=== PATIENT | female | born 1940 | race Caucasian/White ===

== ENCOUNTER 2019-12-12 12:08 | Emergency (ER) | payer MEDICARE, SELFPAY ==
--- NOTE | 2019-12-12 12:39 | ECG_ITS ---
Test Reason : CHEST PAIN Blood Pressure : / mmHG Vent. Rate : 084 BPM Atrial Rate : 101 BPM P-R Int : 000 ms QRS Dur : 142 ms QT Int : 436 ms P-R-T Axes : 064 060 028 degrees QTc Int : 515 ms Normal sinus rhythm with frequent Premature ventricular complexes Nonspecific T wave abnormality Anterior leads Low voltage QRS Right bundle branch block Abnormal ECG No significant changes seen Referred By: Flavio Acevedo Electronically Signed By:CELESTINO DOMINGUEZ MD
[2019-12-23 14:18] VITALS: BMI 24.7
== END 2019-12-12 15:19 | disposition left against medical advice (07) ==
LOC: HO.ED 15:18
PROVIDERS: Emergency Provider Emergency Medicine; PCP Family Medicine
DX: R07.9 Chest pain, unspecified (principal)
CPT/HCPCS: 93005; 99281

== ENCOUNTER → 2020-01-01 14:10 | Outpatient (BNVA) | payer MEDICARE, SELFPAY | PROVIDERS: Visit Provider Physician Assistant | DX: M65.332 Trigger finger, left middle finger (principal) | CPT/HCPCS: 20550; 99202; J1020 ==

== ENCOUNTER → 2020-01-28 10:13 | Outpatient (BNVA) | payer MEDICARE, SELFPAY | PROVIDERS: PCP Family Medicine; Referring Provider Family Medicine; Visit Provider Nurse Practitioner | DX: K21.9 Gastro-esophageal reflux disease without esophagitis (principal); K86.89 Other specified diseases of pancreas; K59.04 Chronic idiopathic constipation; K31.84 Gastroparesis; R14.2 Eructation; K22.4 Dyskinesia of esophagus; Z79.899 Other long term (current) drug therapy | CPT/HCPCS: Q3014 ==

== ENCOUNTER 2020-02-13 11:13 | Emergency (ER) | payer MEDICARE, SELFPAY ==
[2020-02-13 11:21] VITALS: BP 144/58; PULSE 56; RESP 17; TEMP 36.3; O2SAT 97; BMI 22.6
--- NOTE | 2020-02-13 12:13 | ED_ITS ---
HPI - Wound/Laceration General Chief Complaint: Skin/Abscess/Foreign Body Stated Complaint: lac Time Seen by Provider: 02/13/20 11:48 History of Present Illness HPI narrative: Patient cut right thumb yesterday with the scissors while opening a package, no numbness no weakness no paresthesias no other injury Related Data Home Medications Medication Instructions Recorded Confirmed albuterol 90 mcg/actuation aerosol mcg INHALATION 01/01/20 inhaler amlodipine 10 mg tablet 10 mg PO DAILY 01/01/20 glipizide 5 mg tablet 5 mg PO DAILY 01/01/20 lisinopril 20 mg tablet 20 mg PO DAILY 01/01/20 meclizine 12.5 mg tablet 12.5 mg PO DAILY 01/01/20 sennosides 8.6 mg capsule 8.6 mg PO DAILY 01/01/20 sertraline 100 mg tablet 100 mg PO DAILY 01/01/20 sucralfate 1 gram tablet 1 g PO BID 01/01/20 tolterodine 2 mg tablet 2 mg PO DAILY 01/01/20 topiramate 25 mg tablet 25 mg PO DAILY 01/01/20 baclofen 10 mg tablet 10 mg PO TID 01/27/20 01/27/20 pantoprazole 40 mg tablet,delayed 40 mg PO DAILY 01/27/20 01/27/20 release Previous Rx's Medication Instructions Recorded dicyclomine 20 mg tablet 20 mg PO TID #90 tab 11/26/19 Allergies Allergy/AdvReac Type Severity Reaction Status Date / Time prochlorperazine Allergy Severe SEIZURE Verified 01/28/20 10:17 latex [LATEX] Allergy Intermediate RASH Verified 01/28/20 10:17 clarithromycin Allergy Mild RASH Verified 01/28/20 10:17 hydrochlorothiazide Allergy Mild RASH Verified 01/28/20 10:17 adhesive tape [ADHESIVE TAPE] Allergy Unknown RASH Verified 01/28/20 10:17 ibuprofen Allergy Unknown unknown Verified 01/28/20 10:17 metoclopramide [From Reglan] AdvReac Severe SEIZURES Verified 01/28/20 10:17 milk [MILK] AdvReac Intermediate GI UPSET Verified 01/28/20 10:17 BIAXIN Allergy Unknown RASH Uncoded 12/08/19 14:28 COMPAZINE Allergy Unknown DIZZINESS Uncoded 12/08/19 14:28 Review of Systems Review of Systems: No numbness no weakness or paresthesias no joint pain no skin rash Yes all other systems are reviewed and are negative FOR[facility]LY [facility] Past Medical History Source: nursing notes reviewed Medical History (Updated 02/13/20 @ 12:14 by KARLOS Montero) Anemia Arthritis CAD (coronary artery disease) Depression Diabetes History of hysteroscopy HTN (hypertension) Surgical History History of History of esophagogastroduodenoscopy (EGD) Hx of cholecystectomy Hx of colonoscopy Family History Family History (Updated 01/28/20 @ 10:21 by JAYDA Haddad) Father Colon cancer Myocardial infarction Mother Uterine cancer Social History Social History (Updated 01/28/20 @ 10:22 by JAYDA Haddad) Alcohol intake: never Smoking Status: Never smoker Advance Directives: No Advance Directives Information Provided: Yes Sexual orientation: Straight/Heterosexual Gender identity: female Physical Exam Vital Signs: Vital Signs: Last Vital Signs Temp 97.3 F 02/13/20 11:21 Pulse 56 02/13/20 11:21 Resp 17 02/13/20 11:21 BP 144/58 H 02/13/20 11:21 Pulse Ox 97 02/13/20 11:21 Body Mass Index 22.6 General appearance no distress Head normocephalic atraumatic Neck supple Respiratory no distress Extremities the right hand at the base of the thumb dorsal aspect of the MCP joint has a 1 cm superficial laceration, there is full range of motion no evidence of extensor or flexor tendon deficit, no signs of infection in the skin no redness no warmth, full range of motion all joints and neurovascular intact Course Course Course Narrative: Right hand laceration was 1 cm was cleansed and irrigated with normal saline, 2 Steri-Strips were loosely placed and a Band-Aid was placed Discharge Plan Discharge Clinical Impression: Laceration of hand, right Qualifiers: Encounter type: initial encounter Foreign body presence: without foreign body Qualified Code(s): S61.411A - Laceration without foreign body of right hand, initial encounter Patient Disposition: Home, Self-Care Additional Instructions: Removed tape in 3 or 4 days You got a tetanus shot Return any time for redness swelling pain discharge from wound, any sign of infection Prescriptions: No Action dicyclomine 20 mg tablet 20 mg PO TID Qty: 90 RF: 3 pantoprazole [Protonix] 40 mg tablet,delayed release (DR/EC) 40 mg PO DAILY RF: 0 baclofen 10 mg tablet 10 mg PO TID RF: 0 Interventions: ED Discharge Assessment Last Done: 02/13/20 12:38 Discharge Date/Time: 02/13/20 12:39
== END 2020-02-13 12:39 | disposition home or self-care (01) ==
PROVIDERS: Emergency Provider Emergency Medicine Emergency Medical Services; PCP Family Medicine
DX: S61.411A Laceration without foreign body of right hand, initial encounter (principal); S60.511A Abrasion of right hand, initial encounter; M79.644 Pain in right finger(s); W26.0XXA Contact with knife, initial encounter; Y93.9 Activity, unspecified; Y92.009 Unspecified place in unspecified non-institutional (private) residence as the place of occurrence of the external cause; Y99.9 Unspecified external cause status
CPT/HCPCS: 90471; 90715; 99283; 99284

== ENCOUNTER → 2020-02-23 13:10 | Outpatient (BNVA) | payer MEDICARE, SELFPAY | PROVIDERS: PCP Family Medicine; Referring Provider Family Medicine; Visit Provider Internal Medicine Gastroenterology | DX: Z76.89 Persons encountering health services in other specified circumstances (principal) | CPT/HCPCS: Q3014 ==

== ENCOUNTER 2020-04-01 08:03 | Outpatient (REF) | payer MEDICARE, SELFPAY ==
[2020-03-29 12:14] VITALS: BMI 23.4
[2020-04-01 09:57] LABS: MANUAL DIFF FLAG NO
[2020-04-01 10:05] LABS: Basophils Percent Auto 0.4 % (0-2); Eosinophils Percent Auto 0.6 % (0-4); Hematocrit 32.4 % (37-47); Hemoglobin 10.5 g/dl (12.0-16.0); Imm Gran Abs Auto 0.01 X10*3/uL (0.00-0.03); Imm Gran Pct Auto 0.2 % (0.0-0.4); Lymphocytes Absolute Auto 1.5 X10*3/uL (1.2-4.9); Lymphocytes Percent Auto 27.1 % (20-40); Mean Corpuscular HGB Conc 32.4 g/dl (31.0-35.0); Mean Corpuscular Hemoglobin 29.2 pg (27.0-33.0); Mean Corpuscular Volume 90.3 fL (80-98); Mean Platelet Volume 12.2 fL (9.4-12.3); Monocytes Absolute Auto 0.4 X10*3/uL (0.1-1.2); Monocytes Percent Auto 7.3 % (2-11); Neutrophils Absolute Auto 3.5 X10*3/uL (2.0-8.3); Neutrophils Percent Auto 64.4 % (45-73); Platelet Count 258 X10*3/uL (160-400); Red Blood Count 3.59 X10*6/uL (4.20-5.50); Red Cell Distribution Width 12.9 % (11.0-16.0); White Blood Count 5.4 X10*3/uL (4.8-10.8)
[2020-04-01 10:23] LABS: Alanine Aminotransferase 18 U/L (0-31); Albumin Level 3.8 g/dL (3.5-5.0); Alkaline Phosphatase 115 U/L (39-117); Anion Gap 15 (12-20); Aspartate Amino Transferase 24 U/L (5-31); Bilirubin Direct 0.3 mg/dL (0.0-0.5); Bilirubin Total 0.6 mg/dL (0.0-1.0); Blood Urea Nitrogen 21 mg/dL (9-16); C Reactive Protein 0.02 mg/dL (< or = 0.50); Carbon Dioxide 26 mmol/L (22-29); Chloride 106 mmol/L (96-108); Cholesterol 146 mg/dL; Creatinine Clr Calc Pharmacy 21.8; Estimated Glomerular Filt Rate 33; Glucose Random 167 mg/dL (60-115); HDL Cholesterol 55 mg/dL; Iron 63 mcg/dL (30-160); LDL Cholesterol Calculated 75 mg/dl; Percent Iron Saturation 22 % (15-50); Potassium 3.5 mmol/L (3.3-5.1); Sodium 143 mmol/L (135-145); Total Iron Binding Capacity 281 mcg/dL (228-428); Total Protein 6.5 g/dL (6.5-8.0); Triglycerides 83 mg/dL; Unsaturated Iron Binding 218 ug/dL
[2020-04-01 10:33] LABS: Estimated Average Glucose 180 mg/dL; Hemoglobin A1c % 7.9 %
[2020-04-01 10:33] LABS: Creatinine Urine 145.07 mg/dL; Microalbum/Creatinine Ratio Ur 124.7 ug/mg cr
[2020-04-01 10:44] LABS: Ferritin 25 ng/mL (10-250); TSH reflex Free T4 1.53 uIU/mL (0.32-4.0)
[2020-04-01 10:45] LABS: Vitamin D 25-OH Total 42.9 ng/mL (>30)
[2020-04-01 10:57] LABS: Folate 8.7 ng/mL (> or = 4.0); Vitamin B12 376 pg/mL (200-900)
== END 2020-04-01 08:04 | disposition home or self-care (01) ==
LOC: HO.LAB 08:03
PROVIDERS: Absent Provider Family Medicine; PCP Family Medicine; Visit Provider Internal Medicine Gastroenterology
DX: K59.04 Chronic idiopathic constipation (principal); K31.84 Gastroparesis; K21.9 Gastro-esophageal reflux disease without esophagitis; I12.9 Hypertensive chronic kidney disease with stage 1 through stage 4 chronic kidney disease, or unspecified chronic kidney disease; E11.22 Type 2 diabetes mellitus with diabetic chronic kidney disease; N18.32 Chronic kidney disease, stage 3b
CPT/HCPCS: 36415; 80053; 80061; 80076; 82043; 82248; 82306; 82607; 82728; 82746; 83036; 83540; 84443; 85025; 86140

== ENCOUNTER 2020-04-06 06:21 | Day surgery (SDC) | payer MEDICARE, SELFPAY ==
--- NOTE | 2020-04-02 09:56 | HO.ANESPROP2 ---
Documented by User: Jessica Martino 04/02/20 10:01 HPI - Anesthesia Eval Consult details Narrative: 80yo F for Upper Endoscopy and Colonoscopy PMFSH Active Problems Active Problems: All Active Problems (Updated 03/29/20 @ 12:11 by Keyona Serna) IBS (irritable bowel syndrome) (Acute) Ovarian cyst (Acute) Trigger finger, left (Acute) GERD (gastroesophageal reflux disease) (Acute) Pancreatic insufficiency (Acute) Chronic idiopathic constipation (Acute) Gastroparesis (Acute) Functional belching disorder (Acute) Esophageal spasm (Acute) Past Medical History Medical History Anemia Arthritis CAD (coronary artery disease) Depression Diabetes History of hysteroscopy HTN (hypertension) Family History Family History Father Colon cancer Myocardial infarction Mother Uterine cancer Surgical History Surgical History History of History of esophagogastroduodenoscopy (EGD) Hx of cholecystectomy Hx of colonoscopy Hx of eye surgery Social History Social History Alcohol intake: never Smoking Status: Never smoker Use of substances other than those prescribed or required for medical reasons: No Have you been hit, kicked, punched, or otherwise hurt by someone within the past year? If so, by whom?: No Advance Directives: No Advance Directives Information Provided: Yes Sexual orientation: Straight/Heterosexual Gender identity: female Meds Allergies Allergy/AdvReac Type Severity Reaction Status Date / Time prochlorperazine Allergy Severe SEIZURE Verified 02/23/20 13:11 adhesive tape [ADHESIVE TAPE] Allergy Intermediate RASH Verified 03/29/20 12:12 latex [LATEX] Allergy Intermediate RASH Verified 02/23/20 13:11 clarithromycin Allergy Mild RASH Verified 02/23/20 13:11 hydrochlorothiazide Allergy Mild RASH Verified 02/23/20 13:11 ibuprofen Allergy Unknown unknown Verified 02/23/20 13:11 metoclopramide [From Reglan] AdvReac Severe SEIZURES Verified 02/23/20 13:11 milk [MILK] AdvReac Intermediate GI UPSET Verified 02/23/20 13:11 BIAXIN Allergy Intermediate RASH Uncoded 03/29/20 12:12 Home Medications Medication Instructions Recorded Confirmed Last Taken Type albuterol 90 mcg/actuation aerosol 90 mcg INHALATION Q4-6H PRN 01/01/20 03/29/20 Unknown History inhaler amlodipine 10 mg tablet 10 mg PO DAILY 01/01/20 03/29/20 Unknown History glipizide 5 mg tablet 5 mg PO DAILY 01/01/20 03/29/20 Unknown History lisinopril 20 mg tablet 20 mg PO DAILY 01/01/20 03/29/20 Unknown History meclizine 12.5 mg tablet 12.5 mg PO DAILY 01/01/20 03/29/20 Unknown History sennosides 8.6 mg capsule 8.6 mg PO DAILY 01/01/20 03/29/20 Unknown History sertraline 100 mg tablet 100 mg PO DAILY 01/01/20 03/29/20 Unknown History sucralfate 1 gram tablet 1 g PO BID 01/01/20 03/29/20 Unknown History tolterodine 2 mg tablet 2 mg PO DAILY 01/01/20 03/29/20 Unknown History topiramate 25 mg tablet 25 mg PO DAILY 01/01/20 03/29/20 Unknown History baclofen 10 mg tablet 10 mg PO TID 01/27/20 03/29/20 Unknown History pantoprazole 40 mg tablet,delayed 40 mg PO DAILY 01/27/20 03/29/20 Unknown History release Exam Exam Date and Time: April 02, 2020 0956 Narrative Narrative: 11/2019 Normal sinus rhythm with frequent Premature ventricular complexes Nonspecific T wave abnormality Anterior leads Low voltage QRS Right bundle branch block Abnormal ECG No significant changes seen Echo 2017 LVEF 50-55% Intermed diast function Mild pulm htn Assessment and Plan Assessment Anesthesia Assessment: Chart Reviewed Documented by User: Mary Tellez 04/06/20 07:37 [facility] Past Medical History Medical History Anemia Arthritis CAD (coronary artery disease) Depression Diabetes History of hysteroscopy HTN (hypertension) Family History Family History Father Colon cancer Myocardial infarction Mother Uterine cancer Surgical History Surgical History History of History of esophagogastroduodenoscopy (EGD) Hx of cholecystectomy Hx of colonoscopy Hx of eye surgery Social History Social History Alcohol intake: never Smoking Status: Never smoker Use of substances other than those prescribed or required for medical reasons: No Have you been hit, kicked, punched, or otherwise hurt by someone within the past year? If so, by whom?: No Advance Directives: No Advance Directives Information Provided: Yes Sexual orientation: Straight/Heterosexual Gender identity: female Meds Allergies Allergy/AdvReac Type Severity Reaction Status Date / Time prochlorperazine Allergy Severe SEIZURE Verified 02/23/20 13:11 adhesive tape [ADHESIVE TAPE] Allergy Intermediate RASH Verified 03/29/20 12:12 latex [LATEX] Allergy Intermediate RASH Verified 02/23/20 13:11 clarithromycin Allergy Mild RASH Verified 02/23/20 13:11 hydrochlorothiazide Allergy Mild RASH Verified 02/23/20 13:11 ibuprofen Allergy Unknown unknown Verified 02/23/20 13:11 metoclopramide [From Reglan] AdvReac Severe SEIZURES Verified 02/23/20 13:11 milk [MILK] AdvReac Intermediate GI UPSET Verified 02/23/20 13:11 BIAXIN Allergy Intermediate RASH Uncoded 03/29/20 12:12 Home Medications Medication Instructions Recorded Confirmed Last Taken Type albuterol 90 mcg/actuation aerosol 90 mcg INHALATION Q4-6H PRN 01/01/20 03/29/20 Unknown History inhaler amlodipine 10 mg tablet 10 mg PO DAILY 01/01/20 03/29/20 Unknown History glipizide 5 mg tablet 5 mg PO DAILY 01/01/20 03/29/20 Unknown History lisinopril 20 mg tablet 20 mg PO DAILY 01/01/20 03/29/20 Unknown History meclizine 12.5 mg tablet 12.5 mg PO DAILY 01/01/20 03/29/20 Unknown History sennosides 8.6 mg capsule 8.6 mg PO DAILY 01/01/20 03/29/20 Unknown History sertraline 100 mg tablet 100 mg PO DAILY 01/01/20 03/29/20 Unknown History sucralfate 1 gram tablet 1 g PO BID 01/01/20 03/29/20 Unknown History tolterodine 2 mg tablet 2 mg PO DAILY 01/01/20 03/29/20 Unknown History topiramate 25 mg tablet 25 mg PO DAILY 01/01/20 03/29/20 Unknown History baclofen 10 mg tablet 10 mg PO TID 01/27/20 03/29/20 Unknown History pantoprazole 40 mg tablet,delayed 40 mg PO DAILY 01/27/20 03/29/20 Unknown History release Exam Airway Mallampati Class: II TM Dist: >3cm Neck ROM: Full Partial: Upper and Lower Loose/Missing/Broken Teeth: Yes Heart: RRR Lungs: CTA Assessment and Plan Assessment Anesthesia Assessment: Anesthesia Plan Discussed and Chart Reviewed Final Anesthetic Review NPO: Yes ASA Class: II Final Preanesthetic Review: Meds/Allgs Chart Reviewed, Consent Obtained/Reviewed and Anes Risks/Benef Reviewed Patient Risk: Low Procedure Risk: Intermediate Anesthetic Plan Anesthetic Plan: MAC: Disposition: Standard PACU
[2020-04-06 06:41] VITALS: BP 106/62; PULSE 77; RESP 18; TEMP 36.7; O2SAT 99; BMI 22.2
[2020-04-06 06:52] LABS: Glucose, Whole Blood 184 mg/dL (60-115)
[2020-04-06] MEDS: Lactated Ringers 1,000 ML 100 ML IVCONT (07:09)
--- NOTE | 2020-04-06 07:22 | W.PM.OPN ---
Operative Note Operative Note Date of Service: 04/06/20 Narrative: Pre-op diagnosis: Colon cancer screening, history of colon polyps, GERD Post-op diagnosis: other (Gastritis, hiatal hernia, gastric polyps, colon polyps and diverticulosis) Procedure: FLEXIBLE TRANSORAL UPPER GASTROINTESTINAL ENDOSCOPY WITH BIOPSIES AND COLONOSCOPY TILL CECUM WITH BIOPSIES UPPER ENDOSCOPY Consent: Indications for the procedure and potential complications of bleeding, perforation, reaction to medications and missed diagnosis were discussed with the patient and informed consent was obtained. Instrument: Olympus GIF H 190 mid size upper endoscope Monitoring: Vital signs and clinical assessment, continuous EKG monitoring, Pulse oximetry, Carbon Dioxide monitoring and blood pressure monitoring were done throughout the procedure. Procedure: The patient was placed in the left lateral decubitis position and pre-procedure medications were administered and a bite block was placed. The endoscope was inserted into the mouth and advanced under direct vision to the third part of duodenum. A careful inspection was made as the upper endoscope was withdrawn including a retroflexed examination of the proximal stomach; Findings and interventions are described below. Findings: Larynx: Normal Esophagus: GE junction at 33 cms, small hiatal hernia 33 to 35 cms. No esophagitis or Garcia's. Stomach: Multiple 5 mm to 1.5 cms benign appearing polyps in the fundus and body of the stomach - biopsied. Mild gastric erythema with hemorrhagic gastritis. Biopsies were obtained from the antrum. Grade 2 flap valve on retroflexed examination of the cardia. Duodenum: Normal bulb and descending duodenum. Biopsies were obtained from 3rd part of duodenum to check for celiac sprue. Intervention: Biopsies as noted above COLONOSCOPY PROCEDURE NOTE Consent: Indications for the procedure and potential complications of bleeding, perforation, reaction to medications and missed diagnosis were discussed with the patient and informed consent was obtained. Instrument: Olympus PCF H 190 L variable stiffness pediatric colonoscope Monitoring: Vital signs and clinical assessment, intermittent blood pressure monitoring, continuous EKG monitoring, Pulse oximetry and Carbon Dioxide monitoring were done throughout the procedure. Colon withdrawl time was 30 minutes. Procedure: The patient was placed in the left lateral decubitis position and pre-procedure medications were administered. After a digital rectal examination of the ano-rectum, the video colonoscope was inserted into the rectum and advanced through the colon to the cecum. The colonoscope was slowly withdrawn in a retrograde panoramic fashion and the colon mucosa was carefully examined including a retroflexed view of the rectum. Findings and interventions are described below. Procedure Difficulty: : Without difficulty Findings: Terminal Ileum: Not evaluated Cecum: Normal Ascending Colon: A 10 mm non-bleeding AVM in the proximal ascending colon. Transverse Colon: Two 3-4 mm sessile polyps removed with cold biopsy. Descending Colon: Moderate diverticulosis Sigmoid Colon: Severe diverticulosis with luminal narrowing Rectum: Normal Ano-rectum: Normal Colon preparation: Good after copious irrigation Impression and Post Procedure Diagnosis: Endoscopy Findings: ESOPHAGUS: Small hiatal hernia STOMACH: Hemorrhagic gastritis and multiple gastric polyps DUODENUM: Normal, biopsied to check for celiac. Colonoscopy Findings: Two small polyps removed Moderate to severe diverticulosis seen in the left colon Plan: Await pathology results Patient to schedule an appointment in the GI Clinic with Ashley Hayden NP . Repeat Colonoscopy interval based on path results - in 5 years if polyps are adenomatous and due to a history of adenomatous colon polyps Above findings were reviewed with the patient and Gastritis, Gastric polyps, colon polyps and diverticulosis handouts were given in the discharge area Surgeon: Dawn Mas MD Anesthesia: MAC ([employer] QUALITY [employer]URANCE Cuff) Estimated blood loss (mL): 0 Pathology: other (A. Small bowel, B. Gastric antrum, C. Gastric polyps, D. TC polyps) Condition: stable Disposition: PACU
--- NOTE | 2020-04-06 07:22 | MHC.SHP ---
Pre-Procedural Eval Section A The patient is an INPATIENT: No The History & Physical has been completed within 30 days and I have reviewed it.: No Section B Chief Complaint: GERD, Screening Details of Present Illness: Patient insists that she is very Weak. She wants testing done. She feels food sits in her stomach. She has nausea. She occasionally vomits. She is taking Pantoprazole twice daily with no help/ Her blood sugar this AM was 114. Relevant Family History (Specify if Yes): Yes Relevant Social History: None Present Medications: see Short Stay Collaborative assessment Medical History: Significant History (Anemia Arthritis CAD (coronary artery disease) Depression Diabetes History of hysteroscopy HTN (hypertension)) History of Previous Operations: Relevant previous surgery/procedure and date(s) (History of History of esophagogastroduodenoscopy (EGD) Hx of cholecystectomy Hx of colonoscopy) Allergies: Allergies Allergy/AdvReac Type Severity Reaction Status Date / Time prochlorperazine Allergy Severe SEIZURE Verified 02/23/20 13:11 adhesive tape [ADHESIVE TAPE] Allergy Intermediate RASH Verified 03/29/20 12:12 latex [LATEX] Allergy Intermediate RASH Verified 02/23/20 13:11 clarithromycin Allergy Mild RASH Verified 02/23/20 13:11 hydrochlorothiazide Allergy Mild RASH Verified 02/23/20 13:11 ibuprofen Allergy Unknown unknown Verified 02/23/20 13:11 metoclopramide [From Reglan] AdvReac Severe SEIZURES Verified 02/23/20 13:11 milk [MILK] AdvReac Intermediate GI UPSET Verified 02/23/20 13:11 BIAXIN Allergy Intermediate RASH Uncoded 03/29/20 12:12 Review of Systems Sugical H&P ROS: Negative: Constitution, Cardiovascular and Respiratory and Yes, Specify: Gastrointestinal (as noted above) Exam Surgical H&P Exam: Normal: Heart, Normal: Lungs, Normal: Extremities and Normal: Abdomen Plan Diagnosis/Plan: Unchanged I have reviewed the history and physical and performed a pertinent physical examination on my patient. No changes have occurred unless specified.
[2020-04-06 08:53] VITALS: BP 147/68; PULSE 71; RESP 20; TEMP 36.1; O2SAT 98
[2020-04-06 09:08] VITALS: BP 165/68; PULSE 70; RESP 16; O2SAT 100
[2020-04-06 09:23] VITALS: BP 158/62; PULSE 66; RESP 16; TEMP 36.1; O2SAT 100
== END 2020-04-06 10:44 ==
LOC: HO.SSS 06:21
PROVIDERS: PCP Family Medicine; Visit Provider Internal Medicine Gastroenterology
PROC: (CPT 45380; principal; 2020-04-06 07:30)
DX: Z12.11 Encounter for screening for malignant neoplasm of colon (principal); D12.3 Benign neoplasm of transverse colon; K57.30 Diverticulosis of large intestine without perforation or abscess without bleeding; Q27.33 Arteriovenous malformation of digestive system vessel; K29.71 Gastritis, unspecified, with bleeding; K31.7 Polyp of stomach and duodenum; K44.9 Diaphragmatic hernia without obstruction or gangrene; K21.9 Gastro-esophageal reflux disease without esophagitis; E11.9 Type 2 diabetes mellitus without complications; I10 Essential (primary) hypertension; Z79.84 Long term (current) use of oral hypoglycemic drugs; Z79.899 Other long term (current) drug therapy; Z80.0 Family history of malignant neoplasm of digestive organs; Z88.8 Allergy status to other drugs, medicaments and biological substances
CPT/HCPCS: 45380; 43239; 82947; 88305; 88342; J3010

== ENCOUNTER 2020-04-16 11:06 | Outpatient (REF) | payer MEDICARE, SELFPAY ==
--- NOTE | ~2020-04-16 | XR_ITS ---
EXAMINATION: XR HIP, RIGHT CLINICAL INFORMATION: Pain COMPARISON: Previous x-ray February 2019 TECHNIQUE: Two views of the right hip. FINDINGS: Bone alignment is normal. No fracture or dislocation is seen. There is arthritis at the right hip joint with joint space narrowing and osteophyte formation. There is proliferative bone reaction or osteophytes at the right iliac crest and greater trochanter. There are adjacent soft tissue calcifications. There is soft tissue arterial calcification. XR/XR hip RT min 2V IMPRESSION: Moderate right hip arthritis.
== END 2020-04-16 11:07 | disposition home or self-care (01) ==
LOC: HO.XRAY 11:06
PROVIDERS: PCP Family Medicine; Visit Provider Family Medicine
DX: M25.551 Pain in right hip (principal)
CPT/HCPCS: 73502

== ENCOUNTER → 2020-05-05 15:07 | Outpatient (BNVA) | payer MEDICARE, SELFPAY | PROVIDERS: PCP Family Medicine; Visit Provider Internal Medicine Gastroenterology ==

== ENCOUNTER 2020-05-13 22:22 | Observation (INO) | payer MEDICARE, SELFPAY ==
--- NOTE | 2020-05-13 | ECG_ITS ---
Test Reason : CHEST PAIN Blood Pressure : / mmHG Vent. Rate : 088 BPM Atrial Rate : 088 BPM P-R Int : 132 ms QRS Dur : 130 ms QT Int : 448 ms P-R-T Axes : 052 058 038 degrees QTc Int : 542 ms Sinus rhythm with frequent Premature ventricular complexes Right bundle branch block Abnormal ECG When compared with ECG of 12-DEC-2019 12:39, No significant change was found Referred By: Generic ED Physician Electronically Signed By:SUAJTA LINDA
--- NOTE | ~2020-05-13 | XR_ITS ---
EXAMINATION: XR ABDOMEN KUB CLINICAL INDICATION: Constipated COMPARISON: 08/20/2017 TECHNIQUE: AP view of the abdomen and pelvis. FINDINGS: There is formed stool throughout the marginal artery of the large bowel with no large or small bowel dilatation to suggest obstruction. The rectum is air-filled. XR/XR KUB IMPRESSION: No evidence of intestinal obstruction. Large stool burden which may indicate constipation.
--- NOTE | ~2020-05-13 | CT_ITS ---
EXAMINATION: CT HEAD WITHOUT CONTRAST CLINICAL INFORMATION: Headache. COMPARISON: 11/07/2019. TECHNIQUE: Contiguous helical images of the brain were obtained without IV contrast. Multiplanar reconstructions were performed. DLP: 732 mGy-cm. FINDINGS: There are no pathologic extra-axial fluid collections. The lateral, third, fourth ventricles are nondilated and concordant with the appearance of the sulci. There is no evidence for acute intraparenchymal hemorrhage or infarct. There is neither mass nor mass effect. There is no shift of midline structures. The paranasal sinuses and mastoid air cells are clear. There are no osseous lesions. CT/CT head/brain wo con IMPRESSION: No evidence for acute intracranial injury. Automated exposure control (Care Dose) Adjustment of the mA and/or kv according to patient size (this includes techniques or standardized protocols for targeted exams where dose is matched to indication / reason for exam; i.e. extremities or head).
--- NOTE | ~2020-05-13 | XR_ITS ---
EXAMINATION: XR CHEST CLINICAL INFORMATION: Chest pain COMPARISON: 12/11/2017 TECHNIQUE: Frontal view of the chest was obtained. FINDINGS: No significant abnormality is noted involving the heart, lungs, mediastinum, bony thorax or soft tissues. Degenerative changes present in the AC joint and both shoulders. XR/XR chest 1V IMPRESSION: No acute intrathoracic disease.
--- NOTE | ~2020-05-13 | NM_ITS ---
EXERCISE MYOCARDIAL PERFUSION STUDY INDICATION: Chest pain, assess for coronary disease and ischemia TECHNIQUE: The patient was brought in for an exercise perfusion study on 05/14/2020. Patient performed exercise as per [facility]arez protocol and was injected 25 mCi of sestamibi once target heart rate was achieved. Images were obtained using the SPECT gamma camera interlaced with the gating device. Images were obtained in supine position. Resting perfusion study was performed on 05/15/2020. Patient was administered 25 mCi of sestamibi intravenously at rest. Images were then obtained in supine position. Total DLP 53mGy-cm. Images were processed with the software and compared side to side in short axis, horizontal long axis and vertical long axis views. FINDINGS: Raw images were reviewed. The stress perfusion study showed mildly decreased tracer uptake in the distal part of anterior wall. With CT attenuation correction, this is still present. The gated study shows normal LV systolic function with calculated LVEF of 59%. LV cavity is normal in size. The gated study shows normal wall thickening and contraction of segments. Resting study shows diminished tracer uptake along the distal part of anterior wall, similar to the stress acquisition and unchanged with attenuation correction. Gating at rest reveals normal wall motion with ejection fraction at 69%. The findings are consistent with no reversible defects. Mild distal anterior/apical fixed defect. NM/NM cristy perf SPECT rest & str IMPRESSION: 1. Myocardial perfusion imaging study shows no ischemia. Mild defect in the most distal part of anterior wall and adjacent apex that could possibly be from an old nontransmural infarct vs artifactual etiology. 2. Gated LVEF is 59% during stress and 69% during rest. 3. Transient ischemic dilatation ratio 1.32. EKG component of the test reported separately.
[2020-05-13 22:57] VITALS: BP 173/70; PULSE 124; RESP 18; TEMP 37; O2SAT 100; BMI 22.6
--- NOTE | 2020-05-13 23:49 | ED.CHESTPAIN ---
HPI - Chest Pain General Chief Complaint: Chest Pain Stated Complaint: Chest pain Time Seen by Provider: 05/13/20 23:49 Source: patient Mode of arrival: ambulatory Limitations: no limitations History of Present Illness HPI narrative: Of hypertension coronary artery disease had a cardiac catheterization in 2016 which showed mid LAD blockage but stent was not placed it was it was not significant. Patient on baby aspirin today she woke up at 08:00 with headache and noticed her blood pressure was high took her blood pressure medication and baby aspirin that she developed left-sided chest pain radiating to left arm which has been there all day. Patient seems a little anxious blood pressure on arrival was 173/70 heart rate of 124 with frequent PVCs. Patient denies any nausea no vomiting no shortness of breath does not get this kind of headache or chest pain very often , no leg swelling MD complaint: chest pain Pertinent past history: coronary artery disease Onset (ago): day(s) Timing of current episode: constant Prior episodes: Yes Onset: during rest Pain location: left chest Pain radiation: left arm Severity: mild Quality: heaviness Relieving factors: nothing Exacerbating factors: nothing Related Data Home Medications Medication Instructions Recorded Confirmed albuterol 90 mcg/actuation aerosol 90 mcg INHALATION Q4-6H PRN 01/01/20 03/29/20 inhaler amlodipine 10 mg tablet 10 mg PO DAILY 01/01/20 03/29/20 glipizide 5 mg tablet 5 mg PO DAILY 01/01/20 03/29/20 lisinopril 20 mg tablet 20 mg PO DAILY 01/01/20 03/29/20 meclizine 12.5 mg tablet 12.5 mg PO DAILY 01/01/20 03/29/20 sennosides 8.6 mg capsule 8.6 mg PO DAILY 01/01/20 03/29/20 sertraline 100 mg tablet 100 mg PO DAILY 01/01/20 03/29/20 sucralfate 1 gram tablet 1 g PO BID 01/01/20 03/29/20 tolterodine 2 mg tablet 2 mg PO DAILY 01/01/20 03/29/20 topiramate 25 mg tablet 25 mg PO DAILY 01/01/20 03/29/20 baclofen 10 mg tablet 10 mg PO TID 01/27/20 03/29/20 pantoprazole 40 mg tablet,delayed 40 mg PO DAILY 01/27/20 03/29/20 release Allergies Allergy/AdvReac Type Severity Reaction Status Date / Time prochlorperazine Allergy Severe SEIZURE Verified 05/05/20 15:09 adhesive tape [ADHESIVE TAPE] Allergy Intermediate RASH Verified 05/05/20 15:09 latex [LATEX] Allergy Intermediate RASH Verified 05/05/20 15:09 clarithromycin Allergy Mild RASH Verified 05/05/20 15:09 hydrochlorothiazide Allergy Mild RASH Verified 05/05/20 15:09 metoclopramide [From Reglan] AdvReac Severe SEIZURES Verified 05/05/20 15:09 milk [MILK] AdvReac Intermediate GI UPSET Verified 05/05/20 15:09 ibuprofen AdvReac Unknown unknown Verified 05/05/20 15:09 BIAXIN Allergy Intermediate RASH Uncoded 04/06/20 07:41 Review of Systems Review of Systems: Constitutional : No Weight loss, No Fever, No Chills ENT/Mouth : No sore throat, No Rhinorrhea Eyes: No Eye Pain, No Swelling Cardiovascular : ++ Chest Pain, no palpitations Respiratory : No Cough, No Sputum, no shortness of breath Gastrointestinal : no Nausea, No Vomiting, No Diarrhea, No abdominal Pain, no black stools Genitourinary : No Dysuria, No Urinary Frequency Musculoskeletal : No joint pain, No Myalgias, No Joint Swelling Skin : No Skin Lesions, No rash Neuro : No Weakness, No Numbness, No Dizziness, ++Headache Psych : No Anxiety/Panic, No Depression Heme/Lymph: No Bruising, No Lymphadenopathy Endocrine : No Polyuria, No Polydipsia All other systems reviewed and are negative [facility] Past Medical History Medical History Anemia Arthritis CAD (coronary artery disease) Depression Diabetes History of hysteroscopy HTN (hypertension) Surgical History History of History of esophagogastroduodenoscopy (EGD) Hx of cholecystectomy Hx of colonoscopy Hx of eye surgery Family History Family History Father Colon cancer Myocardial infarction Mother Uterine cancer Social History Social History Alcohol intake: never Smoking Status: Never smoker Advance Directives: No Sexual orientation: Straight/Heterosexual Gender identity: female Physical Exam Vital Signs: Vital Signs: Last Vital Signs Temp 98.6 F 05/13/20 22:57 Pulse 62 05/14/20 01:12 Resp 16 05/14/20 01:12 BP 161/65 H 05/14/20 01:12 Pulse Ox 99 05/14/20 01:12 Body Mass Index 22.6 Const: General: comfortable and no acute distress Nutritional Appearance: average body habitus Orientation/consciousness: patient oriented x3 HENMT: Head: Yes normocephalic and Yes atraumatic Ears: hearing grossly normal bilaterally General nose exam: Normal external nose present Face and sinus: Yes normal facial exam Mouth: Normal oral and palatal mucosa present Throat: Yes posterior oropharynx normal Eyes: General: appearance normal, both eyes and all related structures Conjunctivae: conjunctivae normal Sclerae: sclerae normal Corneas: corneas normal Pupils: Equal, round and reactive pupils present Neck: Neck: Yes normal visual inspection, Yes no meningeal signs and Yes no JVD Thyroid: Thyroid normal Carotids: normal carotid upstroke and no bruits Chest: Chest palpation & inspection: normal inspection of the chest Resp: Effort & Inspection: normal respiratory effort Auscultation: no crackles, no rales and no rhonchi Cardio: Jugular venous distension: no JVD Palpation: normal PMI Rate: regular rate Rhythm: regular rhythm Heart sounds: S1 normal heart sound present and S2 normal heart sound present Peripheral pulses: Peripheral pulses 2+ throughout GI: Inspection: Yes normal to inspection Palpation (GI): Soft to palpation and nontender Auscultation: normal bowel sounds : General: Yes no CVA tenderness Back/Spine/Pelvis: Back: no CVA tenderness Thoracic/Lumbar Spine: thoracic and lumbar spine normal to inspection Skin: General skin exam: no rashes or lesions noted Neuro: General: patient oriented x3, gait normal, tone normal, moves all extremities, Normal light touch and pain sensation, no meningeal signs, no focal motor deficits and CN's II-XI intact bilaterally Cranial nerves: Yes Equal, round and reactive pupils present Extrem: General: Yes normal to inspection, Yes no calf tenderness and No pedal edema MDM - Chest Pain MDM Narrative Medical decision making narrative: Patient with nonspecific headache and chest pain with CKD troponin slightly elevated to 14.4 likely from renal failure no acute EKG changes patient does have a history of coronary disease with LAD lesion 5 years ago without any revascularization. Will admit patient for observation to rule out ACS. Patient had CT is negative for any acute bleed Differential Diagnosis Differential diagnosis: Likely unstable angina pectoris, atypical chest pain and chest pain Medical Records Data Attestation: I reviewed the patient's medical records. Lab Data Attestation: I reviewed the patient's lab results. Result diagrams: 05/14/20 00:51 05/14/20 00:52 Labs: Lab Results 05/14/20 05/14/20 05/14/20 Range/Units 00:51 00:51 00:51 WBC 7.5 (4.8-10.8) X10*3/uL RBC 3.59 L (4.20-5.50) X10*6/uL Hgb 10.4 L (12.0-16.0) g/dl Hct 31.9 L (37-47) % MCV 88.9 (80-98) fL MCH 29.0 (27.0-33.0) pg MCHC 32.6 (31.0-35.0) g/dl RDW 12.9 (11.0-16.0) % Plt Count 235 (160-400) X10*3/uL MPV 11.5 (9.4-12.3) fL Immature Gran % (Auto) 0.0 (0.0-0.4) % Neut % (Auto) 51.6 (45-73) % Lymph % (Auto) 37.8 (20-40) % [place] % (Auto) 8.7 (2-11) % Eos % (Auto) 1.6 (0-4) % Baso % (Auto) 0.3 (0-2) % Lymph # (Auto) 2.8 (1.2-4.9) X10*3/uL [place] # (Auto) 0.7 (0.1-1.2) X10*3/uL Eos # (Auto) 0.1 (0.0-0.4) X10*3/uL Baso # (Auto) 0.0 (0.0-0.2) X10*3/uL Abs Immat Gran (auto) 0.00 (0.00-0.03) X10*3/uL Absolute Neuts (auto) 3.9 (2.0-8.3) X10*3/uL Absolute Nucleated RBC 0.000 (0.0-0.012) X10*3/uL Nucleated RBC % (auto) 0.0 (0.0-0.2) /100WBC PT 12.6 (10.8-13.0) SEC INR 1.1 (0.9-1.1) APTT 34.6 (24.1-38.0) SEC Hold Blue Top SEE NOTE Sodium (135-145) mmol/L Potassium (3.3-5.1) mmol/L Chloride (96-108) mmol/L Carbon Dioxide (22-29) mmol/L Anion Gap (12-20) BUN (9-16) mg/dL Creatinine (0.5-1.4) mg/dL Estim Creat Clear Calc Estimated GFR Random Glucose (60-115) mg/dL Calcium (8.4-10.2) mg/dL Troponin I High Sens 14.4 (<3.5-17.0) ng/L 05/14/20 Range/Units 00:52 WBC (4.8-10.8) X10*3/uL RBC (4.20-5.50) X10*6/uL Hgb (12.0-16.0) g/dl Hct (37-47) % MCV (80-98) fL MCH (27.0-33.0) pg MCHC (31.0-35.0) g/dl RDW (11.0-16.0) % Plt Count (160-400) X10*3/uL MPV (9.4-12.3) fL Immature Gran % (Auto) (0.0-0.4) % Neut % (Auto) (45-73) % Lymph % (Auto) (20-40) % [place] % (Auto) (2-11) % Eos % (Auto) (0-4) % Baso % (Auto) (0-2) % Lymph # (Auto) (1.2-4.9) X10*3/uL [place] # (Auto) (0.1-1.2) X10*3/uL Eos # (Auto) (0.0-0.4) X10*3/uL Baso # (Auto) (0.0-0.2) X10*3/uL Abs Immat Gran (auto) (0.00-0.03) X10*3/uL Absolute Neuts (auto) (2.0-8.3) X10*3/uL Absolute Nucleated RBC (0.0-0.012) X10*3/uL Nucleated RBC % (auto) (0.0-0.2) /100WBC PT (10.8-13.0) SEC INR (0.9-1.1) APTT (24.1-38.0) SEC Hold Blue Top Sodium 142 (135-145) mmol/L Potassium 3.5 (3.3-5.1) mmol/L Chloride 104 (96-108) mmol/L Carbon Dioxide 26 (22-29) mmol/L Anion Gap 16 (12-20) BUN 17 H (9-16) mg/dL Creatinine 1.43 H (0.5-1.4) mg/dL Estim Creat Clear Calc 23.2 Estimated GFR 35 Random Glucose 162 H (60-115) mg/dL Calcium 8.9 (8.4-10.2) mg/dL Troponin I High Sens (<3.5-17.0) ng/L ECG Data ECG #1: Attestation: I personally reviewed and interpreted this ECG as follows: Interpretation: Normal sinus rhythm with frequent unifocal PVCs, right bundle branch block no acute ST T wave changes no acute ischemia Discharge Plan Discharge Prescriptions: No Action pantoprazole [Protonix] 40 mg tablet,delayed release (DR/EC) 40 mg PO DAILY RF: 0 baclofen 10 mg tablet 10 mg PO TID RF: 0 sucralfate [Carafate] 1 gram tablet 1 g PO BID RF: 0 albuterol 90 mcg/actuation aerosol 90 mcg inhalation Q4-6H PRN (Reason: Shortness Of Breath) RF: 0 lisinopril 20 mg tablet 20 mg PO DAILY RF: 0 glipizide 5 mg tablet 5 mg PO DAILY RF: 0 senna 8.6 mg capsule 8.6 mg PO DAILY RF: 0 sertraline [Zoloft] 100 mg tablet 100 mg PO DAILY RF: 0 amlodipine 10 mg tablet 10 mg PO DAILY RF: 0 topiramate [Topamax] 25 mg tablet 25 mg PO DAILY RF: 0 meclizine 12.5 mg tablet 12.5 mg PO DAILY RF: 0 tolterodine [Detrol] 2 mg tablet 2 mg PO DAILY RF: 0
[2020-05-14] VITALS (9 sets, daily range): BP systolic 133–166; BP diastolic 54–74; PULSE 62–104; RESP 13–18; TEMP 36.4; O2SAT 98–100
[2020-05-14 00:56] LABS: MANUAL DIFF FLAG NO
[2020-05-14 00:59] LABS: Basophils Percent Auto 0.3 % (0-2); Eosinophils Absolute Auto 0.1 X10*3/uL (0.0-0.4); Eosinophils Percent Auto 1.6 % (0-4); Hematocrit 31.9 % (37-47); Hemoglobin 10.4 g/dl (12.0-16.0); Lymphocytes Absolute Auto 2.8 X10*3/uL (1.2-4.9); Lymphocytes Percent Auto 37.8 % (20-40); Mean Corpuscular HGB Conc 32.6 g/dl (31.0-35.0); Mean Corpuscular Volume 88.9 fL (80-98); Mean Platelet Volume 11.5 fL (9.4-12.3); Monocytes Absolute Auto 0.7 X10*3/uL (0.1-1.2); Monocytes Percent Auto 8.7 % (2-11); Neutrophils Absolute Auto 3.9 X10*3/uL (2.0-8.3); Neutrophils Percent Auto 51.6 % (45-73); Platelet Count 235 X10*3/uL (160-400); Red Blood Count 3.59 X10*6/uL (4.20-5.50); Red Cell Distribution Width 12.9 % (11.0-16.0); White Blood Count 7.5 X10*3/uL (4.8-10.8)
--- NOTE | 2020-05-14 01:03 | PC.NURSE ---
Late Entry: Angel Thomas RN able to obtain IV access and labs on behalf of this RN. Labs drawn and sent for analysis. Awaiting results. When this RN entered the room earlier, pt was away for imaging.
[2020-05-14 01:15] LABS: INTERNATIONAL NORM RATIO 1.1 (0.9-1.1); Prothrombin Time 12.6 SEC (10.8-13.0)
[2020-05-14 01:16] LABS: Anion Gap 16 (12-20); Blood Urea Nitrogen 17 mg/dL (9-16); Calcium 8.9 mg/dL (8.4-10.2); Carbon Dioxide 26 mmol/L (22-29); Chloride 104 mmol/L (96-108); Creatinine Clr Calc Pharmacy 23.2; Estimated Glomerular Filt Rate 35; Glucose Random 162 mg/dL (60-115); Potassium 3.5 mmol/L (3.3-5.1); Sodium 142 mmol/L (135-145)
[2020-05-14 01:18] LABS: Partial Thromboplastin Time 34.6 SEC (24.1-38.0)
[2020-05-14 01:22] LABS: Troponin-I High Sensitivity 14.4 ng/L (<3.5-17.0)
[2020-05-14 01:23] LABS: Glucose Urine UA NEG (NEG); Leukocyte Esterase Urine NEG (NEG); Nitrite Urine NEG (NEG); Specific Gravity - Urine <= 1.005 (1.005-1.025); Urine Blood TRACE (NEG); Urine Ketones NEG (NEG); Urine Protein NEG (NEG-TRACE)
[2020-05-14 01:49] LABS: Appearance Urine CLEAR; Color Urine COLORLESS
[2020-05-14] MEDS: Morphine Sulfate 2 MG/ML CARTRIDGE IVPUSH (01:59)
[2020-05-14] MEDS: ondansetron HCL 4 MG/2 ML VIAL IVPUSH ×2 (01:59→08:21)
[2020-05-14] MEDS: Aspirin 81 MG TAB.CHEW PO (01:59)
[2020-05-14] MEDS: Nitroglycerin 2 % Oint 1 GM Packet 1 INCH TRANSDERMA (02:15)
[2020-05-14 02:38] LABS: Calcium Oxalate Crystals Urine TRACE /LPF; RBC Urine 0-2 /HPF (0); Squamous Epithelial Cell Urine TRACE /LPF; WBC Urine 0-2 /HPF (0-4)
[2020-05-14 02:48] LABS: Troponin-I High Sensitivity 14.1 ng/L (<3.5-17.0)
[2020-05-14 02:49] LABS: COVID-19 Test Negative (Negative); IDNOW Serial# 9DD0AD1C
--- NOTE | 2020-05-14 06:55 | P.HPHOSP_ITS ---
History of Present Illness Date of Service: 05/14/20 Chief Complaint: Chest pain This is a 80-year-old female with past medical history of CAD, depression, diabetes, hypertension, anemia, arthritis who presents to the hospital with complaints of chest pain. Patient reports that she woke up at around 8:00 p.m. with midsternal, pressure-like chest pain, radiating to the left arm, associated with nausea, no vomiting, she feels like she has gas and has not moved her bowels in 3 days. She is very uncomfortable, appears anxious. She also had a headache that was frontal, improved with pain medication received in the ED, pain is 10/10, constant. On arrival to the ED patient vitals are significant for temp of 98.6?, heart rate of 124, respiratory rate of 18, blood pressure of 173/70, satting 100% on room air Labs are significant for WBC count of 7.5, hemoglobin of 10.4, BUN of 17, creatinine of 1.43 which is around her baseline, troponin x2 14 EKG shows sinus rhythm with PVCs, no evidence of ST T-wave changes suggestive of ACS Past medical history as below lung confirmed with patient Review of Systems Review of Systems: Yes all other systems are reviewed and are negative [facility] Medical History Anemia Arthritis CAD (coronary artery disease) Depression Diabetes History of hysteroscopy HTN (hypertension) Family History Father Colon cancer Myocardial infarction Mother Uterine cancer Surgical History History of History of esophagogastroduodenoscopy (EGD) Hx of cholecystectomy Hx of colonoscopy Hx of eye surgery Social History Alcohol intake: never Smoking Status: Never smoker Advance Directives: No Sexual orientation: Straight/Heterosexual Gender identity: female Meds Allergies Allergy/AdvReac Type Severity Reaction Status Date / Time prochlorperazine Allergy Severe SEIZURE Verified 05/14/20 06:46 adhesive tape [ADHESIVE TAPE] Allergy Intermediate RASH Verified 05/14/20 06:46 latex [LATEX] Allergy Intermediate RASH Verified 05/14/20 06:46 clarithromycin Allergy Mild RASH Verified 05/14/20 06:46 hydrochlorothiazide Allergy Mild RASH Verified 05/14/20 06:46 metoclopramide [From Reglan] AdvReac Severe SEIZURES Verified 05/14/20 06:46 milk [MILK] AdvReac Intermediate GI UPSET Verified 05/14/20 06:46 ibuprofen AdvReac Unknown unknown Verified 05/14/20 06:46 BIAXIN Allergy Intermediate RASH Uncoded 05/14/20 06:46 Home Medications Medication Instructions Recorded Confirmed Last Taken Type albuterol 90 mcg/actuation aerosol 90 mcg INHALATION Q4-6H PRN 01/01/20 03/29/20 Unknown History inhaler amlodipine 10 mg tablet 10 mg PO DAILY 01/01/20 03/29/20 Unknown History glipizide 5 mg tablet 5 mg PO DAILY 01/01/20 03/29/20 Unknown History lisinopril 20 mg tablet 20 mg PO DAILY 01/01/20 03/29/20 Unknown History meclizine 12.5 mg tablet 12.5 mg PO DAILY 01/01/20 03/29/20 Unknown History sennosides 8.6 mg capsule 8.6 mg PO DAILY 01/01/20 03/29/20 Unknown History sertraline 100 mg tablet 100 mg PO DAILY 01/01/20 03/29/20 Unknown History sucralfate 1 gram tablet 1 g PO BID 01/01/20 03/29/20 Unknown History tolterodine 2 mg tablet 2 mg PO DAILY 01/01/20 03/29/20 Unknown History topiramate 25 mg tablet 25 mg PO DAILY 01/01/20 03/29/20 Unknown History baclofen 10 mg tablet 10 mg PO TID 01/27/20 03/29/20 Unknown History pantoprazole 40 mg tablet,delayed 40 mg PO DAILY 01/27/20 03/29/20 Unknown Hist ory release Physical Exam Vital Signs and Narrative: Vital Signs: Last Vital Signs Temp 98.6 F 05/13/20 22:57 Pulse 70 05/14/20 02:15 Resp 13 05/14/20 02:00 BP 162/65 H 05/14/20 02:15 Pulse Ox 100 05/14/20 02:00 Body Mass Index 22.6 Const: General: cooperative and no acute distress Orientation/consciousness: patient oriented x3 Eyes: General: appearance normal, both eyes and all related structures Resp: Effort & Inspection: normal respiratory effort and able to speak in complete sentences Cardio: Rate: regular rate Rhythm: regular rhythm GI: Other: Diffuse Abdominal tenderness, no rebound, no guarding Palpation (GI): Soft to palpation Auscultation: normal bowel sounds Skin: General skin exam: no rashes or lesions noted Neuro: General: patient oriented x3 Cognition (Neuro): normal cognition Extrem: General: Yes normal to inspection and Yes no pedal edema Results Labs CBC and Chem 7: 05/14/20 00:51 05/14/20 00:52 Labs: Laboratory Results - last 24 hr 05/14/20 05/14/20 05/14/20 00:51 00:51 00:51 MCV 88.9 MCH 29.0 MCHC 32.6 RDW 12.9 Plt Count 235 MPV 11.5 Immature Gran % (Auto) 0.0 Neut % (Auto) 51.6 Lymph % (Auto) 37.8 [place] % (Auto) 8.7 Eos % (Auto) 1.6 Baso % (Auto) 0.3 Lymph # (Auto) 2.8 [place] # (Auto) 0.7 Eos # (Auto) 0.1 Baso # (Auto) 0.0 Abs Immat Gran (auto) 0.00 Absolute Neuts (auto) 3.9 Absolute Nucleated RBC 0.000 Nucleated RBC % (auto) 0.0 PT 12.6 INR 1.1 APTT 34.6 Hold Blue Top SEE NOTE Anion Gap Estim Creat Clear Calc Estimated GFR Random Glucose Calcium Troponin I High Sens 14.4 Urine Color Urine Appearance Urine pH Ur Specific [place] Urine Protein Urine Glucose (UA) Urine Ketones Urine Blood Urine Nitrite Ur Leukocyte Esterase Urine RBC Urine WBC Ur Squamous Epith Cells Calcium Oxalate Crystal Urine Bacteria COVID-19 ([facility]E) COVID-19 Clin Com 05/14/20 05/14/20 05/14/20 00:52 01:15 02:12 MCV MCH MCHC RDW Plt Count MPV Immature Gran % (Auto) Neut % (Auto) Lymph % (Auto) [place] % (Auto) Eos % (Auto) Baso % (Auto) Lymph # (Auto) [place] # (Auto) Eos # (Auto) Baso # (Auto) Abs Immat Gran (auto) Absolute Neuts (auto) Absolute Nucleated RBC Nucleated RBC % (auto) PT INR APTT Hold Blue Top Anion Gap 16 Estim Creat Clear Calc 23.2 Estimated GFR 35 Random Glucose 162 H Calcium 8.9 Troponin I High Sens Urine Color COLORLESS Urine Appearance CLEAR Urine pH 6.0 Ur Specific [place] <= 1.005 Urine Protein NEG Urine Glucose (UA) NEG Urine Ketones NEG Urine Blood TRACE Urine Nitrite NEG Ur Leukocyte Esterase NEG Urine RBC 0-2 Urine WBC 0-2 Ur Squamous Epith Cells TRACE Calcium Oxalate Crystal TRACE Urine Bacteria NONE COVID-19 ([facility]LENE) Negative COVID-19 Clin Com See Note 05/14/20 02:14 MCV MCH MCHC RDW Plt Count MPV Immature Gran % (Auto) Neut % (Auto) Lymph % (Auto) [place] % (Auto) Eos % (Auto) Baso % (Auto) Lymph # (Auto) [place] # (Auto) Eos # (Auto) Baso # (Auto) Abs Immat Gran (auto) Absolute Neuts (auto) Absolute Nucleated RBC Nucleated RBC % (auto) PT INR APTT Hold Blue Top Anion Gap Estim Creat Clear Calc Estimated GFR Random Glucose Calcium Troponin I High Sens 14.1 Urine Color Urine Appearance Urine pH Ur Specific [place] Urine Protein Urine Glucose (UA) Urine Ketones Urine Blood Urine Nitrite Ur Leukocyte Esterase Urine RBC Urine WBC Ur Squamous Epith Cells Calcium Oxalate Crystal Urine Bacteria COVID-19 ([facility]LENE) COVID-19 Clin Com Imaging Radiologist's Impressions: Impressions Chest X-Ray 05/13/20 23:37 IMPRESSION: No acute intrathoracic disease. Head CT 05/14/20 00:00 IMPRESSION: No evidence for acute intracranial injury. Automated exposure control (Care Dose) Adjustment of the mA and/or kv according to patient size (this includes techniques or standardized protocols for targeted exams where dose is matched to indication / reason for exam; i.e. extremities or head). Assessment and Plan (1) Chest pain: Qualifiers: Chest pain type: unspecified Qualified Code(s): R07.9 - Chest pain, unspecified Status: Acute (2) Abdominal pain: Status: Acute (3) Constipation: Status: Acute (4) Headache: Status: Acute This is a 80-year-old female with past medical history of coronary artery disease, diabetes, hypertension who presents to the hospital with chest pain and headache. Also reports abdominal pain and constipation. # chest pain - symptoms are cardiac although her troponins is only 14 x 2, EKG shows sinus rhythm with PVCs with no suggestion of ACS - will consult Cardiology given her history of coronary artery disease for further recommendation - may need outpatient follow-up # abdominal pain/constipation/gas - she has not moved her bowels in 3 days, patient is also feeling nauseous and reports that she has low p.o. intake - will obtain KUB - simethicone for gas relief, Maalox for GERD symptoms - will start her on milk of magnesia, and docusate scheduled # headache - Tylenol p.r.n. DVT prophylaxis: Early ambulation
[2020-05-14 07:40] LABS: Glucose, Whole Blood 84 mg/dL (60-115)
[2020-05-14] MEDS: 0.9 % Sodium Chloride Flush 3 ML SYRINGE IVFLUSH ×3 (08:21→20:15)
[2020-05-14] MEDS: Heparin Sodium,Porcine 5,000 UNIT/ML VIAL 5000 UNIT SUBCUT ×2 (08:21→20:14)
[2020-05-14] MEDS: Simethicone 80 MG TAB.CHEW PO (08:21)
[2020-05-14] MEDS: Docusate Sodium 100 MG CAPSULE PO ×2 (08:21→20:14)
[2020-05-14 09:22] LABS: Troponin-I High Sensitivity 16.4 ng/L (<3.5-17.0)
--- NOTE | 2020-05-14 09:50 | CA_ITS ---
Acquisition Time: 2020-05-14 10:57:16 Total Exercise Time: 00:05:50 Test Indications: Abnormal ECG Medications: Protocol: CABRERA Max HR: 102 BPM 71% of Pred: 142 BPM Max BP: 174/060 mmHG Max Work Load: 5.8 METS Exercise stress nuclear using Cabrera protocol. Test modified. Pt tolerated well, denies any anginal sx. METS 5.80 . Pt exercised for 5 min 50 sec. TAPHRup to 72%. EKG with RBBB and oxcc. PVC's. No ischemic changes seen on EKG, however pt's HR only 72 %. Will wait for nuclear images to assess for ischemia. Normotensive response to exercise. Test reviewed with Dr. Mendoza. Referred By: Jairo Mendoza Overread By: Fawn Florian NP
[2020-05-14 10:17] LABS: Troponin-I High Sensitivity 14.2 ng/L (<3.5-17.0)
--- NOTE | 2020-05-14 10:46 | PC.NURSE ---
patient taken off the floor for stress test.
--- NOTE | 2020-05-14 10:56 | PM.CNCAR ---
History of Present Illness History of Present Illness Date of Service: 05/14/20 Consult reason: chest pain Chief complaint: Chest pain Narrative: This is a cardiology consultation regarding chest pain. Patient states that yesterday she got substernal chest pain when she was resting. This apparently into her left arm. This was intense and she describes intensity at 8/10. As the pain would not go way she came to the ER. The description of pains actually sounds anginal in nature. She had these pains on and off at different times in the past but yesterday was the most intense episode. Troponins were checked overnight and they were within normal limits but because of the typical nature of the pain she was nevertheless admitted. Patient has known coronary disease. She had cardiac catheterization in 2005. At that time, she had there was diffuse segmental disease in the LAD involving the origin of diagonal branch; this was extending into the diagonal. No significant disease elsewhere. There was also regional hypokinesis. She was recommended medical therapy at that time. She states that [facility]. Review of Systems Review of Systems: Yes all other systems are reviewed and are negative Cardiovascular: Cardiovascular: Reports as per HPI, Reports no additional cardiovascular complaints, Denies acrocyanosis, Denies cool extremities, Denies painful fingertips, Reports chest pain, Reports chest pain at rest, Denies diaphoresis, Denies syncope, Denies irregular heart rhythm, Denies claudication, Denies leg edema, Denies lightheadedness, Denies palpitations and Denies dyspnea Respiratory: Respiratory: Denies dyspnea Neurologic: Denies syncope Endocrine: Endocrine: Denies palpitations [facility] Past Medical History Medical History (Updated 05/14/20 @ 11:02 by Jairo Mendoza MD) Anemia Arthritis Atherosclerotic cardiovascular disease CAD (coronary artery disease) Depression Diabetes Essential hypertension History of hysteroscopy HTN (hypertension) Family History Family History Father Colon cancer Myocardial infarction Mother Uterine cancer Surgical History Surgical History History of History of esophagogastroduodenoscopy (EGD) Hx of cholecystectomy Hx of colonoscopy Hx of eye surgery Social History Social History Alcohol intake: never Smoking Status: Never smoker Smoked in Last 30 Days: No Use of substances other than those prescribed or required for medical reasons: No Advance Directives: Yes Advance Directives on File: Yes Advance Directives Date on File: 05/14/20 Sexual orientation: Straight/Heterosexual Gender identity: female Meds Allergies Allergy/AdvReac Type Severity Reaction Status Date / Time prochlorperazine Allergy Severe SEIZURE Verified 05/14/20 06:46 adhesive tape [ADHESIVE TAPE] Allergy Intermediate RASH Verified 05/14/20 06:46 latex [LATEX] Allergy Intermediate RASH Verified 05/14/20 06:46 clarithromycin Allergy Mild RASH Verified 05/14/20 06:46 hydrochlorothiazide Allergy Mild RASH Verified 05/14/20 06:46 metoclopramide [From Reglan] AdvReac Severe SEIZURES Verified 05/14/20 06:46 milk [MILK] AdvReac Intermediate GI UPSET Verified 05/14/20 06:46 ibuprofen AdvReac Unknown unknown Verified 05/14/20 06:46 BIAXIN Allergy Intermediate RASH Uncoded 05/14/20 06:46 Active Medications: Current Medications Generic Name Dose Route Start Last Admin Trade Name Freq PRN Reason Stop Dose Admin Acetaminophen 650 mg 05/14/20 07:59 Acetaminophen 325 Mg Tablet PO Q6H PRN Pain, Mild (Pain Scale 1-3) Al Hydroxide/Mg Hydroxide 15 ml 05/14/20 07:59 Magnesium Hydrox/Alum Hydrox 30 Ml Oral.Susp PO Q6H PRN heart burn Docusate Sodium 100 mg 05/14/20 09:00 05/14/20 08:21 Docusate Sodium 100 Mg Capsule PO 100 mg BID DAVID Administration Heparin Sodium (Porcine) 5,000 unit 05/14/20 09:00 05/14/20 08:21 Heparin Sodium,Porcine 5,000 Unit/Ml Vial SUBCUT 5,000 unit Q12H DAVID Administration Magnesium Hydroxide 30 ml 05/14/20 07:59 Milk Of Magnesia 30 Ml Oral.Susp PO DAILY PRN Constipation Ondansetron HCl 4 mg 05/14/20 07:59 05/14/20 08:21 Ondansetron Hcl 4 Mg/2 Ml Vial IVPUSH 4 mg Q8H PRN Administration Nausea and Vomiting Sodium Chloride 3 ml 05/14/20 08:00 05/14/20 08:21 0.9 % Sodium Chloride Flush 3 Ml Syringe IVFLUSH 3 ml [facility] Administration Home Medications Medication Instructions Recorded Confirmed Last Taken Type amlodipine 10 mg tablet 10 mg PO DAILY 01/01/20 05/14/20 Unknown History glipizide 5 mg tablet 5 mg PO BID 01/01/20 05/14/20 Unknown History lisinopril 20 mg tablet 40 mg PO DAILY 01/01/20 05/14/20 Unknown History meclizine 12.5 mg tablet 12.5 mg PO BID PRN 01/01/20 05/14/20 Unknown History sennosides 8.6 mg capsule 17.2 mg PO BEDTIME 01/01/20 05/14/20 Unknown History sertraline 100 mg tablet 200 mg PO DAILY 01/01/20 05/14/20 Unknown History topiramate 25 mg tablet 25 mg PO DAILY 01/01/20 05/14/20 Unknown History pantoprazole 40 mg tablet,delayed 40 mg PO BID 01/27/20 05/14/20 Unknown History release acetaminophen [Mapap Arthritis 650 mg PO Q8H PRN 05/14/20 05/14/20 Unknown History Pain] albuterol sulfate 2 puff PO Q4-6H PRN 05/14/20 05/14/20 Unknown History amitriptyline 0.5 tab PO BEDTIME 05/14/20 05/14/20 Unknown History cholecalciferol (vitamin D3) 1 tab PO DAILY 05/14/20 05/14/20 Unknown History clonazepam 0.5 mg PO BID PRN 05/14/20 05/14/20 Unknown History docusate sodium [DOK] 1 cap PO BID 05/14/20 05/14/20 Unknown History loratadine 10 mg PO DAILY 05/14/20 05/14/20 Unknown History methocarbamol 375 mg PO Q12H PRN 05/14/20 05/14/20 Unknown History tolterodine 2 mg PO DAILY 05/14/20 05/14/20 Unknown History Physical Exam Vital Signs: Vital Signs: Last Vital Signs Temp 98.6 F 05/13/20 22:57 Pulse 71 05/14/20 08:33 Resp 18 05/14/20 08:33 BP 166/67 H 05/14/20 08:33 Pulse Ox 98 05/14/20 04:00 Body Mass Index 22.6 Const: General: cooperative, comfortable and no acute distress Orientation/consciousness: patient oriented x3 HENMT: Other: Unremarkable Neck: Neck: Yes normal visual inspection Chest: Chest palpation & inspection: normal inspection of the chest Resp: Auscultation: clear to auscultation bilaterally, no crackles and no wheezes Cardio: Jugular venous distension: no JVD Palpation: normal PMI Heart sounds: S1 normal heart sound present, S2 normal heart sound present, no gallops, no murmurs and no rubs GI: Palpation (GI): Soft to palpation Back/Spine/Pelvis: Other: unremarkable Skin: General skin exam: no rashes or lesions noted Neuro: General: patient oriented x3 Extrem: General: Yes no clubbing, cyanosis or edema Psych: Mental Status: mental status grossly normal Results Labs and Meds Result diagrams: 05/14/20 00:51 05/14/20 00:52 Lab results: Laboratory Results - last 24 hr 05/14/20 05/14/20 05/14/20 00:51 00:51 00:51 WBC 7.5 RBC 3.59 L Hgb 10.4 L Hct 31.9 L MCV 88.9 MCH 29.0 MCHC 32.6 RDW 12.9 Plt Count 235 MPV 11.5 Immature Gran % (Auto) 0.0 Neut % (Auto) 51.6 Lymph % (Auto) 37.8 Tyrrell % (Auto) 8.7 Eos % (Auto) 1.6 Baso % (Auto) 0.3 Lymph # (Auto) 2.8 Tyrrell # (Auto) 0.7 Eos # (Auto) 0.1 Baso # (Auto) 0.0 Abs Immat Gran (auto) 0.00 Absolute Neuts (auto) 3.9 Absolute Nucleated RBC 0.000 Nucleated RBC % (auto) 0.0 PT 12.6 INR 1.1 APTT 34.6 Hold Blue Top SEE NOTE Sodium Potassium Chloride Carbon Dioxide Anion Gap BUN Creatinine Estim Creat Clear Calc Estimated GFR POC Glucose Random Glucose Calcium Troponin I High Sens 14.4 Urine Color Urine Appearance Urine pH Ur Specific [place] Urine Protein Urine Glucose (UA) Urine Ketones Urine Blood Urine Nitrite Ur Leukocyte Esterase Urine RBC Urine WBC Ur Squamous Epith Cells Calcium Oxalate Crystal Urine Bacteria COVID-19 (SELENE) COVID-19 Clin Com 05/14/20 05/14/20 05/14/20 00:52 01:15 02:12 WBC RBC Hgb Hct MCV MCH MCHC RDW Plt Count MPV Immature Gran % (Auto) Neut % (Auto) Lymph % (Auto) [place] % (Auto) Eos % (Auto) Baso % (Auto) Lymph # (Auto) [place] # (Auto) Eos # (Auto) Baso # (Auto) Abs Immat Gran (auto) Absolute Neuts (auto) Absolute Nucleated RBC Nucleated RBC % (auto) PT INR APTT Hold Blue Top Sodium 142 Potassium 3.5 Chloride 104 Carbon Dioxide 26 Anion Gap 16 BUN 17 H Creatinine 1.43 H Estim Creat Clear Calc 23.2 Estimated GFR 35 POC Glucose Random Glucose 162 H Calcium 8.9 Troponin I High Sens Urine Color COLORLESS Urine Appearance CLEAR Urine pH 6.0 Ur Specific [place] <= 1.005 Urine Protein NEG Urine Glucose (UA) NEG Urine Ketones NEG Urine Blood TRACE Urine Nitrite NEG Ur Leukocyte Esterase NEG Urine RBC 0-2 Urine WBC 0-2 Ur Squamous Epith Cells TRACE Calcium Oxalate Crystal TRACE Urine Bacteria NONE COVID-19 ([facility]LENE) Negative COVID-[employer] Com See Note 05/14/20 05/14/20 05/14/20 02:14 07:36 08:54 WBC RBC Hgb Hct MCV MCH MCHC RDW Plt Count MPV Immature Gran % (Auto) Neut % (Auto) Lymph % (Auto) [place] % (Auto) Eos % (Auto) Baso % (Auto) Lymph # (Auto) [place] # (Auto) Eos # (Auto) Baso # (Auto) Abs Immat Gran (auto) Absolute Neuts (auto) Absolute Nucleated RBC Nucleated RBC % (auto) PT INR APTT Hold Blue Top Sodium Potassium Chloride Carbon Dioxide Anion Gap BUN Creatinine Estim Creat Clear Calc Estimated GFR POC Glucose 84 Random Glucose Calcium Troponin I High Sens 14.1 16.4 Urine Color Urine Appearance Urine pH Ur Specific [place] Urine Protein Urine Glucose (UA) Urine Ketones Urine Blood Urine Nitrite Ur Leukocyte Esterase Urine RBC Urine WBC Ur Squamous Epith Cells Calcium Oxalate Crystal Urine Bacteria COVID-19 ([facility]LENE) [employer] Com 05/14/20 09:40 WBC RBC Hgb Hct MCV MCH MCHC RDW Plt Count MPV Immature Gran % (Auto) Neut % (Auto) Lymph % (Auto) [place] % (Auto) Eos % (Auto) Baso % (Auto) Lymph # (Auto) [place] # (Auto) Eos # (Auto) Baso # (Auto) Abs Immat Gran (auto) Absolute Neuts (auto) Absolute Nucleated RBC Nucleated RBC % (auto) PT INR APTT Hold Blue Top Sodium Potassium Chloride Carbon Dioxide Anion Gap BUN Creatinine Estim Creat Clear Calc Estimated GFR POC Glucose Random Glucose Calcium Troponin I High Sens 14.2 Urine Color Urine Appearance Urine pH Ur Specific [place] Urine Protein Urine Glucose (UA) Urine Ketones Urine Blood Urine Nitrite Ur Leukocyte Esterase Urine RBC Urine WBC Ur Squamous Epith Cells Calcium Oxalate Crystal Urine Bacteria COVID-19 ([facility]E) COVID-19 Clin Com ECG Attestation: I personally reviewed and interpreted this ECG as follows: Interpretation: EKG on admission with sinus rhythm; 88/Min; right bundle-branch block pattern;frequent PVCs; Imaging Radiologist's impression: Impressions Chest X-Ray 05/13/20 23:37 IMPRESSION: No acute intrathoracic disease. Head CT 05/14/20 00:00 IMPRESSION: No evidence for acute intracranial injury. Automated exposure control (Care Dose) Adjustment of the mA and/or kv according to patient size (this includes techniques or standardized protocols for targeted exams where dose is matched to indication / reason for exam; i.e. extremities or head). KUB X-Ray 05/14/20 06:53 IMPRESSION: No evidence of intestinal obstruction. Large stool burden which may indicate constipation. Assessment and Plan (1) Precordial chest pain: Status: Acute (2) Atherosclerotic cardiovascular disease: Status: Acute (3) Essential hypertension: Status: Acute Her chest pain sounds typical; 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 Her blood pressure is on the higher side and that may play a role. So far, troponins are negative multiple times and hence there is no evidence of acute coronary syndrome. We will get an echocardiogram and stress test to assess the degree of ischemia. Based on this, possible cardiac catheterization may be required.
--- NOTE | 2020-05-14 12:00 | P.EN_ITS ---
Event Note Date of Service: 05/14/20 Event Note: 80-year-old female with known history of coronary artery disease s tatus post catheterization in 2005 that showed diffuse segmental disease in the LAD patient has been managed medically presented to [facility] due to substernal chest pain/with radiation to left arm, symptoms started while restingm,presentation was typical for anginal pain, EKG showed no ischemic changes troponin x2 were negative but due to history of coronary artery disease patient got admitted to telemetry unit , this a.m. patient seen by Dr. Mendoza and plan is for patient to undergo stress test and to have an echocardiogram, depending on findings patient might need cardiac catheterization Will resume home medications including Norvasc 10 mg daily due to elevated blood pressure. Continue all other home medication.
--- NOTE | 2020-05-14 12:35 | PC.NURSE ---
PATIENT STILL OFF FLOOR AT CARDIO FOR STRESS TEST
[2020-05-14] MEDS: amLODIPine Besylate 10 MG TABLET PO (16:14)
[2020-05-14] MEDS: Magnesium Hydrox/Alum Hydrox 30 ML ORAL.SUSP 15 ML PO (16:20)
[2020-05-14 16:33] LABS: Glucose, Whole Blood 238 mg/dL (60-115)
--- NOTE | 2020-05-14 17:00 | CA_ITS ---
Transthoracic Echocardiogram Patient (Last, First, Middle): Barbara Julian, Gender: Female Date of : 1940 Age: 80 Procedure Date: 05/14/2020 Procedure Type: Transthoracic Echocardiogram Location: [facility] [place] Height: 152.4 cm Weight: 52.62 kg BSA: 1.48 m2 Heart Rate: bpm BP: 166 / 60 mmHg Aquaculturist: Referring MD: Jairo Mendoza MD Symptoms: Chest pain Study Quality: Good ECG Rhythm: Sinus Conclusions: - The left ventricular systolic function is mild to moderately decreased. The visually estimated ejection fraction is between 40-45%. The calculated ejection fraction is 42% by biplane method. - There is mild calcification of the aortic valve. - There is mild mitral annular calcification. Findings Left Ventricle Normal left ventricular cavity size. There is normal left ventricular wall thickness. The left ventricular systolic function is mild to moderately decreased. The visually estimated ejection fraction is between 40-45%. The calculated ejection fraction is 42% by biplane method. There is moderate global hypokinesis. E/E prime ratio is between 8 and 15 consistent with indeterminate filling pressures. Evidence suggests grade I (mild) diastolic dysfunction. Right Ventricle Normal right ventricular cavity size and systolic function. Atria The left atrium is moderately dilated. The right atrium is normal in size. Aortic Valve There is a normal trileaflet aortic valve. There is mild calcification of the aortic valve. There is no aortic valve stenosis. There is trace (trivial) aortic valve regurgitation. Mitral Valve There is mild mitral annular calcification. There is mild mitral valve regurgitation. There is no mitral valve stenosis. Pulmonic Valve The pulmonic valve was not well visualized. Tricuspid Valve Normal tricuspid valve structure. There is mild tricuspid valve regurgitation. The pulmonary artery systolic pressure is normal. Great Vessels The aortic annulus, sinuses of valsalva, and asc aorta are normal in size. Venous The inferior vena cava is normal in size and collapses greater than 50% with inspiration. Pericardium/Pleural There is no evidence of pericardial effusion. Prior Study Comparison No prior study available for comparison. Measurements 2D Linear Measurements IVSd: 0.89 0.6-0.9/0.6-1.0 cm LVIDd: 5.17 3.9-5.3/4.2-5.9 cm LVIDd Index: 3.49 2.4-3.2/2.2-3.1 cm/m2 LVIDs: 3.59 2.0-3.6 cm LVPWd: 0.91 0.7-1.1 cm Ao Root: 3.00 2.1-3.5 cm LA Diam: 4.20 2.7-3.8/3.0-4.0 cm LAIDs Index: 2.84 1.5-2.3 cm/m2 LV Mass: 208.74 67-162/88-224 g LV Mass Index: 141.04 43-95/49-115 g/m2 LVOT Diam: 2.10 3.0+(-)1.3 cm 2D Systolic Function EF 4C: 47.00 >55% EF 2C: 41.60 >55% EF BiP: 42.30 >55% Mitral Valve MV Pk E: 0.91 MV PK A: 1.11 MV Decel Time: 299.00 E/A: 0.80 E'Lateral: 8.61 E'Medial: 6.48 E/E' Med: 14.00 E/E' Lat: 10.50 PHT: 88.00 MVA PHT: 2.50 Decel [place]: 3.03 Aortic Valve AoV Pk Walter: 1.81 AoV Mn Walter: 1.09 AoV VTI: 0.47 AoV Pk Grad: 13.00 Aov Mn Grad: 6.00 ALEXANDER Cont.VTI: 1.65 LVOT LVOT Pk Walter: 0.87 LVOT Mn Walter: 0.59 LVOT VTI: 0.23 LVOT Pk Grad: 3.00 LVOT Mn Grad: 2.00 LVOT Diam: 2.10 LVOT Area: 3.46 Diastolic Function MV Pk E: 0.91 MV Pk A: 1.11 E/A: 0.80 E'Medial: 6.48 E/E' Med: 14.00 E' Laterial: 8.61 E/E' Lat: 10.50 Tricuspid Valve TR Pk Walter: 2.30 TR Pk Grad: 20.00 RA Press: 3.00 RVSP: 23.00 Great Vessels Aorta Ao Root-2D: 3.00 2.0-3.7 cm Pulmonary Valve PV Pk Walter: 0.96 Peak PV Grad: 4.00 Updated in Other Vendor System with Status of Final Jairo Mendoza MD electronically signed on 05/14/2020 2:55:45 PM with status of Final
[2020-05-14] MEDS: Amitriptyline HCl 10 MG TABLET 5 MG PO (20:12)
[2020-05-14] MEDS: Ibuprofen 800 MG TABLET PO (20:13)
[2020-05-14] MEDS: clonazePAM 0.5 MG TABLET PO (20:20)
[2020-05-14 20:23] LABS: Glucose, Whole Blood 215 mg/dL (60-115)
[2020-05-14] MEDS: Insulin Lispro 100 UNIT/ML 3 ML VIAL SUBCUT (20:32)
[2020-05-15 00:08] VITALS: BP 129/47; PULSE 72; RESP 18; TEMP 36.6; O2SAT 96
[2020-05-15 04:00] VITALS: BP 134/68; PULSE 55; RESP 18; TEMP 36.6; O2SAT 97
[2020-05-15 06:29] LABS: MANUAL DIFF FLAG NO
[2020-05-15 06:53] LABS: Basophils Percent Auto 0.4 % (0-2); Eosinophils Absolute Auto 0.1 X10*3/uL (0.0-0.4); Hematocrit 28.6 % (37-47); Hemoglobin 9.3 g/dl (12.0-16.0); Imm Gran Abs Auto 0.01 X10*3/uL (0.00-0.03); Imm Gran Pct Auto 0.2 % (0.0-0.4); Lymphocytes Absolute Auto 1.8 X10*3/uL (1.2-4.9); Lymphocytes Percent Auto 36.4 % (20-40); Mean Corpuscular HGB Conc 32.5 g/dl (31.0-35.0); Mean Corpuscular Hemoglobin 28.9 pg (27.0-33.0); Mean Corpuscular Volume 88.8 fL (80-98); Mean Platelet Volume 12.2 fL (9.4-12.3); Monocytes Absolute Auto 0.4 X10*3/uL (0.1-1.2); Monocytes Percent Auto 8.5 % (2-11); Neutrophils Absolute Auto 2.6 X10*3/uL (2.0-8.3); Neutrophils Percent Auto 53.5 % (45-73); Platelet Count 196 X10*3/uL (160-400); Red Blood Count 3.22 X10*6/uL (4.20-5.50); White Blood Count 4.9 X10*3/uL (4.8-10.8)
[2020-05-15 06:58] LABS: Anion Gap 12 (12-20); Blood Urea Nitrogen 18 mg/dL (9-16); Calcium 8.5 mg/dL (8.4-10.2); Carbon Dioxide 28 mmol/L (22-29); Chloride 107 mmol/L (96-108); Creatinine Clr Calc Pharmacy 21.8; Estimated Glomerular Filt Rate 33; Glucose Random 91 mg/dL (60-115); Potassium 4.1 mmol/L (3.3-5.1); Sodium 143 mmol/L (135-145)
[2020-05-15 07:38] LABS: Glucose, Whole Blood 86 mg/dL (60-115)
[2020-05-15 08:00] VITALS: BP 162/72; PULSE 63; RESP 17; TEMP 36.6; O2SAT 99
[2020-05-15] MEDS: Heparin Sodium,Porcine 5,000 UNIT/ML VIAL 5000 UNIT SUBCUT (09:05)
[2020-05-15 09:08] VITALS: BP 162/72; PULSE 63
[2020-05-15] MEDS: amLODIPine Besylate 10 MG TABLET PO (09:08)
[2020-05-15] MEDS: lisinopriL 40 MG TABLET PO (09:08)
[2020-05-15] MEDS: Cholecalciferol (Vitamin D3) 25 MCG TABLET 50 MCG PO (09:08)
[2020-05-15] MEDS: Docusate Sodium 100 MG CAPSULE PO (09:08)
[2020-05-15] MEDS: Loratadine 10 MG TABLET PO (09:08)
[2020-05-15] MEDS: Sertraline HCL 100 MG TABLET 200 MG PO (09:09)
[2020-05-15] MEDS: Tolterodine Tartrate LA 2 MG CAP.ER.24H PO (09:09)
[2020-05-15] MEDS: Topiramate 25 MG TABLET PO (09:09)
[2020-05-15] MEDS: 0.9 % Sodium Chloride Flush 3 ML SYRINGE IVFLUSH (09:17)
[2020-05-15] MEDS: polyethylene glycoL 3350 17 GM POWD.PACK PO ×2 (10:30→10:36)
--- NOTE | 2020-05-15 10:37 | MHC.CM.PN ---
Shan lives w/daughter in a home. She owns a cane and states it is sufficient for her mobility needs. She still drives. There are stairs in her home that she says she is able to confidently manage. Patient does indicate services through her insurance, however is unable to describe what type of services and how often. Patient was very sleepy during interview. Her goal is to go home when D/C ready w/resumption of insurance services. Her son or her daughter to drive her. CM to follow.
--- NOTE | 2020-05-15 10:53 | HO.PM.IMPN ---
Subjective Subjective Date of Service: 05/15/20 Interval History: f/u chest pain No chest pain at this time, reports constipation Review of Systems Review of Systems: Yes all other systems are reviewed and are negative Constitutional Constitutional: Denies chills and Denies fever(s) Cardiovascular Cardiovascular: Denies chest pain Respiratory Respiratory: Denies cough Gastrointestinal Gastrointestinal: Denies abdominal pain, Reports constipation, Denies diarrhea, Denies nausea and Denies vomiting Physical Exam Vital Signs: Vital Signs: Last Vital Signs Temp 97.9 F 05/15/20 08:00 Pulse 63 05/15/20 09:08 Resp 17 05/15/20 08:00 BP 162/72 H 05/15/20 09:08 Pulse Ox 99 05/15/20 08:00 Body Mass Index 22.6 Const: General: alert and awake Nutritional Appearance: well nourished Orientation/consciousness: patient oriented x3 HENMT: Head: Yes normocephalic and Yes atraumatic Eyes: Sclerae: sclerae normal Chest: Chest palpation & inspection: normal inspection of the chest Resp: Effort & Inspection: normal respiratory effort and no respiratory distress Cardio: Rate: regular rate Rhythm: regular rhythm GI: Palpation (GI): Soft to palpation and nontender Neuro: General: patient oriented x3 Cranial nerves: Yes CN's II-XII intact bilaterally and Yes Bilaterally intact EOM present Extrem: Other: no edema Objective Data Current Medications Generic Name Dose Route Start Last Admin Trade Name Freq PRN Reason Stop Dose Admin Acetaminophen 650 mg 05/14/20 07:59 Acetaminophen 325 Mg Tablet PO Q6H PRN Pain, Mild (Pain Scale 1-3) Al Hydroxide/Mg Hydroxide 15 ml 05/14/20 07:59 05/14/20 16:20 Magnesium Hydrox/Alum Hydrox 30 Ml Oral.Susp PO 15 ml Q6H PRN Administration heart burn Albuterol Sulfate 2 puff 05/14/20 12:06 Albuterol Sulfate 90 Mcg 8 Gm Inhaler INHALE Q4H PRN wheezing Amitriptyline HCl 5 mg 05/14/20 21:00 05/14/20 20:12 Amitriptyline Hcl 10 Mg Tablet PO 5 mg BEDTIME DAVID Administration Amlodipine Besylate 10 mg 05/15/20 09:00 05/15/20 09:08 Amlodipine Besylate 10 Mg Tablet PO 10 mg DAILY DAVID Administration Protocol Clonazepam 0.5 mg 05/14/20 12:06 05/14/20 20:20 Clonazepam 0.5 Mg Tablet PO 0.5 mg BID PRN Administration Anxiety Docusate Sodium 100 mg 05/14/20 21:00 05/15/20 09:08 Docusate Sodium 100 Mg Capsule PO 100 mg BID DAVID Administration Heparin Sodium (Porcine) 5,000 unit 05/14/20 09:00 05/15/20 09:05 Heparin Sodium,Porcine 5,000 Unit/Ml Vial SUBCUT 5,000 unit Q12H DAVID Administration Insulin Human Lispro 0 unit 05/14/20 21:00 05/15/20 09:17 Insulin Lispro 100 Unit/Ml 3 Ml Vial SUBCUT Not Given QIDACHS [facility] Protocol Lisinopril 40 mg 05/15/20 09:00 05/15/20 09:08 Lisinopril 40 Mg Tablet PO 40 mg DAILY DAVID Administration Protocol Loratadine 10 mg 05/15/20 09:00 05/15/20 09:08 Loratadine 10 Mg Tablet PO 10 mg DAILY [facility] Administration Magnesium Hydroxide 30 ml 05/14/20 07:59 Milk Of Magnesia 30 Ml Oral.Susp PO DAILY PRN Constipation Meclizine HCl 12.5 mg 05/14/20 12:06 Meclizine Hcl 12.5 Mg Tablet PO BID PRN Dizziness Non-Formulary Medication 375 mg 05/14/20 12:06 Methocarbamol PO Q12H PRN SPASMS Ondansetron HCl 4 mg 05/14/20 07:59 05/14/20 08:21 Ondansetron Hcl 4 Mg/2 Ml Vial IVPUSH 4 mg Q8H PRN Administration Nausea and Vomiting Polyethylene Glycol 17 gm 05/15/20 09:00 05/15/20 10:36 Polyethylene Glycol 3350 17 Gm Powd.Pack PO 17 gm DAILY [facility] Administration Sertraline HCl 200 mg 05/15/20 09:00 05/15/20 09:09 Sertraline Hcl 100 Mg Tablet PO 200 mg DAILY [facility] Administration Sodium Chloride 3 ml 05/14/20 08:00 05/15/20 09:17 0.9 % Sodium Chloride Flush 3 Ml Syringe IVFLUSH 3 ml QSHIFT [facility] Administration Tolterodine Tartrate 2 mg 05/15/20 09:00 05/15/20 09:09 Tolterodine Tartrate La 2 Mg Cap.Er.24h PO 2 mg DAILY DAVID Administration Topiramate 25 mg 05/15/20 09:00 05/15/20 09:09 Topiramate 25 Mg Tablet PO 25 mg DAILY DAVID Administration Vitamin D 50 mcg 05/15/20 09:00 05/15/20 09:08 Cholecalciferol (Vitamin D3) 25 Mcg Tablet PO 50 mcg DAILY DAVID Administration Labs CBC & Chem 7: 05/15/20 06:08 05/15/20 06:08 Assessment and Plan (1) Chest pain: Status: Acute (2) Abdominal pain: Status: Acute (3) Constipation: Status: Acute (4) Headache: Status: Acute Assessment and Plan: This is a 80-year-old female with past medical history of coronary artery disease, diabetes, hypertension who presents to the hospital with chest pain and headache. Also reports abdominal pain and constipation. chest pain known CAD Cardiology following -stress test 05/14, resting images today. 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 -SSI, POCs, ADA diet Mood Sertraline DVT prophylaxis: Heparin Attending: Dr. Bass
[2020-05-15 11:20] LABS: Glucose, Whole Blood 195 mg/dL (60-115)
[2020-05-15 11:38] VITALS: BP 152/69; PULSE 62; RESP 18; TEMP 37.7; O2SAT 100
--- NOTE | 2020-05-15 11:59 | PM.PNCARD ---
Subjective Subjective Date of Service: 05/15/20 Interval history: She states that she feels okay. No further chest pain. Review of Systems Review of Systems Yes all other systems are reviewed and are negative Cardiovascular: Reports as per HPI, Reports no additional cardiovascular complaints, Denies acrocyanosis, Denies cool extremities, Denies painful fingertips, Reports chest pain, Reports chest pain at rest, Denies diaphoresis, Denies syncope, Denies irregular heart rhythm, Denies claudication, Denies leg edema, Denies lightheadedness, Denies palpitations and Denies dyspnea Respiratory: Denies dyspnea Denies syncope Endocrine: Denies palpitations Physical Exam Vital Signs: Last Vital Signs Temp 99.8 F 05/15/20 11:38 Pulse 62 05/15/20 11:38 Resp 18 05/15/20 11:38 BP 152/69 H 05/15/20 11:38 Pulse Ox 100 05/15/20 11:38 Body Mass Index 22.6 Const General: cooperative, comfortable and no acute distress Orientation/consciousness: patient oriented x3 HENMT Other: Unremarkable Neck Neck: Yes normal visual inspection Chest Chest palpation & inspection: normal inspection of the chest Resp Auscultation: clear to auscultation bilaterally, no crackles and no wheezes Cardio Jugular venous distension: no JVD Palpation: normal PMI Heart sounds: S1 normal heart sound present, S2 normal heart sound present, no gallops, no murmurs and no rubs GI Palpation (GI): Soft to palpation Back/Spine/Pelvis Other: unremarkable Skin General skin exam: no rashes or lesions noted Neuro General: patient oriented x3 Extrem General: Yes no clubbing, cyanosis or edema Psych Mental Status: mental status grossly normal Results Labs and Meds Result diagrams: 05/15/20 06:08 05/15/20 06:08 Lab results: Laboratory Results - last 24 hr 05/14/20 05/14/20 05/15/20 16:30 20:19 06:08 WBC 4.9 RBC 3.22 L Hgb 9.3 L Hct 28.6 L MCV 88.8 MCH 28.9 MCHC 32.5 RDW 13.0 Plt Count 196 MPV 12.2 Immature Gran % (Auto) 0.2 Neut % (Auto) 53.5 Lymph % (Auto) 36.4 [place] % (Auto) 8.5 Eos % (Auto) 1.0 Baso % (Auto) 0.4 Lymph # (Auto) 1.8 [place] # (Auto) 0.4 Eos # (Auto) 0.1 Baso # (Auto) 0.0 Abs Immat Gran (auto) 0.01 Absolute Neuts (auto) 2.6 Absolute Nucleated RBC 0.000 Nucleated RBC % (auto) 0.0 Sodium Potassium Chloride Carbon Dioxide Anion Gap BUN Creatinine Estim Creat Clear Calc Estimated GFR POC Glucose 238 H 215 H Random Glucose Calcium 05/15/20 05/15/20 05/15/20 06:08 07:09 11:05 WBC RBC Hgb Hct MCV MCH MCHC RDW Plt Count MPV Immature Gran % (Auto) Neut % (Auto) Lymph % (Auto) [place] % (Auto) Eos % (Auto) Baso % (Auto) Lymph # (Auto) [place] # (Auto) Eos # (Auto) Baso # (Auto) Abs Immat Gran (auto) Absolute Neuts (auto) Absolute Nucleated RBC Nucleated RBC % (auto) Sodium 143 Potassium 4.1 Chloride 107 Carbon Dioxide 28 Anion Gap 12 BUN 18 H Creatinine 1.52 H Estim Creat Clear Calc 21.8 Estimated GFR 33 POC Glucose 86 195 H Random Glucose 91 D Calcium 8.5 Progress Note: A&P Assessment and plan (1) Precordial chest pain: Status: Acute (2) Atherosclerotic cardiovascular disease: Status: Acute (3) Essential hypertension: Status: Acute Assessment and Plan: Her chest pain sounds typical; 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 Her blood pressure is on the higher side and that may play a role. So far, troponins are negative multiple times and hence there is no evidence of acute coronary syndrome. Echocardiogram shows diminished LVEF at about 40-45%. Myocardial perfusion imaging shows no ischemia but possible nontransmural infarct in the distal anterior wall/apex versus artifact. We can start her on some beta-blockers/nitrates. Discharge planning. Can arrange outpatient follow-up. Fall Risk Details Current Medications: Current Medications Generic Name Dose Route Start Last Admin Trade Name Freq PRN Reason Stop Dose Admin Acetaminophen 650 mg 05/14/20 07:59 Acetaminophen 325 Mg Tablet PO Q6H PRN Pain, Mild (Pain Scale 1-3) Al Hydroxide/Mg Hydroxide 15 ml 05/14/20 07:59 05/14/20 16:20 Magnesium Hydrox/Alum Hydrox 30 Ml Oral.Susp PO 15 ml Q6H PRN Administration heart burn Albuterol Sulfate 2 puff 05/14/20 12:06 Albuterol Sulfate 90 Mcg 8 Gm Inhaler INHALE Q4H PRN wheezing Amitriptyline HCl 5 mg 05/14/20 21:00 05/14/20 20:12 Amitriptyline Hcl 10 Mg Tablet PO 5 mg BEDTIME DAVID Administration Amlodipine Besylate 10 mg 05/15/20 09:00 05/15/20 09:08 Amlodipine Besylate 10 Mg Tablet PO 10 mg DAILY DAVID Administration Protocol Clonazepam 0.5 mg 05/14/20 12:06 05/14/20 20:20 Clonazepam 0.5 Mg Tablet PO 0.5 mg BID PRN Administration Anxiety Docusate Sodium 100 mg 05/14/20 21:00 05/15/20 09:08 Docusate Sodium 100 Mg Capsule PO 100 mg BID DAVID Administration Heparin Sodium (Porcine) 5,000 unit 05/14/20 09:00 05/15/20 09:05 Heparin Sodium,Porcine 5,000 Unit/Ml Vial SUBCUT 5,000 unit Q12H DAVID Administration Insulin Human Lispro 0 unit 05/14/20 21:00 05/15/20 09:17 Insulin Lispro 100 Unit/Ml 3 Ml Vial SUBCUT Not Given QIDACHS [facility] [place] Protocol Lisinopril 40 mg 05/15/20 09:00 05/15/20 09:08 Lisinopril 40 Mg Tablet PO 40 mg DAILY [facility] [place] Administration Protocol Loratadine 10 mg 05/15/20 09:00 05/15/20 09:08 Loratadine 10 Mg Tablet PO 10 mg DAILY DAVID Administration Magnesium Hydroxide 30 ml 05/14/20 07:59 Milk Of Magnesia 30 Ml Oral.Susp PO DAILY PRN Constipation Meclizine HCl 12.5 mg 05/14/20 12:06 Meclizine Hcl 12.5 Mg Tablet PO BID PRN Dizziness Non-Formulary Medication 375 mg 05/14/20 12:06 Methocarbamol PO Q12H PRN SPASMS Ondansetron HCl 4 mg 05/14/20 07:59 05/14/20 08:21 Ondansetron Hcl 4 Mg/2 Ml Vial IVPUSH 4 mg Q8H PRN Administration Nausea and Vomiting Polyethylene Glycol 17 gm 05/15/20 11:01 Polyethylene Glycol 3350 17 Gm Powd.Pack PO DAILY DAVID Sertraline HCl 200 mg 05/15/20 09:00 05/15/20 09:09 Sertraline Hcl 100 Mg Tablet PO 200 mg DAILY DAVID Administration Sodium Chloride 3 ml 05/14/20 08:00 05/15/20 09:17 0.9 % Sodium Chloride Flush 3 Ml Syringe IVFLUSH 3 ml QSHIFT DAVID Administration Tolterodine Tartrate 2 mg 05/15/20 09:00 05/15/20 09:09 Tolterodine Tartrate La 2 Mg Cap.Er.24h PO 2 mg DAILY DAVID Administration Topiramate 25 mg 05/15/20 09:00 05/15/20 09:09 Topiramate 25 Mg Tablet PO 25 mg DAILY DAVID Administration Vitamin D 50 mcg 05/15/20 09:00 05/15/20 09:08 Cholecalciferol (Vitamin D3) 25 Mcg Tablet PO 50 mcg DAILY DAVID Administration Time Spent With Patient Time: Total time spent is greater than 50% in coordination of care (as documented) at patient's floor/unit and/or counseling patient: Time with patient: less than 15 minutes
[2020-05-15] MEDS: Insulin Lispro 100 UNIT/ML 3 ML VIAL SUBCUT (12:13)
--- NOTE | 2020-05-15 12:52 | PM.DS ---
DS: Providers Provider Date of Service: 05/15/20 Date of admission: 05/14/20 06:53 Primary care physician: Maddison Saini DO Consults: 05/14/20 07:59 Consult to Cardiology Routine Consulting Provider: Jairo Mendoza Reason for consultation: hx of CAD, chest pain Has provider been notified: Yes DS: Diagnosis Discharge Diagnosis (1) Chest pain: Status: Acute (2) Abdominal pain: Status: Acute (3) Constipation: Status: Acute (4) Headache: Status: Acute DS: Medications Discharge Medications Home Medications: Home Medications Medication Instructions Recorded Confirmed amlodipine 10 mg tablet 10 mg PO DAILY 01/01/20 05/14/20 glipizide 5 mg tablet 5 mg PO BID 01/01/20 05/14/20 lisinopril 20 mg tablet 40 mg PO DAILY 01/01/20 05/14/20 meclizine 12.5 mg tablet 12.5 mg PO BID PRN 01/01/20 05/14/20 sennosides 8.6 mg capsule 17.2 mg PO BEDTIME 01/01/20 05/14/20 sertraline 100 mg tablet 200 mg PO DAILY 01/01/20 05/14/20 topiramate 25 mg tablet 25 mg PO DAILY 01/01/20 05/14/20 pantoprazole 40 mg tablet,delayed 40 mg PO BID 01/27/20 05/14/20 release acetaminophen [Mapap Arthritis 650 mg PO Q8H PRN 05/14/20 05/14/20 Pain] albuterol sulfate 2 puff PO Q4-6H PRN 05/14/20 05/14/20 amitriptyline 0.5 tab PO BEDTIME 05/14/20 05/14/20 cholecalciferol (vitamin D3) 1 tab PO DAILY 05/14/20 05/14/20 clonazepam 0.5 mg PO BID PRN 05/14/20 05/14/20 docusate sodium [DOK] 1 cap PO BID 05/14/20 05/14/20 loratadine 10 mg PO DAILY 05/14/20 05/14/20 methocarbamol 375 mg PO Q12H PRN 05/14/20 05/14/20 tolterodine 2 mg PO DAILY 05/14/20 05/14/20 DS: Summary Hospital Course Hospital Course: This is a 80-year-old female with past medical history of CAD, depression, diabetes, hypertension, anemia, arthritis who presents to the hospital with complaints of chest pain. Patient reports that she woke up at around 8:00 p.m. with midsternal, pressure-like chest pain, radiating to the left arm, associated with nausea, no vomiting, she feels like she has gas and has not moved her bowels in 3 days. She is very uncomfortable, appears anxious. She also had a headache that was frontal, improved with pain medication received in the ED, pain is 10/10, constant. On arrival to the ED patient vitals are significant for temp of 98.6?, heart rate of 124, respiratory rate of 18, blood pressure of 173/70, satting 100% on room air Labs are significant for WBC count of 7.5, hemoglobin of 10.4, BUN of 17, creatinine of 1.43 which is around her baseline, troponin x2 14 Chest pain She was admitted to the telemetry unit for close monitoring. She had no further episodes of chest pain. She has a 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 Troponin remained negative multiple times and hence there is no evidence of acute coronary syndrome. She was seen in consultation by Cardiology and underwent Echocardiogram which showed diminished LVEF at about 40-45% and Myocardial perfusion imaging shows no ischemia but possible nontransmural infarct in the distal anterior wall/apex versus artifact. She was recommended to start on Toprol-XL, Imdur, p.r.n. sublingual nitroglycerin and plan for outpatient follow-up with Cardiology Constipation Showed large stool burden but no evidence of intestinal obstruction. She was continued on home bowel regimen in addition to MiraLax with good effect. Time Spent with Patient Time attestation: Total time spent providing and/or coordinating discharge services: Discharge coordination time: Greater than 30 minutes Physical Exam Vital Signs: Vital Signs: Last Vital Signs Temp 99.8 F 05/15/20 11:38 Pulse 62 05/15/20 11:38 Resp 18 05/15/20 11:38 BP 152/69 H 05/15/20 11:38 Pulse Ox 100 05/15/20 11:38 Body Mass Index 22.6 Const: General: alert and awake Nutritional Appearance: well nourished Orientation/consciousness: patient oriented x3 HENMT: Head: Yes normocephalic and Yes atraumatic Eyes: Sclerae: sclerae normal Chest: Chest palpation & inspection: normal inspection of the chest Resp: Effort & Inspection: normal respiratory effort and no respiratory distress Cardio: Rate: regular rate Rhythm: regular rhythm GI: Palpation (GI): Soft to palpation and nontender Neuro: General: patient oriented x3 Cranial nerves: Yes CN's II-XII intact bilaterally and Yes Bilaterally intact EOM present Extrem: Other: no edema DS: Data Data Completed and Pending Labs on day of discharge: Laboratory Results - last 24 hr 05/14/20 05/14/20 05/15/20 16:30 20:19 06:08 WBC 4.9 RBC 3.22 L Hgb 9.3 L Hct 28.6 L MCV 88.8 MCH 28.9 MCHC 32.5 RDW 13.0 Plt Count 196 MPV 12.2 Immature Gran % (Auto) 0.2 Neut % (Auto) 53.5 Lymph % (Auto) 36.4 [place] % (Auto) 8.5 Eos % (Auto) 1.0 Baso % (Auto) 0.4 Lymph # (Auto) 1.8 [place] # (Auto) 0.4 Eos # (Auto) 0.1 Baso # (Auto) 0.0 Abs Immat Gran (auto) 0.01 Absolute Neuts (auto) 2.6 Absolute Nucleated RBC 0.000 Nucleated RBC % (auto) 0.0 Sodium Potassium Chloride Carbon Dioxide Anion Gap BUN Creatinine Estim Creat Clear Calc Estimated GFR POC Glucose 238 H 215 H Random Glucose Calcium 05/15/20 05/15/20 05/15/20 06:08 07:09 11:05 WBC RBC Hgb Hct MCV MCH MCHC RDW Plt Count MPV Immature Gran % (Auto) Neut % (Auto) Lymph % (Auto) [place] % (Auto) Eos % (Auto) Baso % (Auto) Lymph # (Auto) [place] # (Auto) Eos # (Auto) Baso # (Auto) Abs Immat Gran (auto) Absolute Neuts (auto) Absolute Nucleated RBC Nucleated RBC % (auto) Sodium 143 Potassium 4.1 Chloride 107 Carbon Dioxide 28 Anion Gap 12 BUN 18 H Creatinine 1.52 H Estim Creat Clear Calc 21.8 Estimated GFR 33 POC Glucose 86 195 H Random Glucose 91 D Calcium 8.5 Discharge Plan Discharge Patient Disposition: Home, Self-Care Referrals: Maddison Saini DO [Primary Care Provider] - Discharge Medications: New metoprolol succinate [Toprol XL] 25 mg tablet extended release 24 hr 25 mg PO DAILY 30 Days Qty: 30 RF: 0 isosorbide mononitrate 30 mg tablet extended release 24 hr 30 mg PO DAILY 30 Days Qty: 30 RF: 0 nitroglycerin 0.3 mg tablet, sublingual 0.3 mg sublingual Q5M PRN (Reason: chest pain) Qty: 14 RF: 0 Continued tolterodine 2 mg capsule,extended release 24hr 2 mg PO DAILY RF: 0 clonazepam 0.5 mg tablet 0.5 mg PO BID PRN (Reason: Anxiety) RF: 0 acetaminophen [Mapap Arthritis Pain] 650 mg tablet extended release 650 mg PO Q8H PRN (Reason: Pain) RF: 0 methocarbamol 750 mg tablet 375 mg PO Q12H PRN (Reason: SPASMS) RF: 0 amitriptyline 10 mg tablet 0.5 tab PO BEDTIME RF: 0 docusate sodium [DOK] 100 mg capsule 1 cap PO BID RF: 0 albuterol sulfate 90 mcg/actuation HFA aerosol inhaler 2 puff PO Q4-6H PRN (Reason: wheezing) RF: 0 loratadine 10 mg tablet 10 mg PO DAILY RF: 0 cholecalciferol (vitamin D3) 50 mcg (2,000 unit) tablet 1 tab PO DAILY RF: 0 pantoprazole [Protonix] 40 mg tablet,delayed release (DR/EC) 40 mg PO BID RF: 0 lisinopril 20 mg tablet 40 mg PO DAILY RF: 0 glipizide 5 mg tablet 5 mg PO BID RF: 0 senna 8.6 mg capsule 17.2 mg PO BEDTIME RF: 0 sertraline [Zoloft] 100 mg tablet 200 mg PO DAILY RF: 0 amlodipine 10 mg tablet 10 mg PO DAILY RF: 0 topiramate [Topamax] 25 mg tablet 25 mg PO DAILY RF: 0 meclizine 12.5 mg tablet 12.5 mg PO BID PRN (Reason: Dizziness) RF: 0 Activity on Discharge: As tolerated Stand Alone Forms: Patient Portal Discharge page Care Plan Goals: See below Health Concerns: Chest pain Constipation Plan of Treatment: Chest pain- stress test was negative. You have been started on new heart medications. 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
--- NOTE | 2020-05-15 14:12 | MHC.CM.PN ---
D/C order home no services. One of her children to transport.
[2020-05-15 16:00] VITALS: BP 147/72; PULSE 52; RESP 15; TEMP 36.7; O2SAT 99
[2020-05-15 16:44] LABS: Glucose, Whole Blood 211 mg/dL (60-115)
== END 2020-05-15 17:30 | disposition home or self-care (01) ==
LOC: HO.ED 05-14 01:44 → HO.EDOVER 05-14 07:13 → HO.IMC 05-14 12:28
PROVIDERS: Hospitalist; Admitting Provider Internal Medicine; Emergency Provider Internal Medicine; PCP Family Medicine; Visit Provider Internal Medicine
DX: R07.2 Precordial pain (principal); I25.10 Atherosclerotic heart disease of native coronary artery without angina pectoris; I10 Essential (primary) hypertension; R10.9 Unspecified abdominal pain; K59.00 Constipation, unspecified; R51.9 Headache, unspecified; E11.9 Type 2 diabetes mellitus without complications; I49.3 Ventricular premature depolarization; I45.10 Unspecified right bundle-branch block; R94.31 Abnormal electrocardiogram [ECG] [EKG]; F32.9 Major depressive disorder, single episode, unspecified; Z20.822 Contact with and (suspected) exposure to COVID-19; Z98.890 Other specified postprocedural states; Z88.8 Allergy status to other drugs, medicaments and biological substances; Z88.4 Allergy status to anesthetic agent; Z91.011 Allergy to milk products; Z91.040 Latex allergy status; Z79.84 Long term (current) use of oral hypoglycemic drugs; Z79.899 Other long term (current) drug therapy
CPT/HCPCS: 36415; 70450; 71045; 74018; 78452; 80048; 81001; 82947; 84484; 85025; 85610; 85730; 87635; 93005; 93016; 93017; 93018; 93306; 99219; 99285; A9500; J2270; J2405

== ENCOUNTER → 2020-06-15 10:41 | Outpatient (BNVA) | payer MEDICARE, SELFPAY | PROVIDERS: PCP Family Medicine; Visit Provider Nurse Practitioner Family | DX: R07.9 Chest pain, unspecified (principal); I25.10 Atherosclerotic heart disease of native coronary artery without angina pectoris; E78.5 Hyperlipidemia, unspecified; I10 Essential (primary) hypertension; M54.2 Cervicalgia; Z79.899 Other long term (current) drug therapy | CPT/HCPCS: 99212 ==

== ENCOUNTER 2020-07-12 11:23 | Outpatient (REF) | payer MEDICARE, SELFPAY ==
--- NOTE | ~2020-07-12 | XR_ITS ---
EXAMINATION: XR CERVICAL SPINE CLINICAL INFORMATION: Neck pain COMPARISON: There are no prior studies available for comparison. TECHNIQUE: 6 views of the cervical spine, inclusive of flexion and extension views, were obtained. FINDINGS: Mineralization is normal. There is no fracture or vertebral malalignment. Posterior elements are intact. The disc spaces are preserved. There is anterior marginal osteophyte and ossification of the anterior longitudinal ligament. There is also ossification of the spinous ligament posteriorly. The foramina appear relatively preserved. The prevertebral soft tissues appear within normal limits. There is calcific plaque in both carotid bulbs. XR/XR cervical spine min 6V IMPRESSION: Spondylosis. No fracture or malalignment.
== END 2020-07-12 11:24 | disposition home or self-care (01) ==
LOC: HO.XRAY 11:23
PROVIDERS: Absent Provider Family Medicine; PCP Family Medicine; Visit Provider Emergency Medicine
DX: M54.2 Cervicalgia (principal)
CPT/HCPCS: 72052

== ENCOUNTER 2020-08-10 11:29 | Outpatient (REF) | payer MEDICARE, SELFPAY ==
[2020-08-10 13:15] LABS: Creatinine Urine 103.12 mg/dL; Microalbum/Creatinine Ratio Ur 497.4 ug/mg cr
[2020-08-10 13:21] LABS: MANUAL DIFF FLAG NO
[2020-08-10 13:28] LABS: Basophils Percent Auto 0.2 % (0-2); Eosinophils Percent Auto 0.6 % (0-4); Hematocrit 28.2 % (37-47); Hemoglobin 9.2 g/dl (12.0-16.0); Imm Gran Abs Auto 0.01 X10*3/uL (0.00-0.03); Imm Gran Pct Auto 0.2 % (0.0-0.4); Lymphocytes Absolute Auto 1.4 X10*3/uL (1.2-4.9); Lymphocytes Percent Auto 29.4 % (20-40); Mean Corpuscular HGB Conc 32.6 g/dl (31.0-35.0); Mean Corpuscular Hemoglobin 28.4 pg (27.0-33.0); Mean Platelet Volume 12.4 fL (9.4-12.3); Monocytes Absolute Auto 0.4 X10*3/uL (0.1-1.2); Monocytes Percent Auto 8.4 % (2-11); Neutrophils Absolute Auto 2.9 X10*3/uL (2.0-8.3); Neutrophils Percent Auto 61.2 % (45-73); Platelet Count 246 X10*3/uL (160-400); Red Blood Count 3.24 X10*6/uL (4.20-5.50); Red Cell Distribution Width 12.4 % (11.0-16.0); White Blood Count 4.7 X10*3/uL (4.8-10.8)
[2020-08-10 13:36] LABS: Estimated Average Glucose 197 mg/dL; Hemoglobin A1c % 8.5 %
[2020-08-10 13:56] LABS: Alanine Aminotransferase 14 U/L (0-31); Albumin Level 3.6 g/dL (3.5-5.0); Alkaline Phosphatase 126 U/L (39-117); Anion Gap 13 (12-20); Aspartate Amino Transferase 21 U/L (5-31); Bilirubin Total 0.5 mg/dL (0.0-1.0); Blood Urea Nitrogen 18 mg/dL (9-16); Calcium 8.2 mg/dL (8.4-10.2); Carbon Dioxide 26 mmol/L (22-29); Chloride 100 mmol/L (96-108); Cholesterol 119 mg/dL; Estimated Glomerular Filt Rate 28; Glucose Random 416 mg/dL (60-115); HDL Cholesterol 49 mg/dL; LDL Cholesterol Calculated 57 mg/dl; Sodium 135 mmol/L (135-145); Thyroid Stimulating Hormone 1.23 uIU/mL (0.32-4.0); Total Protein 6.1 g/dL (6.5-8.0); Triglycerides 69 mg/dL
[2020-08-17 05:12] LABS: Fructosamine 462 umol/L (205-285)
== END 2020-08-10 11:30 | disposition home or self-care (01) ==
LOC: HO.LAB 11:29
PROVIDERS: PCP Family Medicine; Referring Provider Family Medicine; Visit Provider Family Medicine
DX: E11.22 Type 2 diabetes mellitus with diabetic chronic kidney disease (principal)
CPT/HCPCS: 36415; 80053; 80061; 82043; 82985; 83036; 84443; 85025

== ENCOUNTER 2020-09-03 00:02 | Inpatient (IN) | payer MEDICARE, SELFPAY ==
[2020-09-03] VITALS (18 sets, daily range): BP systolic 128–173; BP diastolic 56–90; PULSE 32–80; RESP 11–17; TEMP 36.1–36.9; O2SAT 97–100; BMI 23.1
--- NOTE | 2020-09-03 | ECG_ITS ---
Test Reason : CP Blood Pressure : / mmHG Vent. Rate : 071 BPM Atrial Rate : 071 BPM P-R Int : 142 ms QRS Dur : 142 ms QT Int : 476 ms P-R-T Axes : 068 038 040 degrees QTc Int : 517 ms Sinus rhythm with occasional Premature ventricular complexes Right bundle branch block Abnormal ECG When compared with ECG of 13-MAY-2020 22:32, No significant change was found Referred By: Sam Palomo Electronically Signed By:Valentín Stevenson
--- NOTE | 2020-09-03 | ECG_ITS ---
Test Reason : CP Blood Pressure : / mmHG Vent. Rate : 088 BPM Atrial Rate : 070 BPM P-R Int : 146 ms QRS Dur : 142 ms QT Int : 462 ms P-R-T Axes : 057 020 038 degrees QTc Int : 559 ms Sinus rhythm with frequent , and consecutive Premature ventricular complexes Right bundle branch block Nonspecific T wave changes Prolonged QT Abnormal ECG When compared with ECG of 03-SEP-2020 00:16, QT has lengthened Referred By: Trudy Burkett Electronically Signed By:Valentín Stevenson
--- NOTE | ~2020-09-03 | XR_ITS ---
EXAMINATION: XR CHEST CLINICAL INFORMATION: Chest pain COMPARISON: 05/13/2020 TECHNIQUE: Frontal view of the chest was obtained. FINDINGS: Lung volumes are symmetric. No focal consolidation is seen. No evidence of pneumothorax, pleural effusion, or pulmonary edema. Cardiac size is within normal limits. Calcification is present at the aortic arch. No acute osseous findings are seen. XR/XR chest 1V IMPRESSION: No acute cardiopulmonary findings.
--- NOTE | 2020-09-03 00:14 | ED_ITS ---
HPI - Chest Pain General Chief Complaint: Chest Pain Stated Complaint: chest pain/right hand numbness Time Seen by Provider: 09/03/20 00:14 Source: patient Mode of arrival: ambulatory Limitations: no limitations History of Present Illness HPI narrative: Patient's history of coronary artery disease status post cardiac catheterization in 2005 showing diffuse LAD disease echo done on 05/09 showed ejection fraction 40-45% global hypokinesis and grade 1 diastolic dysfunction nuclear stress test was negative was admitted to [facility] on 05/09 with the chest pain comes here for similar chest pain started around 21:00 when she was resting in the bed pain feels like pressure going to the left arm , patient took nitroglycerin with partial response no diaphoresis no nausea no vomiting no shortness of breath patient is on baby aspirin, long-acting nitrates and metoprolol Related Data Home Medications Medication Instructions Recorded Confirmed amlodipine 10 mg tablet 10 mg PO DAILY 01/01/20 06/15/20 glipizide 5 mg tablet 5 mg PO BID 01/01/20 06/15/20 lisinopril 20 mg tablet 40 mg PO DAILY 01/01/20 06/15/20 meclizine 12.5 mg tablet 12.5 mg PO BID PRN 01/01/20 06/15/20 sennosides 8.6 mg capsule 17.2 mg PO BEDTIME 01/01/20 06/15/20 sertraline 100 mg tablet 200 mg PO DAILY 01/01/20 06/15/20 topiramate 25 mg tablet 25 mg PO DAILY 01/01/20 06/15/20 pantoprazole 40 mg tablet,delayed 40 mg PO BID 01/27/20 06/15/20 release acetaminophen [Mapap Arthritis 650 mg PO Q8H PRN 05/14/20 06/15/20 Pain] albuterol sulfate 2 puff PO Q4-6H PRN 05/14/20 06/15/20 amitriptyline 0.5 tab PO BEDTIME 05/14/20 06/15/20 cholecalciferol (vitamin D3) 1 tab PO DAILY 05/14/20 06/15/20 clonazepam 0.5 mg PO BID PRN 05/14/20 06/15/20 docusate sodium [DOK] 1 cap PO BID 05/14/20 06/15/20 loratadine 10 mg PO DAILY 05/14/20 06/15/20 methocarbamol 375 mg PO Q12H PRN 05/14/20 06/15/20 tolterodine 2 mg PO DAILY 05/14/20 06/15/20 Previous Rx's Medication Instructions Recorded isosorbide mononitrate 30 mg PO DAILY 30 Days #30 tab 05/15/20 metoprolol succinate [Toprol XL] 25 mg PO DAILY 30 Days #30 tab 05/15/20 nitroglycerin 0.3 mg SUBLINGUAL Q5M PRN #14 tab 05/15/20 Allergies Allergy/AdvReac Type Severity Reaction Status Date / Time prochlorperazine Allergy Severe SEIZURE Verified 06/15/20 11:10 adhesive tape [ADHESIVE TAPE] Allergy Intermediate RASH Verified 06/15/20 11:10 latex [LATEX] Allergy Intermediate RASH Verified 06/15/20 11:10 clarithromycin Allergy Mild RASH Verified 06/15/20 11:10 hydrochlorothiazide Allergy Mild RASH Verified 06/15/20 11:10 metoclopramide [From Reglan] AdvReac Severe SEIZURES Verified 06/15/20 11:10 milk [MILK] AdvReac Intermediate GI UPSET Verified 06/15/20 11:10 ibuprofen AdvReac Unknown unknown Verified 06/15/20 11:10 BIAXIN Allergy Intermediate RASH Uncoded 06/15/20 11:10 Review of Systems Review of Systems: Constitutional : No Weight loss, No Fever, No Chills ENT/Mouth : No sore throat, No Rhinorrhea Eyes: No Eye Pain, No Swelling Cardiovascular : + Chest Pain, no palpitations Respiratory : No Cough, No Sputum, no shortness of breath Gastrointestinal : no Nausea, No Vomiting, No Diarrhea, No abdominal Pain, no black stools Genitourinary : No Dysuria, No Urinary Frequency Musculoskeletal : No joint pain, No Myalgias, No Joint Swelling Skin : No Skin Lesions, No rash Neuro : No Weakness, No Numbness, No Dizziness, No Headache Psych : No Anxiety/Panic, No Depression Heme/Lymph: No Bruising, No Lymphadenopathy Endocrine : No Polyuria, No Polydipsia All other systems reviewed and are negative PMFSH Past Medical History Medical History Anemia Arthritis Atherosclerotic cardiovascular disease CAD (coronary artery disease) Depression Diabetes Essential hypertension HLD (hyperlipidemia) HTN (hypertension) Precordial chest pain Surgical History History of History of esophagogastroduodenoscopy (EGD) History of hysteroscopy Hx of cholecystectomy Hx of colonoscopy Hx of eye surgery Family History Family History Father Colon cancer Myocardial infarction Mother Uterine cancer Social History Social History Alcohol intake: never Second Hand Smoke Exposure: No Advance Directives: No Advance Directives Date on File: 05/14/20 service: No Sexual orientation: Straight/Heterosexual Gender identity: female Physical Exam Vital Signs: Vital Signs: Last Vital Signs Temp 98.4 F 09/03/20 00:38 Pulse 62 09/03/20 00:43 Resp 13 09/03/20 00:38 BP 167/75 H 09/03/20 00:43 Pulse Ox 100 09/03/20 00:38 Body Mass Index 23.1 Appearance: Alert. Oriented X3. No acute distress. Eyes: PERRLA, No Nystagmus ENT: Pharynx normal. Oral Mucosa moist Neck: Normal inspection. Neck supple. CVS: Normal heart rate and rhythm. Pulses normal. Respiratory: No respiratory distress. Equal air entry bilateral, no wheezing/rales/rhonchi Abdomen: Soft and nontender. Bowel sounds are present, no mass palpable, no CVA tenderness Skin: Skin warm and dry. Normal skin color. Normal skin turgor. Extremities: No lower extremity edema. No calf tenderness Neuro: Oriented X 3. No motor deficit. No sensory deficit.No cerebellar signs , cranial nerves II-XII intact MDM - Chest Pain MDM Narrative Medical decision making narrative: Patient has significant coronary disease came with chest pain EKG without any significant acute change patient has chronic renal disease creatinine was 1.6 has chronically elevated troponin and today was 19.8 also noticed that patient's potassium was 2.9 magnesium 1.3 , will replace. at this time patient complaining of regular chest pain and headache but sleeping. Will admit patient for ACS and hypokalemia give her a dose of Lovenox Medical Records Data Attestation: I reviewed the patient's medical records. Lab Data Attestation: I reviewed the patient's lab results. Result diagrams: 09/03/20 00:34 09/03/20 00:34 Labs: Lab Results 09/03/20 09/03/20 09/03/20 Range/Units 00:34 00:34 00:34 WBC 7.4 (4.8-10.8) X10*3/uL RBC 3.24 L (4.20-5.50) X10*6/uL Hgb 9.5 L (12.0-16.0) g/dl Hct 27.8 L (37-47) % MCV 85.8 (80-98) fL MCH 29.3 (27.0-33.0) pg MCHC 34.2 (31.0-35.0) g/dl RDW 12.8 (11.0-16.0) % Plt Count 195 (160-400) X10*3/uL MPV 11.8 (9.4-12.3) fL Immature Gran % (Auto) 0.1 (0.0-0.4) % Neut % (Auto) 47.4 (45-73) % Lymph % (Auto) 43.6 H (20-40) % [place] % (Auto) 7.8 (2-11) % Eos % (Auto) 0.8 (0-4) % Baso % (Auto) 0.3 (0-2) % Lymph # (Auto) 3.2 (1.2-4.9) X10*3/uL [place] # (Auto) 0.6 (0.1-1.2) X10*3/uL Eos # (Auto) 0.1 (0.0-0.4) X10*3/uL Baso # (Auto) 0.0 (0.0-0.2) X10*3/uL Abs Immat Gran (auto) 0.01 (0.00-0.03) X10*3/uL Absolute Neuts (auto) 3.5 (2.0-8.3) X10*3/uL Absolute Nucleated RBC 0.000 (0.0-0.012) X10*3/uL Nucleated RBC % (auto) 0.0 (0.0-0.2) /100WBC PT (9.9-13.0) SEC INR (0.9-1.1) APTT (24.1-38.0) SEC Sodium 140 (135-145) mmol/L Potassium 2.9 L D (3.3-5.1) mmol/L Chloride 107 (96-108) mmol/L Carbon Dioxide 24 (22-29) mmol/L Anion Gap 12 (12-20) BUN 21 H (9-16) mg/dL Creatinine 1.66 H (0.5-1.4) mg/dL Estim Creat Clear Calc 23.0 Estimated GFR 30 Random Glucose 150 H D (60-115) mg/dL Calcium 8.8 D (8.4-10.2) mg/dL Magnesium 1.3 L* (1.6-2.6) mg/dL Total Bilirubin 0.5 (0.0-1.0) mg/dL AST 22 (5-31) U/L ALT 15 (0-31) U/L Alkaline Phosphatase 126 H (39-117) U/L Troponin I High Sens 19.8 H* (<3.5-17.0) ng/L Total Protein 6.3 L (6.5-8.0) g/dL Albumin 3.5 (3.5-5.0) g/dL 09/03/20 Range/Units 00:34 WBC (4.8-10.8) X10*3/uL RBC (4.20-5.50) X10*6/uL Hgb (12.0-16.0) g/dl Hct (37-47) % MCV (80-98) fL MCH (27.0-33.0) pg MCHC (31.0-35.0) g/dl RDW (11.0-16.0) % Plt Count (160-400) X10*3/uL MPV (9.4-12.3) fL Immature Gran % (Auto) (0.0-0.4) % Neut % (Auto) (45-73) % Lymph % (Auto) (20-40) % [place] % (Auto) (2-11) % Eos % (Auto) (0-4) % Baso % (Auto) (0-2) % Lymph # (Auto) (1.2-4.9) X10*3/uL [place] # (Auto) (0.1-1.2) X10*3/uL Eos # (Auto) (0.0-0.4) X10*3/uL Baso # (Auto) (0.0-0.2) X10*3/uL Abs Immat Gran (auto) (0.00-0.03) X10*3/uL Absolute Neuts (auto) (2.0-8.3) X10*3/uL Absolute Nucleated RBC (0.0-0.012) X10*3/uL Nucleated RBC % (auto) (0.0-0.2) /100WBC PT 12.8 (9.9-13.0) SEC INR 1.1 (0.9-1.1) APTT 33.5 (24.1-38.0) SEC Sodium (135-145) mmol/L Potassium (3.3-5.1) mmol/L Chloride (96-108) mmol/L Carbon Dioxide (22-29) mmol/L Anion Gap (12-20) BUN (9-16) mg/dL Creatinine (0.5-1.4) mg/dL Estim Creat Clear Calc Estimated GFR Random Glucose (60-115) mg/dL Calcium (8.4-10.2) mg/dL Magnesium (1.6-2.6) mg/dL Total Bilirubin (0.0-1.0) mg/dL AST (5-31) U/L ALT (0-31) U/L Alkaline Phosphatase (39-117) U/L Troponin I High Sens (<3.5-17.0) ng/L Total Protein (6.5-8.0) g/dL Albumin (3.5-5.0) g/dL ECG Data ECG #1: Attestation: I personally reviewed and interpreted this ECG as follows: Interpretation: Normal sinus rhythm heart rate 71 beats per minute right bundle-branch block frequent PVCs unifocal no acute ST T wave changes no acute change from previous EKG in 05/09 Critical Care Time Critical Care Time Critical Care Time: Yes Total Critical Care Time: 35 Attestation: I spent 35 minutes of critical care, with interventions, assessments, speaking to patient, and family. Discharge Plan Discharge Clinical Impression: ACS (acute coronary syndrome), Acute hypokalemia, Hypomagnesemia CKD (chronic kidney disease) Qualifiers: Chronic kidney disease stage: stage 4 (severe) Qualified Code(s): N18.4 - Chronic kidney disease, stage 4 (severe) Patient Disposition: Admitted As Inpatient
[2020-09-03 00:38] LABS: Basophils Percent Auto 0.3 % (0-2); Eosinophils Absolute Auto 0.1 X10*3/uL (0.0-0.4); Eosinophils Percent Auto 0.8 % (0-4); Hematocrit 27.8 % (37-47); Hemoglobin 9.5 g/dl (12.0-16.0); Imm Gran Abs Auto 0.01 X10*3/uL (0.00-0.03); Imm Gran Pct Auto 0.1 % (0.0-0.4); Lymphocytes Absolute Auto 3.2 X10*3/uL (1.2-4.9); Lymphocytes Percent Auto 43.6 % (20-40); MANUAL DIFF FLAG NO; Mean Corpuscular HGB Conc 34.2 g/dl (31.0-35.0); Mean Corpuscular Hemoglobin 29.3 pg (27.0-33.0); Mean Corpuscular Volume 85.8 fL (80-98); Mean Platelet Volume 11.8 fL (9.4-12.3); Monocytes Absolute Auto 0.6 X10*3/uL (0.1-1.2); Monocytes Percent Auto 7.8 % (2-11); Neutrophils Absolute Auto 3.5 X10*3/uL (2.0-8.3); Neutrophils Percent Auto 47.4 % (45-73); Platelet Count 195 X10*3/uL (160-400); Red Blood Count 3.24 X10*6/uL (4.20-5.50); Red Cell Distribution Width 12.8 % (11.0-16.0); White Blood Count 7.4 X10*3/uL (4.8-10.8)
[2020-09-03 00:43] LABS: INTERNATIONAL NORM RATIO 1.1 (0.9-1.1); Prothrombin Time 12.8 SEC (9.9-13.0)
[2020-09-03] MEDS: Nitroglycerin 2 % Oint 1 GM Packet 1 INCH TRANSDERMA (00:43)
[2020-09-03 00:46] LABS: Partial Thromboplastin Time 33.5 SEC (24.1-38.0)
[2020-09-03 01:08] LABS: Alanine Aminotransferase 15 U/L (0-31); Albumin Level 3.5 g/dL (3.5-5.0); Alkaline Phosphatase 126 U/L (39-117); Anion Gap 12 (12-20); Aspartate Amino Transferase 22 U/L (5-31); Bilirubin Total 0.5 mg/dL (0.0-1.0); Blood Urea Nitrogen 21 mg/dL (9-16); Calcium 8.8 mg/dL (8.4-10.2); Carbon Dioxide 24 mmol/L (22-29); Chloride 107 mmol/L (96-108); Estimated Glomerular Filt Rate 30; Glucose Random 150 mg/dL (60-115); Potassium 2.9 mmol/L (3.3-5.1); Sodium 140 mmol/L (135-145); Total Protein 6.3 g/dL (6.5-8.0); Troponin-I High Sensitivity 19.8 ng/L (<3.5-17.0)
[2020-09-03 01:57] LABS: Magnesium 1.3 mg/dL (1.6-2.6)
[2020-09-03] MEDS: Magnesium Sulfate/H2O 2 GM/50 ML PIGGYBACK IV (02:09)
[2020-09-03] MEDS: Acetaminophen 325 MG TABLET 650 MG PO (02:09)
[2020-09-03] MEDS: Enoxaparin Sodium 60 MG/0.6 ML SYRINGE SUBCUT (02:52)
[2020-09-03] MEDS: Potassium Chloride/H20 10 MEQ/100 ML PIGGYBACK 100 MEQ IV ×2 (02:53→03:58)
[2020-09-03 03:37] LABS: COVID-19 Test Negative (Negative); IDNOW Serial# 9DD0AD1C
[2020-09-03 04:49] LABS: Troponin-I High Sensitivity 18.4 ng/L (<3.5-17.0)
--- NOTE | 2020-09-03 05:33 | P.HPHOSP_ITS ---
History of Present Illness Date of Service: 09/03/20 Chief Complaint: chest pain 80-year-old female with past medical history of CAD, depression, diabetes, hypertension, anemia, arthritis who presents to the hospital with complaints of chest pain. Patient reports that she was sleeping and woke her up from sleep. Pain is midsternal, radiating to the left arm, pressure, 9/10, associated with some nausea with no vomiting. She denies any shortness of breath, no abdominal pain, no diarrhea, no urinary symptoms. No headache no change in vision,. No lower extremity edema. In April for the same, at that time she underwent myocardial perfusion imaging which showed no ischemia but possible nontransmural infarct in the distal anterior wall/apex and she was recommended to follow up outpatient with Cardiology. Patient does not appear to have followed up with Cardiology. At that visit patient was also started on Toprol-XL and Imdur as well as sublingual glycerin for p.r.n. chest pain Patient hemodynamically stable with no significant abnormal vitals Labs are significant for WBC count of 7.4, hemoglobin of 9.5 which is around his baseline, potassium of 2.9, BUN 21, creatinine of 1.66 which is around her baseline, magnesium of 1.3, has test through the troponin of 19.8 with a repeat of 18.4, EKG showed no ST T-wave changes suggestive of ACS, Chest x-ray negative for any acute cardiopulmonary disease Patient will be admitted for observation with consult to Cardiology Review of Systems Review of Systems: Yes all other systems are reviewed and are negative [facility] Medical History Anemia Arthritis Atherosclerotic cardiovascular disease CAD (coronary artery disease) Depression Diabetes Essential hypertension HLD (hyperlipidemia) HTN (hypertension) Precordial chest pain Family History Father Colon cancer Myocardial infarction Mother Uterine cancer Surgical History History of History of esophagogastroduodenoscopy (EGD) History of hysteroscopy Hx of cholecystectomy Hx of colonoscopy Hx of eye surgery Social History Alcohol intake: never Patient Tobacco Use Status: Never used Tobacco Second Hand Smoke Exposure: No Use of substances other than those prescribed or required for medical reasons: No Advance Directives: No Advance Directives Date on File: 05/14/20 service: No Sexual orientation: Straight/Heterosexual Gender identity: female Meds Allergies Allergy/AdvReac Type Severity Reaction Status Date / Time prochlorperazine Allergy Severe SEIZURE Verified 06/15/20 11:10 adhesive tape [ADHESIVE TAPE] Allergy Intermediate RASH Verified 06/15/20 11:10 latex [LATEX] Allergy Intermediate RASH Verified 06/15/20 11:10 clarithromycin Allergy Mild RASH Verified 06/15/20 11:10 hydrochlorothiazide Allergy Mild RASH Verified 06/15/20 11:10 metoclopramide [From Reglan] AdvReac Severe SEIZURES Verified 06/15/20 11:10 milk [MILK] AdvReac Intermediate GI UPSET Verified 06/15/20 11:10 ibuprofen AdvReac Unknown unknown Verified 06/15/20 11:10 BIAXIN Allergy Intermediate RASH Uncoded 06/15/20 11:10 Home Medications Medication Instructions Recorded Confirmed Last Taken Type amlodipine 10 mg tablet 10 mg PO DAILY 01/01/20 09/03/20 Unknown History glipizide 5 mg tablet 10 mg PO BID 01/01/20 09/03/20 Unknown History lisinopril 20 mg tablet 40 mg PO DAILY 01/01/20 09/03/20 Unknown History sennosides 8.6 mg capsule 17.2 mg PO BEDTIME 01/01/20 09/03/20 Unknown History sertraline 100 mg tablet 200 mg PO DAILY 01/01/20 09/03/20 Unknown History pantoprazole 40 mg tablet,delayed 40 mg PO BID 01/27/20 09/03/20 Unknown History release acetaminophen [Mapap Arthritis 650 mg PO Q8H PRN 05/14/20 09/03/20 Unknown History Pain] cholecalciferol (vitamin D3) 1 tab PO DAILY 05/14/20 09/03/20 Unknown History clonazepam 0.5 mg PO BID PRN 05/14/20 09/03/20 Unknown History docusate sodium [DOK] 1 cap PO BID 05/14/20 09/03/20 Unknown History methocarbamol 375 mg PO Q12H PRN 05/14/20 09/03/20 Unknown History tolterodine 2 mg PO DAILY 05/14/20 09/03/20 Unknown History Physical Exam Vital Signs and Narrative: Vital Signs: Last Vital Signs Temp 98.4 F 09/03/20 00:38 Pulse 62 09/03/20 04:00 Resp 16 09/03/20 04:00 BP 128/61 09/03/20 02:45 Pulse Ox 97 09/03/20 02:45 Body Mass Index 23.1 Results Labs CBC and Chem 7: 09/03/20 00:34 09/03/20 00:34 Labs: Laboratory Results - last 24 hr 09/03/20 09/03/20 09/03/20 00:34 00:34 00:34 MCV 85.8 MCH 29.3 MCHC 34.2 RDW 12.8 Plt Count 195 MPV 11.8 Immature Gran % (Auto) 0.1 Neut % (Auto) 47.4 Lymph % (Auto) 43.6 H [place] % (Auto) 7.8 Eos % (Auto) 0.8 Baso % (Auto) 0.3 Lymph # (Auto) 3.2 [place] # (Auto) 0.6 Eos # (Auto) 0.1 Baso # (Auto) 0.0 Abs Immat Gran (auto) 0.01 Absolute Neuts (auto) 3.5 Absolute Nucleated RBC 0.000 Nucleated RBC % (auto) 0.0 PT INR APTT Anion Gap 12 Estim Creat Clear Calc 23.0 Estimated GFR 30 Random Glucose 150 H D Calcium 8.8 D Magnesium 1.3 L* Total Bilirubin 0.5 AST 22 ALT 15 Alkaline Phosphatase 126 H Troponin I High Sens 19.8 H* Total Protein 6.3 L Albumin 3.5 COVID-19 ([facility]) COVID-19 Clin Com 09/03/20 09/03/20 09/03/20 00:34 03:16 04:15 MCV MCH MCHC RDW Plt Count MPV Immature Gran % (Auto) Neut % (Auto) Lymph % (Auto) [place] % (Auto) Eos % (Auto) Baso % (Auto) Lymph # (Auto) [place] # (Auto) Eos # (Auto) Baso # (Auto) Abs Immat Gran (auto) Absolute Neuts (auto) Absolute Nucleated RBC Nucleated RBC % (auto) PT 12.8 INR 1.1 APTT 33.5 Anion Gap Estim Creat Clear Calc Estimated GFR Random Glucose Calcium Magnesium Total Bilirubin AST ALT Alkaline Phosphatase Troponin I High Sens 18.4 H* Total Protein Albumin COVID-19 ([facility]) Negative COVID-19 Clin Com See Note Imaging Radiologist's Impressions: Impressions Chest X-Ray 09/03/20 00:29 IMPRESSION: No acute cardiopulmonary findings. Assessment and Plan (1) Acute hypokalemia: Status: Acute (2) Hypomagnesemia: Status: Acute (3) Chest pain: Status: Acute 80-year-old female with past medical history of coronary artery disease presents to the hospital with complaints of chest pain # chest pain - typical symptoms -recent admission in April patient underwent nuclear perfusion study who which showed no ischemia but possible nontransmural infarct in the distal anterior wall/apex versus artifact and she was recommended to follow up outpatient with Cardiology - she did not follow-up outpatient with Cardiology - troponin trended up to 19.8 with no delta - EKG shows no significant ST T wave changes suggestive of ACS - patient will be admitted for observation with consult to Cardiology - continue Imdur, Toprol-XL, p.r.n. p.r.n. sublingual glycerin # hypokalemia - repleted - follow BMP # hypomagnesemia - repleted - follow Mag level # diabetes - hold glipizide - will start her on diabetic diet, low-dose sliding scale insulin # hypertension - continue lisinopril, Imdur and amlodipine DVT prophylaxis: Early ambulation Quality Stroke Does the patient have a stroke diagnosis?: No VTE Prior VTE?: No VTE Risk Level:: Medical - low VTE Device Contraindication: Treatment Not Indicated VTE Drug Contraindication: Treatment Not Indicated
[2020-09-03 07:33] LABS: Glucose, Whole Blood 170 mg/dL (60-115)
[2020-09-03 07:58] LABS: Anion Gap 14 (12-20); Blood Urea Nitrogen 19 mg/dL (9-16); Calcium 9.2 mg/dL (8.4-10.2); Carbon Dioxide 23 mmol/L (22-29); Chloride 107 mmol/L (96-108); Creatinine Clr Calc Pharmacy 24.4; Estimated Glomerular Filt Rate 32; Glucose Random 167 mg/dL (60-115); Potassium 3.3 mmol/L (3.3-5.1); Sodium 141 mmol/L (135-145)
[2020-09-03] MEDS: Sertraline HCL 100 MG TABLET 200 MG PO (08:54)
[2020-09-03] MEDS: amLODIPine Besylate 10 MG TABLET PO (08:55)
[2020-09-03] MEDS: Tolterodine Tartrate LA 2 MG CAP.ER.24H PO (08:55)
[2020-09-03] MEDS: Metoprolol Succinate ER 25 MG TAB.ER.24H PO (08:55)
[2020-09-03] MEDS: Isosorbide Mononitrate 30 MG TAB.ER.24H PO ×2 (08:56→11:55)
[2020-09-03] MEDS: Docusate Sodium 100 MG CAPSULE PO ×2 (08:56→21:01)
[2020-09-03] MEDS: Insulin Lispro 100 UNIT/ML 3 ML VIAL SUBCUT ×3 (08:56→21:01)
[2020-09-03] MEDS: lisinopriL 40 MG TABLET PO (08:56)
[2020-09-03] MEDS: 0.9 % Sodium Chloride Flush 3 ML SYRINGE IVFLUSH ×3 (09:00→21:01)
--- NOTE | 2020-09-03 11:28 | P.CONCA_ITS ---
History of Present Illness History of Present Illness Date of Service: 09/03/20 Requesting physician: Trudy Burkett Chief complaint: chest pain/right hand numbness Narrative: 80-year-old female with background history of coronary artery disease with cardiac catheterization done in 2005. I reviewed the films and she had diffuse LAD disease with severe diagonal stenosis. Right coronary artery was not dominant and had moderate to severe stenosis. She presented to us in April 2020 with chest discomfort. At that time echocardiography has shown EF of 40 45%. Testing at that time she was able to exercise for 5.8 Mets and no ischemic EKG changes were noticed. Showed no ischemia but a mild defect the distal part of anterior wall and apex were seen which were thought to be either infarct or an artifact. TID was noticed with a TID ratio 1.32. She is saying she follows up at [facility] for [facility]iology. She is now presenting again with chest discomfort. She said her blood pressure was elevated and she developed chest pressure along with left arm tingling. These symptoms persisted and she decided to come to the emergency department. In the ER she was given nitroglycerin and her symptoms improved. She since then she has been pain-free. She is saying when she walks she gets out of breath but does not get chest discomfort generally. She is saying that she was told before that she had a heart attack but reviewing her films at [facility] she did not have any occluded arteries but did had diffuse disease in the LAD, diagonal and right coronary artery. No previous revascularization was done. EKG reviewed showing sinus rhythm with premature ventricular complexes, nonspecific T-wave changes, right bundle-branch block, QTC of 517 milliseconds. Review of Systems Review of Systems: Is symptomatic right now. No chest pain. Yes all other systems are reviewed and are negative [facility] Past Medical History Medical History Anemia Arthritis Atherosclerotic cardiovascular disease CAD (coronary artery disease) Depression Diabetes Essential hypertension HLD (hyperlipidemia) HTN (hypertension) Precordial chest pain Family History Family History Father Colon cancer Myocardial infarction Mother Uterine cancer Surgical History Surgical History History of History of esophagogastroduodenoscopy (EGD) History of hysteroscopy Hx of cholecystectomy Hx of colonoscopy Hx of eye surgery Social History Social History Alcohol intake: never Patient Tobacco Use Status: Never used Tobacco Second Hand Smoke Exposure: No Use of substances other than those prescribed or required for medical reasons: No Advance Directives: No Advance Directives Date on File: 05/14/20 service: No Sexual orientation: Straight/Heterosexual Gender identity: female Meds Allergies Allergy/AdvReac Type Severity Reaction Status Date / Time prochlorperazine Allergy Severe SEIZURE Verified 06/15/20 11:10 adhesive tape [ADHESIVE TAPE] Allergy Intermediate RASH Verified 06/15/20 11:10 latex [LATEX] Allergy Intermediate RASH Verified 06/15/20 11:10 clarithromycin Allergy Mild RASH Verified 06/15/20 11:10 hydrochlorothiazide Allergy Mild RASH Verified 06/15/20 11:10 metoclopramide [From Reglan] AdvReac Severe SEIZURES Verified 06/15/20 11:10 milk [MILK] AdvReac Intermediate GI UPSET Verified 06/15/20 11:10 ibuprofen AdvReac Unknown unknown Verified 06/15/20 11:10 BIAXIN Allergy Intermediate RASH Uncoded 06/15/20 11:10 Active Medications: Current Medications Generic Name Dose Route Start Last Admin Trade Name Freq PRN Reason Stop Dose Admin Acetaminophen 650 mg 09/03/20 06:26 Acetaminophen 325 Mg Tablet PO Q6H PRN Pain, Mild (Pain Scale 1-3) Amlodipine Besylate 10 mg 09/03/20 09:00 09/03/20 08:55 Amlodipine Besylate 10 Mg Tablet PO 10 mg DAILY [facility] Administration Protocol Clonazepam 0.5 mg 09/03/20 06:26 Clonazepam 0.5 Mg Tablet PO BID PRN Anxiety Clopidogrel Bisulfate 75 mg 09/04/20 09:00 Clopidogrel Bisulfate 75 Mg Tablet PO DAILY [facility] Cyclobenzaprine HCl 10 mg 09/03/20 06:43 Cyclobenzaprine Hcl 10 Mg Tablet PO BID PRN SPASMS Docusate Sodium 100 mg 09/03/20 09:00 09/03/20 08:56 Docusate Sodium 100 Mg Capsule PO 100 mg BID [facility] Administration Enoxaparin Sodium 60 mg 09/04/20 09:00 Enoxaparin Sodium 60 Mg/0.6 Ml Syringe SUBCUT DAILY [facility] Insulin Human Lispro 0 unit 09/03/20 07:30 09/03/20 08:56 Insulin Lispro 100 Unit/Ml 3 Ml Vial SUBCUT 2 unit QIDACHS [facility] Administration Protocol Lisinopril 40 mg 09/03/20 09:00 09/03/20 08:56 Lisinopril 40 Mg Tablet PO 40 mg DAILY [facility] Administration Protocol Metoprolol Succinate 25 mg 09/03/20 09:00 09/03/20 08:55 Metoprolol Succinate Er 25 Mg Tab.Er.24h PO 25 mg DAILY [facility] Administration Protocol Nitroglycerin 0.4 mg 09/03/20 06:40 Nitroglycerin 0.4 Mg Tab.Subl SUBLINGUAL Q5M PRN chest pain Omeprazole 20 mg 09/03/20 16:30 Omeprazole 20 Mg Capsule.Dr PO BID@6130,9280 [facility] Ondansetron HCl 4 mg 09/03/20 06:26 Ondansetron Hcl 4 Mg/2 Ml Vial IVPUSH Q8H PRN Nausea and Vomiting Sertraline HCl 200 mg 09/03/20 09:00 09/03/20 08:54 Sertraline Hcl 100 Mg Tablet PO 200 mg DAILY [facility] Administration Sodium Chloride 3 ml 09/03/20 08:00 09/03/20 09:00 0.9 % Sodium Chloride Flush 3 Ml Syringe IVFLUSH 3 ml QSHIFT [facility] Administration Tolterodine Tartrate 2 mg 09/03/20 09:00 09/03/20 08:55 Tolterodine Tartrate La 2 Mg Cap.Er.24h PO 2 mg DAILY [facility] Administration Home Medications Medication Instructions Recorded Confirmed Last Taken Type amlodipine 10 mg tablet 10 mg PO DAILY 01/01/20 09/03/20 Unknown History glipizide 5 mg tablet 10 mg PO BID 01/01/20 09/03/20 Unknown History lisinopril 20 mg tablet 40 mg PO DAILY 01/01/20 09/03/20 Unknown History sennosides 8.6 mg capsule 17.2 mg PO BEDTIME 01/01/20 09/03/20 Unknown History sertraline 100 mg tablet 200 mg PO DAILY 01/01/20 09/03/20 Unknown History pantoprazole 40 mg tablet,delayed 40 mg PO BID 01/27/20 09/03/20 Unknown History release acetaminophen [Mapap Arthritis 650 mg PO Q8H PRN 05/14/20 09/03/20 Unknown History Pain] cholecalciferol (vitamin D3) 1 tab PO DAILY 05/14/20 09/03/20 Unknown History clonazepam 0.5 mg PO BID PRN 05/14/20 09/03/20 Unknown History docusate sodium [DOK] 1 cap PO BID 05/14/20 09/03/20 Unknown History methocarbamol 375 mg PO Q12H PRN 05/14/20 09/03/20 Unknown History tolterodine 2 mg PO DAILY 05/14/20 09/03/20 Unknown History Physical Exam Vital Signs: Vital Signs: Last Vital Signs Temp 97.0 F 09/03/20 11:00 Pulse 32 L 09/03/20 11:00 Resp 17 09/03/20 11:00 BP 165/90 H 09/03/20 11:00 Pulse Ox 99 09/03/20 11:00 Body Mass Index 23.1 GENERAL APPEARANCE: in no acute distress, pleasant. NECK: no carotid bruit, no jugular venous distention. SKIN: no suspicious lesions, warm and dry. HEART: no murmurs, regular rate and rhythm. LUNGS: clear to auscultation bilaterally. ABDOMEN: soft, nontender. EXTREMITIES: no edema. PERIPHERAL PULSES: equal. NEUROLOGIC: No gross deficits, AAO X 3 Results Labs and Meds Result diagrams: 09/03/20 00:34 09/03/20 07:24 Lab results: Laboratory Results - last 24 hr 09/03/20 09/03/20 09/03/20 00:34 00:34 00:34 WBC 7.4 RBC 3.24 L Hgb 9.5 L Hct 27.8 L MCV 85.8 MCH 29.3 MCHC 34.2 RDW 12.8 Plt Count 195 MPV 11.8 Immature Gran % (Auto) 0.1 Neut % (Auto) 47.4 Lymph % (Auto) 43.6 H [place] % (Auto) 7.8 Eos % (Auto) 0.8 Baso % (Auto) 0.3 Lymph # (Auto) 3.2 [place] # (Auto) 0.6 Eos # (Auto) 0.1 Baso # (Auto) 0.0 Abs Immat Gran (auto) 0.01 Absolute Neuts (auto) 3.5 Absolute Nucleated RBC 0.000 Nucleated RBC % (auto) 0.0 PT INR APTT Sodium 140 Potassium 2.9 L D Chloride 107 Carbon Dioxide 24 Anion Gap 12 BUN 21 H Creatinine 1.66 H Estim Creat Clear Calc 23.0 Estimated GFR 30 POC Glucose Random Glucose 150 H D Calcium 8.8 D Magnesium 1.3 L* Total Bilirubin 0.5 AST 22 ALT 15 Alkaline Phosphatase 126 H Troponin I High Sens 19.8 H* Total Protein 6.3 L Albumin 3.5 COVID-19 ([facility]) COVID-19 Clin Com 09/03/20 09/03/20 09/03/20 00:34 03:16 04:15 WBC RBC Hgb Hct MCV MCH MCHC RDW Plt Count MPV Immature Gran % (Auto) Neut % (Auto) Lymph % (Auto) [place] % (Auto) Eos % (Auto) Baso % (Auto) Lymph # (Auto) [place] # (Auto) Eos # (Auto) Baso # (Auto) Abs Immat Gran (auto) Absolute Neuts (auto) Absolute Nucleated RBC Nucleated RBC % (auto) PT 12.8 INR 1.1 APTT 33.5 Sodium Potassium Chloride Carbon Dioxide Anion Gap BUN Creatinine Estim Creat Clear Calc Estimated GFR POC Glucose Random Glucose Calcium Magnesium Total Bilirubin AST ALT Alkaline Phosphatase Troponin I High Sens 18.4 H* Total Protein Albumin COVID-19 ([facility]E) Negative COVID-19 [facility] Com See Note 09/03/20 09/03/20 07:22 07:24 WBC RBC Hgb Hct MCV MCH MCHC RDW Plt Count MPV Immature Gran % (Auto) Neut % (Auto) Lymph % (Auto) [place] % (Auto) Eos % (Auto) Baso % (Auto) Lymph # (Auto) [place] # (Auto) Eos # (Auto) Baso # (Auto) Abs Immat Gran (auto) Absolute Neuts (auto) Absolute Nucleated RBC Nucleated RBC % (auto) PT INR APTT Sodium 141 Potassium 3.3 Chloride 107 Carbon Dioxide 23 Anion Gap 14 BUN 19 H Creatinine 1.57 H Estim Creat Clear Calc 24.4 Estimated GFR 32 POC Glucose 170 H Random Glucose 167 H Calcium 9.2 Magnesium 2.0 Total Bilirubin AST ALT Alkaline Phosphatase Troponin I High Sens Total Protein Albumin COVID-19 ([facility]E) COVID-19 Clin Com Imaging Radiologist's impression: Impressions Chest X-Ray 09/03/20 00:29 IMPRESSION: No acute cardiopulmonary findings. Assessment and Plan (1) Essential hypertension: Status: Acute (2) Chest pain: Status: Acute (3) ACS (acute coronary syndrome): Status: Acute Pleasant 80-year-old female who is presenting for chest pain in setting of elevated blood pressure. She has known coronary artery disease based on cardiac catheterization done in 2005. Recent echocardiography in April showed EF of 40 45%. She also has stress testing done which showed apical perfusion defe ct versus artifact but she had transient ischemic dilatation. Her blood pressure is elevated and it needs better control. I am increasing the Imdur to 60 mg once a day. Continue the amlodipine 10 mg along with the lisinopril 40 mg and Toprol-XL. I have discussed with her about potential cardiac catheterization at [facility] but she does not want to be transferred right now. I think she should be treated as acute coronary syndrome. I think she has multivessel disease at this point given TID on the nuclear stress test and diffuse disease in the LAD, diagonal and RCA previously. I will load her with Plavix 300 mg once a day and she should continue 75 mg of Plavix along with aspirin going forward. She should be treated for 48 hours with enoxaparin. 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 Currently she does not want to be transferred. QTC is prolonged. Please check for interactions before adding any new medications. Thank you for allowing me to participate in the care of your patient. Please feel free to contact me if you have any questions. Procedures Date of Service Date of Service: 09/03/20
[2020-09-03 11:35] LABS: Glucose, Whole Blood 215 mg/dL (60-115)
[2020-09-03] MEDS: Clopidogrel Bisulfate 300 MG TABLET PO (11:55)
[2020-09-03 16:31] LABS: Glucose, Whole Blood 102 mg/dL (60-115)
[2020-09-03] MEDS: Omeprazole 20 MG CAPSULE.DR PO (16:38)
[2020-09-03 20:21] LABS: Glucose, Whole Blood 312 mg/dL (60-115)
[2020-09-03] MEDS: clonazePAM 0.5 MG TABLET PO (21:01)
[2020-09-04] VITALS (11 sets, daily range): BP systolic 106–139; BP diastolic 51–82; PULSE 52–83; RESP 15–18; TEMP 35.9–36.9; O2SAT 98–100
[2020-09-04] MEDS: Omeprazole 20 MG CAPSULE.DR PO ×2 (05:54→16:49)
[2020-09-04 05:58] LABS: MANUAL DIFF FLAG NO
[2020-09-04 06:29] LABS: Basophils Percent Auto 0.5 % (0-2); Eosinophils Absolute Auto 0.1 X10*3/uL (0.0-0.4); Hematocrit 25.3 % (37-47); Hemoglobin 8.5 g/dl (12.0-16.0); Imm Gran Abs Auto 0.02 X10*3/uL (0.00-0.03); Imm Gran Pct Auto 0.3 % (0.0-0.4); Lymphocytes Absolute Auto 1.9 X10*3/uL (1.2-4.9); Lymphocytes Percent Auto 30.6 % (20-40); Mean Corpuscular HGB Conc 33.6 g/dl (31.0-35.0); Mean Corpuscular Volume 86.3 fL (80-98); Mean Platelet Volume 12.1 fL (9.4-12.3); Monocytes Absolute Auto 0.5 X10*3/uL (0.1-1.2); Monocytes Percent Auto 8.4 % (2-11); Neutrophils Absolute Auto 3.7 X10*3/uL (2.0-8.3); Neutrophils Percent Auto 59.2 % (45-73); Platelet Count 180 X10*3/uL (160-400); Red Blood Count 2.93 X10*6/uL (4.20-5.50); Red Cell Distribution Width 12.7 % (11.0-16.0); White Blood Count 6.2 X10*3/uL (4.8-10.8)
[2020-09-04 06:45] LABS: Anion Gap 13 (12-20); Blood Urea Nitrogen 21 mg/dL (9-16); Calcium 8.3 mg/dL (8.4-10.2); Carbon Dioxide 22 mmol/L (22-29); Chloride 110 mmol/L (96-108); Creatinine Clr Calc Pharmacy 25.8; Estimated Glomerular Filt Rate 34; Glucose Random 101 mg/dL (60-115); Sodium 142 mmol/L (135-145)
[2020-09-04 07:28] LABS: Glucose, Whole Blood 120 mg/dL (60-115)
[2020-09-04] MEDS: Potassium Chloride Packet 20 MEQ PACKET 40 MEQ PO (08:11)
[2020-09-04] MEDS: amLODIPine Besylate 10 MG TABLET PO (08:12)
[2020-09-04] MEDS: Docusate Sodium 100 MG CAPSULE PO ×2 (08:12→20:29)
[2020-09-04] MEDS: Isosorbide Mononitrate 60 MG TAB.ER.24H PO (08:12)
[2020-09-04] MEDS: Tolterodine Tartrate LA 2 MG CAP.ER.24H PO (08:12)
[2020-09-04] MEDS: Sertraline HCL 100 MG TABLET 200 MG PO (08:12)
[2020-09-04] MEDS: Metoprolol Succinate ER 25 MG TAB.ER.24H PO (08:12)
[2020-09-04] MEDS: Clopidogrel Bisulfate 75 MG TABLET PO (08:12)
[2020-09-04] MEDS: Enoxaparin Sodium 60 MG/0.6 ML SYRINGE SUBCUT (08:13)
[2020-09-04] MEDS: 0.9 % Sodium Chloride Flush 3 ML SYRINGE IVFLUSH ×3 (08:13→20:31)
[2020-09-04] MEDS: lisinopriL 40 MG TABLET PO (08:13)
--- NOTE | 2020-09-04 09:47 | P.PNCA_ITS ---
Subjective Subjective Date of Service: 09/04/20 Interval history: She has no more chest pain. Saying she has been feeling dizzy. Review of Systems Review of Systems No chest pain Yes all other systems are reviewed and are negative Physical Exam Vital Signs: Last Vital Signs Temp 96.7 F L 09/04/20 07:10 Pulse 69 09/04/20 07:10 Resp 17 09/04/20 07:10 BP 139/61 09/04/20 07:10 Pulse Ox 99 09/04/20 07:10 Body Mass Index 23.1 GENERAL APPEARANCE: in no acute distress, pleasant. NECK: no carotid bruit, no jugular venous distention. SKIN: no suspicious lesions, warm and dry. HEART: no murmurs, regular rate and rhythm. LUNGS: clear to auscultation bilaterally. ABDOMEN: soft, nontender. EXTREMITIES: no edema. PERIPHERAL PULSES: equal. NEUROLOGIC: No gross deficits, AAO X 3 Results Labs and Meds Result diagrams: 09/04/20 05:50 09/04/20 05:50 Lab results: Laboratory Results - last 24 hr 09/03/20 09/03/20 09/03/20 11:29 16:27 20:16 WBC RBC Hgb Hct MCV MCH MCHC RDW Plt Count MPV Immature Gran % (Auto) Neut % (Auto) Lymph % (Auto) [place] % (Auto) Eos % (Auto) Baso % (Auto) Lymph # (Auto) [place] # (Auto) Eos # (Auto) Baso # (Auto) Abs Immat Gran (auto) Absolute Neuts (auto) Absolute Nucleated RBC Nucleated RBC % (auto) Sodium Potassium Chloride Carbon Dioxide Anion Gap BUN Creatinine Estim Creat Clear Calc Estimated GFR POC Glucose 215 H 102 312 H Random Glucose Calcium 09/04/20 09/04/20 09/04/20 05:50 05:50 07:12 WBC 6.2 RBC 2.93 L Hgb 8.5 L Hct 25.3 L MCV 86.3 MCH 29.0 MCHC 33.6 RDW 12.7 Plt Count 180 MPV 12.1 Immature Gran % (Auto) 0.3 Neut % (Auto) 59.2 Lymph % (Auto) 30.6 [place] % (Auto) 8.4 Eos % (Auto) 1.0 Baso % (Auto) 0.5 Lymph # (Auto) 1.9 [place] # (Auto) 0.5 Eos # (Auto) 0.1 Baso # (Auto) 0.0 Abs Immat Gran (auto) 0.02 Absolute Neuts (auto) 3.7 Absolute Nucleated RBC 0.000 Nucleated RBC % (auto) 0.0 Sodium 142 Potassium 3.0 L Chloride 110 H Carbon Dioxide 22 Anion Gap 13 BUN 21 H Creatinine 1.48 H Estim Creat Clear Calc 25.8 Estimated GFR 34 POC Glucose 120 H Random Glucose 101 D Calcium 8.3 L D Progress Note: A&P Assessment and plan (1) ACS (acute coronary syndrome): Status: Acute Assessment and Plan: 80-year-old female who presented for chest discomfort and mildly abnormal troponin levels. She has background is chronic kidney disease and known cardiomyopathy based on echocardiography from April 2020 which showed EF of 40 45%. She had cardiac catheterization in 2005 when she had severe diagonal stenosis as well as somewhat diffuse looking LAD stenosis. She had moderate severe right coronary artery disease at that time. We discussed about cardiac catheterization but she wishes to be medically managed right now. With Lovenox and addition of Plavix her hemoglobin has dropped today to 8.5. She is saying she had no bleeding in her stool or urine. Please repeat a hemoglobin to see if it is not erroneously low. She will follow-up with Dr. Wolf at [facility] and will discuss further management after discharge. Thank you for allowing me to participate in the care of your patient. Please feel free to contact me if you have any questions. Fall Risk Details Current Medications: Current Medications Generic Name Dose Route Start Last Admin Trade Name Freq PRN Reason Stop Dose Admin Acetaminophen 650 mg 09/03/20 06:26 Acetaminophen 325 Mg Tablet PO Q6H PRN Pain, Mild (Pain Scale 1-3) Amlodipine Besylate 10 mg 09/03/20 09:00 09/04/20 08:12 Amlodipine Besylate 10 Mg Tablet PO 10 mg DAILY [facility] Administration Protocol Clonazepam 0.5 mg 09/03/20 06:26 09/03/20 21:01 Clonazepam 0.5 Mg Tablet PO 0.5 mg BID PRN Administration Anxiety Clopidogrel Bisulfate 75 mg 09/04/20 09:00 09/04/20 08:12 Clopidogrel Bisulfate 75 Mg Tablet PO 75 mg DAILY [facility] Administration Cyclobenzaprine HCl 10 mg 09/03/20 06:43 Cyclobenzaprine Hcl 10 Mg Tablet PO BID PRN SPASMS Docusate Sodium 100 mg 09/03/20 09:00 09/04/20 08:12 Docusate Sodium 100 Mg Capsule PO 100 mg BID [facility] Administration Enoxaparin Sodium 60 mg 09/04/20 09:00 09/04/20 08:13 Enoxaparin Sodium 60 Mg/0.6 Ml Syringe SUBCUT 60 mg DAILY [facility] Administration Insulin Human Lispro 0 unit 09/03/20 07:30 09/04/20 07:31 Insulin Lispro 100 Unit/Ml 3 Ml Vial SUBCUT Not Given QIDACHS [facility] Protocol Isosorbide Mononitrate 60 mg 09/04/20 09:00 09/04/20 08:12 Isosorbide Mononitrate 60 Mg Tab.Er.24h PO 60 mg DAILY [facility] Administration Protocol Lisinopril 40 mg 09/03/20 09:00 09/04/20 08:13 Lisinopril 40 Mg Tablet PO 40 mg DAILY [facility] Administration Protocol Metoprolol Succinate 25 mg 09/03/20 09:00 09/04/20 08:12 Metoprolol Succinate Er 25 Mg Tab.Er.24h PO 25 mg DAILY [facility] Administration Protocol Nitroglycerin 0.4 mg 09/03/20 06:40 Nitroglycerin 0.4 Mg Tab.Subl SUBLINGUAL Q5M PRN chest pain Omeprazole 20 mg 09/03/20 16:30 09/04/20 05:54 Omeprazole 20 Mg Capsule.Dr PO 20 mg BID@0630,1630 [facility] Administration Ondansetron HCl 4 mg 09/03/20 06:26 Ondansetron Hcl 4 Mg/2 Ml Vial IVPUSH Q8H PRN Nausea and Vomiting Sertraline HCl 200 mg 09/03/20 09:00 09/04/20 08:12 Sertraline Hcl 100 Mg Tablet PO 200 mg DAILY [facility] Administration Sodium Chloride 3 ml 09/03/20 08:00 09/04/20 08:13 0.9 % Sodium Chloride Flush 3 Ml Syringe IVFLUSH 3 ml QSHIFT [facility] Administration Tolterodine Tartrate 2 mg 09/03/20 09:00 09/04/20 08:12 Tolterodine Tartrate La 2 Mg Cap.Er.24h PO 2 mg DAILY [facility] Administration Time Spent With Patient Time: Total time spent is greater than 50% in coordination of care (as documented) at patient's floor/unit and/or counseling patient: Time with patient: 15 - 24 minutes Progress Note: Quality Stroke Does the patient have a stroke diagnosis?: No Procedures Date of Service Date of Service: 09/04/20
[2020-09-04 11:24] LABS: Glucose, Whole Blood 234 mg/dL (60-115)
[2020-09-04] MEDS: Insulin Lispro 100 UNIT/ML 3 ML VIAL SUBCUT ×3 (11:35→21:23)
[2020-09-04] MEDS: polyethylene glycoL 3350 17 GM POWD.PACK PO (13:55)
--- NOTE | 2020-09-04 13:57 | P.PNIM_ITS ---
Subjective Subjective Date of Service: 09/04/20 Interval History: the patient was seen and evaluated this morning Laying in bed, feels comfortable Complaining of dizziness upon standing up mainly Denies any fever, chills or chest pain events No reported other overnight events. Systemic review: No fever, chills but has some weakness and dizziness No chest pain, palpitation No shortness of breath or coughing No abdominal pain, nausea or vomiting No urinary symptoms No any rash or wounds Physical Exam Vital Signs: Vital Signs: Last Vital Signs Temp 98.4 F 09/04/20 10:57 Pulse 75 09/04/20 10:57 Resp 16 09/04/20 10:57 BP 118/55 L 09/04/20 10:57 Pulse Ox 98 09/04/20 10:57 Body Mass Index 23.1 Const: Other: Constitutional : Alert, oriented, not in distress Neck : Normal inspection, Supple Cardiovascular : RRR, S1 S2, no lower extremity edema Respiratory : Good bilateral air entry, no crackles, wheezes or rhonchi Gastrointestinal: soft, lax, Normal bowel sounds, Non tender Skin : Warm/Dry, No rash Neurological : Alert & oriented x3, No focal deficit Objective Data Current Medications Generic Name Dose Route Start Last Admin Trade Name Freq PRN Reason Stop Dose Admin Acetaminophen 650 mg 09/03/20 06:26 Acetaminophen 325 Mg Tablet PO Q6H PRN Pain, Mild (Pain Scale 1-3) Amlodipine Besylate 10 mg 09/03/20 09:00 09/04/20 08:12 Amlodipine Besylate 10 Mg Tablet PO 10 mg DAILY [facility] Administration Protocol Clonazepam 0.5 mg 09/03/20 06:26 09/03/20 21:01 Clonazepam 0.5 Mg Tablet PO 0.5 mg BID PRN Administration Anxiety Clopidogrel Bisulfate 75 mg 09/04/20 09:00 09/04/20 08:12 Clopidogrel Bisulfate 75 Mg Tablet PO 75 mg DAILY [facility] Administration Cyclobenzaprine HCl 10 mg 09/03/20 06:43 Cyclobenzaprine Hcl 10 Mg Tablet PO BID PRN SPASMS Docusate Sodium 100 mg 09/03/20 09:00 09/04/20 08:12 Docusate Sodium 100 Mg Capsule PO 100 mg BID [facility] Administration Enoxaparin Sodium 60 mg 09/04/20 09:00 09/04/20 08:13 Enoxaparin Sodium 60 Mg/0.6 Ml Syringe SUBCUT 60 mg DAILY [facility] Administration Insulin Human Lispro 0 unit 09/03/20 07:30 09/04/20 11:35 Insulin Lispro 100 Unit/Ml 3 Ml Vial SUBCUT 4 unit QIDACHS [facility] Administration Protocol Isosorbide Mononitrate 60 mg 09/04/20 09:00 09/04/20 08:12 Isosorbide Mononitrate 60 Mg Tab.Er.24h PO 60 mg DAILY [facility] Administration Protocol Lisinopril 40 mg 09/03/20 09:00 09/04/20 08:13 Lisinopril 40 Mg Tablet PO 40 mg DAILY [facility] Administration Protocol Metoprolol Succinate 25 mg 09/03/20 09:00 09/04/20 08:12 Metoprolol Succinate Er 25 Mg Tab.Er.24h PO 25 mg DAILY [facility] Administration Protocol Nitroglycerin 0.4 mg 09/03/20 06:40 Nitroglycerin 0.4 Mg Tab.Subl SUBLINGUAL Q5M PRN chest pain Omeprazole 20 mg 09/03/20 16:30 09/04/20 05:54 Omeprazole 20 Mg Capsule.Dr PO 20 mg BID@1330,9500 [facility] Administration Ondansetron HCl 4 mg 09/03/20 06:26 Ondansetron Hcl 4 Mg/2 Ml Vial IVPUSH Q8H PRN Nausea and Vomiting Polyethylene Glycol 17 gm 09/04/20 14:00 09/04/20 13:55 Polyethylene Glycol 3350 17 Gm Powd.Pack PO 17 gm DAILY [facility] Administration Sertraline HCl 200 mg 09/03/20 09:00 09/04/20 08:12 Sertraline Hcl 100 Mg Tablet PO 200 mg DAILY [facility] Administration Sodium Chloride 3 ml 09/03/20 08:00 09/04/20 08:13 0.9 % Sodium Chloride Flush 3 Ml Syringe IVFLUSH 3 ml QSHIFT [facility] Administration Tolterodine Tartrate 2 mg 09/03/20 09:00 09/04/20 08:12 Tolterodine Tartrate La 2 Mg Cap.Er.24h PO 2 mg DAILY [facility] Administration Labs CBC & Chem 7: 09/04/20 05:50 09/04/20 05:50 Labs: Laboratory Results - last 24 hr 09/03/20 09/03/20 09/04/20 16:27 20:16 05:50 WBC 6.2 RBC 2.93 L Hgb 8.5 L Hct 25.3 L MCV 86.3 MCH 29.0 MCHC 33.6 RDW 12.7 Plt Count 180 MPV 12.1 Immature Gran % (Auto) 0.3 Neut % (Auto) 59.2 Lymph % (Auto) 30.6 [place] % (Auto) 8.4 Eos % (Auto) 1.0 Baso % (Auto) 0.5 Lymph # (Auto) 1.9 [place] # (Auto) 0.5 Eos # (Auto) 0.1 Baso # (Auto) 0.0 Abs Immat Gran (auto) 0.02 Absolute Neuts (auto) 3.7 Absolute Nucleated RBC 0.000 Nucleated RBC % (auto) 0.0 Sodium Potassium Chloride Carbon Dioxide Anion Gap BUN Creatinine Estim Creat Clear Calc Estimated GFR POC Glucose 102 312 H Random Glucose Calcium 09/04/20 09/04/20 09/04/20 05:50 07:12 11:17 WBC RBC Hgb Hct MCV MCH MCHC RDW Plt Count MPV Immature Gran % (Auto) Neut % (Auto) Lymph % (Auto) [place] % (Auto) Eos % (Auto) Baso % (Auto) Lymph # (Auto) [place] # (Auto) Eos # (Auto) Baso # (Auto) Abs Immat Gran (auto) Absolute Neuts (auto) Absolute Nucleated RBC Nucleated RBC % (auto) Sodium 142 Potassium 3.0 L Chloride 110 H Carbon Dioxide 22 Anion Gap 13 BUN 21 H Creatinine 1.48 H Estim Creat Clear Calc 25.8 Estimated GFR 34 POC Glucose 120 H 234 H Random Glucose 101 D Calcium 8.3 L D Quality Stroke Does the patient have a stroke diagnosis?: No VTE Prior VTE?: No VTE Risk Level:: Medical - low VTE Device Contraindication: Treatment Not Indicated VTE Drug Contraindication: Treatment Not Indicated Assessment and Plan (1) Acute hypokalemia: Status: Acute (2) Hypomagnesemia: Status: Acute (3) Chest pain: Status: Acute Assessment and Plan: 80-year-old female with past medical history of coronary artery disease presents to the hospital with complaints of chest pain # NSTEMI Continue Lovenox full-dose Continue Plavix Continue Imdur, metoprolol Sublingual nitrate Cardiology input appreciated, treat for 48 hours with full-dose Lovenox as the patient refused to go to [facility] for angiogram # dizziness Reported to be upon standing To check orthostatic vitals # hypokalemia Replacement given follow BMP # hypomagnesemia repleted follow Mag level # diabetes hold glipizide diabetic diet low-dose sliding scale insulin # hypertension continue lisinopril, Imdur and amlodipine DVT prophylaxis: Lovenox
[2020-09-04 16:42] LABS: Glucose, Whole Blood 187 mg/dL (60-115)
[2020-09-04] MEDS: clonazePAM 0.5 MG TABLET PO (20:29)
[2020-09-04 20:38] LABS: Glucose, Whole Blood 244 mg/dL (60-115)
[2020-09-05 03:48] VITALS: BP 144/66; PULSE 52; RESP 16; TEMP 36.4; O2SAT 98
[2020-09-05] MEDS: Omeprazole 20 MG CAPSULE.DR PO (06:07)
[2020-09-05 06:52] LABS: Anion Gap 13 (12-20); Blood Urea Nitrogen 22 mg/dL (9-16); Calcium 8.2 mg/dL (8.4-10.2); Carbon Dioxide 21 mmol/L (22-29); Chloride 110 mmol/L (96-108); Creatinine Clr Calc Pharmacy 24.4; Estimated Glomerular Filt Rate 32; Glucose Random 98 mg/dL (60-115); Sodium 141 mmol/L (135-145)
[2020-09-05 07:13] VITALS: BP 126/60; PULSE 69; RESP 16; TEMP 36.1; O2SAT 98
[2020-09-05 07:52] LABS: Glucose, Whole Blood 111 mg/dL (60-115)
[2020-09-05] MEDS: polyethylene glycoL 3350 17 GM POWD.PACK PO (08:34)
[2020-09-05] MEDS: Docusate Sodium 100 MG CAPSULE PO (08:35)
[2020-09-05] MEDS: Clopidogrel Bisulfate 75 MG TABLET PO (08:36)
[2020-09-05] MEDS: Sertraline HCL 100 MG TABLET 200 MG PO (08:36)
[2020-09-05] MEDS: Tolterodine Tartrate LA 2 MG CAP.ER.24H PO (08:36)
[2020-09-05] MEDS: Enoxaparin Sodium 60 MG/0.6 ML SYRINGE SUBCUT (08:38)
[2020-09-05] MEDS: 0.9 % Sodium Chloride Flush 3 ML SYRINGE IVFLUSH (08:39)
[2020-09-05 08:44] VITALS: BP 170/74
[2020-09-05] MEDS: Isosorbide Mononitrate 60 MG TAB.ER.24H PO (08:44)
[2020-09-05 08:45] VITALS: BP 170/74; PULSE 73
[2020-09-05] MEDS: lisinopriL 40 MG TABLET PO (08:45)
[2020-09-05] MEDS: amLODIPine Besylate 5 MG TABLET PO (08:45)
[2020-09-05] MEDS: Metoprolol Succinate ER 25 MG TAB.ER.24H PO (08:45)
[2020-09-05 10:26] VITALS: BP 165/70; PULSE 68; RESP 18; TEMP 36.8; O2SAT 100
[2020-09-05 10:28] LABS: Hematocrit 26.6 % (37-47); Hemoglobin 8.7 g/dl (12.0-16.0); Mean Corpuscular HGB Conc 32.7 g/dl (31.0-35.0); Mean Corpuscular Hemoglobin 28.5 pg (27.0-33.0); Mean Corpuscular Volume 87.2 fL (80-98); Mean Platelet Volume 12.8 fL (9.4-12.3); Platelet Count 189 X10*3/uL (160-400); Red Blood Count 3.05 X10*6/uL (4.20-5.50); Red Cell Distribution Width 13.2 % (11.0-16.0); White Blood Count 5.7 X10*3/uL (4.8-10.8)
--- NOTE | 2020-09-05 11:28 | P.DS_ITS ---
DS: Providers Provider Date of Service: 09/05/20 Date of admission: 09/03/20 11:09 Primary care physician: Unknown Physician Consults: 09/03/20 06:26 Consult to Cardiology Routine Consulting Provider: Valentín Stevenson Reason for consultation: chest pain Has provider been notified: No DS: Diagnosis Discharge Diagnosis (1) Acute hypokalemia: Status: Acute (2) Hypomagnesemia: Status: Acute (3) Chest pain: Status: Acute (4) ACS (acute coronary syndrome): Status: Acute DS: Medications Discharge Medications Home Medications: Home Medications Medication Instructions Recorded Confirmed amlodipine 10 mg tablet 10 mg PO DAILY 01/01/20 09/03/20 glipizide 5 mg tablet 10 mg PO BID 01/01/20 09/03/20 lisinopril 20 mg tablet 40 mg PO DAILY 01/01/20 09/03/20 sennosides 8.6 mg capsule 17.2 mg PO BEDTIME 01/01/20 09/03/20 sertraline 100 mg tablet 200 mg PO DAILY 01/01/20 09/03/20 pantoprazole 40 mg tablet,delayed 40 mg PO BID 01/27/20 09/03/20 release acetaminophen [Mapap Arthritis 650 mg PO Q8H PRN 05/14/20 09/03/20 Pain] cholecalciferol (vitamin D3) 1 tab PO DAILY 05/14/20 09/03/20 clonazepam 0.5 mg PO BID PRN 05/14/20 09/03/20 docusate sodium [DOK] 1 cap PO BID 05/14/20 09/03/20 methocarbamol 375 mg PO Q12H PRN 05/14/20 09/03/20 tolterodine 2 mg PO DAILY 05/14/20 09/03/20 Previous Rx's Medication Instructions Recorded isosorbide mononitrate 30 mg PO DAILY 30 Days #30 tab 05/15/20 metoprolol succinate [Toprol XL] 25 mg PO DAILY 30 Days #30 tab 05/15/20 nitroglycerin 0.3 mg SUBLINGUAL Q5M PRN #14 tab 05/15/20 atorvastatin 40 mg PO BEDTIME #30 tab 09/05/20 clopidogrel 75 mg PO DAILY 30 Days #30 tab 09/05/20 DS: Summary Hospital Course Hospital Course: Admission note HPI 80-year-old female with past medical history of CAD, depression, diabetes, hypertension, anemia, arthritis who presents to the hospital with complaints of chest pain. Patient reports that she was sleeping and woke her up from sleep. Pain is midsternal, radiating to the left arm, pressure, 9/10, associated with some nausea with no vomiting. She denies any shortness of breath, no abdominal pain, no diarrhea, no urinary symptoms. No headache no change in vision,. No lower extremity edema. In April for the same, at that time she underwent myocardial perfusion imaging which showed no ischemia but possible nontransmural infarct in the distal anterior wall/apex and she was recommended to follow up outpatient with Cardiology. Patient does not appear to have followed up with Cardiology. At that visit patient was also started on Toprol-XL and Imdur as well as sublingual glycerin for p.r.n. chest pain Patient hemodynamically stable with no significant abnormal vitals Labs are significant for WBC count of 7.4, hemoglobin of 9.5 which is around his baseline, potassium of 2.9, BUN 21, creatinine of 1.66 which is around her baseline, magnesium of 1.3, has test through the troponin of 19.8 with a repeat of 18.4, EKG showed no ST T-wave changes suggestive of ACS, Chest x-ray negative for any acute cardiopulmonary disease Hospital course The patient was admitted for evaluation of chest pain. Evaluated by Cardiology team who suggest ACS as the reason for her chest pain is recommendation to be transferred to [facility] for angiogram. The patient refused and preferred to stay in the hospital for medical treatment only understanding the risks. She was treated with Plavix and full-dose Lovenox with good response as no recurrence of chest pain happened while in the hospital. Her dizziness completely resolved as well. She was able to ambulate with no reported chest pain or difficulty breathing. Noted to have hypomagnesemia and hypokalemia which both were replete. To be discharged home on Plavix and atorvastatin with plan to follow up with Cardiology as outpatient to arrange for further ischemic workup and possible angiogram. Time Spent with Patient Time attestation: Total time spent providing and/or coordinating discharge services: Discharge coordination time: Greater than 30 minutes Quality: Stroke Does the patient have a stroke diagnosis?: No Physical Exam Vital Signs: Vital Signs: Last Vital Signs Temp 98.2 F 09/05/20 10:26 Pulse 68 09/05/20 10:26 Resp 18 09/05/20 10:26 BP 165/70 H 09/05/20 10:26 Pulse Ox 100 09/05/20 10:26 Body Mass Index 23.1 Const: Other: Constitutional : Alert, oriented, not in distress Neck : Normal inspection, Supple Cardiovascular : RRR, S1 S2, no lower extremity edema Respiratory : Good bilateral air entry, no crackles, wheezes or rhonchi Gastrointestinal: soft, lax, Normal bowel sounds, Non tender Skin : Warm/Dry, No rash Neurological : Alert & oriented x3, No focal deficit DS: Data Data Completed and Pending Labs on day of discharge: Laboratory Results - last 24 hr 09/04/20 09/04/20 09/05/20 16:36 20:33 05:13 WBC RBC Hgb Hct MCV MCH MCHC RDW Plt Count MPV Absolute Nucleated RBC Nucleated RBC % (auto) Sodium 141 Potassium 3.0 L Chloride 110 H Carbon Dioxide 21 L Anion Gap 13 BUN 22 H Creatinine 1.57 H Estim Creat Clear Calc 24.4 Estimated GFR 32 POC Glucose 187 H 244 H Random Glucose 98 Calcium 8.2 L 09/05/20 09/05/20 05:13 07:12 WBC 5.7 RBC 3.05 L Hgb 8.7 L Hct 26.6 L MCV 87.2 MCH 28.5 MCHC 32.7 RDW 13.2 Plt Count 189 MPV 12.8 H Absolute Nucleated RBC 0.000 Nucleated RBC % (auto) 0.0 Sodium Potassium Chloride Carbon Dioxide Anion Gap BUN Creatinine Estim Creat Clear Calc Estimated GFR POC Glucose 111 Random Glucose Calcium Discharge Plan Discharge Patient Disposition: Home, Self-Care Discharge Diagnosis: NSTEMI, chest pain Hypokalemia, hypomagnesemia Referrals: Physician,Unknown [Primary Care Provider] - 1 Week Discharge Medications: New clopidogrel 75 mg Tablet 75 mg PO DAILY 30 Days Qty: 30 RF: 0 atorvastatin 40 mg tablet 40 mg PO BEDTIME Qty: 30 RF: 0 Continued tolterodine 2 mg capsule,extended release 24hr 2 mg PO DAILY RF: 0 clonazepam 0.5 mg tablet 0.5 mg PO BID PRN (Reason: Anxiety) RF: 0 acetaminophen [Mapap Arthritis Pain] 650 mg tablet extended release 650 mg PO Q8H PRN (Reason: Pain) RF: 0 methocarbamol 750 mg tablet 375 mg PO Q12H PRN (Reason: SPASMS) RF: 0 docusate sodium [DOK] 100 mg capsule 1 cap PO BID RF: 0 cholecalciferol (vitamin D3) 50 mcg (2,000 unit) tablet 1 tab PO DAILY RF: 0 metoprolol succinate [Toprol XL] 25 mg tablet extended release 24 hr 25 mg PO DAILY 30 Days Qty: 30 RF: 0 isosorbide mononitrate 30 mg tablet extended release 24 hr 30 mg PO DAILY 30 Days Qty: 30 RF: 0 nitroglycerin 0.3 mg tablet, sublingual 0.3 mg sublingual Q5M PRN (Reason: chest pain) Qty: 14 RF: 0 pantoprazole [Protonix] 40 mg tablet,delayed release (DR/EC) 40 mg PO BID RF: 0 lisinopril 20 mg tablet 40 mg PO DAILY RF: 0 glipizide 5 mg tablet 10 mg PO BID RF: 0 senna 8.6 mg capsule 17.2 mg PO BEDTIME RF: 0 sertraline [Zoloft] 100 mg tablet 200 mg PO DAILY RF: 0 amlodipine 10 mg tablet 10 mg PO DAILY RF: 0 Discharge Orders: Discharge Order (Routine); Ordered 09/05/20 Ordered By: Trudy Burkett Diet: advance to usual diet and low salt diet Activity on Discharge: As tolerated Stand Alone Forms: Patient Portal Discharge page Care Plan Goals: Read below Health Concerns: Read below Plan of Treatment: You were admitted to the hospital for evaluation of chest pain. Evaluated by traffic control supervisor who recommended you to be transferred to [facility] for an angiogram. You did not agree with the plan and preferred medical management only which was the hospital. You were able to ambulate with no reported chest pain or dizziness. You were also noticed to have electrolyte imbalance which were repleted. Assessment: Start Plavix as prescribed Start atorvastatin as prescribed to follow up with Cardiology as outpatient for further evaluation and possible need of an angiogram
[2020-09-05 11:33] LABS: Glucose, Whole Blood 199 mg/dL (60-115)
[2020-09-05 11:38] VITALS: BP 153/65; PULSE 73; RESP 16; TEMP 37; O2SAT 99
[2020-09-05] MEDS: Insulin Lispro 100 UNIT/ML 3 ML VIAL SUBCUT (11:40)
--- NOTE | 2020-09-05 11:43 | PM.PNCARD ---
Subjective Subjective Date of Service: 09/05/20 Interval history: No chest pressure. Had bradycardia after getting beta-duy with heart rate 45. Physical Exam Vital Signs: Last Vital Signs Temp 98.6 F 09/05/20 11:38 Pulse 73 09/05/20 11:38 Resp 16 09/05/20 11:38 BP 153/65 H 09/05/20 11:38 Pulse Ox 99 09/05/20 11:38 Body Mass Index 23.1 GENERAL APPEARANCE: in no acute distress, pleasant. NECK: no carotid bruit, no jugular venous distention. SKIN: no suspicious lesions, warm and dry. HEART: no murmurs, regular rate and rhythm. LUNGS: clear to auscultation bilaterally. ABDOMEN: soft, nontender. EXTREMITIES: no edema. PERIPHERAL PULSES: equal. NEUROLOGIC: No gross deficits, AAO X 3 Results Labs and Meds Result diagrams: 09/05/20 05:13 09/05/20 05:13 Lab results: Laboratory Results - last 24 hr 09/04/20 09/04/20 09/05/20 16:36 20:33 05:13 WBC RBC Hgb Hct MCV MCH MCHC RDW Plt Count MPV Absolute Nucleated RBC Nucleated RBC % (auto) Sodium 141 Potassium 3.0 L Chloride 110 H Carbon Dioxide 21 L Anion Gap 13 BUN 22 H Creatinine 1.57 H Estim Creat Clear Calc 24.4 Estimated GFR 32 POC Glucose 187 H 244 H Random Glucose 98 Calcium 8.2 L 09/05/20 09/05/20 09/05/20 05:13 07:12 11:22 WBC 5.7 RBC 3.05 L Hgb 8.7 L Hct 26.6 L MCV 87.2 MCH 28.5 MCHC 32.7 RDW 13.2 Plt Count 189 MPV 12.8 H Absolute Nucleated RBC 0.000 Nucleated RBC % (auto) 0.0 Sodium Potassium Chloride Carbon Dioxide Anion Gap BUN Creatinine Estim Creat Clear Calc Estimated GFR POC Glucose 111 199 H Random Glucose Calcium Progress Note: A&P Assessment and plan (1) ACS (acute coronary syndrome): Status: Acute (2) CKD (chronic kidney disease): Status: Acute (3) Cardiomyopathy: Status: Acute Assessment and Plan: 80-year-old female who presented for chest discomfort and mildly abnormal troponin levels. She has background is chronic kidney disease and known cardiomyopathy based on echocardiography from April 2020 which showed EF of 40-45%. She had cardiac catheterization in 2005 when she had severe diagonal stenosis as well as somewhat diffuse looking LAD stenosis. She had moderate severe right coronary artery disease at that time. We discussed about cardiac catheterization but she wishes to be medically managed right now. With Lovenox and addition of Plavix her hemoglobin has dropped to 8.5. Repeat hemoglobin was 8.7. It appears she was not on aspirin before. Her blood pressure is elevated. Please increase amlodipine to 10 mg once a day. Follow-up with Dr. Wolf. Thank you for allowing me to participate in the care of your patient. Please feel free to contact me if you have any questions. Fall Risk Details Current Medications: Current Medications Generic Name Dose Route Start Last Admin Trade Name Freq PRN Reason Stop Dose Admin Acetaminophen 650 mg 09/03/20 06:26 Acetaminophen 325 Mg Tablet PO Q6H PRN Pain, Mild (Pain Scale 1-3) Amlodipine Besylate 5 mg 09/05/20 09:00 09/05/20 08:45 Amlodipine Besylate 5 Mg Tablet PO 5 mg DAILY DAVID Administration Protocol Clonazepam 0.5 mg 09/03/20 06:26 09/04/20 20:29 Clonazepam 0.5 Mg Tablet PO 0.5 mg BID PRN Administration Anxiety Clopidogrel Bisulfate 75 mg 09/04/20 09:00 09/05/20 08:36 Clopidogrel Bisulfate 75 Mg Tablet PO 75 mg DAILY DAVID Administration Cyclobenzaprine HCl 10 mg 09/03/20 06:43 Cyclobenzaprine Hcl 10 Mg Tablet PO BID PRN SPASMS Docusate Sodium 100 mg 09/03/20 09:00 09/05/20 08:35 Docusate Sodium 100 Mg Capsule PO 100 mg BID DAVID Administration Enoxaparin Sodium 60 mg 09/04/20 09:00 09/05/20 08:38 Enoxaparin Sodium 60 Mg/0.6 Ml Syringe SUBCUT 60 mg DAILY DAVID Administration Insulin Human Lispro 0 unit 09/03/20 07:30 09/05/20 11:40 Insulin Lispro 100 Unit/Ml 3 Ml Vial SUBCUT 2 unit QIDACHS [facility] Administration Protocol Isosorbide Mononitrate 60 mg 09/04/20 09:00 09/05/20 08:44 Isosorbide Mononitrate 60 Mg Tab.Er.24h PO 60 mg DAILY DAVID Administration Protocol Lisinopril 40 mg 09/03/20 09:00 09/05/20 08:45 Lisinopril 40 Mg Tablet PO 40 mg DAILY DAVID Administration Protocol Metoprolol Succinate 12.5 mg 09/06/20 09:00 Metoprolol Succinate Er 12.5 Mg Halftab.Er.24h PO DAILY DAVID Protocol Nitroglycerin 0.4 mg 09/03/20 06:40 Nitroglycerin 0.4 Mg Tab.Subl SUBLINGUAL Q5M PRN chest pain Omeprazole 20 mg 09/03/20 16:30 09/05/20 06:07 Omeprazole 20 Mg Capsule.Dr PO 20 mg BID@0063,5650 DAVID Administration Ondansetron HCl 4 mg 09/03/20 06:26 Ondansetron Hcl 4 Mg/2 Ml Vial IVPUSH Q8H PRN Nausea and Vomiting Polyethylene Glycol 17 gm 09/04/20 14:00 09/05/20 08:34 Polyethylene Glycol 3350 17 Gm Powd.Pack PO 17 gm DAILY DAVID Administration Sertraline HCl 200 mg 09/03/20 09:00 09/05/20 08:36 Sertraline Hcl 100 Mg Tablet PO 200 mg DAILY DAVID Administration Sodium Chloride 3 ml 09/03/20 08:00 09/05/20 08:39 0.9 % Sodium Chloride Flush 3 Ml Syringe IVFLUSH 3 ml QSHIFT DAVID Administration Tolterodine Tartrate 2 mg 09/03/20 09:00 09/05/20 08:36 Tolterodine Tartrate La 2 Mg Cap.Er.24h PO 2 mg DAILY DAVID Administration Time Spent With Patient Time: Total time spent is greater than 50% in coordination of care (as documented) at patient's floor/unit and/or counseling patient: Time with patient: 25 - 35 minutes Progress Note: Quality Stroke Does the patient have a stroke diagnosis?: No Procedures Date of Service Date of Service: 09/05/20
--- NOTE | 2020-09-05 11:48 | MHC.CM.PN ---
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 PATIENT OCCASIONALLY USES A CANE FOR AMBULATION ASSIST. SONS GERHARD AND MURPHY PROVIDE TRANSPORTATION. PCP IS [facility] MAC[facility] OF [facility] UPDATE MADE TO CM OFFICE IN [employer]. PATIENT IS AWARE OF DISCHARGE FOR 09/05. IMM 09/04 IN CHART. HER SON, GERHARD WILL PROVIDE TRANSPORT
== END 2020-09-05 13:05 | disposition home or self-care (01) | DRG 311 ==
LOC: HO.ED 01:49 → HO.EDOVER 07:09 → HO.S3 09:10
PROVIDERS: Admitting Provider Internal Medicine; Emergency Provider Internal Medicine; PCP Family Medicine; Visit Provider Student in an Organized Health Care Education/Training Program
DX: I24.9 Acute ischemic heart disease, unspecified (principal); D62 Acute posthemorrhagic anemia; N18.4 Chronic kidney disease, stage 4 (severe); I12.9 Hypertensive chronic kidney disease with stage 1 through stage 4 chronic kidney disease, or unspecified chronic kidney disease; E87.6 Hypokalemia; E78.5 Hyperlipidemia, unspecified; E83.42 Hypomagnesemia; E11.22 Type 2 diabetes mellitus with diabetic chronic kidney disease; Z20.822 Contact with and (suspected) exposure to COVID-19; Z88.6 Allergy status to analgesic agent; Z79.02 Long term (current) use of antithrombotics/antiplatelets; Z79.899 Other long term (current) drug therapy
CPT/HCPCS: 36415; 71045; 80048; 80053; 82947; 83735; 84484; 85025; 85027; 85610; 85730; 87635; 93005; 99285; J1650; J3475

== ENCOUNTER 2020-10-27 12:18 | Outpatient (REF) | payer MEDICARE, SELFPAY ==
--- NOTE | ~2020-10-27 | CT_ITS ---
EXAMINATION: CT ABDOMEN AND PELVIS WITHOUT CONTRAST CLINICAL INFORMATION: Epigastric pain. Abnormal weight loss. COMPARISON: Previous CT of the abdomen and pelvis August 2019 and pelvic ultrasound October 2019. TECHNIQUE: Multidetector volumetric imaging was performed from the superior aspect of the liver through the pubic symphysis. Sagittal and coronal reformatted images were obtained on the technologist's workstation. This CT examination was performed using dose optimization techniques as appropriate, variously including the following: *Automated exposure control *Adjustment of mA and/or kV according to patient size (this includes techniques or standardized protocols for targeted exams where dose is matched to indication/reason for exam; i.e. extremities or head) *Use of iterative reconstruction technique DLP: 233 mGy-cm FINDINGS: LUNG BASES: The visualized lung bases are unremarkable. LIVER, GALLBLADDER, AND BILIARY TREE: There are several liver cysts. The largest measures 2 x 3 cm high in the dome of the right lobe of the liver. The liver is normal in size, shape and attenuation. The gallbladder has been removed. There is no biliary duct dilatation. PANCREAS: There is question of mild dilatation of the main pancreatic duct. This measures up to 6 mm in the head of the pancreas for example axial image 23. SPLEEN: Unremarkable. ADRENAL GLANDS: Unremarkable. KIDNEYS AND URETERS: There are bilateral renal vascular calcifications. It is difficult to exclude a small nonobstructing stone. No hydronephrosis or mass is seen. BLADDER: Unremarkable. GASTROINTESTINAL TRACT: There is stool throughout the colon suggestive of constipation. Small and large bowel is otherwise unremarkable. The appendix is not seen. The stomach is unremarkable. ABDOMINAL WALL: No significant hernia is appreciated. LYMPH NODES: Normal. VASCULAR: There is evidence of severe atherosclerotic disease. PELVIC VISCERA: There is a 2.6 x 3.5 cm left adnexal cyst. This may have a slightly thickened wall. This is similar in size to July 2019 exam. The uterus and adnexa are otherwise unremarkable. OSSEOUS STRUCTURES: There are degenerative changes of the spine. CT/CT abdomen pelvis wo con IMPRESSION: Liver cysts. Mild dilatation of the main pancreatic duct measuring up to 6 mm in the head of the pancreas. This could be better assessed with MR with MRCP. Constipation. Stable 2.5 x 3.6 cm left adnexal cyst. Severe atherosclerotic disease.
--- NOTE | ~2020-10-27 | XR_ITS ---
EXAMINATION: XR CHEST CLINICAL INFORMATION: Abnormal weight loss. COMPARISON: Chest 09/03/2020 TECHNIQUE: 2 views of the chest were obtained. FINDINGS: The lungs are well-expanded and clear. The heart size and pulmonary vascularity is normal. There is mild spondylosis dorsal spine. There. XR/XR chest 2V IMPRESSION: Unremarkable chest exam.
== END 2020-10-27 12:19 | disposition home or self-care (01) ==
LOC: HO.CT 12:18
PROVIDERS: PCP Family Medicine; Visit Provider Family Medicine
DX: R10.13 Epigastric pain (principal); R63.4 Abnormal weight loss
CPT/HCPCS: 71046; 74176

== ENCOUNTER 2020-11-03 18:38 | Emergency (ER) | payer MEDICARE, SELFPAY ==
--- NOTE | ~2020-11-03 | XR_ITS ---
EXAMINATION: PORTABLE CHEST 1 VIEW CLINICAL INFORMATION: chest pain . COMPARISON: 10/27/2020. TECHNIQUE: Portable frontal view of the chest was obtained. FINDINGS: The lungs are well expanded. No focal infiltrate, effusion, edema, or pneumothorax. Cardiac and mediastinal silhouettes are within normal limits for size with vascular calcification in the aorta. Degenerative changes in the spine and shoulders. No acute bony abnormality seen. XR/XR chest 1V IMPRESSION: No evidence of acute disease.
--- NOTE | 2020-11-03 18:49 | ECG_ITS ---
Test Reason : CHEST PAIN Blood Pressure : / mmHG Vent. Rate : 084 BPM Atrial Rate : 084 BPM P-R Int : 132 ms QRS Dur : 130 ms QT Int : 450 ms P-R-T Axes : 049 002 020 degrees QTc Int : 531 ms Sinus rhythm with frequent Premature ventricular complexes Right bundle branch block Abnormal ECG When compared with ECG of 03-SEP-2020 11:32, No significant change was found Referred By: Generic ED Physician Electronically Signed By:RAFFI SHABAZZ
[2020-11-03 19:15] VITALS: BP 162/61; PULSE 87; RESP 17; TEMP 36.6; O2SAT 99; BMI 21.9
[2020-11-03 19:17] LABS: MANUAL DIFF FLAG NO
[2020-11-03 19:18] LABS: Basophils Percent Auto 0.3 % (0-2); Eosinophils Absolute Auto 0.1 X10*3/uL (0.0-0.4); Eosinophils Percent Auto 1.3 % (0-4); Hematocrit 27.1 % (37-47); Hemoglobin 9.2 g/dl (12.0-16.0); Imm Gran Abs Auto 0.02 X10*3/uL (0.00-0.03); Imm Gran Pct Auto 0.3 % (0.0-0.4); Lymphocytes Absolute Auto 2.4 X10*3/uL (1.2-4.9); Lymphocytes Percent Auto 31.6 % (20-40); Mean Corpuscular HGB Conc 33.9 g/dl (31.0-35.0); Mean Corpuscular Hemoglobin 29.2 pg (27.0-33.0); Monocytes Absolute Auto 0.7 X10*3/uL (0.1-1.2); Monocytes Percent Auto 9.4 % (2-11); Neutrophils Absolute Auto 4.2 X10*3/uL (2.0-8.3); Neutrophils Percent Auto 57.1 % (45-73); Platelet Count 203 X10*3/uL (160-400); Red Blood Count 3.15 X10*6/uL (4.20-5.50); Red Cell Distribution Width 13.1 % (11.0-16.0); White Blood Count 7.4 X10*3/uL (4.8-10.8)
[2020-11-03 19:32] LABS: Anion Gap 13 (12-20); Blood Urea Nitrogen 21 mg/dL (9-16); Carbon Dioxide 23 mmol/L (22-29); Chloride 105 mmol/L (96-108); Creatinine Clr Calc Pharmacy 16.8; Estimated Glomerular Filt Rate 25; Glucose Random 266 mg/dL (60-115); Potassium 3.5 mmol/L (3.3-5.1); Sodium 137 mmol/L (135-145)
--- NOTE | 2020-11-03 21:10 | ED.CHESTPAIN ---
HPI - Chest Pain General Chief Complaint: Chest Pain Stated Complaint: Chest pain headache Time Seen by Provider: 11/03/20 20:46 Source: patient, old records reviewed and hourly sign language interpreter Limitations: no limitations History of Present Illness HPI narrative: Patient presents with approximately 5-6 hours worth of headache and chest discomfort. Patient has a history of significant coronary artery disease with severe low LAD lesions back as far as 2005. Recent echocardiogram showed an ejection fraction 45% in the spring of this year. She was recently hospitalized with chest pain of similar nature in August of this year. Her troponins were elevated time but remained flat. She has consulted on by Cardiology and decision was made to manage this medically. She did not want another cardiac catheterization. She states the symptoms are similar but her headache is worse. He has had several in the past including CAT scans which have been unremarkable. She also complains of diabetic gastroparesis and nausea with weight loss. This is also an ongoing chronic problem. Related Data Home Medications Medication Instructions Recorded Confirmed amlodipine 10 mg tablet 10 mg PO DAILY 01/01/20 09/03/20 glipizide 5 mg tablet 10 mg PO BID 01/01/20 09/03/20 lisinopril 20 mg tablet 40 mg PO DAILY 01/01/20 09/03/20 sennosides 8.6 mg capsule (senna) 17.2 mg PO BEDTIME 01/01/20 09/03/20 sertraline 100 mg tablet (Zoloft) 200 mg PO DAILY 01/01/20 09/03/20 pantoprazole 40 mg tablet,delayed 40 mg PO BID 01/27/20 09/03/20 release (Protonix) acetaminophen 650 mg 650 mg PO Q8H PRN 05/14/20 09/03/20 tablet,extended release (Mapap Arthritis Pain) cholecalciferol (vitamin D3) 50 1 tab PO DAILY 05/14/20 09/03/20 mcg (2,000 unit) tablet clonazepam 0.5 mg tablet 0.5 mg PO BID PRN 05/14/20 09/03/20 docusate sodium 100 mg capsule 1 cap PO BID 05/14/20 09/03/20 (DOK) methocarbamol 750 mg tablet 375 mg PO Q12H PRN 05/14/20 09/03/20 tolterodine 2 mg capsule,extended 2 mg PO DAILY 05/14/20 09/03/20 release 24 hr Previous Rx's Medication Instructions Recorded isosorbide mononitrate 30 mg 30 mg PO DAILY 30 Days #30 tab 05/15/20 tablet,extended release 24 hr metoprolol succinate 25 mg 25 mg PO DAILY 30 Days #30 tab 05/15/20 tablet,extended release 24 hr (Toprol XL) nitroglycerin 0.3 mg sublingual 0.3 mg SUBLINGUAL Q5M PRN #14 tab 05/15/20 tablet atorvastatin 40 mg tablet 40 mg PO BEDTIME #30 tab 09/05/20 clopidogrel 75 mg tablet 75 mg PO DAILY 30 Days #30 tab 09/05/20 Allergies Allergy/AdvReac Type Severity Reaction Status Date / Time prochlorperazine Allergy Severe SEIZURE Verified 11/03/20 19:15 adhesive tape [ADHESIVE TAPE] Allergy Intermediate RASH Verified 11/03/20 19:15 latex [LATEX] Allergy Intermediate RASH Verified 11/03/20 19:15 clarithromycin Allergy Mild RASH Verified 11/03/20 19:15 hydrochlorothiazide Allergy Mild RASH Verified 11/03/20 19:15 metoclopramide [From Reglan] AdvReac Severe SEIZURES Verified 11/03/20 19:15 milk [MILK] AdvReac Intermediate GI UPSET Verified 11/03/20 19:15 ibuprofen AdvReac Unknown unknown Verified 11/03/20 19:15 BIAXIN Allergy Intermediate RASH Uncoded 06/15/20 11:10 Review of Systems Constitutional: Constitutional: Reports anorexia and Reports weight loss Eyes: Comments: No vision changes Cardiovascular: Cardiovascular: Denies dyspnea Comments: Chest pain which she describes as substernal and sharp Respiratory: Respiratory: Denies dyspnea Comments: She states in August when she was here with chest pain she had shortness of breath but does not have any now Gastrointestinal: Comments: Nausea and epigastric discomfort which is chronic Musculoskeletal: Musculoskeletal: Reports no additional musculoskeletal complaints Neurologic: Comments: No syncope [facility] Past Medical History [facility] Narrative: No sick contacts Medical History Anemia Arthritis Atherosclerotic cardiovascular disease CAD (coronary artery disease) Depression Diabetes Essential hypertension HLD (hyperlipidemia) HTN (hypertension) Precordial chest pain Surgical History History of History of esophagogastroduodenoscopy (EGD) History of hysteroscopy Hx of cholecystectomy Hx of colonoscopy Hx of eye surgery Family History Family History Father Colon cancer Myocardial infarction Mother Uterine cancer Social History Social History Alcohol intake: never Patient Tobacco Use Status: Never used Tobacco Second Hand Smoke Exposure: No Advance Directives: No Advance Directives Information Provided: No Advance Directives Date on File: 05/14/20 service: No Current occupational status: disabled Sexual orientation: Straight/Heterosexual Gender identity: Female Physical Exam Vital Signs: Vital Signs: Last Vital Signs Temp 97.9 F 11/03/20 19:15 Pulse 69 11/03/20 22:34 Resp 14 11/03/20 21:55 BP 185/77 H 11/03/20 22:34 Pulse Ox 99 11/03/20 21:55 Body Mass Index 21.9 Const: Other: No acute distress, frail elderly patient HENMT: Other: Tenderness to posterior scalp which reproduces headache symptoms Chest: Other: Anterior chest tender to palpation Resp: Other: Clear and equal bilaterally Cardio: Other: Regular rate and rhythm without murmurs rubs or gallops GI: Other: Epigastric tenderness to palpation without guarding or rebound. No distention. Normoactive bowel sounds Skin: Other: Warm pink and dry. Mucosa dry Neuro: Other: Alert and oriented without obvious focal new neurologic deficits Course Course Course Narrative: Patient with chest pain and longstanding history of coronary artery disease. Also history of gastroparesis. Pain could be cardiac or GI in origin. Headache which is also acute on chronic. No neurologic deficit I do not think she needs another CT scan at this point as she has already been worked up in the past. Hypertension Hypertensive emergency new line Will treat with IV fluids, 500 cc, gentle bolus as patient has a low ejection fraction. Confirm that ibuprofen and adverse reaction is gastric in nature. Will treat with low-dose Ketoralac. Aspirin for chest pain Diphenhydramine for nausea as well. Workup in emergency department shows mildly elevated high sensitivity troponin similar to values in August. Will repeat to check for Delta. Hemoglobin is 9.2 which has improved since August Creatinine is 1.7 which is also similar to baseline. EKG shows no obvious ischemic changes. Remainder of labs so far unremarkable 11:09 p.m.. Second troponin is 21. Given no significant delta, it does not appear to be cardiac in nature. She is still complaining of headache however. She states she has never had 1 this bad before. Given hypertension, I will repeat CT scan tonight 11:34 p.m.. Patient is requesting discharge home and would like to get her CT scan as an outpatient. And she is otherwise stable, I think this is a reasonable plan MDM - Chest Pain Lab Data Result diagrams: 11/03/20 19:12 11/03/20 19:12 Labs: Lab Results 11/03/20 11/03/20 11/03/20 Range/Units 19:12 19:12 19:12 WBC 7.4 (4.8-10.8) X10*3/uL RBC 3.15 L (4.20-5.50) X10*6/uL Hgb 9.2 L (12.0-16.0) g/dl Hct 27.1 L (37-47) % MCV 86.0 (80-98) fL MCH 29.2 (27.0-33.0) pg MCHC 33.9 (31.0-35.0) g/dl RDW 13.1 (11.0-16.0) % Plt Count 203 (160-400) X10*3/uL MPV 12.0 (9.4-12.3) fL Immature Gran % (Auto) 0.3 (0.0-0.4) % Neut % (Auto) 57.1 (45-73) % Lymph % (Auto) 31.6 (20-40) % [place] % (Auto) 9.4 (2-11) % Eos % (Auto) 1.3 (0-4) % Baso % (Auto) 0.3 (0-2) % Lymph # (Auto) 2.4 (1.2-4.9) X10*3/uL [place] # (Auto) 0.7 (0.1-1.2) X10*3/uL Eos # (Auto) 0.1 (0.0-0.4) X10*3/uL Baso # (Auto) 0.0 (0.0-0.2) X10*3/uL Abs Immat Gran (auto) 0.02 (0.00-0.03) X10*3/uL Absolute Neuts (auto) 4.2 (2.0-8.3) X10*3/uL Absolute Nucleated RBC 0.000 (0.0-0.012) X10*3/uL Nucleated RBC % (auto) 0.0 (0.0-0.2) /100WBC Sodium 137 (135-145) mmol/L Potassium 3.5 (3.3-5.1) mmol/L Chloride 105 (96-108) mmol/L Carbon Dioxide 23 (22-29) mmol/L Anion Gap 13 (12-20) BUN 21 H (9-16) mg/dL Creatinine 1.97 H (0.5-1.4) mg/dL Estim Creat Clear Calc 16.8 Estimated GFR 25 POC Glucose (60-115) mg/dL Random Glucose 266 H (60-115) mg/dL Calcium 8.0 L (8.4-10.2) mg/dL Troponin I High Sens 20.0 H* (<3.5-17.0) ng/L 11/03/20 11/03/20 Range/Units 21:30 22:20 WBC (4.8-10.8) X10*3/uL RBC (4.20-5.50) X10*6/uL Hgb (12.0-16.0) g/dl Hct (37-47) % MCV (80-98) fL MCH (27.0-33.0) pg MCHC (31.0-35.0) g/dl RDW (11.0-16.0) % Plt Count (160-400) X10*3/uL MPV (9.4-12.3) fL Immature Gran % (Auto) (0.0-0.4) % Neut % (Auto) (45-73) % Lymph % (Auto) (20-40) % [place] % (Auto) (2-11) % Eos % (Auto) (0-4) % Baso % (Auto) (0-2) % Lymph # (Auto) (1.2-4.9) X10*3/uL [place] # (Auto) (0.1-1.2) X10*3/uL Eos # (Auto) (0.0-0.4) X10*3/uL Baso # (Auto) (0.0-0.2) X10*3/uL Abs Immat Gran (auto) (0.00-0.03) X10*3/uL Absolute Neuts (auto) (2.0-8.3) X10*3/uL Absolute Nucleated RBC (0.0-0.012) X10*3/uL Nucleated RBC % (auto) (0.0-0.2) /100WBC Sodium (135-145) mmol/L Potassium (3.3-5.1) mmol/L Chloride (96-108) mmol/L Carbon Dioxide (22-29) mmol/L Anion Gap (12-20) BUN (9-16) mg/dL Creatinine (0.5-1.4) mg/dL Estim Creat Clear Calc Estimated GFR POC Glucose 201 H (60-115) mg/dL Random Glucose (60-115) mg/dL Calcium (8.4-10.2) mg/dL Troponin I High Sens 21.0 H* (<3.5-17.0) ng/L Discharge Plan Discharge Clinical Impression: Chest pain Qualifiers: Chest pain type: unspecified Qualified Code(s): R07.9 - Chest pain, unspecified Headache Qualifiers: Headache type: tension-type Headache chronicity pattern: acute headache Intractability: not intractable Qualified Code(s): G44.209 - Tension-type headache, unspecified, not intractable Hypertension Qualifiers: Hypertension type: unspecified Qualified Code(s): I10 - Essential (primary) hypertension Patient Disposition: Home, Self-Care Instructions: Chest Pain (ED), Acute Headache (ED), Chronic Hypertension (ED) Additional Instructions: Continue your current home medications. Call your PCP for follow-up Prescriptions: No Action clopidogrel 75 mg Tablet 75 mg PO DAILY 30 Days Qty: 30 RF: 0 atorvastatin 40 mg tablet 40 mg PO BEDTIME Qty: 30 RF: 0 tolterodine 2 mg capsule,extended release 24hr 2 mg PO DAILY RF: 0 clonazepam 0.5 mg tablet 0.5 mg PO BID PRN (Reason: Anxiety) RF: 0 acetaminophen [Mapap Arthritis Pain] 650 mg tablet extended release 650 mg PO Q8H PRN (Reason: Pain) RF: 0 methocarbamol 750 mg tablet 375 mg PO Q12H PRN (Reason: SPASMS) RF: 0 docusate sodium [DOK] 100 mg capsule 1 cap PO BID RF: 0 cholecalciferol (vitamin D3) 50 mcg (2,000 unit) tablet 1 tab PO DAILY RF: 0 metoprolol succinate [Toprol XL] 25 mg tablet extended release 24 hr 25 mg PO DAILY 30 Days Qty: 30 RF: 0 isosorbide mononitrate 30 mg tablet extended release 24 hr 30 mg PO DAILY 30 Days Qty: 30 RF: 0 nitroglycerin 0.3 mg tablet, sublingual 0.3 mg sublingual Q5M PRN (Reason: chest pain) Qty: 14 RF: 0 pantoprazole [Protonix] 40 mg tablet,delayed release (DR/EC) 40 mg PO BID RF: 0 lisinopril 20 mg tablet 40 mg PO DAILY RF: 0 glipizide 5 mg tablet 10 mg PO BID RF: 0 senna 8.6 mg capsule 17.2 mg PO BEDTIME RF: 0 sertraline [Zoloft] 100 mg tablet 200 mg PO DAILY RF: 0 amlodipine 10 mg tablet 10 mg PO DAILY RF: 0
[2020-11-03] MEDS: 0.9 % Sodium Chloride 500 ML IV (21:48)
[2020-11-03] MEDS: Aspirin Enteric Coated 325 MG TABLET.DR PO (21:48)
[2020-11-03] MEDS: ondansetron HCL 4 MG/2 ML VIAL IVPUSH (21:50)
[2020-11-03] MEDS: diphenhydrAMINE HCL 50 MG/ML VIAL 25 MG IVPUSH (21:51)
[2020-11-03] MEDS: Ketorolac Tromethamine 15 MG/ML VIAL IVPUSH (21:52)
[2020-11-03 21:55] VITALS: PULSE 70; RESP 14; O2SAT 99
[2020-11-03 22:05] VITALS: BP 191/87
[2020-11-03 22:23] LABS: Glucose, Whole Blood 201 mg/dL (60-115)
[2020-11-03 22:34] VITALS: BP 185/77; PULSE 69
[2020-11-03] MEDS: amLODIPine Besylate 10 MG TABLET PO (22:34)
== END 2020-11-03 23:50 | disposition home or self-care (01) ==
PROVIDERS: Emergency Provider Emergency Medicine; PCP Family Medicine
DX: R07.9 Chest pain, unspecified (principal); G44.209 Tension-type headache, unspecified, not intractable; I10 Essential (primary) hypertension; Z79.899 Other long term (current) drug therapy
CPT/HCPCS: 36415; 71045; 80048; 82947; 84484; 85025; 93005; 96361; 96374; 96375; 99284; J1200; J1885; J2405

== ENCOUNTER 2020-11-08 12:04 | Outpatient (REF) | payer MEDICARE, SELFPAY ==
--- NOTE | ~2020-11-08 | XR_ITS ---
EXAMINATION: XR SINUSES CLINICAL INFORMATION: Sinusitis and headaches COMPARISON: None TECHNIQUE: 4 views of the sinuses were obtained. FINDINGS: The paranasal sinuses are well aerated and clear. No soft tissue opacification or air-fluid level to suggest sinusitis is seen. XR/XR sinus min 3V IMPRESSION: Unremarkable examination.
== END 2020-11-08 12:05 | disposition home or self-care (01) ==
LOC: HO.XRAY 12:04
PROVIDERS: PCP Family Medicine; Visit Provider Otolaryngology
DX: J32.9 Chronic sinusitis, unspecified (principal); R51.9 Headache, unspecified
CPT/HCPCS: 70220

== ENCOUNTER → 2020-11-12 11:51 | Outpatient (BNVA) | payer MEDICARE, SELFPAY | PROVIDERS: PCP Family Medicine; Visit Provider Nurse Practitioner Family | DX: K21.9 Gastro-esophageal reflux disease without esophagitis (principal); K59.04 Chronic idiopathic constipation; K86.89 Other specified diseases of pancreas | CPT/HCPCS: 99212 ==

== ENCOUNTER 2020-11-15 11:38 | Outpatient (REF) | payer MEDICARE, SELFPAY ==
[2020-11-15 13:00] LABS: Estimated Average Glucose 180 mg/dL; Hemoglobin A1c % 7.9 %
[2020-11-15 13:21] LABS: Lipase < 4 U/L (8-78)
[2020-11-15 13:31] LABS: TSH reflex Free T4 1.55 uIU/mL (0.32-4.0)
== END 2020-11-15 11:39 | disposition home or self-care (01) ==
LOC: HO.LAB 11:38
PROVIDERS: PCP Family Medicine; Visit Provider Nurse Practitioner Family
DX: K59.04 Chronic idiopathic constipation (principal); E11.9 Type 2 diabetes mellitus without complications; K21.9 Gastro-esophageal reflux disease without esophagitis
CPT/HCPCS: 36415; 83036; 83690; 84443

== ENCOUNTER 2020-11-17 08:28 | Outpatient (REF) | payer MEDICARE, SELFPAY ==
--- NOTE | ~2020-11-17 | MR_ITS ---
EXAMINATION: MR ABDOMEN WITHOUT CONTRAST CLINICAL INFORMATION: Epigastric pain. Abnormal weight loss. Follow-up abnormal pancreas on CT scan. COMPARISON: Previous CT scans of the abdomen and pelvis most recent October 2020 and previous MRI of the abdomen April 2018 TECHNIQUE: MR abdomen is performed without gadolinium contrast. MRCP sequences were also performed. FINDINGS: LUNG BASES: The visualized lung bases are unremarkable. LIVER, GALLBLADDER, AND BILIARY TREE: The liver is normal in size, shape and signal. There are multiple low signal on T1 and high signal on T2-weighted sequences lesions in the liver probably representing liver cysts. These are stable; the largest measures 1.8 cm in the right lobe of the liver. There is no intrahepatic biliary duct dilatation. The gallbladder has been removed. There is mild dilatation of the main pancreatic duct measuring 1 cm. This is stable from prior exam and may be normal cholecystectomy. PANCREAS: There is atrophy of the pancreas. There is irregularity with narrowing and dilatation of the main pancreatic duct measuring up to 8 mm. There are dilated biliary radicles that appear to communicate with the main pancreatic duct. This does not appear appreciably changed. There is question of a smaller separate cyst in the pancreas for example, measuring 8 mm in the head (axial image 10) and 7 mm in the junction of the body and tail the pancreas (axial image 7 series 4). These findings do not appear appreciably changed from prior exam April 2018. There are calcifications seen on CT scan in the pancreas. Again differential would include changes from chronic pancreatitis and papillary mucinous neoplasm/IPMN. Follow-up ERCP may be helpful. SPLEEN: Unremarkable. ADRENAL GLANDS: Unremarkable. KIDNEYS AND URETERS: The kidneys are normal in size and shape. No hydronephrosis. No perinephric stranding. GASTROINTESTINAL TRACT: There is diverticulosis of the colon. No bowel obstruction. No ascites or fluid collection. ABDOMINAL WALL: No significant hernia is appreciated. There is a left pelvic cyst that measures 2.1 x 3.7 cm in transverse and AP dimension and is seen on on localizer and MRCP coronal sequences that appears unchanged. LYMPH NODES: No lymphadenopathy. VASCULAR: Unremarkable. OSSEOUS STRUCTURES: Marrow signal normal. There are degenerative changes of the spine and mild scoliosis. MR/MR MRCP IMPRESSION: Irregular dilated main pancreatic duct and dilated biliary radicles that may communicate with the main pancreatic duct. There is question of separate cysts in the head and junction of the body and tail of the pancreas. These do not appear appreciably changed from prior MRI April 2018 and probably represents changes of chronic pancreatitis. Side branch IPMN cannot be excluded and follow-up ERCP should be considered if clinically indicated.
== END 2020-11-17 08:29 | disposition home or self-care (01) ==
LOC: HO.MRI 08:28
PROVIDERS: PCP Family Medicine; Visit Provider Family Medicine
DX: K86.89 Other specified diseases of pancreas (principal); R93.5 Abnormal findings on diagnostic imaging of other abdominal regions, including retroperitoneum
CPT/HCPCS: 74181

== ENCOUNTER 2020-12-09 13:12 | Outpatient (REF) | payer MEDICARE, SELFPAY ==
--- NOTE | ~2020-12-09 | MM_ITS ---
EXAMINATION: MM SCREENING DIGITAL BREAST TOMOSYNTHESIS, BILATERAL CLINICAL INFORMATION: Screening. Asymptomatic. The lifetime risk of breast cancer based on the Tyrer-Cuzick Model is 3%. COMPARISON: Mammography: 12/13/2018, 10/10/2017, 09/21/2016 TECHNIQUE: Digital breast tomosynthesis is performed in both the craniocaudal and mediolateral oblique views along with computer-aided detection (CAD). Synthesized 2D images are generated from the tomosynthesis. FINDINGS: There are scattered areas of fibroglandular density (ACR BI-RADS breast composition Category b). There are no significant masses, abnormal calcifications, or other abnormalities. Parenchymal pattern is similar to prior studies. No developing density. There are scattered bilateral benign round bilateral vascular calcifications again seen. The axilla are unremarkable. No significant changes. MM/MM tomosynthesis screening BI IMPRESSION: No mammographic evidence of malignancy. ASSESSMENT: BI-RADS 1: Negative RECOMMENDATION: Routine annual mammography screening. This patient's information was entered into a reminder system with a target due date for their next mammogram.
== END 2020-12-09 13:13 | disposition home or self-care (01) ==
LOC: HO.MAMMO 13:12
PROVIDERS: PCP Family Medicine; Visit Provider Family Medicine
DX: Z12.31 Encounter for screening mammogram for malignant neoplasm of breast (principal)
CPT/HCPCS: 77063; 77067

== ENCOUNTER 2020-12-16 13:26 | Outpatient (REF) | payer MEDICARE, SELFPAY ==
--- NOTE | 2020-12-16 15:02 | MHC.AU.HAS ---
Hearing Aid Evaluation Date of Visit: 12/16/20 General Cargo Clerk Used: Not Applicable Historical Information: Description of Hearing: Mild sloping to severe sensorineural hearing loss bilaterally. Current personal amplification information, if applicable: NONE Summary: Barbara reports increasing hearing difficulties and constantly asking others to repeat what was said. She is only able to understand what someone is saying when they are in the same room facing her. Due to history of arthritis and diabetes, recommend binaural rechargeable hearing aids for easier manipulation. Audiogram and medical clearance from Dr. Bonner received. Hearing Aid Prescription: Based on the individual?s shared listening needs, communication environments, dexterity, desire for connectivity, and personal preferences, the following prescription for amplification has been made: Right ear: Utility Specialist: Phonak Model: Audeo P 70-R Battery Size: Rechargeable Color: Silver Schmitz Major Donor Coordinator: #1 Medium Type of Dome: Open Left ear: Left ear prescription to be same as Right Hearing Aid above: Utility Specialist: Phonak Model: Audeo P 70-R Battery Size: Rechargeable Color: Silver Schmitz Major Donor Coordinator: #1 Medium Type of Dome: Open Plan of Care: Patient wishes to purchase hearing aids as prescribed Action Taken/Action Needed: Prior authorization to be requested Hearing Instrument Fitting to be scheduled when materials arrive Primary Diagnosis: H90.3 Bilateral Sensorineural Hearing Loss Signature: Provider: Aida Melendez, [facility]
== END 2020-12-16 13:27 | disposition home or self-care (01) ==
LOC: HO.HAP 13:26
PROVIDERS: Visit Provider Family Medicine
DX: Z46.1 Encounter for fitting and adjustment of hearing aid (principal); H90.3 Sensorineural hearing loss, bilateral
CPT/HCPCS: 92591

== ENCOUNTER → 2020-12-31 08:37 | Outpatient (BNVA) | payer MEDICARE, SELFPAY | PROVIDERS: PCP Family Medicine; Visit Provider Nurse Practitioner Family | CPT/HCPCS: Q3014 ==

== ENCOUNTER 2021-01-05 11:57 | Outpatient (REF) | payer MEDICARE, SELFPAY ==
[2021-01-05 12:43] LABS: Appearance Urine CLEAR; Color Urine YELLOW; Glucose Urine UA 500 MG/DL (NEG); Leukocyte Esterase Urine NEG (NEG); Nitrite Urine NEG (NEG); PH 5.5 (5.0-8.0); Specific Gravity - Urine 1.015 (1.005-1.025); Urine Blood TRACE (NEG); Urine Ketones NEG (NEG); Urine Protein 2+ MG/DL (NEG-TRACE)
[2021-01-05 12:52] LABS: Anion Gap 12 (12-20); Blood Urea Nitrogen 16 mg/dL (9-16); Carbon Dioxide 25 mmol/L (22-29); Chloride 101 mmol/L (96-108); Estimated Glomerular Filt Rate 26; Potassium 3.2 mmol/L (3.3-5.1); Sodium 135 mmol/L (135-145)
[2021-01-05 13:07] LABS: Creatinine Urine 64.35 mg/dL; Protein/Creatinine Ratio, Ur 1.17 (<0.2); Total Protein Urine Random 75 mg/dL (<12)
[2021-01-05 13:15] LABS: RBC Urine 0 /HPF (0); Squamous Epithelial Cell Urine TRACE /LPF; WBC Urine 0-2 /HPF (0-4)
== END 2021-01-05 11:58 | disposition home or self-care (01) ==
LOC: HO.LAB 11:57
PROVIDERS: PCP Family Medicine; Visit Provider Internal Medicine Nephrology
DX: N18.32 Chronic kidney disease, stage 3b (principal)
CPT/HCPCS: 36415; 80051; 81001; 82310; 82565; 84156; 84520

== ENCOUNTER → 2021-02-22 11:01 | Outpatient (BNVA) | payer MEDICARE, SELFPAY | PROVIDERS: PCP Family Medicine; Referring Provider Family Medicine; Visit Provider Nurse Practitioner Family | DX: K86.89 Other specified diseases of pancreas (principal); K21.9 Gastro-esophageal reflux disease without esophagitis; R14.0 Abdominal distension (gaseous) | CPT/HCPCS: 99212 ==

== ENCOUNTER 2021-04-21 10:23 | Outpatient (REF) | payer MEDICARE, SELFPAY ==
[2021-04-21 10:44] LABS: MANUAL DIFF FLAG NO
[2021-04-21 11:16] LABS: Basophils Percent Auto 0.2 % (0-2); Eosinophils Absolute Auto 0.2 X10*3/uL (0.0-0.4); Eosinophils Percent Auto 2.5 % (0-4); Hematocrit 26.1 % (37.0-47.0); Hemoglobin 8.5 g/dl (12.0-16.0); Imm Gran Abs Auto 0.03 X10*3/uL (0.00-0.03); Imm Gran Pct Auto 0.5 % (0.0-0.4); Lymphocytes Absolute Auto 1.4 X10*3/uL (1.2-4.9); Lymphocytes Percent Auto 22.4 % (20-40); Mean Corpuscular HGB Conc 32.6 g/dl (31.0-35.0); Mean Corpuscular Hemoglobin 29.9 pg (27.0-33.0); Mean Corpuscular Volume 91.9 fL (80.0-98.0); Mean Platelet Volume 12.3 fL (9.4-12.3); Monocytes Absolute Auto 0.6 X10*3/uL (0.1-1.2); Monocytes Percent Auto 9.2 % (2-11); Neutrophils Absolute Auto 4.1 x10*3/uL (2.0-8.3); Neutrophils Percent Auto 65.2 % (45-73); Platelet Count 206 X10*3/uL (160-400); Red Blood Count 2.84 X10*6/uL (4.20-5.50); White Blood Count 6.3 X10*3/uL (4.8-10.8)
[2021-04-21 11:45] LABS: Appearance Urine CLEAR; Color Urine YELLOW; Glucose Urine UA 250 MG/DL (NEG); Leukocyte Esterase Urine 1+ (NEG); Nitrite Urine NEG (NEG); PH 5.5 (5.0-8.0); Urine Blood TRACE (NEG); Urine Ketones NEG (NEG); Urine Protein 2+ MG/DL (NEG-TRACE)
[2021-04-21 11:52] LABS: Anion Gap 12 (12-20); Blood Urea Nitrogen 21 mg/dL (9-16); Calcium 7.8 mg/dL (8.4-10.2); Carbon Dioxide 26 mmol/L (22-29); Chloride 105 mmol/L (96-108); Estimated Glomerular Filt Rate 28; Iron 52 mcg/dL (30-160); Percent Iron Saturation 22 % (15-50); Potassium 3.6 mmol/L (3.3-5.1); Sodium 139 mmol/L (135-145); Total Iron Binding Capacity 239 mcg/dL (228-428); Unsaturated Iron Binding 187 ug/dL
[2021-04-21 11:56] LABS: Bacteria Urine TRACE /LPF; RBC Urine 0-2 /HPF (0); Squamous Epithelial Cell Urine 1+ /LPF
[2021-04-21 12:37] LABS: Creatinine Urine 87.74 mg/dL; Protein/Creatinine Ratio, Ur 1.83 (<0.2); Total Protein Urine Random 161 mg/dL (<12)
== END 2021-04-21 10:24 | disposition home or self-care (01) ==
LOC: HO.LAB 10:23
PROVIDERS: PCP Family Medicine; Visit Provider Internal Medicine Nephrology
DX: N18.32 Chronic kidney disease, stage 3b (principal); E55.9 Vitamin D deficiency, unspecified
CPT/HCPCS: 36415; 80051; 81001; 82306; 82310; 82565; 83540; 84156; 84520; 85025

== ENCOUNTER 2021-05-19 13:25 | Outpatient (REF) | payer OTHER, SELFPAY ==
[2021-05-19 15:34] LABS: Alanine Aminotransferase 21 U/L (0-31); Albumin Level 3.7 g/dL (3.5-5.0); Alkaline Phosphatase 137 U/L (39-117); Anion Gap 12 (12-20); Aspartate Amino Transferase 28 U/L (5-31); Bilirubin Total 0.4 mg/dL (0.0-1.0); Blood Urea Nitrogen 25 mg/dL (9-16); Carbon Dioxide 23 mmol/L (22-29); Chloride 106 mmol/L (96-108); Estimated Glomerular Filt Rate 22; Glucose Random 286 mg/dL (60-115); Potassium 3.5 mmol/L (3.3-5.1); Sodium 137 mmol/L (135-145); Total Protein 6.7 g/dL (6.5-8.0)
== END 2021-05-19 13:26 | disposition home or self-care (01) ==
LOC: HO.LAB 13:25
PROVIDERS: PCP Family Medicine; Referring Provider Family Medicine; Visit Provider Nurse Practitioner Family
DX: C25.0 Malignant neoplasm of head of pancreas (principal); K58.1 Irritable bowel syndrome with constipation; K21.9 Gastro-esophageal reflux disease without esophagitis; K59.04 Chronic idiopathic constipation; K86.89 Other specified diseases of pancreas; Z71.3 Dietary counseling and surveillance
CPT/HCPCS: 36415; 80053; 99212

== ENCOUNTER 2021-05-24 10:44 | Outpatient (REF) | payer OTHER, SELFPAY | END 2021-05-24 10:45 | disposition home or self-care (01) | LOC: HO.PET 10:44 | PROVIDERS: Visit Provider Internal Medicine | DX: Z13.89 Encounter for screening for other disorder (principal) ==

== ENCOUNTER 2021-05-26 11:44 | Outpatient (REF) | payer OTHER, SELFPAY ==
[2021-05-26 12:56] LABS: Potassium 3.6 mmol/L (3.3-5.1)
== END 2021-05-26 11:45 | disposition home or self-care (01) ==
LOC: HO.LAB 11:44
PROVIDERS: PCP Family Medicine; Visit Provider Nurse Practitioner Family
DX: E87.6 Hypokalemia (principal)
CPT/HCPCS: 36415; 84132

== ENCOUNTER 2021-05-31 11:03 | Outpatient (REF) | payer OTHER, SELFPAY ==
--- NOTE | ~2021-05-31 | PE_ITS ---
EXAMINATION: Fluorine-18 FDG PET/CT Scan CLINICAL INDICATION: Initial treatment management. Pancreatic cancer, staging. PROCEDURE: 56 minutes following the intravenous administration of 15.6 mCi of fluorine 18 FDG, images from the base of the skull to the mid thighs were obtained using a combined PET/CT scanner with CT scan based attenuation correction. No oral contrast was administered. No intravenous contrast was administered. Transverse, coronal, sagittal, and volume reconstruction projections were obtained. The patient's blood glucose as determined by a finger stick, was 211 mg/dl immediately prior to injection. Total CT exam dose-length product 198.97 mGy-cm * These CT images were obtained using dose optimization techniques as appropriate, variously including the following: Automated exposure control * Adjustment of mA and/or kV according to patient size (this includes techniques or standardized protocols for targeted exams where dose is matched to indication/reason for exam; i.e. extremities or head) * Use of iterative reconstruction technique COMPARISON: No previous PET/CT scan is available for comparison. MR and MRCP dated 11/17/[address] scan of the abdomen and pelvis, dated 10/27/2020, is available for comparison. Less recent CT scans are also available, including CT scan of the abdomen and pelvis dated 04/28/2013. FINDINGS: (Slice numbers described in this report are numbered superiorly to inferiorly with slice #1 in the head) NECK AND VISUALIZED HEAD: No foci of abnormal FDG activity are noted. The distribution of FDG activity is physiological. There is no cervical lymphadenopathy. There are dense calcifications of the mitral valve annulus THORAX: There are no foci of abnormal FDG activity. No pulmonary nodules are visualized. There is no pleural or pericardial fluid or pneumothorax. There is no mediastinal, supraclavicular, or axillary lymphadenopathy. ABDOMEN AND PELVIS: There is diffuse FDG activity of varying intensities throughout the gastrointestinal tract without a suspicious focal component, likely physiological. There is diverticulosis without evidence of diverticulitis. The hollow viscera are otherwise unremarkable. There are no foci of abnormal FDG activity present in the abdomen or pelvis. In particular there is no focal abnormal FDG activity in the pancreas, which has weak FDG activity and some of its portions which is significantly less intense than the liver and many loops of bowel. There are several hypodense cysts in the liver, the most prominent a 3.1 cm hypodensity posteriorly in liver Couinaud segment 7, and this is subtly photopenic on the FDG PET images.. Several additional hypodensities are present in the liver, most too small to be characterized on the FDG PET images. The liver is not changed significantly in appearance since 04/28/2013. The liver is otherwise unremarkable. The gallbladder has been resected and there are several metallic surgical clips in the gallbladder bed. The spleen is unremarkable. There are multiple calcifications in both kidneys, all probably vascular calcifications but small nonobstructing calculi cannot be ruled out. The kidneys are otherwise unremarkable. The adrenal glands are unremarkable. The pelvic organs are unremarkable. There is no retroperitoneal, mesenteric, pelvic or inguinal lymphadenopathy. MUSCULOSKELETAL: No foci of abnormal FDG activity are present in the osseous structures. There are diffuse degenerative changes in the spine but no suspicious sclerotic or lytic lesions are visualized. VASCULAR: Diffuse vascular calcifications including coronary calcifications are noted. PET/PET CT fusion skull to thigh IMPRESSION: 1. There are no FDG avid lesions suspicious for malignant lesions or metastases. 2. No definite FDG avid pancreatic lesion is visualized. 3. Multiple chronic hepatic hypodensities are likely simple cysts. None of these show abnormally increased FDG activity. 4. Diffuse vascular calcifications including coronary.
== END 2021-05-31 11:04 | disposition home or self-care (01) ==
LOC: HO.PET 11:03
PROVIDERS: PCP Family Medicine; Visit Provider Internal Medicine
DX: Z13.89 Encounter for screening for other disorder (principal)

== ENCOUNTER → 2021-06-20 06:34 | Day surgery (SDC) | payer OTHER, SELFPAY ==
--- NOTE | 2021-06-20 07:09 | MHC.MBSS ---
Malignant neoplasm of pancreas, unspecified (06/20/21)
--- NOTE | 2021-06-20 07:09 | PC.NURSE ---
pt in [facility]. text to dr. dempsey
[2021-06-20 07:23] LABS: Glucose, Whole Blood 150 mg/dL (60-115)
== END ==
PROVIDERS: PCP Family Medicine; Visit Provider Radiology Diagnostic Radiology
DX: C25.9 Malignant neoplasm of pancreas, unspecified (principal); Z53.8 Procedure and treatment not carried out for other reasons; R00.8 Other abnormalities of heart beat; R77.8 Other specified abnormalities of plasma proteins; E11.9 Type 2 diabetes mellitus without complications
CPT/HCPCS: 82947

== ENCOUNTER 2021-06-20 07:35 | Inpatient (IN) | payer OTHER, SELFPAY ==
--- NOTE | ~2021-06-20 | XR_ITS ---
EXAMINATION: XR CHEST CLINICAL INFORMATION: Chest pain COMPARISON: Chest x-ray 11/03/2020 TECHNIQUE: 2 views of the chest were obtained. FINDINGS: Cardiac silhouette is normal in size. The lungs are well aerated. There is no lobar consolidation. No pleural effusion or pneumothorax. Moderate degenerative changes of the spine. Surgical clips of the upper abdomen. XR/XR chest 2V IMPRESSION: No acute pulmonary pathology.
[2021-06-20 07:38] VITALS: BP 157/61; PULSE 88; RESP 19; TEMP 36.6; O2SAT 100; BMI 21.1
--- NOTE | 2021-06-20 08:12 | ECG_ITS ---
Test Reason : ARRYTHMIA Blood Pressure : / mmHG Vent. Rate : 081 BPM Atrial Rate : 081 BPM P-R Int : 144 ms QRS Dur : 136 ms QT Int : 470 ms P-R-T Axes : 076 065 040 degrees QTc Int : 545 ms Sinus rhythm with frequent Premature ventricular complexes Right bundle branch block Abnormal ECG When compared with ECG of 03-NOV-2020 19:03, Questionable change in QRS axis Referred By: Carlene Balderas Electronically Signed By:ALYSIA HARRIS MD
[2021-06-20 09:03] LABS: MANUAL DIFF FLAG NO
[2021-06-20 09:21] LABS: Basophils Percent Auto 0.3 % (0-2); Eosinophils Absolute Auto 0.1 X10*3/uL (0.0-0.4); Eosinophils Percent Auto 0.8 % (0-4); Hematocrit 28.5 % (37.0-47.0); Hemoglobin 9.4 g/dl (12.0-16.0); Imm Gran Abs Auto 0.03 X10*3/uL (0.00-0.03); Imm Gran Pct Auto 0.4 % (0.0-0.4); Lymphocytes Absolute Auto 1.4 X10*3/uL (1.2-4.9); Lymphocytes Percent Auto 19.1 % (20-40); Mean Corpuscular Hemoglobin 28.7 pg (27.0-33.0); Mean Corpuscular Volume 86.9 fL (80.0-98.0); Mean Platelet Volume 12.5 fL (9.4-12.3); Monocytes Absolute Auto 0.5 X10*3/uL (0.1-1.2); Monocytes Percent Auto 7.1 % (2-11); Neutrophils Absolute Auto 5.2 x10*3/uL (2.0-8.3); Neutrophils Percent Auto 72.3 % (45-73); Platelet Count 194 X10*3/uL (160-400); Red Blood Count 3.28 X10*6/uL (4.20-5.50); Red Cell Distribution Width 13.8 % (11.0-16.0); White Blood Count 7.2 X10*3/uL (4.8-10.8)
[2021-06-20 09:25] LABS: Alanine Aminotransferase 19 U/L (0-31); Albumin Level 3.2 g/dL (3.5-5.0); Alkaline Phosphatase 109 U/L (39-117); Aspartate Amino Transferase 20 U/L (5-31); Bilirubin Total 0.5 mg/dL (0.0-1.0); Blood Urea Nitrogen 32 mg/dL (9-16); Calcium 7.6 mg/dL (8.4-10.2); Creatinine Clr Calc Pharmacy 13.9; Estimated Glomerular Filt Rate 20; Glucose Random 138 mg/dL (60-115); Lipase < 4 U/L (8-78); Total Protein 5.7 g/dL (6.5-8.0)
[2021-06-20 09:28] LABS: B Type Natriuretic Peptide 377 pg/mL (<100)
[2021-06-20 09:37] LABS: Anion Gap 14 (12-20); Carbon Dioxide 16 mmol/L (22-29); Chloride 115 mmol/L (96-108); Potassium 2.8 mmol/L (3.3-5.1); Sodium 142 mmol/L (135-145)
[2021-06-20 09:39] LABS: Troponin-I High Sensitivity 173.8 ng/L (<3.5-17.0)
--- NOTE | 2021-06-20 09:54 | ED_ITS ---
HPI - Chest Pain General Chief Complaint: Arrhythmia/Palpitations Stated Complaint: numbness - from SSS Time Seen by Provider: 06/20/21 07:54 Source: patient and RN notes reviewed Mode of arrival: wheelchair Limitations: language barrier (E[place]ian-speaking emergency medical dispatcher utilized) History of Present Illness HPI narrative: Patient presents to the emergency department coming from short-stay surgery. She was there today to have a port placed for her chemotherapy treatments, due to pancreatic cancer, the procedure however was not performed. Per staff from short-stay patient was found to be having frequent PVCs, reportedly her heart rate dropped to the 30s but it is unclear what type of rhythm this was. Patient reporting generalized weakness, fatigue, upper abdominal pain, and dizziness all of which are at baseline for her, decreased p.o. intake but this is chronic. In addition intermittent numbness and tingling to the bilateral hands and feet it is unclear whether this is new. She does report that while at short-stay she was experiencing chest pain. She provides a vague history regarding this, onset was upon arrival to the hospital, during the time of my exam the chest pain had resolved. Denies headache, vision changes, neck pain, palpitations, shortness of breath, difficulty breathing, cough, nausea, vomiting, diarrhea, constipation. Related Data Home Medications Medication Instructions Recorded Confirmed lisinopril 20 mg tablet 20 mg PO BID 01/01/20 06/20/21 pantoprazole 40 mg tablet,delayed 40 mg PO BID 01/27/20 06/20/21 release (Protonix) acetaminophen 650 mg 650 mg PO Q8H PRN 05/14/20 06/20/21 tablet,extended release (Mapap Arthritis Pain) clonazepam 0.5 mg tablet 0.5 mg PO BID PRN 05/14/20 06/20/21 amlodipine 5 mg tablet 5 mg PO DAILY 05/19/21 06/20/21 aspirin 81 mg tablet,delayed 81 mg PO DAILY 05/19/21 06/20/21 release ergocalciferol (vitamin D2) 1,250 1,250 mcg PO FR 05/19/21 06/20/21 mcg (50,000 unit) capsule (Vitamin D2) loratadine 10 mg tablet (Allergy 10 mg PO DAILY 05/19/21 06/20/21 Relief (loratadine)) ferrous sulfate 325 mg (65 mg 1 tab PO BID 06/20/21 06/20/21 iron) tablet glipizide 10 mg tablet 1 tab PO BID 06/20/21 06/20/21 Previous Rx's Medication Instructions Recorded simethicone 125 mg capsule 125 mg PO BID-QID PRN #120 cap 02/22/21 oxycodone 5 mg tablet 5 mg PO Q8H PRN #30 tab 06/15/21 Allergies Allergy/AdvReac Type Severity Reaction Status Date / Time prochlorperazine Allergy Severe SEIZURE Verified 05/19/21 13:30 adhesive tape [ADHESIVE TAPE] Allergy Intermediate RASH Verified 05/19/21 13:30 latex [LATEX] Allergy Intermediate RASH Verified 05/19/21 13:30 clarithromycin Allergy Mild RASH Verified 05/19/21 13:30 hydrochlorothiazide Allergy Mild RASH Verified 05/19/21 13:30 metoclopramide [From Reglan] AdvReac Severe SEIZURES Verified 05/19/21 13:30 milk [MILK] AdvReac Intermediate GI UPSET Verified 05/19/21 13:30 ibuprofen AdvReac Unknown unknown Verified 05/19/21 13:30 BIAXIN Allergy Intermediate RASH Uncoded 05/19/21 13:30 Review of Systems Review of Systems: Constitutional: Positive generalized weakness, positive fatigue No fever, chills HEENT: No visual loss, blurred vision, double vision or yellow sclera. No hearing loss, sneezing, congestion, runny nose or sore throat. Skin: No rash or itching. Cardiovascular: No current chest pain. No palpitations or pedal edema. Respiratory: No shortness of breath, cough or sputum production. Gastrointestinal: Positive anorexia. No nausea, vomiting or diarrhea. Positive abdominal pain. No blood in stool. Genitourinary: No burning micturition. No urinary frequency or incontinence. Neurologic: Positive dizziness. Positive numbness and tingling to bilateral hands and feet. No headache, syncope, unilateral weakness, ataxia. No change in bowel or bladder control. Musculoskeletal: No muscle pain, back pain, joint pain or stiffness. Hematologic: No bleeding or bruising. Lymphatics: No enlarged lymph nodes. Endocrine: No polyuria or polydipsia. Yes all other systems are reviewed and are negative PMFSH Past Medical History Attestation statement: The following information was validated with the patient. Source: old records reviewed Medical History Anemia Arthritis Atherosclerotic cardiovascular disease CAD (coronary artery disease) Chest pain CKD (chronic kidney disease) Depression Diabetes Essential hypertension HLD (hyperlipidemia) HTN (hypertension) Precordial chest pain Surgical History History of History of esophagogastroduodenoscopy (EGD) History of hysteroscopy Hx of cholecystectomy Hx of colonoscopy Hx of eye surgery Family History Family History Father Colon cancer Myocardial infarction Mother Uterine cancer Social History Social History Alcohol intake: never Patient Tobacco Use Status: Never used Tobacco Second Hand Smoke Exposure: No Advance Directives: No Advance Directives Information Provided: No Advance Directives Date on File: 05/14/20 service: No Current occupational status: disabled Sexual orientation: Straight/Heterosexual Gender identity: Female Physical Exam Vital Signs: Vital Signs: Last Vital Signs Temp 97.7 F 06/20/21 15:54 Pulse 81 06/20/21 15:54 Resp 15 06/20/21 15:54 BP 164/77 H 06/20/21 15:54 Pulse Ox 100 06/20/21 15:54 BMI result Body Mass Index 21.1 Vital signs have been reviewed as normal and appeared to be correct. Hypertensive? Heart rate normal.? Respiration rate normal. Temperature normal.? Oxygen saturation normal. Appearance: Alert.?Oriented to person, place and time. No acute distress.?Normal affect. Eyes: Pupils equal, round and reactive to light.? ENT: Pharynx normal.?? Neck: Normal inspection.? Neck supple.?? CVS: Heart sounds normal. Normal heart rate, sinus arrhythmia with PVCs.? Pulses normal.?? Respiratory: No respiratory distress.? Lung sounds clear to auscultation bilaterally?? Abdomen: Soft diffuse abdominal tenderness with palpation. Normoactive bowel sounds. Skin: Skin warm and dry.? Normal skin color.? Extremities: No lower extremity edema.? No calf ttp? Neuro: Moves all extremities spontaneously. Sensation intact bilaterally. CN II- XII intact. No focal neuro deficits. Ambulates with slow steady gait. NIH Stroke Scale Internal: Initial- Upon Arrival Level of Consciousness: Alert Level of Consciousness Questions: Answers both questions correctly Level of Consciousness Commands: Performs both tasks correctly Best Gaze: Normal Visual: No visual loss Facial Palsy: Normal Motor Arm (Right): No drift Motor Arm (Left): No drift Motor Leg (Right): No drift Motor Leg (Left): No drift Limb Ataxia: Absent Sensory: Normal Best Language: No aphasia Dysarthia: Normal Extinction and Inattention: No abnormality Score: 0 Course Course Course Narrative: Patient is a 81-year-old female with a past medical history of pancreatic cancer, anemia, cardiomyopathy, CAD, hyperlipidemia, IBS, GERD, chronic idiopathic constipation, gastroparesis, HTN, Diabetes. She presents to the emergency department coming from short-stay surgery with multiple complaints most of which are chronic aside from reports of chest pain this morning. Will obtain CBC to evaluate for leukocytosis/ anemia, CMP and lipase to evaluate for abnormal electrolytes /abnormal renal function/ abnormal hepatic/biliary function, EKG and troponin to evaluate for ischemia/ACS. Chest x-ray to evaluate for consolidation/ infiltrate/ mass/ pulmonary congestion. Urinalysis to evaluate for infection. Reevaluation(s) Reevaluation #1: EKG reveals sinus rhythm with frequent PVCs in prolonged QTC 545, on monitor appears to be alternating between bigeminy and trigeminy, review of prior EKGs reveals similar findings, Troponin elevated 173.8. will order Aspirin 324mg PO. Hypomagnesemia 1.0, will order Mag 2 g IV, hypokalemia 2.8, potassium 10 mEq IV ordered at this time. Ordered repeat troponin and BMP at 1200. CBC reveals normocytic anemia hemoglobin 9.4 hematocrit 28.5 consistent with prior labs 06/15/2021. Chest x-ray with no acute pulmonary findings, no consolidation pleural effusion or pneumothorax Time: 09:45 Reevaluation #2: Spoke with hospitalist Dr. Martínez, who accepted patient for admission to medicine service. Updated patient and her son on plan of care and they are both agreeable for admission. Time: 10:45 [facility] - Chest Pain Medical Records Data Attestation: I reviewed the patient's medical records. Lab Data Attestation: I reviewed the patient's lab results. Result diagrams: 06/20/21 08:59 06/20/21 13:19 Labs: Lab Results 06/20/21 06/20/21 06/20/21 Range/Units 08:59 08:59 08:59 WBC 7.2 (4.8-10.8) X10*3/uL RBC 3.28 L (4.20-5.50) X10*6/uL Hgb 9.4 L (12.0-16.0) g/dl Hct 28.5 L (37.0-47.0) % MCV 86.9 (80.0-98.0) fL MCH 28.7 (27.0-33.0) pg MCHC 33.0 (31.0-35.0) g/dl RDW 13.8 (11.0-16.0) % Plt Count 194 (160-400) X10*3/uL MPV 12.5 H (9.4-12.3) fL Immature Gran % (Auto) 0.4 (0.0-0.4) % Neut % (Auto) 72.3 (45-73) % Lymph % (Auto) 19.1 L (20-40) % [place] % (Auto) 7.1 (2-11) % Eos % (Auto) 0.8 (0-4) % Baso % (Auto) 0.3 (0-2) % Lymph # (Auto) 1.4 (1.2-4.9) X10*3/uL [place] # (Auto) 0.5 (0.1-1.2) X10*3/uL Eos # (Auto) 0.1 (0.0-0.4) X10*3/uL Baso # (Auto) 0.0 (0.0-0.2) X10*3/uL Abs Immat Gran (auto) 0.03 (0.00-0.03) X10*3/uL Absolute Neuts (auto) 5.2 (2.0-8.3) x10*3/uL Absolute Nucleated RBC 0.000 (0.0-0.012) X10*3/uL Nucleated RBC % (auto) 0.0 (0.0-0.2) /100WBC Sodium 142 (135-145) mmol/L Potassium 2.8 L (3.3-5.1) mmol/L Chloride 115 H (96-108) mmol/L Carbon Dioxide 16 L (22-29) mmol/L Anion Gap 14 (12-20) BUN 32 H (9-16) mg/dL Creatinine 2.35 H (0.5-1.4) mg/dL Estim Creat Clear Calc 13.9 Estimated GFR 20 Random Glucose 138 H (60-115) mg/dL Calcium 7.6 L (8.4-10.2) mg/dL Magnesium 1.0 L* (1.6-2.6) mg/dL Total Bilirubin 0.5 (0.0-1.0) mg/dL AST 20 (5-31) U/L ALT 19 (0-31) U/L Alkaline Phosphatase 109 (39-117) U/L Troponin I High Sens 173.8 H* (<3.5-17.0) ng/L B-Natriuretic Peptide (<100) pg/mL Total Protein 5.7 L (6.5-8.0) g/dL Albumin 3.2 L (3.5-5.0) g/dL Lipase < 4 L (8-78) U/L Urine Color Urine Appearance Urine pH (5.0-8.0) Ur Specific [place] (1.005-1.025) Urine Protein (NEG-TRACE) MG/DL Urine Glucose (UA) (NEG) MG/DL Urine Ketones (NEG) MG/DL Urine Blood (NEG) Urine Nitrite (NEG) Ur Leukocyte Esterase (NEG) Urine RBC (0) /HPF Urine WBC (0-4) /HPF Ur Squamous Epith Cells /LPF Urine Bacteria /LPF 06/20/21 06/20/21 06/20/21 Range/Units 08:59 13:19 13:19 WBC (4.8-10.8) X10*3/uL RBC (4.20-5.50) X10*6/uL Hgb (12.0-16.0) g/dl Hct (37.0-47.0) % MCV (80.0-98.0) fL MCH (27.0-33.0) pg MCHC (31.0-35.0) g/dl RDW (11.0-16.0) % Plt Count (160-400) X10*3/uL MPV (9.4-12.3) fL Immature Gran % (Auto) (0.0-0.4) % Neut % (Auto) (45-73) % Lymph % (Auto) (20-40) % [place] % (Auto) (2-11) % Eos % (Auto) (0-4) % Baso % (Auto) (0-2) % Lymph # (Auto) (1.2-4.9) X10*3/uL [place] # (Auto) (0.1-1.2) X10*3/uL Eos # (Auto) (0.0-0.4) X10*3/uL Baso # (Auto) (0.0-0.2) X10*3/uL Abs Immat Gran (auto) (0.00-0.03) X10*3/uL Absolute Neuts (auto) (2.0-8.3) x10*3/uL Absolute Nucleated RBC (0.0-0.012) X10*3/uL Nucleated RBC % (auto) (0.0-0.2) /100WBC Sodium 141 (135-145) mmol/L Potassium 2.8 L (3.3-5.1) mmol/L Chloride 112 H (96-108) mmol/L Carbon Dioxide 19 L (22-29) mmol/L Anion Gap 13 (12-20) BUN 30 H (9-16) mg/dL Creatinine 2.17 H (0.5-1.4) mg/dL Estim Creat Clear Calc 15.0 Estimated GFR 22 Random Glucose 137 H (60-115) mg/dL Calcium 7.7 L (8.4-10.2) mg/dL Magnesium (1.6-2.6) mg/dL Total Bilirubin (0.0-1.0) mg/dL AST (5-31) U/L ALT (0-31) U/L Alkaline Phosphatase (39-117) U/L Troponin I High Sens 181.5 H* (<3.5-17.0) ng/L B-Natriuretic Peptide 377 H (<100) pg/mL Total Protein (6.5-8.0) g/dL Albumin (3.5-5.0) g/dL Lipase (8-78) U/L Urine Color Urine Appearance Urine pH (5.0-8.0) Ur Specific [place] (1.005-1.025) Urine Protein (NEG-TRACE) MG/DL Urine Glucose (UA) (NEG) MG/DL Urine Ketones (NEG) MG/DL Urine Blood (NEG) Urine Nitrite (NEG) Ur Leukocyte Esterase (NEG) Urine RBC (0) /HPF Urine WBC (0-4) /HPF Ur Squamous Epith Cells /LPF Urine Bacteria /LPF 06/20/21 Range/Units 13:19 WBC (4.8-10.8) X10*3/uL RBC (4.20-5.50) X10*6/uL Hgb (12.0-16.0) g/dl Hct (37.0-47.0) % MCV (80.0-98.0) fL MCH (27.0-33.0) pg MCHC (31.0-35.0) g/dl RDW (11.0-16.0) % Plt Count (160-400) X10*3/uL MPV (9.4-12.3) fL Immature Gran % (Auto) (0.0-0.4) % Neut % (Auto) (45-73) % Lymph % (Auto) (20-40) % [place] % (Auto) (2-11) % Eos % (Auto) (0-4) % Baso % (Auto) (0-2) % Lymph # (Auto) (1.2-4.9) X10*3/uL [place] # (Auto) (0.1-1.2) X10*3/uL Eos # (Auto) (0.0-0.4) X10*3/uL Baso # (Auto) (0.0-0.2) X10*3/uL Abs Immat Gran (auto) (0.00-0.03) X10*3/uL Absolute Neuts (auto) (2.0-8.3) x10*3/uL Absolute Nucleated RBC (0.0-0.012) X10*3/uL Nucleated RBC % (auto) (0.0-0.2) /100WBC Sodium (135-145) mmol/L Potassium (3.3-5.1) mmol/L Chloride (96-108) mmol/L Carbon Dioxide (22-29) mmol/L Anion Gap (12-20) BUN (9-16) mg/dL Creatinine (0.5-1.4) mg/dL Estim Creat Clear Calc Estimated GFR Random Glucose (60-115) mg/dL Calcium (8.4-10.2) mg/dL Magnesium (1.6-2.6) mg/dL Total Bilirubin (0.0-1.0) mg/dL AST (5-31) U/L ALT (0-31) U/L Alkaline Phosphatase (39-117) U/L Troponin I High Sens (<3.5-17.0) ng/L B-Natriuretic Peptide (<100) pg/mL Total Protein (6.5-8.0) g/dL Albumin (3.5-5.0) g/dL Lipase (8-78) U/L Urine Color STRAW Urine Appearance HAZY Urine pH 6.0 (5.0-8.0) Ur Specific [place] 1.010 (1.005-1.025) Urine Protein TRACE (NEG-TRACE) MG/DL Urine Glucose (UA) NEG (NEG) MG/DL Urine Ketones NEG (NEG) MG/DL Urine Blood TRACE (NEG) Urine Nitrite NEG (NEG) Ur Leukocyte Esterase NEG (NEG) Urine RBC 0-2 (0) /HPF Urine WBC 0-2 (0-4) /HPF Ur Squamous Epith Cells TRACE /LPF Urine Bacteria NONE /LPF Imaging Data Chest x-ray: Radiologist's impression: FINDINGS: Cardiac silhouette is normal in size. The lungs are well aerated. There is no lobar consolidation. No pleural effusion or pneumothorax. Moderate degenerative changes of the spine. Surgical clips of the upper abdomen. XR/XR chest 2V IMPRESSION: No acute pulmonary pathology. ECG Data ECG #1: Attestation: I personally reviewed and interpreted this ECG as follows: ECG interpretation date: 06/20/21 ECG interpretation time: 08:45 Prior ECG tracings: available for review Interpretation: Rate: 80 Rhythm:? Sinus rhythm, frequent PVCs, right bundle-branch block [place]:? Normal Normal P waves.? Normal CHERYL.?? Normal QRS complex.?? ST T wave :??No ST elevation, no ST depression, no T-wave inversion qTC: Prolonged, 545 prior studies:? October 2020 The study has been interpreted contemporaneously by me. Discharge Plan Discharge Clinical Impression: Acute hypokalemia, Hypomagnesemia, Elevated troponin Patient Disposition: Admitted As Inpatient
[2021-06-20] MEDS: Aspirin 81 MG TAB.CHEW 324 MG PO (09:57)
[2021-06-20] MEDS: Magnesium Sulfate/H2O 2 GM/50 ML PIGGYBACK IV (09:57)
[2021-06-20 10:00] VITALS: PULSE 78; RESP 19; O2SAT 97
[2021-06-20 10:02] VITALS: BP 166/51
[2021-06-20 11:50] VITALS: BP 151/63; PULSE 64; RESP 12; TEMP 36.8; O2SAT 95
[2021-06-20] MEDS: Potassium Chloride/H20 10 MEQ/100 ML PIGGYBACK 100 MEQ IV (11:54)
[2021-06-20 13:45] LABS: Appearance Urine HAZY; Color Urine STRAW; Glucose Urine UA NEG (NEG); Leukocyte Esterase Urine NEG (NEG); Nitrite Urine NEG (NEG); UACC Culture Trigger NO; Urine Blood TRACE (NEG); Urine Ketones NEG (NEG); Urine Protein TRACE MG/DL (NEG-TRACE)
[2021-06-20 13:53] LABS: Anion Gap 13 (12-20); Blood Urea Nitrogen 30 mg/dL (9-16); Calcium 7.7 mg/dL (8.4-10.2); Carbon Dioxide 19 mmol/L (22-29); Chloride 112 mmol/L (96-108); Estimated Glomerular Filt Rate 22; Glucose Random 137 mg/dL (60-115); Potassium 2.8 mmol/L (3.3-5.1); Sodium 141 mmol/L (135-145)
[2021-06-20 13:54] LABS: Squamous Epithelial Cell Urine TRACE /LPF
[2021-06-20 13:55] LABS: WBC Urine 0-2 /HPF (0-4)
[2021-06-20 13:56] LABS: RBC Urine 0-2 /HPF (0)
[2021-06-20 14:04] LABS: Troponin-I High Sensitivity 181.5 ng/L (<3.5-17.0)
--- NOTE | 2021-06-20 14:12 | PM.IMHP ---
History of Present Illness Date of Service: 06/20/21 Chief Complaint: Abnormal labs 81 year old women brought to the emergency room from short-stay. She was having a port placed for knee she of chemotherapy secondary to pancreatic cancer. In short-stay she was having frequent PVCs and at 1 point her heart rate dropped to 30. Patient reported that since her diagnosis she has had very poor appetite and has lost a significant amount of weight. She reported over the last couple of days she has been feeling very fatigued and weak. This morning and she was having some shortness of breath, weakness and chest pain. While in short-stay she developed numbness and tingling to her hands and feet. She was found to have multiple electrolyte abnormalities including potassium 2.8, magnesium 1.0. EKG showed bigeminy with heart rate in the 80s. Troponin 173.8, 181.5 with no complaints of active chest pain. She was given a dose of IV magnesium, potassium and aspirin. she be admitted for further management and treatment of electrolyte abnormalities Review of Systems Review of Systems: Denies any recent fever chills or decrease in appetite respiratory denies any shortness of breath coverage production cardiovascular Denies chest pain gastrointestinal denies any dysphagia abdominal pain nausea vomiting or diarrhea genitourinary denies any dysuria frequency or hematuria musculoskeletal denies any joint pain or swelling neuropsych denies any weakness or seizures all other systems reviewed are negative [facility] Medical History Anemia Arthritis Atherosclerotic cardiovascular disease CAD (coronary artery disease) Chest pain CKD (chronic kidney disease) Depression Diabetes Essential hypertension HLD (hyperlipidemia) HTN (hypertension) Precordial chest pain Family History Father Colon cancer Myocardial infarction Mother Uterine cancer Surgical History History of History of esophagogastroduodenoscopy (EGD) History of hysteroscopy Hx of cholecystectomy Hx of colonoscopy Hx of eye surgery Social History Alcohol intake: never Patient Tobacco Use Status: Never used Tobacco Second Hand Smoke Exposure: No Advance Directives: No Advance Directives Information Provided: No Advance Directives Date on File: 05/14/20 service: No Current occupational status: disabled Sexual orientation: Straight/Heterosexual Gender identity: Female Meds Allergies Allergy/AdvReac Type Severity Reaction Status Date / Time prochlorperazine Allergy Severe SEIZURE Verified 05/19/21 13:30 adhesive tape [ADHESIVE TAPE] Allergy Intermediate RASH Verified 05/19/21 13:30 latex [LATEX] Allergy Intermediate RASH Verified 05/19/21 13:30 clarithromycin Allergy Mild RASH Verified 05/19/21 13:30 hydrochlorothiazide Allergy Mild RASH Verified 05/19/21 13:30 metoclopramide [From Reglan] AdvReac Severe SEIZURES Verified 05/19/21 13:30 milk [MILK] AdvReac Intermediate GI UPSET Verified 05/19/21 13:30 ibuprofen AdvReac Unknown unknown Verified 05/19/21 13:30 BIAXIN Allergy Intermediate RASH Uncoded 05/19/21 13:30 Active Medications: Current Medications Acetaminophen (Acetaminophen 325 Mg Tablet) 650 mg PO Q6H PRN PRN Reason: Pain, Mild (Pain Scale 1-3) Dextrose (Dextrose 50 % 25 Gm/50 Ml Syringe) 25 gm IVPUSH Q15M PRN; Protocol PRN Reason: per Hypoglycemia Standing Ord. Docusate Sodium (Docusate Sodium 100 Mg Capsule) 100 mg PO BID [facility] Glucose (Glucose Gel 15 Gm Gel..Gram.) 15 gm PO Q15M PRN; Protocol PRN Reason: per Hypoglycemia Standing Ord. Heparin Sodium (Porcine) (Heparin Sodium,Porcine 5,000 Unit/Ml Vial) 5,000 unit SUBCUT Q12H [facility] Insulin Human Lispro (Insulin Lispro 100 Unit/Ml 3 Ml Vial) 0 unit SUBCUT QIDACHS [facility]; Protocol Pharmacy Consult (Consult Rx Perform Med Rec) 1 each MISCELLANE ONCE PRN PRN Reason: Consult order Sodium Chloride (0.9 % Sodium Chloride Flush 3 Ml Syringe) 3 ml IVFLUSH [facility] Home Medications Medication Instructions Recorded Confirmed Last Taken Type lisinopril 20 mg tablet 20 mg PO BID 01/01/20 06/20/21 06/19/21 History pantoprazole 40 mg tablet,delayed 40 mg PO BID 01/27/20 06/20/21 06/19/21 History release (Protonix) acetaminophen 650 mg 650 mg PO Q8H PRN 05/14/20 06/20/21 06/19/21 History tablet,extended release (Mapap Arthritis Pain) clonazepam 0.5 mg tablet 0.5 mg PO BID PRN 05/14/20 06/20/21 06/19/21 History amlodipine 5 mg tablet 5 mg PO DAILY 05/19/21 06/20/21 06/19/21 History aspirin 81 mg tablet,delayed 81 mg PO DAILY 05/19/21 06/20/21 06/19/21 History release ergocalciferol (vitamin D2) 1,250 1,250 mcg PO FR 05/19/21 06/20/21 06/19/21 History mcg (50,000 unit) capsule (Vitamin D2) loratadine 10 mg tablet (Allergy 10 mg PO DAILY 05/19/21 06/20/21 06/19/21 History Relief (loratadine)) ferrous sulfate 325 mg (65 mg 1 tab PO BID 06/20/21 06/20/21 06/19/21 History iron) tablet glipizide 10 mg tablet 1 tab PO BID 06/20/21 06/20/21 06/19/21 History Physical Exam Vital Signs and Narrative: Vital Signs: Last Vital Signs Temp 98.3 F 06/20/21 11:50 Pulse 64 06/20/21 11:50 Resp 12 06/20/21 11:50 BP 151/63 H 06/20/21 11:50 Pulse Ox 95 06/20/21 11:50 BMI result Body Mass Index 21.1 Appearing in no acute distress head is normocephalic atraumatic eyes pupils are PERRLA sclera is anicteric mouth throat mucous membranes are intact and moist neck is supple no lymphadenopathy, no JVD noted lung sounds are clear to auscultation heart regular rate rhythm, clear S1, S2 positive bowel sounds, abdomen is soft, nontender neuro patient is alert x3, no focal deficits Results Labs CBC and Chem 7: 06/20/21 08:59 06/20/21 13:19 Labs: Laboratory Results - last 24 hr 06/20/21 06/20/21 06/20/21 08:59 08:59 08:59 MCV 86.9 MCH 28.7 MCHC 33.0 RDW 13.8 Plt Count 194 MPV 12.5 H Immature Gran % (Auto) 0.4 Neut % (Auto) 72.3 Lymph % (Auto) 19.1 L [place] % (Auto) 7.1 Eos % (Auto) 0.8 Baso % (Auto) 0.3 Lymph # (Auto) 1.4 [place] # (Auto) 0.5 Eos # (Auto) 0.1 Baso # (Auto) 0.0 Abs Immat Gran (auto) 0.03 Absolute Neuts (auto) 5.2 Absolute Nucleated RBC 0.000 Nucleated RBC % (auto) 0.0 Anion Gap 14 Estim Creat Clear Calc 13.9 Estimated GFR 20 Random Glucose 138 H Calcium 7.6 L Magnesium 1.0 L* Total Bilirubin 0.5 AST 20 ALT 19 Alkaline Phosphatase 109 Troponin I High Sens 173.8 H* B-Natriuretic Peptide Total Protein 5.7 L Albumin 3.2 L Lipase < 4 L Urine Color Urine Appearance Urine pH Ur Specific [place] Urine Protein Urine Glucose (UA) Urine Ketones Urine Blood Urine Nitrite Ur Leukocyte Esterase Urine RBC Urine WBC Ur Squamous Epith Cells Urine Bacteria 06/20/21 06/20/21 06/20/21 08:59 13:19 13:19 MCV MCH MCHC RDW Plt Count MPV Immature Gran % (Auto) Neut % (Auto) Lymph % (Auto) [place] % (Auto) Eos % (Auto) Baso % (Auto) Lymph # (Auto) [place] # (Auto) Eos # (Auto) Baso # (Auto) Abs Immat Gran (auto) Absolute Neuts (auto) Absolute Nucleated RBC Nucleated RBC % (auto) Anion Gap 13 Estim Creat Clear Calc 15.0 Estimated GFR 22 Random Glucose 137 H Calcium 7.7 L Magnesium Total Bilirubin AST ALT Alkaline Phosphatase Troponin I High Sens 181.5 H* B-Natriuretic Peptide 377 H Total Protein Albumin Lipase Urine Color Urine Appearance Urine pH Ur Specific [place] Urine Protein Urine Glucose (UA) Urine Ketones Urine Blood Urine Nitrite Ur Leukocyte Esterase Urine RBC Urine WBC Ur Squamous Epith Cells Urine Bacteria 06/20/21 13:19 MCV MCH MCHC RDW Plt Count MPV Immature Gran % (Auto) Neut % (Auto) Lymph % (Auto) [place] % (Auto) Eos % (Auto) Baso % (Auto) Lymph # (Auto) [place] # (Auto) Eos # (Auto) Baso # (Auto) Abs Immat Gran (auto) Absolute Neuts (auto) Absolute Nucleated RBC Nucleated RBC % (auto) Anion Gap Estim Creat Clear Calc Estimated GFR Random Glucose Calcium Magnesium Total Bilirubin AST ALT Alkaline Phosphatase Troponin I High Sens B-Natriuretic Peptide Total Protein Albumin Lipase Urine Color STRAW Urine Appearance HAZY Urine pH 6.0 Ur Specific [place] 1.010 Urine Protein TRACE Urine Glucose (UA) NEG Urine Ketones NEG Urine Blood TRACE Urine Nitrite NEG Ur Leukocyte Esterase NEG Urine RBC 0-2 Urine WBC 0-2 Ur Squamous Epith Cells TRACE Urine Bacteria NONE Imaging Radiologist's Impressions: Impressions Chest X-Ray 06/20/21 08:30 IMPRESSION: No acute pulmonary pathology. Assessment and Plan (1) Pancreatic cancer: Status: Acute Plan 81 year old women admitted with multiple lab abnormalities after being brought to the ED from short stay where she was having a port placed Hypomagnesemia, Hypokalemia repeleted in the ED Trend Elevated trop no chest pain no ischemic changes on EKG trend troponin Cardiology to follow up THERON on CKD 4 Trending down Diabetes sliding scale ADA diet Hypertension Stable blood pressure continue home medications Normocytic anemia no bleeding follow Mental health continue home medications DVT prophylaxis with heparin Attending Dr. Martínez Full code Quality Stroke Does the patient have a stroke diagnosis?: No VTE Prior VTE?: No VTE Risk Level:: Medical - moderate - high VTE Device Contraindication: Treatment Not Indicated VTE Drug Contraindication: N/A - Med Ordered
--- NOTE | 2021-06-20 14:40 | PHA.MEDREC ---
Pharmacy Consult ? Medication Reconciliation Pharmacy has completed the medication reconciliation. Spoke to patient who knew all medications. She said she is not talking tolterodine and was very confident in her answer.
[2021-06-20] MEDS: Heparin Sodium,Porcine 5,000 UNIT/ML VIAL 5000 UNIT SUBCUT (14:42)
[2021-06-20 14:44] VITALS: BP 157/59; PULSE 88; RESP 15; TEMP 36.8; O2SAT 95
[2021-06-20 15:09] LABS: COVID-19 Test Negative (Negative); IDNOW Serial# 16C4AD1C
[2021-06-20 15:54] VITALS: BP 164/77; PULSE 81; RESP 15; TEMP 36.5; O2SAT 100
[2021-06-20 16:52] LABS: Glucose, Whole Blood 223 mg/dL (60-115)
[2021-06-20] MEDS: 0.9 % Sodium Chloride Flush 3 ML SYRINGE IVFLUSH (17:23)
[2021-06-20] MEDS: Lactated Ringers 1,000 ML 100 ML IVCONT (17:45)
[2021-06-20] MEDS: Acetaminophen 325 MG TABLET 650 MG PO (21:21)
[2021-06-20 22:46] LABS: Glucose, Whole Blood 226 mg/dL (60-115)
[2021-06-20] MEDS: Insulin Lispro 100 UNIT/ML 3 ML VIAL SUBCUT (22:53)
[2021-06-20] MEDS: Docusate Sodium 100 MG CAPSULE PO (22:54)
[2021-06-21] VITALS (8 sets, daily range): BP systolic 112–190; BP diastolic 64–86; PULSE 62–86; RESP 18–20; TEMP 36.3–36.9; O2SAT 97–100; BMI 21.1
[2021-06-21] MEDS: Heparin Sodium,Porcine 5,000 UNIT/ML VIAL 5000 UNIT SUBCUT ×2 (03:51→13:18)
--- NOTE | 2021-06-21 04:39 | PC.NURSE ---
Patient's VSS, ambulated to BR with 1 standby assist. Steady gait. Will continue to monitor.
[2021-06-21 07:25] LABS: Glucose, Whole Blood 109 mg/dL (60-115)
[2021-06-21 07:35] LABS: MANUAL DIFF FLAG NO
[2021-06-21 07:41] LABS: Basophils Percent Auto 0.6 % (0-2); Eosinophils Absolute Auto 0.1 X10*3/uL (0.0-0.4); Eosinophils Percent Auto 2.1 % (0-4); Hematocrit 29.8 % (37.0-47.0); Hemoglobin 10.2 g/dl (12.0-16.0); Imm Gran Abs Auto 0.02 X10*3/uL (0.00-0.03); Imm Gran Pct Auto 0.3 % (0.0-0.4); Lymphocytes Absolute Auto 1.2 X10*3/uL (1.2-4.9); Lymphocytes Percent Auto 18.3 % (20-40); Mean Corpuscular HGB Conc 34.2 g/dl (31.0-35.0); Mean Corpuscular Hemoglobin 28.7 pg (27.0-33.0); Mean Corpuscular Volume 83.7 fL (80.0-98.0); Mean Platelet Volume 12.6 fL (9.4-12.3); Monocytes Absolute Auto 0.6 X10*3/uL (0.1-1.2); Monocytes Percent Auto 9.4 % (2-11); Neutrophils Absolute Auto 4.7 x10*3/uL (2.0-8.3); Neutrophils Percent Auto 69.3 % (45-73); Platelet Count 218 X10*3/uL (160-400); Red Blood Count 3.56 X10*6/uL (4.20-5.50); Red Cell Distribution Width 13.6 % (11.0-16.0); White Blood Count 6.7 X10*3/uL (4.8-10.8)
[2021-06-21 08:19] LABS: Troponin-I High Sensitivity 198.7 ng/L (<3.5-17.0)
[2021-06-21 08:33] LABS: Anion Gap 14 (12-20); Blood Urea Nitrogen 28 mg/dL (9-16); Calcium 8.2 mg/dL (8.4-10.2); Carbon Dioxide 20 mmol/L (22-29); Chloride 112 mmol/L (96-108); Estimated Glomerular Filt Rate 27; Glucose Random 107 mg/dL (60-115); Potassium 2.7 mmol/L (3.3-5.1); Sodium 143 mmol/L (135-145)
[2021-06-21 09:02] LABS: Magnesium 1.3 mg/dL (1.6-2.6)
--- NOTE | 2021-06-21 09:24 | MHC.CM.PN ---
CM attempted to meet with Patient at bedside, who appeared to be sleeping soundly;CM spoke with Son/HCP/Only listed Contact/Andrei at [phone] and addressed IMM with him (original will be mailed certified letter to him and a copy placed on the chart). Patient lives in an apartment with her Daughter/HCP and required no DME nor services NEGATIVE CHECKER. Home/no services is the goal for dc and CM has initiated and will follow for dc planning. PCP is from [facility] and Andrei was not sure of Patient's Covid vax status.
[2021-06-21] MEDS: Potassium Chloride ER 20 MEQ TAB.ER.PRT 40 MEQ PO ×2 (09:53→17:48)
[2021-06-21] MEDS: Docusate Sodium 100 MG CAPSULE PO ×2 (09:53→20:20)
[2021-06-21] MEDS: Magnesium Sulfate/H2O 2 GM/50 ML PIGGYBACK IV (10:14)
--- NOTE | 2021-06-21 10:57 | HO.PM.IMPN ---
Subjective Subjective Date of Service: 06/21/21 Review of Systems Follow up electrolyte abnomrlaities Feeling fine, but cold and requesting a new room out of the obs unit Physical Exam Vital Signs: Vital Signs: Last Vital Signs Temp 98.2 F 06/21/21 09:07 Pulse 86 06/21/21 09:07 Resp 18 06/21/21 09:07 BP 190/75 H 06/21/21 09:07 Pulse Ox 99 06/21/21 09:07 BMI result Body Mass Index 21.1 Appearing in no acute distress lung sounds are clear to auscultation heart regular rate rhythm, clear S1, S2 positive bowel sounds, abdomen is soft, nontender neuro patient is alert x3, no focal deficits Objective Data Active Medications Acetaminophen (Acetaminophen 325 Mg Tablet) 650 mg PO Q6H PRN PRN Reason: Pain, Mild (Pain Scale 1-3) Last Admin: 06/20/21 21:21 Dose: 650 mg Documented by: MIRIAM Dextrose (Dextrose 50 % 25 Gm/50 Ml Syringe) 25 gm IVPUSH Q15M PRN; Protocol PRN Reason: per Hypoglycemia Standing Ord. Docusate Sodium (Docusate Sodium 100 Mg Capsule) 100 mg PO BID DAVID Last Admin: 06/21/21 09:53 Dose: 100 mg Documented by: RAMESH Glucose (Glucose Gel 15 Gm Gel..Gram.) 15 gm PO Q15M PRN; Protocol PRN Reason: per Hypoglycemia Standing Ord. Heparin Sodium (Porcine) (Heparin Sodium,Porcine 5,000 Unit/Ml Vial) 5,000 unit SUBCUT Q12H [facility] Last Admin: 06/21/21 03:51 Dose: 5,000 unit Documented by: MIRIAM Lactated Ringer's (Lr) 1,000 mls @ 100 mls/hr IVCONT .Q10H [facility] Last Infusion: 06/21/21 10:22 Dose: 0 mls/hr Documented by: RAMESH Magnesium Sulfate (Magnesium Sulfate/H2o) 2 gm in 50 mls @ 25 mls/hr IV ONCE ONE Stop: 06/21/21 11:43 Last Admin: 06/21/21 10:14 Dose: 25 mls/hr Documented by: RAMESH Insulin Human Lispro (Insulin Lispro 100 Unit/Ml 3 Ml Vial) 0 unit SUBCUT QIDACHS [facility]; Protocol Last Admin: 06/21/21 08:32 Dose: Not Given Documented by: RAMESH Non-Admin Reason: No Insulin Coverage Pharmacy Consult (Consult Rx Perform Med Rec) 1 each MISCELLANE ONCE PRN PRN Reason: Consult order Sodium Chloride (0.9 % Sodium Chloride Flush 3 Ml Syringe) 3 ml IVFLUSH QSHIFT [facility] Last Admin: 06/21/21 08:33 Dose: Not Given Documented by: RAMESH Non-Admin Reason: IV Running Labs CBC & Chem 7: 06/21/21 06:56 06/21/21 06:56 Labs: Laboratory Results - last 24 hr 06/20/21 06/20/21 06/20/21 13:19 13:19 13:19 MCV MCH MCHC RDW Plt Count MPV Immature Gran % (Auto) Neut % (Auto) Lymph % (Auto) [place] % (Auto) Eos % (Auto) Baso % (Auto) Lymph # (Auto) [place] # (Auto) Eos # (Auto) Baso # (Auto) Abs Immat Gran (auto) Absolute Neuts (auto) Absolute Nucleated RBC Nucleated RBC % (auto) Anion Gap 13 Estim Creat Clear Calc 15.0 Estimated GFR 22 POC Glucose Random Glucose 137 H Calcium 7.7 L Magnesium Troponin I High Sens 181.5 H* Urine Color STRAW Urine Appearance HAZY Urine pH 6.0 Ur Specific [place] 1.010 Urine Protein TRACE Urine Glucose (UA) NEG Urine Ketones NEG Urine Blood TRACE Urine Nitrite NEG Ur Leukocyte Esterase NEG Urine RBC 0-2 Urine WBC 0-2 Ur Squamous Epith Cells TRACE Urine Bacteria NONE COVID-19 (SELENE) COVID-19 Clin Com 06/20/21 06/20/21 06/20/21 14:35 16:43 22:42 MCV MCH MCHC RDW Plt Count MPV Immature Gran % (Auto) Neut % (Auto) Lymph % (Auto) [place] % (Auto) Eos % (Auto) Baso % (Auto) Lymph # (Auto) [place] # (Auto) Eos # (Auto) Baso # (Auto) Abs Immat Gran (auto) Absolute Neuts (auto) Absolute Nucleated RBC Nucleated RBC % (auto) Anion Gap Estim Creat Clear Calc Estimated GFR POC Glucose 223 H 226 H Random Glucose Calcium Magnesium Troponin I High Sens Urine Color Urine Appearance Urine pH Ur Specific [place] Urine Protein Urine Glucose (UA) Urine Ketones Urine Blood Urine Nitrite Ur Leukocyte Esterase Urine RBC Urine WBC Ur Squamous Epith Cells Urine Bacteria COVID-19 (SELENE) Negative COVID-19 Clin Com See Note 06/21/21 06/21/21 06/21/21 06:56 06:56 06:56 MCV 83.7 MCH 28.7 MCHC 34.2 RDW 13.6 Plt Count 218 MPV 12.6 H Immature Gran % (Auto) 0.3 Neut % (Auto) 69.3 Lymph % (Auto) 18.3 L [place] % (Auto) 9.4 Eos % (Auto) 2.1 Baso % (Auto) 0.6 Lymph # (Auto) 1.2 Bound[place] # (Auto) 0.6 Eos # (Auto) 0.1 Baso # (Auto) 0.0 Abs Immat Gran (auto) 0.02 Absolute Neuts (auto) 4.7 Absolute Nucleated RBC 0.000 Nucleated RBC % (auto) 0.0 Anion Gap 14 Estim Creat Clear Calc 18.0 Estimated GFR 27 POC Glucose Random Glucose 107 Calcium 8.2 L D Magnesium Cancelled 1.3 L* Troponin I High Sens Urine Color Urine Appearance Urine pH Ur Specific [place] Urine Protein Urine Glucose (UA) Urine Ketones Urine Blood Urine Nitrite Ur Leukocyte Esterase Urine RBC Urine WBC Ur Squamous Epith Cells Urine Bacteria COVID-19 (SELENE) COVID-19 [employer] Com 06/21/21 06/21/21 06:56 07:12 MCV MCH MCHC RDW Plt Count MPV Immature Gran % (Auto) Neut % (Auto) Lymph % (Auto) [place] % (Auto) Eos % (Auto) Baso % (Auto) Lymph # (Auto) [place] # (Auto) Eos # (Auto) Baso # (Auto) Abs Immat Gran (auto) Absolute Neuts (auto) Absolute Nucleated RBC Nucleated RBC % (auto) Anion Gap Estim Creat Clear Calc Estimated GFR POC Glucose 109 Random Glucose Calcium Magnesium Troponin I High Sens 198.7 H* Urine Color Urine Appearance Urine pH Ur Specific [place] Urine Protein Urine Glucose (UA) Urine Ketones Urine Blood Urine Nitrite Ur Leukocyte Esterase Urine RBC Urine WBC Ur Squamous Epith Cells Urine Bacteria COVID-19 (SELENE) COVID-19 Clin Com Assessment and Plan (1) Pancreatic cancer: Status: Acute Plan 81 year old women admitted with multiple lab abnormalities after being brought to the ED from short stay where she was having a port placed Hypomagnesemia, Hypokalemia Continues to be low replete and trend enourage oral intake Elevated trop no chest pain no ischemic changes on EKG trend troponin Cardiology to follow up THERON on CKD 4, likely secondary dehydration Trending down Diabetes sliding scale ADA diet Hypertension Stable blood pressure continue home medications Normocytic anemia, chronic no bleeding follow Mental health continue home medications DVT prophylaxis with heparin Attending Dr. Greenberg Full code Patient requires continued hospitalization for frequent electrolyte monitoring and repletion of electrolyte abnormalities Quality Stroke Does the patient have a stroke diagnosis?: No VTE Prior VTE?: No VTE Risk Level:: Medical - moderate - high VTE Device Contraindication: Treatment Not Indicated VTE Drug Contraindication: N/A - Med Ordered
[2021-06-21] MEDS: Insulin Lispro 100 UNIT/ML 3 ML VIAL SUBCUT ×3 (12:00→20:20)
[2021-06-21 12:15] LABS: Glucose, Whole Blood 184 mg/dL (60-115)
[2021-06-21] MEDS: Lactated Ringers 1,000 ML 100 ML IVCONT ×2 (13:18→23:00)
[2021-06-21 13:27] LABS: Anion Gap 14 (12-20); Blood Urea Nitrogen 26 mg/dL (9-16); Calcium 7.6 mg/dL (8.4-10.2); Carbon Dioxide 19 mmol/L (22-29); Chloride 108 mmol/L (96-108); Creatinine Clr Calc Pharmacy 18.9; Estimated Glomerular Filt Rate 28; Glucose Random 196 mg/dL (60-115); Potassium 3.1 mmol/L (3.3-5.1); Sodium 138 mmol/L (135-145)
--- NOTE | 2021-06-21 14:34 | P.CONCA_ITS ---
History of Present Illness History of Present Illness Date of Service: 06/21/21 Chief complaint: electrolyte abnormalities, elevated troponin Narrative: 81-year-old female with pancreatic cancer. She is admitted for abdominal pain and constipation. We have been asked to comment about her troponin levels. She has significant electrolyte abnormalities. She also has chronic kidney disease. She is denying any chest pain or shortness of breath. High sensitivity troponin levels are mildly abnormal and flat. She has no cardiovascular symptoms right now. Electrolytes are being repleted. She had PVCs on EKGs with prolonged QT due to electrolyte issues. [facility] Past Medical History Medical History Anemia Arthritis Atherosclerotic cardiovascular disease CAD (coronary artery disease) Chest pain CKD (chronic kidney disease) Depression Diabetes Essential hypertension HLD (hyperlipidemia) HTN (hypertension) Precordial chest pain Family History Family History Father Colon cancer Myocardial infarction Mother Uterine cancer Surgical History Surgical History History of History of esophagogastroduodenoscopy (EGD) History of hysteroscopy Hx of cholecystectomy Hx of colonoscopy Hx of eye surgery Social History Social History Household Members: Children Housing: Apartment Alcohol intake: never Patient Tobacco Use Status: Never used Tobacco Second Hand Smoke Exposure: No Advance Directives Date on File: 05/14/20 service: No Current occupational status: disabled Sexual orientation: Straight/Heterosexual Gender identity: Female Meds Allergies Allergy/AdvReac Type Severity Reaction Status Date / Time prochlorperazine Allergy Severe SEIZURE Verified 05/19/21 13:30 adhesive tape [ADHESIVE TAPE] Allergy Intermediate RASH Verified 05/19/21 13:30 latex [LATEX] Allergy Intermediate RASH Verified 05/19/21 13:30 clarithromycin Allergy Mild RASH Verified 05/19/21 13:30 hydrochlorothiazide Allergy Mild RASH Verified 05/19/21 13:30 metoclopramide [From Reglan] AdvReac Severe SEIZURES Verified 05/19/21 13:30 milk [MILK] AdvReac Intermediate GI UPSET Verified 05/19/21 13:30 ibuprofen AdvReac Unknown unknown Verified 05/19/21 13:30 BIAXIN Allergy Intermediate RASH Uncoded 05/19/21 13:30 Active Medications: Current Medications Acetaminophen (Acetaminophen 325 Mg Tablet) 650 mg PO Q6H PRN PRN Reason: Pain, Mild (Pain Scale 1-3) Last Admin: 06/20/21 21:21 Dose: 650 mg Documented by: Dextrose (Dextrose 50 % 25 Gm/50 Ml Syringe) 25 gm IVPUSH Q15M PRN; Protocol PRN Reason: per Hypoglycemia Standing Ord. Docusate Sodium (Docusate Sodium 100 Mg Capsule) 100 mg PO BID [facility] Last Admin: 06/21/21 09:53 Dose: 100 mg Documented by: Glucose (Glucose Gel 15 Gm Gel..Gram.) 15 gm PO Q15M PRN; Protocol PRN Reason: per Hypoglycemia Standing Ord. Heparin Sodium (Porcine) (Heparin Sodium,Porcine 5,000 Unit/Ml Vial) 5,000 unit SUBCUT Q12H [facility] Last Admin: 06/21/21 13:18 Dose: 5,000 unit Documented by: Lactated Ringer's (Lr) 1,000 mls @ 100 mls/hr IVCONT .Q10H [facility] Last Admin: 06/21/21 13:18 Dose: 100 mls/hr Documented by: Insulin Human Lispro (Insulin Lispro 100 Unit/Ml 3 Ml Vial) 0 unit SUBCUT QIDACHS [facility]; Protocol Last Admin: 06/21/21 12:00 Dose: 2 unit Documented by: Pharmacy Consult (Consult Rx Perform Med Rec) 1 each MISCELLANE ONCE PRN PRN Reason: Consult order Sodium Chloride (0.9 % Sodium Chloride Flush 3 Ml Syringe) 3 ml IVFLUSH QSHIFT [facility] Last Admin: 06/21/21 08:33 Dose: Not Given Documented by: Home Medications Medication Instructions Recorded Confirmed Last Taken Type lisinopril 20 mg tablet 20 mg PO BID 01/01/20 06/20/21 06/19/21 History pantoprazole 40 mg tablet,delayed 40 mg PO BID 01/27/20 06/20/21 06/19/21 History release (Protonix) acetaminophen 650 mg 650 mg PO Q8H PRN 05/14/20 06/20/21 06/19/21 History tablet,extended release (Mapap Arthritis Pain) clonazepam 0.5 mg tablet 0.5 mg PO BID PRN 05/14/20 06/20/21 06/19/21 History amlodipine 5 mg tablet 5 mg PO DAILY 05/19/21 06/20/21 06/19/21 History aspirin 81 mg tablet,delayed 81 mg PO DAILY 05/19/21 06/20/21 06/19/21 History release ergocalciferol (vitamin D2) 1,250 1,250 mcg PO FR 05/19/21 06/20/21 06/19/21 History mcg (50,000 unit) capsule (Vitamin D2) loratadine 10 mg tablet (Allergy 10 mg PO DAILY 05/19/21 06/20/21 06/19/21 History Relief (loratadine)) ferrous sulfate 325 mg (65 mg 1 tab PO BID 06/20/21 06/20/21 06/19/21 History iron) tablet glipizide 10 mg tablet 1 tab PO BID 06/20/21 06/20/21 06/19/21 History Physical Exam Vital Signs: Vital Signs: Last Vital Signs Temp 97.4 F 06/21/21 12:00 Pulse 84 06/21/21 12:00 Resp 18 06/21/21 12:00 BP 188/79 H 06/21/21 12:00 Pulse Ox 97 06/21/21 12:00 BMI result Body Mass Index 21.1 GENERAL APPEARANCE: in no acute distress, pleasant. NECK: no carotid bruit, no jugular venous distention. SKIN: no suspicious lesions, warm and dry. HEART: no murmurs, regular rate and rhythm. LUNGS: clear to auscultation bilaterally. ABDOMEN: soft, nontender. EXTREMITIES: no edema. PERIPHERAL PULSES: equal. NEUROLOGIC: No gross deficits, AAO X 3 Objective Labs and Meds Result diagrams: 06/21/21 06:56 06/21/21 12:52 Lab results: Laboratory Results - last 24 hr 06/20/21 06/20/21 06/20/21 14:35 16:43 22:42 WBC RBC Hgb Hct MCV MCH MCHC RDW Plt Count MPV Immature Gran % (Auto) Neut % (Auto) Lymph % (Auto) [place] % (Auto) Eos % (Auto) Baso % (Auto) Lymph # (Auto) [place] # (Auto) Eos # (Auto) Baso # (Auto) Abs Immat Gran (auto) Absolute Neuts (auto) Absolute Nucleated RBC Nucleated RBC % (auto) Sodium Potassium Chloride Carbon Dioxide Anion Gap BUN Creatinine Estim Creat Clear Calc Estimated GFR POC Glucose 223 H 226 H Random Glucose Calcium Magnesium Troponin I High Sens COVID-19 (SELENE) Negative COVID-19 Clin Com See Note 06/21/21 06/21/21 06/21/21 06:56 06:56 06:56 WBC 6.7 RBC 3.56 L Hgb 10.2 L Hct 29.8 L MCV 83.7 MCH 28.7 MCHC 34.2 RDW 13.6 Plt Count 218 MPV 12.6 H Immature Gran % (Auto) 0.3 Neut % (Auto) 69.3 Lymph % (Auto) 18.3 L [place] % (Auto) 9.4 Eos % (Auto) 2.1 Baso % (Auto) 0.6 Lymph # (Auto) 1.2 [place] # (Auto) 0.6 Eos # (Auto) 0.1 Baso # (Auto) 0.0 Abs Immat Gran (auto) 0.02 Absolute Neuts (auto) 4.7 Absolute Nucleated RBC 0.000 Nucleated RBC % (auto) 0.0 Sodium 143 Potassium 2.7 L Chloride 112 H Carbon Dioxide 20 L Anion Gap 14 BUN 28 H Creatinine 1.81 H Estim Creat Clear Calc 18.0 Estimated GFR 27 POC Glucose Random Glucose 107 Calcium 8.2 L D Magnesium Cancelled 1.3 L* Troponin I High Sens COVID-19 (SELENE) COVID-[employer] 06/21/21 06/21/21 06/21/21 06:56 07:12 12:12 WBC RBC Hgb Hct MCV MCH MCHC RDW Plt Count MPV Immature Gran % (Auto) Neut % (Auto) Lymph % (Auto) [place] % (Auto) Eos % (Auto) Baso % (Auto) Lymph # (Auto) [place] # (Auto) Eos # (Auto) Baso # (Auto) Abs Immat Gran (auto) Absolute Neuts (auto) Absolute Nucleated RBC Nucleated RBC % (auto) Sodium Potassium Chloride Carbon Dioxide Anion Gap BUN Creatinine Estim Creat Clear Calc Estimated GFR POC Glucose 109 184 H Random Glucose Calcium Magnesium Troponin I High Sens 198.7 H* COVID-19 (SELENE) COVID-[employer] 06/21/21 12:52 WBC RBC Hgb Hct MCV MCH MCHC RDW Plt Count MPV Immature Gran % (Auto) Neut % (Auto) Lymph % (Auto) [place] % (Auto) Eos % (Auto) Baso % (Auto) Lymph # (Auto) [place] # (Auto) Eos # (Auto) Baso # (Auto) Abs Immat Gran (auto) Absolute Neuts (auto) Absolute Nucleated RBC Nucleated RBC % (auto) Sodium 138 Potassium 3.1 L Chloride 108 Carbon Dioxide 19 L Anion Gap 14 BUN 26 H Creatinine 1.73 H Estim Creat Clear Calc 18.9 Estimated GFR 28 POC Glucose Random Glucose 196 H Calcium 7.6 L D Magnesium Troponin I High Sens COVID-19 (SELENE) COVID-19 Clin Com Assessment and Plan (1) Elevated troponin: Status: Acute Plan 81-year-old female with known coronary disease and 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 She is admitted for abnormal electrolytes. She had PVCs and prolonged QT interval likely due to hypo magnesemia, hypokalemia and hy pocalcemia. Hypomagnesemia leads to hypocalcemia and hypokalemia. The magnesium should be aggressively repleted and potassium and calcium of should be monitored closely 2. She has kidney disease and has elevated blood pressures. Her troponin levels are mildly abnormal but flat. She has no chest pain or significant shortness of breath. I think this is a type 2 injury. She does not need further workup for this. Collect to lytes should be monitored closely. Please be careful adding medications that did not cause prolonged QT interval as her QT was prolonged due to electrolyte issues. Thank you for allowing me to participate in the care of your patient. Please feel free to contact me if you have any questions. Procedures Date of Service Date of Service: 06/21/21
[2021-06-21 16:09] LABS: Glucose, Whole Blood 295 mg/dL (60-115)
[2021-06-21] MEDS: 0.9 % Sodium Chloride Flush 3 ML SYRINGE IVFLUSH ×2 (17:37→20:20)
[2021-06-21] MEDS: clonazePAM 0.5 MG TABLET PO (19:27)
[2021-06-21 20:09] LABS: Glucose, Whole Blood 243 mg/dL (60-115)
[2021-06-21] MEDS: Omeprazole 20 MG CAPSULE.DR PO (20:20)
[2021-06-21] MEDS: lisinopriL 20 MG TABLET PO (20:20)
[2021-06-21] MEDS: Ferrous Sulfate 324 MG TABLET.DR PO (20:20)
--- NOTE | 2021-06-22 | ECG_ITS ---
Test Reason : qtc check Blood Pressure : / mmHG Vent. Rate : 089 BPM Atrial Rate : 089 BPM P-R Int : 144 ms QRS Dur : 122 ms QT Int : 426 ms P-R-T Axes : 058 049 027 degrees QTc Int : 518 ms Sinus rhythm with frequent Premature ventricular complexes in a pattern of bigeminy Right bundle branch block Abnormal ECG When compared with ECG of 20-JUN-2021 08:40, No significant change was found Referred By: Elena Hercules Electronically Signed By:Valentín Stevenson
[2021-06-22] MEDS: Heparin Sodium,Porcine 5,000 UNIT/ML VIAL 5000 UNIT SUBCUT (02:35)
[2021-06-22 06:48] LABS: Anion Gap 12 (12-20); Blood Urea Nitrogen 24 mg/dL (9-16); Carbon Dioxide 18 mmol/L (22-29); Chloride 113 mmol/L (96-108); Estimated Glomerular Filt Rate 30; Glucose Random 103 mg/dL (60-115); Potassium 3.4 mmol/L (3.3-5.1); Sodium 140 mmol/L (135-145)
[2021-06-22 06:51] LABS: Magnesium 2.5 mg/dL (1.6-2.6)
[2021-06-22 07:26] VITALS: BP 158/78; PULSE 79; RESP 18; TEMP 36.3; O2SAT 100
[2021-06-22 08:10] LABS: Glucose, Whole Blood 124 mg/dL (60-115)
[2021-06-22] MEDS: Potassium Chloride ER 20 MEQ TAB.ER.PRT 40 MEQ PO (09:39)
[2021-06-22] MEDS: Aspirin Enteric Coated 81 MG TABLET.DR PO (09:42)
[2021-06-22] MEDS: Loratadine 10 MG TABLET PO (09:42)
[2021-06-22] MEDS: lisinopriL 20 MG TABLET PO (09:43)
[2021-06-22] MEDS: Omeprazole 20 MG CAPSULE.DR PO (09:43)
[2021-06-22] MEDS: amLODIPine Besylate 5 MG TABLET PO (09:43)
[2021-06-22] MEDS: Docusate Sodium 100 MG CAPSULE PO (09:47)
[2021-06-22] MEDS: 0.9 % Sodium Chloride Flush 3 ML SYRINGE IVFLUSH (09:48)
[2021-06-22] MEDS: Lactated Ringers 1,000 ML 100 ML IVCONT (09:50)
[2021-06-22 10:23] VITALS: BMI 21.1
[2021-06-22 11:20] LABS: Glucose, Whole Blood 377 mg/dL (60-115)
[2021-06-22 11:31] VITALS: BP 147/65; PULSE 95; RESP 18; TEMP 36.9; O2SAT 97
--- NOTE | 2021-06-22 12:56 | MHC.CM.PN ---
pt dcd home ,no skilled services ordered by
--- NOTE | 2021-06-22 13:02 | P.DS_ITS ---
DS: Providers Provider Date of Service: 06/22/21 Date of admission: 06/20/21 14:08 Date of discharge: 06/22/21 Primary care physician: Unknown Physician Consults: 06/20/21 14:18 Consult to Cardiology Routine Consulting Provider: Valentín Stevenson Reason for consultation: elevated troponin Has provider been notified: No DS: Diagnosis Discharge Diagnosis (1) Elevated troponin: Status: Acute DS: Summary Hospital Course Hospital Course: 81 year old women? brought to the emergency room from short-stay.? She was having a port placed for knee she of chemotherapy secondary to pancreatic cancer.? In short-stay she was having frequent PVCs and at 1 point her heart rate dropped to 30.? Patient reported that since her diagnosis she has had very poor appetite and has lost a significant amount of weight.? She reported over the last couple of days she has been feeling very fatigued and weak.? This morning and she was having some shortness of breath, weakness and chest pain.? W hile in short-stay she developed numbness and tingling to her hands and feet.? She was found to have multiple electrolyte abnormalities including potassium 2.8, magnesium 1.0.? EKG showed bigeminy with heart rate in the 80s. ? Troponin 173.8, 181.5 with no complaints of active chest pain.? She was given a dose of IV magnesium, potassium and aspirin. she be admitted for further management and treatment of electrolyte abnormalities Hospital Course volume repleted with IV fluids and electrolytes repleted as well. Cardiology was consulted for bump in troponin but however felt this was a type 2 cardiac injury. Patient continued to do well on the day discharge she was screened by Physical therapy who deemed her appropriate for home with family. She will be discharged home Time Spent with Patient Time attestation: Total time spent providing and/or coordinating discharge services: Discharge coordination time: Greater than 30 minutes Quality: Safe Use of Opioids Does Pt have an Active Cancer Diagnosis on the Problem List?: No Quality: Stroke Does the patient have a stroke diagnosis?: No Physical Exam Vital Signs: Vital Signs: Last Vital Signs Temp 98.5 F 06/22/21 11:31 Pulse 95 06/22/21 11:31 Resp 18 06/22/21 11:31 BP 147/65 H 06/22/21 11:31 Pulse Ox 97 06/22/21 11:31 BMI result Body Mass Index 21.1 DS: Data Data Completed and Pending Labs on day of discharge: Laboratory Results - last 24 hr 06/21/21 06/21/21 06/21/21 12:52 15:46 20:05 Sodium 138 Potassium 3.1 L Chloride 108 Carbon Dioxide 19 L Anion Gap 14 BUN 26 H Creatinine 1.73 H Estim Creat Clear Calc 18.9 Estimated GFR 28 POC Glucose 295 H 243 H Random Glucose 196 H Calcium 7.6 L D Magnesium 06/22/21 06/22/21 06/22/21 05:42 05:42 07:28 Sodium 140 Potassium 3.4 Chloride 113 H Carbon Dioxide 18 L Anion Gap 12 BUN 24 H Creatinine 1.64 H Estim Creat Clear Calc 20.0 Estimated GFR 30 POC Glucose 124 H Random Glucose 103 Calcium 8.0 L Magnesium 2.5 06/22/21 10:52 Sodium Potassium Chloride Carbon Dioxide Anion Gap BUN Creatinine Estim Creat Clear Calc Estimated GFR POC Glucose 377 H* Random Glucose Calcium Magnesium Discharge Plan Discharge Patient Disposition: Home, Self-Care Discharge Diagnosis: Hypokalemia Referrals: Physician,Unknown J [Primary Care Provider] - 1 Week Discharge Medications: Continued clonazepam 0.5 mg tablet 0.5 mg PO BID PRN (Reason: Anxiety) 0RF acetaminophen [Mapap Arthritis Pain] 650 mg tablet extended release 650 mg PO Q8H PRN (Reason: Pain) 0RF glipizide 10 mg tablet 1 tab PO BID 0RF ferrous sulfate 325 mg (65 mg iron) tablet 1 tab PO BID 0RF oxycodone 5 mg Tablet 5 mg PO Q8H PRN (Reason: Breakthrough Pain, Moderate) Qty: 30 0RF pantoprazole [Protonix] 40 mg tablet,delayed release (DR/EC) 40 mg PO BID 0RF lisinopril 20 mg tablet 20 mg PO BID 0RF simethicone 125 mg capsule 125 mg PO BID-QID PRN (Reason: abdominal distention) Qty: 120 3RF loratadine [Allergy Relief (loratadine)] 10 mg tablet 10 mg PO DAILY 0RF ergocalciferol (vitamin D2) [Vitamin D2] 1,250 mcg (50,000 unit) capsule 1,250 mcg PO FR 0RF amlodipine 5 mg tablet 5 mg PO DAILY 0RF aspirin 81 mg tablet,delayed release (DR/EC) 81 mg PO DAILY 0RF Discharge Orders: Discharge Order (Routine); Ordered 06/22/21 Ordered By: Christopher Gomez Diet: advance to usual diet Activity on Discharge: As tolerated Stand Alone Forms: Patient Portal Discharge page Care Plan Goals: Continue all therapies as before hospital Health Concerns: Follow-up with PCP and oncologist for new labs Plan of Treatment: As outlined by your oncologist Assessment: See discharge summary Discharge Date/Time: 06/22/21 14:30
[2021-06-22] MEDS: Insulin Lispro 100 UNIT/ML 3 ML VIAL SUBCUT (13:03)
== END 2021-06-22 14:30 | disposition home or self-care (01) | DRG 281 ==
LOC: HO.ED 11:01 → HO.EDOVER 14:26 → HO.IMC 06-21 10:34
PROVIDERS: Nurse Practitioner Family; Admitting Provider Nurse Practitioner Acute Care; Emergency Provider Emergency Medicine; PCP Family Medicine; Visit Provider Hospitalist
DX: I42.9 Cardiomyopathy, unspecified (principal); I21.A1 Myocardial infarction type 2; N17.9 Acute kidney failure, unspecified; C25.9 Malignant neoplasm of pancreas, unspecified; N18.4 Chronic kidney disease, stage 4 (severe); M19.90 Unspecified osteoarthritis, unspecified site; E87.6 Hypokalemia; E11.22 Type 2 diabetes mellitus with diabetic chronic kidney disease; I12.9 Hypertensive chronic kidney disease with stage 1 through stage 4 chronic kidney disease, or unspecified chronic kidney disease; I25.10 Atherosclerotic heart disease of native coronary artery without angina pectoris; D63.1 Anemia in chronic kidney disease; D63.0 Anemia in neoplastic disease; E86.0 Dehydration; I49.3 Ventricular premature depolarization; E83.42 Hypomagnesemia; R94.31 Abnormal electrocardiogram [ECG] [EKG]; K59.00 Constipation, unspecified; Z20.822 Contact with and (suspected) exposure to COVID-19; Z91.040 Latex allergy status; Z88.6 Allergy status to analgesic agent; Z88.1 Allergy status to other antibiotic agents; Z88.8 Allergy status to other drugs, medicaments and biological substances; Z79.82 Long term (current) use of aspirin; Z79.899 Other long term (current) drug therapy
CPT/HCPCS: 36415; 71046; 80048; 80053; 81001; 82947; 83690; 83735; 83880; 84484; 85025; 87635; 93005; 96365; 96366; 96375; 97161; 99285; J3475

== ENCOUNTER 2021-07-08 08:18 | Day surgery (SDC) | payer OTHER, SELFPAY ==
--- NOTE | ~2021-07-08 | IR_ITS ---
PROCEDURE: IR INSERTION, CENTRAL VENOUS TUNNEL CATHETER CLINICAL INFORMATION: Pancreatic neoplasm for chemotherapy. COMPARISON: None TECHNIQUE: Following explaining ultrasound and fluoroscopy-guided placement of a right Port-A-Cath procedure, benefits and risks, a written consent was obtained. Patient was placed supine on fluoroscopy table in IR room and preliminary ultrasound imaging was obtained through the right neck. An optimal site was selected and marked on the skin. The marked site and the right neck were cleaned and draped in usual sterile manner. 1% lidocaine was injected at puncture site. Under sterile ultrasound guidance a single wall needle was advanced and right jugular vein was punctured. After observing blood return a thin guidewire was placed through the needle and needle withdrawn. A 5 [place] dilator sheath was advanced over the guidewire and the entire unit was anchored to the drape with hemostats. Approximately 1 gauze length from the right neck incision in the anterior chest wall 1% lidocaine was inserted and a small skin incision was performed. A small pocket was created and port hardware was inserted several times to create enough space. In the meantime, 1% lidocaine was injected from the anterior chest wall incision to the right neck incision along the deep adipose tissue. The port was then anchored to the skin with two 3-0 nonabsorbable nylon sutures. A blunt tunneler was connected to the port catheter and the tunneler was bluntly dissected through the right anterior chest wall incision to the right neck incision and the tunneler with catheter was pulled out through the right neck incision. The catheter was sized. At the right neck incision the 5 [place] dilator and guidewire were removed and a 0.035 J-wire was introduced through the catheter and placed in IVC under fluoroscopy. The 5 [place] sheath was removed and a 6.6 [place] peel-away sheath with dilator was advanced over the guidewire. The guidewire and the dilator were removed and the precut port catheter was inserted through the peel-away sheath into the SVC. The port was held in position as the peel-away sheath was removed. A single image was obtained documenting the catheter position. The anterior chest wall incision was subcutaneously sutured with 3-0 absorbable sutures followed by skin incision with 4-0 absorbable sutures. The neck incision was sutured with 3-0 nylon absorbable sutures. Due to patient being allergic to tape, Dermabond was applied along the right anterior neck and right chest wall incisions and covered with Band-Aid. The Port-A-Cath was then flushed with saline followed by heparin. The catheter is ready for use. All elements of maximal sterile barrier technique followed including use of cap, mask, sterile gown, sterile gloves, a sterile full body drape and hand hygiene. Also followed skin preparation with 2% chlorhexidine for cutaneous antisepsis, and sterile ultrasound preparation with sterile gel and probe cover when applicable. FINDINGS: On preliminary ultrasound imaging the jugular vein is patent and normal size. A 22 cm long 6.6 [place] port catheter insertion with its tip in the SVC. The port chamber was then held in chest wall with two 3-0 nonabsorbable sutures. FLUOROSCOPY TIME: 0.8 minutes. DAP: 94 cGy-cm2 IR/IR cvc insert tunnel w prt/crm administrator IMPRESSION: Successful ultrasound and fluoroscopy-guided placement of right central tunnel catheter via jugular vein.
[2021-07-08 08:44] VITALS: BMI 21.2
[2021-07-08 09:21] LABS: MANUAL DIFF FLAG NO
[2021-07-08 09:29] LABS: Eosinophils Absolute Auto 0.1 X10*3/uL (0.0-0.4); Hematocrit 30.7 % (37.0-47.0); Hemoglobin 10.2 g/dl (12.0-16.0); Imm Gran Abs Auto 0.04 X10*3/uL (0.00-0.03); Imm Gran Pct Auto 0.8 % (0.0-0.4); Lymphocytes Percent Auto 20.2 % (20-40); Mean Corpuscular HGB Conc 33.2 g/dl (31.0-35.0); Mean Corpuscular Hemoglobin 28.7 pg (27.0-33.0); Mean Corpuscular Volume 86.5 fL (80.0-98.0); Mean Platelet Volume 11.9 fL (9.4-12.3); Monocytes Absolute Auto 0.4 X10*3/uL (0.1-1.2); Monocytes Percent Auto 9.1 % (2-11); Neutrophils Absolute Auto 3.3 x10*3/uL (2.0-8.3); Neutrophils Percent Auto 68.9 % (45-73); Platelet Count 148 X10*3/uL (160-400); Red Blood Count 3.55 X10*6/uL (4.20-5.50); Red Cell Distribution Width 13.1 % (11.0-16.0); White Blood Count 4.8 X10*3/uL (4.8-10.8)
[2021-07-08 09:34] LABS: INTERNATIONAL NORM RATIO 1.4 (0.9-1.1); Prothrombin Time 15.9 SEC (9.9-13.0)
[2021-07-08 09:37] LABS: Partial Thromboplastin Time 30.8 SEC (24.1-38.0)
[2021-07-08 12:50] VITALS: BP 156/73; PULSE 80; RESP 17; TEMP 36.3; O2SAT 99
[2021-07-08 13:05] VITALS: BP 154/57; PULSE 78; RESP 16; O2SAT 99
[2021-07-08 13:20] VITALS: BP 139/67; PULSE 75; RESP 16; O2SAT 99
[2021-07-08] MEDS: oxyCODONE HCl Immed Release 5 MG TABLET PO (13:29)
[2021-07-08 13:35] VITALS: BP 143/65; PULSE 73; RESP 16; O2SAT 99
[2021-07-08 13:50] VITALS: BP 148/55; PULSE 77; RESP 16; O2SAT 99
== END 2021-07-08 14:17 | disposition home or self-care (01) ==
PROVIDERS: Radiology Diagnostic Radiology; PCP Family Medicine; Visit Provider Radiology Diagnostic Radiology
DX: C25.9 Malignant neoplasm of pancreas, unspecified (principal); D63.1 Anemia in chronic kidney disease; E11.22 Type 2 diabetes mellitus with diabetic chronic kidney disease; E11.21 Type 2 diabetes mellitus with diabetic nephropathy; I12.9 Hypertensive chronic kidney disease with stage 1 through stage 4 chronic kidney disease, or unspecified chronic kidney disease; N18.9 Chronic kidney disease, unspecified; Z79.4 Long term (current) use of insulin
CPT/HCPCS: 36415; 36561; 85025; 85610; 85730; 99152; 99153; C1769; C1788; J0690; J1642; J2250; J3010

== ENCOUNTER 2021-07-17 18:47 | Inpatient (IN) | payer OTHER, SELFPAY ==
--- NOTE | ~2021-07-17 | XR_ITS ---
EXAMINATION: XR CHEST CLINICAL INFORMATION: Shortness of breath. COMPARISON: 07/19/2021 chest radiograph. TECHNIQUE: Frontal view of the chest was obtained. FINDINGS: Support devices: Right-sided central venous port with the tip terminating in superior vena cava. Coiled wires overlie the left lower chest without significant change. Moderate right and small left pleural effusion is seen with superjacent hazy opacities. The heart and mediastinal structures are unremarkable. XR/XR chest 1V IMPRESSION: Moderate right and small left pleural effusions with superjacent hazy opacities with mild interval increased suggesting layering of pleural fluid and atelectasis. Infiltrates cannot be excluded.
--- NOTE | ~2021-07-17 | XR_ITS ---
EXAMINATION: XR CHEST CLINICAL INFORMATION: Post left thoracentesis COMPARISON: Ultrasound left thoracentesis today. CT abdomen pelvis 07/17/2021. Chest x-ray 06/20/2021. TECHNIQUE: 2 views of the chest were obtained. FINDINGS: There is no pneumothorax. Volume of left pleural effusion has diminished. Hazy density from right pleural effusion and possible underlying infiltrate or atelectasis at right lung base is persistent. Cardiac mediastinal contours are unchanged. No pulmonary vascular congestion. Right central port IJ catheter tip in superior vena cava. XR/XR chest 2V IMPRESSION: No pneumothorax post left-sided thoracentesis. Decreased volume left pleural effusion since prior study CT scan abdomen pelvis 07/17/2021.
--- NOTE | ~2021-07-17 | CT_ITS ---
EXAMINATION: CT ABDOMEN AND PELVIS WITHOUT CONTRAST CLINICAL INFORMATION: Epigastric pain COMPARISON: 10/27/2020 TECHNIQUE: Multidetector volumetric imaging was performed from the superior aspect of the liver through the pubic symphysis. Sagittal and coronal reformatted images were obtained on the technologist's workstation. This CT examination was performed using dose optimization techniques as appropriate, variously including the following: *Automated exposure control *Adjustment of mA and/or kV according to patient size (this includes techniques or standardized protocols for targeted exams where dose is matched to indication/reason for exam; i.e. extremities or head) *Use of iterative reconstruction technique DLP: 324 mGy-cm FINDINGS: LUNG BASES: Moderate layering pleural effusions at both bases. Minor bibasilar airspace disease. LIVER: Cystic lesion posterior right lobe segment 7 appears without sitting change allowing for technical differences. Similar changes left lobe favoring cysts. This is unchanged as well. Granulomas again noted. No new lesions. Small amount of perihepatic free fluid. GALLBLADDER, AND BILIARY TREE: Gallbladder is absent consistent surgical history. No significant change in appearance of the biliary tree. PANCREAS: Remaining pancreatic parenchyma appears atrophic. Prominence of the pancreatic duct similar to baseline. No new findings. SPLEEN: Unremarkable. ADRENAL GLANDS: Unremarkable. KIDNEYS AND URETERS: The kidneys are normal in size, shape, and attenuation. No hydronephrosis, hydroureter, or calculi seen. No perinephric stranding. BLADDER: Unremarkable. GASTROINTESTINAL TRACT: The small and large bowel are again notable for colonic diverticulosis without definite acute inflammatory changes. No obstruction. No serosal lesions. No obstruction. ABDOMINAL WALL: No significant hernia is appreciated. LYMPH NODES: No bulky lymphadenopathy in this limited nonenhanced study. VASCULAR: Unremarkable. PELVIC VISCERA: Unremarkable. OSSEOUS STRUCTURES: No suspicious lesions. Severe degenerative disc disease throughout lumbar spine. CT/CT abdomen pelvis wo con IMPRESSION: 1. Bilateral moderate-sized pleural effusions. 2. Trace perihepatic ascites. 3. Limited imaging due to lack of IV and oral contrast. Diverticulosis without acute inflammatory changes. Fleischner guidelines were followed.
--- NOTE | ~2021-07-17 | XR_ITS ---
EXAMINATION: XR CHEST CLINICAL INFORMATION: CHF COMPARISON: 07/19/2021 TECHNIQUE: Frontal view of the chest was obtained. FINDINGS: CT compatible right chest wall port terminates over the mid SVC. Radiopaque material overlies the left chest. Cardiac leads overlie the chest. The lungs are well expanded. Increased small to moderate right-sided pleural effusion. Increased small left pleural effusion. Associated basilar opacities. No pneumothorax. The cardiomediastinal silhouette is unchanged, with a calcified aorta. XR/XR chest 1V IMPRESSION: Increased moderate right and small left pleural effusions with associated airspace opacity which may be atelectasis and/or pneumonia.
--- NOTE | ~2021-07-17 | US_ITS ---
EXAMINATION: US GUIDED THORACENTESIS, LEFT CLINICAL INFORMATION: Small left pleural effusions for diagnosis. COMPARISON: None TECHNIQUE: Following explaining the ultrasound-guided left thoracentesis procedure, the benefits and risk, a written consent was obtained. The patient was placed upright sitting and preliminary ultrasound imaging was obtained through the posterior chest. An optimal site was selected along the infrascapular line at approximately the 10th interspace and marked on the skin. The marked area was cleaned and draped in the usual sterile manner. 1% lidocaine was injected at the puncture site. Through a small skin incision, a 4-[employer] catheter was inserted into the pleural space. After observing fluid return, the stylet was withdrawn and the catheter connected to a vacuum bottle via a connecting cannula. After obtaining all fluid and observing no more fluid return, the catheter was withdrawn and complete hemostasis was achieved at the puncture site. A sterile dressing was applied post procedure. A chest x-ray in inspiration and expiration was obtained. FINDINGS: There is a small to moderate left pleural effusion. Approximately 1 liter of cloudy, yellowish fluid was drained and fluid was sent to the lab as per referring physician's orders. US/US thoracentesis IMPRESSION: Successful ultrasound-guided diagnostic left thoracentesis performed.
--- NOTE | ~2021-07-17 | CT_ITS ---
EXAMINATION: CT CHEST WITHOUT CONTRAST CLINICAL INFORMATION: Shortness of breath COMPARISON: Chest x-ray from earlier today TECHNIQUE: Multidetector volumetric CT imaging of the chest was done. Axial MIP volume rendering provided. Sagittal and coronal reformatted images were obtained. This CT examination was performed using dose optimization techniques as appropriate, variously including the following: *Automated exposure control *Adjustment of mA and/or kV according to patient size (this includes techniques or standardized protocols for targeted exams where dose is matched to indication/reason for exam; i.e. extremities or head) *Use of iterative reconstruction technique DLP: 240 mGy-cm FINDINGS: LUNGS: There is predominantly groundglass opacity within the posterior left upper lobe and lingula with a few interspersed small foci of denser consolidation. There is extensive dense consolidation throughout the left lower lobe with some associated groundglass opacity. There is relatively mild groundglass opacity mixed with consolidation in the posterior right upper lobe. There is partial opacification of the right lower lobe, predominantly dependently near a pleural effusion; this is favored to at least partially be due to atelectasis. Interlobular septal thickening is noted bilaterally, suspicious for a component of interstitial edema. MEDIASTINUM: Thyroid gland appears diminutive. No discrete mediastinal lymphadenopathy is seen though evaluation is limited without intravenous contrast. There is atherosclerotic calcification along the aorta. Coronary artery calcifications are present. Cardiac size is within normal limits; no pericardial effusion. PLEURA: Moderate right and small left pleural effusions. No pneumothorax. AXILLA: No lymphadenopathy. UPPER ABDOMEN: Redemonstrated low-density lesion in the posterior right hepatic lobe, favoring a cyst. The pancreas appears atrophic. OSSEOUS STRUCTURES: There are changes of diffuse idiopathic skeletal hyperostosis in the spine. Degenerative changes are noted in the spine. CT/CT chest wo con IMPRESSION: 1. Extensive consolidation within the left lower lobe. In the setting of recent left-sided thoracentesis, this could represent reexpansion pulmonary edema. In the proper clinical setting, pneumonia could also have this appearance. 2. Trace residual left pleural effusion noted. 3. Moderate right pleural effusion. Adjacent dense right lower lobe opacity is favored to at least partially be due to atelectasis. 4. Regions of groundglass opacity in the upper lobes, left greater than right, which could be secondary to edema or infection. 5. Interlobular septal thickening consistent with a component of interstitial edema.
[2021-07-17 18:49] VITALS: BP 136/73; PULSE 106; RESP 18; TEMP 37.8; O2SAT 97; BMI 21.4
--- NOTE | 2021-07-17 20:28 | ECG_ITS ---
Test Reason : ABDOMINAL PAIN Blood Pressure : / mmHG Vent. Rate : 091 BPM Atrial Rate : 091 BPM P-R Int : 156 ms QRS Dur : 132 ms QT Int : 422 ms P-R-T Axes : 039 051 -02 degrees QTc Int : 519 ms Normal sinus rhythm Right bundle branch block Abnormal ECG When compared with ECG of 22-JUN-2021 12:32, Premature ventricular complexes are no longer Present Referred By: Joanna Huber Electronically Signed By:Valentín Stevenson
--- NOTE | 2021-07-17 20:29 | ED_ITS ---
HPI - Nausea/Vomiting/Diarrhea General Chief complaint: Nausea/Vomiting/Diarrhea Stated complaint: Vomiting Time Seen by Provider: 07/17/21 20:27 History of Present Illness HPI Narrative: Patient female with a history of pancreatic cancer presents today with having abdominal pain nausea vomiting diarrhea after receiving chemotherapy on Sunday. No chest pain or shortness of breath diaphoresis. One bouts of diarrhea. Vomiting mostly improved. Diarrhea was brown in color. There was no blood. Not on blood thinners per patient home. Positive history of coronary artery disease, status post stent. No chest pain. No shortness of breath. No diaphoresis MD elicited complaint: nausea, vomiting and diarrhea Related Data Home Medications Medication Instructions Recorded Confirmed lisinopril 20 mg tablet 20 mg PO BID 01/01/20 07/13/21 pantoprazole 40 mg tablet,delayed 40 mg PO BID 01/27/20 07/13/21 release (Protonix) acetaminophen 650 mg 650 mg PO Q8H PRN 05/14/20 07/13/21 tablet,extended release (Mapap Arthritis Pain) clonazepam 0.5 mg tablet 0.5 mg PO BID PRN 05/14/20 07/13/21 amlodipine 5 mg tablet 5 mg PO DAILY 05/19/21 07/13/21 ergocalciferol (vitamin D2) 1,250 1,250 mcg PO FR 05/19/21 07/13/21 mcg (50,000 unit) capsule (Vitamin D2) loratadine 10 mg tablet (Allergy 10 mg PO DAILY 05/19/21 07/13/21 Relief (loratadine)) ferrous sulfate 325 mg (65 mg 1 tab PO BID 06/20/21 07/13/21 iron) tablet glipizide 10 mg tablet 1 tab PO BID 06/20/21 07/13/21 Previous Rx's Medication Instructions Recorded simethicone 125 mg capsule 125 mg PO BID-QID PRN #120 cap 02/22/21 oxycodone 5 mg tablet 5 mg PO Q8H PRN #30 tab 06/15/21 ondansetron 8 mg disintegrating 8 mg PO Q8H PRN #30 tab 06/24/21 tablet Allergies Allergy/AdvReac Type Severity Reaction Status Date / Time prochlorperazine Allergy Severe SEIZURE Verified 07/17/21 18:49 adhesive tape [ADHESIVE TAPE] Allergy Intermediate RASH Verified 07/17/21 18:49 latex [LATEX] Allergy Intermediate RASH Verified 07/17/21 18:49 clarithromycin Allergy Mild RASH Verified 07/17/21 18:49 hydrochlorothiazide Allergy Mild RASH Verified 07/17/21 18:49 metoclopramide [From Reglan] AdvReac Severe SEIZURES Verified 07/17/21 18:49 milk [MILK] AdvReac Intermediate GI UPSET Verified 07/17/21 18:49 ibuprofen AdvReac Unknown unknown Verified 07/17/21 18:49 BIAXIN Allergy Intermediate RASH Uncoded 05/19/21 13:30 Review of Systems Review of Systems: No fever no chills Yes all other systems are reviewed and are negative [facility] Past Medical History Attestation statement: The following information was validated with the patient. Medical History Anemia Arthritis Atherosclerotic cardiovascular disease CAD (coronary artery disease) Chest pain CKD (chronic kidney disease) Depression Diabetes Essential hypertension HLD (hyperlipidemia) HTN (hypertension) Pancreatic cancer Precordial chest pain Surgical History History of History of esophagogastroduodenoscopy (EGD) History of hysteroscopy Hx of cholecystectomy Hx of colonoscopy Hx of eye surgery Family History Family History Father Colon cancer Myocardial infarction Mother Uterine cancer Social History Social History Household Members: Children Housing: Apartment Alcohol intake: never Patient Tobacco Use Status: Never used Tobacco Second Hand Smoke Exposure: No Advance Directives: No Advance Directives Information Provided: No Advance Directives Date on File: 05/14/20 service: No Current occupational status: disabled Sexual orientation: Straight/Heterosexual Gender identity: Female Physical Exam Vital Signs: Vital Signs: Last Vital Signs Temp 98.2 F 07/17/21 22:45 Pulse 84 07/17/21 22:45 Resp 17 07/17/21 22:45 BP 144/73 H 07/17/21 22:45 Pulse Ox 96 07/17/21 22:45 BMI result Body Mass Index 21.4 Appearance: Alert. Oriented X3. No acute distress. Eyes: Pupils equal, round and reactive to light. ENT: Pharynx normal. Neck: Normal inspection. Neck supple. No lymph nodes noted. No crepitus CVS: Normal heart rate and rhythm. Pulses normal. Normal S1 and S2 Respiratory: No respiratory distress. Breath sounds normal. No Wheezing. No rales Abdomen: Soft and nontender. No rigidity. No distention. good BS x4 Skin: Skin warm and dry. Normal skin color. Normal skin turgor. Extremities: No lower extremity edema. Neurovascular intact to all extremities. No Lacerations. No Rash Neuro: Oriented X 3. No motor deficit. No sensory deficit. Moving all extermities. No slurred speech MDM - Nausea/Vomiting/Diarrhea MDM Narrative Medical decision making narrative: Patient has baseline renal insufficiency positive nausea generalized malaise vomiting diarrhea pain from likely pancreatic cancer. CT scan of the abdomen did not show any acute evidence of obstruction, abscess, perforation. Patient after IV fluids pain medication nausea medication still feels very nauseous wants to stay in the hospital. Will give additional IV fluid will admit patient for further evaluation case discussed with hospitalist team agree with plan. Medical Records Attestation: I reviewed the patient's medical records. Lab Data Attestation: I reviewed the patient's lab results. Result diagrams: 07/17/21 20:55 07/17/21 20:55 Labs: Lab Results 07/17/21 07/17/21 Range/Units 20:55 20:55 WBC 10.1 (4.8-10.8) X10*3/uL RBC 2.86 L (4.20-5.50) X10*6/uL Hgb 8.4 L (12.0-16.0) g/dl Hct 24.9 L (37.0-47.0) % MCV 87.1 (80.0-98.0) fL MCH 29.4 (27.0-33.0) pg MCHC 33.7 (31.0-35.0) g/dl RDW 13.4 (11.0-16.0) % Plt Count 250 (160-400) X10*3/uL MPV 12.2 (9.4-12.3) fL Immature Gran % (Auto) Cancelled Neut % (Auto) Cancelled Lymph % (Auto) Cancelled [place] % (Auto) Cancelled Eos % (Auto) Cancelled Baso % (Auto) Cancelled Lymph # (Auto) Cancelled [place] # (Auto) Cancelled Eos # (Auto) Cancelled Baso # (Auto) Cancelled Abs Immat Gran (auto) Cancelled Absolute Neuts (auto) Cancelled Absolute Nucleated RBC 0.000 (0.0-0.012) X10*3/uL Nucleated RBC % (auto) 0.0 (0.0-0.2) /100WBC Neutrophils % (Manual) 99 H (45-73) % Lymphocytes % (Manual) 1 L (20-40) % Abs Neuts (Manual) 10.0 H (2.0-8.3) X10*3/uL Lymphocytes # (Manual) 0.1 L (1.2-4.9) X10*3/uL Hypersegmented Neuts PRESENT Platelet Estimate NORMAL (NORMAL) Plt Morphology Comment NORMAL RBC Morphology NOTED Ovalocytes 1+ (5-14) /OIF Smear Tech's Comments MANUAL DIFF Sodium 128 L (135-145) mmol/L Potassium 4.0 (3.3-5.1) mmol/L Chloride 97 (96-108) mmol/L Carbon Dioxide 22 (22-29) mmol/L Anion Gap 13 (12-20) BUN 20 H (9-16) mg/dL Creatinine 1.86 H (0.5-1.4) mg/dL Estim Creat Clear Calc 17.6 Estimated GFR 26 Random Glucose 370 H* (60-115) mg/dL Calcium 8.0 L (8.4-10.2) mg/dL Total Bilirubin 0.9 (0.0-1.0) mg/dL Direct Bilirubin 0.5 (0.0-0.5) mg/dL AST 153 H (5-31) U/L ALT 195 H (0-31) U/L Alkaline Phosphatase 126 H (39-117) U/L Total Protein 5.3 L (6.5-8.0) g/dL Albumin 2.7 L (3.5-5.0) g/dL Lipase < 4 L (8-78) U/L Discharge Plan Discharge Clinical Impression: Dehydration Patient Disposition: Admitted As Inpatient
[2021-07-17 20:34] VITALS: BP 153/84; PULSE 94; RESP 16; TEMP 36.7; O2SAT 94
[2021-07-17] MEDS: HYDROmorphone HCl 0.5 MG/0.5 ML SYRINGE IVPUSH (21:00)
[2021-07-17 21:01] LABS: Hematocrit 24.9 % (37.0-47.0); Hemoglobin 8.4 g/dl (12.0-16.0); Mean Corpuscular HGB Conc 33.7 g/dl (31.0-35.0); Mean Corpuscular Hemoglobin 29.4 pg (27.0-33.0); Mean Corpuscular Volume 87.1 fL (80.0-98.0); Mean Platelet Volume 12.2 fL (9.4-12.3); Platelet Count 250 X10*3/uL (160-400); Red Blood Count 2.86 X10*6/uL (4.20-5.50); Red Cell Distribution Width 13.4 % (11.0-16.0); White Blood Count 10.1 X10*3/uL (4.8-10.8)
[2021-07-17] MEDS: 0.9 % Sodium Chloride 1,000 ML 999 ML IV (21:01)
[2021-07-17] MEDS: ondansetron HCL 4 MG/2 ML VIAL IVPUSH (21:01)
[2021-07-17 21:29] LABS: Alanine Aminotransferase 195 U/L (0-31); Albumin Level 2.7 g/dL (3.5-5.0); Alkaline Phosphatase 126 U/L (39-117); Anion Gap 13 (12-20); Aspartate Amino Transferase 153 U/L (5-31); Bilirubin Direct 0.5 mg/dL (0.0-0.5); Bilirubin Total 0.9 mg/dL (0.0-1.0); Blood Urea Nitrogen 20 mg/dL (9-16); Carbon Dioxide 22 mmol/L (22-29); Chloride 97 mmol/L (96-108); Creatinine Clr Calc Pharmacy 17.6; Estimated Glomerular Filt Rate 26; Glucose Random 370 mg/dL (60-115); Lipase < 4 U/L (8-78); Sodium 128 mmol/L (135-145); Total Protein 5.3 g/dL (6.5-8.0)
[2021-07-17 21:32] LABS: Hypersegmented Neutrophils PRESENT; Lymphocytes Absolute Manual 0.1 X10*3/uL (1.2-4.9); Lymphocytes Percent Manual 1 % (20-40); Neutrophils Percent Manual 99 % (45-73); SLIDE REVIEW MANUAL DIFF
[2021-07-17 21:33] LABS: Platelet Estimate NORMAL (NORMAL); Platelet Morphology Comment NORMAL
[2021-07-17 21:34] LABS: Ovalocytes 1+ (5-14) /OIF; RBC Morphology NOTED
[2021-07-17 22:45] VITALS: BP 144/73; PULSE 84; RESP 17; TEMP 36.8; O2SAT 96
--- NOTE | 2021-07-17 23:21 | P.HPHOSP_ITS ---
History of Present Illness Date of Service: 07/17/21 Chief Complaint: abd pain 81-year-old female with a past medical history of hypertension, hyperlipidemia, diabetes, CAD, CKD, anxiety, depression, arthritis, history of pancreatic cancer on chemotherapy presented to the hospital today with a chief complaint of a bdominal pain. Patient reports that over the past 2 days she has been having abdominal pain, diffuse in nature, associated nausea and vomiting; denies any blood in the vomitus. Also complains of diarrhea yesterday, denies any blood in the stool. Reports she has not been eating well for the past 2 days. Denies any chest pain or palpitations. denies any fever chills cough. Denies any urinary symptoms . Review of all other systems is negative except mentioned above ER course: Per ER team patient noted to have diffuse abdominal tenderness; CT abdomen showed no acute intra-abdominal process; noted bilateral moderate pleural effusions; admitted to the hospital for further management PMFSH Medical History Anemia Arthritis Atherosclerotic cardiovascular disease CAD (coronary artery disease) Chest pain CKD (chronic kidney disease) Depression Diabetes Essential hypertension HLD (hyperlipidemia) HTN (hypertension) Pancreatic cancer Precordial chest pain Family History Father Colon cancer Myocardial infarction Mother Uterine cancer Surgical History History of History of esophagogastroduodenoscopy (EGD) History of hysteroscopy Hx of cholecystectomy Hx of colonoscopy Hx of eye surgery Social History Household Members: Children Housing: Apartment Alcohol intake: never Patient Tobacco Use Status: Never used Tobacco Second Hand Smoke Exposure: No Advance Directives: No Advance Directives Information Provided: No Advance Directives Date on File: 05/14/20 service: No Current occupational status: disabled Sexual orientation: Straight/Heterosexual Gender identity: Female Meds Allergies Allergy/AdvReac Type Severity Reaction Status Date / Time prochlorperazine Allergy Severe SEIZURE Verified 07/17/21 18:49 adhesive tape [ADHESIVE TAPE] Allergy Intermediate RASH Verified 07/17/21 18:49 latex [LATEX] Allergy Intermediate RASH Verified 07/17/21 18:49 clarithromycin Allergy Mild RASH Verified 07/17/21 18:49 hydrochlorothiazide Allergy Mild RASH Verified 07/17/21 18:49 metoclopramide [From Reglan] AdvReac Severe SEIZURES Verified 07/17/21 18:49 milk [MILK] AdvReac Intermediate GI UPSET Verified 07/17/21 18:49 ibuprofen AdvReac Unknown unknown Verified 07/17/21 18:49 BIAXIN Allergy Intermediate RASH Uncoded 05/19/21 13:30 Active Medications: Current Medications Dextrose (Dextrose 50 % 25 Gm/50 Ml Syringe) 25 gm IVPUSH Q15M PRN; Protocol PRN Reason: per Hypoglycemia Standing Ord. Enoxaparin Sodium (Enoxaparin Sodium 40 Mg/0.4 Ml Syringe) 40 mg SUBCUT Q24H DAVID Glucose (Glucose Gel 15 Gm Gel..Gram.) 15 gm PO Q15M PRN; Protocol PRN Reason: per Hypoglycemia Standing Ord. Hydromorphone HCl (Hydromorphone Hcl 1 Mg/Ml Syringe) 0.5 mg IVPUSH Q4H PRN; Protocol PRN Reason: Pain, Severe (Pain Scale 7-10) Sodium Chloride (Ns) 1,000 mls @ 50 mls/hr IVCONT .Q20H [facility] Insulin Human Lispro (Insulin Lispro 100 Unit/Ml 3 Ml Vial) 0 unit SUBCUT QIDACHS [facility]; Protocol Melatonin (Melatonin 3 Mg Tablet) 6 mg PO BEDTIME PRN PRN Reason: Insomnia Sodium Chloride (0.9 % Sodium Chloride Flush 3 Ml Syringe) 3 ml IVFLUSH QSHIFT [facility] Home Medications Medication Instructions Recorded Confirmed Last Taken Type amlodipine 5 mg tablet 1 tab PO BEDTIME 07/18/21 07/18/21 Unknown History aspirin 81 mg tablet,delayed 1 tab PO DAILY 07/18/21 07/18/21 Unknown History release clonazepam 0.5 mg tablet 1 tab PO BID 07/18/21 07/18/21 Unknown History lisinopril 20 mg tablet 2 tab PO DAILY 07/18/21 07/18/21 Unknown History ondansetron 8 mg disintegrating 1 tab PO Q8H PRN 07/18/21 07/18/21 Unknown History tablet pantoprazole 40 mg tablet,delayed 1 tab PO DAILY 07/18/21 07/18/21 Unknown History release sennosides 8.6 mg tablet (senna) 2 tab PO DAILY 07/18/21 07/18/21 Unknown History sertraline 100 mg tablet 2 tab PO DAILY 07/18/21 07/18/21 Unknown History simethicone 125 mg capsule (Gas 125 mg PO NEEDED 07/18/21 07/18/21 Unknown History Relief Extra Strength) tolterodine 2 mg capsule,extended 1 cap PO DAILY 07/18/21 07/18/21 Unknown History release 24 hr Physical Exam Vital Signs and Narrative: Vital Signs: Last Vital Signs Temp 98.2 F 07/17/21 22:45 Pulse 84 07/17/21 22:45 Resp 17 07/17/21 22:45 BP 144/73 H 07/17/21 22:45 Pulse Ox 96 07/17/21 22:45 BMI result Body Mass Index 21.4 Gen: Appears be in no acute distress HEENT: NCAT, Moist mucosa. Pulmonary: Vesicular breath sounds, fair air entry CVS: Normal S1-S2 Abdomen: BS+, Soft, mildly tender diffusely Extremities: Warm well perfused Neuro: Alert and awake. Results Labs CBC and Chem 7: 07/18/21 04:09 07/18/21 04:09 Labs: Laboratory Results - last 24 hr 07/17/21 07/17/21 20:55 20:55 MCV 87.1 MCH 29.4 MCHC 33.7 RDW 13.4 Plt Count 250 MPV 12.2 Immature Gran % (Auto) Cancelled Neut % (Auto) Cancelled Lymph % (Auto) Cancelled [place] % (Auto) Cancelled Eos % (Auto) Cancelled Baso % (Auto) Cancelled Lymph # (Auto) Cancelled [place] # (Auto) Cancelled Eos # (Auto) Cancelled Baso # (Auto) Cancelled Abs Immat Gran (auto) Cancelled Absolute Neuts (auto) Cancelled Absolute Nucleated RBC 0.000 Nucleated RBC % (auto) 0.0 Neutrophils % (Manual) 99 H Lymphocytes % (Manual) 1 L Abs Neuts (Manual) 10.0 H Lymphocytes # (Manual) 0.1 L Hypersegmented Neuts PRESENT Platelet Estimate NORMAL Plt Morphology Comment NORMAL RBC Morphology NOTED Ovalocytes 1+ (5-14) Smear Tech's Comments MANUAL DIFF Anion Gap 13 Estim Creat Clear Calc 17.6 Estimated GFR 26 Random Glucose 370 H* Calcium 8.0 L Total Bilirubin 0.9 Direct Bilirubin 0.5 AST 153 H ALT 195 H Alkaline Phosphatase 126 H Total Protein 5.3 L Albumin 2.7 L Lipase < 4 L Imaging Radiologist's Impressions: Impressions Abdomen/Pelvis CT 07/17/21 22:18 IMPRESSION: 1. Bilateral moderate-sized pleural effusions. 2. Trace perihepatic ascites. 3. Limited imaging due to lack of IV and oral contrast. Diverticulosis without acute inflammatory changes. Fleischner guidelines were followed. Assessment and Plan Plan 81-year-old female with a past medical history of hypertension, hyperlipidemia, diabetes, CAD, CKD, anxiety, depression, arthritis, history of pancreatic cancer on chemotherapy presented to the hospital today with a chief complaint of abd ominal pain. Nausea/vomiting /abdominal pain: CT abdomen showed no acute intra-abdominal process. Question related to chemotherapy Supportive care Gentle IV fluids Pain control Moderate pleural effusions: Patient is saturating 96% on room air. Mild hyponatremia: Likely low solute state. Give the patient on gentle IV fluids. Repeat BMP. History of CKD: Creatinine at baseline. History of diabetes: Insulin sliding scale History of hypertension: Continue home amlodipine, lisinopril History of depression: Continue home sertraline DVT prophylaxis: Lovenox Code status: Full code Quality Stroke Does the patient have a stroke diagnosis?: No VTE Prior VTE?: No VTE Risk Level:: Medical - moderate - high VTE Device Contraindication: Treatment Not Indicated VTE Drug Contraindication: N/A - Med Ordered
[2021-07-18] VITALS (8 sets, daily range): BP systolic 137–157; BP diastolic 71–86; PULSE 80–111; RESP 12–19; TEMP 36.4–37.2; O2SAT 90–97
[2021-07-18] MEDS: 0.9 % Sodium Chloride 1,000 ML 50 ML IVCONT ×2 (00:29→22:27)
[2021-07-18] MEDS: 0.9 % Sodium Chloride Flush 3 ML SYRINGE IVFLUSH (00:29)
[2021-07-18 01:28] LABS: Appearance Urine CLEAR; Color Urine YELLOW; Glucose Urine UA 250 MG/DL (NEG); Leukocyte Esterase Urine NEG (NEG); Nitrite Urine NEG (NEG); UACC Culture Trigger NO; Urine Blood 1+ (NEG); Urine Ketones NEG (NEG); Urine Protein 2+ MG/DL (NEG-TRACE)
[2021-07-18 01:57] LABS: Amorphous Sediment Urine 1+ /LPF; Bacteria Urine 1+ /LPF; Granular Casts Urine 0-2 /LPF; Mucus Urine 1+ /LPF; RBC Urine 0-2 /HPF (0); Squamous Epithelial Cell Urine 2+ /LPF
[2021-07-18 02:49] LABS: COVID-19 Test Negative (Negative)
[2021-07-18 04:57] LABS: Basophils Percent Auto 0.2 % (0-2); Eosinophils Percent Auto 0.1 % (0-4); Hemoglobin 8.2 g/dl (12.0-16.0); Imm Gran Abs Auto 0.05 X10*3/uL (0.00-0.03); Imm Gran Pct Auto 0.6 % (0.0-0.4); Lymphocytes Absolute Auto 0.4 X10*3/uL (1.2-4.9); Lymphocytes Percent Auto 4.9 % (20-40); MANUAL DIFF FLAG SCAN; Mean Corpuscular HGB Conc 32.8 g/dl (31.0-35.0); Mean Corpuscular Hemoglobin 28.6 pg (27.0-33.0); Mean Corpuscular Volume 87.1 fL (80.0-98.0); Mean Platelet Volume 12.6 fL (9.4-12.3); Monocytes Percent Auto 0.4 % (2-11); Neutrophils Absolute Auto 7.5 x10*3/uL (2.0-8.3); Neutrophils Percent Auto 93.8 % (45-73); Platelet Count 243 X10*3/uL (160-400); Red Blood Count 2.87 X10*6/uL (4.20-5.50); Red Cell Distribution Width 13.5 % (11.0-16.0); SCAN SMEAR FLAG 1
[2021-07-18 05:12] LABS: Anion Gap 11 (12-20); Blood Urea Nitrogen 19 mg/dL (9-16); Calcium 7.9 mg/dL (8.4-10.2); Carbon Dioxide 23 mmol/L (22-29); Chloride 100 mmol/L (96-108); Creatinine Clr Calc Pharmacy 19.1; Estimated Glomerular Filt Rate 29; Glucose Random 215 mg/dL (60-115); Potassium 4.3 mmol/L (3.3-5.1); Sodium 130 mmol/L (135-145)
[2021-07-18 08:17] LABS: Glucose, Whole Blood 154 mg/dL (60-115)
--- NOTE | 2021-07-18 08:41 | PHA.MEDREC ---
Pharmacy Consult ? Medication Reconciliation Pharmacy has completed the medication reconciliation.
[2021-07-18] MEDS: Enoxaparin Sodium 30 MG/0.3 ML SYRINGE SUBCUT (10:42)
--- NOTE | 2021-07-18 11:22 | HO.PM.IMPN ---
Subjective Subjective Date of Service: 07/18/21 Interval History: Seen in f/u for nausea and vomitting and hypoxia associated with pleural effusion Interval history: nausea, some abdominal discomfort no sob Review of Systems Gen: no fever Resp: no sob, no cough CV: no chest, no VIZCAINO, no leg edema GI: No n/v, no abd pain Neuro: No confusion Physical Exam Vital Signs: Vital Signs: Last Vital Signs Temp 98.2 F 07/18/21 07:38 Pulse 97 07/18/21 07:38 Resp 17 07/18/21 07:38 BP 157/79 H 07/18/21 07:38 Pulse Ox 90 L 07/18/21 07:38 BMI result Body Mass Index 21.4 Const: Other: General: AO X 3, no acute distress Resp: CTA bilateral CVS: S1,S2,RRR GI: +BS, NT, no distention Skin: No rash Neuro: motor grossly intact Psych: appropriate affect Objective Data Active Medications Dextrose (Dextrose 50 % 25 Gm/50 Ml Syringe) 25 gm IVPUSH Q15M PRN; Protocol PRN Reason: per Hypoglycemia Standing Ord. Enoxaparin Sodium (Enoxaparin Sodium 30 Mg/0.3 Ml Syringe) 30 mg SUBCUT DAILY [facility] Last Admin: 07/18/21 10:42 Dose: 30 mg Documented by: KAMINI Glucose (Glucose Gel 15 Gm Gel..Gram.) 15 gm PO Q15M PRN; Protocol PRN Reason: per Hypoglycemia Standing Ord. Hydromorphone HCl (Hydromorphone Hcl 1 Mg/Ml Syringe) 0.5 mg IVPUSH Q4H PRN; Protocol PRN Reason: Pain, Severe (Pain Scale 7-10) Sodium Chloride (Ns) 1,000 mls @ 50 mls/hr IVCONT .Q20H [facility] Last Admin: 07/18/21 00:29 Dose: 50 mls/hr Documented by: ZANE Insulin Human Lispro (Insulin Lispro 100 Unit/Ml 3 Ml Vial) 0 unit SUBCUT QIDACHS [facility]; Protocol Last Admin: 07/18/21 08:02 Dose: Not Given Documented by: KAMINI Non-Admin Reason: NPO Melatonin (Melatonin 3 Mg Tablet) 6 mg PO BEDTIME PRN PRN Reason: Insomnia Pharmacy Consult (Consult Rx Perform Med Rec) 1 each MISCELLANE ONCE PRN PRN Reason: Consult order Sodium Chloride (0.9 % Sodium Chloride Flush 3 Ml Syringe) 3 ml IVFLUSH QSHIFT DAVID Last Admin: 07/18/21 08:02 Dose: Not Given Documented by: KAMINI Non-Admin Reason: IV Running Labs CBC & Chem 7: 07/18/21 04:09 07/18/21 04:09 Labs: Laboratory Results - last 24 hr 07/17/21 07/17/21 07/18/21 20:55 20:55 01:21 Hct 24.9 L MCV 87.1 MCH 29.4 MCHC 33.7 RDW 13.4 Plt Count 250 MPV 12.2 Immature Gran % (Auto) Cancelled Neut % (Auto) Cancelled Lymph % (Auto) Cancelled [place] % (Auto) Cancelled Eos % (Auto) Cancelled Baso % (Auto) Cancelled Lymph # (Auto) Cancelled [place] # (Auto) Cancelled Eos # (Auto) Cancelled Baso # (Auto) Cancelled Abs Immat Gran (auto) Cancelled Absolute Neuts (auto) Cancelled Absolute Nucleated RBC 0.000 Nucleated RBC % (auto) 0.0 Neutrophils % (Manual) 99 H Lymphocytes % (Manual) 1 L Abs Neuts (Manual) 10.0 H Lymphocytes # (Manual) 0.1 L Hypersegmented Neuts PRESENT Platelet Estimate NORMAL Plt Morphology Comment NORMAL RBC Morphology NOTED Ovalocytes 1+ (5-14) Smear Tech's Comments MANUAL DIFF Anion Gap 13 Estim Creat Clear Calc 17.6 Estimated GFR 26 POC Glucose Random Glucose 370 H* Calcium 8.0 L Total Bilirubin 0.9 Direct Bilirubin 0.5 AST 153 H ALT 195 H Alkaline Phosphatase 126 H Total Protein 5.3 L Albumin 2.7 L Lipase < 4 L Urine Color YELLOW Urine Appearance CLEAR Urine pH 6.0 Ur Specific Dexter 1.020 Urine Protein 2+ H Urine Glucose (UA) 250 H Urine Ketones NEG Urine Blood 1+ H Urine Nitrite NEG Ur Leukocyte Esterase NEG Urine RBC 0-2 Urine WBC 1-4 Ur Squamous Epith Cells 2+ Amorphous Sediment 1+ Urine Bacteria 1+ Granular Casts 0-2 Urine Mucus 1+ COVID-19 (SELENE) COVID-19 Clin Com 07/18/21 07/18/21 07/18/21 02:26 04:09 04:09 Hct 25.0 L MCV 87.1 MCH 28.6 MCHC 32.8 RDW 13.5 Plt Count 243 MPV 12.6 H Immature Gran % (Auto) 0.6 H Neut % (Auto) 93.8 H Lymph % (Auto) 4.9 L [place] % (Auto) 0.4 L Eos % (Auto) 0.1 Baso % (Auto) 0.2 Lymph # (Auto) 0.4 L [place] # (Auto) 0.0 L Eos # (Auto) 0.0 Baso # (Auto) 0.0 Abs Immat Gran (auto) 0.05 H Absolute Neuts (auto) 7.5 Absolute Nucleated RBC 0.000 Nucleated RBC % (auto) 0.0 Neutrophils % (Manual) Lymphocytes % (Manual) Abs Neuts (Manual) Lymphocytes # (Manual) Hypersegmented Neuts Platelet Estimate Plt Morphology Comment RBC Morphology Ovalocytes Smear Tech's Comments Anion Gap 11 L Estim Creat Clear Calc 19.1 Estimated GFR 29 POC Glucose Random Glucose 215 H Calcium 7.9 L Total Bilirubin Direct Bilirubin AST ALT Alkaline Phosphatase Total Protein Albumin Lipase Urine Color Urine Appearance Urine pH Ur Specific Dexter Urine Protein Urine Glucose (UA) Urine Ketones Urine Blood Urine Nitrite Ur Leukocyte Esterase Urine RBC Urine WBC Ur Squamous Epith Cells Amorphous Sediment Urine Bacteria Granular Casts Urine Mucus COVID-19 (SELENE) Negative COVID-19 Clin Com See Note 07/18/21 07:36 Hct MCV MCH MCHC RDW Plt Count MPV Immature Gran % (Auto) Neut % (Auto) Lymph % (Auto) [place] % (Auto) Eos % (Auto) Baso % (Auto) Lymph # (Auto) [place] # (Auto) Eos # (Auto) Baso # (Auto) Abs Immat Gran (auto) Absolute Neuts (auto) Absolute Nucleated RBC Nucleated RBC % (auto) Neutrophils % (Manual) Lymphocytes % (Manual) Abs Neuts (Manual) Lymphocytes # (Manual) Hypersegmented Neuts Platelet Estimate Plt Morphology Comment RBC Morphology Ovalocytes Smear Tech's Comments Anion Gap Estim Creat Clear Calc Estimated GFR POC Glucose 154 H Random Glucose Calcium Total Bilirubin Direct Bilirubin AST ALT Alkaline Phosphatase Total Protein Albumin Lipase Urine Color Urine Appearance Urine pH Ur Specific Dexter Urine Protein Urine Glucose (UA) Urine Ketones Urine Blood Urine Nitrite Ur Leukocyte Esterase Urine RBC Urine WBC Ur Squamous Epith Cells Amorphous Sediment Urine Bacteria Granular Casts Urine Mucus COVID-19 (SELENE) COVID-19 Clin Com Assessment and Plan (1) Nausea and vomiting: Status: Acute Plan 81-year-old female with a past medical history of hypertension, hyperlipidemia, diabetes, CAD, CKD, anxiety, depression, arthritis, history of pancreatic cancer on chemotherapy presented to the hospital today with a chief complaint of abdominal pain.? Nausea/vomiting /abdominal pain: likely related to chemoc, pancreatic cancer. CT showed no acute finding, conservative management with IVF, antiemtics and pain management. Moderate pleural effusions with hypoxia, O2 sat presently 90% on 2 liters. Arrange for thoracentesis tomorrow to rule malignant effusion. Moderate hyponatremia:?Likely realted to malignance.? better today, fluid restriction and if not getting better, Nephro consult History of CKD 3:? Creatinine at baseline.? History of diabetes:? Insulin sliding scale History of hypertension:? Continue home amlodipine, lisinopril Anemia of chronic disease H/H is stable. History of depression: Continue home sertraline DVT prophylaxis: Lovenox Inpatient need: Ongoing n/v, Hypoxia due to P. effusion need thoracentesis Quality Stroke Does the patient have a stroke diagnosis?: No VTE Prior VTE?: No VTE Risk Level:: Medical - moderate - high VTE Device Contraindication: Treatment Not Indicated VTE Drug Contraindication: N/A - Med Ordered
[2021-07-18 15:14] LABS: Glucose, Whole Blood 138 mg/dL (60-115)
--- NOTE | 2021-07-18 15:41 | MHC.CM.PN ---
IMM 07/18/21, EMR REVIEWED, CM MET W/PT AND ONE OF HER SONS AT BEDSIDE, PT REPORTS SHE LIVES W/DTR ANALEZE, DENIES USE OF DME OR HOME SERVICES, PT INTERESTED IN DIRECTOR OF STRATEGIC COMMUNICATIONS AND SON ASKING FOR CONTACT INFO AT [facility] FOR EVAL FOR DIRECTOR OF STRATEGIC COMMUNICATIONS SERVICES, SON AWARE CM WILL NEED TO DO THIS AFTER HOLIDAY AND SHOULD REQUEST FROM CM TOMORROW OR PRIOR TO D/C, PT OPEN TO VNA IF RECOMMENDED, PT VERIFIES PCP IS [facility], HCP IS SON GER[facility]ARD TALBOT [phone] HOWEVER COPY NOT ON FILE, COPY REQUESTED, [facility]ERNA X3 IS ON FILE, PT BEING TRANSFERRED TO S3 AT TIME OF INTERVIEW. D/C PLAN: HOME VS HOME W/NEW VNA, FAMILY FOR TRANSPORT.
[2021-07-18 16:38] LABS: Glucose, Whole Blood 141 mg/dL (60-115)
[2021-07-18 20:37] LABS: Glucose, Whole Blood 158 mg/dL (60-115)
[2021-07-18] MEDS: Insulin Lispro 100 UNIT/ML 3 ML VIAL SUBCUT (22:28)
[2021-07-18] MEDS: Benzonatate 100 MG CAPSULE PO (22:47)
[2021-07-18] MEDS: Melatonin 3 MG TABLET 6 MG PO (22:47)
[2021-07-19] VITALS (12 sets, daily range): BP systolic 110–163; BP diastolic 66–91; PULSE 84–108; RESP 14–28; TEMP 36.1–36.9; O2SAT 90–100
[2021-07-19 07:32] LABS: Glucose, Whole Blood 128 mg/dL (60-115)
--- NOTE | 2021-07-19 08:22 | P.PNIM_ITS ---
Subjective Subjective Date of Service: 07/19/21 Interval History: nausea and vomitting and hypoxia associated with pleural effusion Review of Systems nausea, some abdominal discomfort no sob Physical Exam Vital Signs: Vital Signs: Last Vital Signs Temp 97.5 F 07/19/21 07:20 Pulse 100 07/19/21 07:20 Resp 16 07/19/21 07:20 BP 110/69 07/19/21 07:20 Pulse Ox 92 07/19/21 07:20 BMI result Body Mass Index 21.4 General: AO X 3, no acute distress Resp:? CTA bilateral,diminshed at bases. CVS: S1,S2,RRR GI: +BS, NT, no distention Skin: No rash Neuro:? motor grossly intact Psych: appropriate affect ? Objective Data Active Medications Benzonatate (Benzonatate 100 Mg Capsule) 100 mg PO TID PRN PRN Reason: Cough Last Admin: 07/18/21 22:47 Dose: 100 mg Documented by: DAVID Dextrose (Dextrose 50 % 25 Gm/50 Ml Syringe) 25 gm IVPUSH Q15M PRN; Protocol PRN Reason: per Hypoglycemia Standing Ord. Enoxaparin Sodium (Enoxaparin Sodium 30 Mg/0.3 Ml Syringe) 30 mg SUBCUT DAILY [facility] Last Admin: 07/18/21 10:42 Dose: 30 mg Documented by: KAMINI Glucose (Glucose Gel 15 Gm Gel..Gram.) 15 gm PO Q15M PRN; Protocol PRN Reason: per Hypoglycemia Standing Ord. Hydromorphone HCl (Hydromorphone Hcl 1 Mg/Ml Syringe) 0.5 mg IVPUSH Q4H PRN; Protocol PRN Reason: Pain, Severe (Pain Scale 7-10) Sodium Chloride (Ns) 1,000 mls @ 50 mls/hr IVCONT .Q20H [facility] Last Admin: 07/18/21 22:27 Dose: 50 mls/hr Documented by: DAVID Insulin Human Lispro (Insulin Lispro 100 Unit/Ml 3 Ml Vial) 0 unit SUBCUT QIDACHS [facility]; Protocol Last Admin: 07/18/21 22:28 Dose: 2 unit Documented by: DAVID Melatonin (Melatonin 3 Mg Tablet) 6 mg PO BEDTIME PRN PRN Reason: Insomnia Last Admin: 07/18/21 22:47 Dose: 6 mg Documented by: DAVID Ondansetron HCl (Ondansetron Hcl 4 Mg/2 Ml Vial) 4 mg IVPUSH Q8H PRN PRN Reason: Nausea and Vomiting Pharmacy Consult (Consult Rx Perform Med Rec) 1 each MISCELLANE ONCE PRN PRN Reason: Consult order Sodium Chloride (0.9 % Sodium Chloride Flush 3 Ml Syringe) 3 ml IVFLUSH QSHIFT [facility] Last Admin: 07/19/21 00:41 Dose: Not Given Documented by: BIENVENIDO Non-Admin Reason: IV Running Labs CBC & Chem 7: 07/19/21 13:56 07/19/21 08:39 Labs: Laboratory Results - last 24 hr 07/17/21 07/18/21 07/18/21 20:55 04:09 15:11 Hgb 8.4 L 8.2 L POC Glucose 138 H 07/18/21 07/18/21 07/19/21 16:33 20:31 07:18 Hgb POC Glucose 141 H 158 H 128 H Assessment and Plan (1) Nausea and vomiting: Status: Acute Plan 81-year-old female with a past medical history of hypertension, hyperlipidemia, diabetes, CAD, CKD, anxiety, depression, arthritis, history of pancreatic cancer on chemotherapy presented to the hospital today with a chief complaint of abdominal pain.? Nausea/vomiting /abdominal pain: likely related to chemoc, pancreatic cancer. CT showed no acute finding, conservative management with IVF, antiemtics and pain management. Moderate pleural effusions with hypoxia, O2 sat presently 90% on 2 liters. Arrange for thoracentesis tomorrow to rule malignant effusion. s/p thoracentesis -labs sent. Moderate hyponatremia:?Likely realted to malignance.? better today, fluid restriction and if not getting better, Nephro consult History of CKD 3:? Creatinine at baseline.? History of diabetes:? Insulin sliding scale History of hypertension:? Continue home amlodipine, lisinopril Anemia of chronic disease H/H is stable. History of depression: Continue home sertraline DVT prophylaxis: Lovenox Inpatient need: Ongoing n/v, Hypoxia due to P. effusion need thoracentesis Quality Stroke Does the patient have a stroke diagnosis?: No VTE Prior VTE?: No VTE Risk Level:: Medical - moderate - high VTE Device Contraindication: Treatment Not Indicated VTE Drug Contraindication: N/A - Med Ordered
[2021-07-19 08:47] LABS: Hematocrit 29.8 % (37.0-47.0); Hemoglobin 9.8 g/dl (12.0-16.0)
[2021-07-19 09:01] LABS: Glucose Random 152 mg/dL (60-115)
[2021-07-19 09:07] LABS: Alanine Aminotransferase 188 U/L (0-31); Albumin Level 2.8 g/dL (3.5-5.0); Alkaline Phosphatase 143 U/L (39-117); Anion Gap 17 (12-20); Aspartate Amino Transferase 192 U/L (5-31); Bilirubin Direct 0.5 mg/dL (0.0-0.5); Bilirubin Total 0.8 mg/dL (0.0-1.0); Blood Urea Nitrogen 23 mg/dL (9-16); Calcium 8.6 mg/dL (8.4-10.2); Carbon Dioxide 17 mmol/L (22-29); Chloride 103 mmol/L (96-108); Creatinine Clr Calc Pharmacy 16.7; Estimated Glomerular Filt Rate 25; Glucose Random 151 mg/dL (60-115); Lactate Dehydrogenase 413 U/L (122-220); Potassium 4.1 mmol/L (3.3-5.1); Sodium 133 mmol/L (135-145); Total Protein 5.7 g/dL (6.5-8.0)
[2021-07-19 09:48] LABS: INTERNATIONAL NORM RATIO 2.2 (0.9-1.1); Prothrombin Time 25.6 SEC (9.9-13.0)
[2021-07-19 09:51] LABS: Partial Thromboplastin Time 30.8 SEC (24.1-38.0)
[2021-07-19] MEDS: clonazePAM 0.5 MG TABLET PO ×2 (10:13→21:01)
[2021-07-19] MEDS: Sertraline HCL 100 MG TABLET 200 MG PO (10:14)
[2021-07-19] MEDS: Omeprazole 20 MG CAPSULE.DR PO (10:14)
[2021-07-19] MEDS: Benzonatate 100 MG CAPSULE PO ×2 (10:20→22:48)
--- NOTE | 2021-07-19 11:17 | PM.GICN ---
History of Present Illness Data of Consult Service Date: 07/19/21 Requesting physician: Kathi Virk Primary Care Provider: Maddison Saini DO HPI Reason for consult: pancreatic cancer 81-year-old female with a past medical history of hypertension, hyperlipidemia, diabetes, CAD, CKD, anxiety, depression, arthritis, history of pancreatic cancer on chemotherapy (Gemzar/Abraxane which was just started 10 d ago or so) who i am seeing for assessment for abn LFt and pancreatic cancer She initially presented with diffuse abdominal pain with associated nausea and vomiting;no blood or coffee ground emesis. she also noted some diarrhea but no melena. appetite poor last few days. Admits to feeling SOB with cough and clear sputum. She felt these symptoms are present after getting chemotherapy and feels it made her unwell. Denies any chest pain or palpitations.? ?denies any fever chills cough.? Denies any urinary symptoms . Ct imaging: nml biliary tree, liver cysts, prominent PD, pleural effusions. LABS: bili 0.8 AST: 192 ALT 188 alk phos: 143 LDH: 413 HGB: 9.8 INR: 2.2 Other data: EUS/biopsy: 05/17/2021 at [facility] --> 2.5 x 2.6 cm mass in head of pancreas, mostly solid with a small cystic component.? ?FNA of this was performed pathology revealed adenocarcinoma, morphologically consistent with pancreatic ductal primary.? ?A 2nd lesion in the body of the pancreas measuring 1.6 X 0.7 cm, also with solid and cystic component.? CBD measured 8 mm dilated pancreatic duct up to 5 mm. Review of Systems Review of Systems: Constitutional : + Weight loss, No Fever, No Chills ENT/Mouth : No sore throat, No Rhinorrhea Eyes: No Swelling, No Redness Cardiovascular : No Chest Pain, + SOB, No Edema Respiratory : + Cough, + Sputum, No Wheezing Gastrointestinal : see HPI Genitourinary : NO Dysuria, No Urinary Frequency, No Hematuria, No Urgency Musculoskeletal : No joint pain, No Myalgias, No Joint Swelling Skin : No Skin Lesions, No rash Neuro : + Weakness, No Numbness, No Dizziness, No Headache Psych : No Anxiety/Panic, No Depression Heme/Lymph: No Bruising, No Lymphadenopathy Endocrine : No Polyuria, No Polydipsia All other systems reviewed and are negative. PMFSH Past Medical History Medical History Anemia Arthritis Atherosclerotic cardiovascular disease CAD (coronary artery disease) Chest pain CKD (chronic kidney disease) Depression Diabetes Essential hypertension HLD (hyperlipidemia) HTN (hypertension) Pancreatic cancer Precordial chest pain Family History Family History Father Colon cancer Myocardial infarction Mother Uterine cancer Surgical History Surgical History History of History of esophagogastroduodenoscopy (EGD) History of hysteroscopy Hx of cholecystectomy Hx of colonoscopy Hx of eye surgery Social History Social History Household Members: Family Housing: House Do you presently have visiting nurse or other home services: No Alcohol intake: never Patient Tobacco Use Status: Never used Tobacco Second Hand Smoke Exposure: No Use of substances other than those prescribed or required for medical reasons: No Currently Displaying Signs/Symptoms of Drug Intoxication Withdrawal: No Advance Directives: No Advance Directives Information Provided: No Advance Directives Date on File: 05/14/20 Do you have thoughts of harming others: None Do you have a plan to hurt others: No Plan How much weight loss: 14-23 pounds service: No Current occupational status: disabled Sexual orientation: Straight/Heterosexual Gender identity: Female Meds Allergies Allergy/AdvReac Type Severity Reaction Status Date / Time prochlorperazine Allergy Severe SEIZURE Verified 07/17/21 18:49 adhesive tape [ADHESIVE TAPE] Allergy Intermediate RASH Verified 07/17/21 18:49 latex [LATEX] Allergy Intermediate RASH Verified 07/17/21 18:49 clarithromycin Allergy Mild RASH Verified 07/17/21 18:49 hydrochlorothiazide Allergy Mild RASH Verified 07/17/21 18:49 metoclopramide [From Reglan] AdvReac Severe SEIZURES Verified 07/17/21 18:49 milk [MILK] AdvReac Intermediate GI UPSET Verified 07/17/21 18:49 ibuprofen AdvReac Unknown unknown Verified 07/17/21 18:49 BIAXIN Allergy Intermediate RASH Uncoded 05/19/21 13:30 Active Medications: Current Medications Benzonatate (Benzonatate 100 Mg Capsule) 100 mg PO TID PRN PRN Reason: Cough Last Admin: 07/19/21 10:20 Dose: 100 mg Documented by: Clonazepam (Clonazepam 0.5 Mg Tablet) 0.5 mg PO BID [facility] Last Admin: 07/19/21 10:13 Dose: 0.5 mg Documented by: Dextrose (Dextrose 50 % 25 Gm/50 Ml Syringe) 25 gm IVPUSH Q15M PRN; Protocol PRN Reason: per Hypoglycemia Standing Ord. Enoxaparin Sodium (Enoxaparin Sodium 30 Mg/0.3 Ml Syringe) 30 mg SUBCUT DAILY [facility] Last Admin: 07/18/21 10:42 Dose: 30 mg Documented by: Glucose (Glucose Gel 15 Gm Gel..Gram.) 15 gm PO Q15M PRN; Protocol PRN Reason: per Hypoglycemia Standing Ord. Hydromorphone HCl (Hydromorphone Hcl 1 Mg/Ml Syringe) 0.5 mg IVPUSH Q4H PRN; Protocol PRN Reason: Pain, Severe (Pain Scale 7-10) Sodium Chloride (Ns) 1,000 mls @ 50 mls/hr IVCONT .Q20H [facility] Last Admin: 07/18/21 22:27 Dose: 50 mls/hr Documented by: Phytonadione 10 mg/ Sodium (Chloride) 51 mls @ 51 mls/hr IV ONCE ONE Stop: 07/19/21 11:27 Insulin Human Lispro (Insulin Lispro 100 Unit/Ml 3 Ml Vial) 0 unit SUBCUT QIDACHS [facility]; Protocol Last Admin: 07/19/21 08:51 Dose: Not Given Documented by: Melatonin (Melatonin 3 Mg Tablet) 6 mg PO BEDTIME PRN PRN Reason: Insomnia Last Admin: 07/18/21 22:47 Dose: 6 mg Documented by: Omeprazole (Omeprazole 20 Mg Capsule.Dr) 20 mg PO DAILY@0630 [facility] Last Admin: 07/19/21 10:14 Dose: 20 mg Documented by: Ondansetron HCl (Ondansetron Hcl 4 Mg/2 Ml Vial) 4 mg IVPUSH Q8H PRN PRN Reason: Nausea and Vomiting Pharmacy Consult (Consult Rx Perform Med Rec) 1 each MISCELLANE ONCE PRN PRN Reason: Consult order Senna (Sennosides 8.6 Mg Tablet) 17.2 mg PO DAILY [facility] Last Admin: 07/19/21 10:13 Dose: Not Given Documented by: Sertraline HCl (Sertraline Hcl 100 Mg Tablet) 200 mg PO DAILY [facility] Last Admin: 07/19/21 10:14 Dose: 200 mg Documented by: Simethicone (Simethicone 80 Mg Tab.Chew) 80 mg PO DAILY PRN PRN Reason: Gas Sodium Chloride (0.9 % Sodium Chloride Flush 3 Ml Syringe) 3 ml IVFLUSH QSHIFT [facility] Last Admin: 07/19/21 08:54 Dose: Not Given Documented by: Tolterodine Tartrate (Tolterodine Tartrate La 2 Mg Cap.Er.24h) 2 mg PO DAILY [facility] Home Medications Medication Instructions Recorded Confirmed Last Taken Type amlodipine 5 mg tablet 5 mg PO BEDTIME 07/18/21 07/18/21 Unknown History aspirin 81 mg tablet,delayed 81 mg PO DAILY 07/18/21 07/18/21 Unknown History release clonazepam 0.5 mg tablet 0.5 mg PO BID 07/18/21 07/18/21 Unknown History lisinopril 20 mg tablet 40 mg PO DAILY 07/18/21 07/18/21 Unknown History ondansetron 8 mg disintegrating 8 mg PO Q8H PRN 07/18/21 07/18/21 Unknown History tablet pantoprazole 40 mg tablet,delayed 40 mg PO DAILY 07/18/21 07/18/21 Unknown History release sennosides 8.6 mg tablet (senna) 17.2 mg PO DAILY 07/18/21 07/18/21 Unknown History sertraline 100 mg tablet 200 mg PO DAILY 07/18/21 07/18/21 Unknown History simethicone 125 mg capsule (Gas 125 mg PO NEEDED 07/18/21 07/18/21 Unknown History Relief Extra Strength) tolterodine 2 mg capsule,extended 2 mg PO DAILY 07/18/21 07/18/21 Unknown History release 24 hr Physical Exam Vital Signs: Vital Signs: Last Vital Signs Temp 97.5 F 07/19/21 07:20 Pulse 100 07/19/21 07:20 Resp 16 07/19/21 07:20 BP 110/69 07/19/21 07:20 Pulse Ox 92 07/19/21 07:20 BMI result Body Mass Index 21.4 EXAM: GENERAL: The patient is weak and frail VITAL SIGNS:see workflow HEENT: Nonicteric sclerae, PERRLA, EOMI. Oropharynx clear. Moist mucous membranes. Conjunctivae appear well perfused. No thyroid mass. CHEST: Chest wall is nontender. HEART: Regular rate and rhythm without murmurs. LUNGS: Clear to auscultation bilaterally. ABDOMEN: Soft, positive bowel sounds, mildly tender epigastric area , no organomegaly.no flank tenderness SKIN: No rash, no excessive bruising, petechiae, or purpura. NEUROLOGIC: Cranial nerves II-XII intact without motor/sensory deficit. Psych- flat affect Results Labs CBC & Chem 7: 07/19/21 08:39 07/19/21 08:39 Labs: Short CBC 07/19/21 Range/Units 08:39 Hgb 9.8 L (12.0-16.0) g/dl Hct 29.8 L (37.0-47.0) % BMP 07/19/21 08:39 Sodium 133 L Potassium 4.1 Chloride 103 Carbon Dioxide 17 L BUN 23 H Creatinine 1.96 H Calcium 8.6 D Liver Function 07/19/21 Range/Units 08:39 Total Bilirubin 0.8 (0.0-1.0) mg/dL Direct Bilirubin 0.5 (0.0-0.5) mg/dL AST 192 H (5-31) U/L ALT 188 H (0-31) U/L Alkaline Phosphatase 143 H (39-117) U/L Albumin 2.8 L (3.5-5.0) g/dL Assessment and Plan (1) Pancreatic cancer: Status: Acute (2) Abnormal LFTs: Status: Acute Plan 1/ Abn LFt with raised LDH, INR, nml plts in setting of recent chemo maybe chemo related effects. CT without CBD obstruction, no liver mets seen. She also has pleural effusions, may be malignant or due to infection, CHF. Both sepsis related cholestasis and congestive hepatpathy also possible Gemcitabine can cause transaminase elevation in 30-90% of patients, usu self limiting. PLAN: 1/ Trend LFT 2/ consider NAC trial in case of chemo related DILI 3/ if LFt cont to rise then MRCP 4/ check for DIc, FDP, fibrinogen 5/ check Hep b,c serologies 6/ doppler to r/o budd chiari Procedures Date of Service Date of Service: 07/19/21
[2021-07-19] MEDS: Tolterodine Tartrate LA 2 MG CAP.ER.24H PO (11:18)
[2021-07-19] MEDS: Phytonadione (Vit K1) 10 MG in 0.9 % Sodium Chloride 50 ML 51 MG IV (11:18)
[2021-07-19 11:42] LABS: Glucose, Whole Blood 145 mg/dL (60-115)
[2021-07-19] MEDS: ALPRAZolam 0.5 MG TABLET PO (11:50)
[2021-07-19] MEDS: ondansetron HCL 4 MG/2 ML VIAL IVPUSH (13:32)
[2021-07-19 14:02] LABS: Hematocrit 28.5 % (37.0-47.0); Hemoglobin 9.5 g/dl (12.0-16.0); Mean Corpuscular HGB Conc 33.3 g/dl (31.0-35.0); Mean Corpuscular Volume 86.9 fL (80.0-98.0); Mean Platelet Volume 11.3 fL (9.4-12.3); Platelet Count 325 X10*3/uL (160-400); Red Blood Count 3.28 X10*6/uL (4.20-5.50); Red Cell Distribution Width 13.8 % (11.0-16.0); White Blood Count 6.5 X10*3/uL (4.8-10.8)
[2021-07-19 14:27] LABS: B Type Natriuretic Peptide 1940 pg/mL (<100)
[2021-07-19 14:40] LABS: Fibrinogen > 700 MG/DL (259-690)
[2021-07-19 15:04] LABS: Band Neutrophils Percent 0 % (3-5); Lymphocytes Percent Manual 3 % (20-40); Monocytes Percent Manual 1 % (2-11); Neutrophils Percent Manual 96 % (45-73)
[2021-07-19 15:09] LABS: Burr Cells 1+ (0-2) /OIF; Platelet Estimate NORMAL (NORMAL)
[2021-07-19 15:10] LABS: Macrocytosis 1+ (5-14) /OIF
[2021-07-19 15:11] LABS: Microcytosis 1+ (5-14) /OIF; RBC Morphology NOTED
[2021-07-19 15:12] LABS: Platelet Morphology Comment NORM
[2021-07-19 15:42] LABS: Neutrophils Absolute Manual 6.2 X10*3/uL (2.0-8.3)
[2021-07-19 16:18] LABS: Glucose, Whole Blood 159 mg/dL (60-115)
[2021-07-19] MEDS: Lidocaine HCl 1 % MPF 5 ML VIAL SUBCUT (17:13)
[2021-07-19] MEDS: Furosemide 20 MG/2 ML VIAL IVPUSH (19:04)
[2021-07-19] MEDS: Albumin Human 25 % 100 ML IV (19:06)
[2021-07-19 19:55] LABS: MN% 12.8 %; PMN% 87.2 %; WBC Pleural Fluid 0.913 X10*3/uL
[2021-07-19 19:58] LABS: RBC Pleural Fluid < 0.002 X10*3/uL
[2021-07-19 20:14] LABS: BF Shift QC OK YES; Lymphocytes Pleural Fluid 7 %; Monocytes Pleural Fluid 4 %; Neutrophils Pleural Fluid 82 %
[2021-07-19 20:15] LABS: Other Cells Plerual Fl 7 %
[2021-07-19 21:08] LABS: Glucose, Whole Blood 230 mg/dL (60-115)
--- NOTE | 2021-07-19 21:46 | ECG_ITS ---
Test Reason : REPEAT Blood Pressure : / mmHG Vent. Rate : 106 BPM Atrial Rate : 106 BPM P-R Int : 232 ms QRS Dur : 138 ms QT Int : 356 ms P-R-T Axes : 000 116 038 degrees QTc Int : 472 ms Sinus tachycardia with 1st degree A-V block Right bundle branch block ST depression in Anteroseptal leads Abnormal ECG When compared with ECG of 17-JUL-2021 21:10, OR interval has increased QRS axis Shifted right ST depressed in anteroseptal leads s/o of ischemia Referred By: Joanna Huber Electronically Signed By:ALYSIA HARRIS MD
[2021-07-19] MEDS: HYDROmorphone HCl 1 MG/ML SYRINGE 0.5 MG IVPUSH (22:06)
[2021-07-19 22:13] LABS: Basophils Percent Auto 0.1 % (0-2); Hematocrit 28.6 % (37.0-47.0); Hemoglobin 9.5 g/dl (12.0-16.0); Imm Gran Abs Auto 0.06 X10*3/uL (0.00-0.03); Imm Gran Pct Auto 0.9 % (0.0-0.4); Lymphocytes Absolute Auto 0.4 X10*3/uL (1.2-4.9); Lymphocytes Percent Auto 6.4 % (20-40); MANUAL DIFF FLAG SCAN; Mean Corpuscular HGB Conc 33.2 g/dl (31.0-35.0); Mean Corpuscular Hemoglobin 28.8 pg (27.0-33.0); Mean Corpuscular Volume 86.7 fL (80.0-98.0); Mean Platelet Volume 11.7 fL (9.4-12.3); Monocytes Absolute Auto 0.1 X10*3/uL (0.1-1.2); Monocytes Percent Auto 1.9 % (2-11); Neutrophils Absolute Auto 6.3 x10*3/uL (2.0-8.3); Neutrophils Percent Auto 90.7 % (45-73); Platelet Count 311 X10*3/uL (160-400); Red Cell Distribution Width 13.9 % (11.0-16.0); SCAN SMEAR FLAG 1; White Blood Count 6.9 X10*3/uL (4.8-10.8)
--- NOTE | 2021-07-19 22:14 | PC.NURSE ---
patient refused second dose of Albumin,Dr. Gallagher made aware
[2021-07-19 22:27] LABS: Alanine Aminotransferase 182 U/L (0-31); Albumin Level 3.1 g/dL (3.5-5.0); Alkaline Phosphatase 142 U/L (39-117); Anion Gap 20 (12-20); Aspartate Amino Transferase 199 U/L (5-31); Blood Urea Nitrogen 29 mg/dL (9-16); Calcium 8.8 mg/dL (8.4-10.2); Carbon Dioxide 14 mmol/L (22-29); Chloride 101 mmol/L (96-108); Creatinine Clr Calc Pharmacy 15.6; Estimated Glomerular Filt Rate 23; Glucose Random 263 mg/dL (60-115); Potassium 4.4 mmol/L (3.3-5.1); Sodium 131 mmol/L (135-145); Total Protein 5.8 g/dL (6.5-8.0)
[2021-07-19 22:33] LABS: SLIDE REVIEW VERIFIED
[2021-07-19 22:33] LABS: Lactic Acid 2.5 mmol/L (0.5-2.0)
[2021-07-19] MEDS: Insulin Lispro 100 UNIT/ML 3 ML VIAL SUBCUT (22:41)
--- NOTE | 2021-07-19 22:52 | P.EN_ITS ---
Event Note Date of Service: 07/20/21 Event Note: A rapid response was called on the patient due to chest pain. Patient reports midsternal chest pain and shortness of breath. Her O2 dropped to mid 80s 4 L. Patient currently non-rebreather satting 92%. EKG obtained showed T-wave inversions in V1 and V2 as well as ST depressions in V2. Troponin obtain was 4000. Patient started on heparin drip. Transfer to [facility] [place]. Cardiology consult. Patient also noted to have elevated BNP. Given 40 mg of Lasix IV, change her Lasix to 40 IV b.i.d.. After discussion with cardiology, pt started of lasix drip
[2021-07-19] MEDS: Furosemide 40 MG/4 ML VIAL IVPUSH (22:53)
[2021-07-19 23:29] LABS: Glucose Pleural Fluid 163 MG/DL; LDH Pleural Fluid 174 U/L; Total Protein Pleural Fluid 1.1 GM/DL
[2021-07-19 23:37] LABS: INTERNATIONAL NORM RATIO 1.5 (0.9-1.1); Prothrombin Time 17.2 SEC (9.9-13.0)
[2021-07-19 23:40] LABS: PTT Heparin Drip 27.2 SEC (53-77.9)
[2021-07-20] VITALS (9 sets, daily range): BP systolic 118–147; BP diastolic 72–111; PULSE 82–102; RESP 17–26; TEMP 36.3–37.1; O2SAT 90–98; BMI 21.4
[2021-07-20] MEDS: Heparin Sodium,Porcine 5,000 UNIT/ML VIAL 4000 UNIT IVPUSH (00:02)
[2021-07-20 00:06] LABS: Reflex Lactate? Lactic Acid Added
--- NOTE | 2021-07-20 00:42 | PC.NURSE ---
P patient c/o mid sternal chest pain at 2130 I positioned upright,assessed vitals ,BP 158/91 pulse 107,sat 89 to 90 % on 4 Lof oxygen,Rapid response was called,EKG was done.labs drawn,CXR was done,ct scan was done,IV Dilaudid for pain administered,IV lasix was administered as ordered,patient was placed on 100% nonrebreather E transfer pending,will monitor
[2021-07-20] MEDS: Heparin Sodium,Porcine/1/2NS 25,000 UNIT/250 ML IV.SOLN 6.84 UNIT IVCONT (00:50)
--- NOTE | 2021-07-20 00:56 | PC.NURSE ---
thoracentesis drsg CDI,no swelling,no crepitus
[2021-07-20 01:00] LABS: ~Lactic Acid-LAB USE ONLY 2.6 mmol/L (0.5-2.0)
--- NOTE | 2021-07-20 02:12 | PC.NURSE ---
PATIENT RETURNED SAFELY FROM CT SCAN AT APPROX. 2340 VIA HER BED, REPORT RECEIVED FROM 3-11 RN CONCERNING SECONDARY SPECIAL EDUCATION TEACHER AND PT ORDERS. HEPARIN BOLUS ADMINISTERED ORDERED AND HEPARIN DRIP STARTED AT 0045 PER PT WEIGHT IN KG OF 49.89. WEIGHT VERIFIED BY BED SCALE ALSO. PTT-HD NOTED AT 27.2, THEREFORE, PER PROTOCOL AND WT, DRIP STARTED AT 14 UNITS/KG/HR WITH A RATE OF 6.84ML/HR AND WITNESSED BY SECOND RN. PTT-HD DRAW ENTERED FOR 0645. PT VITALS 147/46-196-49-97.4 AND O2 SAT 90% WITH 15 LITERS OXY MASK. PT WITH NO ACUTE RESP DISTRESS. AFTER REVIEWING LABS AND PT CONDITION WITH NSG CLEANER WINDOW THIS SHIFT AND PREVIOUSLY IT WAS DECIDED TO TRANSFER PT TO ICU IMC OVERFLOW PT. TELE MONITOR PER IMC ORTHODONTIC TECHNICIAN WAS ST WITH BBB. TRANSFER EXPLAINED TO PT, SHE WAS AGREEABLE TO PLAN AND TRANSPORTED VIA HER BED AND ALL HER BELONGINGS TO ICU SETTING AT 0200 AFTER GIVING REPORT TO JENNIFER BAUER.
[2021-07-20 02:25] LABS: Reflex Lactate? 2 Y
--- NOTE | 2021-07-20 06:02 | PC.NURSE ---
Addendum entered by David Spence RN 07/20/21 06:39: LASIX DRIP 10 MG/HR STARTED PER DR GLYNN/LUIS DANIEL Original Note: RECEIVED FROM S3 VIA BED IMC OVERFLOW...AWAKE..ALERT..ORIENTED X3....100% NRB MASK IN PLACE..NO DISTRESS...SAO2 IMPROVED OVERNIGHT TO 100%...O2 WEANED TO 10 L/M VIA MASK...SAO2 96%...HEPARIN DRIP INFUSING 14 UNITS/KG/HR...FOR PTT-HD 06:45...MCKENZIE PLACED ON ARRIVAL PER ...220ml OBTAINED...110ML OVER NEXT 3 HOURS..REMAINS CRACKLES LOWER PEREZ BUT NO DISTRESS...NSR..NO ECTOPY..DENIES DISCOMFORT..NAPPING POST TRANSFER..TROPONIN'S AND OUTPUT UPDATED TO DR GLYNN..
[2021-07-20] MEDS: Furosemide 200 MG in 0.9 % Sodium Chloride 80 ML IVCONT ×2 (06:33→17:50)
[2021-07-20] MEDS: Omeprazole 20 MG CAPSULE.DR PO ×2 (06:37→16:53)
[2021-07-20 07:10] LABS: Glucose, Whole Blood 182 mg/dL (60-115)
[2021-07-20 07:15] LABS: INTERNATIONAL NORM RATIO 1.4 (0.9-1.1); Prothrombin Time 15.7 SEC (9.9-13.0)
[2021-07-20 07:18] LABS: PTT Heparin Drip 47.5 SEC (53-77.9)
[2021-07-20 07:33] LABS: Anion Gap 16 (12-20); B Type Natriuretic Peptide 2792 pg/mL (<100); Blood Urea Nitrogen 32 mg/dL (9-16); Calcium 8.3 mg/dL (8.4-10.2); Carbon Dioxide 16 mmol/L (22-29); Chloride 103 mmol/L (96-108); Creatinine Clr Calc Pharmacy 14.4; Estimated Glomerular Filt Rate 21; Glucose Fasting 164 mg/dL (60-99); Potassium 4.3 mmol/L (3.3-5.1); Sodium 131 mmol/L (135-145)
[2021-07-20] MEDS: Insulin Lispro 100 UNIT/ML 3 ML VIAL SUBCUT ×3 (07:45→20:39)
[2021-07-20] MEDS: Heparin Sodium,Porcine 5,000 UNIT/ML VIAL 2000 UNIT IVPUSH ×2 (07:49→14:44)
--- NOTE | 2021-07-20 07:53 | HO.PM.IMPN ---
Subjective Subjective Date of Service: 07/20/21 Interval History: hypoxia Review of Systems overnight events noted-patient was short of breath and found to have also NSTEMI. patient says this morning shortness of breath or slightly better, denies any chest pain, has nonproductive cough. Physical Exam Vital Signs: Vital Signs: Last Vital Signs Temp 98.2 F 07/20/21 06:05 Pulse 82 07/20/21 06:05 Resp 18 07/20/21 06:05 BP 121/76 07/20/21 06:05 Pulse Ox 96 07/20/21 06:05 BMI result Body Mass Index 21.4 Appearance: Alert.? Oriented X3.? not in distress.? cvs: rrr, [id number] , no murmur res: air enrty diminshed ,sacttered rales at base. abd: no rebound or guarding ,nt, bs present. ext pulses present , no cyanosis. neuro: axo3 , nonfocal. Objective Data Active Medications Benzonatate (Benzonatate 100 Mg Capsule) 100 mg PO TID PRN PRN Reason: Cough Last Admin: 07/19/21 22:48 Dose: 100 mg Documented by: DAVID Clonazepam (Clonazepam 0.5 Mg Tablet) 0.5 mg PO BID DAVID Last Admin: 07/19/21 21:01 Dose: 0.5 mg Documented by: DAVID Dextrose (Dextrose 50 % 25 Gm/50 Ml Syringe) 25 gm IVPUSH Q15M PRN; Protocol PRN Reason: per Hypoglycemia Standing Ord. Furosemide (Furosemide 20 Mg/2 Ml Vial) 40 mg IVPUSH Q12H DAVID; Protocol Glucose (Glucose Gel 15 Gm Gel..Gram.) 15 gm PO Q15M PRN; Protocol PRN Reason: per Hypoglycemia Standing Ord. Heparin Sodium (Porcine) (Heparin Sodium,Porcine 5,000 Unit/Ml Vial) 2,000 unit 40 unit/kg (2000 unit) IVPUSH PROTOCOL BOLUS PRN; Protocol PRN Reason: 40 unit/kg - Heparin Protocol Last Admin: 07/20/21 07:49 Dose: 2,000 unit Documented by: TOMAS Heparin Sodium (Porcine) (Heparin Sodium,Porcine 5,000 Unit/Ml Vial) 4,000 unit 80 unit/kg (4000 unit) IVPUSH PROTOCOL BOLUS PRN; Protocol PRN Reason: 80 unit/kg - Heparin Protocol Hydromorphone HCl (Hydromorphone Hcl 1 Mg/Ml Syringe) 0.5 mg IVPUSH Q4H PRN; Protocol PRN Reason: Pain, Severe (Pain Scale 7-10) Last Admin: 07/19/21 22:06 Dose: 0.5 mg Documented by: DAVID Heparin Sodium/Sodium Chloride () 25,000 unit in 250 mls @ 0 mls/hr IVCONT .Q0M [facility]; Protocol Last Titration: 07/20/21 07:49 Dose: 16 units/kg/hr, 7.98 mls/hr Documented by: TOMAS Cosigned by: AMALIA Furosemide 200 mg/ Sodium (Chloride) 100 mls @ 5 mls/hr IVCONT .Q20H [facility] Last Admin: 07/20/21 06:33 Dose: 10 mg/hr, 5 mls/hr Documented by: CORINNE Insulin Human Lispro (Insulin Lispro 100 Unit/Ml 3 Ml Vial) 0 unit SUBCUT QIDACHS [facility]; Protocol Last Admin: 07/19/21 22:41 Dose: 6 unit Documented by: DAVID Melatonin (Melatonin 3 Mg Tablet) 6 mg PO BEDTIME PRN PRN Reason: Insomnia Last Admin: 07/18/21 22:47 Dose: 6 mg Documented by: DAVID Omeprazole (Omeprazole 20 Mg Capsule.Dr) 20 mg PO DAILY@0630 [facility] Last Admin: 07/20/21 06:37 Dose: 20 mg Documented by: CORINNE Ondansetron HCl (Ondansetron Hcl 4 Mg/2 Ml Vial) 4 mg IVPUSH Q8H PRN PRN Reason: Nausea and Vomiting Last Admin: 07/19/21 13:32 Dose: 4 mg Documented by: WIL Pharmacy Consult (Consult Rx Perform Med Rec) 1 each MISCELLANE ONCE PRN PRN Reason: Consult order Senna (Sennosides 8.6 Mg Tablet) 17.2 mg PO DAILY [facility] Last Admin: 07/19/21 10:13 Dose: Not Given Documented by: WIL Non-Admin Reason: Patient Refused Sertraline HCl (Sertraline Hcl 100 Mg Tablet) 200 mg PO DAILY [facility] Last Admin: 07/19/21 10:14 Dose: 200 mg Documented by: WIL Simethicone (Simethicone 80 Mg Tab.Chew) 80 mg PO DAILY PRN PRN Reason: Gas Sodium Chloride (0.9 % Sodium Chloride Flush 3 Ml Syringe) 3 ml IVFLUSH QSHIFT [facility] Last Admin: 07/20/21 00:02 Dose: Not Given Documented by: BIENVENIDO Non-Admin Reason: port flush only Tolterodine Tartrate (Tolterodine Tartrate La 2 Mg Cap.Er.24h) 2 mg PO DAILY [facility] Last Admin: 07/19/21 11:18 Dose: 2 mg Documented by: WIL Labs CBC & Chem 7: 07/19/21 21:58 07/20/21 06:57 Labs: Laboratory Results - last 24 hr 07/19/21 07/19/21 07/19/21 08:39 08:39 09:23 MCV MCH MCHC RDW Plt Count MPV Immature Gran % (Auto) Neut % (Auto) Lymph % (Auto) [place] % (Auto) Eos % (Auto) Baso % (Auto) Lymph # (Auto) [place] # (Auto) Eos # (Auto) Baso # (Auto) Abs Immat Gran (auto) Absolute Neuts (auto) Absolute Nucleated RBC Nucleated RBC % (auto) Neutrophils % (Manual) Band Neutrophils % Lymphocytes % (Manual) Monocytes % (Manual) Abs Neuts (Manual) Platelet Estimate Plt Morphology Comment RBC Morphology Microcytosis Macrocytosis Reggie Cells Smear Tech's Comments PT 25.6 H INR 2.2 H APTT 30.8 aPTT Heparin Protocol Fibrinogen > 700 H Anion Gap 17 Estim Creat Clear Calc 16.7 Estimated GFR 25 POC Glucose Random Glucose 151 H 152 H Fasting Glucose Lactic Acid Lactic Acid F/U @ 2Hr Lactic Acid F/U @ 4Hr Calcium 8.6 D Total Bilirubin 0.8 Direct Bilirubin 0.5 AST 192 H ALT 188 H Alkaline Phosphatase 143 H Lactate Dehydrogenase 413 H Troponin I High Sens B-Natriuretic Peptide Total Protein 5.7 L Albumin 2.8 L Pleural WBC Pleural RBC Pleural Neutrophils Pleural Lymphocytes Pleural Monocytes Pleural Other Cells Pleural Total Protein Pleural LDH Pleural Glucose 07/19/21 07/19/21 07/19/21 11:37 13:56 13:56 MCV 86.9 MCH 29.0 MCHC 33.3 RDW 13.8 Plt Count 325 D MPV 11.3 Immature Gran % (Auto) Neut % (Auto) Lymph % (Auto) [place] % (Auto) Eos % (Auto) Baso % (Auto) Lymph # (Auto) [place] # (Auto) Eos # (Auto) Baso # (Auto) Abs Immat Gran (auto) Absolute Neuts (auto) Absolute Nucleated RBC 0.000 Nucleated RBC % (auto) 0.0 Neutrophils % (Manual) 96 H Band Neutrophils % 0 L Lymphocytes % (Manual) 3 L Monocytes % (Manual) 1 L Abs Neuts (Manual) 6.2 Platelet Estimate NORMAL Plt Morphology Comment NORM RBC Morphology NOTED Microcytosis 1+ (5-14) Macrocytosis 1+ (5-14) [place] Cells 1+ (0-2) Smear Tech's Comments PT INR APTT aPTT Heparin Protocol Fibrinogen Anion Gap Estim Creat Clear Calc Estimated GFR POC Glucose 145 H Random Glucose Fasting Glucose Lactic Acid Lactic Acid F/U @ 2Hr Lactic Acid F/U @ 4Hr Calcium Total Bilirubin Direct Bilirubin AST ALT Alkaline Phosphatase Lactate Dehydrogenase Troponin I High Sens B-Natriuretic Peptide 1940 H Total Protein Albumin Pleural WBC Pleural RBC Pleural Neutrophils Pleural Lymphocytes Pleural Monocytes Pleural Other Cells Pleural Total Protein Pleural LDH Pleural Glucose 07/19/21 07/19/21 07/19/21 15:54 17:00 17:00 MCV MCH MCHC RDW Plt Count MPV Immature Gran % (Auto) Neut % (Auto) Lymph % (Auto) [place] % (Auto) Eos % (Auto) Baso % (Auto) Lymph # (Auto) [place] # (Auto) Eos # (Auto) Baso # (Auto) Abs Immat Gran (auto) Absolute Neuts (auto) Absolute Nucleated RBC Nucleated RBC % (auto) Neutrophils % (Manual) Band Neutrophils % Lymphocytes % (Manual) Monocytes % (Manual) Abs Neuts (Manual) Platelet Estimate Plt Morphology Comment RBC Morphology Microcytosis Macrocytosis Reggie Cells Smear Tech's Comments PT INR APTT aPTT Heparin Protocol Fibrinogen Anion Gap Estim Creat Clear Calc Estimated GFR POC Glucose 159 H Random Glucose Fasting Glucose Lactic Acid Lactic Acid F/U @ 2Hr Lactic Acid F/U @ 4Hr Calcium Total Bilirubin Direct Bilirubin AST ALT Alkaline Phosphatase Lactate Dehydrogenase Troponin I High Sens B-Natriuretic Peptide Total Protein Albumin Pleural WBC 0.913 Pleural RBC < 0.002 Pleural Neutrophils 82 Pleural Lymphocytes 7 Pleural Monocytes 4 Pleural Other Cells 7 Pleural Total Protein 1.1 Pleural LDH 174 Pleural Glucose 163 07/19/21 07/19/21 07/19/21 21:02 21:57 21:58 MCV 86.7 MCH 28.8 MCHC 33.2 RDW 13.9 Plt Count 311 MPV 11.7 Immature Gran % (Auto) 0.9 H Neut % (Auto) 90.7 H Lymph % (Auto) 6.4 L [place] % (Auto) 1.9 L Eos % (Auto) 0.0 Baso % (Auto) 0.1 Lymph # (Auto) 0.4 L [place] # (Auto) 0.1 Eos # (Auto) 0.0 Baso # (Auto) 0.0 Abs Immat Gran (auto) 0.06 H Absolute Neuts (auto) 6.3 Absolute Nucleated RBC 0.000 Nucleated RBC % (auto) 0.0 Neutrophils % (Manual) Band Neutrophils % Lymphocytes % (Manual) Monocytes % (Manual) Abs Neuts (Manual) Platelet Estimate Plt Morphology Comment RBC Morphology Microcytosis Macrocytosis Reggie Cells Smear Tech's Comments VERIFIED PT INR APTT aPTT Heparin Protocol Fibrinogen Anion Gap Estim Creat Clear Calc Estimated GFR POC Glucose 230 H Random Glucose Fasting Glucose Lactic Acid 2.5 H* Lactic Acid F/U @ 2Hr Lactic Acid F/U @ 4Hr Calcium Total Bilirubin Direct Bilirubin AST ALT Alkaline Phosphatase Lactate Dehydrogenase Troponin I High Sens B-Natriuretic Peptide Total Protein Albumin Pleural WBC Pleural RBC Pleural Neutrophils Pleural Lymphocytes Pleural Monocytes Pleural Other Cells Pleural Total Protein Pleural LDH Pleural Glucose 07/19/21 07/19/21 07/19/21 21:58 21:58 23:00 MCV MCH MCHC RDW Plt Count MPV Immature Gran % (Auto) Neut % (Auto) Lymph % (Auto) [place] % (Auto) Eos % (Auto) Baso % (Auto) Lymph # (Auto) [place] # (Auto) Eos # (Auto) Baso # (Auto) Abs Immat Gran (auto) Absolute Neuts (auto) Absolute Nucleated RBC Nucleated RBC % (auto) Neutrophils % (Manual) Band Neutrophils % Lymphocytes % (Manual) Monocytes % (Manual) Abs Neuts (Manual) Platelet Estimate Plt Morphology Comment RBC Morphology Microcytosis Macrocytosis Reggie Cells Smear Tech's Comments PT 17.2 H INR 1.5 H APTT aPTT Heparin Protocol 27.2 L Fibrinogen Anion Gap 20 Estim Creat Clear Calc 15.6 Estimated GFR 23 POC Glucose Random Glucose 263 H Fasting Glucose Lactic Acid Lactic Acid F/U @ 2Hr Lactic Acid F/U @ 4Hr Calcium 8.8 Total Bilirubin 1.0 Direct Bilirubin AST 199 H ALT 182 H Alkaline Phosphatase 142 H Lactate Dehydrogenase Troponin I High Sens 4164.1 H* D B-Natriuretic Peptide Total Protein 5.8 L Albumin 3.1 L Pleural WBC Pleural RBC Pleural Neutrophils Pleural Lymphocytes Pleural Monocytes Pleural Other Cells Pleural Total Protein Pleural LDH Pleural Glucose 07/20/21 07/20/21 07/20/21 00:21 02:18 02:51 MCV MCH MCHC RDW Plt Count MPV Immature Gran % (Auto) Neut % (Auto) Lymph % (Auto) [place] % (Auto) Eos % (Auto) Baso % (Auto) Lymph # (Auto) [place] # (Auto) Eos # (Auto) Baso # (Auto) Abs Immat Gran (auto) Absolute Neuts (auto) Absolute Nucleated RBC Nucleated RBC % (auto) Neutrophils % (Manual) Band Neutrophils % Lymphocytes % (Manual) Monocytes % (Manual) Abs Neuts (Manual) Platelet Estimate Plt Morphology Comment RBC Morphology Microcytosis Macrocytosis [place] Cells Smear Tech's Comments PT INR APTT aPTT Heparin Protocol Fibrinogen Anion Gap Estim Creat Clear Calc Estimated GFR POC Glucose Random Glucose Fasting Glucose Lactic Acid Lactic Acid F/U @ 2Hr 2.6 H* Lactic Acid F/U @ 4Hr 2.0 Calcium Total Bilirubin Direct Bilirubin AST ALT Alkaline Phosphatase Lactate Dehydrogenase Troponin I High Sens 4213.8 H* B-Natriuretic Peptide Total Protein Albumin Pleural WBC Pleural RBC Pleural Neutrophils Pleural Lymphocytes Pleural Monocytes Pleural Other Cells Pleural Total Protein Pleural LDH Pleural Glucose 07/20/21 07/20/21 07/20/21 06:57 06:57 06:57 MCV MCH MCHC RDW Plt Count MPV Immature Gran % (Auto) Neut % (Auto) Lymph % (Auto) [place] % (Auto) Eos % (Auto) Baso % (Auto) Lymph # (Auto) [place] # (Auto) Eos # (Auto) Baso # (Auto) Abs Immat Gran (auto) Absolute Neuts (auto) Absolute Nucleated RBC Nucleated RBC % (auto) Neutrophils % (Manual) Band Neutrophils % Lymphocytes % (Manual) Monocytes % (Manual) Abs Neuts (Manual) Platelet Estimate Plt Morphology Comment RBC Morphology Microcytosis Macrocytosis Reggie Cells Smear Tech's Comments PT 15.7 H INR 1.4 H APTT aPTT Heparin Protocol 47.5 L D Fibrinogen Anion Gap 16 Estim Creat Clear Calc 14.4 Estimated GFR 21 POC Glucose Random Glucose Fasting Glucose 164 H Lactic Acid Lactic Acid F/U @ 2Hr Lactic Acid F/U @ 4Hr Calcium 8.3 L Total Bilirubin Direct Bilirubin AST ALT Alkaline Phosphatase Lactate Dehydrogenase Troponin I High Sens B-Natriuretic Peptide Total Protein Albumin Pleural WBC Pleural RBC Pleural Neutrophils Pleural Lymphocytes Pleural Monocytes Pleural Other Cells Pleural Total Protein Pleural LDH Pleural Glucose 07/20/21 07/20/21 06:57 07:07 MCV MCH MCHC RDW Plt Count MPV Immature Gran % (Auto) Neut % (Auto) Lymph % (Auto) [place] % (Auto) Eos % (Auto) Baso % (Auto) Lymph # (Auto) [place] # (Auto) Eos # (Auto) Baso # (Auto) Abs Immat Gran (auto) Absolute Neuts (auto) Absolute Nucleated RBC Nucleated RBC % (auto) Neutrophils % (Manual) Band Neutrophils % Lymphocytes % (Manual) Monocytes % (Manual) Abs Neuts (Manual) Platelet Estimate Plt Morphology Comment RBC Morphology Microcytosis Macrocytosis Reggie Cells Smear Tech's Comments PT INR APTT aPTT Heparin Protocol Fibrinogen Anion Gap Estim Creat Clear Calc Estimated GFR POC Glucose 182 H Random Glucose Fasting Glucose Lactic Acid Lactic Acid F/U @ 2Hr Lactic Acid F/U @ 4Hr Calcium Total Bilirubin Direct Bilirubin AST ALT Alkaline Phosphatase Lactate Dehydrogenase Troponin I High Sens B-Natriuretic Peptide 2792 H Total Protein Albumin Pleural WBC Pleural RBC Pleural Neutrophils Pleural Lymphocytes Pleural Monocytes Pleural Other Cells Pleural Total Protein Pleural LDH Pleural Glucose Assessment and Plan (1) Nausea and vomiting: Status: Acute Plan 81-year-old female with a past medical history of hypertension, hyperlipidemia, diabetes, CAD, CKD, anxiety, depression, arthritis, history of pancreatic cancer on chemotherapy presented to the hospital today with a chief complaint of abdominal pain.? Nausea/vomiting /abdominal pain: likely related to chemoc, pancreatic cancer. CT showed no acute finding, abd pain seems improved. Acute hypoxemic respiratory failure probably multifactorial( CHF, bilateral effusions, atelactasis) iv lasix drip daily weight i/o moniter, Incentive spirometry, chest physio, patient also had pleuritic tap yesterday. nstemi:started on dual platelet,iv heprin ,statin cardiology following Moderate hyponatremia:improving?Likely realted to malignance.? better today, fluid restriction and if not getting better, Nephro consult. History of CKD 3:? Creatinine at baseline.? History of diabetes:? Insulin sliding scale History of hypertension:? Continue home amlodipine, lisinopril Anemia of chronic disease H/H is stable. History of depression: Continue home sertraline DVT prophylaxis: Lovenox Inpatient need: Ongoing n/v, Hypoxia porb sec chf,nsetmi. Quality Stroke Does the patient have a stroke diagnosis?: No VTE Prior VTE?: No VTE Risk Level:: Medical - moderate - high VTE Device Contraindication: Treatment Not Indicated VTE Drug Contraindication: N/A - Med Ordered
--- NOTE | 2021-07-20 07:55 | PC.NURSE ---
Patients Heparin gtt found to be running at 14 units/kg/hr. However, in the mar it was charted a 13.71 units/kg/hr. Ptt HD drawn at 0630 came back at 47.5. 40 units/kg bolus due to be given per protocol and dose rate to be increased by 2 units/kg/hr. Dose rate increased to 16units/kg/hr. Dose adjusted to correct rate in patients mar. Second RN Akin present as witness for dose adjustment in MAR and and on pump. PTT HD due for 1400 today. Order is in per policy.
[2021-07-20] MEDS: Sennosides 8.6 MG TABLET 17.2 MG PO (08:38)
[2021-07-20] MEDS: Sertraline HCL 100 MG TABLET 200 MG PO (08:39)
[2021-07-20] MEDS: clonazePAM 0.5 MG TABLET PO ×2 (08:39→20:39)
[2021-07-20] MEDS: Tolterodine Tartrate LA 2 MG CAP.ER.24H PO (08:43)
--- NOTE | 2021-07-20 09:33 | MHC.CLN ---
NUTRITION ADDED DIABETIC 1800 KCAL TO DIET ORDER. ADDING GLUCERNA BID TO PROVIDE ADDITIONAL 474 KCAL, 20 G PROTEIN. INCREASED NUTRITION NEEDS WITH DX PANCREATIC CANCER. DIET=DIABETIC 1800 KCAL, 2 GRAM SODIUM.
--- NOTE | 2021-07-20 09:43 | P.CONCA_ITS ---
History of Present Illness History of Present Illness Date of Service: 07/20/21 Requesting physician: Maria Alejandra Gallagher Consult reason: myocardial infarction and other (Pulmonary edema) Chief complaint: Abdominal pain Narrative: I was consulted to see Barbara in cardiology consultation because she developed acute chest pain last night associated with elevated troponin consistent with NSTEMI with EKG changes suggestive ischemia as well as findings consistent with pulmonary edema which appears to be ischemic. Patient is not a very good is po or historian and did not want spool cleaner. However she says she continues to feel poorly and her main complaint currently is shortness of breath. She denies any chest pressure at this point in time. She says she just wants to feel better. Yesterday after developing chest pressure EKG was obtained which showed anteroseptal ST depression and with a troponin of 4000 range. She was promptly started on IV heparin and a chest x-ray CT findings consistent pulmonary edema given IV Lasix. However she had poor output to IV Lasix 40 mg and on the morning she was started on Lasix drip at 10 mg an hour. Since then as per the nursing team she has been putting a good amount of urine. She is tachycardia with sinus tachycardia with heart rate in the low 100 range. Her blood pressure was initially normal but with talking and anxiety blood pressure james to systolic 190. She denies any lightheadedness, syncope. She recently has been diagnosed with pancreatic cancer is currently undergoing chemotherapy. She also has significant chronic kidney disease as well as anemia suspected to be due to anemia of chronic renal disease, and is getting Procrit shots weekly. Last year she was admitted multiple times with acute coronary syndrome and in August had been advised cardiac catheterization but she declined at that point in time. She also currently declines any invasive management says she just wants to get better and go home. Review of Systems Constitutional: Constitutional: Reports no additional constitutional complaints Eyes: Eyes: Reports no additional eye complaints Cardiovascular: Cardiovascular: Reports chest pain at rest, Denies rapid heart rate, Denies lightheadedness, Denies Loss of Consciousness, Denies palpitations and Reports dyspnea Respiratory: Respiratory: Reports no additional respiratory complaints and Reports dyspnea Gastrointestinal: Gastrointestinal: Reports no additional gastrointestinal complaints Genitourinary: Genitourinary: Reports no additional female genitourinary complaints Musculoskeletal: Musculoskeletal: Reports no additional musculoskeletal complaints Integumentary/Breasts: Skin/Breast: Reports system reviewed and no additional complaints, except as docu Neurologic: Reports system reviewed and no additional complaints, except as documented Psychiatric: Psychiatric: Reports no additional psychiatric complaints Endocrine: Endocrine: Reports no additional endocrine complaints and Denies palpitations PMFSH Past Medical History Medical History Anemia Arthritis Atherosclerotic cardiovascular disease CAD (coronary artery disease) Chest pain CKD (chronic kidney disease) Depression Diabetes Essential hypertension HLD (hyperlipidemia) HTN (hypertension) Pancreatic cancer Precordial chest pain Family History Family History Father Colon cancer Myocardial infarction Mother Uterine cancer Surgical History Surgical History History of History of esophagogastroduodenoscopy (EGD) History of hysteroscopy Hx of cholecystectomy Hx of colonoscopy Hx of eye surgery Social History Social History Household Members: Family Housing: House Do you presently have visiting nurse or other home services: No Alcohol intake: never Patient Tobacco Use Status: Never used Tobacco Second Hand Smoke Exposure: No Use of substances other than those prescribed or required for medical reasons: No Currently Displaying Signs/Symptoms of Drug Intoxication Withdrawal: No Advance Directives: No Advance Directives Information Provided: No Advance Directives Date on File: 05/14/20 Do you have thoughts of harming others: None Do you have a plan to hurt others: No Plan How much weight loss: 14-23 pounds service: No Current occupational status: disabled Sexual orientation: Straight/Heterosexual Gender identity: Female Meds Allergies Allergy/AdvReac Type Severity Reaction Status Date / Time prochlorperazine Allergy Severe SEIZURE Verified 07/17/21 18:49 adhesive tape [ADHESIVE TAPE] Allergy Intermediate RASH Verified 07/17/21 18:49 latex [LATEX] Allergy Intermediate RASH Verified 07/17/21 18:49 clarithromycin Allergy Mild RASH Verified 07/17/21 18:49 hydrochlorothiazide Allergy Mild RASH Verified 07/17/21 18:49 metoclopramide [From Reglan] AdvReac Severe SEIZURES Verified 07/17/21 18:49 milk [MILK] AdvReac Intermediate GI UPSET Verified 07/17/21 18:49 ibuprofen AdvReac Unknown unknown Verified 07/17/21 18:49 BIAXIN Allergy Intermediate RASH Uncoded 05/19/21 13:30 Active Medications: Current Medications Benzonatate (Benzonatate 100 Mg Capsule) 100 mg PO TID PRN PRN Reason: Cough Last Admin: 07/19/21 22:48 Dose: 100 mg Documented by: Clonazepam (Clonazepam 0.5 Mg Tablet) 0.5 mg PO BID DAVID Last Admin: 07/20/21 08:39 Dose: 0.5 mg Documented by: Dextrose (Dextrose 50 % 25 Gm/50 Ml Syringe) 25 gm IVPUSH Q15M PRN; Protocol PRN Reason: per Hypoglycemia Standing Ord. Furosemide (Furosemide 20 Mg/2 Ml Vial) 40 mg IVPUSH Q12H DAVID; Protocol Last Admin: 07/20/21 08:42 Dose: Not Given Documented by: Glucose (Glucose Gel 15 Gm Gel..Gram.) 15 gm PO Q15M PRN; Protocol PRN Reason: per Hypoglycemia Standing Ord. Heparin Sodium (Porcine) (Heparin Sodium,Porcine 5,000 Unit/Ml Vial) 2,000 unit 40 unit/kg (2000 unit) IVPUSH PROTOCOL BOLUS PRN; Protocol PRN Reason: 40 unit/kg - Heparin Protocol Last Admin: 07/20/21 07:49 Dose: 2,000 unit Documented by: Heparin Sodium (Porcine) (Heparin Sodium,Porcine 5,000 Unit/Ml Vial) 4,000 unit 80 unit/kg (4000 unit) IVPUSH PROTOCOL BOLUS PRN; Protocol PRN Reason: 80 unit/kg - Heparin Protocol Hydromorphone HCl (Hydromorphone Hcl 1 Mg/Ml Syringe) 0.5 mg IVPUSH Q4H PRN; Protocol PRN Reason: Pain, Severe (Pain Scale 7-10) Last Admin: 07/19/21 22:06 Dose: 0.5 mg Documented by: Heparin Sodium/Sodium Chloride () 25,000 unit in 250 mls @ 0 mls/hr IVCONT .Q0M DAVID; Protocol Last Titration: 07/20/21 07:49 Dose: 16 units/kg/hr, 7.98 mls/hr Documented by: Furosemide 200 mg/ Sodium (Chloride) 100 mls @ 5 mls/hr IVCONT .Q20H DAVID Last Admin: 07/20/21 06:33 Dose: 10 mg/hr, 5 mls/hr Documented by: Insulin Human Lispro (Insulin Lispro 100 Unit/Ml 3 Ml Vial) 0 unit SUBCUT QIDACHS [facility]; Protocol Last Admin: 07/20/21 07:45 Dose: 2 unit Documented by: Melatonin (Melatonin 3 Mg Tablet) 6 mg PO BEDTIME PRN PRN Reason: Insomnia Last Admin: 07/18/21 22:47 Dose: 6 mg Documented by: Nitroglycerin (Nitroglycerin 2 % Oint 1 Gm Packet) 0.5 inch TRANSDERMA Q6H [facility] Omeprazole (Omeprazole 20 Mg Capsule.Dr) 20 mg PO DAILY@06 [facility] Last Admin: 07/20/21 06:37 Dose: 20 mg Documented by: Ondansetron HCl (Ondansetron Hcl 4 Mg/2 Ml Vial) 4 mg IVPUSH Q8H PRN PRN Reason: Nausea and Vomiting Last Admin: 07/19/21 13:32 Dose: 4 mg Documented by: Pharmacy Consult (Consult Rx Perform Med Rec) 1 each MISCELLANE ONCE PRN PRN Reason: Consult order Senna (Sennosides 8.6 Mg Tablet) 17.2 mg PO DAILY [facility] Last Admin: 07/20/21 08:38 Dose: 17.2 mg Documented by: Sertraline HCl (Sertraline Hcl 100 Mg Tablet) 200 mg PO DAILY [facility] Last Admin: 07/20/21 08:39 Dose: 200 mg Documented by: Simethicone (Simethicone 80 Mg Tab.Chew) 80 mg PO DAILY PRN PRN Reason: Gas Sodium Chloride (0.9 % Sodium Chloride Flush 3 Ml Syringe) 3 ml IVFLUSH QSHIFT [facility] Last Admin: 07/20/21 08:00 Dose: Not Given Documented by: Tolterodine Tartrate (Tolterodine Tartrate La 2 Mg Cap.Er.24h) 2 mg PO DAILY [facility] Last Admin: 07/20/21 08:43 Dose: 2 mg Documented by: Home Medications Medication Instructions Recorded Confirmed Last Taken Type amlodipine 5 mg tablet 5 mg PO BEDTIME 07/18/21 07/18/21 Unknown History aspirin 81 mg tablet,delayed 81 mg PO DAILY 07/18/21 07/18/21 Unknown History release clonazepam 0.5 mg tablet 0.5 mg PO BID 07/18/21 07/18/21 Unknown History lisinopril 20 mg tablet 40 mg PO DAILY 07/18/21 07/18/21 Unknown History ondansetron 8 mg disintegrating 8 mg PO Q8H PRN 07/18/21 07/18/21 Unknown History tablet pantoprazole 40 mg tablet,delayed 40 mg PO DAILY 07/18/21 07/18/21 Unknown History release sennosides 8.6 mg tablet (senna) 17.2 mg PO DAILY 07/18/21 07/18/21 Unknown History sertraline 100 mg tablet 200 mg PO DAILY 07/18/21 07/18/21 Unknown History simethicone 125 mg capsule (Gas 125 mg PO NEEDED 07/18/21 07/18/21 Unknown History Relief Extra Strength) tolterodine 2 mg capsule,extended 2 mg PO DAILY 07/18/21 07/18/21 Unknown History release 24 hr Physical Exam Vital Signs: Vital Signs: Last Vital Signs Temp 98.2 F 07/20/21 08:00 Pulse 91 07/20/21 08:00 Resp 22 H 07/20/21 08:00 BP 128/80 07/20/21 08:00 Pulse Ox 96 07/20/21 08:00 BMI result Body Mass Index 21.4 Const: General: cooperative, in distress moderate and respiratory, anxious and ill appearing Nutritional Appearance: underweight Orientation/consciousness: patient oriented x3 HEENT: Head: Yes normocephalic and Yes atraumatic Neck: Neck: Yes trachea midline, Yes supple and Yes no JVD Chest: Chest palpation & inspection: normal inspection of the chest Resp: Effort & Inspection: decreased respiratory effort Auscultation: rales bilateral (Right greater than left) Cardio: Palpation: normal PMI Rate: regular rate and tachycardic Rhythm: regular rhythm Heart sounds: S1 normal heart sound present, S2 normal heart sound present, no click, no gallops, no murmurs, no rubs and Other heart sounds present (S4 present) GI: Auscultation: normal bowel sounds Skin: General skin exam: no rashes or lesions noted and ecchymosis Neuro: General: patient oriented x3 Extrem: General: Yes no clubbing, cyanosis or edema Objective Labs and Meds Result diagrams: 07/19/21 21:58 07/20/21 06:57 Lab results: Laboratory Results - last 24 hr 07/17/21 07/19/21 07/19/21 20:55 09:23 11:37 WBC RBC Hgb Hct MCV MCH MCHC RDW Plt Count MPV Immature Gran % (Auto) Neut % (Auto) Lymph % (Auto) [place] % (Auto) Eos % (Auto) Baso % (Auto) Lymph # (Auto) [place] # (Auto) Eos # (Auto) Baso # (Auto) Abs Immat Gran (auto) Absolute Neuts (auto) Absolute Nucleated RBC Nucleated RBC % (auto) Neutrophils % (Manual) Band Neutrophils % Lymphocytes % (Manual) Monocytes % (Manual) Abs Neuts (Manual) Platelet Estimate Plt Morphology Comment RBC Morphology Microcytosis Macrocytosis Reggie Cells Smear Tech's Comments Smear Path Review SEE NOTE PT 25.6 H INR 2.2 H APTT 30.8 aPTT Heparin Protocol Fibrinogen > 700 H Sodium Potassium Chloride Carbon Dioxide Anion Gap BUN Creatinine Estim Creat Clear Calc Estimated GFR POC Glucose 145 H Random Glucose Fasting Glucose Lactic Acid Lactic Acid F/U @ 2Hr Lactic Acid F/U @ 4Hr Calcium Total Bilirubin AST ALT Alkaline Phosphatase Troponin I High Sens B-Natriuretic Peptide Total Protein Albumin Pleural WBC Pleural RBC Pleural Neutrophils Pleural Lymphocytes Pleural Monocytes Pleural Other Cells Pleural Total Protein Pleural LDH Pleural Glucose 07/19/21 07/19/21 07/19/21 13:56 13:56 15:54 WBC 6.5 RBC 3.28 L Hgb 9.5 L Hct 28.5 L MCV 86.9 MCH 29.0 MCHC 33.3 RDW 13.8 Plt Count 325 D MPV 11.3 Immature Gran % (Auto) Neut % (Auto) Lymph % (Auto) [place] % (Auto) Eos % (Auto) Baso % (Auto) Lymph # (Auto) [place] # (Auto) Eos # (Auto) Baso # (Auto) Abs Immat Gran (auto) Absolute Neuts (auto) Absolute Nucleated RBC 0.000 Nucleated RBC % (auto) 0.0 Neutrophils % (Manual) 96 H Band Neutrophils % 0 L Lymphocytes % (Manual) 3 L Monocytes % (Manual) 1 L Abs Neuts (Manual) 6.2 Platelet Estimate NORMAL Plt Morphology Comment NORM RBC Morphology NOTED Microcytosis 1+ (5-14) Macrocytosis 1+ (5-14) Reggie Cells 1+ (0-2) Smear Tech's Comments Smear Path Review PT INR APTT aPTT Heparin Protocol Fibrinogen Sodium Potassium Chloride Carbon Dioxide Anion Gap BUN Creatinine Estim Creat Clear Calc Estimated GFR POC Glucose 159 H Random Glucose Fasting Glucose Lactic Acid Lactic Acid F/U @ 2Hr Lactic Acid F/U @ 4Hr Calcium Total Bilirubin AST ALT Alkaline Phosphatase Troponin I High Sens B-Natriuretic Peptide 1940 H Total Protein Albumin Pleural WBC Pleural RBC Pleural Neutrophils Pleural Lymphocytes Pleural Monocytes Pleural Other Cells Pleural Total Protein Pleural LDH Pleural Glucose 07/19/21 07/19/21 07/19/21 17:00 17:00 21:02 WBC RBC Hgb Hct MCV MCH MCHC RDW Plt Count MPV Immature Gran % (Auto) Neut % (Auto) Lymph % (Auto) [place] % (Auto) Eos % (Auto) Baso % (Auto) Lymph # (Auto) [place] # (Auto) Eos # (Auto) Baso # (Auto) Abs Immat Gran (auto) Absolute Neuts (auto) Absolute Nucleated RBC Nucleated RBC % (auto) Neutrophils % (Manual) Band Neutrophils % Lymphocytes % (Manual) Monocytes % (Manual) Abs Neuts (Manual) Platelet Estimate Plt Morphology Comment RBC Morphology Microcytosis Macrocytosis Reggie Cells Smear Tech's Comments Smear Path Review PT INR APTT aPTT Heparin Protocol Fibrinogen Sodium Potassium Chloride Carbon Dioxide Anion Gap BUN Creatinine Estim Creat Clear Calc Estimated GFR POC Glucose 230 H Random Glucose Fasting Glucose Lactic Acid Lactic Acid F/U @ 2Hr Lactic Acid F/U @ 4Hr Calcium Total Bilirubin AST ALT Alkaline Phosphatase Troponin I High Sens B-Natriuretic Peptide Total Protein Albumin Pleural WBC 0.913 Pleural RBC < 0.002 Pleural Neutrophils 82 Pleural Lymphocytes 7 Pleural Monocytes 4 Pleural Other Cells 7 Pleural Total Protein 1.1 Pleural LDH 174 Pleural Glucose 163 07/19/21 07/19/21 07/19/21 21:57 21:58 21:58 WBC 6.9 RBC 3.30 L Hgb 9.5 L Hct 28.6 L MCV 86.7 MCH 28.8 MCHC 33.2 RDW 13.9 Plt Count 311 MPV 11.7 Immature Gran % (Auto) 0.9 H Neut % (Auto) 90.7 H Lymph % (Auto) 6.4 L [place] % (Auto) 1.9 L Eos % (Auto) 0.0 Baso % (Auto) 0.1 Lymph # (Auto) 0.4 L [place] # (Auto) 0.1 Eos # (Auto) 0.0 Baso # (Auto) 0.0 Abs Immat Gran (auto) 0.06 H Absolute Neuts (auto) 6.3 Absolute Nucleated RBC 0.000 Nucleated RBC % (auto) 0.0 Neutrophils % (Manual) Band Neutrophils % Lymphocytes % (Manual) Monocytes % (Manual) Abs Neuts (Manual) Platelet Estimate Plt Morphology Comment RBC Morphology Microcytosis Macrocytosis Reggie Cells Smear Tech's Comments VERIFIED Smear Path Review PT INR APTT aPTT Heparin Protocol Fibrinogen Sodium Potassium Chloride Carbon Dioxide Anion Gap BUN Creatinine Estim Creat Clear Calc Estimated GFR POC Glucose Random Glucose Fasting Glucose Lactic Acid 2.5 H* Lactic Acid F/U @ 2Hr Lactic Acid F/U @ 4Hr Calcium Total Bilirubin AST ALT Alkaline Phosphatase Troponin I High Sens 4164.1 H* D B-Natriuretic Peptide Total Protein Albumin Pleural WBC Pleural RBC Pleural Neutrophils Pleural Lymphocytes Pleural Monocytes Pleural Other Cells Pleural Total Protein Pleural LDH Pleural Glucose 07/19/21 07/19/21 07/20/21 21:58 23:00 00:21 WBC RBC Hgb Hct MCV MCH MCHC RDW Plt Count MPV Immature Gran % (Auto) Neut % (Auto) Lymph % (Auto) [place] % (Auto) Eos % (Auto) Baso % (Auto) Lymph # (Auto) [place] # (Auto) Eos # (Auto) Baso # (Auto) Abs Immat Gran (auto) Absolute Neuts (auto) Absolute Nucleated RBC Nucleated RBC % (auto) Neutrophils % (Manual) Band Neutrophils % Lymphocytes % (Manual) Monocytes % (Manual) Abs Neuts (Manual) Platelet Estimate Plt Morphology Comment RBC Morphology Microcytosis Macrocytosis Reggie Cells Smear Tech's Comments Smear Path Review PT 17.2 H INR 1.5 H APTT aPTT Heparin Protocol 27.2 L Fibrinogen Sodium 131 L Potassium 4.4 Chloride 101 Carbon Dioxide 14 L Anion Gap 20 BUN 29 H Creatinine 2.10 H Estim Creat Clear Calc 15.6 Estimated GFR 23 POC Glucose Random Glucose 263 H Fasting Glucose Lactic Acid Lactic Acid F/U @ 2Hr 2.6 H* Lactic Acid F/U @ 4Hr Calcium 8.8 Total Bilirubin 1.0 AST 199 H ALT 182 H Alkaline Phosphatase 142 H Troponin I High Sens B-Natriuretic Peptide Total Protein 5.8 L Albumin 3.1 L Pleural WBC Pleural RBC Pleural Neutrophils Pleural Lymphocytes Pleural Monocytes Pleural Other Cells Pleural Total Protein Pleural LDH Pleural Glucose 07/20/21 07/20/21 07/20/21 02:18 02:51 06:57 WBC RBC Hgb Hct MCV MCH MCHC RDW Plt Count MPV Immature Gran % (Auto) Neut % (Auto) Lymph % (Auto) [place] % (Auto) Eos % (Auto) Baso % (Auto) Lymph # (Auto) [place] # (Auto) Eos # (Auto) Baso # (Auto) Abs Immat Gran (auto) Absolute Neuts (auto) Absolute Nucleated RBC Nucleated RBC % (auto) Neutrophils % (Manual) Band Neutrophils % Lymphocytes % (Manual) Monocytes % (Manual) Abs Neuts (Manual) Platelet Estimate Plt Morphology Comment RBC Morphology Microcytosis Macrocytosis Reggie Cells Smear Tech's Comments Smear Path Review PT INR APTT aPTT Heparin Protocol 47.5 L D Fibrinogen Sodium Potassium Chloride Carbon Dioxide Anion Gap BUN Creatinine Estim Creat Clear Calc Estimated GFR POC Glucose Random Glucose Fasting Glucose Lactic Acid Lactic Acid F/U @ 2Hr Lactic Acid F/U @ 4Hr 2.0 Calcium Total Bilirubin AST ALT Alkaline Phosphatase Troponin I High Sens 4213.8 H* B-Natriuretic Peptide Total Protein Albumin Pleural WBC Pleural RBC Pleural Neutrophils Pleural Lymphocytes Pleural Monocytes Pleural Other Cells Pleural Total Protein Pleural LDH Pleural Glucose 07/20/21 07/20/21 07/20/21 06:57 06:57 06:57 WBC RBC Hgb Hct MCV MCH MCHC RDW Plt Count MPV Immature Gran % (Auto) Neut % (Auto) Lymph % (Auto) [place] % (Auto) Eos % (Auto) Baso % (Auto) Lymph # (Auto) [place] # (Auto) Eos # (Auto) Baso # (Auto) Abs Immat Gran (auto) Absolute Neuts (auto) Absolute Nucleated RBC Nucleated RBC % (auto) Neutrophils % (Manual) Band Neutrophils % Lymphocytes % (Manual) Monocytes % (Manual) Abs Neuts (Manual) Platelet Estimate Plt Morphology Comment RBC Morphology Microcytosis Macrocytosis Reggie Cells Smear Tech's Comments Smear Path Review PT 15.7 H INR 1.4 H APTT aPTT Heparin Protocol Fibrinogen Sodium 131 L Potassium 4.3 Chloride 103 Carbon Dioxide 16 L Anion Gap 16 BUN 32 H Creatinine 2.27 H Estim Creat Clear Calc 14.4 Estimated GFR 21 POC Glucose Random Glucose Fasting Glucose 164 H Lactic Acid Lactic Acid F/U @ 2Hr Lactic Acid F/U @ 4Hr Calcium 8.3 L Total Bilirubin AST ALT Alkaline Phosphatase Troponin I High Sens B-Natriuretic Peptide 2792 H Total Protein Albumin Pleural WBC Pleural RBC Pleural Neutrophils Pleural Lymphocytes Pleural Monocytes Pleural Other Cells Pleural Total Protein Pleural LDH Pleural Glucose 07/20/21 07:07 WBC RBC Hgb Hct MCV MCH MCHC RDW Plt Count MPV Immature Gran % (Auto) Neut % (Auto) Lymph % (Auto) [place] % (Auto) Eos % (Auto) Baso % (Auto) Lymph # (Auto) [place] # (Auto) Eos # (Auto) Baso # (Auto) Abs Immat Gran (auto) Absolute Neuts (auto) Absolute Nucleated RBC Nucleated RBC % (auto) Neutrophils % (Manual) Band Neutrophils % Lymphocytes % (Manual) Monocytes % (Manual) Abs Neuts (Manual) Platelet Estimate Plt Morphology Comment RBC Morphology Microcytosis Macrocytosis Pray Cells Smear Tech's Comments Smear Path Review PT INR APTT aPTT Heparin Protocol Fibrinogen Sodium Potassium Chloride Carbon Dioxide Anion Gap BUN Creatinine Estim Creat Clear Calc Estimated GFR POC Glucose 182 H Random Glucose Fasting Glucose Lactic Acid Lactic Acid F/U @ 2Hr Lactic Acid F/U @ 4Hr Calcium Total Bilirubin AST ALT Alkaline Phosphatase Troponin I High Sens B-Natriuretic Peptide Total Protein Albumin Pleural WBC Pleural RBC Pleural Neutrophils Pleural Lymphocytes Pleural Monocytes Pleural Other Cells Pleural Total Protein Pleural LDH Pleural Glucose Imaging Radiologist's impression: Impressions Chest X-Ray 07/19/21 17:18 IMPRESSION: No pneumothorax post left-sided thoracentesis. Decreased volume left pleural effusion since prior study CT scan abdomen pelvis 07/17/2021. Chest X-Ray 07/19/21 22:10 IMPRESSION: Moderate right and small left pleural effusions with superjacent hazy opacities with mild interval increased suggesting layering of pleural fluid and atelectasis. Infiltrates cannot be excluded. Chest CT 07/19/21 23:30 IMPRESSION: 1. Extensive consolidation within the left lower lobe. In the setting of recent left-sided thoracentesis, this could represent reexpansion pulmonary edema. In the proper clinical setting, pneumonia could also have this appearance. 2. Trace residual left pleural effusion noted. 3. Moderate right pleural effusion. Adjacent dense right lower lobe opacity is favored to at least partially be due to atelectasis. 4. Regions of groundglass opacity in the upper lobes, left greater than right, which could be secondary to edema or infection. 5. Interlobular septal thickening consistent with a component of interstitial edema. Assessment and Plan (1) Acute CT: Status: Acute Patient developed symptoms yesterday myocardial ischemia with EKG changes and troponin suggestive of acute myocardial infarction, non ST-elevation and subsequently developed acute pulmonary edema. She is high risk for cardiac com plication and cardiac morbidity and mortality given her presentation currently. In the past she has been referred for cardiac catheterization but she has elected for conservative management which she is doing again today. She has multiple comorbidities which makes a cardiac care also difficult including pancreatic cancer, frailty, chronic kidney disease as well as significant anemia. We discussed about her high risk for mortality from cardiac perspective and probably best approach to pursue invasive management. She currently declines to go to [facility] for the same. She reverse to pursue conservative medical management at this point time. Continue IV Lasix drip for or decongestion. Strict intake and output chart needs to be pursued. Continue IV heparin drip. Dual antiplatelet therapy. High-intensity statin therapy. Start on nitro paste to manage cardiac ischemia as well as heart failure as well as blood pressure. Will hold off on beta-duy does at this point time given her acute heart failure. Stat echocardiogram at bedside. I also placed a call to her son Andrei Carrillo, and was not able to speak to him and left a voicemail for him to call me back to discuss her mom's health and further treatment plan. Overall prognosis is guarded. Greater than 45 minutes was spent in managing her complex care. Procedures Date of Service Date of Service: 07/20/21
[2021-07-20] MEDS: Nitroglycerin 2 % Oint 1 GM Packet 0.5 INCH TRANSDERMA ×3 (10:47→20:37)
[2021-07-20 12:06] LABS: Glucose, Whole Blood 227 mg/dL (60-115)
[2021-07-20 16:23] LABS: Glucose, Whole Blood 128 mg/dL (60-115)
[2021-07-20] MEDS: Clopidogrel Bisulfate 75 MG TABLET PO (16:53)
[2021-07-20] MEDS: Aspirin Enteric Coated 81 MG TABLET.DR PO (16:53)
[2021-07-20] MEDS: Atorvastatin Calcium 40 MG TABLET PO (16:53)
--- NOTE | 2021-07-20 17:00 | CA_ITS ---
Transthoracic Echocardiogram Patient (Last, First, Middle): Barbara Julian, Gender: Female Date of : 1940 Age: 81 Procedure Date: 07/20/2021 Procedure Type: Transthoracic Echocardiogram Location: ICU Height: 152.4 cm Weight: 49.9 kg BSA: 1.45 m2 Heart Rate: bpm BP: 140 / 86 mmHg Postie: Referring MD: Kathi Virk MD Web Graphic Designer: Cj Parham MD Symptoms: acute KS, CHF Study Quality: Good ECG Rhythm: Sinus Conclusions: - 1. [id number] LV systolic dysfunction with underlying regional wall motion abnormality consistent with ischemic cardiomyopathy with grade 2 diastolic dysfunction 2. Moderate left atrial enlargement 3. At least moderate mitral regurgitation 4. Moderately elevated right ventricular systolic pressure with mildly elevated right atrial pressures 5. No gross pericardial effusion Findings Left Ventricle Normal left ventricular cavity size. There is normal left ventricular wall thickness. The left ventricular systolic function is mild to moderately decreased. The visually estimated ejection fraction is between 40-45%. There is mild global hypokinesis. Spectral Doppler is indicative of a pseudonormal filling pattern. E/E prime ratio is >15, consistent with elevated filling pressures. Evidence suggests grade II (moderate) diastolic dysfunction. Wall Motion Rest Echo Findings The inferoseptal wall is hypokinetic. The inferolateral wall, the basal inferior, mid inferior, and basal anterolateral segments are akinetic. All other scored wall segments showed normal motion. Right Ventricle Normal right ventricular cavity size and systolic function. Atria The left atrium is moderately dilated. There is no evidence of interatrial shunt. The right atrium is likely dilated. Aortic Valve There is mild calcification of the aortic valve. There is no aortic valve stenosis. There is no aortic valve regurgitation. Mitral Valve There is mild anterior and posterior mitral leaflet thickening. The posterior mitral leaflet has restricted mobility. There is moderate mitral valve regurgitation. There is no mitral valve stenosis. Pulmonic Valve The pulmonic valve was not well visualized. Tricuspid Valve Likely normal tricuspid valve structure and function. There is mild to moderate tricuspid valve regurgitation. The right ventricular systolic pressure is normal. Mildly elevated right atrial pressure. Moderate pulmonary hypertension is present. Great Vessels All visible segments of the aorta are normal in size. The pulmonary artery was not well visualized. Venous The inferior vena cava is normal in size and collapses less than 50% with inspiration. Pericardium/Pleural There is no evidence of pericardial effusion. There is a moderate bilateral pleural effusion. Prior Study Comparison Changes noted compared to prior study dated: 05/14/2020. RV systolic pressure is increased. Mitral regurgitation appears to be moderate Measurements 2D Linear Measurements IVSd: 0.92 0.6-0.9/0.6-1.0 cm LVIDd: 5.40 3.9-5.3/4.2-5.9 cm LVIDd Index: 3.72 2.4-3.2/2.2-3.1 cm/m2 LVIDs: 4.38 2.0-3.6 cm LVPWd: 0.99 0.7-1.1 cm Ao Root: 3.00 2.1-3.5 cm LA Diam: 3.90 2.7-3.8/3.0-4.0 cm LAIDs Index: 2.69 1.5-2.3 cm/m2 LV Mass: 242.48 67-162/88-224 g LV Mass Index: 167.23 43-95/49-115 g/m2 LVOT Diam: 2.00 3.0+(-)1.3 cm 2D Systolic Function EF 4C: 52.00 >55% EF 2C: 36.00 >55% EF BiP: 42.10 >55% Mitral Valve MV Pk E: 1.02 MV PK A: 0.83 MV Decel Time: 112.00 E/A: 1.20 E'Lateral: 7.07 E'Medial: 5.11 E/E' Med: 20.00 E/E' Lat: 14.40 PHT: 33.00 MVA PHT: 6.67 Decel [place]: 9.08 MR Vol - PW Dopp: 35.20 MR VTI: 1.60 MR ERO: 22.00 MR Alias Walter: 0.39 MR RAD: 0.70 Aortic Valve AoV Pk Walter: 1.48 AoV Mn Walter: 0.95 AoV VTI: 0.27 AoV Pk Grad: 9.00 Aov Mn Grad: 4.00 ALEXANDER Cont.VTI: 1.31 LVOT LVOT Pk Walter: 0.63 LVOT Mn Walter: 0.41 LVOT VTI: 0.11 LVOT Pk Grad: 2.00 LVOT Mn Grad: 1.00 LVOT Diam: 2.00 LVOT Area: 3.14 Diastolic Function MV Pk E: 1.02 MV Pk A: 0.83 E/A: 1.20 E'Medial: 5.11 E/E' Med: 20.00 E' Laterial: 7.07 E/E' Lat: 14.40 Right Ventricle TAPSE (mm): 20.70 Tricuspid Valve TR Pk Walter: 3.36 TR Pk Grad: 45.00 RA Press: 8.00 RVSP: 53.00 Great Vessels Aorta Ao Root-2D: 3.00 2.0-3.7 cm Sinus of Valsalva: 3.00 2.0-3.5 cm Ao Asc: 3.20 2.1-3.4 cm Pulmonary Valve PV Pk Walter: 0.63 Peak PV Grad: 2.00 Updated in Other Vendor System with Status of Final Cj Parham MD electronically signed on 07/20/2021 3:37:58 PM with status of Final
--- NOTE | 2021-07-20 17:18 | PM.CNPUL ---
History of Present Illness History of Present Illness Consult date: 07/20/21 Requesting physician: Kathi Virk Reason for consult: hypoxemia, pneumonia and pleural effusion Chief complaint: Abdominal pain Narrative: This 81 years old female has been admitted because of increased shortness of breath and marked generalized weakness, Initially she did have a low low-grade fever. Since her admission her workup has indicated ischemic cardiac disease and congestive heart failure with moderate-sized effusion on the left side. Patient has responded to diuresis starting to feel better in general. She has had left thoracenteses, the fluid is transudate, and she does not have any fever or chills. Past medical history does not indicate any chronic lung disease. She has multiple comorbidities, including coronary artery disease Diabetes mellitus, diabetic neuropathy, gastroparesis, chronic GERD symptoms, chronic pancreatic insufficiency, irritable bowel syndrome and more. Recent diagnosis of pancreatic cancer, in April 2021, diagnosed at [facility] by ultrasound-guided needle biopsy. Patient has been started to on chemotherapy, She had 1 cycle so for off GEMZAR ABRAXANE , and afterwards has had nausea vomiting and nonspecific GI symptoms. Review of Systems Review of Systems: Yes Unobtainable due to mental condition [facility] Past Medical History Medical History (Updated 07/20/21 @ 17:32 by Marianela Ignacio MD) Anemia Arthritis Atherosclerotic cardiovascular disease Atypical pneumonia CAD (coronary artery disease) Chest pain CHF (congestive heart failure) CKD (chronic kidney disease) Depression Diabetes Essential hypertension HLD (hyperlipidemia) HTN (hypertension) Pancreatic cancer Pleural effusion Precordial chest pain Respiratory failure with hypoxia Family History Family History Father Colon cancer Myocardial infarction Mother Uterine cancer Surgical History Surgical History History of History of esophagogastroduodenoscopy (EGD) History of hysteroscopy Hx of cholecystectomy Hx of colonoscopy Hx of eye surgery Social History Social History Household Members: Family Housing: House Do you presently have visiting nurse or other home services: No Alcohol intake: never Patient Tobacco Use Status: Never used Tobacco Second Hand Smoke Exposure: No Use of substances other than those prescribed or required for medical reasons: No Currently Displaying Signs/Symptoms of Drug Intoxication Withdrawal: No Advance Directives: No Advance Directives Information Provided: No Advance Directives Date on File: 05/14/20 Do you have thoughts of harming others: None Do you have a plan to hurt others: No Plan How much weight loss: 14-23 pounds service: No Current occupational status: disabled Sexual orientation: Straight/Heterosexual Gender identity: Female Meds Allergies Allergy/AdvReac Type Severity Reaction Status Date / Time prochlorperazine Allergy Severe SEIZURE Verified 07/17/21 18:49 adhesive tape [ADHESIVE TAPE] Allergy Intermediate RASH Verified 07/17/21 18:49 latex [LATEX] Allergy Intermediate RASH Verified 07/17/21 18:49 clarithromycin Allergy Mild RASH Verified 07/17/21 18:49 hydrochlorothiazide Allergy Mild RASH Verified 07/17/21 18:49 metoclopramide [From Reglan] AdvReac Severe SEIZURES Verified 07/17/21 18:49 milk [MILK] AdvReac Intermediate GI UPSET Verified 07/17/21 18:49 ibuprofen AdvReac Unknown unknown Verified 07/17/21 18:49 BIAXIN Allergy Intermediate RASH Uncoded 05/19/21 13:30 Active Medications: Current Medications Aspirin (Aspirin Enteric Coated 81 Mg Tablet.) 81 mg PO BEDTIME [facility] Last Admin: 07/20/21 16:53 Dose: 81 mg Documented by: Atorvastatin Calcium (Atorvastatin Calcium 40 Mg Tablet) 40 mg PO DAILY [facility] Last Admin: 07/20/21 16:53 Dose: 40 mg Documented by: Benzonatate (Benzonatate 100 Mg Capsule) 100 mg PO TID PRN PRN Reason: Cough Last Admin: 07/19/21 22:48 Dose: 100 mg Documented by: Clonazepam (Clonazepam 0.5 Mg Tablet) 0.5 mg PO BID [facility] Last Admin: 07/20/21 08:39 Dose: 0.5 mg Documented by: Clopidogrel Bisulfate (Clopidogrel Bisulfate 75 Mg Tablet) 75 mg PO DAILY [facility] Last Admin: 07/20/21 16:53 Dose: 75 mg Documented by: Dextrose (Dextrose 50 % 25 Gm/50 Ml Syringe) 25 gm IVPUSH Q15M PRN; Protocol PRN Reason: per Hypoglycemia Standing Ord. Furosemide (Furosemide 20 Mg/2 Ml Vial) 40 mg IVPUSH Q12H DAVID; Protocol Last Admin: 07/20/21 08:42 Dose: Not Given Documented by: Glucose (Glucose Gel 15 Gm Gel..Gram.) 15 gm PO Q15M PRN; Protocol PRN Reason: per Hypoglycemia Standing Ord. Heparin Sodium (Porcine) (Heparin Sodium,Porcine 5,000 Unit/Ml Vial) 2,000 unit 40 unit/kg (2000 unit) IVPUSH PROTOCOL BOLUS PRN; Protocol PRN Reason: 40 unit/kg - Heparin Protocol Last Admin: 07/20/21 14:44 Dose: 2,000 unit Documented by: Heparin Sodium (Porcine) (Heparin Sodium,Porcine 5,000 Unit/Ml Vial) 4,000 unit 80 unit/kg (4000 unit) IVPUSH PROTOCOL BOLUS PRN; Protocol PRN Reason: 80 unit/kg - Heparin Protocol Hydromorphone HCl (Hydromorphone Hcl 1 Mg/Ml Syringe) 0.5 mg IVPUSH Q4H PRN; Protocol PRN Reason: Pain, Severe (Pain Scale 7-10) Last Admin: 07/19/21 22:06 Dose: 0.5 mg Documented by: Heparin Sodium/Sodium Chloride () 25,000 unit in 250 mls @ 0 mls/hr IVCONT .Q0M [facility]; Protocol Last Titration: 07/20/21 14:44 Dose: 18 units/kg/hr, 8.98 mls/hr Documented by: Furosemide 200 mg/ Sodium (Chloride) 100 mls @ 5 mls/hr IVCONT .Q20H [facility] Insulin Human Lispro (Insulin Lispro 100 Unit/Ml 3 Ml Vial) 0 unit SUBCUT QIDACHS [facility]; Protocol Last Admin: 07/20/21 17:04 Dose: Not Given Documented by: Melatonin (Melatonin 3 Mg Tablet) 6 mg PO BEDTIME PRN PRN Reason: Insomnia Last Admin: 07/18/21 22:47 Dose: 6 mg Documented by: Nitroglycerin (Nitroglycerin 2 % Oint 1 Gm Packet) 0.5 inch TRANSDERMA Q6H [facility] Last Admin: 07/20/21 14:45 Dose: 0.5 inch Documented by: Omeprazole (Omeprazole 20 Mg Capsule.) 20 mg PO BID@0630,1630 [facility] Last Admin: 07/20/21 16:53 Dose: 20 mg Documented by: Ondansetron HCl (Ondansetron Hcl 4 Mg/2 Ml Vial) 4 mg IVPUSH Q8H PRN PRN Reason: Nausea and Vomiting Last Admin: 07/19/21 13:32 Dose: 4 mg Documented by: Pharmacy Consult (Consult Rx Perform Med Rec) 1 each MISCELLANE ONCE PRN PRN Reason: Consult order Senna (Sennosides 8.6 Mg Tablet) 17.2 mg PO DAILY [facility] Last Admin: 07/20/21 08:38 Dose: 17.2 mg Documented by: Sertraline HCl (Sertraline Hcl 100 Mg Tablet) 200 mg PO DAILY [facility] Last Admin: 07/20/21 08:39 Dose: 200 mg Documented by: Simethicone (Simethicone 80 Mg Tab.Chew) 80 mg PO DAILY PRN PRN Reason: Gas Sodium Chloride (0.9 % Sodium Chloride Flush 3 Ml Syringe) 3 ml IVFLUSH QSHIFT [facility] Last Admin: 07/20/21 17:04 Dose: Not Given Documented by: Tolterodine Tartrate (Tolterodine Tartrate La 2 Mg Cap.Er.24h) 2 mg PO DAILY [facility] Last Admin: 07/20/21 08:43 Dose: 2 mg Documented by: Home Medications Medication Instructions Recorded Confirmed Last Taken Type amlodipine 5 mg tablet 5 mg PO BEDTIME 07/18/21 07/18/21 Unknown History aspirin 81 mg tablet,delayed 81 mg PO DAILY 07/18/21 07/18/21 Unknown History release clonazepam 0.5 mg tablet 0.5 mg PO BID 07/18/21 07/18/21 Unknown History lisinopril 20 mg tablet 40 mg PO DAILY 07/18/21 07/18/21 Unknown History ondansetron 8 mg disintegrating 8 mg PO Q8H PRN 07/18/21 07/18/21 Unknown History tablet pantoprazole 40 mg tablet,delayed 40 mg PO DAILY 07/18/21 07/18/21 Unknown History release sennosides 8.6 mg tablet (senna) 17.2 mg PO DAILY 07/18/21 07/18/21 Unknown History sertraline 100 mg tablet 200 mg PO DAILY 07/18/21 07/18/21 Unknown History simethicone 125 mg capsule (Gas 125 mg PO NEEDED 07/18/21 07/18/21 Unknown History Relief Extra Strength) tolterodine 2 mg capsule,extended 2 mg PO DAILY 07/18/21 07/18/21 Unknown History release 24 hr Physical Exam Vital Signs: Vital Signs: Last Vital Signs Temp 98.1 F 07/20/21 16:00 Pulse 93 07/20/21 16:00 Resp 18 07/20/21 16:00 BP 125/74 07/20/21 16:00 Pulse Ox 93 07/20/21 16:00 BMI result Body Mass Index 21.4 Const: General: comfortable, no acute distress, alert and awake Orientation/consciousness: patient oriented x3 HEENT: Head: Yes normal to inspection General nose exam: No nasal polyps present and No nasal discharge present Face and sinus: Yes sinuses nontender Mouth: oropharynx normal Throat: Yes posterior oropharynx normal Eyes: General: appearance normal, both eyes and all related structures Neck: Neck: Yes normal visual inspection, Yes no lymphadenopathy, Yes trachea midline and Yes no JVD Thyroid: Thyroid normal Chest: Chest palpation & inspection: normal inspection of the chest, normal palpation of entire chest wall and no tenderness Resp: Other: Percussion note resonant, breath sounds are generally diminished especially over both bases, There are inspiratory crackles over left lower lobe and right base. Cardio: Palpation: normal PMI Rate: regular rate Rhythm: regular rhythm Heart sounds: no gallops and no murmurs GI: Palpation (GI): Soft to palpation, nontender, No hepatosplenomegaly present and no masses Auscultation: normal bowel sounds Back/Spine/Pelvis: Other: Not examine Skin: General skin exam: no rashes or lesions noted Neuro: General: patient oriented x3 and no focal motor deficits Cranial nerves: Yes CN's II-XII intact bilaterally Extrem: General: Yes normal to inspection, Yes no clubbing, cyanosis or edema and Yes no calf tenderness Psych: Speech and movement: Normal speech and movement present Results Laboratory Findings CBC and BMP: 07/19/21 21:58 07/20/21 06:57 ABG, PT/INR, D-dimer: PT/INR, D-dimer PT 15.7 SEC (9.9-13.0) H 07/20/21 06:57 INR 1.4 (0.9-1.1) H 07/20/21 06:57 Abnormal lab findings: Abnormal Labs 07/17/21 07/17/21 07/18/21 20:55 20:55 01:21 RBC 2.86 L Hgb 8.4 L Hct 24.9 L MPV Immature Gran % (Auto) Neut % (Auto) Lymph % (Auto) [place] % (Auto) Lymph # (Auto) [place] # (Auto) Abs Immat Gran (auto) Neutrophils % (Manual) 99 H Band Neutrophils % Lymphocytes % (Manual) 1 L Monocytes % (Manual) Abs Neuts (Manual) 10.0 H Lymphocytes # (Manual) 0.1 L PT INR aPTT Heparin Protocol Fibrinogen Sodium 128 L Carbon Dioxide Anion Gap BUN 20 H Creatinine 1.86 H POC Glucose Random Glucose 370 H* Fasting Glucose Lactic Acid Lactic Acid F/U @ 2Hr Calcium 8.0 L AST 153 H ALT 195 H Alkaline Phosphatase 126 H Lactate Dehydrogenase Troponin I High Sens B-Natriuretic Peptide Total Protein 5.3 L Albumin 2.7 L Lipase < 4 L Urine Protein 2+ H Urine Glucose (UA) 250 H Urine Blood 1+ H 07/18/21 07/18/21 07/18/21 04:09 04:09 07:36 RBC 2.87 L Hgb 8.2 L Hct 25.0 L MPV 12.6 H Immature Gran % (Auto) 0.6 H Neut % (Auto) 93.8 H Lymph % (Auto) 4.9 L [place] % (Auto) 0.4 L Lymph # (Auto) 0.4 L [place] # (Auto) 0.0 L Abs Immat Gran (auto) 0.05 H Neutrophils % (Manual) Band Neutrophils % Lymphocytes % (Manual) Monocytes % (Manual) Abs Neuts (Manual) Lymphocytes # (Manual) PT INR aPTT Heparin Protocol Fibrinogen Sodium 130 L Carbon Dioxide Anion Gap 11 L BUN 19 H Creatinine 1.71 H POC Glucose 154 H Random Glucose 215 H Fasting Glucose Lactic Acid Lactic Acid F/U @ 2Hr Calcium 7.9 L AST ALT Alkaline Phosphatase Lactate Dehydrogenase Troponin I High Sens B-Natriuretic Peptide Total Protein Albumin Lipase Urine Protein Urine Glucose (UA) Urine Blood 07/18/21 07/18/21 07/18/21 15:11 16:33 20:31 RBC Hgb Hct MPV Immature Gran % (Auto) Neut % (Auto) Lymph % (Auto) [place] % (Auto) Lymph # (Auto) [place] # (Auto) Abs Immat Gran (auto) Neutrophils % (Manual) Band Neutrophils % Lymphocytes % (Manual) Monocytes % (Manual) Abs Neuts (Manual) Lymphocytes # (Manual) PT INR aPTT Heparin Protocol Fibrinogen Sodium Carbon Dioxide Anion Gap BUN Creatinine POC Glucose 138 H 141 H 158 H Random Glucose Fasting Glucose Lactic Acid Lactic Acid F/U @ 2Hr Calcium AST ALT Alkaline Phosphatase Lactate Dehydrogenase Troponin I High Sens B-Natriuretic Peptide Total Protein Albumin Lipase Urine Protein Urine Glucose (UA) Urine Blood 07/19/21 07/19/21 07/19/21 07:18 08:39 08:39 RBC Hgb 9.8 L Hct 29.8 L MPV Immature Gran % (Auto) Neut % (Auto) Lymph % (Auto) [place] % (Auto) Lymph # (Auto) [place] # (Auto) Abs Immat Gran (auto) Neutrophils % (Manual) Band Neutrophils % Lymphocytes % (Manual) Monocytes % (Manual) Abs Neuts (Manual) Lymphocytes # (Manual) PT INR aPTT Heparin Protocol Fibrinogen Sodium 133 L Carbon Dioxide 17 L Anion Gap BUN 23 H Creatinine 1.96 H POC Glucose 128 H Random Glucose 151 H Fasting Glucose Lactic Acid Lactic Acid F/U @ 2Hr Calcium AST 192 H ALT 188 H Alkaline Phosphatase 143 H Lactate Dehydrogenase 413 H Troponin I High Sens B-Natriuretic Peptide Total Protein 5.7 L Albumin 2.8 L Lipase Urine Protein Urine Glucose (UA) Urine Blood 07/19/21 07/19/21 07/19/21 08:39 09:23 11:37 RBC Hgb Hct MPV Immature Gran % (Auto) Neut % (Auto) Lymph % (Auto) [place] % (Auto) Lymph # (Auto) [place] # (Auto) Abs Immat Gran (auto) Neutrophils % (Manual) Band Neutrophils % Lymphocytes % (Manual) Monocytes % (Manual) Abs Neuts (Manual) Lymphocytes # (Manual) PT 25.6 H INR 2.2 H aPTT Heparin Protocol Fibrinogen > 700 H Sodium Carbon Dioxide Anion Gap BUN Creatinine POC Glucose 145 H Random Glucose 152 H Fasting Glucose Lactic Acid Lactic Acid F/U @ 2Hr Calcium AST ALT Alkaline Phosphatase Lactate Dehydrogenase Troponin I High Sens B-Natriuretic Peptide Total Protein Albumin Lipase Urine Protein Urine Glucose (UA) Urine Blood 07/19/21 07/19/21 07/19/21 13:56 13:56 15:54 RBC 3.28 L Hgb 9.5 L Hct 28.5 L MPV Immature Gran % (Auto) Neut % (Auto) Lymph % (Auto) [place] % (Auto) Lymph # (Auto) [place] # (Auto) Abs Immat Gran (auto) Neutrophils % (Manual) 96 H Band Neutrophils % 0 L Lymphocytes % (Manual) 3 L Monocytes % (Manual) 1 L Abs Neuts (Manual) Lymphocytes # (Manual) PT INR aPTT Heparin Protocol Fibrinogen Sodium Carbon Dioxide Anion Gap BUN Creatinine POC Glucose 159 H Random Glucose Fasting Glucose Lactic Acid Lactic Acid F/U @ 2Hr Calcium AST ALT Alkaline Phosphatase Lactate Dehydrogenase Troponin I High Sens B-Natriuretic Peptide 1940 H Total Protein Albumin Lipase Urine Protein Urine Glucose (UA) Urine Blood 07/19/21 07/19/21 07/19/21 21:02 21:57 21:58 RBC 3.30 L Hgb 9.5 L Hct 28.6 L MPV Immature Gran % (Auto) 0.9 H Neut % (Auto) 90.7 H Lymph % (Auto) 6.4 L [place] % (Auto) 1.9 L Lymph # (Auto) 0.4 L [place] # (Auto) Abs Immat Gran (auto) 0.06 H Neutrophils % (Manual) Band Neutrophils % Lymphocytes % (Manual) Monocytes % (Manual) Abs Neuts (Manual) Lymphocytes # (Manual) PT INR aPTT Heparin Protocol Fibrinogen Sodium Carbon Dioxide Anion Gap BUN Creatinine POC Glucose 230 H Random Glucose Fasting Glucose Lactic Acid 2.5 H* Lactic Acid F/U @ 2Hr Calcium AST ALT Alkaline Phosphatase Lactate Dehydrogenase Troponin I High Sens B-Natriuretic Peptide Total Protein Albumin Lipase Urine Protein Urine Glucose (UA) Urine Blood 07/19/21 07/19/21 07/19/21 21:58 21:58 23:00 RBC Hgb Hct MPV Immature Gran % (Auto) Neut % (Auto) Lymph % (Auto) [place] % (Auto) Lymph # (Auto) [place] # (Auto) Abs Immat Gran (auto) Neutrophils % (Manual) Band Neutrophils % Lymphocytes % (Manual) Monocytes % (Manual) Abs Neuts (Manual) Lymphocytes # (Manual) PT 17.2 H INR 1.5 H aPTT Heparin Protocol 27.2 L Fibrinogen Sodium 131 L Carbon Dioxide 14 L Anion Gap BUN 29 H Creatinine 2.10 H POC Glucose Random Glucose 263 H Fasting Glucose Lactic Acid Lactic Acid F/U @ 2Hr Calcium AST 199 H ALT 182 H Alkaline Phosphatase 142 H Lactate Dehydrogenase Troponin I High Sens 4164.1 H* D B-Natriuretic Peptide Total Protein 5.8 L Albumin 3.1 L Lipase Urine Protein Urine Glucose (UA) Urine Blood 07/20/21 07/20/21 07/20/21 00:21 02:18 06:57 RBC Hgb Hct MPV Immature Gran % (Auto) Neut % (Auto) Lymph % (Auto) [place] % (Auto) Lymph # (Auto) [place] # (Auto) Abs Immat Gran (auto) Neutrophils % (Manual) Band Neutrophils % Lymphocytes % (Manual) Monocytes % (Manual) Abs Neuts (Manual) Lymphocytes # (Manual) PT INR aPTT Heparin Protocol 47.5 L D Fibrinogen Sodium Carbon Dioxide Anion Gap BUN Creatinine POC Glucose Random Glucose Fasting Glucose Lactic Acid Lactic Acid F/U @ 2Hr 2.6 H* Calcium AST ALT Alkaline Phosphatase Lactate Dehydrogenase Troponin I High Sens 4213.8 H* B-Natriuretic Peptide Total Protein Albumin Lipase Urine Protein Urine Glucose (UA) Urine Blood 07/20/21 07/20/21 07/20/21 06:57 06:57 06:57 RBC Hgb Hct MPV Immature Gran % (Auto) Neut % (Auto) Lymph % (Auto) [place] % (Auto) Lymph # (Auto) [place] # (Auto) Abs Immat Gran (auto) Neutrophils % (Manual) Band Neutrophils % Lymphocytes % (Manual) Monocytes % (Manual) Abs Neuts (Manual) Lymphocytes # (Manual) PT 15.7 H INR 1.4 H aPTT Heparin Protocol Fibrinogen Sodium 131 L Carbon Dioxide 16 L Anion Gap BUN 32 H Creatinine 2.27 H POC Glucose Random Glucose Fasting Glucose 164 H Lactic Acid Lactic Acid F/U @ 2Hr Calcium 8.3 L AST ALT Alkaline Phosphatase Lactate Dehydrogenase Troponin I High Sens B-Natriuretic Peptide 2792 H Total Protein Albumin Lipase Urine Protein Urine Glucose (UA) Urine Blood 07/20/21 07/20/21 07/20/21 07:07 12:02 13:59 RBC Hgb Hct MPV Immature Gran % (Auto) Neut % (Auto) Lymph % (Auto) [place] % (Auto) Lymph # (Auto) [place] # (Auto) Abs Immat Gran (auto) Neutrophils % (Manual) Band Neutrophils % Lymphocytes % (Manual) Monocytes % (Manual) Abs Neuts (Manual) Lymphocytes # (Manual) PT INR aPTT Heparin Protocol 52.0 L Fibrinogen Sodium Carbon Dioxide Anion Gap BUN Creatinine POC Glucose 182 H 227 H Random Glucose Fasting Glucose Lactic Acid Lactic Acid F/U @ 2Hr Calcium AST ALT Alkaline Phosphatase Lactate Dehydrogenase Troponin I High Sens B-Natriuretic Peptide Total Protein Albumin Lipase Urine Protein Urine Glucose (UA) Urine Blood 07/20/21 16:19 RBC Hgb Hct MPV Immature Gran % (Auto) Neut % (Auto) Lymph % (Auto) [place] % (Auto) Lymph # (Auto) [place] # (Auto) Abs Immat Gran (auto) Neutrophils % (Manual) Band Neutrophils % Lymphocytes % (Manual) Monocytes % (Manual) Abs Neuts (Manual) Lymphocytes # (Manual) PT INR aPTT Heparin Protocol Fibrinogen Sodium Carbon Dioxide Anion Gap BUN Creatinine POC Glucose 128 H Random Glucose Fasting Glucose Lactic Acid Lactic Acid F/U @ 2Hr Calcium AST ALT Alkaline Phosphatase Lactate Dehydrogenase Troponin I High Sens B-Natriuretic Peptide Total Protein Albumin Lipase Urine Protein Urine Glucose (UA) Urine Blood Microbiology: Microbiology 07/19/21 17:00 Pleura Gram Stain - Final 07/19/21 17:00 [place] Anaerobic Culture - Preliminary No growth to date. 07/19/21 17:00 [place] Body Fluid Culture - Preliminary No growth to date. Diagnostic Findings CT scan - chest: report reviewed and image reviewed Assessment and Plan (1) Pancreatic cancer: Status: Acute (2) Abnormal LFTs: Status: Acute (3) Acute UT: Status: Acute (4) CHF (congestive heart failure): Status: Acute (5) Atypical pneumonia: Status: Acute (6) Respiratory failure with hypoxia: Status: Acute (7) Pleural effusion: Status: Acute Plan This elderly patient with multiple comorbidities, especially with recent diagnosis of adeno carcinoma of the pancreas, status 1 cycle of chemotherapy, As presented with increasing shortness of breath, and general weakness. Lap tests and CT scan of the chest or more consistent with congestive heart failure/pulmonary edema and bilateral pleural effusions especially on the left side. She is status post thoracenteses left chest with drainage of fluid which is TRANSUDATE, and again indicates congestive heart failure. Respiratory distress , is somewhat improved , she is oxygenating fairly well at 10 L/minute. Recc . There was possibility of atypical pneumonia, I do not think she needs to be treated with antibiotics. Continue oxygen supplementation with nasal cannula/mask, to maintain O2 sat above 90%, Continue adequate diuresis . Thank you very much for asthma to see this patient. Procedures Date of Service Date of Service: 07/20/21
[2021-07-20] MEDS: Benzonatate 100 MG CAPSULE PO (17:53)
[2021-07-20 20:07] LABS: Glucose, Whole Blood 165 mg/dL (60-115)
[2021-07-20] MEDS: Furosemide 20 MG/2 ML VIAL 40 MG IVPUSH (20:39)
[2021-07-20] MEDS: 0.9 % Sodium Chloride Flush 3 ML SYRINGE IVFLUSH (20:40)
[2021-07-20 20:45] LABS: PTT Heparin Drip 77.8 SEC (53-77.9)
[2021-07-21 03:38] VITALS: BP 142/74; PULSE 76; RESP 20; TEMP 36.8; O2SAT 98
[2021-07-21 04:06] LABS: Hematocrit 23.6 % (37.0-47.0); Mean Corpuscular HGB Conc 33.9 g/dl (31.0-35.0); Mean Corpuscular Volume 85.5 fL (80.0-98.0); Platelet Count 200 X10*3/uL (160-400); Red Blood Count 2.76 X10*6/uL (4.20-5.50); Red Cell Distribution Width 13.9 % (11.0-16.0); White Blood Count 7.2 X10*3/uL (4.8-10.8)
[2021-07-21 04:14] LABS: PTT Heparin Drip 35.1 SEC (53-77.9)
[2021-07-21 04:23] LABS: Anion Gap 16 (12-20); Blood Urea Nitrogen 41 mg/dL (9-16); Calcium 7.9 mg/dL (8.4-10.2); Carbon Dioxide 16 mmol/L (22-29); Chloride 100 mmol/L (96-108); Creatinine Clr Calc Pharmacy 12.2; Estimated Glomerular Filt Rate 17; Glucose Random 136 mg/dL (60-115); Potassium 3.4 mmol/L (3.3-5.1); Sodium 129 mmol/L (135-145)
[2021-07-21] MEDS: Heparin Sodium,Porcine 5,000 UNIT/ML VIAL 4000 UNIT IVPUSH (04:30)
[2021-07-21] MEDS: Heparin Sodium,Porcine/1/2NS 25,000 UNIT/250 ML IV.SOLN 10.98 UNIT IVCONT (04:31)
[2021-07-21] MEDS: Omeprazole 20 MG CAPSULE.DR PO ×2 (05:43→16:50)
[2021-07-21 07:28] LABS: Glucose, Whole Blood 133 mg/dL (60-115)
[2021-07-21 07:49] VITALS: BP 127/53; PULSE 91; RESP 20; TEMP 36.2; O2SAT 97
--- NOTE | 2021-07-21 08:15 | P.PNIM_ITS ---
Subjective Subjective Date of Service: 07/21/21 Interval History: chf , nstemi Review of Systems patient was short of breath seems improving and found to have also NSTEMI. ?patient says this morning shortness of breath or slightly better, denies any chest pain, has nonproductive cough. Physical Exam Vital Signs: Vital Signs: Last Vital Signs Temp 97.1 F 07/21/21 07:49 Pulse 91 07/21/21 07:49 Resp 20 07/21/21 07:49 BP 127/53 L 07/21/21 07:49 Pulse Ox 97 07/21/21 07:49 BMI result Body Mass Index 21.4 ? Appearance: Alert.? Oriented X3.? not in distress.? cvs: rrr, [id number] , no murmur res: air enrty diminshed ,sacttered rales at base. abd: no rebound or guarding ,nt, bs present. ext pulses present , no cyanosis. neuro: axo3 , nonfocal. Objective Data Active Medications Aspirin (Aspirin Enteric Coated 81 Mg Tablet.) 81 mg PO BEDTIME [facility] Last Admin: 07/20/21 16:53 Dose: 81 mg Documented by: JOSÉ Atorvastatin Calcium (Atorvastatin Calcium 40 Mg Tablet) 40 mg PO DAILY [facility] Last Admin: 07/20/21 16:53 Dose: 40 mg Documented by: JOSÉ Benzonatate (Benzonatate 100 Mg Capsule) 100 mg PO TID PRN PRN Reason: Cough Last Admin: 07/20/21 17:53 Dose: 100 mg Documented by: JOSÉ Clonazepam (Clonazepam 0.5 Mg Tablet) 0.5 mg PO BID [facility] Last Admin: 07/20/21 20:39 Dose: 0.5 mg Documented by: CAROLINE Clopidogrel Bisulfate (Clopidogrel Bisulfate 75 Mg Tablet) 75 mg PO DAILY [facility] Last Admin: 07/20/21 16:53 Dose: 75 mg Documented by: JOSÉ Dextrose (Dextrose 50 % 25 Gm/50 Ml Syringe) 25 gm IVPUSH Q15M PRN; Protocol PRN Reason: per Hypoglycemia Standing Ord. Glucose (Glucose Gel 15 Gm Gel..Gram.) 15 gm PO Q15M PRN; Protocol PRN Reason: per Hypoglycemia Standing Ord. Heparin Sodium (Porcine) (Heparin Sodium,Porcine 5,000 Unit/Ml Vial) 2,000 unit 40 unit/kg (2000 unit) IVPUSH PROTOCOL BOLUS PRN; Protocol PRN Reason: 40 unit/kg - Heparin Protocol Last Admin: 07/20/21 14:44 Dose: 2,000 unit Documented by: JOSÉ Heparin Sodium (Porcine) (Heparin Sodium,Porcine 5,000 Unit/Ml Vial) 4,000 unit 80 unit/kg (4000 unit) IVPUSH PROTOCOL BOLUS PRN; Protocol PRN Reason: 80 unit/kg - Heparin Protocol Last Admin: 07/21/21 04:30 Dose: 4,000 unit Documented by: CAROLINE Hydromorphone HCl (Hydromorphone Hcl 1 Mg/Ml Syringe) 0.5 mg IVPUSH Q4H PRN; P rotocol PRN Reason: Pain, Severe (Pain Scale 7-10) Last Admin: 07/19/21 22:06 Dose: 0.5 mg Documented by: DAVID Heparin Sodium/Sodium Chloride () 25,000 unit in 250 mls @ 0 mls/hr IVCONT .Q0M [facility]; Protocol Last Admin: 07/21/21 04:31 Dose: 22 units/kg/hr, 10.98 mls/hr Documented by: CAROLINE Cosigned by: SYLVIA Insulin Human Lispro (Insulin Lispro 100 Unit/Ml 3 Ml Vial) 0 unit SUBCUT QIDACHS [facility]; Protocol Last Admin: 07/21/21 07:32 Dose: Not Given Documented by: TOMAS Non-Admin Reason: No Insulin Coverage Melatonin (Melatonin 3 Mg Tablet) 6 mg PO BEDTIME PRN PRN Reason: Insomnia Last Admin: 07/18/21 22:47 Dose: 6 mg Documented by: DAVID Nitroglycerin (Nitroglycerin 2 % Oint 1 Gm Packet) 0.5 inch TRANSDERMA Q6H [facility] Last Admin: 07/21/21 05:42 Dose: Not Given Documented by: CAROLINE Non-Admin Reason: Patient Refused Omeprazole (Omeprazole 20 Mg Jake.) 20 mg PO BID@0630,1630 [facility] Last Admin: 07/21/21 05:43 Dose: 20 mg Documented by: CAROLINE Ondansetron HCl (Ondansetron Hcl 4 Mg/2 Ml Vial) 4 mg IVPUSH Q8H PRN PRN Reason: Nausea and Vomiting Last Admin: 07/19/21 13:32 Dose: 4 mg Documented by: WIL Pharmacy Consult (Consult Rx Perform Med Rec) 1 each MISCELLANE ONCE PRN PRN Reason: Consult order Senna (Sennosides 8.6 Mg Tablet) 17.2 mg PO DAILY [facility] Last Admin: 07/20/21 08:38 Dose: 17.2 mg Documented by: TOMAS Sertraline HCl (Sertraline Hcl 100 Mg Tablet) 200 mg PO DAILY [facility] Last Admin: 07/20/21 08:39 Dose: 200 mg Documented by: TOMAS Simethicone (Simethicone 80 Mg Tab.Chew) 80 mg PO DAILY PRN PRN Reason: Gas Sodium Chloride (0.9 % Sodium Chloride Flush 3 Ml Syringe) 3 ml IVFLUSH QSHIFT [facility] Last Admin: 07/20/21 20:40 Dose: 3 ml Documented by: CAROLINE Tolterodine Tartrate (Tolterodine Tartrate La 2 Mg Cap.Er.24h) 2 mg PO DAILY [facility] Last Admin: 07/20/21 08:43 Dose: 2 mg Documented by: TOMAS Labs CBC & Chem 7: 07/21/21 03:59 07/21/21 03:59 Labs: Laboratory Results - last 24 hr 07/17/21 07/20/21 07/20/21 20:55 12:02 13:59 MCV MCH MCHC RDW Plt Count MPV Absolute Nucleated RBC Nucleated RBC % (auto) Smear Path Review SEE NOTE aPTT Heparin Protocol 52.0 L Anion Gap Estim Creat Clear Calc Estimated GFR POC Glucose 227 H Random Glucose Calcium 07/20/21 07/20/21 07/20/21 16:19 19:58 20:20 MCV MCH MCHC RDW Plt Count MPV Absolute Nucleated RBC Nucleated RBC % (auto) Smear Path Review aPTT Heparin Protocol 77.8 D Anion Gap Estim Creat Clear Calc Estimated GFR POC Glucose 128 H 165 H Random Glucose Calcium 07/21/21 07/21/21 07/21/21 03:59 03:59 03:59 MCV 85.5 MCH 29.0 MCHC 33.9 RDW 13.9 Plt Count 200 D MPV 12.0 Absolute Nucleated RBC 0.000 Nucleated RBC % (auto) 0.0 Smear Path Review aPTT Heparin Protocol 35.1 L D Anion Gap 16 Estim Creat Clear Calc 12.2 Estimated GFR 17 POC Glucose Random Glucose 136 H Calcium 7.9 L 07/21/21 07:23 MCV MCH MCHC RDW Plt Count MPV Absolute Nucleated RBC Nucleated RBC % (auto) Smear Path Review aPTT Heparin Protocol Anion Gap Estim Creat Clear Calc Estimated GFR POC Glucose 133 H Random Glucose Calcium Microbiology Microbiology Results: Microbiology 07/19/21 17:00 Gram Stain - Final Pleura Anaerobic Culture - Preliminary No growth to date. Body Fluid Culture - Preliminary No growth to date. Assessment and Plan (1) Atypical pneumonia: Status: Acute (2) Acute NM: Status: Acute Plan 81-year-old female with a past medical history of hypertension, hyperlipidemia, diabetes, CAD, CKD, anxiety, depression, arthritis, history of pancreatic cancer on chemotherapy presented to the hospital today with a chief complaint of abdominal pain.? Nausea/vomiting /abdominal pain: likely related to chemoc, pancreatic cancer.? CT showed no acute finding, abd pain seems improved. Acute hypoxemic respiratory failure probably multifactorial( CHF, bilateral? effusions, atelactasis)/ntsemi iv lasix drip daily weight i/o moniter,? Incentive spirometry, chest physio, patient also had pleuritic tap yesterday. nstemi:started on dual platelet,iv heprin ,statin cardiology following Moderate hyponatremia:improving?Likely realted to malignance.? better today, fluid restriction and if not getting better, Nephro consult. History of CKD 3:? Creatinine at baseline.? History of diabetes:? Insulin sliding scale History of hypertension:? Continue home amlodipine, lisinopril Anemia of chronic disease H/H is stable. History of depression: Continue home sertraline DVT prophylaxis: Lovenox Inpatient need: Ongoing n/v, Hypoxia porb sec chf,nsetmi. Quality Stroke Does the patient have a stroke diagnosis?: No VTE Prior VTE?: No VTE Risk Level:: Medical - moderate - high VTE Device Contraindication: Treatment Not Indicated VTE Drug Contraindication: N/A - Med Ordered
[2021-07-21] MEDS: Tolterodine Tartrate LA 2 MG CAP.ER.24H PO (09:06)
[2021-07-21] MEDS: Furosemide 200 MG in 0.9 % Sodium Chloride 80 ML IVCONT (09:06)
[2021-07-21] MEDS: Clopidogrel Bisulfate 75 MG TABLET PO (09:06)
[2021-07-21] MEDS: Sennosides 8.6 MG TABLET 17.2 MG PO (09:06)
[2021-07-21] MEDS: Atorvastatin Calcium 40 MG TABLET PO (09:06)
[2021-07-21] MEDS: 0.9 % Sodium Chloride Flush 3 ML SYRINGE IVFLUSH ×2 (09:06→16:50)
[2021-07-21] MEDS: Sertraline HCL 100 MG TABLET 200 MG PO (09:06)
[2021-07-21] MEDS: clonazePAM 0.5 MG TABLET PO ×2 (09:06→21:05)
[2021-07-21 11:04] LABS: Glucose, Whole Blood 225 mg/dL (60-115)
[2021-07-21 11:13] VITALS: BP 115/50; PULSE 84; RESP 18; TEMP 36.2; O2SAT 100
--- NOTE | 2021-07-21 11:28 | P.PNCA_ITS ---
Subjective Subjective Date of Service: 07/21/21 Principal diagnosis: CHF, acute MT Interval history: Patient currently not having any chest discomfort. Says her breathing is much improved. Hemodynamically stable. Echocardiogram shows persistent LV systolic dysfunction with LVEF of 40-45% with multiple wall motion abnormality suggestive underlying coronary artery disease. Currently still on Lasix drip with eyes and nose not well charted and patient appears to be in positive balance which is unusual. Review of Systems Constitutional: Reports weakness Eyes: Reports no additional eye complaints Cardiovascular: Denies chest pain, Denies leg edema, Denies lightheadedness, Denies palpitations and Reports dyspnea Respiratory: Reports no additional respiratory complaints and Reports dyspnea Musculoskeletal: Reports no additional musculoskeletal complaints Reports system reviewed and no additional complaints, except as documented and Reports weakness Endocrine: Denies palpitations Physical Exam Vital Signs: Last Vital Signs Temp 97.1 F 07/21/21 11:13 Pulse 84 07/21/21 11:13 Resp 18 07/21/21 11:13 BP 115/50 L 07/21/21 11:13 Pulse Ox 100 07/21/21 11:13 BMI result Body Mass Index 21.4 Const General: cooperative, comfortable, no acute distress, alert and awake Nutritional Appearance: underweight Orientation/consciousness: patient oriented x3 Neck Neck: Yes trachea midline, Yes supple and Yes no JVD Resp Effort & Inspection: normal respiratory effort Auscultation: rales, no wheezes and diminished lung sounds Cardio Jugular venous distension: no JVD Palpation: normal PMI Rate: regular rate Rhythm: regular rhythm Heart sounds: S1 normal heart sound present, S2 normal heart sound present, no click, no gallops and no murmurs GI Auscultation: normal bowel sounds Neuro General: patient oriented x3 and no focal motor deficits Extrem General: Yes no clubbing, cyanosis or edema Objective Labs and Meds Result diagrams: 07/21/21 03:59 07/21/21 03:59 Lab results: Laboratory Results - last 24 hr 07/20/21 07/20/21 07/20/21 12:02 13:59 16:19 WBC RBC Hgb Hct MCV MCH MCHC RDW Plt Count MPV Absolute Nucleated RBC Nucleated RBC % (auto) aPTT Heparin Protocol 52.0 L Sodium Potassium Chloride Carbon Dioxide Anion Gap BUN Creatinine Estim Creat Clear Calc Estimated GFR POC Glucose 227 H 128 H Random Glucose Calcium 07/20/21 07/20/21 07/21/21 19:58 20:20 03:59 WBC 7.2 RBC 2.76 L Hgb 8.0 L Hct 23.6 L MCV 85.5 MCH 29.0 MCHC 33.9 RDW 13.9 Plt Count 200 D MPV 12.0 Absolute Nucleated RBC 0.000 Nucleated RBC % (auto) 0.0 aPTT Heparin Protocol 77.8 D Sodium Potassium Chloride Carbon Dioxide Anion Gap BUN Creatinine Estim Creat Clear Calc Estimated GFR POC Glucose 165 H Random Glucose Calcium 07/21/21 07/21/21 07/21/21 03:59 03:59 07:23 WBC RBC Hgb Hct MCV MCH MCHC RDW Plt Count MPV Absolute Nucleated RBC Nucleated RBC % (auto) aPTT Heparin Protocol 35.1 L D Sodium 129 L Potassium 3.4 D Chloride 100 Carbon Dioxide 16 L Anion Gap 16 BUN 41 H Creatinine 2.67 H Estim Creat Clear Calc 12.2 Estimated GFR 17 POC Glucose 133 H Random Glucose 136 H Calcium 7.9 L 07/21/21 07/21/21 10:42 10:56 WBC RBC Hgb Hct MCV MCH MCHC RDW Plt Count MPV Absolute Nucleated RBC Nucleated RBC % (auto) aPTT Heparin Protocol 181.0 H* D Sodium Potassium Chloride Carbon Dioxide Anion Gap BUN Creatinine Estim Creat Clear Calc Estimated GFR POC Glucose 225 H Random Glucose Calcium Imaging Radiologist's impression: Impressions Thoracentesis Ultrasound 07/19/21 17:16 IMPRESSION: Successful ultrasound-guided diagnostic left thoracentesis performed. Progress Note: A&P Assessment and plan (1) Acute MT: Status: Acute Assessment and Plan: Patient with acute MT and high likelihood of underlying significant coronary artery disease with echo showing regional wall motion abnormality and high likelihood of triple-vessel coronary artery disease. However she has multiple comorbidities as discussed and patient still wants to continue pursue conservative management. Continue aspirin and add Plavix to her regimen. Continue IV heparin for total of 72 hours unless she is developing bleeding. High-intensity statin therapy with target goal LDL closer to 50 mg/dL. Start Lipitor 80 mg daily. Switch to isosorbide mononitrate 30 mg daily and add low- dose beta-blockers to maintain heart rate between 60 and 70s. Patient says she does not want any invasive procedure right now but may consider as outpatient although her comorbidities are significant. Consider transfusion of 1 packed unit of RBC to maintain hematocrit above 30 given her unstable cardiovascular status (2) CHF (congestive heart failure): Status: Acute Assessment and Plan: Heart failure which is improving. Patient clinically doing much better. Ischemic heart failure. Continue Lasix drip for 1 more day. Transfusion as discussed above. Continue monitor renal function. She has had gradual declining renal function any increasing creatinine. This is concerning. Start metoprolol low-dose. Continue isosorbide. Will hold off on adding any angiotensin receptor inhibitors due to her kidney issues. Overall prognosis is extremely guarded. Will follow with you Time Spent With Patient Time: Total time spent is greater than 50% in coordination of care (as documented) at patient's floor/unit and/or counseling patient: Progress Note: Quality Stroke Does the patient have a stroke diagnosis?: No Procedures Date of Service Date of Service: 07/21/21
[2021-07-21] MEDS: Insulin Lispro 100 UNIT/ML 3 ML VIAL SUBCUT ×3 (12:30→21:05)
[2021-07-21 12:33] LABS: PTT Heparin Drip 90.1 SEC (53-77.9)
[2021-07-21 14:27] LABS: Haptoglobin 239 mg/dL (43-212)
[2021-07-21 15:39] VITALS: BP 114/68; PULSE 62; RESP 17; TEMP 36.4; O2SAT 100
[2021-07-21 15:49] LABS: Glucose, Whole Blood 190 mg/dL (60-115)
[2021-07-21 19:09] LABS: PTT Heparin Drip 66.6 SEC (53-77.9)
[2021-07-21 20:19] VITALS: BP 115/68; PULSE 76; RESP 17; TEMP 36.2; O2SAT 99
[2021-07-21 20:42] LABS: Glucose, Whole Blood 156 mg/dL (60-115)
[2021-07-21] MEDS: Aspirin Enteric Coated 81 MG TABLET.DR PO (21:05)
[2021-07-21 23:13] VITALS: BP 110/65; PULSE 64; RESP 18; TEMP 37; O2SAT 98
[2021-07-22] VITALS (8 sets, daily range): BP systolic 107–140; BP diastolic 58–76; PULSE 51–86; RESP 16–19; TEMP 36.3–36.9; O2SAT 97–99
[2021-07-22 02:39] LABS: PTT Heparin Drip 74.9 SEC (53-77.9)
[2021-07-22] MEDS: Heparin Sodium,Porcine/1/2NS 25,000 UNIT/250 ML IV.SOLN 8.98 UNIT IVCONT (04:13)
[2021-07-22] MEDS: Furosemide 200 MG in 0.9 % Sodium Chloride 80 ML IVCONT (04:13)
[2021-07-22] MEDS: Omeprazole 20 MG CAPSULE.DR PO ×2 (05:25→16:44)
[2021-07-22 06:25] LABS: Hematocrit 24.7 % (37.0-47.0); Hemoglobin 8.2 g/dl (12.0-16.0)
[2021-07-22 06:55] LABS: Estimated Average Glucose 203 mg/dL; Hemoglobin A1c % 8.7 %
[2021-07-22 06:56] LABS: B Type Natriuretic Peptide 986 pg/mL (<100)
[2021-07-22 06:58] LABS: Anion Gap 15 (12-20); Blood Urea Nitrogen 44 mg/dL (9-16); Calcium 7.8 mg/dL (8.4-10.2); Carbon Dioxide 20 mmol/L (22-29); Chloride 101 mmol/L (96-108); Creatinine Clr Calc Pharmacy 11.9; Estimated Glomerular Filt Rate 17; Glucose Random 77 mg/dL (60-115); Potassium 3.1 mmol/L (3.3-5.1); Sodium 133 mmol/L (135-145)
[2021-07-22 07:10] LABS: PTT Heparin Drip 78.3 SEC (53-77.9)
[2021-07-22 07:23] LABS: Glucose, Whole Blood 85 mg/dL (60-115)
--- NOTE | 2021-07-22 08:40 | P.PNIM_ITS ---
Subjective Subjective Date of Service: 07/22/21 Interval History: chf ,? nstemi, anemia Review of Systems sob slightly improving denies any chest pain or abd pain or nausea or vomitin Physical Exam Vital Signs: Vital Signs: Last Vital Signs Temp 98.5 F 07/22/21 08:00 Pulse 86 07/22/21 08:00 Resp 19 07/22/21 08:00 BP 140/76 H 07/22/21 08:00 Pulse Ox 97 07/22/21 08:00 BMI result Body Mass Index 21.4 Appearance: Alert.? Oriented X3.? not in distress.? cvs: rrr, [id number] , no murmur res: air enrty diminshed ,sacttered rales at base. abd: no rebound or guarding ,nt, bs present. ext pulses present , no cyanosis. neuro: axo3 , nonfocal. Objective Data Active Medications Aspirin (Aspirin Enteric Coated 81 Mg Tablet.) 81 mg PO BEDTIME [facility] Last Admin: 07/21/21 21:05 Dose: 81 mg Documented by: DEDRA Benzonatate (Benzonatate 100 Mg Capsule) 100 mg PO TID PRN PRN Reason: Cough Last Admin: 07/20/21 17:53 Dose: 100 mg Documented by: JOSÉ Clonazepam (Clonazepam 0.5 Mg Tablet) 0.5 mg PO BID [facility] Last Admin: 07/21/21 21:05 Dose: 0.5 mg Documented by: DEDRA Clopidogrel Bisulfate (Clopidogrel Bisulfate 75 Mg Tablet) 75 mg PO DAILY [facility] Last Admin: 07/21/21 09:06 Dose: 75 mg Documented by: TOMAS Dextrose (Dextrose 50 % 25 Gm/50 Ml Syringe) 25 gm IVPUSH Q15M PRN; Protocol PRN Reason: per Hypoglycemia Standing Ord. Glucose (Glucose Gel 15 Gm Gel..Gram.) 15 gm PO Q15M PRN; Protocol PRN Reason: per Hypoglycemia Standing Ord. Heparin Sodium (Porcine) (Heparin Sodium,Porcine 5,000 Unit/Ml Vial) 2,000 unit 40 unit/kg (2000 unit) IVPUSH PROTOCOL BOLUS PRN; Protocol PRN Reason: 40 unit/kg - Heparin Protocol Stop: 07/23/21 01:00 Heparin Sodium (Porcine) (Heparin Sodium,Porcine 5,000 Unit/Ml Vial) 4,000 unit 80 unit/kg (4000 unit) IVPUSH PROTOCOL BOLUS PRN; Protocol PRN Reason: 80 unit/kg - Heparin Protocol Stop: 07/23/21 01:00 Furosemide 200 mg/ Sodium (Chloride) 100 mls @ 5 mls/hr IVCONT .Q20H [facility] Last Admin: 07/22/21 04:13 Dose: 10 mg/hr, 5 mls/hr Documented by: ANTOIC Heparin Sodium/Sodium Chloride () 25,000 unit in 250 mls @ 0 mls/hr IVCONT .Q0M [facility]; Protocol Stop: 07/23/21 01:00 Insulin Human Lispro (Insulin Lispro 100 Unit/Ml 3 Ml Vial) 0 unit SUBCUT QIDACHS [facility]; Protocol Last Admin: 07/22/21 07:29 Dose: Not Given Documented by: JLUIS Non-Admin Reason: No Insulin Coverage Magnesium Oxide (Magnesium Oxide 400 Mg Tablet) [facility] Melatonin (Melatonin 3 Mg Tablet) 6 mg PO BEDTIME PRN PRN Reason: Insomnia Last Admin: 07/18/21 22:47 Dose: 6 mg Documented by: DAVID Nitroglycerin (Nitroglycerin 2 % Oint 1 Gm Packet) 0.5 inch TRANSDERMA Q6H [facility] Last Admin: 07/22/21 00:12 Dose: Not Given Documented by: ABEL Non-Admin Reason: Patient Refused Omeprazole (Omeprazole 20 Mg Capsule.) 20 mg PO BID@0630,1630 [facility] Last Admin: 07/22/21 05:25 Dose: 20 mg Documented by: ABEL Ondansetron HCl (Ondansetron Hcl 4 Mg/2 Ml Vial) 4 mg IVPUSH Q8H PRN PRN Reason: Nausea and Vomiting Last Admin: 07/19/21 13:32 Dose: 4 mg Documented by: WIL Pharmacy Consult (Consult Rx Perform Med Rec) 1 each MISCELLANE ONCE PRN PRN Reason: Consult order Senna (Sennosides 8.6 Mg Tablet) 17.2 mg PO DAILY [facility] Last Admin: 07/21/21 09:06 Dose: 17.2 mg Documented by: TOMAS Sertraline HCl (Sertraline Hcl 100 Mg Tablet) 200 mg PO DAILY [facility] Last Admin: 07/21/21 09:06 Dose: 200 mg Documented by: TOMAS Simethicone (Simethicone 80 Mg Tab.Chew) 80 mg PO DAILY PRN PRN Reason: Gas Sodium Chloride (0.9 % Sodium Chloride Flush 3 Ml Syringe) 3 ml IVFLUSH QSHIFT [facility] Last Admin: 07/22/21 08:36 Dose: Not Given Documented by: JLUIS Non-Admin Reason: IV Running Tolterodine Tartrate (Tolterodine Tartrate La 2 Mg Cap.Er.24h) 2 mg PO DAILY [facility] Last Admin: 07/21/21 09:06 Dose: 2 mg Documented by: TOMAS Labs CBC & Chem 7: 07/22/21 06:05 07/22/21 06:05 Labs: Laboratory Results - last 24 hr 07/19/21 07/21/21 07/21/21 08:39 10:42 10:56 Haptoglobin 239 H aPTT Heparin Protocol 181.0 H* D Anion Gap Estim Creat Clear Calc Estimated GFR POC Glucose 225 H Random Glucose Estimat Average Glucose Hemoglobin A1c % Calcium B-Natriuretic Peptide 07/21/21 07/21/21 07/21/21 12:18 15:44 18:51 Haptoglobin aPTT Heparin Protocol 90.1 H D 66.6 D Anion Gap Estim Creat Clear Calc Estimated GFR POC Glucose 190 H Random Glucose Estimat Average Glucose Hemoglobin A1c % Calcium B-Natriuretic Peptide 07/21/21 07/22/21 07/22/21 20:22 02:09 06:05 Haptoglobin aPTT Heparin Protocol 74.9 Anion Gap 15 Estim Creat Clear Calc 11.9 Estimated GFR 17 POC Glucose 156 H Random Glucose 77 Estimat Average Glucose Hemoglobin A1c % Calcium 7.8 L B-Natriuretic Peptide 07/22/21 07/22/21 07/22/21 06:05 06:05 06:05 Haptoglobin aPTT Heparin Protocol 78.3 H Anion Gap Estim Creat Clear Calc Estimated GFR POC Glucose Random Glucose Estimat Average Glucose 203 Hemoglobin A1c % 8.7 Calcium B-Natriuretic Peptide 986 H 07/22/21 07:17 Haptoglobin aPTT Heparin Protocol Anion Gap Estim Creat Clear Calc Estimated GFR POC Glucose 85 Random Glucose Estimat Average Glucose Hemoglobin A1c % Calcium B-Natriuretic Peptide Microbiology Microbiology Results: Microbiology 07/19/21 17:00 Gram Stain - Final Pleura Anaerobic Culture - Preliminary No growth to date. Body Fluid Culture - Preliminary No growth after 1 day Assessment and Plan (1) Respiratory failure with hypoxia: Status: Acute (2) Acute ME: Status: Acute Plan 81-year-old female with a past medical history of hypertension, hyperlipidemia, diabetes, CAD, CKD, anxiety, depression, arthritis, history of pancreatic cancer on chemotherapy presented to the hospital today with a chief complaint of abdominal pain.? Nausea/vomiting /abdominal pain: likely related to chemoc, pancreatic cancer.? CT showed no acute finding, abd pain seems improved. Acute hypoxemic respiratory failure probably multifactorial( CHF, bilateral? effusions, atelactasis)/ntsemi iv lasix drip daily weight i/o moniter,? Incentive spirometry, chest physio, patient also had pleuritic tap yesterday. nstemi:started on dual platelet,iv heprin ,statin cardiology following Moderate hyponatremia:improving?Likely realted to malignance.? better today, fluid restriction and if not getting better, Nephro consult. History of CKD 3:? Creatinine at baseline.? History of diabetes:? Insulin sliding scale History of hypertension:? Continue home amlodipine, lisinopril Anemia of chronic disease H/H is stable. History of depression: Continue home sertraline DVT prophylaxis: Lovenox Inpatient need: Ongoing n/v, Hypoxia porb sec chf,nsetmi. Quality Stroke Does the patient have a stroke diagnosis?: No VTE Prior VTE?: No VTE Risk Level:: Medical - moderate - high VTE Device Contraindication: Treatment Not Indicated VTE Drug Contraindication: N/A - Med Ordered
[2021-07-22 09:15] LABS: Alanine Aminotransferase 178 U/L (0-31); Albumin Level 2.4 g/dL (3.5-5.0); Alkaline Phosphatase 137 U/L (39-117); Aspartate Amino Transferase 232 U/L (5-31); Bilirubin Direct 0.3 mg/dL (0.0-0.5); Bilirubin Total 0.4 mg/dL (0.0-1.0); Iron 49 mcg/dL (30-160); Percent Iron Saturation 35 % (15-50); Total Iron Binding Capacity 140 mcg/dL (228-428); Total Protein 4.6 g/dL (6.5-8.0); Unsaturated Iron Binding 91 ug/dL
[2021-07-22 09:22] LABS: Magnesium 1.4 mg/dL (1.6-2.6)
[2021-07-22 09:40] LABS: Folate 11.2 ng/mL (> or = 4.0); Vitamin B12 1331 pg/mL (200-900)
[2021-07-22] MEDS: Magnesium Oxide 400 MG TABLET PO ×2 (10:30→16:44)
[2021-07-22] MEDS: Clopidogrel Bisulfate 75 MG TABLET PO (10:36)
[2021-07-22] MEDS: Sennosides 8.6 MG TABLET 17.2 MG PO (10:36)
[2021-07-22] MEDS: Sertraline HCL 100 MG TABLET 200 MG PO (10:36)
[2021-07-22] MEDS: Tolterodine Tartrate LA 2 MG CAP.ER.24H PO (10:36)
[2021-07-22] MEDS: Metoprolol Tartrate 12.5 MG HALFTAB PO ×2 (10:36→21:06)
[2021-07-22] MEDS: Isosorbide Mononitrate 30 MG TAB.ER.24H 15 MG PO (10:36)
[2021-07-22] MEDS: Potassium Chloride Packet 20 MEQ PACKET 40 MEQ PO (10:37)
[2021-07-22] MEDS: clonazePAM 0.5 MG TABLET PO ×2 (10:37→21:06)
[2021-07-22] MEDS: Magnesium Sulfate/D5W 1 GM/100 ML PIGGYBACK IV (10:45)
[2021-07-22 11:02] LABS: Glucose, Whole Blood 160 mg/dL (60-115)
--- NOTE | 2021-07-22 11:44 | PM.PNCARD ---
Subjective Subjective Date of Service: 07/22/21 <SOPHIA Naranjo - Last Filed: 07/22/21 12:03> 07/22/21 <Cj Parham MD - Last Filed: 07/22/21 12:45> Principal diagnosis: CHF, acute IA <SOPHIA Naranjo - Last Filed: 07/22/21 12:03> Interval history: Seen at 1030. Today she reports that she is feeling OK. Denies having sob, chest pains, palpitations, dizziness. No leg edema. OOB in recliner. Reports steadiness when getting up. Still has IV Heparin and IV Lasix drip infusing. Jefferosn cath in place. <SOPHIA Naranjo - Last Filed: 07/22/21 12:03> Review of Systems Review of Systems as above <SOPHIA Naranjo - Last Filed: 07/22/21 12:03> Yes all other systems are reviewed and are negative <SOPHIA Naranjo - Last Filed: 07/22/21 12:03> Physical Exam Vital Signs: Last Vital Signs Temp 98.0 F 07/22/21 11:37 Pulse 51 07/22/21 11:37 Resp 16 07/22/21 11:37 BP 136/59 L 07/22/21 11:37 Pulse Ox 99 07/22/21 11:37 BMI result Body Mass Index 21.4 <SOPHIA Naranjo - Last Filed: 07/22/21 12:03> Const General: cooperative, no acute distress, alert and awake <SOPHIA Naranjo - Last Filed: 07/22/21 12:03> Orientation/consciousness: patient oriented x3 <SOPHIA Naranjo - Last Filed: 07/22/21 12:03> Neck Neck: Yes normal visual inspection and Yes no JVD <SOPHIA Naranjo Last Filed: 07/22/21 12:03> Resp Effort & Inspection: normal respiratory effort and able to speak in complete sentences <SOPHIA Naranjo - Last Filed: 07/22/21 12:03> Auscultation: clear to auscultation bilaterally, rales (fine rales noted in bases posteriorly), no rhonchi and no wheezes <Elena M CHARLY HerculesC - Last Filed: 07/22/21 12:03> Cardio Rate: regular rate <Elena CHARLY HerculesC - Last Filed: 07/22/21 12:03> Rhythm: abnormal rhythm (PVCs) regularly irregular <[facility] CHARLY HerculesC - Last Filed: 07/22/21 12:03> Heart sounds: S1 normal heart sound present and S2 normal heart sound present <Elena SUZANNE eHrcules-C - Last Filed: 07/22/21 12:03> GI Inspection: Yes normal to inspection <Elena CHARLY HerculesC - Last Filed: 07/22/21 12:03> Neuro General: patient oriented x3 <Elena CHARLY HerculesC - Last Filed: 07/22/21 12:03> Extrem General: Yes normal to inspection and No edema <Elena CHARLY HerculesC - Last Filed: 07/22/21 12:03> Objective Labs and Meds Result diagrams: : 07/22/21 06:05 07/22/21 06:05 <Elena CHARLY HerculesC - Last Filed: 07/22/21 12:03> Lab results: Laboratory Results - last 24 hr 07/19/21 07/21/21 07/21/21 08:39 12:18 15:44 Hgb Hct Haptoglobin 239 H aPTT Heparin Protocol 90.1 H D Sodium Potassium Chloride Carbon Dioxide Anion Gap BUN Creatinine Estim Creat Clear Calc Estimated GFR POC Glucose 190 H Random Glucose Estimat Average Glucose Hemoglobin A1c % Calcium Magnesium Iron TIBC % Saturation Unsat Iron Binding Total Bilirubin Direct Bilirubin AST ALT Alkaline Phosphatase B-Natriuretic Peptide Total Protein Albumin Vitamin B12 Folate Blood Type Antibody Screen Crossmatch 07/21/21 07/21/21 07/22/21 18:51 20:22 02:09 Hgb Hct Haptoglobin aPTT Heparin Protocol 66.6 D 74.9 Sodium Potassium Chloride Carbon Dioxide Anion Gap BUN Creatinine Estim Creat Clear Calc Estimated GFR POC Glucose 156 H Random Glucose Estimat Average Glucose Hemoglobin A1c % Calcium Magnesium Iron TIBC % Saturation Unsat Iron Binding Total Bilirubin Direct Bilirubin AST ALT Alkaline Phosphatase B-Natriuretic Peptide Total Protein Albumin Vitamin B12 Folate Blood Type Antibody Screen Crossmatch 07/22/21 07/22/21 07/22/21 06:05 06:05 06:05 Hgb 8.2 L Hct 24.7 L Haptoglobin aPTT Heparin Protocol Sodium 133 L Potassium 3.1 L Chloride 101 Carbon Dioxide 20 L Anion Gap 15 BUN 44 H Creatinine 2.74 H Estim Creat Clear Calc 11.9 Estimated GFR 17 POC Glucose Random Glucose 77 Estimat Average Glucose 203 Hemoglobin A1c % 8.7 Calcium 7.8 L Magnesium 1.4 L* Iron 49 TIBC 140 L % Saturation 35 Unsat Iron Binding 91 Total Bilirubin 0.4 Direct Bilirubin 0.3 AST 232 H ALT 178 H Alkaline Phosphatase 137 H B-Natriuretic Peptide Total Protein 4.6 L D Albumin 2.4 L D Vitamin B12 Folate Blood Type Antibody Screen Crossmatch 07/22/21 07/22/21 07/22/21 06:05 06:05 06:05 Hgb Hct Haptoglobin aPTT Heparin Protocol 78.3 H Sodium Potassium Chloride Carbon Dioxide Anion Gap BUN Creatinine Estim Creat Clear Calc Estimated GFR POC Glucose Random Glucose Estimat Average Glucose Hemoglobin A1c % Calcium Magnesium Iron TIBC % Saturation Unsat Iron Binding Total Bilirubin Direct Bilirubin AST ALT Alkaline Phosphatase B-Natriuretic Peptide 986 H Total Protein Albumin Vitamin B12 1331 H Folate 11.2 Blood Type Antibody Screen Crossmatch 07/22/21 07/22/21 07/22/21 07:17 09:50 10:55 Hgb Hct Haptoglobin aPTT Heparin Protocol Sodium Potassium Chloride Carbon Dioxide Anion Gap BUN Creatinine Estim Creat Clear Calc Estimated GFR POC Glucose 85 160 H Random Glucose Estimat Average Glucose Hemoglobin A1c % Calcium Magnesium Iron TIBC % Saturation Unsat Iron Binding Total Bilirubin Direct Bilirubin AST ALT Alkaline Phosphatase B-Natriuretic Peptide Total Protein Albumin Vitamin B12 Folate Blood Type A Positive Antibody Screen NEGATIVE Crossmatch See Detail <SOPHIA Naranjo - Last Filed: 07/22/21 12:03> Imaging Radiologist's impression: Impressions Chest X-Ray 07/21/21 14:10 IMPRESSION: Increased moderate right and small left pleural effusions with associated airspace opacity which may be atelectasis and/or pneumonia. <SOPHIA Naranjo - Last Filed: 07/22/21 12:03> Progress Note: A&P Assessment and plan (1) Acute IA: Status: Acute <SOPHIA Naranjo - Last Filed: 07/22/21 12:03> Assessment and Plan: Ruled in for NSTEMI this admit. Managed medically at her request. Declined invasive testing. Echo shows EF 40-45%, WMA present, mod MR, grade II diastolic dysfunction. Treated for acute HFrEF as well. Likely has significant CAD. No reports of recurrent CP. Breathing improved. On heparin drip for total 72 hrs then can be d/c - hospitalist aware. Continue on aspirin indefinitely, Plavix, atorvastatin, metoprolol, imdur. She does have anemia, with hgb 8.2. No signs of active bleeding. Recommend blood transfusion today and this will help cardiac function. Hct goal 30. currently 24.7. Tele shows SR, PVC, runs of ventricular bigeminy. Her K 3.1, Mg 1.4. Has already recieved supplements today. K goal 4, Mg goal 2. We will follow along <SOPHIA Naranjo - Last Filed: 07/22/21 12:03> Ruled in for NSTEMI this admit. Managed medically at her request. Declined invasive testing. Echo shows EF 40-45%, WMA present, mod MR, grade II diastolic dysfunction. Treated for acute HFrEF as well. Likely has significant CAD. No reports of recurrent CP. Breathing improved. On heparin drip for total 72 hrs then can be d/c - hospitalist aware. Continue on aspirin indefinitely, Plavix, atorvastatin, metoprolol, imdur. She does have anemia, with hgb 8.2. No signs of active bleeding. Recommend blood transfusion today and this will help cardiac function. Hct goal 30. currently 24.7. Tele shows SR, PVC, runs of ventricular bigeminy. Her K 3.1, Mg 1.4. Has already recieved supplements today. K goal 4, Mg goal 2. We will follow along Patient seen and examined. Case discussed with Elena Hercules. No recurrent chest discomfort. Patient currently doing well. Can discontinue IV heparin. Continue aggressive management of her coronary artery disease with high likelihood of underlying multivessel coronary disease. She is aware of this. She wants to continue pursue conservative medical management. Continue Imdur or, metoprolol, dual antiplatelet therapy and high-intensity statin therapy. Transfuse to maintain hematocrit above 30. <Cj Parham MD - Last Filed: 07/22/21 12:45> (2) Cardiomyopathy: Status: Acute <SOPHIA Naranjo - Last Filed: 07/22/21 12:03> Assessment and Plan: Started on Metoprolol for neurohormonal modulation. Not started on jaylene/ arb due to THERON/ CKD. Cr 2.74 today. <SOPHIA Naranjo - Last Filed: 07/22/21 12:03> Started on Metoprolol for neurohormonal modulation. Not started on ajylene/ arb due to THERON/ CKD. Cr 2.74 today. Congestive heart failure which has improved. Can discontinue IV Lasix drip and transition to p.o. Lasix starting tomorrow after packed RBC transfusion. Continue neurohormonal modulation with metoprolol. Avoid angiotensin receptor duy due to advancing kidney disease. Overall prognosis is guarded. <jC Parham MD - Last Filed: 07/22/21 12:45> (3) Pleural effusion: Status: Acute <SOPHIA Nraanjo - Last Filed: 07/22/21 12:03> Assessment and Plan: CXR yesterday with increased moderate right effusion, small left effusion. She has been on a Lasix drip for few days. I+Os do not seem accurrately recorded. BNP down from 2792 on admit to 986 today. Still wearing O2 1 liter with sate 97%. On exam she does not appear fluid overloaded but does have some faint rales in bases. Spoke with hospitalist. Cr is 2.74, higher than admit. Will plan to stop IV Lasix drip after her blood transfusion. Recheck BMP, BNP in am. <SOPHIA Naranjo - Last Filed: 07/22/21 12:03> (4) Anemia: Status: Acute <SOPHIA Naranjo - Last Filed: 07/22/21 12:03> Time Spent With Patient Time: Total time spent is greater than 50% in coordination of care (as documented) at patient's floor/unit and/or counseling patient: 24 <SOPHIA Naranjo - Last Filed: 07/22/21 12:03> Progress Note: Quality Stroke Does the patient have a stroke diagnosis?: No <SOPHIA Naranjo - Last Filed: 07/22/21 12:03> Procedures Date of Service Date of Service: 07/22/21 <SOPHIA Naranjo - Last Filed: 07/22/21 12:03>
[2021-07-22] MEDS: Insulin Lispro 100 UNIT/ML 3 ML VIAL SUBCUT ×3 (11:48→21:06)
--- NOTE | 2021-07-22 11:56 | MHC.CLN ---
F/U PO INTAKE 25-50% DIET RX: 1800DM 2GM NA -APPROPRIATE PT RECEIVING GLUCERNA BID TO INCREASE KCALS PROVIDES 474KCALS, 20G PROTEIN NSG REPORTS PT ACCEPTS SUPP WHEN GIVEN AND SIPS THROUGHOUT THE DAY CONTINUE TO MONITOR PO INTAKE CLOSELY
--- NOTE | 2021-07-22 12:10 | MHC.CM.PN ---
per rounds pt expected to be here over the weekend due to ongoing nausea/vomiting secondary to chf,nstemi
[2021-07-22] MEDS: Acetaminophen 325 MG TABLET 650 MG PO (12:59)
[2021-07-22 16:09] LABS: Glucose, Whole Blood 205 mg/dL (60-115)
[2021-07-22 18:35] LABS: PTT Heparin Drip 68.3 SEC (53-77.9)
[2021-07-22 20:13] LABS: Glucose, Whole Blood 169 mg/dL (60-115)
[2021-07-22] MEDS: Atorvastatin Calcium 40 MG TABLET PO (21:06)
[2021-07-22] MEDS: Aspirin Enteric Coated 81 MG TABLET.DR PO (21:06)
[2021-07-22] MEDS: 0.9 % Sodium Chloride Flush 3 ML SYRINGE IVFLUSH (21:07)
[2021-07-23] MEDS: Omeprazole 20 MG CAPSULE.DR PO ×2 (06:03→17:05)
[2021-07-23 06:09] LABS: Hematocrit 28.8 % (37.0-47.0); Hemoglobin 9.9 g/dl (12.0-16.0); Mean Corpuscular HGB Conc 34.4 g/dl (31.0-35.0); Mean Corpuscular Hemoglobin 29.4 pg (27.0-33.0); Mean Corpuscular Volume 85.5 fL (80.0-98.0); Mean Platelet Volume 12.1 fL (9.4-12.3); Platelet Count 188 X10*3/uL (160-400); Red Blood Count 3.37 X10*6/uL (4.20-5.50); White Blood Count 6.5 X10*3/uL (4.8-10.8)
[2021-07-23 06:15] LABS: PTT Heparin Drip 80.7 SEC (53-77.9)
[2021-07-23 06:42] LABS: Anion Gap 15 (12-20); Blood Urea Nitrogen 46 mg/dL (9-16); Calcium 7.9 mg/dL (8.4-10.2); Carbon Dioxide 19 mmol/L (22-29); Chloride 100 mmol/L (96-108); Creatinine Clr Calc Pharmacy 12.6; Estimated Glomerular Filt Rate 18; Glucose Random 144 mg/dL (60-115); Potassium 3.4 mmol/L (3.3-5.1); Sodium 131 mmol/L (135-145)
[2021-07-23 07:22] VITALS: BP 135/67; PULSE 77; RESP 18; TEMP 36.7; O2SAT 96
[2021-07-23 07:39] LABS: Glucose, Whole Blood 151 mg/dL (60-115)
[2021-07-23] MEDS: Metoprolol Tartrate 12.5 MG HALFTAB PO ×2 (08:19→20:43)
[2021-07-23] MEDS: Sennosides 8.6 MG TABLET 17.2 MG PO (08:19)
[2021-07-23] MEDS: Sertraline HCL 100 MG TABLET 200 MG PO (08:20)
[2021-07-23] MEDS: Isosorbide Mononitrate 30 MG TAB.ER.24H 15 MG PO (08:21)
[2021-07-23] MEDS: Clopidogrel Bisulfate 75 MG TABLET PO (08:22)
[2021-07-23] MEDS: Furosemide 40 MG TABLET PO (08:22)
[2021-07-23] MEDS: Magnesium Oxide 400 MG TABLET PO ×2 (08:22→17:05)
[2021-07-23] MEDS: Insulin Lispro 100 UNIT/ML 3 ML VIAL SUBCUT ×4 (08:23→20:43)
[2021-07-23] MEDS: 0.9 % Sodium Chloride Flush 3 ML SYRINGE IVFLUSH ×3 (08:23→20:43)
[2021-07-23] MEDS: clonazePAM 0.5 MG TABLET PO ×2 (08:23→20:43)
[2021-07-23] MEDS: Tolterodine Tartrate LA 2 MG CAP.ER.24H PO (08:23)
[2021-07-23 11:13] VITALS: BP 133/69; PULSE 63; RESP 18; TEMP 36.6; O2SAT 97
[2021-07-23 11:23] LABS: Glucose, Whole Blood 200 mg/dL (60-115)
[2021-07-23 12:35] VITALS: BP 133/69; PULSE 63; O2SAT 97
[2021-07-23 13:46] LABS: Alanine Aminotransferase 192 U/L (0-31); Albumin Level 2.5 g/dL (3.5-5.0); Alkaline Phosphatase 150 U/L (39-117); Aspartate Amino Transferase 230 U/L (5-31); Bilirubin Direct 0.7 mg/dL (0.0-0.5); Bilirubin Total 0.9 mg/dL (0.0-1.0); Total Protein 4.7 g/dL (6.5-8.0)
--- NOTE | 2021-07-23 13:46 | P.PNIM_ITS ---
Subjective Subjective Date of Service: 07/23/21 Interval History: chf Exacerbation, generalized weak Review of Systems still somewhat sob , generalized weak Physical Exam Vital Signs: Vital Signs: Last Vital Signs Temp 97.9 F 07/23/21 11:13 Pulse 63 07/23/21 11:13 Resp 18 07/23/21 11:13 BP 133/69 07/23/21 11:13 Pulse Ox 97 07/23/21 11:13 BMI result Body Mass Index 21.4 ?Appearance: Alert.? Oriented X3.? not in distress.? cvs: [id number], [id number] , no murmur res: air enrty diminshed ,sacttered rales at base. abd: no rebound or guarding ,nt, bs present. ext pulses present , no cyanosis. neuro: axo3 , nonfocal. Objective Data Active Medications Aspirin (Aspirin Enteric Coated 81 Mg Tablet.) 81 mg PO BEDTIME [facility] Last Admin: 07/22/21 21:06 Dose: 81 mg Documented by: ANTJOE Atorvastatin Calcium (Atorvastatin Calcium 40 Mg Tablet) 40 mg PO BEDTIME [facility] Last Admin: 07/22/21 21:06 Dose: 40 mg Documented by: ANTJOE Benzonatate (Benzonatate 100 Mg Capsule) 100 mg PO TID PRN PRN Reason: Cough Last Admin: 07/20/21 17:53 Dose: 100 mg Documented by: JOSÉ Clonazepam (Clonazepam 0.5 Mg Tablet) 0.5 mg PO BID [facility] Last Admin: 07/23/21 08:23 Dose: 0.5 mg Documented by: HANY Clopidogrel Bisulfate (Clopidogrel Bisulfate 75 Mg Tablet) 75 mg PO DAILY [facility] Last Admin: 07/23/21 08:22 Dose: 75 mg Documented by: HANY Dextrose (Dextrose 50 % 25 Gm/50 Ml Syringe) 25 gm IVPUSH Q15M PRN; Protocol PRN Reason: per Hypoglycemia Standing Ord. Furosemide (Furosemide 40 Mg Tablet) 40 mg PO DAILY [facility]; Protocol Glucose (Glucose Gel 15 Gm Gel..Gram.) 15 gm PO Q15M PRN; Protocol PRN Reason: per Hypoglycemia Standing Ord. Insulin Human Lispro (Insulin Lispro 100 Unit/Ml 3 Ml Vial) 0 unit SUBCUT QIDACHS [facility]; Protocol Last Admin: 07/23/21 12:14 Dose: 2 unit Documented by: HANY Isosorbide Mononitrate (Isosorbide Mononitrate 30 Mg Tab.Er.24h) 15 mg PO DAILY [facility]; Protocol Last Admin: 07/23/21 08:21 Dose: 15 mg Documented by: HANY Magnesium Oxide (Magnesium Oxide 400 Mg Tablet) 400 mg PO BIDPC [facility] Last Admin: 07/23/21 08:22 Dose: 400 mg Documented by: HANY Melatonin (Melatonin 3 Mg Tablet) 6 mg PO BEDTIME PRN PRN Reason: Insomnia Last Admin: 07/18/21 22:47 Dose: 6 mg Documented by: DAVID Metoprolol Tartrate (Metoprolol Tartrate 12.5 Mg Halftab) 12.5 mg PO BID [facility]; Protocol Last Admin: 07/23/21 08:19 Dose: 12.5 mg Documented by: HANY Omeprazole (Omeprazole 20 Mg Capsule.Dr) 20 mg PO BID@0630,1630 [facility] Last Admin: 07/23/21 06:03 Dose: 20 mg Documented by: ABEL Ondansetron HCl (Ondansetron Hcl 4 Mg/2 Ml Vial) 4 mg IVPUSH Q8H PRN PRN Reason: Nausea and Vomiting Last Admin: 07/19/21 13:32 Dose: 4 mg Documented by: WIL Pharmacy Consult (Consult Rx Perform Med Rec) 1 each MISCELLANE ONCE PRN PRN Reason: Consult order Senna (Sennosides 8.6 Mg Tablet) 17.2 mg PO DAILY [facility] Last Admin: 07/23/21 08:19 Dose: 17.2 mg Documented by: HANY Sertraline HCl (Sertraline Hcl 100 Mg Tablet) 200 mg PO DAILY [facility] Last Admin: 07/23/21 08:20 Dose: 100 mg Documented by: HANY Simethicone (Simethicone 80 Mg Tab.Chew) 80 mg PO DAILY PRN PRN Reason: Gas Sodium Chloride (0.9 % Sodium Chloride Flush 3 Ml Syringe) 3 ml IVFLUSH QSHIFT [facility] Last Admin: 07/23/21 08:23 Dose: 3 ml Documented by: HANY Tolterodine Tartrate (Tolterodine Tartrate La 2 Mg Cap.Er.24h) 2 mg PO DAILY [facility] Last Admin: 07/23/21 08:23 Dose: 2 mg Documented by: HANY Labs CBC & Chem 7: 07/23/21 05:54 07/23/21 05:54 Labs: Laboratory Results - last 24 hr 07/22/21 07/22/21 07/22/21 09:50 16:01 17:58 MCV MCH MCHC RDW Plt Count MPV Absolute Nucleated RBC Nucleated RBC % (auto) aPTT Heparin Protocol 68.3 Anion Gap Estim Creat Clear Calc Estimated GFR POC Glucose 205 H Random Glucose Calcium Total Bilirubin Direct Bilirubin AST ALT Alkaline Phosphatase Total Protein Albumin Crossmatch See Detail 07/22/21 07/23/21 07/23/21 20:03 05:54 05:54 MCV 85.5 MCH 29.4 MCHC 34.4 RDW 14.0 Plt Count 188 MPV 12.1 Absolute Nucleated RBC 0.130 H Nucleated RBC % (auto) 2.0 H aPTT Heparin Protocol 80.7 H Anion Gap Estim Creat Clear Calc Estimated GFR POC Glucose 169 H Random Glucose Calcium Total Bilirubin Direct Bilirubin AST ALT Alkaline Phosphatase Total Protein Albumin Crossmatch 07/23/21 07/23/21 07/23/21 05:54 07:24 11:14 MCV MCH MCHC RDW Plt Count MPV Absolute Nucleated RBC Nucleated RBC % (auto) aPTT Heparin Protocol Anion Gap 15 Estim Creat Clear Calc 12.6 Estimated GFR 18 POC Glucose 151 H 200 H Random Glucose 144 H Calcium 7.9 L Total Bilirubin 0.9 Direct Bilirubin 0.7 H AST 230 H ALT 192 H Alkaline Phosphatase 150 H Total Protein 4.7 L Albumin 2.5 L Crossmatch Microbiology Microbiology Results: Microbiology 07/19/21 17:00 Gram Stain - Final Pleura Anaerobic Culture - Preliminary No growth to date. Body Fluid Culture - Final No growth after 2 days Assessment and Plan (1) Pleural effusion: Status: Acute (2) Acute WI: Status: Acute Plan 81-year-old female with a past medical history of hypertension, hyperlipidemia, diabetes, CAD, CKD, anxiety, depression, arthritis, history of pancreatic cancer on chemotherapy presented to the hospital today with a chief complaint of abdominal pain.? Nausea/vomiting /abdominal pain: likely related to chemoc, pancreatic cancer.? CT showed no acute finding, abd pain seems improved. Acute hypoxemic respiratory failure probably multifactorial( CHF, bilateral? effusions, atelactasis)/ntsemi iv lasix drip daily weight i/o moniter,? Incentive spirometry, chest physio, patient also had pleuritic tap yesterday. nstemi:started on dual platelet,iv heprin ,statin incentive spirometry, chest physiotherapy, out of bed to chair,pt eval. cardiology following Moderate hyponatremia:improving?Likely realted to malignance.? better today, fluid restriction and if not getting better. History of CKD 3:? Creatinine at baseline.? History of diabetes:? Insulin sliding scale History of hypertension:acceptable,? Continue home amlodipine, hold lisinopril. Anemia of chronic disease H/H is stable. History of depression: Continue home sertraline DVT prophylaxis: Lovenox Inpatient need:Hypoxia porb sec chf,nsetmi. Quality Stroke Does the patient have a stroke diagnosis?: No VTE Prior VTE?: No VTE Risk Level:: Medical - moderate - high VTE Device Contraindication: Treatment Not Indicated VTE Drug Contraindication: N/A - Med Ordered
[2021-07-23 16:00] VITALS: BP 140/73; PULSE 68; RESP 18; TEMP 36.4; O2SAT 98
[2021-07-23 16:08] LABS: Glucose, Whole Blood 173 mg/dL (60-115)
[2021-07-23 17:49] LABS: Alanine Aminotransferase 210 U/L (0-31); Albumin Level 2.7 g/dL (3.5-5.0); Alkaline Phosphatase 160 U/L (39-117); Aspartate Amino Transferase 236 U/L (5-31); Bilirubin Direct 0.4 mg/dL (0.0-0.5); Bilirubin Total 0.7 mg/dL (0.0-1.0); Total Protein 5.2 g/dL (6.5-8.0)
[2021-07-23 18:09] LABS: B Type Natriuretic Peptide 1631 pg/mL (<100)
--- NOTE | 2021-07-23 18:41 | PC.NURSE ---
Jefferson cath removed per MD at 1600. order. Tolerated it well. Due to void at 2200.
[2021-07-23 19:43] LABS: Glucose, Whole Blood 191 mg/dL (60-115)
[2021-07-23] MEDS: Atorvastatin Calcium 40 MG TABLET PO (20:43)
[2021-07-23] MEDS: Aspirin Enteric Coated 81 MG TABLET.DR PO (20:43)
[2021-07-23 23:52] VITALS: BP 119/64; PULSE 71; RESP 17; TEMP 36.8; O2SAT 98
[2021-07-24] MEDS: Omeprazole 20 MG CAPSULE.DR PO (05:12)
[2021-07-24 07:15] VITALS: BP 147/70; PULSE 70; RESP 18; TEMP 36.4; O2SAT 98
[2021-07-24 07:21] LABS: Hemoglobin 10.5 g/dl (12.0-16.0); Mean Corpuscular Hemoglobin 29.6 pg (27.0-33.0); Mean Corpuscular Volume 84.5 fL (80.0-98.0); Mean Platelet Volume 11.6 fL (9.4-12.3); Platelet Count 188 X10*3/uL (160-400); Red Blood Count 3.55 X10*6/uL (4.20-5.50)
[2021-07-24 07:22] LABS: Glucose, Whole Blood 162 mg/dL (60-115)
--- NOTE | 2021-07-24 07:53 | P.PNIM_ITS ---
Subjective Subjective Date of Service: 07/24/21 Interval History: chf ? Exacerbation, generalized weak Physical Exam Vital Signs: Vital Signs: Last Vital Signs Temp 97.5 F 07/24/21 07:15 Pulse 70 07/24/21 07:15 Resp 18 07/24/21 07:15 BP 147/70 H 07/24/21 07:15 Pulse Ox 98 07/24/21 07:15 BMI result Body Mass Index 21.4 Appearance: Alert.? Oriented X3.? not in distress.? cvs: [id number], [id number] , no murmur res: air enrty diminshed ,sacttered rales at base. abd: no rebound or guarding ,nt, bs present. ext pulses present , no cyanosis. neuro: axo3 , nonfocal. Objective Data Active Medications Aspirin (Aspirin Enteric Coated 81 Mg Tablet.) 81 mg PO BEDTIME [facility] Last Admin: 07/23/21 20:43 Dose: 81 mg Documented by: MARLIN Atorvastatin Calcium (Atorvastatin Calcium 40 Mg Tablet) 40 mg PO BEDTIME [facility] Last Admin: 07/23/21 20:43 Dose: 40 mg Documented by: MARLIN Benzonatate (Benzonatate 100 Mg Capsule) 100 mg PO TID PRN PRN Reason: Cough Last Admin: 07/20/21 17:53 Dose: 100 mg Documented by: JOSÉ Clonazepam (Clonazepam 0.5 Mg Tablet) 0.5 mg PO BID [facility] Last Admin: 07/23/21 20:43 Dose: 0.5 mg Documented by: MARLIN Clopidogrel Bisulfate (Clopidogrel Bisulfate 75 Mg Tablet) 75 mg PO DAILY [facility] Last Admin: 07/23/21 08:22 Dose: 75 mg Documented by: HANY Dextrose (Dextrose 50 % 25 Gm/50 Ml Syringe) 25 gm IVPUSH Q15M PRN; Protocol PRN Reason: per Hypoglycemia Standing Ord. Famotidine (Famotidine 20 Mg Tablet) 20 mg PO DAILY [facility] Furosemide (Furosemide 40 Mg Tablet) 40 mg PO DAILY [facility]; Protocol Glucose (Glucose Gel 15 Gm Gel..Gram.) 15 gm PO Q15M PRN; Protocol PRN Reason: per Hypoglycemia Standing Ord. Insulin Human Lispro (Insulin Lispro 100 Unit/Ml 3 Ml Vial) 0 unit SUBCUT QIDACHS [facility]; Protocol Last Admin: 07/23/21 20:43 Dose: 2 unit Documented by: MARLIN Isosorbide Mononitrate (Isosorbide Mononitrate 30 Mg Tab.Er.24h) 15 mg PO DAILY [facility]; Protocol Last Admin: 07/23/21 08:21 Dose: 15 mg Documented by: HANY Magnesium Oxide (Magnesium Oxide 400 Mg Tablet) 400 mg PO BIDPC [facility] Last Admin: 07/23/21 17:05 Dose: 400 mg Documented by: HANY Melatonin (Melatonin 3 Mg Tablet) 6 mg PO BEDTIME PRN PRN Reason: Insomnia Last Admin: 07/18/21 22:47 Dose: 6 mg Documented by: DAVID Metoprolol Tartrate (Metoprolol Tartrate 12.5 Mg Halftab) 12.5 mg PO BID [facility]; Protocol Last Admin: 07/23/21 20:43 Dose: 12.5 mg Documented by: MARLIN Ondansetron HCl (Ondansetron Hcl 4 Mg/2 Ml Vial) 4 mg IVPUSH Q8H PRN PRN Reason: Nausea and Vomiting Last Admin: 07/19/21 13:32 Dose: 4 mg Documented by: WIL Pharmacy Consult (Consult Rx Perform Med Rec) 1 each MISCELLANE ONCE PRN PRN Reason: Consult order Senna (Sennosides 8.6 Mg Tablet) 17.2 mg PO DAILY [facility] Last Admin: 07/23/21 08:19 Dose: 17.2 mg Documented by: HANY Sertraline HCl (Sertraline Hcl 100 Mg Tablet) 200 mg PO DAILY [facility] Last Admin: 07/23/21 08:20 Dose: 100 mg Documented by: HANY Simethicone (Simethicone 80 Mg Tab.Chew) 80 mg PO DAILY PRN PRN Reason: Gas Sodium Chloride (0.9 % Sodium Chloride Flush 3 Ml Syringe) 3 ml IVFLUSH QSHIFT [facility] Last Admin: 07/23/21 20:43 Dose: 3 ml Documented by: MARLIN Tolterodine Tartrate (Tolterodine Tartrate La 2 Mg Cap.Er.24h) 2 mg PO DAILY [facility] Last Admin: 07/23/21 08:23 Dose: 2 mg Documented by: HANY Labs CBC & Chem 7: 07/24/21 06:38 07/23/21 05:54 Labs: Laboratory Results - last 24 hr 07/23/21 07/23/21 07/23/21 05:54 11:14 15:59 MCV MCH MCHC RDW Plt Count MPV Absolute Nucleated RBC Nucleated RBC % (auto) POC Glucose 200 H 173 H Total Bilirubin 0.9 Direct Bilirubin 0.7 H AST 230 H ALT 192 H Alkaline Phosphatase 150 H B-Natriuretic Peptide Total Protein 4.7 L Albumin 2.5 L 07/23/21 07/23/21 07/23/21 17:03 17:03 19:38 MCV MCH MCHC RDW Plt Count MPV Absolute Nucleated RBC Nucleated RBC % (auto) POC Glucose 191 H Total Bilirubin 0.7 Direct Bilirubin 0.4 AST 236 H ALT 210 H Alkaline Phosphatase 160 H B-Natriuretic Peptide 1631 H Total Protein 5.2 L Albumin 2.7 L 07/24/21 07/24/21 06:38 07:17 MCV 84.5 MCH 29.6 MCHC 35.0 RDW 14.0 Plt Count 188 MPV 11.6 Absolute Nucleated RBC 0.160 H Nucleated RBC % (auto) 2.0 H POC Glucose 162 H Total Bilirubin Direct Bilirubin AST ALT Alkaline Phosphatase B-Natriuretic Peptide Total Protein Albumin Microbiology Microbiology Results: Microbiology 07/19/21 17:00 Gram Stain - Final Pleura Anaerobic Culture - Preliminary No growth to date. Body Fluid Culture - Final No growth after 2 days Assessment and Plan (1) Pleural effusion: Status: Acute (2) Acute PA: Status: Acute Plan 81-year-old female with a past medical history of hypertension, hyperlipidemia, diabetes, CAD, CKD, anxiety, depression, arthritis, history of pancreatic cancer on chemotherapy presented to the hospital today with a chief complaint of abdominal pain.? Nausea/vomiting /abdominal pain: likely related to chemoc, pancreatic cancer.? CT showed no acute finding, abd pain seems improved. Acute hypoxemic respiratory failure probably multifactorial( CHF, bilateral? effusions, atelactasis)/ntsemi iv lasix drip daily weight i/o moniter,? Incentive spirometry, chest physio, patient also had pleuritic tap yesterday. nstemi:started on dual platelet,iv heprin ,statin incentive spirometry, chest physiotherapy, out of bed to chair,pt eval. cardiology following Moderate hyponatremia:improving?Likely realted to malignance.? better today, fluid restriction and if not getting better. History of CKD 3:? Creatinine at baseline.? History of diabetes:? Insulin sliding scale History of hypertension:acceptable,? Continue home amlodipine, hold lisinopril. Anemia of chronic disease H/H is stable. History of depression: Continue home sertraline DVT prophylaxis: Lovenox Inpatient need:Hypoxia porb sec chf,nsetmi. Quality Stroke Does the patient have a stroke diagnosis?: No VTE Prior VTE?: No VTE Risk Level:: Medical - moderate - high VTE Device Contraindication: Treatment Not Indicated VTE Drug Contraindication: N/A - Med Ordered
[2021-07-24] MEDS: Sertraline HCL 100 MG TABLET 200 MG PO (08:08)
[2021-07-24] MEDS: Sennosides 8.6 MG TABLET 17.2 MG PO (08:08)
[2021-07-24] MEDS: Tolterodine Tartrate LA 2 MG CAP.ER.24H PO (08:08)
[2021-07-24] MEDS: Magnesium Oxide 400 MG TABLET PO (08:11)
[2021-07-24] MEDS: Furosemide 40 MG TABLET PO (08:12)
[2021-07-24] MEDS: Metoprolol Tartrate 12.5 MG HALFTAB PO (08:12)
[2021-07-24] MEDS: clonazePAM 0.5 MG TABLET PO (08:12)
[2021-07-24] MEDS: Clopidogrel Bisulfate 75 MG TABLET PO (08:12)
[2021-07-24] MEDS: Insulin Lispro 100 UNIT/ML 3 ML VIAL SUBCUT ×2 (08:13→12:04)
[2021-07-24] MEDS: Isosorbide Mononitrate 30 MG TAB.ER.24H 15 MG PO (08:13)
[2021-07-24] MEDS: 0.9 % Sodium Chloride Flush 3 ML SYRINGE IVFLUSH (08:16)
[2021-07-24 11:05] VITALS: BP 128/68; PULSE 65; RESP 18; TEMP 36.8; O2SAT 98
[2021-07-24 11:14] LABS: Glucose, Whole Blood 192 mg/dL (60-115)
[2021-07-24] MEDS: Famotidine 20 MG TABLET PO (12:04)
--- NOTE | 2021-07-24 12:45 | P.DS_ITS ---
DS: Providers Provider Date of Service: 07/24/21 Date of admission: 07/17/21 23:04 Primary care physician: Maddison Saini DO Consults: 07/19/21 10:28 Consult to Gastroenterology Routine Consulting Provider: [facility] [place] Gastroenterology Services Reason for consultation: elevated liver functions ,coagulapathy Has provider been notified: No 07/20/21 06:04 Consult to Cardiology Routine Consulting Provider: Cj Parham Reason for consultation: NSTEMI 07/20/21 07:20 Consult to Pulmonology Routine Consulting Provider: [facility] [place] Pulmonology Services Reason for consultation: `hypoxemic respiratory failure DS: Diagnosis Discharge Diagnosis (1) Pleural effusion: Status: Acute (2) Acute UT: Status: Acute DS: Summary Hospital Course Hospital Course: 81-year-old female with a past medical history of hypertension, hyperlipidemia, diabetes, CAD, CKD, anxiety, depression, arthritis, history of pancreatic cancer on chemotherapy presented to the hospital today with a chief complaint of abdominal pain.? Patient reports that over the past 2 days she has been having abdominal pain, diffuse in nature,? associated nausea and vomiting; denies any blood in the v omitus.? Also complains of diarrhea yesterday, denies any blood in the stool.? Reports she has not been eating well for the past 2 days.? Denies any chest pain or palpitations.? ?denies any fever chills cough.? Denies any urinary symptoms .? Review of all other systems is negative except mentioned above ER course: Per ER team patient noted to have diffuse abdominal tenderness; CT abdomen showed? no acute intra-abdominal process; noted bilateral moderate pleural effusions; admitted to the hospital for further management. Hospital course:patient was admitted due to nausea vomiting and abdominal pain secondary to chemo - initially received the supportive care with hydration and antiemetics and subsequently patient hospital course complicated by CHF and NSTEMI -started on IV heparin as well as IV Lasix drip, added aspirin, Plavix, Imdur, low-dose metoprolol. Lisinopril was placed on hold due to CKD, amlodipine also adjusted since patient is started on metoprolol as well as Imdur. Patient has anemia- post chemo, required 1 PRBC H&H is stable now between 9-10 range. liver functions as slightly up- but maintain from last 3 days in the same range: Probably LFTs are elevated secondary to CHF and in the setting of NSTEMI. will continue statin says since so far LFTs the is same range. Patient seems to be improved now- going home with dual antiplatelet therapy as well as Lasix and CHF education given in detail. Patient is monitor CBC and BMP, LFTs outpatient with PCP in 1 week. Cardiology may arrange their own appointment. CHF education given, encouraged strongly for diet compliance, daily weights, if weight gain above 2 lb a week then consider following up with PCP may need adjustment of diuretics further. Above management discussed with the patient in detail With patient's son. Diabetes: Most of the fingersticks are below 200, hemoglobin A1c is around 8.7 patient is not on any diabetic medications at home. We will avoid aggressive diabetic control with medications currently. Strongly suggest diabetic diet and itscompliance, monitor fingersticks at home - As per son patient takes glipizide at home, continue that. Follow-up with PCP. incodental finding on intial ct abd :LIVER: Cystic lesion posterior right lobe segment 7 appears without sitting change allowing for technical differences. Similar changes left lobe favoring cysts. This is unchanged as well. Granulomas again noted. No new lesions. Small amount of perihepatic free fluid.? above is possible liver cysts(also present on mri in 11/09) -follow up with oncology Dr Mccormick for above. PT saw the patient recommended home with services. Plan: Continue to take medications for recent heart attack including aspirin, Plavix, Imdur, metoprolol, statin. Continue to take Lasix for heart failure, heart failure education was given, please see above. Follow diabetic diet and monitor fingersticks for diabetes. follow-up with Dr. Mccormick for pancreatic cancer and possible liver cysts. cardiology may arrange their own appointment. Time Spent with Patient Time attestation: Total time spent providing and/or coordinating discharge services: Discharge coordination time: Greater than 30 minutes Quality: Safe Use of Opioids Does Pt have an Active Cancer Diagnosis on the Problem List?: No Quality: Stroke Does the patient have a stroke diagnosis?: No Physical Exam Vital Signs: Vital Signs: Last Vital Signs Temp 98.3 F 07/24/21 11:05 Pulse 65 07/24/21 11:05 Resp 18 07/24/21 11:05 BP 128/68 07/24/21 11:05 Pulse Ox 98 07/24/21 11:05 BMI result Body Mass Index 21.4 ? ?Appearance: Alert.? Oriented X3.? not in distress.? cvs: rrr, [id number] , no murmur res: air enrty diminshed ,sacttered rales at base. abd: no rebound or guarding ,nt, bs present. ext pulses present , no cyanosis. neuro: axo3 , nonfocal DS: Data Data Completed and Pending Completed studies during hospitalization [Text1]: Pending at discharge 07/19/21 12:00 Cytology [PTH] Urgent Labs on day of discharge: Laboratory Results - last 24 hr 07/23/21 07/23/21 07/23/21 05:54 15:59 17:03 WBC RBC Hgb Hct MCV MCH MCHC RDW Plt Count MPV Absolute Nucleated RBC Nucleated RBC % (auto) POC Glucose 173 H Total Bilirubin 0.9 0.7 Direct Bilirubin 0.7 H 0.4 AST 230 H 236 H ALT 192 H 210 H Alkaline Phosphatase 150 H 160 H B-Natriuretic Peptide Total Protein 4.7 L 5.2 L Albumin 2.5 L 2.7 L 07/23/21 07/23/21 07/24/21 17:03 19:38 06:38 WBC 8.0 RBC 3.55 L Hgb 10.5 L Hct 30.0 L MCV 84.5 MCH 29.6 MCHC 35.0 RDW 14.0 Plt Count 188 MPV 11.6 Absolute Nucleated RBC 0.160 H Nucleated RBC % (auto) 2.0 H POC Glucose 191 H Total Bilirubin Direct Bilirubin AST ALT Alkaline Phosphatase B-Natriuretic Peptide 1631 H Total Protein Albumin 07/24/21 07/24/21 07:17 11:06 WBC RBC Hgb Hct MCV MCH MCHC RDW Plt Count MPV Absolute Nucleated RBC Nucleated RBC % (auto) POC Glucose 162 H 192 H Total Bilirubin Direct Bilirubin AST ALT Alkaline Phosphatase B-Natriuretic Peptide Total Protein Albumin Preliminary micro results at discharge 07/19/21 17:00 Anaerobic Culture - Preliminary Pleura No growth to date. Additional Comments Additional comments: CT/CT chest wo con IMPRESSION: 1.? Extensive consolidation within the left lower lobe. In the setting of recent left-sided thoracentesis, this could represent reexpansion pulmonary edema. In the proper clinical setting, pneumonia could also have this appearance. 2.? Trace residual left pleural effusion noted. 3.? Moderate right pleural effusion. Adjacent dense right lower lobe opacity is favored to at least partially be due to atelectasis. 4.? Regions of groundglass opacity in the upper lobes, left greater than right, which could be secondary to edema or infection. 5.? Interlobular septal thickening consistent with a component of interstitial edema. CT/CT abdomen pelvis wo con IMPRESSION: ? 1. Bilateral moderate-sized pleural effusions. 2. Trace perihepatic ascites. 3. Limited imaging due to lack of IV and oral contrast. Diverticulosis without acute inflammatory changes. ? LIVER: Cystic lesion posterior right lobe segment 7 appears without sitting change allowing for technical differences. Similar changes left lobe favoring cysts. This is unchanged as well. Granulomas again noted. No new lesions. Small amount of perihepatic free fluid.? echo: Conclusions: - 1. Scey-sn-qoxrgmac LV systolic dysfunction with underlying? ? regional wall motion abnormality consistent with ischemic? cardiomyopathy with? grade 2 diastolic dysfunction ? 2. Moderate left atrial enlargement? 3. At least moderate mitral regurgitation? 4. Moderately elevated right ventricular systolic pressure with? mildly elevated right atrial pressures ? 5. No? gross pericardial effusion? Discharge Plan Discharge Patient Disposition: Home Health Service Discharge Diagnosis: chf ,nstemi Referrals: [facility] [Outside] - 1 Week Jacquelyn Mccormick MD [Physician] - 2 Weeks ( follow-up in 2 weeks.) Maddison Saini DO [Primary Care Provider] - 1 Week Discharge Medications: New atorvastatin 40 mg Tablet 40 mg PO BEDTIME Qty: 30 0RF isosorbide mononitrate 30 mg Tablet Extended Release 24 Hr 30 mg PO DAILY Qty: 30 0RF Protocol: Hold for SBP< HOLD for SBP < : 90 aspirin 81 mg Tablet,Delayed Release (Dr/Ec) 81 mg PO BEDTIME Qty: 30 0RF clopidogrel 75 mg Tablet 75 mg PO DAILY Qty: 30 0RF magnesium oxide 400 mg (241.3 mg magnesium) Tablet 400 mg PO BIDPC Qty: 10 0RF furosemide 40 mg Tablet 40 mg PO DAILY Qty: 30 0RF Protocol: Hold for SBP< HOLD for SBP < : 90 famotidine 20 mg Tablet 20 mg PO DAILY Qty: 30 0RF metoprolol tartrate 25 mg tablet 12.5 mg PO DAILY Qty: 20 0RF Continued tolterodine 2 mg capsule,extended release 24hr 2 mg PO DAILY 0RF sennosides [senna] 8.6 mg tablet 17.2 mg PO DAILY 0RF clonazepam 0.5 mg tablet 0.5 mg PO BID 0RF sertraline 100 mg tablet 200 mg PO DAILY 0RF simethicone [Gas Relief Extra Strength] 125 mg capsule 125 mg PO NEEDED 0RF aspirin 81 mg tablet,delayed release (DR/EC) 81 mg PO DAILY 0RF ondansetron 8 mg tablet,disintegrating 8 mg PO Q8H PRN (Reason: nausea) 0RF Changed amlodipine 5 mg tablet 2.5 mg PO BEDTIME Qty: 0 0RF Held lisinopril 20 mg tablet 40 mg PO DAILY 0RF Hold Instructions: hold due to ckd Discontinued pantoprazole 40 mg tablet,delayed release (DR/EC) 40 mg PO DAILY 0RF Discharge Orders: Discharge Order (Routine); Ordered 07/24/21 Ordered By: Kathi Virk Diet: advance to usual diet, diabetic diet and low fat, low cholesterol Activity on Discharge: As tolerated Stand Alone Forms: Patient Portal Discharge page Care Plan Goals: patient was admitted due to nausea vomiting and abdominal pain secondary to chemo - initially received the supportive care with hydration and antiemetics and subsequently patient hospital course complicated by CHF and NSTEMI -started on IV heparin as well as IV Lasix drip, added aspirin, Plavix, Imdur, low-dose metoprolol. Lisinopril was placed on hold due to CKD, amlodipine also adjusted since patient is started on metoprolol as well as Imdur. Patient has anemia- post chemo, required 1 PRBC H&H is stable now between 9-10 range. liver functions as slightly up- but maintain from last 3 days in the same range: Probably LFTs are elevated secondary to CHF and in the setting of NSTEMI. will continue statin says since so far LFTs the is same range. Patient seems to be improved now- going home with dual antiplatelet therapy as well as Lasix and CHF education given in detail. Atelectasis: continued to use incentive spirometry, stay out of bed and mobile. advised strongly Deep breathing exercises. Patient is monitor CBC and BMP, LFTs outpatient with PCP in 1 week. Cardiology may arrange their own appointment. Health Concerns: As above. CHF education given, encouraged strongly for diet compliance, daily weights, if weight gain above 2 lb a week then consider following up with PCP may need adjustment of diuretics further. Plan of Treatment: As above. Assessment: As above. Patient Instructions: Heart Attack (DC), Heart Failure (DC), Type 2 Diabetes Management for Adults (DC) Discharge Date/Time: 07/24/21 14:33
--- NOTE | 2021-07-24 13:03 | W.MHC.F2F ---
Service Date Service Date: 07/24/21 Encounter Date of encounter: 07/24/21 Reasons for Services Signs and symptoms assessed: CHF, NSTEMI, atelectasis Reason for fpc: CV/CP assess and/or care, diabetic teaching, monitoring of unstable blood sugar, medication management, medication treatment and teach disease management Reason for physical therapy: home safety and mobility, therapeutic exercises, restore joint function, gait/transfer training, assess need for DME, ADL training, energy conservation and other MD Overseeing Care: Maddison Saini Homebound: Leaving the home is medically contraindicated at this time without the asist of a device and/or another person due th the listed conditions above and below. Reason homebound: weakness related to hospital stay Homebound supporting statement: patient is generalized weak and has multiple comorbidities including NSTEMI and CHF during this admission - patient need help with appointments, PT, blood draws. Certification: Based on the above findings, I certify that this patient is confined to the home and needs intermittent fpc care, physical therapy and/or speech therapy, or continues to need occupational therapy. The patient is under my care, and I have initiated the establishment of the plan of care. The patient will be followed by a physician who will periodically review the plan of care.
--- NOTE | 2021-07-24 14:23 | MHC.CM.PN ---
PT TO DC HOME TODAY WITH RESUMPTION OF [employer]DU[employer] TE[employer] SERVICES AND NEW VNA CM SPOKE TO PTS SON, GERHARD AT BEDSIDE, HE IS AWARE OF DC AND THAT [facility] WILL BE PROVIDING THE [facility]NA (PT/SN) SERVICES GERHARD IS AGREEABLE TO DC PLAN AND WILL TRANSPORT PT
== END 2021-07-24 14:33 | disposition home health service (06) | DRG 280 ==
LOC: HO.ED 23:06 → HO.EDOVER 23:12 → HO.S3 07-18 13:44 → HO.ICU 07-20 00:35 → HO.IMC 07-20 12:28
PROVIDERS: Internal Medicine; Radiology Diagnostic Radiology; Admitting Provider Hospitalist; Emergency Provider Emergency Medicine Emergency Medical Services; PCP Family Medicine; Visit Provider Internal Medicine
PROC: 0W9B3ZZ Drainage of Left Pleural Cavity, Percutaneous Approach (ICD-10-PCS; principal; 2021-07-19 15:30)
DX: I13.0 Hypertensive heart and chronic kidney disease with heart failure and stage 1 through stage 4 chronic kidney disease, or unspecified chronic kidney disease (principal); J96.01 Acute respiratory failure with hypoxia; I21.4 Non-ST elevation (NSTEMI) myocardial infarction; I50.21 Acute systolic (congestive) heart failure; E87.1 Hypo-osmolality and hyponatremia; C25.9 Malignant neoplasm of pancreas, unspecified; I25.10 Atherosclerotic heart disease of native coronary artery without angina pectoris; E11.22 Type 2 diabetes mellitus with diabetic chronic kidney disease; F32.A Depression, unspecified; E78.5 Hyperlipidemia, unspecified; N18.30 Chronic kidney disease, stage 3 unspecified; D63.1 Anemia in chronic kidney disease; M19.90 Unspecified osteoarthritis, unspecified site; Z20.822 Contact with and (suspected) exposure to COVID-19; R11.2 Nausea with vomiting, unspecified; T45.1X5A Adverse effect of antineoplastic and immunosuppressive drugs, initial encounter; K76.89 Other specified diseases of liver; E86.0 Dehydration; Z91.040 Latex allergy status; Z88.6 Allergy status to analgesic agent; Z88.8 Allergy status to other drugs, medicaments and biological substances; Z79.02 Long term (current) use of antithrombotics/antiplatelets; Z79.82 Long term (current) use of aspirin; Z79.899 Other long term (current) drug therapy
CPT/HCPCS: 32555; 36415; 71045; 71046; 71250; 74176; 80048; 80053; 80076; 81001; 82607; 82746; 82945; 82947; 83010; 83036; 83540; 83605; 83615; 83690; 83735; 83880; 84157; 84484; 85007; 85014; 85018; 85025; 85027; 85384; 85610; 85730; 86850; 86900; 86901; 86923; 87070; 87073; 87205; 87635; 88112; 88305; 89051; 93005; 93306; 96361; 96374; 96375; 97162; 99285; C1758; J1170; J1650; J1940; J2405; J3430; J3475; P9016; P9047

== ENCOUNTER 2021-07-27 13:48 | Emergency (ER) | payer OTHER, SELFPAY ==
--- NOTE | ~2021-07-27 | CT_ITS ---
EXAMINATION: CT HEAD WITHOUT CONTRAST CT CERVICAL SPINE WITHOUT CONTRAST CLINICAL INFORMATION: Head injury. Head pain. Fall. COMPARISON: CT head and cervical spine from 11/04/2012. TECHNIQUE: Contiguous axial imaging was performed from the skull base to vertex without intravenous administration of contrast. Contiguous axial imaging was performed from the upper chest through the skull base without intravenous administration of contrast. Coronal and sagittal reformats were obtained at the acquisition workstation. This CT examination was performed using dose optimization techniques as appropriate, variously including the following: *Automated exposure control. *Adjustment of mA and/or kV according to patient size (this includes techniques or standardized protocols for targeted exams where dose is matched to indication/reason for exam; i.e. extremities or head). *Use of iterative reconstruction technique. DLP: 1058 mGy-cm FINDINGS: Head: There is no evidence of acute intracranial hemorrhage or edematous territorial infarction. Scattered hypoattenuation in the periventricular and deep white matter are consistent with moderate microangiopathy. Schmitz-white matter differentiation is preserved. Proportional prominence of the ventricles and sulcal spaces. No evidence for obstructive hydrocephalus. No abnormal mass effect or midline shift. No extra-axial fluid collections. Calcific atherosclerotic disease of the intracranial internal carotid and vertebral arteries. No hyperdense vessel sign. No acute soft tissue or osseous abnormalities. Mild mucosal thickening of the paranasal sinuses. The mastoid air cells and middle ear cavities are clear. Cervical Spine: The atlantooccipital and atlantoaxial articulations remain well aligned. Moderate pannus formation posterior to the dens. There is anatomic alignment of the vertebral bodies and posterior elements. No evidence of acute fracture or subluxation. The vertebral body heights are maintained. Moderate degenerative disc disease from C3-T1. Moderately calcified disc extrusion with superior migration at C4-C5. There also appears to be a moderate posterior disc herniation at C5-C6. Apparent moderate spinal canal stenoses at C4-C5 and C5-C6. Facet and uncovertebral joint arthropathy leads to osseous encroachment on the neural foramina from C2-C5. There is no prevertebral soft tissue swelling. The thyroid gland and remaining cervical soft tissues are normal in appearance. Right internal jugular central venous catheter in place. Moderate right and small left pleural effusions. CT/CT cervical spine wo con IMPRESSION: 1. No evidence of acute intracranial hemorrhage or edematous territorial infarction. Moderate underlying microangiopathy and generalized cerebral volume loss. 2. No evidence of acute fracture or traumatic subluxation of the cervical spine. 3. Moderate to advanced multilevel degenerative spondyloarthropathy of the cervical spine. On this limited exam without intrathecal contrast, there appears to be moderate spinal canal stenoses at C4-C5 and C5-C6. 4. Moderate right and mild left pleural effusions.
[2021-07-27 13:49] VITALS: BP 150/80; PULSE 85; RESP 18; TEMP 37; O2SAT 98; BMI 21.5
--- NOTE | 2021-07-27 15:36 | ED_ITS ---
HPI - General Adult General Chief complaint: Fall Stated complaint: Head inj Time Seen by Provider: 07/27/21 15:36 Source: patient, family (son) and managing consultant clinical professor Mode of arrival: ambulatory Limitations: language barrier History of Present Illness HPI narrative: Patient is a 81 year old female presenting to the emergency department today with a headache after a slip and fall. Patient states that she was in the bathroom when she slipped and fell, hitting her head on the side of the bath tub. Patient states that she was prescribed a blood thinner but has not picked it up yet due to insurance problems. Patient denies any dizziness, lightheadedness, abdominal pain, nausea, vomiting, fever, chills, blurry vision, double vision, loss of vision, chest pain, difficulty breathing, shortness of breath, back pain, night sweats, pain with urination, increased urinary frequency, increased urinary urgency, blood in her urine or stool, syncope or a near syncopal episode, bowel incontinence, bladder incontinence, bowel retention, bladder retention, or any other complaints at this time. Patient's son states that he is in the home to help care for her. Onset (ago): hour(s) Location: head Radiation: non-radiation Severity: mild Severity scale (1-10): 2 Quality: dull Pain Consistency: constant Relieving factors: none Exacerbating factors: none Associated symptoms: denies other symptoms Treatments prior to arrival: none Related Data Home Medications Medication Instructions Recorded Confirmed aspirin 81 mg tablet,delayed 81 mg PO DAILY 07/18/21 07/18/21 release clonazepam 0.5 mg tablet 0.5 mg PO BID 07/18/21 07/18/21 lisinopril 20 mg tablet 40 mg PO DAILY 07/18/21 07/18/21 ondansetron 8 mg disintegrating 8 mg PO Q8H PRN nausea 07/18/21 07/18/21 tablet sennosides 8.6 mg tablet (senna) 17.2 mg PO DAILY 07/18/21 07/18/21 sertraline 100 mg tablet 200 mg PO DAILY 07/18/21 07/18/21 simethicone 125 mg capsule (Gas 125 mg PO NEEDED 07/18/21 07/18/21 Relief Extra Strength) tolterodine 2 mg capsule,extended 2 mg PO DAILY 07/18/21 07/18/21 release 24 hr Previous Rx's Medication Instructions Recorded amlodipine 5 mg tablet 2.5 mg PO BEDTIME #0 tabs 07/24/21 aspirin 81 mg tablet,delayed 81 mg PO BEDTIME #30 tabs 07/24/21 release atorvastatin 40 mg tablet 40 mg PO BEDTIME #30 tabs 07/24/21 clopidogrel 75 mg tablet 75 mg PO DAILY #30 tabs 07/24/21 famotidine 20 mg tablet 20 mg PO DAILY #30 tabs 07/24/21 furosemide 40 mg tablet 40 mg PO DAILY #30 tabs 07/24/21 isosorbide mononitrate 30 mg 30 mg PO DAILY #30 tabs 07/24/21 tablet,extended release 24 hr magnesium oxide 400 mg (241.3 mg 400 mg PO BIDPC #10 tabs 07/24/21 magnesium) tablet metoprolol tartrate 25 mg tablet 12.5 mg PO DAILY #20 tabs 07/24/21 Allergies Allergy/AdvReac Type Severity Reaction Status Date / Time prochlorperazine Allergy Severe SEIZURE Verified 07/17/21 18:49 adhesive tape [ADHESIVE TAPE] Allergy Intermediate RASH Verified 07/17/21 18:49 latex [LATEX] Allergy Intermediate RASH Verified 07/17/21 18:49 clarithromycin Allergy Mild RASH Verified 07/17/21 18:49 hydrochlorothiazide Allergy Mild RASH Verified 07/17/21 18:49 metoclopramide [From Reglan] AdvReac Severe SEIZURES Verified 07/17/21 18:49 lactose AdvReac Mild Gastrointestinal Verified 07/22/21 09:56 Upset ibuprofen AdvReac Unknown unknown Verified 07/17/21 18:49 BIAXIN Allergy Intermediate RASH Uncoded 05/19/21 13:30 Review of Systems Constitutional: Constitutional: Reports no additional constitutional complaints, Denies chills, Denies fever(s), Reports headache(s) and Denies night sweats Eyes: Eyes: Reports no additional eye complaints, Denies blurry vision, Denies change in vision, Denies diplopia, Denies eye discharge, Denies loss of vision and Denies eye pain ENT: Denies dizziness and Reports headache(s) Cardiovascular: Cardiovascular: Reports no additional cardiovascular complaints, Denies chest pain, Denies lightheadedness, Denies Loss of Consciousness and Denies dyspnea Respiratory: Respiratory: Reports no additional respiratory complaints and Denies dyspnea Gastrointestinal: Gastrointestinal: Reports no additional gastrointestinal complaints, Denies abdominal pain, Denies melena, Denies hematochezia, Denies change in bowel habits and Denies change in stool character Genitourinary: Genitourinary: Denies hematuria, Denies urinary frequency, Denies dysuria, Denies urinary incontinence, Denies urinary hesitancy and Denies urinary urgency Musculoskeletal: Musculoskeletal: Reports no additional musculoskeletal complaints, Denies numbness and Denies tingling Neurologic: Denies dizziness, Reports headache(s), Denies loss of vision, Denies numbness and Denies tingling Psychiatric: Psychiatric: Reports no additional psychiatric complaints Endocrine: Endocrine: Reports no additional endocrine complaints Hematologic/Lymphatic: Hematologic/Lymphatic: Reports no additional hematologic/lymphatic complaints Allergic/Immunologic: Allergic/Immunologic: Reports no additional allergic/immunologic complaints PMFSH Past Medical History Attestation statement: The following information was validated with the patient. Source: old records reviewed Medical History Anemia Arthritis Atherosclerotic cardiovascular disease Atypical pneumonia CAD (coronary artery disease) Chest pain CHF (congestive heart failure) CKD (chronic kidney disease) Depression Diabetes Essential hypertension HLD (hyperlipidemia) HTN (hypertension) Pancreatic cancer Pleural effusion Precordial chest pain Respiratory failure with hypoxia Surgical History History of History of esophagogastroduodenoscopy (EGD) History of hysteroscopy Hx of cholecystectomy Hx of colonoscopy Hx of eye surgery Family History Family History Father Colon cancer Myocardial infarction Mother Uterine cancer Social History Social History Household Members: Family Housing: House Do you presently have visiting nurse or other home services: No Alcohol intake: never Patient Tobacco Use Status: Never used Tobacco Second Hand Smoke Exposure: No Advance Directives: No Advance Directives Information Provided: No Advance Directives Date on File: 05/14/20 service: No Current occupational status: disabled Sexual orientation: Straight/Heterosexual Gender identity: Female Physical Exam ED Vital Signs: Vital Signs - 24 hr 07/27/21 13:49 07/27/21 19:30 Temperature 98.6 F Pulse Rate 85 67 Respiratory Rate 18 18 Blood Pressure 150/80 H Pulse Oximetry 98 98 Oxygen Delivery Method Room Air Room Air BMI result Body Mass Index 21.5 Const General: cooperative, no acute distress, alert and awake Nutritional Appearance: well nourished Orientation/consciousness: patient oriented x3 Limitations: no limitations HENMT Head: Yes normal to inspection and Yes atraumatic Ears: hearing grossly normal bilaterally and external ears normal General nose exam: Normal external nose present, no nasal discharge noted and no epistaxis Face and sinus: Yes normal facial exam, No abrasion and No laceration Mouth: Normal oral and palatal mucosa present, no drooling and no muffled voice Eyes General: appearance normal, both eyes and all related structures Periorbital: periorbital findings normal Eyelids: Yes eyelids normal Conjunctivae: conjunctivae normal Pupils: Equal, round and reactive pupils present EOM: EOMs intact bilaterally Neck Neck: Yes normal visual inspection, Yes full ROM and Yes no lymphadenopathy Chest Chest palpation & inspection: normal inspection of the chest Resp Effort & Inspection: normal respiratory effort and able to speak in complete sentences Auscultation: clear to auscultation bilaterally Cardio Rate: regular rate Rhythm: regular rhythm GI Inspection: Yes normal to inspection Neuro General: patient oriented x3 and moves all extremities Cranial nerves: Yes Equal, round and reactive pupils present Cognition (Neuro): normal cognition Motor exam (neuro): 5/5 motor strength present throughout Sensory Exam: Normal double simultaneous stimulation for sensation Coordination: [id number] test normal Extrem General: Yes normal to inspection, Yes full ROM and Yes capillary refill normal Psych Appearance: grossly normal Mental Status: mental status grossly normal Affect: normal affect Attitude: cooperative Thought process: Normal thought process present Thought content: Normal thought content present Insight: Good insight present (Psych) NIH Stroke Scale Internal: Initial- Upon Arrival Time: 15:36 Level of Consciousness: Alert Level of Consciousness Questions: Answers both questions correctly Level of Consciousness Commands: Performs both tasks correctly Best Gaze: Normal Visual: No visual loss Facial Palsy: Normal Motor Arm (Right): No drift Motor Arm (Left): No drift Motor Leg (Right): No drift Motor Leg (Left): No drift Limb Ataxia: Absent Sensory: Normal Best Language: No aphasia Dysarthia: Normal Extinction and Inattention: No abnormality Score: 0 Medical Decision Making MDM Narrative Medical decision making narrative: Patient is a 81 year old female presenting to the emergency department today with a headache after a fall. Patient's physical exam was unremarkable. Patient's head and c-spine CT showed no acute process. I explained my physical exam findings as well as all test results to the patient and the patient's son. I answered all questions asked by the patient and the patient's son. I stressed the importance of the patient taking her medication as prescribed. I stressed the importance of the patient following up with her primary care provider. I stressed the importance of the patient returning to the emergency department immediately if her symptoms were to worsen or if she were to develop any dizziness, shortness of breath, difficulty breathing, chest pain, blurry vision, loss of vision, nausea, vomiting, abdominal pain, fever, chills, back pain, or any other complaints. Patient and the patient's son verbalized agreement and understanding with this treatment plan and discharge. Differential Diagnosis Differential Diagnosis: slip and fall, fall, headache, concussion Medical Records Medical records reviewed: Yes I reviewed the patient's medical records. Imaging Data CT head and C-Spine: Attestation: I personally reviewed and interpreted this imaging study as follows: My impression: No acute process. Radiologist's impression: EXAMINATION: CT HEAD WITHOUT CONTRAST CT CERVICAL SPINE WITHOUT CONTRAST CLINICAL INFORMATION: Head injury. Head pain. Fall. COMPARISON: CT head and cervical spine from 11/04/2012. TECHNIQUE: Contiguous axial imaging was performed from the skull base to vertex without intravenous administration of contrast. Contiguous axial imaging was performed from the upper chest through the skull base without intravenous administration of contrast. Coronal and sagittal reformats were obtained at the acquisition workstation. This CT examination was performed using dose optimization techniques as appropriate, variously including the following: *Automated exposure control. *Adjustment of mA and/or kV according to patient size (this includes techniques or standardized protocols for targeted exams where dose is matched to indication/reason for exam; i.e. extremities or head). *Use of iterative reconstruction technique. DLP: 1058 mGy-cm FINDINGS: Head: There is no evidence of acute intracranial hemorrhage or edematous territorial infarction. Scattered hypoattenuation in the periventricular and deep white matter are consistent with moderate microangiopathy. Schmitz-white matter differentiation is preserved. Proportional prominence of the ventricles and sulcal spaces. No evidence for obstructive hydrocephalus. No abnormal mass effect or midline shift. No extra-axial fluid collections. Calcific atherosclerotic disease of the intracranial internal carotid and vertebral arteries. No hyperdense vessel sign. No acute soft tissue or osseous abnormalities. Mild mucosal thickening of the paranasal sinuses. The mastoid air cells and middle ear cavities are clear. Cervical Spine: The atlantooccipital and atlantoaxial articulations remain well aligned. Moderate pannus formation posterior to the dens. There is anatomic alignment of the vertebral bodies and posterior elements. No evidence of acute fracture or subluxation. The vertebral body heights are maintained. Moderate degenerative disc disease from C3-T1. Moderately calcified disc extrusion with superior migration at C4-C5. There also appears to be a moderate posterior disc herniation at C5-C6. Apparent moderate spinal canal stenoses at C4-C5 and C5-C6. Facet and uncovertebral joint arthropathy leads to osseous encroachment on the neural foramina from C2-C5. There is no prevertebral soft tissue swelling. The thyroid gland and remaining cervical soft tissues are normal in appearance. Right internal jugular central venous catheter in place. Moderate right and small left pleural effusions. CT/CT head/brain wo con IMPRESSION: 1. No evidence of acute intracranial hemorrhage or edematous territorial infarction. Moderate underlying microangiopathy and generalized cerebral volume loss. ? 2. No evidence of acute fracture or traumatic subluxation of the cervical spine. ? 3. Moderate to advanced multilevel degenerative spondyloarthropathy of the cervical spine. On this limited exam without intrathecal contrast, there appears to be moderate spinal canal stenoses at C4-C5 and C5-C6. ? 4. Moderate right and mild left pleural effusions. Dictated By: Jose Raul Chaidez DO Signed By: Electronically signed by Jose Raul Chaidez DO 07/27/21 265 Discharge Plan Discharge Clinical Impression: Fall Patient Disposition: Home, Self-Care Instructions: Fall Prevention for Older Adults (ED) Additional Instructions: Follow up with your primary care provider. Return to the emergency department immediately if your symptoms worsen or if you develop any dizziness, shortness of breath, difficulty breathing, chest pain, blurry vision, loss of vision, nausea, vomiting, abdominal pain, fever, chills, back pain, or any other complaints. Prescriptions: No Action tolterodine 2 mg capsule,extended release 24hr 2 mg PO DAILY sennosides [senna] 8.6 mg tablet 17.2 mg PO DAILY lisinopril 20 mg tablet 40 mg PO DAILY Hold Instructions: hold due to ckd clonazepam 0.5 mg tablet 0.5 mg PO BID sertraline 100 mg tablet 200 mg PO DAILY simethicone [Gas Relief Extra Strength] 125 mg capsule 125 mg PO NEEDED aspirin 81 mg tablet,delayed release (DR/EC) 81 mg PO DAILY ondansetron 8 mg tablet,disintegrating 8 mg PO Q8H PRN (Reason: nausea) atorvastatin 40 mg Tablet 40 mg PO BEDTIME Qty: 30 0RF isosorbide mononitrate 30 mg Tablet Extended Release 24 Hr 30 mg PO DAILY Qty: 30 0RF Protocol: Hold for SBP< HOLD for SBP < : 90 aspirin 81 mg Tablet,Delayed Release (Dr/Ec) 81 mg PO BEDTIME Qty: 30 0RF clopidogrel 75 mg Tablet 75 mg PO DAILY Qty: 30 0RF magnesium oxide 400 mg (241.3 mg magnesium) Tablet 400 mg PO BIDPC Qty: 10 0RF furosemide 40 mg Tablet 40 mg PO DAILY Qty: 30 0RF Protocol: Hold for SBP< HOLD for SBP < : 90 famotidine 20 mg Tablet 20 mg PO DAILY Qty: 30 0RF amlodipine 5 mg tablet 2.5 mg PO BEDTIME Qty: 0 0RF metoprolol tartrate 25 mg tablet 12.5 mg PO DAILY Qty: 20 0RF Referrals: Maddison Saini DO [Primary Care Provider] - Interventions: ED Discharge Assessment Last Done: 07/27/21 19:36 Discharge Date/Time: 07/27/21 19:42 Print Language: Finnish
[2021-07-27] MEDS: Acetaminophen 325 MG TABLET 650 MG PO (16:56)
[2021-07-27 19:30] VITALS: PULSE 67; RESP 18; O2SAT 98
== END 2021-07-27 19:42 | disposition home or self-care (01) ==
PROVIDERS: Emergency Provider Emergency Medicine; PCP Family Medicine
DX: R51.9 Headache, unspecified (principal); Z91.81 History of falling; E11.22 Type 2 diabetes mellitus with diabetic chronic kidney disease; I13.0 Hypertensive heart and chronic kidney disease with heart failure and stage 1 through stage 4 chronic kidney disease, or unspecified chronic kidney disease; N18.9 Chronic kidney disease, unspecified; I50.9 Heart failure, unspecified; E78.5 Hyperlipidemia, unspecified; Z79.82 Long term (current) use of aspirin; Z79.02 Long term (current) use of antithrombotics/antiplatelets
CPT/HCPCS: 70450; 72125; 99284

== ENCOUNTER 2021-11-15 11:21 | Inpatient (IN) | payer OTHER, SELFPAY ==
--- NOTE | ~2021-11-15 | CT_ITS ---
EXAMINATION: CT ABDOMEN AND PELVIS WITHOUT CONTRAST CLINICAL INFORMATION: Abdominal pain COMPARISON: Previous CT of the abdomen and pelvis June 2021 TECHNIQUE: Multidetector volumetric imaging was performed from the superior aspect of the liver through the pubic symphysis. Sagittal and coronal reformatted images were obtained on the technologist's workstation. This CT examination was performed using dose optimization techniques as appropriate, variously including the following: *Automated exposure control *Adjustment of mA and/or kV according to patient size (this includes techniques or standardized protocols for targeted exams where dose is matched to indication/reason for exam; i.e. extremities or head) *Use of iterative reconstruction technique DLP: 421 mGy-cm FINDINGS: Exam is limited due to lack of oral and IV contrast and LUNG BASES: There are bilateral small pleural effusions, right greater than left. LIVER, GALLBLADDER, AND BILIARY TREE: The there are multiple liver cysts. There are benign-appearing calcifications in the liver. The gallbladder has been removed. There is mild intra and extrahepatic biliary duct dilatation. The common bile duct measures 1 cm. This may be normal postcholecystectomy. PANCREAS: There are atrophic changes of the pancreas. There is dilatation of the main pancreatic duct measuring up to 1 cm. There is a question of cystic lesion in the body of the pancreas measuring 1 x 1.5 cm. SPLEEN: Unremarkable. ADRENAL GLANDS: Unremarkable. KIDNEYS AND URETERS: The kidneys are normal in size, shape, and attenuation. No hydronephrosis, hydroureter, or calculi seen. No perinephric stranding. BLADDER: Unremarkable. GASTROINTESTINAL TRACT: There is a large amount of ascites in the abdomen and pelvis. There is apparent wall thickening of the stomach versus changes due to underdistention. There are distended loops of fluid-filled small bowel. There are distended loops of proximal large bowel and question of bowel wall thickening. There is question of wall thickening of the left colon. There is diverticulosis of the sigmoid colon. No evidence of diverticulitis. No transition zone to suggest mechanical obstruction. There is evidence of severe atherosclerotic disease correlation with lactate level to exclude ischemia is recommended. No free air is seen. ABDOMINAL WALL: No significant hernia is appreciated. LYMPH NODES: Normal. VASCULAR: Severe atherosclerotic disease. No aneurysm. PELVIC VISCERA: There is a 2 x 3 cm left adnexal cyst. The uterus and right adnexa are unremarkable. OSSEOUS STRUCTURES: Degenerative changes of the spine and hip joints. CT/CT abdomen pelvis wo IV con IMPRESSION: Limited exam due to lack of oral and IV contrast. Abnormal appearing bowel probably representing an ileus. There is question of wall thickening of the stomach and left colon. There is question of wall thickening of the right colon. There is severe atherosclerotic disease and correlation with lactate level to exclude ischemia recommended. Diverticulosis of the distal colon. No evidence of diverticulitis. Large amount of ascites in the abdomen and pelvis. This is increased from June 2021 exam. Liver cysts. Postcholecystectomy. Mild intra and extrahepatic biliary duct dilatation and severe dilatation of the main pancreatic duct. Question 1 x 1.5 cm cystic lesion in the body the pancreas. Findings will be communicated by the [place] work flow rock star.. Fleischner guidelines were followed.
--- NOTE | ~2021-11-15 | US_ITS ---
EXAMINATION: ULTRASOUND-GUIDED PARACENTESIS CLINICAL INFORMATION: Ascites. Anasarca. Malignancy. COMPARISON: Previous CT of the abdomen and pelvis from yesterday TECHNIQUE: Comparison benefits including bleeding, infection and low blood pressure were discussed with the patient and informed consent was obtained. The right mid abdomen was prepped and draped in the usual sterile fashion. The skin and soft tissues were anesthetized with 1% lidocaine plain. Using ultrasound guidance and a 5 Urdu rapid catheter, access to the ascitic fluid was obtained. 500 mL of clear yellow fluid was removed. Diagnostic specimen was sent for Gram stain, culture and cytology. FINDINGS: There is a moderate amount of ascites. Ascites appears loculated with multiple septations. US/US paracentesis abd w/image IMPRESSION: Ultrasound-guided paracentesis.
--- NOTE | ~2021-11-15 | XR_ITS ---
EXAMINATION: XR CHEST CLINICAL INFORMATION: Rule out pulmonary edema COMPARISON: 07/21/2021 TECHNIQUE: Frontal view of the chest was obtained. FINDINGS: Right IJ port catheter tip lies in the region of the mid SVC. Lung volumes are symmetric. No focal consolidation is seen. No evidence of pneumothorax, pleural effusion, or pulmonary edema. Cardiac size is within normal limits. Calcification is present at the aortic arch. Degenerative changes are noted in the spine and shoulders. XR/XR chest 1V IMPRESSION: No acute cardiopulmonary findings.
--- NOTE | ~2021-11-15 | XR_ITS ---
EXAMINATION: XR ABDOMEN KUB CLINICAL INDICATION: Follow-up ileus COMPARISON: Previous CT 11/15/2021 TECHNIQUE: AP view of the abdomen. FINDINGS: There are still gas-filled distended loops of small and large bowel. This appears slightly improved from previous CT 11/15/2021. There is no evidence of free air. There is evidence of atherosclerotic disease. There are degenerative changes of the spine and hip joints. XR/XR KUB IMPRESSION: Improving small and large bowel dilatation compared to 11/15/2021 exam.
[2021-11-15 11:33] VITALS: BP 104/58; PULSE 84; RESP 18; TEMP 36.8; O2SAT 100; BMI 21.4
--- NOTE | 2021-11-15 11:37 | ECG_ITS ---
Test Reason : SOB Blood Pressure : / mmHG Vent. Rate : 076 BPM Atrial Rate : 076 BPM P-R Int : 134 ms QRS Dur : 130 ms QT Int : 466 ms P-R-T Axes : 063 076 014 degrees QTc Int : 524 ms Normal sinus rhythm Right bundle branch block Abnormal ECG When compared with ECG of 19-JUL-2021 21:46, ND interval has decreased Referred By: Generic ED Physician Electronically Signed By:RAFFI SHABAZZ
[2021-11-15 13:24] LABS: MANUAL DIFF FLAG NO
[2021-11-15 13:30] LABS: Basophils Percent Auto 0.4 % (0-2); Eosinophils Absolute Auto 0.1 X10*3/uL (0.0-0.4); Eosinophils Percent Auto 2.5 % (0-4); Hematocrit 28.8 % (37.0-47.0); Hemoglobin 9.7 g/dl (12.0-16.0); Imm Gran Abs Auto 0.02 X10*3/uL (0.00-0.03); Imm Gran Pct Auto 0.4 % (0.0-0.4); Lymphocytes Percent Auto 17.8 % (20-40); Mean Corpuscular HGB Conc 33.7 g/dl (31.0-35.0); Mean Corpuscular Volume 80.2 fL (80.0-98.0); Mean Platelet Volume 11.5 fL (9.4-12.3); Monocytes Absolute Auto 0.4 X10*3/uL (0.1-1.2); Monocytes Percent Auto 6.5 % (2-11); Neutrophils Absolute Auto 4.1 x10*3/uL (2.0-8.3); Neutrophils Percent Auto 72.4 % (45-73); Platelet Count 226 X10*3/uL (160-400); Red Blood Count 3.59 X10*6/uL (4.20-5.50); Red Cell Distribution Width 14.7 % (11.0-16.0); White Blood Count 5.7 X10*3/uL (4.8-10.8)
[2021-11-15 13:50] LABS: Anion Gap 18 (12-20); Blood Urea Nitrogen 21 mg/dL (9-16); Calcium 7.6 mg/dL (8.4-10.2); Carbon Dioxide 23 mmol/L (22-29); Chloride 95 mmol/L (96-108); Creatinine Clr Calc Pharmacy 14.3; Estimated Glomerular Filt Rate 21; Glucose Random 206 mg/dL (60-115); Sodium 133 mmol/L (135-145)
[2021-11-15 13:51] LABS: COVID-19 Test Negative (Negative); IDNOW Serial# 9DB6401D
--- NOTE | 2021-11-15 14:55 | ED_ITS ---
HPI - General Adult General Chief complaint: General Medical Stated complaint: swollen all over body/possible dehydration Time Seen by Provider: 11/15/21 13:22 Source: patient and family Mode of arrival: ambulatory Limitations: no limitations History of Present Illness HPI narrative: Patient comes to the emergency room complaining anasarca, lack of appetite/failure to thrive, chronic epigastric pain secondary to pancreatic cancer. Family reports that the patient has been eating less for the last few weeks, however she has been gaining weight because she is fluid overloaded. Patient has been vomiting, not having any diarrhea. Patient states that she feels very weak. Patient states that since she was discharged in July from the hospital, patient was diagnosed with CHF and had an NSTEMI, since then, she has had issues with fluid overloading. Patient takes Lasix at home, does not know which does. Patient denies shortness of breath. Related Data Home Medications Medication Instructions Recorded Confirmed clonazepam 0.5 mg tablet 0.5 mg PO BID 07/18/21 11/15/21 sertraline 100 mg tablet 200 mg PO DAILY 07/18/21 11/15/21 tolterodine 2 mg capsule,extended 2 mg PO DAILY 07/18/21 11/15/21 release 24 hr magnesium oxide 400 mg (241.3 mg 400 mg PO DAILY 11/15/21 11/15/21 magnesium) tablet pantoprazole 40 mg tablet,delayed 1 tab PO BID 11/15/21 11/15/21 release Previous Rx's Medication Instructions Recorded aspirin 81 mg tablet,delayed 81 mg PO DAILY #90 tabs 07/29/21 release potassium chloride 10 mEq 10 meq PO DAILY #30 caps 08/30/21 capsule,extended release amlodipine 2.5 mg tablet 2.5 mg PO BEDTIME #90 tabs 09/13/21 furosemide 40 mg tablet 40 mg PO DAILY #90 tabs 09/13/21 Allergies Allergy/AdvReac Type Severity Reaction Status Date / Time prochlorperazine Allergy Severe SEIZURE Verified 07/17/21 18:49 adhesive tape [ADHESIVE TAPE] Allergy Intermediate RASH Verified 07/17/21 18:49 latex [LATEX] Allergy Intermediate RASH Verified 07/17/21 18:49 clarithromycin Allergy Mild RASH Verified 07/17/21 18:49 hydrochlorothiazide Allergy Mild RASH Verified 07/17/21 18:49 metoclopramide [From Reglan] AdvReac Severe SEIZURES Verified 07/17/21 18:49 lactose AdvReac Mild Gastrointestinal Verified 07/22/21 09:56 Upset ibuprofen AdvReac Unknown unknown Verified 07/17/21 18:49 BIAXIN Allergy Intermediate RASH Uncoded 05/19/21 13:30 Review of Systems Review of Systems: Constitutional : No Weight loss, No Fever, No Chills, No Night Sweats, complaining of fatigue, generalized malaise ENT/Mouth : No Hearing loss, No Ear Pain, No Nasal Congestion, No Sinus Pain, No Hoarseness, No sore throat, No Rhinorrhea, No Swallowing Difficulty Eyes: No Eye Pain, No Swelling, No Redness, No Foreign Body, No Discharge, No Vision Changes Cardiovascular : No Chest Pain, No SOB, No Dyspnea on Exertion, No Orthopnea, complaining of anasarca Respiratory : No Cough, No Sputum, No Wheezing, No Smoke Exposure, No Dyspnea Gastrointestinal : Complaining of nausea and vomiting No Diarrhea, No Constipation, no hematochezia, no melena, complaining of chronic epigastric pain Genitourinary : no irregular bleeding, No Dysuria, No Urinary Frequency, No Hematuria, No Urinary Incontinence, No Urgency, No Flank Pain, No Urinary Flow Changes, No Hesitancy Musculoskeletal : No joint pain, No Myalgias, No Joint Swelling Skin : No Skin Lesions, No rash Neuro : No Weakness, No Numbness, No Paresthesias, No Loss of Consciousness, No Dizziness, No Headache Psych : No Anxiety/Panic, No Depression, No SI/HI/AH/VH, No Social Issues, Heme/Lymph: No Bruising, No Bleeding,No Lymphadenopathy Endocrine : No Polyuria, No Polydipsia, No Temperature Intolerance [facility] Past Medical History Medical History Anemia Arthritis Atherosclerotic cardiovascular disease Atypical pneumonia CAD (coronary artery disease) Chest pain CHF (congestive heart failure) CKD (chronic kidney disease) Depression Diabetes Essential hypertension HLD (hyperlipidemia) HTN (hypertension) Pancreatic cancer Pleural effusion Precordial chest pain Respiratory failure with hypoxia Surgical History History of History of esophagogastroduodenoscopy (EGD) History of hysteroscopy Hx of cholecystectomy Hx of colonoscopy Hx of eye surgery Family History Family History Father Colon cancer Myocardial infarction Mother Uterine cancer Social History Social History (Updated 09/23/21 @ 10:48 by MAITE Hansen) Household Members: Family Housing: Apartment Do you presently have visiting nurse or other home services: No Alcohol intake: never Patient Tobacco Use Status: Never used Tobacco Second Hand Smoke Exposure: No Advance Directives: Yes Advance Directives Information Provided: Yes Advance Directives on File: No Advance Directives Date on File: 05/14/20 service: No Current occupational status: disabled Sexual orientation: Straight/Heterosexual Gender identity: Female Physical Exam ED Vital Signs: Vital Signs - 24 hr 11/15/21 11:33 Temperature 98.2 F Pulse Rate 84 Respiratory Rate 18 Blood Pressure 104/58 L Pulse Oximetry 100 Oxygen Delivery Method Room Air BMI result Body Mass Index 21.4 Const Other: Appearance: Alert. Oriented X3. No acute distress. Weak Eyes: Pupils equal, round and reactive to light. ENT: Pharynx normal. Neck: Normal inspection. Neck supple. No lymph nodes noted. No crepitus CVS: Normal heart rate and rhythm. Pulses normal. Normal S1 and S2 Respiratory: No respiratory distress. Breath sounds normal. No Wheezing. No rales Abdomen: Soft and nontender. No rigidity. No distention. Skin: Skin warm and dry. Diffusely pale Extremities: +3 pitting edema in upper and lower extremities Neuro: Oriented X 3. No motor deficit. No sensory deficit. Moving all extremities. No slurred speech. CN 2 through 12 grossly intact Psych: calm, cooperative, normal affect Course Course Course Narrative: Some of patient's labs are still pending. Patient has low potassium, patient getting IV piggybacks of potassium Discussed the patient with nurse practitioner Jose. Patient is being admitted for failure to thrive, chronic abdominal pain, hypokalemia, anasarca and hypocalcemia. Medical Decision Making Lab Data Result diagrams: 11/15/21 13:17 11/15/21 13:17 Labs: Lab Results 11/15/21 11/15/21 11/15/21 Range/Units 13:17 13:17 13:17 WBC 5.7 (4.8-10.8) X10*3/uL RBC 3.59 L (4.20-5.50) X10*6/uL Hgb 9.7 L (12.0-16.0) g/dl Hct 28.8 L (37.0-47.0) % MCV 80.2 (80.0-98.0) fL MCH 27.0 (27.0-33.0) pg MCHC 33.7 (31.0-35.0) g/dl RDW 14.7 (11.0-16.0) % Plt Count 226 (160-400) X10*3/uL MPV 11.5 (9.4-12.3) fL Immature Gran % (Auto) 0.4 (0.0-0.4) % Neut % (Auto) 72.4 (45-73) % Lymph % (Auto) 17.8 L (20-40) % [place] % (Auto) 6.5 (2-11) % Eos % (Auto) 2.5 (0-4) % Baso % (Auto) 0.4 (0-2) % Lymph # (Auto) 1.0 L (1.2-4.9) X10*3/uL [place] # (Auto) 0.4 (0.1-1.2) X10*3/uL Eos # (Auto) 0.1 (0.0-0.4) X10*3/uL Baso # (Auto) 0.0 (0.0-0.2) X10*3/uL Abs Immat Gran (auto) 0.02 (0.00-0.03) X10*3/uL Absolute Neuts (auto) 4.1 (2.0-8.3) x10*3/uL Absolute Nucleated RBC 0.000 (0.0-0.012) X10*3/uL Nucleated RBC % (auto) 0.0 (0.0-0.2) /100WBC Sodium 133 L (135-145) mmol/L Potassium 3.0 L (3.3-5.1) mmol/L Chloride 95 L (96-108) mmol/L Carbon Dioxide 23 (22-29) mmol/L Anion Gap 18 (12-20) BUN 21 H (9-16) mg/dL Creatinine 2.29 H (0.5-1.4) mg/dL Estim Creat Clear Calc 14.3 Estimated GFR 21 Random Glucose 206 H (60-115) mg/dL Calcium 7.6 L (8.4-10.2) mg/dL Total Bilirubin 0.9 (0.0-1.0) mg/dL Direct Bilirubin 0.5 (0.0-0.5) mg/dL AST 99 H (5-31) U/L ALT 78 H (0-31) U/L Alkaline Phosphatase 169 H (39-117) U/L Troponin I High Sens (<3.5-17.0) ng/L B-Natriuretic Peptide (<100) pg/mL Total Protein 5.9 L (6.5-8.0) g/dL Albumin 2.5 L (3.5-5.0) g/dL Lipase < 4 L (8-78) U/L COVID-19 ([facility]) Negative (Negative) COVID-19 Clin Com See Note 11/15/21 Range/Units 13:17 WBC (4.8-10.8) X10*3/uL RBC (4.20-5.50) X10*6/uL Hgb (12.0-16.0) g/dl Hct (37.0-47.0) % MCV (80.0-98.0) fL MCH (27.0-33.0) pg MCHC (31.0-35.0) g/dl RDW (11.0-16.0) % Plt Count (160-400) X10*3/uL MPV (9.4-12.3) fL Immature Gran % (Auto) (0.0-0.4) % Neut % (Auto) (45-73) % Lymph % (Auto) (20-40) % [place] % (Auto) (2-11) % Eos % (Auto) (0-4) % Baso % (Auto) (0-2) % Lymph # (Auto) (1.2-4.9) X10*3/uL [place] # (Auto) (0.1-1.2) X10*3/uL Eos # (Auto) (0.0-0.4) X10*3/uL Baso # (Auto) (0.0-0.2) X10*3/uL Abs Immat Gran (auto) (0.00-0.03) X10*3/uL Absolute Neuts (auto) (2.0-8.3) x10*3/uL Absolute Nucleated RBC (0.0-0.012) X10*3/uL Nucleated RBC % (auto) (0.0-0.2) /100WBC Sodium (135-145) mmol/L Potassium (3.3-5.1) mmol/L Chloride (96-108) mmol/L Carbon Dioxide (22-29) mmol/L Anion Gap (12-20) BUN (9-16) mg/dL Creatinine (0.5-1.4) mg/dL Estim Creat Clear Calc Estimated GFR Random Glucose (60-115) mg/dL Calcium (8.4-10.2) mg/dL Total Bilirubin (0.0-1.0) mg/dL Direct Bilirubin (0.0-0.5) mg/dL AST (5-31) U/L ALT (0-31) U/L Alkaline Phosphatase (39-117) U/L Troponin I High Sens 90.9 H* D (<3.5-17.0) ng/L B-Natriuretic Peptide 783 H (<100) pg/mL Total Protein (6.5-8.0) g/dL Albumin (3.5-5.0) g/dL Lipase (8-78) U/L COVID-19 ([facility]) (Negative) COVID-19 Clin Com Critical Care Time Critical Care Time Critical Care Time: Yes Total Critical Care Time: 60 Attestation: I have personally provided critical care time. Time includes review of lab data, radiology results, discussion with consultants, and monitoring for potential decompensation. Intervention performed as documented. Discharge Plan Discharge Clinical Impression: Adult failure to thrive, Chronic epigastric pain, Acute hypokalemia, Anasarca Patient Disposition: Admitted As Inpatient Prescriptions: No Action amlodipine 2.5 mg tablet 2.5 mg PO BEDTIME Qty: 90 1RF furosemide 40 mg tablet 40 mg PO DAILY Qty: 90 1RF Protocol: Hold for SBP< HOLD for SBP < : 90 tolterodine 2 mg capsule,extended release 24hr 2 mg PO DAILY clonazepam 0.5 mg tablet 0.5 mg PO BID sertraline 100 mg tablet 200 mg PO DAILY aspirin 81 mg tablet,delayed release (DR/EC) 81 mg PO DAILY Qty: 90 3RF potassium chloride 10 mEq Capsule, Extended Release 10 meq PO DAILY Qty: 30 1RF pantoprazole 40 mg tablet,delayed release (DR/EC) 1 tab PO BID magnesium oxide 400 mg (241.3 mg magnesium) tablet 400 mg PO DAILY
[2021-11-15 15:07] LABS: Alanine Aminotransferase 78 U/L (0-31); Albumin Level 2.5 g/dL (3.5-5.0); Alkaline Phosphatase 169 U/L (39-117); Aspartate Amino Transferase 99 U/L (5-31); Bilirubin Direct 0.5 mg/dL (0.0-0.5); Bilirubin Total 0.9 mg/dL (0.0-1.0); Lipase < 4 U/L (8-78); Total Protein 5.9 g/dL (6.5-8.0)
[2021-11-15 15:18] LABS: B Type Natriuretic Peptide 783 pg/mL (<100); Troponin-I High Sensitivity 90.9 ng/L (<3.5-17.0)
--- NOTE | 2021-11-15 15:59 | PHA.MEDREC ---
Pharmacy Consult ? Medication Reconciliation Pharmacy has completed the medication reconciliation.
[2021-11-15] MEDS: Morphine Sulfate 2 MG/ML CARTRIDGE IVPUSH (16:26)
[2021-11-15] MEDS: Potassium Chloride/H20 10 MEQ/100 ML PIGGYBACK 100 MEQ IV ×4 (16:27→21:12)
--- NOTE | 2021-11-15 17:07 | P.HPHOSP_ITS ---
History of Present Illness Date of Service: 11/15/21 Attending physician on admission: Cruz Verma Chief Complaint: fluid overload, weakness, failure to thrive 81 year old female with pancreatic cancer with CA-19 level 1943, non insulin dependent type 2 diabetes, HFrEF, ischemic cardiomyopathy, CAD w h/o NSTEMI, htn, hld, gerd, and depression presented to the ED today with her son due to increased edema in the arms, legs, and shortness of breath ongoing for several days. States over the last two months has been declining with generalized weakness, anorexia, nausea, and chronic epigastric pain r/t pancreatic cancer. She had started gemcitabine/abraxane in 07/10 for chemotherapy but developed GI symptoms and was hospitalized during which she developed CHF and NSTEMI. She had been recommended for hospice due to progression of her cancer but patient was never started on hospice and wishes to be full code. She has had several falls in the last few montsh that have prevented her from making it to appointments and denies any head injury or any falls in the last few weeks. CXR in ed was negative. No leukocytosis, mild normocytic anemia. Renal function stable with creat 2.29, bun 21. Glucose 206. K 3.0. Na 133. Calcium 7.6. AST 99, ALT 78, Alk phos 169, BNP 783, total protein 5.9, albumin 2.5. Trop-90.9. EKG NSR no st/t wave abnormality. Review of Systems Review of Systems: General: +generalized weakness, +anorexia. No fevers, malaise, unintentional weight loss Cardiovascular: +leg, arm edema. No chest pain, palpitations Respiratory: +sob. No wheezing, cough GI: +nausea, +diarrhea. No abdominal pain, vomiting, constipation, melena, hematochezia : No dysuria, hematuria, increased urinary frequency Neuro: No headaches, paresthesias Skin: No rashes or lesions [facility] Medical History Anemia Arthritis Atherosclerotic cardiovascular disease Atypical pneumonia CAD (coronary artery disease) Chest pain CHF (congestive heart failure) CKD (chronic kidney disease) Depression Diabetes Essential hypertension HLD (hyperlipidemia) HTN (hypertension) Pancreatic cancer Pleural effusion Precordial chest pain Respiratory failure with hypoxia Family History Father Colon cancer Myocardial infarction Mother Uterine cancer Surgical History History of History of esophagogastroduodenoscopy (EGD) History of hysteroscopy Hx of cholecystectomy Hx of colonoscopy Hx of eye surgery Social History (Updated 09/23/21 @ 10:48 by MAITE Hansen) Household Members: Family Housing: Apartment Do you presently have visiting nurse or other home services: No Alcohol intake: unknown Patient Tobacco Use Status: Never used Tobacco Second Hand Smoke Exposure: No Advance Directives Date on File: 05/14/20 service: No Current occupational status: disabled Sexual orientation: Straight/Heterosexual Gender identity: Female Meds Allergies Allergy/AdvReac Type Severity Reaction Status Date / Time prochlorperazine Allergy Severe SEIZURE Verified 07/17/21 18:49 adhesive tape [ADHESIVE TAPE] Allergy Intermediate RASH Verified 07/17/21 18:49 latex [LATEX] Allergy Intermediate RASH Verified 07/17/21 18:49 clarithromycin Allergy Mild RASH Verified 07/17/21 18:49 hydrochlorothiazide Allergy Mild RASH Verified 07/17/21 18:49 metoclopramide [From Reglan] AdvReac Severe SEIZURES Verified 07/17/21 18:49 lactose AdvReac Mild Gastrointestinal Verified 07/22/21 09:56 Upset ibuprofen AdvReac Unknown unknown Verified 07/17/21 18:49 BIAXIN Allergy Intermediate RASH Uncoded 05/19/21 13:30 Active Medications: Current Medications Acetaminophen (Acetaminophen 325 Mg Tablet) 650 mg PO Q6H PRN PRN Reason: Pain, Mild (Pain Scale 1-3) Heparin Sodium (Porcine) (Heparin Sodium,Porcine 5,000 Unit/Ml Vial) 5,000 unit SUBCUT Q12H DAVID Potassium Chloride (Potassium Chloride/H20) 10 meq in 100 mls @ 100 mls/hr IV Q1H DAVID Stop: 11/15/21 18:59 Last Admin: 11/15/21 16:27 Dose: 100 mls/hr Albumin Human (Kedbumin 25 %) 100 mls @ 100 mls/hr IV Q1H DAVID Stop: 11/15/21 19:14 Ondansetron HCl (Ondansetron Hcl 4 Mg/2 Ml Vial) 4 mg IVPUSH Q8H PRN PRN Reason: Nausea and Vomiting Pharmacy Consult (Consult Rx Perform Med Rec) 1 each MISCELLANE ONCE PRN PRN Reason: Consult order Sodium Chloride (0.9 % Sodium Chloride Flush 3 Ml Syringe) 3 ml IVFLUSH QSHIFT [facility] Home Medications Medication Instructions Recorded Confirmed Last Taken Type clonazepam 0.5 mg tablet 0.5 mg PO BID 07/18/21 11/15/21 11/14/21 History sertraline 100 mg tablet 200 mg PO DAILY 07/18/21 11/15/21 11/14/21 History tolterodine 2 mg capsule,extended 2 mg PO DAILY 07/18/21 11/15/21 11/14/21 History release 24 hr magnesium oxide 400 mg (241.3 mg 400 mg PO DAILY 11/15/21 11/15/21 11/14/21 History magnesium) tablet pantoprazole 40 mg tablet,delayed 1 tab PO BID 11/15/21 11/15/21 11/15/21 History release Physical Exam Vital Signs and Narrative: Vital Signs: Last Vital Signs Temp 98.2 F 11/15/21 11:33 Pulse 84 11/15/21 11:33 Resp 18 11/15/21 11:33 BP 104/58 L 11/15/21 11:33 Pulse Ox 100 11/15/21 11:33 O2 Del Method 11/15/21 11:33 BMI result Body Mass Index 21.4 Constitutional - Awake and Alert, No apparent distress Eyes - PERRLA, EOMI Cardiovascular - S1S2, RRR, 3+ edema BLE, 1+ edema BUE Chest- chemo port in place Respiratory - scattered crackles bilaterally. Normal lung expansion, Normal respiratory effort, No respiratory distress Gastrointestinal - NT / ND; +BS; No rebound or guarding Extremities - no calf tenderness bilaterally Skin - Warm/Dry Neurological - Alert & oriented x3, CN II -XII in tact. 3/5 strength BUE and BLE Psychological - Appropriate affect Results Labs CBC and Chem 7: 11/16/21 09:14 11/16/21 09:14 Labs: Laboratory Results - last 24 hr 11/15/21 11/15/21 11/15/21 13:17 13:17 13:17 MCV 80.2 MCH 27.0 MCHC 33.7 RDW 14.7 Plt Count 226 MPV 11.5 Immature Gran % (Auto) 0.4 Neut % (Auto) 72.4 Lymph % (Auto) 17.8 L [place] % (Auto) 6.5 Eos % (Auto) 2.5 Baso % (Auto) 0.4 Lymph # (Auto) 1.0 L [place] # (Auto) 0.4 Eos # (Auto) 0.1 Baso # (Auto) 0.0 Abs Immat Gran (auto) 0.02 Absolute Neuts (auto) 4.1 Absolute Nucleated RBC 0.000 Nucleated RBC % (auto) 0.0 Anion Gap 18 Estim Creat Clear Calc 14.3 Estimated GFR 21 Random Glucose 206 H Calcium 7.6 L Total Bilirubin 0.9 Direct Bilirubin 0.5 AST 99 H ALT 78 H Alkaline Phosphatase 169 H B-Natriuretic Peptide Total Protein 5.9 L Albumin 2.5 L Lipase < 4 L COVID-19 ([facility]) Negative COVID-19 Clin Com See Note 11/15/21 13:17 MCV MCH MCHC RDW Plt Count MPV Immature Gran % (Auto) Neut % (Auto) Lymph % (Auto) [place] % (Auto) Eos % (Auto) Baso % (Auto) Lymph # (Auto) [place] # (Auto) Eos # (Auto) Baso # (Auto) Abs Immat Gran (auto) Absolute Neuts (auto) Absolute Nucleated RBC Nucleated RBC % (auto) Anion Gap Estim Creat Clear Calc Estimated GFR Random Glucose Calcium Total Bilirubin Direct Bilirubin AST ALT Alkaline Phosphatase B-Natriuretic Peptide 783 H Total Protein Albumin Lipase COVID-19 ([facility]) COVID-19 Clin Com Imaging Radiologist's Impressions: Impressions Chest X-Ray 11/15/21 14:45 IMPRESSION: No acute cardiopulmonary findings. Assessment and Plan (1) Anasarca: Status: Acute (2) Adult failure to thrive: Status: Acute (3) Acute hypokalemia: Status: Acute Plan 81 year old female with pancreatic cancer with CA-19 level 1943, non insulin dependent type 2 diabetes, HFrEF, ischemic cardiomyopathy, CAD w h/o NSTEMI, htn, hld, gerd, and depression admitted for anasarca and failure to thrive 1-anasarca- likely secondary to low albumin from poor nutrition -IV albumin to induce diuresis -IV lasix once potassium repleted 2-Hypokalemia -Continue IV potassium -Recheck K in 4 hours 3-failure to thrive- secondary to malignancy -It appears pt was recommended for hospice by oncology. Case management consult placed -Nutrition consult -PT consult 4-pancreatic cancer- had been recommended for hospice but was never placed on hospice -Chemo port in place. oncology consulted 5-Noninsulin dependent type 2 diabetes -Uncontrolled -POC -Diabetic diet -Humalog ssi 6-HFrEF -Hold lasix d/t hypokalemia -IV albumin to induce diuresis -IV llasix once potassium repleted 7-HTN- stable -continue home meds 8-CAD/HLD- no anginal chest pain -Continue statin/asa 9-CKD stage 4 -Baseline DVT prophylaxis- heparin Full code Pt requires inpt stay of at least 2 midnights due to anasarca with electrolyte abnormality requiring IV colloids and electrolyte repletion with further monitoring. Quality Stroke Does the patient have a stroke diagnosis?: No VTE Prior VTE?: No VTE Risk Level:: Medical - moderate - high VTE Device Contraindication: Treatment Not Indicated VTE Drug Contraindication: N/A - Med Ordered
[2021-11-15 17:31] LABS: Magnesium 1.4 mg/dL (1.6-2.6)
--- NOTE | 2021-11-15 17:31 | PM.EVENT ---
Event Note Date of Service: 11/15/21 Event Note: addendum to H+P by mid-level hospitalist KARLOS Cates Hussein 81yo F with pancreatic adenoCA, s/p 1 round of chemo in June, followed by admission for GI symptoms + NSTEMI, referred to hospice in September by her oncologist Dr Mccormick but pt has no idea what hospice is, presenting with diffuse anasarca + hypoK. CT A/P with ileus + ascites. She affirms she is FULL CODE but does not want chemotherapy. Plan hospice consult, admission for control of symptoms- give albumin followed by furosemide, replete K, check Mg. NPO. Consider paracentesis for therapeutic effect.
[2021-11-15] MEDS: Heparin Sodium,Porcine 5,000 UNIT/ML VIAL 5000 UNIT SUBCUT (18:11)
[2021-11-15] MEDS: Albumin Human 25 % 100 ML IV ×2 (19:38→21:12)
[2021-11-15] MEDS: Morphine Sulfate 2 MG/ML CARTRIDGE 1 MG IVPUSH (20:30)
[2021-11-15 21:03] VITALS: BP 159/70; PULSE 76; RESP 16; TEMP 36.5; O2SAT 100
[2021-11-15 21:24] LABS: Glucose, Whole Blood 146 mg/dL (60-115)
--- NOTE | 2021-11-15 21:27 | MHC.CM.PN ---
Pt sleeping soundly. Does not respond to name. Will assess for d/c planning when pt wakes. CM to follow for d/c planning.
[2021-11-15 22:29] LABS: Potassium 3.5 mmol/L (3.3-5.1)
[2021-11-15 23:44] VITALS: BP 159/78; PULSE 75; RESP 12; O2SAT 98
[2021-11-15] MEDS: amLODIPine Besylate 2.5 MG TABLET PO (23:58)
[2021-11-15] MEDS: clonazePAM 0.5 MG TABLET PO (23:58)
[2021-11-16] MEDS: Omeprazole 20 MG CAPSULE.DR PO ×2 (06:24→18:41)
[2021-11-16] MEDS: Heparin Sodium,Porcine 5,000 UNIT/ML VIAL 5000 UNIT SUBCUT ×2 (06:24→18:42)
[2021-11-16 07:19] LABS: Glucose, Whole Blood 101 mg/dL (60-115)
--- NOTE | 2021-11-16 08:09 | PC.NURSE ---
family member mini updated on pt status this morning
[2021-11-16 09:11] VITALS: BP 159/78; PULSE 75; O2SAT 98
[2021-11-16 09:21] LABS: Hematocrit 26.9 % (37.0-47.0); Mean Corpuscular HGB Conc 33.5 g/dl (31.0-35.0); Mean Corpuscular Hemoglobin 27.2 pg (27.0-33.0); Mean Corpuscular Volume 81.3 fL (80.0-98.0); Mean Platelet Volume 11.3 fL (9.4-12.3); Platelet Count 184 X10*3/uL (160-400); Red Blood Count 3.31 X10*6/uL (4.20-5.50)
[2021-11-16 09:38] LABS: INTERNATIONAL NORM RATIO 1.1 (0.9-1.1); Prothrombin Time 13.1 SEC (10.0-13.1)
[2021-11-16 09:40] LABS: Partial Thromboplastin Time 31.2 SEC (26.0-36.4)
[2021-11-16 09:54] LABS: Anion Gap 18 (12-20); Blood Urea Nitrogen 20 mg/dL (9-16); Calcium 8.4 mg/dL (8.4-10.2); Carbon Dioxide 25 mmol/L (22-29); Chloride 97 mmol/L (96-108); Creatinine Clr Calc Pharmacy 14.9; Estimated Glomerular Filt Rate 22; Glucose Random 136 mg/dL (60-115); Magnesium 1.4 mg/dL (1.6-2.6); Potassium 3.2 mmol/L (3.3-5.1); Sodium 137 mmol/L (135-145)
[2021-11-16] MEDS: Furosemide 40 MG/4 ML VIAL IVPUSH ×2 (11:13→18:41)
[2021-11-16] MEDS: Sertraline HCL 100 MG TABLET 200 MG PO (11:14)
[2021-11-16] MEDS: clonazePAM 0.5 MG TABLET PO ×2 (11:14→22:46)
[2021-11-16] MEDS: Magnesium Oxide 400 MG TABLET PO (11:14)
[2021-11-16] MEDS: Aspirin Enteric Coated 81 MG TABLET.DR PO (11:14)
[2021-11-16] MEDS: Potassium Chloride/H20 10 MEQ/100 ML PIGGYBACK 100 MEQ IV ×4 (11:20→17:30)
[2021-11-16] MEDS: Potassium Chloride ER 20 MEQ TAB.ER.PRT PO (11:43)
--- NOTE | 2021-11-16 12:23 | HO.RADPN ---
RADIOLOGY Narrative Narrative: Right paracentesis using 5 fr catheter. L clear yellow fluid removed. Specimen sent for gs, culture and cytology. Fluid is loculated with multiple septations.
--- NOTE | 2021-11-16 12:29 | MHC.CM.PN ---
with interpertator met with pt and her son pt had no servcis prior to admiission pt lives with radha medellin is requesting a hospice imformational referral made to [facility] after getting approval from [facility]
[2021-11-16] MEDS: Lidocaine HCl 1 % MPF 5 ML VIAL SUBCUT (12:42)
--- NOTE | 2021-11-16 13:47 | MHC.CLN ---
NUTRITION CONSULT FOR FAILURE TO THRIVE, LOW PROTEIN. CURRENTLY NPO FOR PARACENTESIS. PATIENT WITH DX PANCREATIC CANCER, ANASARCA, ADULT FAILURE TO THRIVE, ACUTE HYPOKALEMIA. IF ABLE TO TOLERATE REGULAR DIET, RECOMMEND LIBERALIZED DIET. REGULAR DIET TO PROMOTE PO INTAKE AND PROVIDE GREATER CHOICES. ADD ENSURE TID TO PROVIDE ADDITIONAL 1050 KCALS, 60 G PROTEIN. PATIENT WITH HX DM, CKD STAGE 4. FOLLOW FOR INTAKE AND LABS.
[2021-11-16 13:56] LABS: Glucose, Whole Blood 124 mg/dL (60-115)
[2021-11-16] MEDS: Magnesium Sulfate/H2O 2 GM/50 ML PIGGYBACK IV ×2 (14:13→17:30)
[2021-11-16 14:29] VITALS: BP 168/77; PULSE 68; RESP 11; TEMP 36.4
--- NOTE | 2021-11-16 14:44 | P.PNIM_ITS ---
Subjective Subjective Date of Service: 11/16/21 Interval History: This history was taken in Azeri from the patient. Abd distended Leg swelling improved Pain controlled No dyspnea Review of Systems Review of Systems: Yes all other systems are reviewed and are negative Physical Exam Vital Signs: Vital Signs: Last Vital Signs Temp 97.6 F 11/16/21 14:29 Pulse 68 11/16/21 14:29 Resp 11 L 11/16/21 14:29 BP 168/77 H 11/16/21 14:29 Pulse Ox 98 11/16/21 09:11 O2 Del Method 11/16/21 14:29 O2 Flow Rate 100 11/16/21 14:29 BMI result Body Mass Index 21.4 Gen: chronically ill-appearing HEENT: sclera anicteric, moist mucus membranes Neck: supple Lungs: clear to auscultation bilaterally Heart: regular rate and rhythm, no murmurs Abd: distended, hypoactive bowel sounds Ext: 1+ edema Skin: warm/well-perfused Neuro: alert and oriented x3, no focal findings Psych: appropriate affect Objective Data Active Medications Acetaminophen (Acetaminophen 325 Mg Tablet) 650 mg PO Q6H PRN PRN Reason: Pain, Mild (Pain Scale 1-3) Amlodipine Besylate (Amlodipine Besylate 2.5 Mg Tablet) 2.5 mg PO BEDTIME [facility]; Protocol Last Admin: 11/15/21 23:58 Dose: 2.5 mg Documented By: JUWAN Aspirin (Aspirin Enteric Coated 81 Mg Tablet.) 81 mg PO DAILY [facility] Last Admin: 11/16/21 11:14 Dose: 81 mg Documented By: KAMINI Clonazepam (Clonazepam 0.5 Mg Tablet) 0.5 mg PO BID [facility] Last Admin: 11/16/21 11:14 Dose: 0.5 mg Documented By: KAMINI Dextrose (Dextrose 50 % 25 Gm/50 Ml Syringe) 25 gm IVPUSH Q15M PRN; Protocol PRN Reason: per Hypoglycemia Standing Ord. Furosemide (Furosemide 40 Mg/4 Ml Vial) 40 mg IVPUSH BID@0900,1800 [facility]; Protocol Last Admin: 11/16/21 11:13 Dose: 40 mg Documented By: KAMINI Glucose (Glucose Gel 15 Gm Gel..Gram.) 15 gm PO Q15M PRN; Protocol PRN Reason: per Hypoglycemia Standing Ord. Heparin Sodium (Porcine) (Heparin Sodium,Porcine 5,000 Unit/Ml Vial) 5,000 unit SUBCUT Q12H [facility] Last Admin: 11/16/21 06:24 Dose: 5,000 unit Documented By: JUWAN Magnesium Sulfate (Magnesium Sulfate/H2o) 2 gm in 50 mls @ 25 mls/hr IV ONCE ONE Stop: 11/16/21 17:59 Insulin Human Lispro (Insulin Lispro 100 Unit/Ml 3 Ml Vial) 0 unit SUBCUT QIDACHS [facility]; Protocol Last Admin: 11/16/21 13:54 Dose: Not Given Documented By: PAT Non-Admin Reason: No Insulin Coverage Magnesium Oxide (Magnesium Oxide 400 Mg Tablet) 400 mg PO DAILY [facility] Last Admin: 11/16/21 11:14 Dose: 400 mg Documented By: KAMINI Omeprazole (Omeprazole 20 Mg Capsule.Dr) 20 mg PO BID@0630,1630 [facility] Last Admin: 11/16/21 06:24 Dose: 20 mg Documented By: JUWAN Ondansetron HCl (Ondansetron Hcl 4 Mg/2 Ml Vial) 4 mg IVPUSH Q8H PRN PRN Reason: Nausea and Vomiting Pharmacy Consult (Consult Rx Perform Med Rec) 1 each MISCELLANE ONCE PRN PRN Reason: Consult order Potassium Chloride (Potassium Chloride Er 10 Meq Capsule.Er) 10 meq PO DAILY [facility] Last Admin: 11/16/21 11:14 Dose: 10 meq Documented By: KAMINI Potassium Chloride (Potassium Chloride Er 20 Meq Tab.Er.Prt) 20 meq PO DAILY [facility] Last Admin: 11/16/21 11:43 Dose: 20 meq Documented By: KAMINI Sertraline HCl (Sertraline Hcl 100 Mg Tablet) 200 mg PO DAILY [facility] Last Admin: 11/16/21 11:14 Dose: 200 mg Documented By: KAMNII Sodium Chloride (0.9 % Sodium Chloride Flush 3 Ml Syringe) 3 ml IVFLUSH QSHIFT [facility] Last Admin: 11/16/21 11:41 Dose: Not Given Documented By: KAMINI Non-Admin Reason: IV Running Tolterodine Tartrate (Tolterodine Tartrate La 2 Mg Cap.Er.24h) 2 mg PO DAILY [facility] Last Admin: 11/16/21 11:44 Dose: Not Given Documented By: KAMINI Non-Admin Reason: Medication Discontinued Labs CBC & Chem 7: 11/16/21 09:14 11/16/21 09:14 Labs: Laboratory Results - last 24 hr 11/15/21 11/15/21 11/15/21 13:17 13:17 21:00 MCV MCH MCHC RDW Plt Count MPV Absolute Nucleated RBC Nucleated RBC % (auto) PT INR APTT Anion Gap Estim Creat Clear Calc Estimated GFR POC Glucose 146 H Random Glucose Lactic Acid Calcium Magnesium 1.4 L* Total Bilirubin 0.9 Direct Bilirubin 0.5 AST 99 H ALT 78 H Alkaline Phosphatase 169 H B-Natriuretic Peptide 783 H Total Protein 5.9 L Albumin 2.5 L Lipase < 4 L 11/16/21 11/16/21 11/16/21 07:03 09:14 09:14 MCV 81.3 MCH 27.2 MCHC 33.5 RDW 15.0 Plt Count 184 MPV 11.3 Absolute Nucleated RBC 0.000 Nucleated RBC % (auto) 0.0 PT 13.1 INR 1.1 APTT 31.2 Anion Gap Estim Creat Clear Calc Estimated GFR POC Glucose 101 Random Glucose Lactic Acid Calcium Magnesium Total Bilirubin Direct Bilirubin AST ALT Alkaline Phosphatase B-Natriuretic Peptide Total Protein Albumin Lipase 11/16/21 11/16/21 11/16/21 09:14 09:14 13:45 MCV MCH MCHC RDW Plt Count MPV Absolute Nucleated RBC Nucleated RBC % (auto) PT INR APTT Anion Gap 18 Estim Creat Clear Calc 14.9 Estimated GFR 22 POC Glucose 124 H Random Glucose 136 H Lactic Acid 1.0 Calcium 8.4 D Magnesium 1.4 L* Total Bilirubin Direct Bilirubin AST ALT Alkaline Phosphatase B-Natriuretic Peptide Total Protein Albumin Lipase Assessment and Plan (1) Acute hypokalemia: Status: Acute (2) Anasarca: Status: Acute Plan hospital d#2 81yo F with pancreatic CA s/p 1 round of chemo in June 2021, HFrEF/ischemic CM, CAD, HTN, HLD, GERD, depression admitted for hypoK/hypoMg/ascites/ileus/FTT # anasarca # ascites - therapeutic paracentesis, IV furosemide. albumin given yesterday # hypoK # hypoMg - replete IV + PO, recheck in AM # pancreatic CA # FTT - hospice consultation # ileus - NPO, advance as tolerated # DM2, A1c 8.26 July 2021 - correction-dose lispro # HTN - amlodipine # ischemic CM # CAD - continue ASA # GERD - continue PPI # mood disorder - continue clonazepam, sertraline # depression - continue sertraline # VTE ppx: UFH In my clinical judgment, the patient requires continued hospitalization for the following reasons: IV electrlyte repletion, NPO Quality Stroke Does the patient have a stroke diagnosis?: No VTE Prior VTE?: No VTE Risk Level:: Medical - moderate - high VTE Device Contraindication: Treatment Not Indicated VTE Drug Contraindication: N/A - Med Ordered
[2021-11-16 18:14] VITALS: BP 142/75; PULSE 66; RESP 20; TEMP 36.7; O2SAT 96
[2021-11-16 18:18] LABS: Glucose, Whole Blood 109 mg/dL (60-115)
[2021-11-16 21:29] LABS: Glucose, Whole Blood 103 mg/dL (60-115)
[2021-11-16] MEDS: amLODIPine Besylate 2.5 MG TABLET PO (22:46)
[2021-11-16 23:13] VITALS: BP 133/70; PULSE 70; RESP 20; TEMP 36.6; O2SAT 99
[2021-11-17] MEDS: 0.9 % Sodium Chloride Flush 3 ML SYRINGE IVFLUSH ×3 (00:19→20:08)
[2021-11-17] MEDS: Heparin Sodium,Porcine 5,000 UNIT/ML VIAL 5000 UNIT SUBCUT ×2 (05:07→17:43)
[2021-11-17] MEDS: Omeprazole 20 MG CAPSULE.DR PO ×2 (05:09→17:41)
[2021-11-17 07:22] LABS: Glucose, Whole Blood 89 mg/dL (60-115)
[2021-11-17 07:44] VITALS: BP 119/64; PULSE 75; RESP 16; TEMP 36.2; O2SAT 99
[2021-11-17 08:32] LABS: Hematocrit 28.1 % (37.0-47.0); Hemoglobin 9.5 g/dl (12.0-16.0); Mean Corpuscular HGB Conc 33.8 g/dl (31.0-35.0); Mean Corpuscular Hemoglobin 27.1 pg (27.0-33.0); Mean Corpuscular Volume 80.3 fL (80.0-98.0); Mean Platelet Volume 11.5 fL (9.4-12.3); Platelet Count 236 X10*3/uL (160-400); Red Cell Distribution Width 15.4 % (11.0-16.0); White Blood Count 6.1 X10*3/uL (4.8-10.8)
[2021-11-17] MEDS: Furosemide 40 MG/4 ML VIAL IVPUSH (10:03)
[2021-11-17 10:07] LABS: Anion Gap 21 (12-20); Blood Urea Nitrogen 20 mg/dL (9-16); Carbon Dioxide 24 mmol/L (22-29); Chloride 98 mmol/L (96-108); Estimated Glomerular Filt Rate 23; Glucose Random 91 mg/dL (60-115); Magnesium 1.7 mg/dL (1.6-2.6); Potassium 3.9 mmol/L (3.3-5.1); Sodium 139 mmol/L (135-145)
--- NOTE | 2021-11-17 10:21 | P.PNIM_ITS ---
Subjective Subjective Date of Service: 11/17/21 Interval History: This history was taken in Frisian from the patient. Paracentesis: 500 mL fluid removed Edema improved Pt passing gas; hungry and wants to try to eat Review of Systems Review of Systems: Yes all other systems are reviewed and are negative Physical Exam Vital Signs: Vital Signs: Last Vital Signs Temp 97.2 F 11/17/21 07:44 Pulse 75 11/17/21 07:44 Resp 16 11/17/21 07:44 BP 119/64 11/17/21 07:44 Pulse Ox 99 11/17/21 07:44 O2 Del Method 11/17/21 07:44 O2 Flow Rate 100 11/16/21 14:29 BMI result Body Mass Index 21.4 Gen: chronically ill-appearing HEENT: sclera anicteric, moist mucus membranes Neck: supple Lungs: clear to auscultation bilaterally Heart: regular rate and rhythm, no murmurs Abd: soft, bowel sounds present, paracentesis site C/D/I Ext: no edema Skin: warm/well-perfused Neuro: alert and oriented x3, no focal findings Psych: appropriate affect Objective Data Active Medications Acetaminophen (Acetaminophen 325 Mg Tablet) 650 mg PO Q6H PRN PRN Reason: Pain, Mild (Pain Scale 1-3) Amlodipine Besylate (Amlodipine Besylate 2.5 Mg Tablet) 2.5 mg PO BEDTIME [facility]; Protocol Last Admin: 11/16/21 22:46 Dose: 2.5 mg Documented By: RENEE Aspirin (Aspirin Enteric Coated 81 Mg Tablet.) 81 mg PO DAILY [facility] Last Admin: 11/16/21 11:14 Dose: 81 mg Documented By: KAMINI Clonazepam (Clonazepam 0.5 Mg Tablet) 0.5 mg PO BID [facility] Last Admin: 11/16/21 22:46 Dose: 0.5 mg Documented By: RENEE Dextrose (Dextrose 50 % 25 Gm/50 Ml Syringe) 25 gm IVPUSH Q15M PRN; Protocol PRN Reason: per Hypoglycemia Standing Ord. Furosemide (Furosemide 40 Mg/4 Ml Vial) 40 mg IVPUSH BID@0900,1800 [facility]; Protocol Last Admin: 11/17/21 10:03 Dose: 40 mg Documented By: VARGAS Glucose (Glucose Gel 15 Gm Gel..Gram.) 15 gm PO Q15M PRN; Protocol PRN Reason: per Hypoglycemia Standing Ord. Heparin Sodium (Porcine) (Heparin Sodium,Porcine 5,000 Unit/Ml Vial) 5,000 unit SUBCUT Q12H [facility] Last Admin: 11/17/21 05:07 Dose: 5,000 unit Documented By: TOMAS Insulin Human Lispro (Insulin Lispro 100 Unit/Ml 3 Ml Vial) 0 unit SUBCUT QIDACHS [facility]; Protocol Last Admin: 11/17/21 07:35 Dose: Not Given Documented By: VARGAS Non-Admin Reason: No Insulin Coverage Magnesium Oxide (Magnesium Oxide 400 Mg Tablet) 400 mg PO DAILY [facility] Last Admin: 11/16/21 11:14 Dose: 400 mg Documented By: KAMINI Omeprazole (Omeprazole 20 Mg Capsule.Dr) 20 mg PO BID@0630,1630 [facility] Last Admin: 11/17/21 05:09 Dose: 20 mg Documented By: TOMAS Ondansetron HCl (Ondansetron Hcl 4 Mg/2 Ml Vial) 4 mg IVPUSH Q8H PRN PRN Reason: Nausea and Vomiting Pharmacy Consult (Consult Rx Perform Med Rec) 1 each MISCELLANE ONCE PRN PRN Reason: Consult order Potassium Chloride (Potassium Chloride Er 10 Meq Capsule.Er) 10 meq PO DAILY [facility] Last Admin: 11/16/21 11:14 Dose: 10 meq Documented By: KAMINI Potassium Chloride (Potassium Chloride Er 20 Meq Tab.Er.Prt) 20 meq PO DAILY [facility] Last Admin: 11/16/21 11:43 Dose: 20 meq Documented By: KAMINI Sertraline HCl (Sertraline Hcl 100 Mg Tablet) 200 mg PO DAILY [facility] Last Admin: 11/16/21 11:14 Dose: 200 mg Documented By: KAMINI Sodium Chloride (0.9 % Sodium Chloride Flush 3 Ml Syringe) 3 ml IVFLUSH QSHIFT [facility] Last Admin: 11/17/21 09:15 Dose: Not Given Documented By: RAMESH Non-Admin Reason: IV Running Tolterodine Tartrate (Tolterodine Tartrate La 2 Mg Cap.Er.24h) 2 mg PO DAILY [facility] Last Admin: 11/16/21 11:44 Dose: Not Given Documented By: KAMINI Non-Admin Reason: Medication Discontinued Labs CBC & Chem 7: 11/17/21 08:22 11/17/21 08:22 Labs: Laboratory Results - last 24 hr 11/16/21 11/16/21 11/16/21 13:45 18:15 21:25 MCV MCH MCHC RDW Plt Count MPV Absolute Nucleated RBC Nucleated RBC % (auto) Anion Gap Estim Creat Clear Calc Estimated GFR POC Glucose 124 H 109 103 Random Glucose Calcium Magnesium 11/17/21 11/17/21 11/17/21 07:14 08:22 08:22 MCV 80.3 MCH 27.1 MCHC 33.8 RDW 15.4 Plt Count 236 D MPV 11.5 Absolute Nucleated RBC 0.000 Nucleated RBC % (auto) 0.0 Anion Gap 21 H Estim Creat Clear Calc 16.0 Estimated GFR 23 POC Glucose 89 Random Glucose 91 Calcium 8.0 L Magnesium 1.7 Microbiology Microbiology Results: Microbiology 11/16/21 12:05 Gram Stain - Final Ascites Fluid Routine Culture - Preliminary No growth to date. Anaerobic Culture - Preliminary No growth to date. Assessment and Plan (1) Acute hypokalemia: Status: Acute (2) Anasarca: Status: Acute Plan hospital d#3 81yo F with pancreatic CA s/p 1 round of chemo in June 2021, HFrEF/ischemic CM, CAD, HTN, HLD, GERD, depression admitted for hypoK/hypoMg/ascites/ileus/FTT # anasarca # ascites - albumin given 11/15. therapeutic paracentesis done 11/16, -500 mL. change to PO furosemide. # hypoK # hypoMg - repleted, continue PO maintenance # pancreatic CA # FTT - hospice consultation # ileus - resolving, trial of clear liquids # DM2, A1c 8.26 July 2021 - correction-dose lispro # HTN - amlodipine # ischemic CM # CAD - continue ASA # GERD - continue PPI # mood disorder - continue clonazepam, sertraline # depression - continue sertraline # VTE ppx: UFH In my clinical judgment, the patient requires continued hospitalization for the following reasons: ileus Quality Stroke Does the patient have a stroke diagnosis?: No VTE Prior VTE?: No VTE Risk Level:: Medical - moderate - high VTE Device Contraindication: Treatment Not Indicated VTE Drug Contraindication: N/A - Med Ordered
--- NOTE | 2021-11-17 10:47 | P.CNHO_ITS ---
Subjective - Subjective Chief complaint: Consult for: Pancreatic carcinoma. Patient: new to practice Consult date: 11/17/21 Requesting Physician: Luci. Primary Care Provider: Maddison Saini DO Medical Summary: DIAGNOSIS: PANCREATIC CARCINOMA. HPI - Consult Narrative Reason for consult: Consult for: Pancreatic carcinoma. Narrative: Barbara Garcia is a pleasant 81 year old lady, with pancreatic cancer with CA-19 level 1943, presented to the ED, with her son due to increased edema in the arms, legs, and shortness of breath ongoing for several days. She stated over the last two months has been declining with generalized weakness, anorexia, nausea, and chronic epigastric pain r/t pancreatic cancer. She had started gemcitabine/abraxane in 07/10 for chemotherapy but developed GI symptoms and was hospitalized during which she developed CHF and NSTEMI. She had been recommended for hospice due to progression of her cancer but patient was never started on hospice. She has had several falls in the last few month that have prevented her from making it to appointments. She denies any head injury or any falls in the last few weeks. DATABASE: CXR in ed was negative. No leukocytosis, mild normocytic anemia. Renal function stable with creat 2.29, bun 21. Glucose 206. K 3.0. Na 133. Calcium 7.6. AST 99, ALT 78, Alk phos 169, BNP 783, total protein 5.9, albumin 2.5. Trop-90.9. EKG NSR no st/t wave abnormality. Review of Systems Review of Systems: General: +generalized weakness, +anorexia. Dizziness. No fevers, malaise, unintentional weight loss Cardiovascular: +leg, arm edema. No chest pain, palpitations Respiratory: +sob. No wheezing, cough GI: +nausea, +diarrhea. Abdominal pain, No vomiting, constip ation,melena,hematochezia : No dysuria, hematuria, increased urinary frequency Neuro: No headaches, paresthesias Skin: No rashes or lesions [facility] Medical History: non insulin dependent type 2 diabetes, HFrEF, ischemic cardiomyopathy, CAD w h/o NSTEMI, htn, hld, gerd, and depression Anemia Arthritis Atherosclerotic cardiovascular disease Atypical pneumonia CAD (coronary artery disease) Chest pain CHF (congestive heart failure) CKD (chronic kidney disease) Depression Diabetes Essential hypertension HLD (hyperlipidemia) HTN (hypertension) Pancreatic cancer Pleural effusion Precordial chest pain Respiratory failure with hypoxia Family History: Father: colon cancer Review of Systems - Constitutional Reports system reviewed and no additional complaints, except as documented, Reports fatigue, Reports lack of energy, Reports malaise, Reports weakness, Reports weight loss - Eyes Reports system reviewed and no additional complaints, except as documented, Denies blurry vision - ENT Reports system reviewed and no additional complaints, except as documented - Cardiovascular Reports system reviewed and no additional complaints, except as documented, Denies chest pain at rest - Respiratory Reports no additional respiratory complaints, Denies change in phlegm color - Gastrointestinal Reports system reviewed and no additional complaints, except as documented, Reports abdominal pain, Reports nausea, Denies pain with swallowing - Genitourinary Reports no additional female genitourinary complaints, Denies abnormal periods - Musculoskeletal Reports system reviewed and no additional complaints, except as documented, Reports back pain, Reports decreased muscle mass - Integumentary/Breasts Skin/Breast: Reports no additional skin complaints, Denies acne - Neurologic Reports system reviewed and no additional complaints, except as documented - Psychiatric Reports system reviewed and no additional complaints, except as documented, Reports depression, Denies anxiety - Endocrine Reports no additional endocrine complaints, Denies excessive sweating - Hematologic/Lymphatic Reports system reviewed and no additional complaints, except as documented, Denies easy bruising - Allergic/Immunologic Reports system reviewed and no additional complaints, except as documented Oncology Screenings - ECOG Performance Status ECOG Performance Status: 2 [facility] Medical History: Medical History (Last Reviewed 11/21/21 @ 00:46 by Sam Long MD) Anemia Arthritis Atherosclerotic cardiovascular disease Atypical pneumonia CAD (coronary artery disease) Chest pain CHF (congestive heart failure) CKD (chronic kidney disease) Depression Diabetes Essential hypertension HLD (hyperlipidemia) HTN (hypertension) Pancreatic cancer Pleural effusion Precordial chest pain Respiratory failure with hypoxia Functional capacity: wheelchair bound Patient : No Family History: Family History (Last Reviewed 11/21/21 @ 00:46 by Sam Long MD) Father Colon cancer Myocardial infarction Mother Uterine cancer Surgical History: Surgical History (Last Reviewed 11/21/21 @ 00:46 by Sam Long MD) History of History of esophagogastroduodenoscopy (EGD) History of hysteroscopy Hx of cholecystectomy Hx of colonoscopy Hx of eye surgery Social History: Social History (Last Reviewed 11/21/21 @ 00:46 by Sam Long MD) Living Situation History: Household Members: Children Housing: Apartment Do you presently have visiting nurse or other home services: No Tobacco History: Patient Tobacco Use Status: Never used Tobacco Second Hand Smoke Exposure: No Advance Directives: Advance Directives: No Advance Directives Information Provided: Advance Directives Information Provided comment: declined Advance Directives Date on File: 11/17/21 Occupation Assessmet: service: No Current occupational status: disabled Sex/Gender Assessment: Sexual orientation: Straight/Heterosexual Gender identity: Female Home Medications and Allergies Current Medications: Current Medications Acetaminophen (Acetaminophen 325 Mg Tablet) 650 mg PO Q6H PRN PRN Reason: Pain, Mild (Pain Scale 1-3) Amlodipine Besylate (Amlodipine Besylate 2.5 Mg Tablet) 2.5 mg PO BEDTIME [facility]; Protocol Last Admin: 11/16/21 22:46 Dose: 2.5 mg Aspirin (Aspirin Enteric Coated 81 Mg Tablet.) 81 mg PO DAILY [facility] Last Admin: 11/16/21 11:14 Dose: 81 mg Clonazepam (Clonazepam 0.5 Mg Tablet) 0.5 mg PO BID [facility] Last Admin: 11/16/21 22:46 Dose: 0.5 mg Dextrose (Dextrose 50 % 25 Gm/50 Ml Syringe) 25 gm IVPUSH Q15M PRN; Protocol PRN Reason: per Hypoglycemia Standing Ord. Furosemide (Furosemide 40 Mg Tablet) 40 mg PO BID@0900,1800 [facility]; Protocol Glucose (Glucose Gel 15 Gm Gel..Gram.) 15 gm PO Q15M PRN; Protocol PRN Reason: per Hypoglycemia Standing Ord. Heparin Sodium (Porcine) (Heparin Sodium,Porcine 5,000 Unit/Ml Vial) 5,000 unit SUBCUT Q12H [facility] Last Admin: 11/17/21 05:07 Dose: 5,000 unit Insulin Human Lispro (Insulin Lispro 100 Unit/Ml 3 Ml Vial) 0 unit SUBCUT QIDACHS [facility]; Protocol Last Admin: 11/17/21 07:35 Dose: Not Given Magnesium Oxide (Magnesium Oxide 400 Mg Tablet) 400 mg PO DAILY [facility] Last Admin: 11/16/21 11:14 Dose: 400 mg Omeprazole (Omeprazole 20 Mg Capsule.) 20 mg PO BID@0630,1630 [facility] Last Admin: 11/17/21 05:09 Dose: 20 mg Ondansetron HCl (Ondansetron Hcl 4 Mg/2 Ml Vial) 4 mg IVPUSH Q8H PRN PRN Reason: Nausea and Vomiting Pharmacy Consult (Consult Rx Perform Med Rec) 1 each MISCELLANE ONCE PRN PRN Reason: Consult order Potassium Chloride (Potassium Chloride Er 10 Meq Capsule.Er) 10 meq PO DAILY [facility] Last Admin: 11/16/21 11:14 Dose: 10 meq Potassium Chloride (Potassium Chloride Er 20 Meq Tab.Er.Prt) 20 meq PO DAILY [facility] Last Admin: 11/16/21 11:43 Dose: 20 meq Sertraline HCl (Sertraline Hcl 100 Mg Tablet) 200 mg PO DAILY [facility] Last Admin: 11/16/21 11:14 Dose: 200 mg Sodium Chloride (0.9 % Sodium Chloride Flush 3 Ml Syringe) 3 ml IVFLUSH QSHIFT [facility] Last Admin: 11/17/21 09:15 Dose: Not Given Tolterodine Tartrate (Tolterodine Tartrate La 2 Mg Cap.Er.24h) 2 mg PO DAILY [facility] Last Admin: 11/16/21 11:44 Dose: Not Given Home Medications Medication Instructions Recorded Confirmed Type clonazepam 0.5 mg tablet 0.5 mg PO BID 07/18/21 11/21/21 History sertraline 100 mg tablet 200 mg PO DAILY 07/18/21 11/21/21 History tolterodine 2 mg capsule,extended 2 mg PO DAILY 07/18/21 11/21/21 History release 24 hr pantoprazole 40 mg tablet,delayed 1 tab PO BID 11/15/21 11/21/21 History release potassium chloride 10 mEq 1 tab PO DAILY 11/21/21 11/21/21 History tablet,extended release Allergies Allergy/AdvReac Type Severity Reaction Status Date / Time prochlorperazine Allergy Severe SEIZURE Verified 07/17/21 18:49 adhesive tape [ADHESIVE TAPE] Allergy Intermediate RASH Verified 07/17/21 18:49 latex [LATEX] Allergy Intermediate RASH Verified 07/17/21 18:49 clarithromycin Allergy Mild RASH Verified 07/17/21 18:49 hydrochlorothiazide Allergy Mild RASH Verified 07/17/21 18:49 metoclopramide [From Reglan] AdvReac Severe SEIZURES Verified 07/17/21 18:49 lactose AdvReac Mild Gastrointestinal Verified 07/22/21 09:56 Upset ibuprofen AdvReac Unknown unknown Verified 07/17/21 18:49 BIAXIN Allergy Intermediate RASH Uncoded 05/19/21 13:30 Physical Exam Vital signs: Vital Signs Temp 97.2 F 11/17/21 07:44 Pulse 75 11/17/21 07:44 Resp 16 11/17/21 07:44 BP 119/64 11/17/21 07:44 Pulse Ox 99 11/17/21 07:44 O2 Del Method 11/17/21 07:44 O2 Flow Rate 100 11/16/21 14:29 Intake & Output 11/16/21 11/17/21 11/17/21 18:59 06:59 18:59 Intake Total 300 / 500 200 / 500 Output Total 1200 / 1400 200 / 1400 Balance -900 / -900 0 / -900 Urine Output (Average ml/kg/hr) 2.00 0.33 Intake: Intake, IV Amount 300 / 500 200 / 500 Magnesium Sulfate/H2O 2 gm In 100 / 100 50 ml @ 25 mls/hr IV ONCE ONE Rx#:[id number] Potassium Chloride/H20 10 meq 300 / 400 100 / 400 In 100 ml @ 100 mls/hr IV Q1H DAVID Rx#:[id number] Output: Output, Urine Amount 1200 / 1400 200 / 1400 Other: Meal Refused No NPO Yes Number of Incontinent Voids 1 Urine purewick Urine Color Yellow Weight 49.895 kg - Constitutional Present: moderate distress - Routine HEENT Exam Head: Present: normocephalic ENT: Present: mucous membranes moist - Routine Neck Exam Present: supple - Routine Respiratory Exam Present: CTAB - Routine Cardiovascular Exam Cardiovascular: Present: S1, S2 - Routine Abdominal Exam Present: tenderness - Routine Extremities Exam Present: nontender - Routine Skin Exam Present: intact - Routine Neurological Exam Present: alert, oriented X3, moving all extremities, normal speech - Routine Psychiatric Exam Present: depressed Hem/Onc Consult Result - Labs CBC & Chem 7: 11/17/21 08:22 11/18/21 05:25 Labs: Short CBC 11/17/21 Range/Units 08:22 WBC 6.1 (4.8-10.8) X10*3/uL Hgb 9.5 L (12.0-16.0) g/dl Hct 28.1 L (37.0-47.0) % Plt Count 236 D (160-400) X10*3/uL BMP 11/17/21 08:22 Sodium 139 Potassium 3.9 D Chloride 98 Carbon Dioxide 24 BUN 20 H Creatinine 2.05 H Calcium 8.0 L Assessment and Plan Patient Active problem list reviewed?: Yes (1) Pancreatic carcinoma Status: Acute Assessment and plan: This is a 81 year old woman with pancreatic cancer diagnosed in April 2021. She underwent EUS/biopsy on 05/17/2021 at [facility] which revealed a 2.5 x 2.6 cm mass in head of pancreas which shows mostly solid with a small cystic component. FNA of this was performed pathology revealed adenocarcinoma, morphologically consistent with pancreatic ductal primary. A 2nd lesion in the body of the pancreas measuring 1.6 X 0.7 cm, also with solid and cystic component. CBD measured 8 mm dilated pancreatic duct up to 5 mm. Initial CA 19-9 level;351. Staging PET-CT showed no FDG avid lesions suspicious for malignant lesions or metastases. She started chemotherapy with Gemcitabine/Abraxane on 06/29/2021. She got admitted to the hospital on 07/19/2021 with GI symptoms. During the hospitalization she developed non ST VT and congestive heart failure. She is on aspirin and Lasix. She was undecided about hospice care intially, however later on agreed. Over the past few weeks, her performance status has declined considerably. She has abdominal pain and failure to thrive. CA 19/9 now risen to over 1900. I had a detailed discussion with the patient and her son Andrei, with the help of the operations tech. They are in agreement that they would like home hospice care. PLAN: I made the referral to home hospice program at [facility]. Gave them the daughter Melinda's number: [phone]. Discussed the plan with the hospitalists. Thank you for the consult, I will follow along with you, CC: - Time Spent With Patient Time Spent with Patient (in minutes): 30
[2021-11-17 11:28] LABS: Glucose, Whole Blood 103 mg/dL (60-115)
[2021-11-17 15:44] VITALS: BP 125/68; PULSE 73; RESP 16; TEMP 36.3; O2SAT 100
--- NOTE | 2021-11-17 15:58 | MHC.CM.PN ---
PER CONVERSATION WITH [facility] AND [facility] CONTA[facility], PATIENT HAS ' ALOT OF INFORMATION' AND WANTS TO TALK WITH FAMILY ABOUT CHOICES. HOSPITALIST MADE AWARE CASE MANAGEMENT FOLLOWING FOR PLANS.
[2021-11-17 15:59] LABS: Glucose, Whole Blood 152 mg/dL (60-115)
[2021-11-17 16:00] VITALS: BP 113/61; PULSE 78; RESP 17; TEMP 36.5; O2SAT 100
[2021-11-17] MEDS: Insulin Lispro 100 UNIT/ML 3 ML VIAL SUBCUT (17:41)
[2021-11-17] MEDS: Furosemide 40 MG TABLET PO (17:41)
[2021-11-17 17:55] VITALS: BMI 21.3
[2021-11-17 19:09] VITALS: BP 116/59; PULSE 85; RESP 17; TEMP 36.9; O2SAT 100
[2021-11-17 19:37] LABS: Glucose, Whole Blood 146 mg/dL (60-115)
[2021-11-17] MEDS: clonazePAM 0.5 MG TABLET PO (20:07)
[2021-11-17] MEDS: amLODIPine Besylate 2.5 MG TABLET PO (20:07)
[2021-11-17] MEDS: ondansetron HCL 4 MG/2 ML VIAL IVPUSH (20:08)
[2021-11-17 23:31] VITALS: BP 126/64; PULSE 70; RESP 18; TEMP 36.2; O2SAT 100
[2021-11-18 03:16] VITALS: BP 144/69; PULSE 74; RESP 18; TEMP 36.5; O2SAT 100
[2021-11-18] MEDS: Heparin Sodium,Porcine 5,000 UNIT/ML VIAL 5000 UNIT SUBCUT ×2 (05:47→17:09)
[2021-11-18] MEDS: Omeprazole 20 MG CAPSULE.DR PO ×2 (05:47→15:37)
--- NOTE | 2021-11-18 06:31 | PC.NURSE ---
Pt has no urine the whole night, bladder scan =439ml done around 6am,encouraged pt to pee, repositioned on bed, , was made aware and verballly ordered to straight cath pt, revisited pt to do the straight cath, pt noted and claimed she voided and noted 230 ml in her purewick canister, notified.
[2021-11-18 07:08] VITALS: BP 134/65; PULSE 69; RESP 17; TEMP 36.7; O2SAT 100
[2021-11-18 07:17] LABS: Alanine Aminotransferase 57 U/L (0-31); Albumin Level 2.5 g/dL (3.5-5.0); Alkaline Phosphatase 126 U/L (39-117); Anion Gap 14 (12-20); Aspartate Amino Transferase 76 U/L (5-31); Bilirubin Total 0.5 mg/dL (0.0-1.0); Blood Urea Nitrogen 23 mg/dL (9-16); Carbon Dioxide 30 mmol/L (22-29); Chloride 97 mmol/L (96-108); Creatinine Clr Calc Pharmacy 14.5; Estimated Glomerular Filt Rate 21; Glucose Random 75 mg/dL (60-115); Magnesium 1.6 mg/dL (1.6-2.6); Potassium 3.3 mmol/L (3.3-5.1); Sodium 138 mmol/L (135-145); Total Protein 4.9 g/dL (6.5-8.0)
[2021-11-18 07:20] LABS: Glucose, Whole Blood 76 mg/dL (60-115)
[2021-11-18] MEDS: Tolterodine Tartrate LA 2 MG CAP.ER.24H PO (08:17)
[2021-11-18] MEDS: Sertraline HCL 100 MG TABLET 200 MG PO (08:17)
[2021-11-18] MEDS: Furosemide 40 MG TABLET PO ×2 (08:17→17:08)
[2021-11-18] MEDS: Potassium Chloride ER 20 MEQ TAB.ER.PRT PO (08:17)
[2021-11-18] MEDS: Magnesium Oxide 400 MG TABLET PO (08:17)
[2021-11-18] MEDS: Aspirin Enteric Coated 81 MG TABLET.DR PO (08:17)
[2021-11-18] MEDS: 0.9 % Sodium Chloride Flush 3 ML SYRINGE IVFLUSH ×2 (08:30→15:36)
--- NOTE | 2021-11-18 10:15 | PC.NURSE ---
Patients son is asking for patient to be brought to facility instead of home due to construction in her building and windows being removed with colder temperatures.
--- NOTE | 2021-11-18 10:35 | PM.DS ---
DS: Providers Provider Date of Service: 11/18/21 Date of admission: 11/15/21 16:54 Date of discharge: 11/18/21 Primary care physician: Maddison Saini DO DS: Diagnosis Discharge Diagnosis (1) Pancreatic carcinoma: Status: Acute (2) Adult failure to thrive: Status: Acute (3) Acute hypokalemia: Status: Resolved (4) Anasarca: Status: Acute (5) Hypomagnesemia: Status: Acute (6) Ascites: Status: Acute (7) Ileus: Status: Acute (8) Moderate protein-calorie malnutrition: Status: Acute DS: Summary Hospital Course Hospital Course: from admission H+P by hospitalist KARLOS Savage, 11/15/21: Chief Complaint: fluid overload, weakness, failure to thrive 81 year old female with pancreatic cancer with CA-19 level 1943, non insulin dependent type 2 diabetes, HFrEF, ischemic cardiomyopathy, CAD w h/o NSTEMI, htn, hld, gerd, and depression presented to the ED today with her son due to increased edema in the arms, legs, and shortness of breath ongoing for several days. States over the last two months has been declining with generalized weakness, anorexia, nausea, and chronic epigastric pain r/t pancreatic cancer.? She had started gemcitabine/abraxane in 07/10 for chemotherapy but developed GI symptoms and was hospitalized during which she developed CHF and NSTEMI. She had been recommended for hospice due to progression of her cancer but patient was never started on hospice and wishes to be full code. She has had several falls in the last few montsh that have prevented her from making it to appointments and denies any head injury or any falls in the last few weeks. CXR in ed was negative. No leukocytosis, mild normocytic anemia. Renal function stable with creat 2.29, bun 21. Glucose 206. K 3.0. Na 133. Calcium 7.6. AST 99, ALT 78, Alk phos 169, BNP 783, total protein 5.9, albumin 2.5. Trop-90.9. EKG NSR no st/t wave abnormality. This 81yo F with pancreatic CA s/p 1 round of chemo in June 2021, HFrEF/ischemic CM, CAD, HTN, HLD, GERD, and depression was admitted for hypoK/hypoMg/ascites/ileus/FTT. She was given albumin and IV furosemide diuresis. Paracentesis was done on 11/16/21 with removal of 500 mL of fluid. Abdominal and leg swelling improved. Potassium and magnesium were repleted. Ileus resolved and her diet was advanced. Hospice services were consulted but the patient was undecided. In the meanwhile, she was sent to SNF for respite care. Time Spent with Patient Time attestation: Total time spent providing and/or coordinating discharge services: 35 Discharge coordination time: Greater than 30 minutes Quality: Safe Use of Opioids Does Pt have an Active Cancer Diagnosis on the Problem List?: Yes Opioid Measure Date for [facility] Report: 10/27/21 Opioid Measure Time for [facility] Report: 07:31 Quality: Stroke Does the patient have a stroke diagnosis?: No Physical Exam Vital Signs: Vital Signs: Last Vital Signs Temp 98.1 F 11/18/21 07:08 Pulse 69 11/18/21 07:08 Resp 17 11/18/21 07:08 BP 134/65 11/18/21 07:08 Pulse Ox 100 11/18/21 07:08 O2 Del Method 11/18/21 07:08 O2 Flow Rate 100 11/16/21 14:29 BMI result Body Mass Index 21.3 Gen: chronically ill-appearing HEENT: sclera anicteric, moist mucus membranes Neck: supple Lungs: clear to auscultation bilaterally Heart: regular rate and rhythm, no murmurs Abd: soft, bowel sounds present, paracentesis site C/D/I Ext: 1+ leg edema Skin: warm/well-perfused Neuro: alert and oriented x3, no focal findings Psych: appropriate affect DS: Data Data Completed and Pending Completed studies during hospitalization [Text1]: Laboratory Results WBC 6.1 X10*3/uL (4.8-10.8) 11/17/21 08: RBC 3.50 X10*6/uL (4.20-5.50) L 11/17/21 08: Hgb 9.5 g/dl (12.0-16.0) L 11/17/21 08:22 Hct 28.1 % (37.0-47.0) L 11/17/21 08:22 MCV 80.3 fL (80.0-98.0) 11/17/21 08:22 MCH 27.1 pg (27.0-33.0) 11/17/21 08: MCHC 33.8 g/dl (31.0-35.0) 11/17/21 08: RDW 15.4 % (11.0-16.0) 11/17/21 08: Plt Count 236 X10*3/uL (160-400) D 11/17/21 08: MPV 11.5 fL (9.4-12.3) 11/17/21 08: Immature Gran % (Auto) 0.4 % (0.0-0.4) 11/15/21 13:17 Neut % (Auto) 72.4 % (45-73) 11/15/21 13:17 Lymph % (Auto) 17.8 % (20-40) L 11/15/21 13:17 Summers % (Auto) 6.5 % (2-11) 11/15/21 13:17 Eos % (Auto) 2.5 % (0-4) 11/15/21 13:17 Baso % (Auto) 0.4 % (0-2) 11/15/21 13:17 Lymph # (Auto) 1.0 X10*3/uL (1.2-4.9) L 11/15/21 13:17 Summers # (Auto) 0.4 X10*3/uL (0.1-1.2) 11/15/21 13:17 Eos # (Auto) 0.1 X10*3/uL (0.0-0.4) 11/15/21 13:17 Baso # (Auto) 0.0 X10*3/uL (0.0-0.2) 11/15/21 13:17 Abs Immat Gran (auto) 0.02 X10*3/uL (0.00-0.03) 11/15/21 13:17 Absolute Neuts (auto) 4.1 x10*3/uL (2.0-8.3) 11/15/21 13:17 Absolute Nucleated RBC 0.000 X10*3/uL (0.0-0.012) 11/17/21 08: Nucleated RBC % (auto) 0.0 /100WBC (0.0-0.2) 11/17/21 08:22 PT 13.1 SEC (10.0-13.1) 11/16/21 09:14 INR 1.1 (0.9-1.1) 11/16/21 09:14 APTT 31.2 SEC (26.0-36.4) 11/16/21 09:14 Sodium 138 mmol/L (135-145) 11/18/21 05:25 Potassium 3.3 mmol/L (3.3-5.1) 11/18/21 05:25 Chloride 97 mmol/L (96-108) 11/18/21 05:25 Carbon Dioxide 30 mmol/L (22-29) H 11/18/21 05:25 Anion Gap 14 (12-20) 11/18/21 05:25 BUN 23 mg/dL (9-16) H 11/18/21 05:25 Creatinine 2.26 mg/dL (0.5-1.4) H 11/18/21 05:25 Estim Creat Clear Calc 14.5 11/18/21 05:25 Estimated GFR 21 11/18/21 05:25 POC Glucose 76 mg/dL (60-115) 11/18/21 07:16 Random Glucose 75 mg/dL (60-115) 11/18/21 05:25 Lactic Acid 1.0 mmol/L (0.5-2.0) 11/16/21 09:14 Calcium 8.0 mg/dL (8.4-10.2) L 11/18/21 05:25 Magnesium 1.6 mg/dL (1.6-2.6) 11/18/21 05:25 Total Bilirubin 0.5 mg/dL (0.0-1.0) 11/18/21 05:25 Direct Bilirubin 0.5 mg/dL (0.0-0.5) 11/15/21 13:17 AST 76 U/L (5-31) H 11/18/21 05:25 ALT 57 U/L (0-31) H 11/18/21 05:25 Alkaline Phosphatase 126 U/L (39-117) H D 11/18/21 05:25 Troponin I High Sens 90.9 ng/L (<3.5-17.0) H* D 11/15/21 13:17 B-Natriuretic Peptide 783 pg/mL (<100) H 11/15/21 13:17 Total Protein 4.9 g/dL (6.5-8.0) L 11/18/21 05:25 Albumin 2.5 g/dL (3.5-5.0) L 11/18/21 05:25 Lipase < 4 U/L (8-78) L 11/15/21 13:17 COVID-19 (SELENE) Negative (Negative) 11/15/21 13:17 COVID-19 Clin Com See Note 11/15/21 13:17 Impressions Chest X-Ray 11/15/21 14:45 IMPRESSION: No acute cardiopulmonary findings. Abdomen/Pelvis CT 11/15/21 20:47 IMPRESSION: Limited exam due to lack of oral and IV contrast. Abnormal appearing bowel probably representing an ileus. There is question of wall thickening of the stomach and left colon. There is question of wall thickening of the right colon. There is severe atherosclerotic disease and correlation with lactate level to exclude ischemia recommended. Diverticulosis of the distal colon. No evidence of diverticulitis. Large amount of ascites in the abdomen and pelvis. This is increased from June 2021 exam. Liver cysts. Postcholecystectomy. Mild intra and extrahepatic biliary duct dilatation and severe dilatation of the main pancreatic duct. Question 1 x 1.5 cm cystic lesion in the body the pancreas. Findings will be communicated by the [place] work flow clam shucker.. Fleischner guidelines were followed. Paracentesis Ultrasound 11/16/21 12:30 IMPRESSION: Ultrasound-guided paracentesis. KUB X-Ray 11/17/21 08:06 IMPRESSION: Improving small and large bowel dilatation compared to 11/15/2021 exam. Discharge Plan Discharge Anticipated Discharge Date/Time: 11/18/21 14:00 Patient Disposition: Xfer SNF Discharge Diagnosis: anasarca, hypokalemia, hypomagnesemia, pancreatic cancer Referrals: Maddison Saini DO [Primary Care Provider] - 1 Week Discharge Medications: New furosemide 40 mg Tablet 40 mg PO BID@0900,1800 Qty: 60 0RF Protocol: Hold for SBP< HOLD for SBP < : 90 magnesium oxide 400 mg (241.3 mg magnesium) Tablet 400 mg PO BID Qty: 60 0RF Continued amlodipine 2.5 mg tablet 2.5 mg PO BEDTIME Qty: 90 1RF tolterodine 2 mg capsule,extended release 24hr 2 mg PO DAILY clonazepam 0.5 mg tablet 0.5 mg PO BID sertraline 100 mg tablet 200 mg PO DAILY aspirin 81 mg tablet,delayed release (DR/EC) 81 mg PO DAILY Qty: 90 3RF pantoprazole 40 mg tablet,delayed release (DR/EC) 1 tab PO BID Discontinued furosemide 40 mg tablet 40 mg PO DAILY Qty: 90 1RF Protocol: Hold for SBP< HOLD for SBP < : 90 potassium chloride 10 mEq Capsule, Extended Release 10 meq PO DAILY Qty: 30 1RF magnesium oxide 400 mg (241.3 mg magnesium) tablet 400 mg PO DAILY No Action potassium chloride 10 mEq tablet extended release 1 tab PO DAILY Discharge Orders: Discharge Order (Routine); Ordered 11/18/21 Ordered By: Cruz Verma Diet: Advance to usual diet Activity on Discharge: As tolerated Stand Alone Forms: Patient Portal Discharge page Care Plan Goals: patient comfort; alleviation of swelling Health Concerns: anasarca, hypokalemia, hypomagnesemia, pancreatic cancer Plan of Treatment: respite care consider home hospice eventually Assessment: See Discharge Summary Patient Instructions: Hospice Care (GEN) Discharge Date/Time: 11/18/21 17:30
[2021-11-18 10:59] VITALS: BP 149/75; PULSE 76; RESP 16; TEMP 36.9; O2SAT 98
[2021-11-18 11:28] LABS: Glucose, Whole Blood 113 mg/dL (60-115)
--- NOTE | 2021-11-18 12:42 | MHC.CM.PN ---
CM MET WITH PT AND SON MURPHY. PATIENT IS NOT READY TO PURSUE HOSPICE, SON DEFERS CM TO SISTER DAMON ([phone]) DAMON STATES SHE IS NOT CLEAR ABOUT HOSPICE AND NOT READY FOR THAT AT THIS TIME. REQUESTS A SNF REFERRAL HER WINDOWS ARE BEING REPLACED IN THE HOME, REFERRALS SENT TO [facility]
[2021-11-18 14:00] VITALS: BMI 21.3
--- NOTE | 2021-11-18 14:14 | MHC.CLN ---
F/U NUTRITION DX NON SEVERE (MODERATE) MALNUTRITION IN THE CONTEXT OF CHRONIC ILLNESS. DIET=REGULAR. SUPPLEMENT ENSURE TID PROVIDES ADDITIONAL 1050 KCALS, 60 G PROTEIN. FOLLOW FOR INTAKE, DIET TOLERANCE, WEIGHTS. SEE CLINICAL NUTRITION ASSESSMENT.
[2021-11-18 15:01] VITALS: BP 132/71; PULSE 82; RESP 17; TEMP 37.1; O2SAT 100
[2021-11-18 15:12] LABS: COVID-19 Test Negative (Negative)
--- NOTE | 2021-11-18 15:30 | HO.PM.IMPN ---
Subjective Subjective Date of Service: 11/18/21 Interval History: swelling improved pain controlled unsure about home hospice plan for respite care at [facility] Review of Systems Review of Systems: Yes all other systems are reviewed and are negative Physical Exam Vital Signs: Vital Signs: Last Vital Signs Temp 98.8 F 11/18/21 15:01 Pulse 82 11/18/21 15:01 Resp 17 11/18/21 15:01 BP 132/71 11/18/21 15:01 Pulse Ox 100 11/18/21 15:01 O2 Del Method 11/18/21 15:01 O2 Flow Rate 100 11/16/21 14:29 BMI result Body Mass Index 21.3 Gen: chronically ill-appearing HEENT: sclera anicteric, moist mucus membranes Neck: supple Lungs: clear to auscultation bilaterally Heart: regular rate and rhythm, no murmurs Abd: soft, bowel sounds present, paracentesis site C/D/I Ext: no edema Skin: warm/well-perfused Neuro: alert and oriented x3, no focal findings Psych: appropriate affect Objective Data Active Medications Acetaminophen (Acetaminophen 325 Mg Tablet) 650 mg PO Q6H PRN PRN Reason: Pain, Mild (Pain Scale 1-3) Amlodipine Besylate (Amlodipine Besylate 2.5 Mg Tablet) 2.5 mg PO BEDTIME [facility]; Protocol Last Admin: 11/17/21 20:07 Dose: 2.5 mg Documented By: LUIS M Comments: bh=457/59 h=85 Aspirin (Aspirin Enteric Coated 81 Mg Tablet.) 81 mg PO DAILY [facility] Last Admin: 11/18/21 08:17 Dose: 81 mg Documented By: FIFI Clonazepam (Clonazepam 0.5 Mg Tablet) 0.5 mg PO BID [facility] Last Admin: 11/18/21 08:29 Dose: Not Given Documented By: FIFI Non-Admin Reason: Patient Refused Dextrose (Dextrose 50 % 25 Gm/50 Ml Syringe) 25 gm IVPUSH Q15M PRN; Protocol PRN Reason: per Hypoglycemia Standing Ord. Furosemide (Furosemide 40 Mg Tablet) 40 mg PO BID@0900,1800 [facility]; Protocol Last Admin: 11/18/21 08:17 Dose: 40 mg Documented By: FIFI Glucose (Glucose Gel 15 Gm Gel..Gram.) 15 gm PO Q15M PRN; Protocol PRN Reason: per Hypoglycemia Standing Ord. Heparin Sodium (Porcine) (Heparin Sodium,Porcine 5,000 Unit/Ml Vial) 5,000 unit SUBCUT Q12H [facility] Last Admin: 11/18/21 05:47 Dose: 5,000 unit Documented By: LUIS M Insulin Human Lispro (Insulin Lispro 100 Unit/Ml 3 Ml Vial) 0 unit SUBCUT QIDACHS [facility]; Protocol Last Admin: 11/18/21 12:10 Dose: Not Given Documented By: FIFI Non-Admin Reason: No Insulin Coverage Magnesium Oxide (Magnesium Oxide 400 Mg Tablet) 400 mg PO DAILY [facility] Last Admin: 11/18/21 08:17 Dose: 400 mg Documented By: FIFI Omeprazole (Omeprazole 20 Mg Capsule.Dr) 20 mg PO BID@0630,1630 [facility] Last Admin: 11/18/21 05:47 Dose: 20 mg Documented By: LUIS M Ondansetron HCl (Ondansetron Hcl 4 Mg/2 Ml Vial) 4 mg IVPUSH Q8H PRN PRN Reason: Nausea and Vomiting Last Admin: 11/17/21 20:08 Dose: 4 mg Documented By: LUIS M Pharmacy Consult (Consult Rx Perform Med Rec) 1 each MISCELLANE ONCE PRN PRN Reason: Consult order Potassium Chloride (Potassium Chloride Er 10 Meq Capsule.Er) 10 meq PO DAILY [facility] Last Admin: 11/18/21 08:20 Dose: Not Given Documented By: FIFI Non-Admin Reason: capsule too large per pt Potassium Chloride (Potassium Chloride Er 20 Meq Tab.Er.Prt) 20 meq PO DAILY [facility] Last Admin: 11/18/21 08:17 Dose: 20 meq Documented By: FIFI Sertraline HCl (Sertraline Hcl 100 Mg Tablet) 200 mg PO DAILY [facility] Last Admin: 11/18/21 08:17 Dose: 200 mg Documented By: FIFI Sodium Chloride (0.9 % Sodium Chloride Flush 3 Ml Syringe) 3 ml IVFLUSH QSHIFT [facility] Last Admin: 11/18/21 08:30 Dose: 3 ml Documented By: FIFI Tolterodine Tartrate (Tolterodine Tartrate La 2 Mg Cap.Er.24h) 2 mg PO DAILY [facility] Last Admin: 11/18/21 08:17 Dose: 2 mg Documented By: FIFI Labs CBC & Chem 7: 11/17/21 08:22 11/18/21 05:25 Labs: Laboratory Results - last 24 hr 11/17/21 11/17/21 11/18/21 15:55 19:24 05:25 Anion Gap 14 Estim Creat Clear Calc 14.5 Estimated GFR 21 POC Glucose 152 H 146 H Random Glucose 75 Calcium 8.0 L Magnesium 1.6 Total Bilirubin 0.5 AST 76 H ALT 57 H Alkaline Phosphatase 126 H D Total Protein 4.9 L Albumin 2.5 L COVID-19 (SELENE) COVID-19 Clin Com 11/18/21 11/18/21 11/18/21 07:16 11:11 Unknown Anion Gap Estim Creat Clear Calc Estimated GFR POC Glucose 76 113 Random Glucose Calcium Magnesium Total Bilirubin AST ALT Alkaline Phosphatase Total Protein Albumin COVID-19 (SELENE) Negative COVID-19 Clin Com See Note Microbiology Microbiology Results: Microbiology 11/16/21 12:05 Gram Stain - Final Ascites Fluid Routine Culture - Final No growth after 2 days Anaerobic Culture - Preliminary No growth to date. Assessment and Plan (1) Acute hypokalemia: Status: Acute (2) Anasarca: Status: Acute Plan hospital d#4 81yo F with pancreatic CA s/p 1 round of chemo in June 2021, HFrEF/ischemic CM, CAD, HTN, HLD, GERD, depression admitted for hypoK/hypoMg/ascites/ileus/FTT # anasarca # ascites - albumin given 11/15. therapeutic paracentesis done 11/16, -500 mL. changed to PO furosemide bid # hypoK # hypoMg - repleted, continue PO maintenance # pancreatic CA # FTT - hospice consultation. pt unsure about home hospice. in meanwhile, going to SNF for respite care. # ileus - resolved, advance diet # DM2, A1c 8.26 July 2021 - correction-dose lispro # HTN - amlodipine # ischemic CM # CAD - continue ASA # GERD - continue PPI # mood disorder - continue clonazepam, sertraline # depression - continue sertraline # VTE ppx: UFH In my clinical judgment, the patient requires continued hospitalization for the following reasons: placement Quality Stroke Does the patient have a stroke diagnosis?: No VTE Prior VTE?: No VTE Risk Level:: Medical - moderate - high VTE Device Contraindication: Treatment Not Indicated VTE Drug Contraindication: N/A - Med Ordered
[2021-11-18 15:49] LABS: Glucose, Whole Blood 187 mg/dL (60-115)
--- NOTE | 2021-11-18 16:28 | MHC.CM.PN ---
PT CLEARED FOR DC, [facility] AUTH OBTAINED FROM [facility], PT [facility] WILL TRANSPORT.
[2021-11-18] MEDS: Insulin Lispro 100 UNIT/ML 3 ML VIAL SUBCUT (17:09)
== END 2021-11-18 17:30 | disposition skilled nursing facility (03) | DRG 389 ==
LOC: HO.ED 16:28 → HO.EDOVER 17:10 → HO.S3 11-17 14:41
PROVIDERS: Radiology Diagnostic Radiology; Admitting Provider Physician Assistant; Emergency Provider Emergency Medicine; PCP Family Medicine; Visit Provider Family Medicine
PROC: 0W9G3ZZ Drainage of Peritoneal Cavity, Percutaneous Approach (ICD-10-PCS; principal; 2021-11-16 11:30)
DX: K56.7 Ileus, unspecified (principal); C25.9 Malignant neoplasm of pancreas, unspecified; I13.0 Hypertensive heart and chronic kidney disease with heart failure and stage 1 through stage 4 chronic kidney disease, or unspecified chronic kidney disease; I50.22 Chronic systolic (congestive) heart failure; N18.4 Chronic kidney disease, stage 4 (severe); R18.8 Other ascites; E44.0 Moderate protein-calorie malnutrition; E11.22 Type 2 diabetes mellitus with diabetic chronic kidney disease; D63.1 Anemia in chronic kidney disease; I25.10 Atherosclerotic heart disease of native coronary artery without angina pectoris; E78.5 Hyperlipidemia, unspecified; E87.6 Hypokalemia; I25.5 Ischemic cardiomyopathy; Z20.822 Contact with and (suspected) exposure to COVID-19; E83.42 Hypomagnesemia; F32.A Depression, unspecified; R62.7 Adult failure to thrive; G89.3 Neoplasm related pain (acute) (chronic); M19.90 Unspecified osteoarthritis, unspecified site; I25.2 Old myocardial infarction; Z68.21 Body mass index [BMI] 21.0-21.9, adult; Z91.040 Latex allergy status; Z88.1 Allergy status to other antibiotic agents; Z88.6 Allergy status to analgesic agent; Z88.8 Allergy status to other drugs, medicaments and biological substances; Z79.82 Long term (current) use of aspirin; Z79.899 Other long term (current) drug therapy
CPT/HCPCS: 36415; 49083; 71045; 74018; 74176; 80048; 80053; 80076; 82947; 83605; 83690; 83735; 83880; 84132; 84484; 85025; 85027; 85610; 85730; 87070; 87073; 87205; 87635; 88112; 93005; 96365; 96375; 97162; 99285; J1940; J2270; J2405; J3475; P9047

== ENCOUNTER 2021-11-20 18:11 | Inpatient (IN) | payer OTHER, SELFPAY ==
--- NOTE | ~2021-11-20 | XR_ITS ---
EXAMINATION: XR CHEST CLINICAL INFORMATION: Shortness of breath COMPARISON: 11/15/2021 TECHNIQUE: Frontal view of the chest was obtained. FINDINGS: New small right pleural effusion. No focal consolidation or mass. No pulmonary edema. Calcified, tortuous aorta. Normal heart size. CT compatible right internal jugular chest port with catheter tip in the midsuperior vena cava. Degenerative changes of the shoulders and spine. XR/XR chest 1V IMPRESSION: New small right pleural effusion.
[2021-11-20 18:25] VITALS: BP 156/81; PULSE 91; RESP 14; O2SAT 98; BMI 21.8
--- NOTE | 2021-11-20 18:44 | ED.GENADULT ---
HPI - General Adult General Chief complaint: General Medical Stated complaint: generalized sickness Time Seen by Provider: 11/20/21 18:37 History of Present Illness HPI narrative: Patient with past medical history of hypertension, diabetes, hyperlipidemia, CAD, CKD, anxiety and depression with history of pancreatic cancer diagnosed in 05/10 to chemotherapy for few months comes here for increased generalized anasarca without significant abdominal distension mostly upper and lower extremities swelling. Patient unable to eat much does not feel hungry for last few weeks Related Data Home Medications Medication Instructions Recorded Confirmed clonazepam 0.5 mg tablet 0.5 mg PO BID 07/18/21 11/15/21 sertraline 100 mg tablet 200 mg PO DAILY 07/18/21 11/15/21 tolterodine 2 mg capsule,extended 2 mg PO DAILY 07/18/21 11/15/21 release 24 hr pantoprazole 40 mg tablet,delayed 1 tab PO BID 11/15/21 11/15/21 release Previous Rx's Medication Instructions Recorded aspirin 81 mg tablet,delayed 81 mg PO DAILY #90 tabs 07/29/21 release amlodipine 2.5 mg tablet 2.5 mg PO BEDTIME #90 tabs 09/13/21 furosemide 40 mg tablet 40 mg PO BID@0900,1800 #60 tabs 11/18/21 magnesium oxide 400 mg (241.3 mg 400 mg PO BID #60 tabs 11/18/21 magnesium) tablet potassium chloride 20 mEq 20 meq PO DAILY #30 tabs 11/18/21 tablet,extended release(part/cryst) Allergies Allergy/AdvReac Type Severity Reaction Status Date / Time prochlorperazine Allergy Severe SEIZURE Verified 07/17/21 18:49 adhesive tape [ADHESIVE TAPE] Allergy Intermediate RASH Verified 07/17/21 18:49 latex [LATEX] Allergy Intermediate RASH Verified 07/17/21 18:49 clarithromycin Allergy Mild RASH Verified 07/17/21 18:49 hydrochlorothiazide Allergy Mild RASH Verified 07/17/21 18:49 metoclopramide [From Reglan] AdvReac Severe SEIZURES Verified 07/17/21 18:49 lactose AdvReac Mild Gastrointestinal Verified 07/22/21 09:56 Upset ibuprofen AdvReac Unknown unknown Verified 07/17/21 18:49 BIAXIN Allergy Intermediate RASH Uncoded 05/19/21 13:30 Review of Systems Review of Systems: Yes all other systems are reviewed and are negative PMFSH Past Medical History Medical History Anemia Arthritis Atherosclerotic cardiovascular disease Atypical pneumonia CAD (coronary artery disease) Chest pain CHF (congestive heart failure) CKD (chronic kidney disease) Depression Diabetes Essential hypertension HLD (hyperlipidemia) HTN (hypertension) Pancreatic cancer Pleural effusion Precordial chest pain Respiratory failure with hypoxia Surgical History History of History of esophagogastroduodenoscopy (EGD) History of hysteroscopy Hx of cholecystectomy Hx of colonoscopy Hx of eye surgery Family History Family History Father Colon cancer Myocardial infarction Mother Uterine cancer Social History Social History Household Members: Children Housing: Apartment Do you presently have visiting nurse or other home services: No Alcohol intake: unknown Patient Tobacco Use Status: Never used Tobacco Second Hand Smoke Exposure: No Advance Directives: No Advance Directives Date on File: 11/17/21 service: No Current occupational status: disabled Sexual orientation: Straight/Heterosexual Gender identity: Female Physical Exam ED Vital Signs: Vital Signs - 24 hr 11/20/21 18:25 11/20/21 22:07 Pulse Rate 91 82 Respiratory Rate 14 12 Blood Pressure 156/81 H 163/73 H Pulse Oximetry 98 99 Oxygen Delivery Method Room Air Room Air BMI result Body Mass Index 21.8 Appearance: Alert. Oriented X3. No acute distress. Pale sick looking patient Eyes: PERRLA, No Nystagmus ENT: Pharynx normal. Oral Mucosa moist Neck: Normal inspection. Neck supple. CVS: Normal heart rate and rhythm. Pulses normal. Respiratory: No respiratory distress. Equal air entry bilateral, no wheezing/rales/rhonchi Abdomen: Soft tender in epigastric area no rebound tenderness or guarding Bowel sounds are present, no mass palpable, no CVA tenderness Skin: Skin warm and dry. Normal skin color. Normal skin turgor. Extremities: 2+ upper and lower extremity edema. No calf tenderness Neuro: Oriented X 3. No motor deficit. No sensory deficit.No cerebellar signs , cranial nerves II-XII intact Medical Decision Making MDM Narrative Medical decision making narrative: Patient has significant anemia hypoproteinemia secondary to pancreatic cancer and poor oral intake will admit patient for diuresis and blood transfusion Lab Data Lab results reviewed: Yes I reviewed the patient's lab results. Result diagrams: 11/20/21 20:25 11/20/21 20:25 Labs: Lab Results 11/20/21 11/20/21 11/20/21 Range/Units 20:25 20:25 20:25 WBC 8.9 (4.8-10.8) X10*3/uL RBC 2.70 L D (4.20-5.50) X10*6/uL Hgb 7.5 L D (12.0-16.0) g/dl Hct 21.6 L D (37.0-47.0) % MCV 80.0 (80.0-98.0) fL MCH 27.8 (27.0-33.0) pg MCHC 34.7 (31.0-35.0) g/dl RDW 15.9 (11.0-16.0) % Plt Count 169 D (160-400) X10*3/uL MPV 10.8 (9.4-12.3) fL Immature Gran % (Auto) 0.6 H (0.0-0.4) % Neut % (Auto) 82.8 H (45-73) % Lymph % (Auto) 10.0 L (20-40) % [place] % (Auto) 6.5 (2-11) % Eos % (Auto) 0.0 (0-4) % Baso % (Auto) 0.1 (0-2) % Lymph # (Auto) 0.9 L (1.2-4.9) X10*3/uL [place] # (Auto) 0.6 (0.1-1.2) X10*3/uL Eos # (Auto) 0.0 (0.0-0.4) X10*3/uL Baso # (Auto) 0.0 (0.0-0.2) X10*3/uL Abs Immat Gran (auto) 0.05 H (0.00-0.03) X10*3/uL Absolute Neuts (auto) 7.4 (2.0-8.3) x10*3/uL Absolute Nucleated RBC 0.000 (0.0-0.012) X10*3/uL Nucleated RBC % (auto) 0.0 (0.0-0.2) /100WBC PT 14.8 H (10.0-13.1) SEC INR 1.3 H (0.9-1.1) Sodium 135 (135-145) mmol/L Potassium 3.4 (3.3-5.1) mmol/L Chloride 94 L (96-108) mmol/L Carbon Dioxide 27 (22-29) mmol/L Anion Gap 17 (12-20) BUN 28 H (9-16) mg/dL Creatinine 2.61 H (0.5-1.4) mg/dL Estim Creat Clear Calc 12.5 Estimated GFR 18 Random Glucose 164 H (60-115) mg/dL Calcium 7.6 L (8.4-10.2) mg/dL Magnesium 1.5 L (1.6-2.6) mg/dL Total Bilirubin 0.7 (0.0-1.0) mg/dL AST 70 H (5-31) U/L ALT 48 H (0-31) U/L Alkaline Phosphatase 118 H (39-117) U/L B-Natriuretic Peptide (<100) pg/mL Total Protein 4.7 L (6.5-8.0) g/dL Albumin 2.3 L (3.5-5.0) g/dL Lipase 5 L (8-78) U/L COVID-19 ([facility]) (Negative) COVID-19 Clin [facility] Blood Type Antibody Screen Crossmatch 11/20/21 11/20/21 11/20/21 Range/Units 20:25 20:25 20:25 WBC (4.8-10.8) X10*3/uL RBC (4.20-5.50) X10*6/uL Hgb (12.0-16.0) g/dl Hct (37.0-47.0) % MCV (80.0-98.0) fL MCH (27.0-33.0) pg MCHC (31.0-35.0) g/dl RDW (11.0-16.0) % Plt Count (160-400) X10*3/uL MPV (9.4-12.3) fL Immature Gran % (Auto) (0.0-0.4) % Neut % (Auto) (45-73) % Lymph % (Auto) (20-40) % [place] % (Auto) (2-11) % Eos % (Auto) (0-4) % Baso % (Auto) (0-2) % Lymph # (Auto) (1.2-4.9) X10*3/uL [place] # (Auto) (0.1-1.2) X10*3/uL Eos # (Auto) (0.0-0.4) X10*3/uL Baso # (Auto) (0.0-0.2) X10*3/uL Abs Immat Gran (auto) (0.00-0.03) X10*3/uL Absolute Neuts (auto) (2.0-8.3) x10*3/uL Absolute Nucleated RBC (0.0-0.012) X10*3/uL Nucleated RBC % (auto) (0.0-0.2) /100WBC PT (10.0-13.1) SEC INR (0.9-1.1) Sodium (135-145) mmol/L Potassium (3.3-5.1) mmol/L Chloride (96-108) mmol/L Carbon Dioxide (22-29) mmol/L Anion Gap (12-20) BUN (9-16) mg/dL Creatinine (0.5-1.4) mg/dL Estim Creat Clear Calc Estimated GFR Random Glucose (60-115) mg/dL Calcium (8.4-10.2) mg/dL Magnesium (1.6-2.6) mg/dL Total Bilirubin (0.0-1.0) mg/dL AST (5-31) U/L ALT (0-31) U/L Alkaline Phosphatase (39-117) U/L B-Natriuretic Peptide 707 H (<100) pg/mL Total Protein (6.5-8.0) g/dL Albumin (3.5-5.0) g/dL Lipase (8-78) U/L COVID-19 ([facility]LENE) Negative (Negative) COVID-19 Clin Com See Note Blood Type A Positive Antibody Screen NEGATIVE Crossmatch See Detail Discharge Plan Discharge Clinical Impression: Pancreatic cancer, Adult failure to thrive, Severe anemia, Hypoproteinemia Patient Disposition: Admitted As Inpatient
[2021-11-20 20:32] LABS: MANUAL DIFF FLAG NO
[2021-11-20 20:34] LABS: Basophils Percent Auto 0.1 % (0-2); Hematocrit 21.6 % (37.0-47.0); Hemoglobin 7.5 g/dl (12.0-16.0); Imm Gran Abs Auto 0.05 X10*3/uL (0.00-0.03); Imm Gran Pct Auto 0.6 % (0.0-0.4); Lymphocytes Absolute Auto 0.9 X10*3/uL (1.2-4.9); Mean Corpuscular HGB Conc 34.7 g/dl (31.0-35.0); Mean Corpuscular Hemoglobin 27.8 pg (27.0-33.0); Mean Platelet Volume 10.8 fL (9.4-12.3); Monocytes Absolute Auto 0.6 X10*3/uL (0.1-1.2); Monocytes Percent Auto 6.5 % (2-11); Neutrophils Absolute Auto 7.4 x10*3/uL (2.0-8.3); Neutrophils Percent Auto 82.8 % (45-73); Platelet Count 169 X10*3/uL (160-400); Red Cell Distribution Width 15.9 % (11.0-16.0); White Blood Count 8.9 X10*3/uL (4.8-10.8)
[2021-11-20 20:49] LABS: Alanine Aminotransferase 48 U/L (0-31); Albumin Level 2.3 g/dL (3.5-5.0); Alkaline Phosphatase 118 U/L (39-117); Anion Gap 17 (12-20); Aspartate Amino Transferase 70 U/L (5-31); Bilirubin Total 0.7 mg/dL (0.0-1.0); Blood Urea Nitrogen 28 mg/dL (9-16); Calcium 7.6 mg/dL (8.4-10.2); Carbon Dioxide 27 mmol/L (22-29); Chloride 94 mmol/L (96-108); Creatinine Clr Calc Pharmacy 12.5; Estimated Glomerular Filt Rate 18; Glucose Random 164 mg/dL (60-115); INTERNATIONAL NORM RATIO 1.3 (0.9-1.1); Lipase 5 U/L (8-78); Magnesium 1.5 mg/dL (1.6-2.6); Potassium 3.4 mmol/L (3.3-5.1); Prothrombin Time 14.8 SEC (10.0-13.1); Sodium 135 mmol/L (135-145); Total Protein 4.7 g/dL (6.5-8.0)
[2021-11-20 20:52] LABS: B Type Natriuretic Peptide 707 pg/mL (<100); COVID-19 Test Negative (Negative); IDNOW Serial# 16C4AD1C
[2021-11-20 22:07] VITALS: BP 163/73; PULSE 82; RESP 12; O2SAT 99
[2021-11-20] MEDS: Furosemide 20 MG/2 ML VIAL IVPUSH (22:10)
[2021-11-20] MEDS: Famotidine/PF 20 MG/2 ML VIAL IVPUSH (22:11)
[2021-11-20 22:43] VITALS: BP 167/78; PULSE 81; RESP 12; TEMP 37.1
[2021-11-20 23:01] VITALS: BP 167/75; PULSE 80; RESP 16; TEMP 36.8
--- NOTE | 2021-11-20 23:04 | PC.NURSE ---
Blood is being infused. This RN stayed with pt for the 15 minutes after initiation of blood transfusion and then reassesses vitals and lung sounds. No major changes to vitals and lung sounds are clear at this time. Pt denies any CP, back pain, or SOB.
[2021-11-20 23:10] VITALS: BP 174/76; PULSE 77; RESP 12; TEMP 37.1; O2SAT 100
[2021-11-21] VITALS (11 sets, daily range): BP systolic 140–181; BP diastolic 71–101; PULSE 78–85; RESP 12–18; TEMP 36.3–37.1; O2SAT 95–100; BMI 21.8
[2021-11-21] MEDS: Albumin Human 25 % 100 ML IV (01:45)
[2021-11-21] MEDS: amLODIPine Besylate 2.5 MG TABLET PO ×2 (01:54→21:41)
--- NOTE | 2021-11-21 03:17 | PM.IMHP ---
History of Present Illness Date of Service: 11/21/21 Chief Complaint: Generalized weakness 81-year-old female with a past medical history of hypertension, hyperlipidemia, diabetes, CAD, CHF, CKD, arthritis, anemia, pancreatic cancer on chemotherapy; presented to the hospital with a chief complaint of generalized weakness. Patient reports that over the past few days he has been having generalized weakness, having dyspnea on exertion, poor oral intake. Reports diffuse abdominal discomfort. Denies any nausea vomiting or diarrhea. Denies any blood in the stool. Mentioned that she was recently started on the chemotherapy and has been having lateral side effects. Patient mentioned that she has been swelling of in her legs. Denies any chest pain or palpitations. Denies any fever chills cough or urinary symptoms. Review of all other systems is negative except mentioned above ER course: Per ER team patient noted to be having pedal edema; noted to have low albumin and low hemoglobin; did not do guaiac test. Patient was given 1 unit of blood transfusion. Admitted to the hospital for further management [facility] Medical History Anemia Arthritis Atherosclerotic cardiovascular disease Atypical pneumonia CAD (coronary artery disease) Chest pain CHF (congestive heart failure) CKD (chronic kidney disease) Depression Diabetes Essential hypertension HLD (hyperlipidemia) HTN (hypertension) Pancreatic cancer Pleural effusion Precordial chest pain Respiratory failure with hypoxia Family History Father Colon cancer Myocardial infarction Mother Uterine cancer Surgical History History of History of esophagogastroduodenoscopy (EGD) History of hysteroscopy Hx of cholecystectomy Hx of colonoscopy Hx of eye surgery Social History Household Members: Children Housing: Apartment Do you presently have visiting nurse or other home services: No Alcohol intake: unknown Patient Tobacco Use Status: Never used Tobacco Second Hand Smoke Exposure: No Advance Directives: No Advance Directives Date on File: 11/17/21 service: No Current occupational status: disabled Sexual orientation: Straight/Heterosexual Gender identity: Female Meds Allergies Allergy/AdvReac Type Severity Reaction Status Date / Time prochlorperazine Allergy Severe SEIZURE Verified 07/17/21 18:49 adhesive tape [ADHESIVE TAPE] Allergy Intermediate RASH Verified 07/17/21 18:49 latex [LATEX] Allergy Intermediate RASH Verified 07/17/21 18:49 clarithromycin Allergy Mild RASH Verified 07/17/21 18:49 hydrochlorothiazide Allergy Mild RASH Verified 07/17/21 18:49 metoclopramide [From Reglan] AdvReac Severe SEIZURES Verified 07/17/21 18:49 lactose AdvReac Mild Gastrointestinal Verified 07/22/21 09:56 Upset ibuprofen AdvReac Unknown unknown Verified 07/17/21 18:49 BIAXIN Allergy Intermediate RASH Uncoded 05/19/21 13:30 Active Medications: Current Medications Acetaminophen (Acetaminophen 325 Mg Tablet) 650 mg PO Q6H PRN PRN Reason: Pain, Mild (Pain Scale 1-3) Amlodipine Besylate (Amlodipine Besylate 2.5 Mg Tablet) 2.5 mg PO BEDTIME [facility]; Protocol Last Admin: 11/21/21 01:54 Dose: 2.5 mg Clonazepam (Clonazepam 0.5 Mg Tablet) 0.5 mg PO BID DAVID Furosemide (Furosemide 40 Mg Tablet) 40 mg PO BIDWM DAVID; Protocol Magnesium Oxide (Magnesium Oxide 400 Mg Tablet) 400 mg PO BID [facility] Melatonin (Melatonin 3 Mg Tablet) 6 mg PO BEDTIME PRN PRN Reason: Insomnia Omeprazole (Omeprazole 20 Mg Capsule.Dr) 20 mg PO BID@0630,1630 [facility] Senna (Sennosides 8.6 Mg Tablet) 17.2 mg PO BEDTIME PRN PRN Reason: Constipation Sertraline HCl (Sertraline Hcl 100 Mg Tablet) 200 mg PO DAILY [facility] Sodium Chloride (0.9 % Sodium Chloride Flush 3 Ml Syringe) 3 ml IVFLUSH QSHIFT [facility] Tolterodine Tartrate (Tolterodine Tartrate La 2 Mg Cap.Er.24h) 2 mg PO DAILY [facility] Home Medications Medication Instructions Recorded Confirmed Last Taken Type clonazepam 0.5 mg tablet 0.5 mg PO BID 07/18/21 11/21/21 11/14/21 History sertraline 100 mg tablet 200 mg PO DAILY 07/18/21 11/21/21 11/14/21 History tolterodine 2 mg capsule,extended 2 mg PO DAILY 07/18/21 11/21/21 11/14/21 History release 24 hr pantoprazole 40 mg tablet,delayed 1 tab PO BID 11/15/21 11/21/21 11/15/21 History release Physical Exam Vital Signs and Narrative: Vital Signs: Last Vital Signs Temp 98.1 F 11/21/21 00:48 Pulse 80 11/21/21 00:48 Resp 12 11/21/21 00:48 BP 176/88 H 11/21/21 00:48 Pulse Ox 100 11/20/21 23:10 O2 Del Method 11/20/21 23:10 BMI result Body Mass Index 21.8 Gen: Appears be in no acute distress HEENT: NCAT, Moist mucosa. Pulmonary: Vesicular breath sounds, fair air entry CVS: Normal S1-S2 Abdomen: BS+, Soft, Nontender Extremities: Warm well perfused; 2+ pitting edema noted Neuro: Alert and awake. Grossly nonfocal Results Labs CBC and Chem 7: 11/20/21 20:25 11/20/21 20:25 Labs: Laboratory Results - last 24 hr 11/20/21 11/20/21 11/20/21 20:25 20:25 20:25 MCV 80.0 MCH 27.8 MCHC 34.7 RDW 15.9 Plt Count 169 D MPV 10.8 Immature Gran % (Auto) 0.6 H Neut % (Auto) 82.8 H Lymph % (Auto) 10.0 L [place] % (Auto) 6.5 Eos % (Auto) 0.0 Baso % (Auto) 0.1 Lymph # (Auto) 0.9 L [place] # (Auto) 0.6 Eos # (Auto) 0.0 Baso # (Auto) 0.0 Abs Immat Gran (auto) 0.05 H Absolute Neuts (auto) 7.4 Absolute Nucleated RBC 0.000 Nucleated RBC % (auto) 0.0 PT 14.8 H INR 1.3 H Anion Gap 17 Estim Creat Clear Calc 12.5 Estimated GFR 18 Random Glucose 164 H Calcium 7.6 L Magnesium 1.5 L Total Bilirubin 0.7 AST 70 H ALT 48 H Alkaline Phosphatase 118 H B-Natriuretic Peptide Total Protein 4.7 L Albumin 2.3 L Lipase 5 L COVID-19 ([facility]LENE) COVID-19 Clin Com Blood Type Antibody Screen Crossmatch 11/20/21 11/20/21 11/20/21 20:25 20:25 20:25 MCV MCH MCHC RDW Plt Count MPV Immature Gran % (Auto) Neut % (Auto) Lymph % (Auto) [place] % (Auto) Eos % (Auto) Baso % (Auto) Lymph # (Auto) [place] # (Auto) Eos # (Auto) Baso # (Auto) Abs Immat Gran (auto) Absolute Neuts (auto) Absolute Nucleated RBC Nucleated RBC % (auto) PT INR Anion Gap Estim Creat Clear Calc Estimated GFR Random Glucose Calcium Magnesium Total Bilirubin AST ALT Alkaline Phosphatase B-Natriuretic Peptide 707 H Total Protein Albumin Lipase COVID-19 (SELENE) Negative COVID-19 Clin Com See Note Blood Type A Positive Antibody Screen NEGATIVE Crossmatch See Detail Imaging Radiologist's Impressions: Impressions Chest X-Ray 11/20/21 19:05 IMPRESSION: New small right pleural effusion. Assessment and Plan (1) Adult failure to thrive: Status: Acute Plan 81-year-old female with a past medical history of hypertension, hyperlipidemia, diabetes, CAD, CHF, CKD, arthritis, anemia, pancreatic cancer on chemotherapy; presented to the hospital with a chief complaint of generalized weakness. Generalized weakness: Likely in setting of poor oral intake/renal failure to thrive/anemia. Will also obtain UA Chest x-ray negative for pneumonia Anasarca: Patient has 2+ pedal edema, mild abdominal swelling. Patient had recent ascitic fluid diagnostic paracentesis-on 11/16/2021. Cytology negative for malignant cells. Patient is on Lasix at home-will continue Noted to a low albumin-give the patient on high-protein diet. Will give albumin IV x1. CHF: Patient echocardiogram in July 2021 showed [id number] LV systolic dysfunction; EF of 40-45% Patient is on Lasix-will continue Adult failure to thrive: Patient reports poor oral intake. Also has prior history of gastroparesis. Supportive care Nutrition consult Anemia: Patient hemoglobin around 9.2 at baseline. Hemoglobin on presentation was 7.5. Patient being transfused 1 unit of blood in the ER. Will obtain stool guaiac test History of pancreatic cancer: Patient was recently started on chemotherapy. Oncology follow-up. Mild transaminitis: Patient has known mild transaminitis from prior admission. Will continue to monitor liver enzymes. DVT prophylaxis: SCD boots. To resume on pharmacologic agent once stool guaiac is negative Code status: Full code Quality Stroke Does the patient have a stroke diagnosis?: No VTE Prior VTE?: No VTE Risk Level:: Medical - moderate - high VTE Device Contraindication: N/A - Device Ordered VTE Drug Contraindication: Treatment Not Indicated
--- NOTE | 2021-11-21 03:48 | PC.NURSE ---
Pt was hypertensive after receiving the unit of rbc. After blood infusion was complete, pt was due to receive two doses of albumin. First dose of albumin was given along with a 2.5 mg dose of amlodipine. BP rechecked after first dose of albumin was given and found to have increased. Hospitalist notified and plan is to hold albumin at this time and then recheck BP in one hour.
[2021-11-21 04:23] LABS: OBS Int Ctl Valid YES; OBS1 NEGATIVE (NEGATIVE)
--- NOTE | 2021-11-21 05:15 | PC.NURSE ---
Assumed pt care at approx 0415. Pt trending hypertensive since infusion of 1 unit of blood and 1 dose of albumin. Reported findings to MD, Ordered via telephone to hold second dosing of albumin.
[2021-11-21] MEDS: Omeprazole 20 MG CAPSULE.DR PO ×2 (05:42→17:04)
[2021-11-21 06:41] LABS: MANUAL DIFF FLAG NO
[2021-11-21 06:45] LABS: Basophils Percent Auto 0.1 % (0-2); Hemoglobin 10.2 g/dl (12.0-16.0); Imm Gran Pct Auto 1.1 % (0.0-0.4); Lymphocytes Absolute Auto 0.7 X10*3/uL (1.2-4.9); Lymphocytes Percent Auto 7.1 % (20-40); Mean Corpuscular HGB Conc 35.2 g/dl (31.0-35.0); Mean Corpuscular Volume 79.7 fL (80.0-98.0); Mean Platelet Volume 11.6 fL (9.4-12.3); Monocytes Absolute Auto 0.6 X10*3/uL (0.1-1.2); Monocytes Percent Auto 6.7 % (2-11); Neutrophils Absolute Auto 7.8 x10*3/uL (2.0-8.3); Platelet Count 153 X10*3/uL (160-400); Red Blood Count 3.64 X10*6/uL (4.20-5.50); Red Cell Distribution Width 14.7 % (11.0-16.0); White Blood Count 9.2 X10*3/uL (4.8-10.8)
[2021-11-21 07:35] LABS: Anion Gap 16 (12-20); Blood Urea Nitrogen 28 mg/dL (9-16); Calcium 8.1 mg/dL (8.4-10.2); Carbon Dioxide 29 mmol/L (22-29); Chloride 95 mmol/L (96-108); Estimated Glomerular Filt Rate 20; Glucose Random 127 mg/dL (60-115); Sodium 137 mmol/L (135-145)
--- NOTE | 2021-11-21 07:37 | PHA.MEDREC ---
Pharmacy Consult ? Medication Reconciliation Pharmacy has completed the medication reconciliation. Reviewed med rec done by nursing
[2021-11-21] MEDS: Furosemide 40 MG TABLET PO ×2 (07:39→17:04)
[2021-11-21] MEDS: 0.9 % Sodium Chloride Flush 3 ML SYRINGE IVFLUSH ×3 (07:45→21:47)
[2021-11-21] MEDS: Magnesium Oxide 400 MG TABLET PO ×2 (08:19→21:41)
[2021-11-21] MEDS: clonazePAM 0.5 MG TABLET PO ×2 (08:19→21:41)
[2021-11-21] MEDS: Sertraline HCL 100 MG TABLET 200 MG PO (08:19)
[2021-11-21] MEDS: Tolterodine Tartrate LA 2 MG CAP.ER.24H PO (08:19)
[2021-11-21 09:23] LABS: Magnesium 1.4 mg/dL (1.6-2.6)
--- NOTE | 2021-11-21 09:27 | PM.EVENT ---
Patient and family met with hospice intake nurse on Sunday at their home. When they were given all the information about hospice services, they got nervous and refused it once again as they did previously. I was informed by the hospice nurses today that another daughter has called them back saying that they do want hospice services. There seems to be some confusion amongst different family members about goals of care. Patient herself agreed to hospice but some of her children are resisting it as it would mean end of life care. Social service/hospice team may have to meet with all of the involved family members so they can make an informed decision. Thank you.
--- NOTE | 2021-11-21 09:31 | MHC.CM.PN ---
CM spoke with Son/Andrei @ [phone] addressed IMM with him (original to be mailed certified letter to him and a copy to be placed on the chart). Patient lives in an apartment with her Daughter/HCP/Melinda and she uses a walker to assist with mobility. Per Andrei, Patient has difficulty with mobility and likely would benefit from STR. For now, tentative dc plan is home with new VNA(Pending CCA approval) VS STR pending PT eval. [facility] has initiated and will follow for dc planning. Patient has received Moderna/Covid vax X3 and her PCP is DR. Maddison Saini.
--- NOTE | 2021-11-21 09:37 | PC.NURSE ---
Critical Magnesium 1.4 received, Odalys Garcia aware. pt alert and oriented. pt's daughter at her bedside.
[2021-11-21 10:23] LABS: Appearance Urine Clear; Color Urine Yellow; Glucose Urine UA Negative (Negative); Leukocyte Esterase Urine Trace (Negative); Nitrite Urine Negative (Negative); PH 6.5 (5.0-9.0); Specific Gravity - Urine <= 1.005 (1.005-1.025); UMIC TRIGGER UA YES; Urine Blood Small (1+) (Negative); Urine Ketones Negative (Negative); Urine Protein 30 (1+) mg/dL (Neg-Trace)
[2021-11-21] MEDS: Potassium Chloride Packet 20 MEQ PACKET 40 MEQ PO (10:30)
[2021-11-21 10:42] LABS: Bacteria Urine None Seen (None Seen); Hyaline Casts Urine 0-2 /LPF (0-2); RBC Urine 0-2 /HPF (0-2); Squamous Epithelial Cell Urine 0-2 /HPF (0-2); WBC Urine 0-5 /HPF (0-5)
--- NOTE | 2021-11-21 11:00 | PC.NURSE ---
incontinent care done. lg amount of soft loose stool noted. pure wick replaced. pt's son at her bedside.
--- NOTE | 2021-11-21 13:00 | P.PNIM_ITS ---
Subjective Subjective Date of Service: 11/21/21 Review of Systems Follow up FTT Denies chest pain, sob, nausea or vomiting Physical Exam Vital Signs: Vital Signs: Last Vital Signs Temp 98.2 F 11/21/21 12:15 Pulse 85 11/21/21 12:15 Resp 14 11/21/21 12:15 BP 157/85 H 11/21/21 12:15 Pulse Ox 100 11/21/21 12:15 O2 Del Method 11/21/21 12:15 BMI result Body Mass Index 21.8 Appearing in no acute distress lung sounds are clear to auscultation heart regular rate rhythm, clear S1, S2 positive bowel sounds, abdomen is soft, nontender neuro patient is alert x3, no focal deficits Objective Data Active Medications Acetaminophen (Acetaminophen 325 Mg Tablet) 650 mg PO Q6H PRN PRN Reason: Pain, Mild (Pain Scale 1-3) Amlodipine Besylate (Amlodipine Besylate 2.5 Mg Tablet) 2.5 mg PO BEDTIME [facility]; Protocol Last Admin: 11/21/21 01:54 Dose: 2.5 mg Documented By: THANG Clonazepam (Clonazepam 0.5 Mg Tablet) 0.5 mg PO BID [facility] Last Admin: 11/21/21 08:19 Dose: 0.5 mg Documented By: VARGAS Furosemide (Furosemide 40 Mg Tablet) 40 mg PO BIDWM [facility]; Protocol Last Admin: 11/21/21 07:39 Dose: 40 mg Documented By: VARGAS Magnesium Oxide (Magnesium Oxide 400 Mg Tablet) 400 mg PO BID [facility] Last Admin: 11/21/21 08:19 Dose: 400 mg Documented By: VARGAS Melatonin (Melatonin 3 Mg Tablet) 6 mg PO BEDTIME PRN PRN Reason: Insomnia Omeprazole (Omeprazole 20 Mg Capsule.Dr) 20 mg PO BID@0630,1630 [facility] Last Admin: 11/21/21 05:42 Dose: 20 mg Documented By: ALEJANDRO Senna (Sennosides 8.6 Mg Tablet) 17.2 mg PO BEDTIME PRN PRN Reason: Constipation Sertraline HCl (Sertraline Hcl 100 Mg Tablet) 200 mg PO DAILY [facility] Last Admin: 11/21/21 08:19 Dose: 200 mg Documented By: VARGAS Sodium Chloride (0.9 % Sodium Chloride Flush 3 Ml Syringe) 3 ml IVFLUSH QSHIFT [facility] Last Admin: 11/21/21 07:45 Dose: 3 ml Documented By: VARGAS Tolterodine Tartrate (Tolterodine Tartrate La 2 Mg Cap.Er.24h) 2 mg PO DAILY [facility] Last Admin: 11/21/21 08:19 Dose: 2 mg Documented By: VARGAS Labs CBC & Chem 7: 11/21/21 06:19 11/21/21 06:19 Labs: Laboratory Results - last 24 hr 11/20/21 11/20/21 11/20/21 20:25 20:25 20:25 MCV 80.0 MCH 27.8 MCHC 34.7 RDW 15.9 Plt Count 169 D MPV 10.8 Immature Gran % (Auto) 0.6 H Neut % (Auto) 82.8 H Lymph % (Auto) 10.0 L [place] % (Auto) 6.5 Eos % (Auto) 0.0 Baso % (Auto) 0.1 Lymph # (Auto) 0.9 L [place] # (Auto) 0.6 Eos # (Auto) 0.0 Baso # (Auto) 0.0 Abs Immat Gran (auto) 0.05 H Absolute Neuts (auto) 7.4 Absolute Nucleated RBC 0.000 Nucleated RBC % (auto) 0.0 PT 14.8 H INR 1.3 H Anion Gap 17 Estim Creat Clear Calc 12.5 Estimated GFR 18 Random Glucose 164 H Calcium 7.6 L Magnesium 1.5 L Total Bilirubin 0.7 AST 70 H ALT 48 H Alkaline Phosphatase 118 H B-Natriuretic Peptide Total Protein 4.7 L Albumin 2.3 L Lipase 5 L Urine Color Urine Appearance Urine pH Ur Specific [place] Urine Protein Urine Glucose (UA) Urine Ketones Urine Blood Urine Nitrite Ur Leukocyte Esterase Urine RBC Urine WBC Ur Squamous Epith Cells Urine Bacteria Hyaline Casts Stool Occult Blood COVID-19 ([facility]) COVID-19 Clin Com Blood Type Antibody Screen Crossmatch 11/20/21 11/20/21 11/20/21 20:25 20:25 20:25 MCV MCH MCHC RDW Plt Count MPV Immature Gran % (Auto) Neut % (Auto) Lymph % (Auto) [place] % (Auto) Eos % (Auto) Baso % (Auto) Lymph # (Auto) [place] # (Auto) Eos # (Auto) Baso # (Auto) Abs Immat Gran (auto) Absolute Neuts (auto) Absolute Nucleated RBC Nucleated RBC % (auto) PT INR Anion Gap Estim Creat Clear Calc Estimated GFR Random Glucose Calcium Magnesium Total Bilirubin AST ALT Alkaline Phosphatase B-Natriuretic Peptide 707 H Total Protein Albumin Lipase Urine Color Urine Appearance Urine pH Ur Specific [place] Urine Protein Urine Glucose (UA) Urine Ketones Urine Blood Urine Nitrite Ur Leukocyte Esterase Urine RBC Urine WBC Ur Squamous Epith Cells Urine Bacteria Hyaline Casts Stool Occult Blood COVID-19 ([facility]) Negative COVID-19 Clin Com See Note Blood Type A Positive Antibody Screen NEGATIVE Crossmatch See Detail 11/21/21 11/21/21 11/21/21 04:15 06:19 06:19 MCV 79.7 L MCH 28.0 MCHC 35.2 H RDW 14.7 Plt Count 153 L MPV 11.6 Immature Gran % (Auto) 1.1 H Neut % (Auto) 85.0 H Lymph % (Auto) 7.1 L [place] % (Auto) 6.7 Eos % (Auto) 0.0 Baso % (Auto) 0.1 Lymph # (Auto) 0.7 L [place] # (Auto) 0.6 Eos # (Auto) 0.0 Baso # (Auto) 0.0 Abs Immat Gran (auto) 0.10 H Absolute Neuts (auto) 7.8 Absolute Nucleated RBC 0.000 Nucleated RBC % (auto) 0.0 PT INR Anion Gap 16 Estim Creat Clear Calc 14.0 Estimated GFR 20 Random Glucose 127 H Calcium 8.1 L D Magnesium 1.4 L* Total Bilirubin AST ALT Alkaline Phosphatase B-Natriuretic Peptide Total Protein Albumin Lipase Urine Color Urine Appearance Urine pH Ur Specific [place] Urine Protein Urine Glucose (UA) Urine Ketones Urine Blood Urine Nitrite Ur Leukocyte Esterase Urine RBC Urine WBC Ur Squamous Epith Cells Urine Bacteria Hyaline Casts Stool Occult Blood NEGATIVE COVID-19 ([facility]) COVID-19 [facility] Com Blood Type Antibody Screen Crossmatch 11/21/21 09:34 MCV MCH MCHC RDW Plt Count MPV Immature Gran % (Auto) Neut % (Auto) Lymph % (Auto) [place] % (Auto) Eos % (Auto) Baso % (Auto) Lymph # (Auto) [place] # (Auto) Eos # (Auto) Baso # (Auto) Abs Immat Gran (auto) Absolute Neuts (auto) Absolute Nucleated RBC Nucleated RBC % (auto) PT INR Anion Gap Estim Creat Clear Calc Estimated GFR Random Glucose Calcium Magnesium Total Bilirubin AST ALT Alkaline Phosphatase B-Natriuretic Peptide Total Protein Albumin Lipase Urine Color Yellow Urine Appearance Clear Urine pH 6.5 Ur Specific [place] <= 1.005 Urine Protein 30 (1+) H Urine Glucose (UA) Negative Urine Ketones Negative Urine Blood Small (1+) H Urine Nitrite Negative Ur Leukocyte Esterase Trace H Urine RBC 0-2 Urine WBC 0-5 Ur Squamous Epith Cells 0-2 Urine Bacteria None Seen Hyaline Casts 0-2 Stool Occult Blood COVID-19 ([facility]) COVID-19 Clin Com Blood Type Antibody Screen Crossmatch Assessment and Plan (1) Adult failure to thrive: Status: Acute Plan 81-year-old female with a past medical history of hypertension, hyperlipidemia, diabetes, CAD, CHF, CKD, arthritis, anemia, pancreatic cancer on chemotherapy; presented to the hospital with a chief complaint of generalized weakness.? Generalized weakness with adult failure to thrive Likely in setting of poor oral intake/renal failure to thrive/anemia.? UA only mildly positive, follow cx Chest x-ray negative for pneumonia Physical therapy evaluation s/p recent nutrition consult from previous admission Anasarca, acute Patient has 2+ pedal edema, mild abdominal swelling.? Patient had recent ascitic fluid diagnostic paracentesis-on 11/16/2021.? Cytology negative for malignant cells. Patient is on Lasix at home-will continue Noted to a low albumin-give the patient on high-protein diet.? Will give albumin IV x1. Hypomagnesemia Replete Heart failure with reduced ejection fraction. No exacerbation Patient echocardiogram in July 2021 showed [id number] LV systolic dysfunction; EF of 40-45% Patient is on Lasix-will continue Anemia, non blood loss. Likely secondary to chemotherapy Patient hemoglobin around 9.2 at baseline.? Hemoglobin on presentation was 7.5.? Patient being transfused 1 unit of blood in the ER.? occult stool negative History of pancreatic cancer Patient was recently started on chemotherapy.? outpatient oncology follow-up Mild transaminitis Patient has known mild transaminitis from prior admission.? follow LFTs moderate protein calorie malnutrition Add ensure to diet, high protein diet DVT prophylaxis:? SCD boots.? To resume on pharmacologic agent once stool guaiac is negative Code status: Full code Attending Dr. Greenberg Disposition. Likely plan for short-term rehab when medically clear Continue hospitalization for treatment of anasarca, anemia requiring blood tra nsfusions and monitoring of CBC Quality Stroke Does the patient have a stroke diagnosis?: No VTE Prior VTE?: No VTE Risk Level:: Medical - moderate - high VTE Device Contraindication: N/A - Device Ordered VTE Drug Contraindication: Treatment Not Indicated
--- NOTE | 2021-11-21 13:22 | MHC.CLN ---
NUTRITION CONSULT FOR FAILURE TO THRIVE. VISITED PATIENT DURING PRIOR ADMISSION 11/18. HAD ENSURE TID. CHANGING SUPPLEMENT FROM ENSURE CLEAR TID (720 KCALS, 24 G PROTEIN) TO ENSURE TID (1050 KCALS, 60 G PROTEIN). DIET=REGULAR, 1500 ML FLUID RESTRICTION, ENSURE TID. PATIENT DISCHARGED 11/18; TO ED 11/20. SEE CLINICAL NUTRITION ASSESSMENT 11/21/21.
[2021-11-21] MEDS: Magnesium Sulfate/H2O 2 GM/50 ML PIGGYBACK IV (13:42)
[2021-11-21 13:51] LABS: Glucose, Whole Blood 142 mg/dL (60-115)
--- NOTE | 2021-11-21 17:20 | PC.NURSE ---
Assumed care at 1500- Patient alert and oriented, VSS. Patient denies pain, SOB. Per family poor appetite, did not eat lunch. Lung sounds diminished. Anasarca noted bilateral legs. Incontinent of urine and stool. Repositioned. All needs met.
--- NOTE | 2021-11-21 20:32 | PC.NURSE ---
Assumed care of patient at 1900, patient alert and oriented, offers no complaints at this time. Port to right chest intact, vss. Report to med surge RN given. Awaiting transport at this time.
[2021-11-22 03:31] VITALS: BP 186/88; PULSE 85; RESP 18; TEMP 36.6; O2SAT 98
[2021-11-22] MEDS: Omeprazole 20 MG CAPSULE.DR PO ×2 (05:39→15:46)
[2021-11-22 06:55] LABS: Basophils Percent Auto 0.1 % (0-2); Hematocrit 32.9 % (37.0-47.0); Hemoglobin 11.6 g/dl (12.0-16.0); Imm Gran Abs Auto 0.05 X10*3/uL (0.00-0.03); Imm Gran Pct Auto 0.6 % (0.0-0.4); Lymphocytes Absolute Auto 0.7 X10*3/uL (1.2-4.9); Lymphocytes Percent Auto 8.2 % (20-40); MANUAL DIFF FLAG SCAN; Mean Corpuscular HGB Conc 35.3 g/dl (31.0-35.0); Mean Corpuscular Hemoglobin 28.2 pg (27.0-33.0); Mean Corpuscular Volume 79.9 fL (80.0-98.0); Monocytes Absolute Auto 0.5 X10*3/uL (0.1-1.2); Monocytes Percent Auto 5.8 % (2-11); Neutrophils Absolute Auto 7.7 x10*3/uL (2.0-8.3); Neutrophils Percent Auto 85.3 % (45-73); PLT CLUMP 1; Red Blood Count 4.12 X10*6/uL (4.20-5.50); Red Cell Distribution Width 15.4 % (11.0-16.0); SCAN SMEAR FLAG 1
[2021-11-22 07:27] VITALS: BP 168/99; PULSE 81; RESP 20; TEMP 36.5; O2SAT 100
[2021-11-22 07:37] LABS: SLIDE REVIEW VERIFIED
--- NOTE | 2021-11-22 07:39 | P.CDIC_ITS ---
CDI Concurrent Query Documentation Clarification: PHYSICIAN'S DOCUMENTATION REQUEST Date of Query: 11/22/21 0739 Patient Name: Barbara Garcia Admit Date: 11/20/21 Dear Doctor, A review of the medical record indicates additional documentation may be needed. Please review below and update the documentation accordingly. Clinical Indicators: Per provider notes and H&P there is a documented diagnosis of CKD. Is there further specificity that correlates with the findings below: Risk Factors/Clinical Indicators/Treatments Per provider note on 11/21: renal failure to thrive LABS: Estimated GFR on 11/20 Creatnine on 11/21.33 BUN on 11/21 Please clarify which of the following accurately represents the patient's renal status: * CKD, please provide stage - see criteria * ESRD - CKD V now requiring permanent dialysis and/or transplant * Other (please specify) * Unable to determine Stages of Chronic Kidney Disease* Level Description GFR G1 Normal or High > 90 G2 Mildly decreased 60 ? 89 G3a Mildly to moderately decreased 45 ? 59 G3b Moderately to severely decreased 30 - 44 G4 Severely decreased 15 ? 29 G5 Kidney failure < 15 *Source: Kidney Disease: Improving Global Outcomes (KDIGO) 2012 Use of terms such as suspected, likely, concern for, or probable (associated with a specific diagnosis that is being evaluated, monitored, or treated as if it exists) are acceptable and can be coded in the inpatient setting, when documented at the time of discharge. Thank you, Paloma Zhu MS, RN, CCRN Extension: [phone] Please use your independent medical judgment in providing your response. THIS QUERY IS PART OF THE PERMANENT MEDICAL RECORD Other Diagnosis: CKD4
[2021-11-22 07:55] LABS: Alanine Aminotransferase 34 U/L (0-31); Albumin Level 2.2 g/dL (3.5-5.0); Alkaline Phosphatase 109 U/L (39-117); Anion Gap 19 (12-20); Aspartate Amino Transferase 52 U/L (5-31); Bilirubin Direct 0.5 mg/dL (0.0-0.5); Bilirubin Total 1.2 mg/dL (0.0-1.0); Blood Urea Nitrogen 30 mg/dL (9-16); Calcium 7.6 mg/dL (8.4-10.2); Carbon Dioxide 22 mmol/L (22-29); Chloride 99 mmol/L (96-108); Estimated Glomerular Filt Rate 22; Glucose Random 149 mg/dL (60-115); Magnesium 1.6 mg/dL (1.6-2.6); Potassium 3.9 mmol/L (3.3-5.1); Sodium 136 mmol/L (135-145); Total Protein 4.5 g/dL (6.5-8.0)
[2021-11-22] MEDS: clonazePAM 0.5 MG TABLET PO ×2 (08:31→19:38)
[2021-11-22] MEDS: Tolterodine Tartrate LA 2 MG CAP.ER.24H PO (08:31)
[2021-11-22] MEDS: Furosemide 40 MG TABLET PO ×2 (08:31→16:54)
[2021-11-22] MEDS: Sertraline HCL 100 MG TABLET 200 MG PO (08:31)
[2021-11-22] MEDS: Magnesium Oxide 400 MG TABLET PO ×2 (08:31→19:38)
[2021-11-22] MEDS: 0.9 % Sodium Chloride Flush 3 ML SYRINGE IVFLUSH ×3 (08:32→19:38)
[2021-11-22 11:10] VITALS: BP 140/79; PULSE 85; RESP 20; TEMP 36.3; O2SAT 99
--- NOTE | 2021-11-22 14:08 | P.PNIM_ITS ---
Subjective Subjective Date of Service: 11/22/21 Review of Systems Follow up FTT Denies chest pain, sob, nausea or vomiting Physical Exam Vital Signs: Vital Signs: Last Vital Signs Temp 97.4 F 11/22/21 11:10 Pulse 85 11/22/21 11:10 Resp 20 11/22/21 11:10 BP 140/79 H 11/22/21 11:10 Pulse Ox 99 11/22/21 11:10 O2 Del Method 11/22/21 11:10 BMI result Body Mass Index 21.8 Appearing in no acute distress lung sounds are clear to auscultation heart regular rate rhythm, clear S1, S2 positive bowel sounds, abdomen is soft, nontender neuro patient is alert x3, no focal deficits Objective Data Active Medications Acetaminophen (Acetaminophen 325 Mg Tablet) 650 mg PO Q6H PRN PRN Reason: Pain, Mild (Pain Scale 1-3) Amlodipine Besylate (Amlodipine Besylate 2.5 Mg Tablet) 2.5 mg PO BEDTIME [facility]; Protocol Last Admin: 11/21/21 21:41 Dose: 2.5 mg Documented By: TACOS Clonazepam (Clonazepam 0.5 Mg Tablet) 0.5 mg PO BID [facility] Last Admin: 11/22/21 08:31 Dose: 0.5 mg Documented By: JAYLA Furosemide (Furosemide 40 Mg Tablet) 40 mg PO BIDWM [facility]; Protocol Last Admin: 11/22/21 08:31 Dose: 40 mg Documented By: JAYLA Magnesium Oxide (Magnesium Oxide 400 Mg Tablet) 400 mg PO BID [facility] Last Admin: 11/22/21 08:31 Dose: 400 mg Documented By: JAYLA Melatonin (Melatonin 3 Mg Tablet) 6 mg PO BEDTIME PRN PRN Reason: Insomnia Omeprazole (Omeprazole 20 Mg Capsule.) 20 mg PO BID@0630,1630 [facility] Last Admin: 11/22/21 05:39 Dose: 20 mg Documented By: TACOS Senna (Sennosides 8.6 Mg Tablet) 17.2 mg PO BEDTIME PRN PRN Reason: Constipation Sertraline HCl (Sertraline Hcl 100 Mg Tablet) 200 mg PO DAILY [facility] Last Admin: 11/22/21 08:31 Dose: 200 mg Documented By: JAYLA Sodium Chloride (0.9 % Sodium Chloride Flush 3 Ml Syringe) 3 ml IVFLUSH QSHIFT [facility] Last Admin: 11/22/21 08:32 Dose: 3 ml Documented By: JAYLA Tolterodine Tartrate (Tolterodine Tartrate La 2 Mg Cap.Er.24h) 2 mg PO DAILY [facility] Last Admin: 11/22/21 08:31 Dose: 2 mg Documented By: JAYLA Labs CBC & Chem 7: 11/22/21 05:38 11/22/21 05:38 Labs: Laboratory Results - last 24 hr 11/22/21 11/22/21 11/22/21 05:38 05:38 05:38 MCV 79.9 L MCH 28.2 MCHC 35.3 H RDW 15.4 Plt Count TNP MPV TNP Immature Gran % (Auto) 0.6 H Neut % (Auto) 85.3 H Lymph % (Auto) 8.2 L [place] % (Auto) 5.8 Eos % (Auto) 0.0 Baso % (Auto) 0.1 Lymph # (Auto) 0.7 L [place] # (Auto) 0.5 Eos # (Auto) 0.0 Baso # (Auto) 0.0 Abs Immat Gran (auto) 0.05 H Absolute Neuts (auto) 7.7 Absolute Nucleated RBC 0.000 Nucleated RBC % (auto) 0.0 Smear Tech's Comments VERIFIED Anion Gap 19 Estim Creat Clear Calc 15.0 Estimated GFR 22 Random Glucose 149 H Calcium 7.6 L D Magnesium 1.6 Cancelled Total Bilirubin 1.2 H Cancelled Direct Bilirubin 0.5 Cancelled AST 52 H Cancelled ALT 34 H Cancelled Alkaline Phosphatase 109 Cancelled Total Protein 4.5 L Cancelled Albumin 2.2 L Cancelled Assessment and Plan (1) Adult failure to thrive: Status: Acute Plan 81-year-old female with a past medical history of hypertension, hyperlipidemia, diabetes, CAD, CHF, CKD, arthritis, anemia, pancreatic cancer on chemotherapy; presented to the hospital with a chief complaint of generalized weakness.? Generalized weakness with adult failure to thrive Likely in setting of poor oral intake/renal failure to thrive/anemia.? UA only mildly positive, follow cx Chest x-ray negative for pneumonia Physical therapy evaluation s/p recent nutrition consult from previous admission Anasarca, acute Patient has 2+ pedal edema, mild abdominal swelling.? Patient had recent ascitic fluid diagnostic paracentesis-on 11/16/2021.? Cytology negative for malignant cells. Patient is on Lasix at home-will continue Noted to a low albumin-give the patient on high-protein diet.? s/p 3 doses albumin Hypomagnesemia Replete Heart failure with reduced ejection fraction. No exacerbation Patient echocardiogram in July 2021 showed [id number] LV systolic dysfunction; EF of 40-45% Patient is on Lasix-will continue Anemia, non blood loss. Likely secondary to chemotherapy Patient hemoglobin around 9.2 at baseline.? Hemoglobin on presentation was 7.5.? s/p transfused 1 unit of blood in the ER.? occult stool negative History of pancreatic cancer Patient was recently started on chemotherapy.? outpatient oncology follow-up CKD 4 baseline Mild transaminitis Patient has known mild transaminitis from prior admission.? follow LFTs moderate protein calorie malnutrition Add ensure to diet, high protein diet DVT prophylaxis:? SCD boots.? To resume on pharmacologic agent once stool guaiac is negative Code status: Full code Attending Dr. Greenberg Disposition. Likely plan for short-term rehab when medically clear Continue hospitalization for treatment of anasarca, anemia requiring blood transfusions and monitoring of CBC Quality Stroke Does the patient have a stroke diagnosis?: No VTE Prior VTE?: No VTE Risk Level:: Medical - moderate - high VTE Device Contraindication: N/A - Device Ordered VTE Drug Contraindication: Treatment Not Indicated
[2021-11-22] MEDS: Albumin Human 25 % 100 ML IV ×2 (14:34→15:42)
[2021-11-22 15:20] VITALS: BP 175/82; PULSE 82; RESP 15; TEMP 37.1; O2SAT 99
[2021-11-22] MEDS: amLODIPine Besylate 2.5 MG TABLET PO (19:38)
[2021-11-22] MEDS: Acetaminophen 325 MG TABLET 650 MG PO (19:38)
[2021-11-22] MEDS: Melatonin 3 MG TABLET 6 MG PO (19:38)
[2021-11-22 20:00] VITALS: BP 122/61; PULSE 80; RESP 15; TEMP 37.2; O2SAT 100
[2021-11-22 23:33] VITALS: BP 142/65; PULSE 76; RESP 18; TEMP 36.6; O2SAT 98
[2021-11-23 03:20] VITALS: BP 131/61; PULSE 73; RESP 18; TEMP 36.6; O2SAT 100
[2021-11-23] MEDS: Omeprazole 20 MG CAPSULE.DR PO (05:44)
[2021-11-23 06:27] LABS: Anion Gap 17 (12-20); Blood Urea Nitrogen 28 mg/dL (9-16); Calcium 7.5 mg/dL (8.4-10.2); Carbon Dioxide 25 mmol/L (22-29); Chloride 97 mmol/L (96-108); Creatinine Clr Calc Pharmacy 16.2; Estimated Glomerular Filt Rate 24; Glucose Random 128 mg/dL (60-115); Potassium 3.4 mmol/L (3.3-5.1); Sodium 136 mmol/L (135-145)
[2021-11-23 06:30] LABS: Magnesium 1.6 mg/dL (1.6-2.6)
[2021-11-23 07:35] VITALS: BP 168/83; PULSE 73; RESP 16; TEMP 36.2; O2SAT 100
[2021-11-23 08:34] LABS: Basophils Percent Auto 0.1 % (0-2); Eosinophils Percent Auto 0.1 % (0-4); Hematocrit 30.3 % (37.0-47.0); Hemoglobin 10.4 g/dl (12.0-16.0); Imm Gran Abs Auto 0.04 X10*3/uL (0.00-0.03); Imm Gran Pct Auto 0.5 % (0.0-0.4); Lymphocytes Percent Auto 12.7 % (20-40); Mean Corpuscular HGB Conc 34.3 g/dl (31.0-35.0); Mean Corpuscular Hemoglobin 28.1 pg (27.0-33.0); Mean Corpuscular Volume 81.9 fL (80.0-98.0); Mean Platelet Volume 11.3 fL (9.4-12.3); Monocytes Absolute Auto 0.5 X10*3/uL (0.1-1.2); Monocytes Percent Auto 7.1 % (2-11); Neutrophils Absolute Auto 6.1 x10*3/uL (2.0-8.3); Neutrophils Percent Auto 79.5 % (45-73); Platelet Count 151 X10*3/uL (160-400); Red Cell Distribution Width 15.9 % (11.0-16.0); White Blood Count 7.7 X10*3/uL (4.8-10.8)
[2021-11-23] MEDS: Magnesium Oxide 400 MG TABLET PO (08:42)
[2021-11-23] MEDS: Furosemide 40 MG TABLET PO (08:42)
[2021-11-23] MEDS: Tolterodine Tartrate LA 2 MG CAP.ER.24H PO (08:42)
[2021-11-23] MEDS: clonazePAM 0.5 MG TABLET PO (08:42)
[2021-11-23] MEDS: Sertraline HCL 100 MG TABLET 200 MG PO (08:42)
[2021-11-23] MEDS: 0.9 % Sodium Chloride Flush 3 ML SYRINGE IVFLUSH (08:49)
[2021-11-23 09:48] VITALS: BP 168/83; PULSE 73; O2SAT 100
[2021-11-23 11:23] VITALS: BP 164/87; PULSE 73; RESP 16; TEMP 36.3; O2SAT 99
--- NOTE | 2021-11-23 11:57 | HO.PM.IMPN ---
Subjective Subjective Date of Service: 11/23/21 Interval History: seen and examined this AM with interpreter reports feeling weak and tired denies current abodminal pain Review of Systems negative except HPI Physical Exam Vital Signs: Vital Signs: Last Vital Signs Temp 97.4 F 11/23/21 11:23 Pulse 73 11/23/21 11:23 Resp 16 11/23/21 11:23 BP 164/87 H 11/23/21 11:23 Pulse Ox 99 11/23/21 11:23 O2 Del Method 11/23/21 11:23 BMI result Body Mass Index 21.8 Const: Other: General - chronically ill appearing Cardiovascular - regular rate and rhythm, S1-S2 Lungs - normal respiratory effort, clear to auscultation bilaterally, no wheezing Abdomen - soft, nontender, no rebound or guarding Extremities - no edema bilaterally Neuro - awake and alert, no focal deficits Objective Data Active Medications Acetaminophen (Acetaminophen 325 Mg Tablet) 650 mg PO Q6H PRN PRN Reason: Pain, Mild (Pain Scale 1-3) Last Admin: 11/22/21 19:38 Dose: 650 mg Documented By: DAO Amlodipine Besylate (Amlodipine Besylate 2.5 Mg Tablet) 2.5 mg PO BEDTIME [facility]; Protocol Last Admin: 11/22/21 19:38 Dose: 2.5 mg Documented By: DAO Clonazepam (Clonazepam 0.5 Mg Tablet) 0.5 mg PO BID [facility] Last Admin: 11/23/21 08:42 Dose: 0.5 mg Documented By: JAYLA Furosemide (Furosemide 40 Mg Tablet) 40 mg PO BIDWM [facility]; Protocol Last Admin: 11/23/21 08:42 Dose: 40 mg Documented By: JAYLA Magnesium Oxide (Magnesium Oxide 400 Mg Tablet) 400 mg PO BID [facility] Last Admin: 11/23/21 08:42 Dose: 400 mg Documented By: JAYLA Melatonin (Melatonin 3 Mg Tablet) 6 mg PO BEDTIME PRN PRN Reason: Insomnia Last Admin: 11/22/21 19:38 Dose: 6 mg Documented By: DAO Omeprazole (Omeprazole 20 Mg Capsule.) 20 mg PO BID@0630,1630 [facility] Last Admin: 11/23/21 05:44 Dose: 20 mg Documented By: DAO Senna (Sennosides 8.6 Mg Tablet) 17.2 mg PO BEDTIME PRN PRN Reason: Constipation Sertraline HCl (Sertraline Hcl 100 Mg Tablet) 200 mg PO DAILY [facility] Last Admin: 11/23/21 08:42 Dose: 200 mg Documented By: JAYLA Sodium Chloride (0.9 % Sodium Chloride Flush 3 Ml Syringe) 3 ml IVFLUSH QSHIFT [facility] Last Admin: 11/23/21 08:49 Dose: 3 ml Documented By: JAYLA Tolterodine Tartrate (Tolterodine Tartrate La 2 Mg Cap.Er.24h) 2 mg PO DAILY [facility] Last Admin: 11/23/21 08:42 Dose: 2 mg Documented By: JAYLA Labs CBC & Chem 7: 11/23/21 07:48 11/23/21 05:16 Labs: Laboratory Results - last 24 hr 11/23/21 11/23/21 11/23/21 05:16 05:16 07:48 MCV 81.9 MCH 28.1 MCHC 34.3 RDW 15.9 Plt Count 151 L MPV 11.3 Immature Gran % (Auto) 0.5 H Neut % (Auto) 79.5 H Lymph % (Auto) 12.7 L [place] % (Auto) 7.1 Eos % (Auto) 0.1 Baso % (Auto) 0.1 Lymph # (Auto) 1.0 L [place] # (Auto) 0.5 Eos # (Auto) 0.0 Baso # (Auto) 0.0 Abs Immat Gran (auto) 0.04 H Absolute Neuts (auto) 6.1 Absolute Nucleated RBC 0.000 Nucleated RBC % (auto) 0.0 Anion Gap 17 Estim Creat Clear Calc 16.2 Estimated GFR 24 Random Glucose 128 H Calcium 7.5 L Magnesium 1.6 Assessment and Plan (1) Adult failure to thrive: Status: Acute Plan 81 yo F with a history of pancreatic ca s/p 1 round chemi in June 2021, HFrEF/Ishcmic CMP, CAD, HTN, HLD, GERD, depression who was admitted to [facility] from 11/15/21 to 11/18/21 where she was treated for electrolyte abnormalitis, ascites, ilues and FTT. Hospice care was recommended but patient/family was undecided. She is now admitted for anemia, FTT. 1. Acute anemia, no evidence of blood loss question likely secondary to underlying Ca s/p 1 unit prbc, h/h stable 2. Generalized weakness and adult failure to thrive secondary to underlying Pancreatic Ca s/p chemo x 1 hospice recommended -- family undecided outpatient f/u with oncology; d/w Dr. Mccormick -- no plans for chemo at this time PT eval -- recs STR 3. Anasarca improved PO lasix 4. Hypomagnesemia Repleted 5. Heart failure with reduced ejection fraction.? No exacerbation Patient echocardiogram in July 2021 showed [id number] LV systolic dysfunction; EF of 40-45% lasix 6. CKD 4 baseline 7. moderate protein calorie malnutrition Add ensure to diet, high protein diet? Full Code DVT pptx, subcut heparin Medically stable for discharge from hospital -- discharge when bed available Quality Stroke Does the patient have a stroke diagnosis?: No VTE Prior VTE?: No VTE Risk Level:: Medical - moderate - high VTE Device Contraindication: N/A - Device Ordered VTE Drug Contraindication: Treatment Not Indicated
--- NOTE | 2021-11-23 12:35 | MHC.CLN ---
F/U DIET=REGULAR, 1500 ML FLUID RESTRICTION, ENSURE TID. SUPPLEMENT PROVIDES ADDITIONAL 1050 KCALS, 60 G PROTEIN. INTAKE VARIABLE. PATIENT WITH NON SEVERE (MODERATE) MALNUTRITION. FOLLOW FOR INTAKE AND DIET ORDER.
[2021-11-23] MEDS: Heparin Sodium,Porcine 5,000 UNIT/ML VIAL 5000 UNIT SUBCUT (12:54)
--- NOTE | 2021-11-23 14:13 | MHC.CM.PN ---
Addendum entered by Camille Disla RN 11/23/21 15:09: clarification- pt discharging w/[facility]dee [facility] for alf and [facility] for home PT Original Note: PT MEDICALLY CLEARED FOR D/C, FAMILY DECLINED ONLY BED OFFER OF [facility] AND WILL TAKE PT HOME W/NEW COMFORT PLUS FOR CARE HOME AND HOME PT. FAMILY AT BEDSIDE AND WILL TRANSPORT, NSG/HOSPITALIST AWARE
[2021-11-23 14:17] LABS: Influenza A PCR NEGATIVE (Negative); Influenza B PCR NEGATIVE (Negative); Resp Syncy Virus RNA Qual PCR NEGATIVE (Negative); SARS COV2 PCR INHOUSE NEGATIVE (Negative)
--- NOTE | 2021-11-23 14:17 | P.DS_ITS ---
DS: Providers Provider Date of Service: 11/23/21 Date of admission: 11/20/21 22:16 Primary care physician: Maddison Saini DO Consults: 11/21/21 03:26 Consult to Hematology / Oncology Routine Consulting Provider: Radha Agarwal Reason for consultation: Pancreatic cancer on chemotherapy, anemia DS: Diagnosis Discharge Diagnosis (1) Adult failure to thrive: Status: Acute DS: Summary Hospital Course Hospital Course: HPI from the admission H&P: 81-year-old female with a past medical history of hypertension, hyperlipidemia, diabetes, CAD, CHF, CKD, arthritis, anemia, pancreatic cancer on chemotherapy; presented to the hospital with a chief complaint of generalized weakness.? Patient reports that over the past few days he has been having generalized weakness, having dyspnea on exertion, poor oral intake.? Reports diffuse abdominal discomfort.? Denies any nausea vomiting or diarrhea.? Denies any blood in the stool.? Mentioned that she was recently started on the chemotherapy and has been having lateral side effects.? Patient mentioned that she has been swelling of in her legs. Denies any chest pain or palpitations.? Denies any fever chills cough or urinary symptoms.? Review of all other systems is negative except mentioned above ER course: Per ER team patient noted to be having pedal edema; noted to have low albumin and low hemoglobin; did not do guaiac test.? Patient was given 1 unit of blood transfusion.? Admitted to the hospital for further management Hospital Course by discharge diagnosis: 1. Acute anemia There was no evidence of blood loss, patient was transfuse 1 unit packed red cells with improvement and stabilization in her H&H around 10. Her occult blood testing was negative. Likely cause of her anemia was due to her underlying cancer. 2. Generalized weakness with adult failure to thrive likely secondary to her underlying pancreatic cancer The patient was recommended hospice transition, however after discussion amongst the family members this was declined. Physical therapy saw the patient and the plan was for her to go to short-term rehab where she was accepted. However at the very last minute, the family decided to change their mind and elected for home with services. VNA services for long-term and PT will be ordered. The patient should follow-up with the Oncology Clinic to discuss further treatment options. 3. Fluid overload, and generalized anasarca Chronic and multifactorial. Treated with Lasix as well as IV albumin. High- protein diet has been recommended. 4. Electrolyte abnormalities including low magnesium Repleted as necessary 5. Chronic heart failure with reduced ejection fraction without evidence of acute decompensation Continue diuretics 6. CKD stage 4, Creatinine at baseline 7. Moderate protein calorie malnutrition Nutrition saw the patient and ensure was added. High-protein diet The patient is seen and examined on the day of discharge. She is stable for discharge. However, due to her underlying pancreatic cancer, amongst other chronic health issues, she will remain at high risk for readmission. Time Spent with Patient Time attestation: Total time spent providing and/or coordinating discharge services: Discharge coordination time: Greater than 30 minutes Quality: Safe Use of Opioids Does Pt have an Active Cancer Diagnosis on the Problem List?: No Quality: Stroke Does the patient have a stroke diagnosis?: No Physical Exam Vital Signs: Vital Signs: Last Vital Signs Temp 97.4 F 11/23/21 11:23 Pulse 73 11/23/21 11:23 Resp 16 11/23/21 11:23 BP 164/87 H 11/23/21 11:23 Pulse Ox 99 11/23/21 11:23 O2 Del Method 11/23/21 11:23 BMI result Body Mass Index 21.8 Const: Other: General - chronically ill appearing Cardiovascular - regular rate and rhythm, S1-S2 Lungs - normal respiratory effort, clear to auscultation bilaterally, no wheezing Abdomen - soft, nontender, no rebound or guarding Extremities - no edema bilaterally Neuro - awake and alert, no focal deficits DS: Data Data Completed and Pending Completed studies during hospitalization [Text1]: Procedures Drainage of Left Pleural Cavity, Percutaneous Approach (07/17/21) Drainage of Peritoneal Cavity, Percutaneous Approach (11/15/21) Transfusion of Nonautologous Red Blood Cells into Peripheral Vein, Percutaneous Approach (07/17/21) Labs on day of discharge: Laboratory Results - last 24 hr 11/23/21 11/23/21 11/23/21 05:16 05:16 07:48 WBC 7.7 RBC 3.70 L Hgb 10.4 L Hct 30.3 L MCV 81.9 MCH 28.1 MCHC 34.3 RDW 15.9 Plt Count 151 L MPV 11.3 Immature Gran % (Auto) 0.5 H Neut % (Auto) 79.5 H Lymph % (Auto) 12.7 L [place] % (Auto) 7.1 Eos % (Auto) 0.1 Baso % (Auto) 0.1 Lymph # (Auto) 1.0 L [place] # (Auto) 0.5 Eos # (Auto) 0.0 Baso # (Auto) 0.0 Abs Immat Gran (auto) 0.04 H Absolute Neuts (auto) 6.1 Absolute Nucleated RBC 0.000 Nucleated RBC % (auto) 0.0 Sodium 136 Potassium 3.4 Chloride 97 Carbon Dioxide 25 Anion Gap 17 BUN 28 H Creatinine 2.01 H Estim Creat Clear Calc 16.2 Estimated GFR 24 Random Glucose 128 H Calcium 7.5 L Magnesium 1.6 Discharge Plan Discharge Anticipated Discharge Date/Time: 11/23/21 14:16 Patient Disposition: Home Health Service Discharge Diagnosis: Failure to thrive Anemia Referrals: Maddison Saini DO [Primary Care Provider] - 1 Week Discharge Medications: Continued amlodipine 2.5 mg tablet 2.5 mg PO BEDTIME Qty: 90 1RF tolterodine 2 mg capsule,extended release 24hr 2 mg PO DAILY clonazepam 0.5 mg tablet 0.5 mg PO BID sertraline 100 mg tablet 200 mg PO DAILY aspirin 81 mg tablet,delayed release (DR/EC) 81 mg PO DAILY Qty: 90 3RF pantoprazole 40 mg tablet,delayed release (DR/EC) 1 tab PO BID furosemide 40 mg Tablet 40 mg PO BID@0900,1800 Qty: 60 0RF Protocol: Hold for SBP< HOLD for SBP < : 90 magnesium oxide 400 mg (241.3 mg magnesium) Tablet 400 mg PO BID Qty: 60 0RF potassium chloride 10 mEq tablet extended release 1 tab PO DAILY Discharge Orders: Discharge Order (Routine); Ordered 11/23/21 Ordered By: Jesus Greenberg Diet: Advance to usual diet Activity on Discharge: As tolerated Stand Alone Forms: Patient Portal Discharge page Care Plan Goals: To stay healthy and out of the hospital. Health Concerns: Pancreatic cancer Failure to thrive Plan of Treatment: Follow up with oncology Assessment: see d/c summary
--- NOTE | 2021-11-23 14:23 | W.MHC.F2F ---
Service Date Service Date: 11/23/21 Encounter Date of encounter: 11/23/21 Reasons for Services Signs and symptoms assessed: see below Reason for usp: medication management and teach disease management Reason for physical therapy: home safety and mobility and therapeutic exercises Overseeing Care: Maddison Saini Homebound: Leaving the home is medically contraindicated at this time without the asist of a device and/or another person due th the listed conditions above and below. Reason homebound: unsteady gait / fall risk Homebound supporting statement: Pt with significant weakness secondary to underlying cancer. She is a fall risk. Certification: Based on the above findings, I certify that this patient is confined to the home and needs intermittent usp care, physical therapy and/or speech therapy, or continues to need occupational therapy. The patient is under my care, and I have initiated the establishment of the plan of care. The patient will be followed by a physician who will periodically review the plan of care.
== END 2021-11-23 16:22 | disposition home health service (06) | DRG 812 ==
LOC: HO.ED 19:20 → HO.EDOVER 22:29 → HO.S3 11-21 18:56
PROVIDERS: Nurse Practitioner Acute Care; Admitting Provider Hospitalist; Emergency Provider Internal Medicine; PCP Family Medicine; Visit Provider Family Medicine
DX: D64.81 Anemia due to antineoplastic chemotherapy (principal); C25.9 Malignant neoplasm of pancreas, unspecified; I50.22 Chronic systolic (congestive) heart failure; E44.0 Moderate protein-calorie malnutrition; I13.0 Hypertensive heart and chronic kidney disease with heart failure and stage 1 through stage 4 chronic kidney disease, or unspecified chronic kidney disease; N18.4 Chronic kidney disease, stage 4 (severe); I25.10 Atherosclerotic heart disease of native coronary artery without angina pectoris; R62.7 Adult failure to thrive; E83.42 Hypomagnesemia; D63.0 Anemia in neoplastic disease; M19.90 Unspecified osteoarthritis, unspecified site; Z91.040 Latex allergy status; T45.1X5A Adverse effect of antineoplastic and immunosuppressive drugs, initial encounter; Z68.21 Body mass index [BMI] 21.0-21.9, adult; E11.22 Type 2 diabetes mellitus with diabetic chronic kidney disease; Z88.1 Allergy status to other antibiotic agents; Z88.6 Allergy status to analgesic agent; Z88.8 Allergy status to other drugs, medicaments and biological substances; Z79.82 Long term (current) use of aspirin; Z79.899 Other long term (current) drug therapy
CPT/HCPCS: 0241U; 36415; 36430; 71045; 80048; 80053; 80076; 81001; 82272; 82947; 83690; 83735; 83880; 85025; 85610; 86850; 86900; 86901; 86923; 87635; 96374; 96375; 97162; 99285; J1642; J1940; J3475; P9016; P9047

== ENCOUNTER 2021-12-27 19:49 | Inpatient (IN) | payer OTHER, SELFPAY ==
--- NOTE | 2021-12-27 | ECG_ITS ---
Test Reason : WEAKNESS Blood Pressure : / mmHG Vent. Rate : 070 BPM Atrial Rate : 070 BPM P-R Int : 142 ms QRS Dur : 142 ms QT Int : 496 ms P-R-T Axes : 076 076 074 degrees QTc Int : 535 ms Normal sinus rhythm Incomplete right bundle branch block Low voltage QRS T wave abnormality, consider anterior ischemia Abnormal ECG When compared with ECG of 15-NOV-2021 13:08, Incomplete right bundle branch block has replaced Right bundle branch block Referred By: Generic ED Physician Electronically Signed By:CELESTINO DOMINGUEZ MD
--- NOTE | ~2021-12-27 | XR_ITS ---
EXAMINATION: XR CHEST CLINICAL INFORMATION: Weakness COMPARISON: Chest radiograph 11/20/2021 TECHNIQUE: Frontal view of the chest was obtained. FINDINGS: No significant abnormality is noted involving the heart, lungs, mediastinum, bony thorax or soft tissues. Again seen is a normal sized heart with calcified aorta and degenerative changes in the spine and shoulders. Right chest wall jugular port with tip in SVC. XR/XR chest 1V IMPRESSION: No acute intrathoracic disease
[2021-12-27 19:52] VITALS: BP 137/74; BP 140/84; PULSE 78; PULSE 80; RESP 14; TEMP 36.4; O2SAT 98; O2SAT 99; BMI 19.8
--- NOTE | 2021-12-27 20:44 | ED.WEAKNESS ---
HPI - Weakness General Chief complaint: Weakness Stated complaint: weakness Time Seen by Provider: 12/27/21 20:35 Source: patient and family Mode of arrival: ambulatory Limitations: other (Poor historian ) History of Present Illness HPI Narrative: This is a 81-year-old female history of pancreatic cancer, CHF, MIs, cardiomyopathy, hyperlipidemia, coronary artery disease, irritable bowel syndrome, GERD, gastroparesis, esophageal spasm, adult failure to thrive presenting to the emergency department via EMS with daughter with complaints of progressively worsening weakness for the past week or 2. Vague complaints of substernal CP, non radiating. According to daughter patient lives at home with her upstairs, due to increasing weakness patient has not been able to make it up stairs, has not been able to participate in activities of daily living. The weakness has rapidly been worsening over the past few weeks, daughter reports that she has pancreatic cancer and had a round of chemo last week. Currently patient is a full code, they have been discussing hospice, they are scheduled to see a hospice in[facility] customer service representative tomorrow to further investigate this option. Patient's only concern is weakness. Denies urinary symptoms, fevers, chills, back pain, headache, dizziness, vision changes, shortness of breath. Denies recent sick contacts. Related Data Home Medications Medication Instructions Recorded Confirmed clonazepam 0.5 mg tablet 0.5 mg PO BID 07/18/21 11/21/21 sertraline 100 mg tablet 200 mg PO DAILY 07/18/21 11/21/21 tolterodine 2 mg capsule,extended 2 mg PO DAILY 07/18/21 11/21/21 release 24 hr pantoprazole 40 mg tablet,delayed 1 tab PO BID 11/15/21 11/21/21 release potassium chloride 10 mEq 1 tab PO DAILY 11/21/21 11/21/21 tablet,extended release Previous Rx's Medication Instructions Recorded aspirin 81 mg tablet,delayed 81 mg PO DAILY #90 tabs 07/29/21 release amlodipine 2.5 mg tablet 2.5 mg PO BEDTIME #90 tabs 09/13/21 furosemide 40 mg tablet 40 mg PO BID@0900,1800 #60 tabs 11/18/21 magnesium oxide 400 mg (241.3 mg 400 mg PO BID #60 tabs 11/18/21 magnesium) tablet ondansetron 8 mg disintegrating 8 mg PO Q8H PRN Nausea #30 tabs 10/13/22 tablet dronabinol 2.5 mg capsule 2.5 mg PO BID #60 caps 12/12/21 megestrol 625 mg/5 mL (125 mg/mL) 625 mg (5 mL) PO DAILY #250 mL 12/16/21 oral suspension loperamide 2 mg tablet (Imodium 2 mg PO Q6H PRN Diarrhea #30 tabs 12/22/21 A-D) Allergies Allergy/AdvReac Type Severity Reaction Status Date / Time prochlorperazine Allergy Severe SEIZURE Verified 07/17/21 18:49 adhesive tape [ADHESIVE TAPE] Allergy Intermediate RASH Verified 07/17/21 18:49 latex [LATEX] Allergy Intermediate RASH Verified 07/17/21 18:49 clarithromycin Allergy Mild RASH Verified 07/17/21 18:49 hydrochlorothiazide Allergy Mild RASH Verified 07/17/21 18:49 metoclopramide [From Reglan] AdvReac Severe SEIZURES Verified 07/17/21 18:49 lactose AdvReac Mild Gastrointestinal Verified 07/22/21 09:56 Upset ibuprofen AdvReac Unknown unknown Verified 07/17/21 18:49 BIAXIN Allergy Intermediate RASH Uncoded 05/19/21 13:30 Review of Systems Review of Systems: Constitutional : No Weight loss, No Fever, No Chills, No Fatigue, No Malaise ENT/Mouth : No sore throat, No Rhinorrhea Eyes: No Eye Pain, No Swelling, No Redness Cardiovascular : No Chest Pain, No SOB, No Dyspnea on Exertion, No Orthopnea, No Edema, No Palpitations Respiratory : No Cough, No Sputum, No Wheezing Gastrointestinal : No Nausea, No Vomiting, No Diarrhea, No Constipation, No abdominal Pain, No Hematochezia, No Melena Genitourinary : No Dysuria, No Urinary Frequency, No Hematuria, Musculoskeletal : No joint pain, No Myalgias, No Joint Swelling Skin : No Skin Lesions, No rash Neuro : + Weakness, No Numbness, No Dizziness, No Headache Psych : No Anxiety/Panic, No Depression All other systems reviewed and are negative Yes all other systems are reviewed and are negative [facility] Past Medical History Attestation statement: The following information was validated with the patient. Source: old records reviewed and nursing notes reviewed Medical History Adult failure to thrive Anemia Arthritis Atherosclerotic cardiovascular disease Atypical pneumonia CAD (coronary artery disease) Chest pain CHF (congestive heart failure) CKD (chronic kidney disease) Depression Diabetes Essential hypertension HLD (hyperlipidemia) HTN (hypertension) Hypoproteinemia Pancreatic cancer Pancreatic cancer Pleural effusion Precordial chest pain Respiratory failure with hypoxia Severe anemia Surgical History History of History of esophagogastroduodenoscopy (EGD) History of hysteroscopy Hx of cholecystectomy Hx of colonoscopy Hx of eye surgery Family History Family History Father Colon cancer Myocardial infarction Mother Uterine cancer Social History Social History Household Members: Family Housing: Apartment Do you presently have visiting nurse or other home services: No Alcohol intake: unknown Patient Tobacco Use Status: Never used Tobacco Second Hand Smoke Exposure: No Advance Directives: Yes Advance Directives on File: Yes Advance Directives Date on File: 11/17/21 service: No Current occupational status: disabled Sexual orientation: Straight/Heterosexual Gender identity: Female Physical Exam Vital Signs: Vital Signs: Last Vital Signs Temp 97.5 F 12/27/21 19:52 Pulse 64 12/27/21 23:30 Resp 12 12/27/21 23:30 BP 155/69 H 12/27/21 23:30 Pulse Ox 100 12/27/21 23:30 O2 Del Method 12/27/21 23:30 BMI result Body Mass Index 19.8 vss Appearance: Alert.? Oriented X3.? No acute distress.?Frail appearing. Head: Normocephalic, atraumatic, no step-offs or deformities Eyes: Pupils equal, round and reactive to light.? ENT: Pharynx normal.? Neck: Normal inspection.? Neck supple.? CVS: Normal heart rate and rhythm.? Pulses normal.? Respiratory: No respiratory distress.? Breath sounds normal.? Abdomen: Soft and nontender.? Skin: Skin warm and dry.? Mild jaundice throughout skin and to bilateral scleral.? Normal skin turgor.? Extremities: No lower extremity edema.? No calf ttp. Global weakness Neuro: Oriented X 3.? No motor deficit.? No sensory deficit. CN 2-12 intact . Normal [id number], negative Romberg and pronator drift. Patient with global weakness. Following commands appropriately and answering questions appropriately. Course Reevaluation(s) Reevaluation #1: Patient noted to have mild to moderate hyponatremia 131, patient will be gently hydrated, also noted to be hypokalemic patient has a potassium of 2.6, will give 20 ronaldo equivalents x2 of IV potassium and repeat labs. Patient also noted to have an acute on chronic kidney injury BUN 35, creatinine of 3.10. Again receiving gentle hydration. Patient's troponin markedly elevated 1009.8, will start patient on heparin low dose and give morphine. Patient also noted to markedly elevated BNP 888 however this appears to be around patient's baseline. No need for Lasix at this. Chest x-ray with no signs of CHF, no acute findings. EKG is showing ST depressions in the anterior lateral leads. This case was discussed with my attending who recommends low-dose heparin and reaching out to Cardiology. Time: 22:38 Reevaluation #2: TT to cardiology awaiting response. Time: 10:30 Reevaluation #3: Hospitalist to accept admission at this time for hyponatremia, hypokalemia, acute on chronic kidney injury, suspected NSTEMI. Time: 23:32 Additional Reevaluation(s): Repeat troponin pending. Cardiology call back pending. Hospitalist aware. At this time patient will be admitted to the hospitalist team. Medications Administered Generic Name Dose Route Start Last Admin Trade Name Freq PRN Reason Stop Dose Admin Potassium Chloride 10 meq in 100 mls @ 100 mls/hr 12/27/21 23:15 12/27/21 23:30 Potassium Chloride/H20 IV 12/28/21 03:14 100 mls/hr Q1H DAVID Administration Discontinued Medications Generic Name Dose Route Start Last Admin Trade Name Freq PRN Reason Stop Dose Admin Heparin Sodium (Porcine) 2,800 unit 12/27/21 22:22 12/27/21 22:41 Heparin Sodium,Porcine 5,000 Unit/Ml Vial 60 unit/kg (2800 unit) 12/27/21 22:23 2,800 unit IVPUSH Administration ONCE ONE Sodium Chloride 500 mls @ 500 mls/hr 12/27/21 22:45 12/27/21 22:55 Ns IV 12/27/21 23:44 500 mls/hr .Q1H DAVID Administration Morphine Sulfate 2 mg 12/27/21 22:23 12/27/21 22:40 Morphine Sulfate 2 Mg/Ml Cartridge IVPUSH 12/27/21 22:24 2 mg ONCE ONE Administration Protocol MDM - Weakness MDM Narrative Medical decision making narrative: 2045 81-year-old female presents with progressively worsening weakness over the past few weeks, family reports decreased p.o. intake. Vague complaints of CP Is having difficulties with activities of daily living at home. Poor historian. Physical examination with no focal neuro deficits however global weakness is appreciated, negative Romberg, pronator drift. Normal cerebellar function. Patient following commands. Alert and oriented x4. Regular rate and rhythm. Lungs clear. Abdomen soft nontender nondistended. Skin with mild jaundice. Will rule out infection. Will rule out electrolyte abnormalities. Will obtain a cardiac workup to rule out cardiac etiologies. No SOB or hyypoxia unlikely PE. Unlikely demyelinating disease as this has been progressively worsening since diagnosis of cancer. Plan at this time basic labs, urine, straight cath, troponin, EKG. Will also obtain a BNP. Medical Records Attestation: I reviewed the patient's medical records. Lab Data Attestation: I reviewed the patient's lab results. Result diagrams: 12/27/21 22:40 12/27/21 21:03 Labs: Lab Results 12/27/21 12/27/21 12/27/21 Range/Units 21:03 21:03 21:27 WBC (4.8-10.8) X10*3/uL RBC (4.20-5.50) X10*6/uL Hgb (12.0-16.0) g/dl Hct (37.0-47.0) % MCV (80.0-98.0) fL MCH (27.0-33.0) pg MCHC (31.0-35.0) g/dl RDW (11.0-16.0) % Plt Count (160-400) X10*3/uL MPV (9.4-12.3) fL Immature Gran % (Auto) (0.0-0.4) % Neut % (Auto) (45-73) % Lymph % (Auto) (20-40) % [place] % (Auto) (2-11) % Eos % (Auto) (0-4) % Baso % (Auto) (0-2) % Lymph # (Auto) (1.2-4.9) X10*3/uL [place] # (Auto) (0.1-1.2) X10*3/uL Eos # (Auto) (0.0-0.4) X10*3/uL Baso # (Auto) (0.0-0.2) X10*3/uL Abs Immat Gran (auto) (0.00-0.03) X10*3/uL Absolute Neuts (auto) (2.0-8.3) x10*3/uL Absolute Nucleated RBC (0.0-0.012) X10*3/uL Nucleated RBC % (auto) (0.0-0.2) /100WBC PT (10.0-13.1) SEC INR (0.9-1.1) Sodium 131 L (135-145) mmol/L Potassium 2.6 L D (3.3-5.1) mmol/L Chloride 91 L (96-108) mmol/L Carbon Dioxide 28 (22-29) mmol/L Anion Gap 15 (12-20) BUN 35 H (9-16) mg/dL Creatinine 3.10 H (0.5-1.4) mg/dL Estim Creat Clear Calc 10.5 Estimated GFR 14 Random Glucose 185 H (60-115) mg/dL Calcium 7.3 L (8.4-10.2) mg/dL Total Creatine Kinase 73 (26-140) U/L Troponin I High Sens 1009.8 H* D (<3.5-17.0) ng/L B-Natriuretic Peptide 888 H (<100) pg/mL Lipase 8 (8-78) U/L Urine Color Yellow Urine Appearance Clear Urine pH 5.0 (5.0-9.0) Ur Specific [place] 1.015 (1.005-1.025) Urine Protein Negative (Neg-Trace) mg/dL Urine Glucose (UA) Negative (Negative) mg/dL Urine Ketones Negative (Negative) mg/dL Urine Blood Negative (Negative) Urine Nitrite Negative (Negative) Ur Leukocyte Esterase Negative (Negative) 12/27/21 12/27/21 Range/Units 22:40 22:40 WBC 6.3 (4.8-10.8) X10*3/uL RBC 2.84 L D (4.20-5.50) X10*6/uL Hgb 8.2 L D (12.0-16.0) g/dl Hct 23.9 L D (37.0-47.0) % MCV 84.2 (80.0-98.0) fL MCH 28.9 (27.0-33.0) pg MCHC 34.3 (31.0-35.0) g/dl RDW 15.7 (11.0-16.0) % Plt Count 131 L (160-400) X10*3/uL MPV 12.1 (9.4-12.3) fL Immature Gran % (Auto) 0.5 H (0.0-0.4) % Neut % (Auto) 76.4 H (45-73) % Lymph % (Auto) 17.4 L (20-40) % [place] % (Auto) 5.4 (2-11) % Eos % (Auto) 0.0 (0-4) % Baso % (Auto) 0.3 (0-2) % Lymph # (Auto) 1.1 L (1.2-4.9) X10*3/uL [place] # (Auto) 0.3 (0.1-1.2) X10*3/uL Eos # (Auto) 0.0 (0.0-0.4) X10*3/uL Baso # (Auto) 0.0 (0.0-0.2) X10*3/uL Abs Immat Gran (auto) 0.03 (0.00-0.03) X10*3/uL Absolute Neuts (auto) 4.8 (2.0-8.3) x10*3/uL Absolute Nucleated RBC 0.000 (0.0-0.012) X10*3/uL Nucleated RBC % (auto) 0.0 (0.0-0.2) /100WBC PT 15.2 H (10.0-13.1) SEC INR 1.3 H (0.9-1.1) Sodium (135-145) mmol/L Potassium (3.3-5.1) mmol/L Chloride (96-108) mmol/L Carbon Dioxide (22-29) mmol/L Anion Gap (12-20) BUN (9-16) mg/dL Creatinine (0.5-1.4) mg/dL Estim Creat Clear Calc Estimated GFR Random Glucose (60-115) mg/dL Calcium (8.4-10.2) mg/dL Total Creatine Kinase (26-140) U/L Troponin I High Sens (<3.5-17.0) ng/L B-Natriuretic Peptide (<100) pg/mL Lipase (8-78) U/L Urine Color Urine Appearance Urine pH (5.0-9.0) Ur Specific [place] (1.005-1.025) Urine Protein (Neg-Trace) mg/dL Urine Glucose (UA) (Negative) mg/dL Urine Ketones (Negative) mg/dL Urine Blood (Negative) Urine Nitrite (Negative) Ur Leukocyte Esterase (Negative) ECG Data Attestation: I personally reviewed and interpreted this ECG as follows: ECG interpretation date: 12/27/21 ECG interpretation time: 20:30 Prior ECG tracings: available for review Interpretation: Ventricular rate of 70, VT normal, QRS normal, QT/QTC normal. EKG with ST depressions in the anterior lateral leads concerning for possible ischemia. Compared to previous EKGs these were not present. Discussed with my attending who agrees. Critical Care Time Critical Care Time Critical Care Time: Yes Total Critical Care Time: 45 Attestation: I attest to this time spent taking care of the patient, obtaining history, physical, reviewing labs, imaging, speaking to my attending, speaking to specialist. Discharge Plan Discharge Clinical Impression: Non-ST elevation [place] (NSTEMI), Hyponatremia, Hypokalemia, Acute kidney injury superimposed on chronic kidney disease, Elevated brain natriuretic peptide (BNP) level Patient Disposition: Still a Patient Prescriptions: No Action amlodipine 2.5 mg tablet 2.5 mg PO BEDTIME Qty: 90 1RF megestrol 625 mg/5 mL (125 mg/mL) Suspension 625 mg PO DAILY Qty: 250 3RF loperamide [Imodium A-D] 2 mg Tablet 2 mg PO Q6H PRN (Reason: Diarrhea) Qty: 30 0RF tolterodine 2 mg capsule,extended release 24hr 2 mg PO DAILY clonazepam 0.5 mg tablet 0.5 mg PO BID sertraline 100 mg tablet 200 mg PO DAILY aspirin 81 mg tablet,delayed release (DR/EC) 81 mg PO DAILY Qty: 90 3RF ondansetron 8 mg Tablet,Disintegrating 8 mg PO Q8H PRN (Reason: Nausea) Qty: 30 3RF dronabinol 2.5 mg Capsule 2.5 mg PO BID Qty: 60 5RF Rx Instructions: administer before lunch and evening meal/dinner pantoprazole 40 mg tablet,delayed release (DR/EC) 1 tab PO BID furosemide 40 mg Tablet 40 mg PO BID@0900,1800 Qty: 60 0RF Protocol: Hold for SBP< HOLD for SBP < : 90 magnesium oxide 400 mg (241.3 mg magnesium) Tablet 400 mg PO BID Qty: 60 0RF potassium chloride 10 mEq tablet extended release 1 tab PO DAILY
[2021-12-27 21:00] VITALS: BP 138/62; PULSE 67; RESP 14; O2SAT 99
[2021-12-27 21:34] LABS: Appearance Urine Clear; Color Urine Yellow; Glucose Urine UA Negative (Negative); Leukocyte Esterase Urine Negative (Negative); Nitrite Urine Negative (Negative); Specific Gravity - Urine 1.015 (1.005-1.025); Urine Blood Negative (Negative); Urine Ketones Negative (Negative); Urine Protein Negative (Neg-Trace)
[2021-12-27 21:35] VITALS: BP 148/74; PULSE 67; RESP 13; O2SAT 99
[2021-12-27 22:20] LABS: Anion Gap 15 (12-20); Blood Urea Nitrogen 35 mg/dL (9-16); Calcium 7.3 mg/dL (8.4-10.2); Carbon Dioxide 28 mmol/L (22-29); Chloride 91 mmol/L (96-108); Creatinine Clr Calc Pharmacy 10.5; Estimated Glomerular Filt Rate 14; Glucose Random 185 mg/dL (60-115); Lipase 8 U/L (8-78); Potassium 2.6 mmol/L (3.3-5.1); Sodium 131 mmol/L (135-145)
[2021-12-27 22:21] LABS: B Type Natriuretic Peptide 888 pg/mL (<100); Troponin-I High Sensitivity 1009.8 ng/L (<3.5-17.0)
[2021-12-27 22:27] VITALS: BP 141/67; PULSE 65; RESP 14; O2SAT 99
[2021-12-27] MEDS: Morphine Sulfate 2 MG/ML CARTRIDGE IVPUSH (22:40)
[2021-12-27] MEDS: Heparin Sodium,Porcine 5,000 UNIT/ML VIAL 2800 UNIT IVPUSH (22:41)
[2021-12-27] MEDS: 0.9 % Sodium Chloride 500 ML IV (22:55)
[2021-12-27 22:59] LABS: Basophils Percent Auto 0.3 % (0-2); Hematocrit 23.9 % (37.0-47.0); Hemoglobin 8.2 g/dl (12.0-16.0); Imm Gran Abs Auto 0.03 X10*3/uL (0.00-0.03); Imm Gran Pct Auto 0.5 % (0.0-0.4); Lymphocytes Absolute Auto 1.1 X10*3/uL (1.2-4.9); Lymphocytes Percent Auto 17.4 % (20-40); MANUAL DIFF FLAG NO; Mean Corpuscular HGB Conc 34.3 g/dl (31.0-35.0); Mean Corpuscular Hemoglobin 28.9 pg (27.0-33.0); Mean Corpuscular Volume 84.2 fL (80.0-98.0); Mean Platelet Volume 12.1 fL (9.4-12.3); Monocytes Absolute Auto 0.3 X10*3/uL (0.1-1.2); Monocytes Percent Auto 5.4 % (2-11); Neutrophils Absolute Auto 4.8 x10*3/uL (2.0-8.3); Neutrophils Percent Auto 76.4 % (45-73); Platelet Count 131 X10*3/uL (160-400); Red Blood Count 2.84 X10*6/uL (4.20-5.50); Red Cell Distribution Width 15.7 % (11.0-16.0); White Blood Count 6.3 X10*3/uL (4.8-10.8)
[2021-12-27 23:00] VITALS: BP 150/70; PULSE 65; RESP 12; O2SAT 99
[2021-12-27 23:06] LABS: INTERNATIONAL NORM RATIO 1.3 (0.9-1.1); Prothrombin Time 15.2 SEC (10.0-13.1)
[2021-12-27 23:30] VITALS: BP 155/69; PULSE 64; RESP 12; O2SAT 100
[2021-12-27] MEDS: Potassium Chloride/H20 10 MEQ/100 ML PIGGYBACK 100 MEQ IV (23:30)
[2021-12-28] VITALS (14 sets, daily range): BP systolic 121–172; BP diastolic 71–87; PULSE 62–79; RESP 10–18; TEMP 35.5–36.5; O2SAT 98–100
[2021-12-28] MEDS: Potassium Chloride/H20 10 MEQ/100 ML PIGGYBACK 100 MEQ IV ×3 (00:59→09:39)
[2021-12-28 01:24] LABS: Troponin-I High Sensitivity 1018.9 ng/L (<3.5-17.0)
[2021-12-28 01:36] LABS: Hematocrit 24.1 % (37.0-47.0); Hemoglobin 8.3 g/dl (12.0-16.0); Mean Corpuscular HGB Conc 34.4 g/dl (31.0-35.0); Mean Corpuscular Hemoglobin 28.9 pg (27.0-33.0); Mean Platelet Volume 11.9 fL (9.4-12.3); Platelet Count 135 X10*3/uL (160-400); Red Blood Count 2.87 X10*6/uL (4.20-5.50); Red Cell Distribution Width 15.8 % (11.0-16.0)
[2021-12-28 01:40] LABS: INTERNATIONAL NORM RATIO 1.3 (0.9-1.1); Prothrombin Time 15.4 SEC (10.0-13.1)
[2021-12-28] MEDS: Heparin Sodium,Porcine/1/2NS 25,000 UNIT/250 ML IV.SOLN 5.52 UNIT IVCONT (01:41)
--- NOTE | 2021-12-28 01:50 | P.HPHOSP_ITS ---
History of Present Illness Date of Service: 12/28/21 Chief Complaint: Chest pain This is a 81-year-old female with pertinent history of pancreatic cancer on chemotherapy, ischemic cardiomyopathy with CHFrEF, CAD with h/o NSTEMI, essential hypertension, mixed hyperlipidemia, adult failure to thrive with protein calorie malnutrition was brought to the emergency department via EMS for evaluation of progressive generalized weakness. Patient is a poor historian and history was obtained via chart review and son at bedside. Patient does complain of substernal chest discomfort, nonradiating. Unable to elaborate or provide more details regarding the chest discomfort. As per the son, patient's weakness has been declining over the past 2 weeks. She has had poor p.o. intake over the last week. Lately, patient has not been able to participate in activities of daily living or climb stairs. Patient is currently a full code and family is scheduled to see a hospice food products sales representative soon. In the emergency department, ST depression was seen in anterolateral leads and troponin was found to be elevated. Patient was started on heparin drip Review of Systems Review of Systems: Yes Unobtainable due to mental status PMFSH Medical History Adult failure to thrive Anemia Arthritis Atherosclerotic cardiovascular disease Atypical pneumonia CAD (coronary artery disease) Chest pain CHF (congestive heart failure) CKD (chronic kidney disease) Depression Diabetes Essential hypertension HLD (hyperlipidemia) HTN (hypertension) Hypoproteinemia Pancreatic cancer Pancreatic cancer Pleural effusion Precordial chest pain Respiratory failure with hypoxia Severe anemia Family History Father Colon cancer Myocardial infarction Mother Uterine cancer Surgical History History of History of esophagogastroduodenoscopy (EGD) History of hysteroscopy Hx of cholecystectomy Hx of colonoscopy Hx of eye surgery Social History Household Members: Family Housing: Apartment Do you presently have visiting nurse or other home services: No Alcohol intake: unknown Patient Tobacco Use Status: Never used Tobacco Second Hand Smoke Exposure: No Advance Directives: Yes Advance Directives on File: Yes Advance Directives Date on File: 11/17/21 service: No Current occupational status: disabled Sexual orientation: Straight/Heterosexual Gender identity: Female Meds Allergies Allergy/AdvReac Type Severity Reaction Status Date / Time prochlorperazine Allergy Severe SEIZURE Verified 07/17/21 18:49 adhesive tape [ADHESIVE TAPE] Allergy Intermediate RASH Verified 07/17/21 18:49 latex [LATEX] Allergy Intermediate RASH Verified 07/17/21 18:49 clarithromycin Allergy Mild RASH Verified 07/17/21 18:49 hydrochlorothiazide Allergy Mild RASH Verified 07/17/21 18:49 metoclopramide [From Reglan] AdvReac Severe SEIZURES Verified 07/17/21 18:49 lactose AdvReac Mild Gastrointestinal Verified 07/22/21 09:56 Upset ibuprofen AdvReac Unknown unknown Verified 07/17/21 18:49 BIAXIN Allergy Intermediate RASH Uncoded 05/19/21 13:30 Active Medications: Current Medications Aspirin (Aspirin 81 Mg Tab.Chew) 81 mg PO ONCE ONE Stop: 12/28/21 01:50 Heparin Sodium (Porcine) (Heparin Sodium,Porcine 5,000 Unit/Ml Vial) 1,800 unit 40 unit/kg (1800 unit) IVPUSH PROTOCOL BOLUS PRN; Protocol PRN Reason: 40 unit/kg - Heparin Protocol Heparin Sodium (Porcine) (Heparin Sodium,Porcine 5,000 Unit/Ml Vial) 3,700 unit 80 unit/kg (3700 unit) IVPUSH PROTOCOL BOLUS PRN; Protocol PRN Reason: 80 unit/kg - Heparin Protocol Potassium Chloride (Potassium Chloride/H20) 10 meq in 100 mls @ 100 mls/hr IV Q1H [facility] Stop: 12/28/21 03:14 Last Admin: 12/28/21 00:59 Dose: 100 mls/hr Heparin Sodium/Sodium Chloride (Heparin Sodium,Porcine/1/2ns) 25,000 unit in 250 mls @ 0 mls/hr IVCONT .Q0M DAVID; Protocol Last Admin: 12/28/21 01:41 Dose: 12 units/kg/hr, 5.52 mls/hr Melatonin (Melatonin 3 Mg Tablet) 6 mg PO BEDTIME PRN PRN Reason: Insomnia Nitroglycerin (Nitroglycerin 0.4 Mg Tab.Subl) 0.4 mg SUBLINGUAL Q5MX3 PRN PRN Reason: Chest Pain Ondansetron HCl (Ondansetron Hcl 4 Mg/2 Ml Vial) 4 mg IVPUSH Q8H PRN PRN Reason: Nausea and Vomiting Pharmacy Consult (Consult Rx Perform Med Rec) 1 each MISCELLANE ONCE PRN PRN Reason: Consult order Sodium Chloride (0.9 % Sodium Chloride Flush 3 Ml Syringe) 3 [facility] Medications Medication Instructions Recorded Confirmed Last Taken Type clonazepam 0.5 mg tablet 0.5 mg PO BID 07/18/21 11/21/21 11/14/21 History sertraline 100 mg tablet 200 mg PO DAILY 07/18/21 11/21/21 11/14/21 History tolterodine 2 mg capsule,extended 2 mg PO DAILY 07/18/21 11/21/21 11/14/21 History release 24 hr pantoprazole 40 mg tablet,delayed 1 tab PO BID 11/15/21 11/21/21 11/15/21 History release potassium chloride 10 mEq 1 tab PO DAILY 11/21/21 11/21/21 Unknown History tablet,extended release Physical Exam Vital Signs and Narrative: Vital Signs: Last Vital Signs Temp 97.5 F 12/27/21 19:52 Pulse 66 12/28/21 01:34 Resp 10 L 12/28/21 01:34 BP 151/77 H 12/28/21 01:34 Pulse Ox 99 12/28/21 01:34 O2 Del Method 12/28/21 01:34 BMI result Body Mass Index 19.8 Elderly female lying in bed in no distress Neck supple, no JVD Regular rate and rhythm, S1-S2 heard decreased breath sounds at bases Abdomen soft nontender, no guarding, no rigidity Patient is drowsy and opens eyes to verbal stimulus, not taking part in conversation Psych: drowsy Results Labs CBC and Chem 7: 12/28/21 01:29 12/27/21 21:03 Labs: Laboratory Results - last 24 hr 12/27/21 12/27/21 12/27/21 21:03 21:03 21:27 MCV MCH MCHC RDW Plt Count MPV Immature Gran % (Auto) Neut % (Auto) Lymph % (Auto) Desha % (Auto) Eos % (Auto) Baso % (Auto) Lymph # (Auto) Desha # (Auto) Eos # (Auto) Baso # (Auto) Abs Immat Gran (auto) Absolute Neuts (auto) Absolute Nucleated RBC Nucleated RBC % (auto) PT INR Anion Gap 15 Estim Creat Clear Calc 10.5 Estimated GFR 14 Random Glucose 185 H Calcium 7.3 L Total Creatine Kinase 73 Troponin I High Sens 1009.8 H* D B-Natriuretic Peptide 888 H Lipase 8 Urine Color Yellow Urine Appearance Clear Urine pH 5.0 Ur Specific [place] 1.015 Urine Protein Negative Urine Glucose (UA) Negative Urine Ketones Negative Urine Blood Negative Urine Nitrite Negative Ur Leukocyte Esterase Negative 12/27/21 12/27/21 12/28/21 22:40 22:40 00:51 MCV 84.2 MCH 28.9 MCHC 34.3 RDW 15.7 Plt Count 131 L MPV 12.1 Immature Gran % (Auto) 0.5 H Neut % (Auto) 76.4 H Lymph % (Auto) 17.4 L Desha % (Auto) 5.4 Eos % (Auto) 0.0 Baso % (Auto) 0.3 Lymph # (Auto) 1.1 L Desha # (Auto) 0.3 Eos # (Auto) 0.0 Baso # (Auto) 0.0 Abs Immat Gran (auto) 0.03 Absolute Neuts (auto) 4.8 Absolute Nucleated RBC 0.000 Nucleated RBC % (auto) 0.0 PT 15.2 H INR 1.3 H Anion Gap Estim Creat Clear Calc Estimated GFR Random Glucose Calcium Total Creatine Kinase Troponin I High Sens 1018.9 H* B-Natriuretic Peptide Lipase Urine Color Urine Appearance Urine pH Ur Specific [place] Urine Protein Urine Glucose (UA) Urine Ketones Urine Blood Urine Nitrite Ur Leukocyte Esterase 12/28/21 01:29 MCV 84.0 MCH 28.9 MCHC 34.4 RDW 15.8 Plt Count 135 L MPV 11.9 Immature Gran % (Auto) Neut % (Auto) Lymph % (Auto) Desha % (Auto) Eos % (Auto) Baso % (Auto) Lymph # (Auto) Desha # (Auto) Eos # (Auto) Baso # (Auto) Abs Immat Gran (auto) Absolute Neuts (auto) Absolute Nucleated RBC 0.000 Nucleated RBC % (auto) 0.0 PT INR Anion Gap Estim Creat Clear Calc Estimated GFR Random Glucose Calcium Total Creatine Kinase Troponin I High Sens B-Natriuretic Peptide Lipase Urine Color Urine Appearance Urine pH Ur Specific [place] Urine Protein Urine Glucose (UA) Urine Ketones Urine Blood Urine Nitrite Ur Leukocyte Esterase Imaging Radiologist's Impressions: Impressions Chest X-Ray 12/27/21 21:00 IMPRESSION: No acute intrathoracic disease Assessment and Plan (1) Non-ST elevation PR (NSTEMI): Status: Acute (2) Hyponatremia: Status: Acute (3) Hypokalemia: Status: Acute (4) Acute kidney injury superimposed on chronic kidney disease: Status: Acute (5) Adult failure to thrive: Status: Acute (6) Pancreatic carcinoma: Status: Acute (7) CHF (congestive heart failure): Status: Acute (8) CAD (coronary artery disease): Status: Acute (9) Moderate protein-calorie malnutrition: Status: Acute Plan This is a 81-year-old female with pertinent history of pancreatic cancer on chemotherapy, ischemic cardiomyopathy with CHFrEF, CAD with h/o NSTEMI, essen tial hypertension, mixed hyperlipidemia, adult failure to thrive with protein calorie malnutrition was brought to the emergency department via EMS for evaluation of progressive generalized weakness. #. NSTEMI - will admit patient with classroom monitor. Heparin drip initiated in the ER. Administering dual antiplatelet therapy, high intensity statin and b-duy . Nitroglycerin p.r.n. Cardiology consulted from the ER, appreciate assistance. Patient has previously refused cardiac catheterization. Will administer PRBC to keep hematocrit>30 in this patient with ACS. #. Acute kidney injury on CKD - likely prerenal. Received IV crystalloid resuscitation in the ER, monitor creatinine and urine output. Avoid nephrotoxins #. Hyponatremia, -likely hypovolemic. Monitor with fluid resuscitation #. Hypokalemia - likely due to poor p.o. intake. Repleted. Check magnesium #. Adult failure to thrive with protein calorie malnutrition -added ensure to diet. Prognosis is guarded due to underlying pancreatic cancer. Patient is currently full code but family was scheduled to meet with hospice food products sales representative. Will consult CARE team #. Generalised weakness -due to underlying pancreatic cancer. Consult PT to evaluate and treat. Previously declined STR #. CHFrEF -no decompensation at admission. Monitor. #. NIDDM with hyperglycemia -Initiating SSI #. Chronic normocytic anemia -PRbC transfusion as above. #. Mood disorder -continue home po medications Med rec pending DVT prophylaxis: On Heparin Full code Diet: Cardiac diet with ensure Admit as inpatient and will require two night minimum hospital stay for IV heparin and cardiac monitoring. High risk for decompensation. Prognosis is guarded. Quality Stroke Does the patient have a stroke diagnosis?: No VTE Prior VTE?: No VTE Risk Level:: Medical - moderate - high VTE Device Contraindication: Treatment Not Indicated VTE Drug Contraindication: N/A - Med Ordered
[2021-12-28 01:57] LABS: PTT Heparin Drip > 200.0 SEC (53-77.9)
--- NOTE | 2021-12-28 02:05 | PC.NURSE ---
This RN informed that PTT was 200. Heparin drip stop, MD Adam notified. Will draw hourly PTT per protocol.
[2021-12-28 03:29] LABS: PTT Heparin Drip 58.1 SEC (53-77.9)
[2021-12-28 06:54] LABS: MANUAL DIFF FLAG NO
[2021-12-28 06:57] LABS: Basophils Percent Auto 0.2 % (0-2); Eosinophils Percent Auto 0.2 % (0-4); Hematocrit 30.6 % (37.0-47.0); Hemoglobin 10.3 g/dl (12.0-16.0); Imm Gran Abs Auto 0.03 X10*3/uL (0.00-0.03); Imm Gran Pct Auto 0.3 % (0.0-0.4); Lymphocytes Absolute Auto 1.3 X10*3/uL (1.2-4.9); Lymphocytes Percent Auto 14.2 % (20-40); Mean Corpuscular HGB Conc 33.7 g/dl (31.0-35.0); Mean Corpuscular Hemoglobin 28.1 pg (27.0-33.0); Mean Corpuscular Volume 83.4 fL (80.0-98.0); Monocytes Absolute Auto 0.5 X10*3/uL (0.1-1.2); Monocytes Percent Auto 5.5 % (2-11); Neutrophils Absolute Auto 7.3 x10*3/uL (2.0-8.3); Neutrophils Percent Auto 79.6 % (45-73); Platelet Count 133 X10*3/uL (160-400); Red Blood Count 3.67 X10*6/uL (4.20-5.50); Red Cell Distribution Width 15.5 % (11.0-16.0); White Blood Count 9.1 X10*3/uL (4.8-10.8)
[2021-12-28 07:21] LABS: Alanine Aminotransferase 40 U/L (0-31); Albumin Level 2.2 g/dL (3.5-5.0); Alkaline Phosphatase 131 U/L (39-117); Anion Gap 15 (12-20); Aspartate Amino Transferase 70 U/L (5-31); Bilirubin Total 0.8 mg/dL (0.0-1.0); Blood Urea Nitrogen 32 mg/dL (9-16); Calcium 6.9 mg/dL (8.4-10.2); Carbon Dioxide 28 mmol/L (22-29); Chloride 94 mmol/L (96-108); Creatinine Clr Calc Pharmacy 12.2; Estimated Glomerular Filt Rate 17; Glucose Random 130 mg/dL (60-115); Potassium 2.9 mmol/L (3.3-5.1); Sodium 134 mmol/L (135-145); Total Protein 4.9 g/dL (6.5-8.0)
[2021-12-28 07:34] LABS: Glucose, Whole Blood 123 mg/dL (60-115)
[2021-12-28 07:41] LABS: Magnesium 1.2 mg/dL (1.6-2.6); Troponin-I High Sensitivity 849.3 ng/L (<3.5-17.0)
[2021-12-28] MEDS: Potassium Chloride Packet 20 MEQ PACKET 40 MEQ PO (08:16)
[2021-12-28] MEDS: Metoprolol Tartrate 12.5 MG HALFTAB PO ×2 (08:16→21:07)
[2021-12-28] MEDS: Clopidogrel Bisulfate 75 MG TABLET PO (08:16)
[2021-12-28] MEDS: Atorvastatin Calcium 40 MG TABLET PO (08:17)
[2021-12-28] MEDS: Aspirin 81 MG TAB.CHEW PO (08:17)
[2021-12-28 08:29] LABS: COVID-19 Test Negative (Negative); IDNOW Serial# 16C4AD1C
--- NOTE | 2021-12-28 09:06 | PC.NURSE ---
patient clean and reposition on right side.
[2021-12-28] MEDS: Magnesium Sulfate/H2O 2 GM/50 ML PIGGYBACK IV (09:42)
[2021-12-28 11:48] LABS: PTT Heparin Drip 45.7 SEC (53-77.9)
--- NOTE | 2021-12-28 12:35 | P.CONCA_ITS ---
History of Present Illness History of Present Illness Date of Service: 12/28/21 Requesting physician: Mckenna Henriquez Chief complaint: abnormal troponin and EKG Narrative: 81-year-old female who has history of pancreatic cancer on chemotherapy, ischemic cardiomyopathy with ejection fraction of 40 45% wall motion abnormalities in the inferior wall, hypertension, hyperlipidemia and admission in July 2019 way the NSTEMI. At that time discussion was done about invasive assessment and she declined it. She is now presenting with failure to thrive. I had a discussion with patient's daughter who said that the patient does not eat or drink anything. She has been progressively getting more and more weak. With these symptoms she presented to the emergency department and at some stage also complained of chest discomfort. I have seen the patient with corner trimmer operator and she is denying any chest pains. I think she has vague historian at this point and history is not completely reliable. In any case she had anterior T-wave inversions with prolonged QT interval and significant electrolyte abnormalities along with elevated high sensitivity troponin of 1000. Given elevated troponin and EKG changes and previous concern for ischemic cardiomyopathy, she was started on heparin drip yesterday. Discussing with her today with corner trimmer operator, she is denying any symptoms. Her only concern is that she is weak and her legs are very weak. She is saying she has no appetite as before. As mentioned above she has pancreatic cancer. The daughter told me that she is unable to tolerate chemotherapy. FOR[facility]LY [facility] Past Medical History Medical History Adult failure to thrive Anemia Arthritis Atherosclerotic cardiovascular disease Atypical pneumonia CAD (coronary artery disease) Chest pain CHF (congestive heart failure) CKD (chronic kidney disease) Depression Diabetes Essential hypertension HLD (hyperlipidemia) HTN (hypertension) Hypoproteinemia Pancreatic cancer Pancreatic cancer Pleural effusion Precordial chest pain Respiratory failure with hypoxia Severe anemia Family History Family History Father Colon cancer Myocardial infarction Mother Uterine cancer Surgical History Surgical History History of History of esophagogastroduodenoscopy (EGD) History of hysteroscopy Hx of cholecystectomy Hx of colonoscopy Hx of eye surgery Social History Social History Household Members: Family Housing: Apartment Do you presently have visiting nurse or other home services: No Alcohol intake: unknown Patient Tobacco Use Status: Never used Tobacco Second Hand Smoke Exposure: No Advance Directives: Yes Advance Directives on File: Yes Advance Directives Date on File: 11/17/21 service: No Current occupational status: disabled Sexual orientation: Straight/Heterosexual Gender identity: Female Meds Allergies Allergy/AdvReac Type Severity Reaction Status Date / Time prochlorperazine Allergy Severe SEIZURE Verified 07/17/21 18:49 adhesive tape [ADHESIVE TAPE] Allergy Intermediate RASH Verified 07/17/21 18:49 latex [LATEX] Allergy Intermediate RASH Verified 07/17/21 18:49 clarithromycin Allergy Mild RASH Verified 07/17/21 18:49 hydrochlorothiazide Allergy Mild RASH Verified 07/17/21 18:49 metoclopramide [From Reglan] AdvReac Severe SEIZURES Verified 07/17/21 18:49 lactose AdvReac Mild Gastrointestinal Verified 07/22/21 09:56 Upset ibuprofen AdvReac Unknown unknown Verified 07/17/21 18:49 BIAXIN Allergy Intermediate RASH Uncoded 05/19/21 13:30 Active Medications: Current Medications Dextrose (Dextrose 50 % 25 Gm/50 Ml Syringe) 25 gm IVPUSH Q15M PRN; Protocol PRN Reason: per Hypoglycemia Standing Ord. Glucose (Glucose Gel 15 Gm Gel..Gram.) 15 gm PO Q15M PRN; Protocol PRN Reason: per Hypoglycemia Standing Ord. Heparin Sodium (Porcine) (Heparin Sodium,Porcine 5,000 Unit/Ml Vial) 1,800 unit 40 unit/kg (1800 unit) IVPUSH PROTOCOL BOLUS PRN; Protocol PRN Reason: 40 unit/kg - Heparin Protocol Heparin Sodium (Porcine) (Heparin Sodium,Porcine 5,000 Unit/Ml Vial) 3,700 unit 80 unit/kg (3700 unit) IVPUSH PROTOCOL BOLUS PRN; Protocol PRN Reason: 80 unit/kg - Heparin Protocol Heparin Sodium/Sodium Chloride (Heparin Sodium,Porcine/1/2ns) 25,000 unit in 250 mls @ 0 mls/hr IVCONT .Q0M DAVID; Protocol Last Titration: 12/28/21 06:14 Dose: 8 units/kg/hr, 3.68 mls/hr Insulin Human Lispro (Insulin Lispro 100 Unit/Ml 3 Ml Vial) 0.1 - 10 unit SUBCUT [facility]; Protocol Stop: 12/29/21 02:20 Last Admin: 12/28/21 07:46 Dose: Not Given Melatonin (Melatonin 3 Mg Tablet) 6 mg PO BEDTIME PRN PRN Reason: Insomnia Nitroglycerin (Nitroglycerin 0.4 Mg Tab.Subl) 0.4 mg SUBLINGUAL Q5MX3 PRN PRN Reason: Chest Pain Ondansetron HCl (Ondansetron Hcl 4 Mg/2 Ml Vial) 4 mg IVPUSH Q8H PRN PRN Reason: Nausea and Vomiting Pharmacy Consult (Consult Rx Perform Med Rec) 1 each MISCELLANE ONCE PRN PRN Reason: Consult order Sodium Chloride (0.9 % Sodium Chloride Flush 3 Ml Syringe) 3 ml IVFLUSH [facility] Last Admin: 12/28/21 08:25 Dose: Not Given Home Medications Medication Instructions Recorded Confirmed Last Taken Type clonazepam 0.5 mg tablet 0.5 mg PO BID 07/18/21 12/28/21 11/14/21 History sertraline 100 mg tablet 200 mg PO DAILY 07/18/21 12/28/21 11/14/21 History tolterodine 2 mg capsule,extended 2 mg PO DAILY 07/18/21 12/28/21 11/14/21 History release 24 hr pantoprazole 40 mg tablet,delayed 1 tab PO BID 11/15/21 12/28/21 11/15/21 Hist ory release potassium chloride 10 mEq 1 tab PO DAILY 11/21/21 12/28/21 Unknown History tablet,extended release atorvastatin 40 mg tablet 1 tab PO DAILY 12/28/21 12/28/21 Unknown History furosemide 40 mg tablet 40 mg PO DAILY 12/28/21 12/28/21 Unknown History isosorbide mononitrate 30 mg 1 tab PO QAM 12/28/21 12/28/21 Unknown History tablet,extended release 24 hr ketotifen fumarate 0.025 % (0.035 1 drp ophthalmic (eye) BID PRN itch 12/28/21 12/28/21 Unknown History %) eye drops metoprolol tartrate 25 mg tablet 0.5 tab PO BID 12/28/21 12/28/21 Unknown History Physical Exam Vital Signs: Vital Signs: Last Vital Signs Temp 97.0 F 12/28/21 06:36 Pulse 79 12/28/21 08:14 Resp 14 12/28/21 08:14 BP 160/85 H 12/28/21 08:14 Pulse Ox 99 12/28/21 08:14 O2 Del Method 12/28/21 08:14 O2 Flow Rate 100 12/28/21 06:36 BMI result Body Mass Index 19.8 GENERAL APPEARANCE: in no acute distress, frail. Appears chronically sick. NECK: no carotid bruit, no jugular venous distention. SKIN: no suspicious lesions, warm and dry. HEART: no murmurs, regular rate and rhythm. LUNGS: clear to auscultation bilaterally. ABDOMEN: soft, nontender. EXTREMITIES: no edema. PERIPHERAL PULSES: equal. NEUROLOGIC: No gross deficits, AAO X 3 Objective Labs and Meds Result diagrams: 12/28/21 06:03 12/28/21 06:03 Lab results: Laboratory Results - last 24 hr 12/27/21 12/27/21 12/27/21 21:03 21:03 21:27 WBC RBC Hgb Hct MCV MCH MCHC RDW Plt Count MPV Immature Gran % (Auto) Neut % (Auto) Lymph % (Auto) [place] % (Auto) Eos % (Auto) Baso % (Auto) Lymph # (Auto) [place] # (Auto) Eos # (Auto) Baso # (Auto) Abs Immat Gran (auto) Absolute Neuts (auto) Absolute Nucleated RBC Nucleated RBC % (auto) PT INR aPTT Heparin Protocol Sodium 131 L Potassium 2.6 L D Chloride 91 L Carbon Dioxide 28 Anion Gap 15 BUN 35 H Creatinine 3.10 H Estim Creat Clear Calc 10.5 Estimated GFR 14 POC Glucose Random Glucose 185 H Calcium 7.3 L Magnesium Total Bilirubin AST ALT Alkaline Phosphatase Total Creatine Kinase 73 Troponin I High Sens 1009.8 H* D B-Natriuretic Peptide 888 H Total Protein Albumin Lipase 8 Urine Color Yellow Urine Appearance Clear Urine pH 5.0 Ur Specific [place] 1.015 Urine Protein Negative Urine Glucose (UA) Negative Urine Ketones Negative Urine Blood Negative Urine Nitrite Negative Ur Leukocyte Esterase Negative COVID-19 ([facility]E) COVID-19 Clin Com Blood Type Antibody Screen Crossmatch 12/27/21 12/27/21 12/28/21 22:40 22:40 00:51 WBC 6.3 RBC 2.84 L D Hgb 8.2 L D Hct 23.9 L D MCV 84.2 MCH 28.9 MCHC 34.3 RDW 15.7 Plt Count 131 L MPV 12.1 Immature Gran % (Auto) 0.5 H Neut % (Auto) 76.4 H Lymph % (Auto) 17.4 L [place] % (Auto) 5.4 Eos % (Auto) 0.0 Baso % (Auto) 0.3 Lymph # (Auto) 1.1 L [place] # (Auto) 0.3 Eos # (Auto) 0.0 Baso # (Auto) 0.0 Abs Immat Gran (auto) 0.03 Absolute Neuts (auto) 4.8 Absolute Nucleated RBC 0.000 Nucleated RBC % (auto) 0.0 PT 15.2 H INR 1.3 H aPTT Heparin Protocol Sodium Potassium Chloride Carbon Dioxide Anion Gap BUN Creatinine Estim Creat Clear Calc Estimated GFR POC Glucose Random Glucose Calcium Magnesium Total Bilirubin AST ALT Alkaline Phosphatase Total Creatine Kinase Troponin I High Sens 1018.9 H* B-Natriuretic Peptide Total Protein Albumin Lipase Urine Color Urine Appearance Urine pH Ur Specific [place] Urine Protein Urine Glucose (UA) Urine Ketones Urine Blood Urine Nitrite Ur Leukocyte Esterase COVID-19 ([facility]E) COVID-19 Clin Com Blood Type Antibody Screen Crossmatch 12/28/21 12/28/21 12/28/21 01:29 01:29 02:01 WBC 7.0 RBC 2.87 L Hgb 8.3 L Hct 24.1 L MCV 84.0 MCH 28.9 MCHC 34.4 RDW 15.8 Plt Count 135 L MPV 11.9 Immature Gran % (Auto) Neut % (Auto) Lymph % (Auto) [place] % (Auto) Eos % (Auto) Baso % (Auto) Lymph # (Auto) [place] # (Auto) Eos # (Auto) Baso # (Auto) Abs Immat Gran (auto) Absolute Neuts (auto) Absolute Nucleated RBC 0.000 Nucleated RBC % (auto) 0.0 PT 15.4 H INR 1.3 H aPTT Heparin Protocol > 200.0 H* Sodium Potassium Chloride Carbon Dioxide Anion Gap BUN Creatinine Estim Creat Clear Calc Estimated GFR POC Glucose Random Glucose Calcium Magnesium Total Bilirubin AST ALT Alkaline Phosphatase Total Creatine Kinase Troponin I High Sens B-Natriuretic Peptide Total Protein Albumin Lipase Urine Color Urine Appearance Urine pH Ur Specific [place] Urine Protein Urine Glucose (UA) Urine Ketones Urine Blood Urine Nitrite Ur Leukocyte Esterase COVID-19 ([facility]) COVID-19 Clin Com Blood Type A Positive Antibody Screen NEGATIVE Crossmatch See Detail 12/28/21 12/28/21 12/28/21 03:10 06:03 06:03 WBC 9.1 RBC 3.67 L D Hgb 10.3 L D Hct 30.6 L D MCV 83.4 MCH 28.1 MCHC 33.7 RDW 15.5 Plt Count 133 L MPV 12.0 Immature Gran % (Auto) 0.3 Neut % (Auto) 79.6 H Lymph % (Auto) 14.2 L [place] % (Auto) 5.5 Eos % (Auto) 0.2 Baso % (Auto) 0.2 Lymph # (Auto) 1.3 [place] # (Auto) 0.5 Eos # (Auto) 0.0 Baso # (Auto) 0.0 Abs Immat Gran (auto) 0.03 Absolute Neuts (auto) 7.3 Absolute Nucleated RBC 0.000 Nucleated RBC % (auto) 0.0 PT INR aPTT Heparin Protocol 58.1 D Sodium 134 L Potassium 2.9 L Chloride 94 L Carbon Dioxide 28 Anion Gap 15 BUN 32 H Creatinine 2.69 H Estim Creat Clear Calc 12.2 Estimated GFR 17 POC Glucose Random Glucose 130 H Calcium 6.9 L Magnesium Total Bilirubin 0.8 AST 70 H ALT 40 H Alkaline Phosphatase 131 H D Total Creatine Kinase Troponin I High Sens B-Natriuretic Peptide Total Protein 4.9 L Albumin 2.2 L Lipase Urine Color Urine Appearance Urine pH Ur Specific [place] Urine Protein Urine Glucose (UA) Urine Ketones Urine Blood Urine Nitrite Ur Leukocyte Esterase COVID-19 ([facility]) COVID-19 Clin Com Blood Type Antibody Screen Crossmatch 12/28/21 12/28/21 12/28/21 06:03 06:03 07:31 WBC RBC Hgb Hct MCV MCH MCHC RDW Plt Count MPV Immature Gran % (Auto) Neut % (Auto) Lymph % (Auto) [place] % (Auto) Eos % (Auto) Baso % (Auto) Lymph # (Auto) [place] # (Auto) Eos # (Auto) Baso # (Auto) Abs Immat Gran (auto) Absolute Neuts (auto) Absolute Nucleated RBC Nucleated RBC % (auto) PT INR aPTT Heparin Protocol Sodium Potassium Chloride Carbon Dioxide Anion Gap BUN Creatinine Estim Creat Clear Calc Estimated GFR POC Glucose 123 H Random Glucose Calcium Magnesium 1.2 L* Total Bilirubin AST ALT Alkaline Phosphatase Total Creatine Kinase Troponin I High Sens 849.3 H* B-Natriuretic Peptide Total Protein Albumin Lipase Urine Color Urine Appearance Urine pH Ur Specific [place] Urine Protein Urine Glucose (UA) Urine Ketones Urine Blood Urine Nitrite Ur Leukocyte Esterase COVID-19 ([facility]) COVID-19 Clin Com Blood Type Antibody Screen Crossmatch 12/28/21 12/28/21 08:09 11:24 WBC RBC Hgb Hct MCV MCH MCHC RDW Plt Count MPV Immature Gran % (Auto) Neut % (Auto) Lymph % (Auto) [place] % (Auto) Eos % (Auto) Baso % (Auto) Lymph # (Auto) [place] # (Auto) Eos # (Auto) Baso # (Auto) Abs Immat Gran (auto) Absolute Neuts (auto) Absolute Nucleated RBC Nucleated RBC % (auto) PT INR aPTT Heparin Protocol 45.7 L D Sodium Potassium Chloride Carbon Dioxide Anion Gap BUN Creatinine Estim Creat Clear Calc Estimated GFR POC Glucose Random Glucose Calcium Magnesium Total Bilirubin AST ALT Alkaline Phosphatase Total Creatine Kinase Troponin I High Sens B-Natriuretic Peptide Total Protein Albumin Lipase Urine Color Urine Appearance Urine pH Ur Specific [place] Urine Protein Urine Glucose (UA) Urine Ketones Urine Blood Urine Nitrite Ur Leukocyte Esterase COVID-19 ([facility]E) Negative COVID-19 Clin Com See Note Blood Type Antibody Screen Crossmatch Imaging Radiologist's impression: Impressions Chest X-Ray 12/27/21 21:00 IMPRESSION: No acute intrathoracic disease Assessment and Plan (1) Non-ST elevation [place] (NSTEMI): Status: Acute (2) Hypokalemia: Status: Acute (3) Cardiomyopathy: Status: Acute (4) Prolonged QT interval: Status: Acute Plan 81-year-old female with history of cardiomyopathy which was thought to be ischemic and NSTEMI in July 2021 which was conservatively managed presenting with failure to thrive in the setting of pancreatic cancer and intolerance of chemotherapy. Denying any chest pain or shortness of breath. She does have elevated troponin levels which are downtrending but also had acute kidney injury at the same time. EKG is very abnormal in showing precordial T-wave inversions with prolonged QTC and hypokalemia and hypomagnesia has been noticed on her blood workup. She is a vague historian. In any case she has advanced pancreatic cancer and needs discussion with hospice at this stage. Can continue heparin for 48 hours and stop after that. Replete potassium and magnesium and monitor closely. Her QTC is prolonged due to hypokalemia and hypomagnesemia. The T-wave changes are bizarre and can happen from electrolyte issues, true ischemia in the LAD territory as well as pulmonary embolism. Please avoid adding medications like Zofran or other QT prolonging agents. No further recommendations from our end. Signing off for now. Thank you for allowing me to participate in the care of your patient. Please feel free to contact me if you have any questions. Procedures Date of Service Date of Service: 12/28/21
[2021-12-28] MEDS: Heparin Sodium,Porcine 5,000 UNIT/ML VIAL 1800 UNIT IVPUSH (12:42)
--- NOTE | 2021-12-28 12:54 | MHC.CM.PN ---
Addendum entered by Ruby Billings 12/28/21 14:52: [facility] is not able to offer a bed. Received return telephone call from Melinda. Melinda requesting referral to [facility]. Referral made via [facility]. Melinda is also requesting a private room. T/W explained we can request a private room, but not guarantee a private room will be available. Melinda verbalized understanding. Original Note: Attempted to meet with patient in regards to discharge planning. Nursing care being provided. Patient is from home with family and Rita [facility]AVER. Received consult from Mckenna EVERETT for hospice referral. Mckenna then cancelled hospice referral because family is not ready for hospice and wants patient to be full code. Patient is active with [facility]. Spoke with Tiffany at [facility]. Patient's daughter, Melinda has been in talks with the patient's child care associate teacher about patient going to short term rehab. Apparently there is construction being done on patient's home and patient is too frail to stay home. Clinical Education Consultant and Melinda have been discussing getting patient into [facility]. Referral made to [facility] at this time. Attempted to speak to Melinda via telephone at [phone]. Left message explaining referral would be made to [facility], explaining IMM would be left bedside and requesting return telephone call. HCP verified to be on file. Patient is active with [facility]. Continue to monitor for d/c needsl
--- NOTE | 2021-12-28 13:32 | P.PNIM_ITS ---
Subjective Subjective Date of Service: 12/28/21 Interval History: seen and examined this morning follow up for weakness, NSTEMI, electrolyte abnormalitis History obtained with the use of a heel edge inker machine. daughter present at the bedside Patient denies any chest pain or shortness of breath at this time Review of Systems Review of Systems: Yes all other systems are reviewed and are negative Constitutional Constitutional: Denies chills and Denies fever(s) Cardiovascular Cardiovascular: Denies chest pain, Denies palpitations and Denies dyspnea Respiratory Respiratory: Denies dyspnea Gastrointestinal Gastrointestinal: Denies abdominal pain, Denies nausea and Denies vomiting Endocrine Endocrine: Denies palpitations Physical Exam Vital Signs: Vital Signs: Last Vital Signs Temp 97.7 F 12/28/21 13:24 Pulse 65 12/28/21 13:24 Resp 12 12/28/21 13:24 BP 147/71 H 12/28/21 13:24 Pulse Ox 99 12/28/21 13:24 O2 Del Method 12/28/21 13:24 O2 Flow Rate 100 12/28/21 06:36 BMI result Body Mass Index 19.8 Const: Other: chronically ill appearing General: comfortable, no acute distress, alert and awake Nutritional Appearance: thin Orientation/consciousness: oriented to person and oriented to place Resp: Effort & Inspection: normal respiratory effort and able to speak in complete sentences Cardio: Rate: regular rate Heart sounds: S1 normal heart sound present and S2 normal heart sound present GI: Inspection: No distended Palpation (GI): Soft to palpation and nontender Neuro: General: oriented to person and oriented to place Extrem: General: Yes no pedal edema Objective Data Active Medications Dextrose (Dextrose 50 % 25 Gm/50 Ml Syringe) 25 gm IVPUSH Q15M PRN; Protocol PRN Reason: per Hypoglycemia Standing Ord. Glucose (Glucose Gel 15 Gm Gel..Gram.) 15 gm PO Q15M PRN; Protocol PRN Reason: per Hypoglycemia Standing Ord. Heparin Sodium (Porcine) (Heparin Sodium,Porcine 5,000 Unit/Ml Vial) 1,800 unit 40 unit/kg (1800 unit) IVPUSH PROTOCOL BOLUS PRN; Protocol PRN Reason: 40 unit/kg - Heparin Protocol Last Admin: 12/28/21 12:42 Dose: 1,800 unit Documented By: ALFONZO Heparin Sodium (Porcine) (Heparin Sodium,Porcine 5,000 Unit/Ml Vial) 3,700 unit 80 unit/kg (3700 unit) IVPUSH PROTOCOL BOLUS PRN; Protocol PRN Reason: 80 unit/kg - Heparin Protocol Heparin Sodium/Sodium Chloride (Heparin Sodium,Porcine/1/2ns) 25,000 unit in 250 mls @ 0 mls/hr IVCONT .Q0M [facility]; Protocol Last Titration: 12/28/21 12:43 Dose: 21.74 units/kg/hr, 10 mls/hr Documented By: ALFONZO Co-signed By: KAMINI Insulin Human Lispro (Insulin Lispro 100 Unit/Ml 3 Ml Vial) 0.1 - 10 unit SUBCUT QIDACHS [facility]; Protocol Stop: 12/29/21 02:20 Last Admin: 12/28/21 07:46 Dose: Not Given Documented By: ALFONZO Non-Admin Reason: No Insulin Coverage Melatonin (Melatonin 3 Mg Tablet) 6 mg PO BEDTIME PRN PRN Reason: Insomnia Nitroglycerin (Nitroglycerin 0.4 Mg Tab.Subl) 0.4 mg SUBLINGUAL Q5MX3 PRN PRN Reason: Chest Pain Pharmacy Consult (Consult Rx Perform Med Rec) 1 each MISCELLANE ONCE PRN PRN Reason: Consult order Sodium Chloride (0.9 % Sodium Chloride Flush 3 Ml Syringe) 3 ml IVFLUSH [facility] Last Admin: 12/28/21 08:25 Dose: Not Given Documented By: ALFONZO Non-Admin Reason: IV Running Labs CBC & Chem 7: 12/28/21 06:03 12/28/21 06:03 Labs: Laboratory Results - last 24 hr 12/27/21 12/27/21 12/27/21 21:03 21:03 21:27 MCV MCH MCHC RDW Plt Count MPV Immature Gran % (Auto) Neut % (Auto) Lymph % (Auto) Bowie % (Auto) Eos % (Auto) Baso % (Auto) Lymph # (Auto) Bowie # (Auto) Eos # (Auto) Baso # (Auto) Abs Immat Gran (auto) Absolute Neuts (auto) Absolute Nucleated RBC Nucleated RBC % (auto) PT INR aPTT Heparin Protocol Anion Gap 15 Estim Creat Clear Calc 10.5 Estimated GFR 14 POC Glucose Random Glucose 185 H Calcium 7.3 L Magnesium Total Bilirubin AST ALT Alkaline Phosphatase Total Creatine Kinase 73 Troponin I High Sens 1009.8 H* D B-Natriuretic Peptide 888 H Total Protein Albumin Lipase 8 Urine Color Yellow Urine Appearance Clear Urine pH 5.0 Ur Specific Yreka 1.015 Urine Protein Negative Urine Glucose (UA) Negative Urine Ketones Negative Urine Blood Negative Urine Nitrite Negative Ur Leukocyte Esterase Negative COVID-19 ([facility]LENE) COVID-19 [facility] Blood Type Antibody Screen Crossmatch 12/27/21 12/27/21 12/28/21 22:40 22:40 00:51 MCV 84.2 MCH 28.9 MCHC 34.3 RDW 15.7 Plt Count 131 L MPV 12.1 Immature Gran % (Auto) 0.5 H Neut % (Auto) 76.4 H Lymph % (Auto) 17.4 L Bowie % (Auto) 5.4 Eos % (Auto) 0.0 Baso % (Auto) 0.3 Lymph # (Auto) 1.1 L Bowie # (Auto) 0.3 Eos # (Auto) 0.0 Baso # (Auto) 0.0 Abs Immat Gran (auto) 0.03 Absolute Neuts (auto) 4.8 Absolute Nucleated RBC 0.000 Nucleated RBC % (auto) 0.0 PT 15.2 H INR 1.3 H aPTT Heparin Protocol Anion Gap Estim Creat Clear Calc Estimated GFR POC Glucose Random Glucose Calcium Magnesium Total Bilirubin AST ALT Alkaline Phosphatase Total Creatine Kinase Troponin I High Sens 1018.9 H* B-Natriuretic Peptide Total Protein Albumin Lipase Urine Color Urine Appearance Urine pH Ur Specific Yreka Urine Protein Urine Glucose (UA) Urine Ketones Urine Blood Urine Nitrite Ur Leukocyte Esterase COVID-19 ([facility]) COVID-19 [facility] Blood Type Antibody Screen Crossmatch 12/28/21 12/28/21 12/28/21 01:29 01:29 02:01 MCV 84.0 MCH 28.9 MCHC 34.4 RDW 15.8 Plt Count 135 L MPV 11.9 Immature Gran % (Auto) Neut % (Auto) Lymph % (Auto) Bowie % (Auto) Eos % (Auto) Baso % (Auto) Lymph # (Auto) Bowie # (Auto) Eos # (Auto) Baso # (Auto) Abs Immat Gran (auto) Absolute Neuts (auto) Absolute Nucleated RBC 0.000 Nucleated RBC % (auto) 0.0 PT 15.4 H INR 1.3 H aPTT Heparin Protocol > 200.0 H* Anion Gap Estim Creat Clear Calc Estimated GFR POC Glucose Random Glucose Calcium Magnesium Total Bilirubin AST ALT Alkaline Phosphatase Total Creatine Kinase Troponin I High Sens B-Natriuretic Peptide Total Protein Albumin Lipase Urine Color Urine Appearance Urine pH Ur Specific Yreka Urine Protein Urine Glucose (UA) Urine Ketones Urine Blood Urine Nitrite Ur Leukocyte Esterase COVID-19 ([facility]) COVID-19 Clin Com Blood Type A Positive Antibody Screen NEGATIVE Crossmatch See Detail 12/28/21 12/28/21 12/28/21 03:10 06:03 06:03 MCV 83.4 MCH 28.1 MCHC 33.7 RDW 15.5 Plt Count 133 L MPV 12.0 Immature Gran % (Auto) 0.3 Neut % (Auto) 79.6 H Lymph % (Auto) 14.2 L Bowie % (Auto) 5.5 Eos % (Auto) 0.2 Baso % (Auto) 0.2 Lymph # (Auto) 1.3 Bowie # (Auto) 0.5 Eos # (Auto) 0.0 Baso # (Auto) 0.0 Abs Immat Gran (auto) 0.03 Absolute Neuts (auto) 7.3 Absolute Nucleated RBC 0.000 Nucleated RBC % (auto) 0.0 PT INR aPTT Heparin Protocol 58.1 D Anion Gap 15 Estim Creat Clear Calc 12.2 Estimated GFR 17 POC Glucose Random Glucose 130 H Calcium 6.9 L Magnesium Total Bilirubin 0.8 AST 70 H ALT 40 H Alkaline Phosphatase 131 H D Total Creatine Kinase Troponin I High Sens B-Natriuretic Peptide Total Protein 4.9 L Albumin 2.2 L Lipase Urine Color Urine Appearance Urine pH Ur Specific Yreka Urine Protein Urine Glucose (UA) Urine Ketones Urine Blood Urine Nitrite Ur Leukocyte Esterase COVID-19 ([facility]E) COVID-19 [facility] Blood Type Antibody Screen Crossmatch 12/28/21 12/28/21 12/28/21 06:03 06:03 07:31 MCV MCH MCHC RDW Plt Count MPV Immature Gran % (Auto) Neut % (Auto) Lymph % (Auto) Bowie % (Auto) Eos % (Auto) Baso % (Auto) Lymph # (Auto) Bowie # (Auto) Eos # (Auto) Baso # (Auto) Abs Immat Gran (auto) Absolute Neuts (auto) Absolute Nucleated RBC Nucleated RBC % (auto) PT INR aPTT Heparin Protocol Anion Gap Estim Creat Clear Calc Estimated GFR POC Glucose 123 H Random Glucose Calcium Magnesium 1.2 L* Total Bilirubin AST ALT Alkaline Phosphatase Total Creatine Kinase Troponin I High Sens 849.3 H* B-Natriuretic Peptide Total Protein Albumin Lipase Urine Color Urine Appearance Urine pH Ur Specific Yreka Urine Protein Urine Glucose (UA) Urine Ketones Urine Blood Urine Nitrite Ur Leukocyte Esterase COVID-19 ([facility]) COVID-19 Clin Com Blood Type Antibody Screen Crossmatch 12/28/21 12/28/21 08:09 11:24 MCV MCH MCHC RDW Plt Count MPV Immature Gran % (Auto) Neut % (Auto) Lymph % (Auto) Bowie % (Auto) Eos % (Auto) Baso % (Auto) Lymph # (Auto) Bowie # (Auto) Eos # (Auto) Baso # (Auto) Abs Immat Gran (auto) Absolute Neuts (auto) Absolute Nucleated RBC Nucleated RBC % (auto) PT INR aPTT Heparin Protocol 45.7 L D Anion Gap Estim Creat Clear Calc Estimated GFR POC Glucose Random Glucose Calcium Magnesium Total Bilirubin AST ALT Alkaline Phosphatase Total Creatine Kinase Troponin I High Sens B-Natriuretic Peptide Total Protein Albumin Lipase Urine Color Urine Appearance Urine pH Ur Specific Yreka Urine Protein Urine Glucose (UA) Urine Ketones Urine Blood Urine Nitrite Ur Leukocyte Esterase COVID-19 ([facility]) Negative COVID-19 Clin Com See Note Blood Type Antibody Screen Crossmatch Assessment and Plan (1) Prolonged QT interval: Status: Acute (2) Non-ST elevation MN (NSTEMI): Status: Acute (3) Hypokalemia: Status: Acute (4) Hypomagnesemia: Status: Acute Plan This is a 81-year-old female with pertinent history of pancreatic cancer on chemotherapy, ischemic cardiomyopathy with CHFrEF, CAD with h/o NSTEMI, essential hypertension, mixed hyperlipidemia, adult failure to thrive with protein calorie malnutrition was brought to the emergency department via EMS for evaluation of progressive generalized weakness. NSTEMI continue heparin drip for now per cardiology continue aspirin, statin and metoprolol, imdur Patient has previously refused cardiac catheterization transfuse to keep hematocrit>30 in this patient with ACS. cardiology following Prolonged QT r/t to electrolyte abnormalities avoid QT prolonging meds follow BMP tele monitoring Acute kidney injury on CKD likely prerenal, s/p IVF in ED, renal function improving follow BMP hold lasix Hyponatremia, -likely hypovolemic. Monitor with fluid resuscitation Hypokalemia/ hypomagnesemia likely due to poor p.o. intake s/p IV and PO replacement in ED will repeat electrolytes Adult failure to thrive with protein calorie malnutrition added ensure to diet. Prognosis is guarded due to underlying pancreatic cancer. was supposed to have hospice eval as outpatient, has declined hospice in past. currently wants treatment and will consider hospice in future Generalised weakness due to underlying pancreatic cancer/FTT PT eval when medically stable CHFrEF no decompensation at admission hold lasix for onofre NIDDM with hyperglycemia -Initiating SSI Chronic normocytic anemia -PRbC transfusion as above. follow CBC Mood disorder continue home po medications with exception of SSRI due to prolonged QT DVT prophylaxis: Heparin Full code- discussed with patient and daughter at bedside. has been recommended for hospice care by oncology. offered to have inpatient hospice evaluation, patient and daughter decline at this time Diet: Cardiac diet with ensure Attending - dr. bliss Patient requires ongoing inpatient hospitaliation for IV heparin and cardiac monitoring. High risk for decompensation. Prognosis is guarded. Quality Stroke Does the patient have a stroke diagnosis?: No VTE Prior VTE?: No VTE Risk Level:: Medical - moderate - high VTE Device Contraindication: Treatment Not Indicated VTE Drug Contraindication: N/A - Med Ordered
[2021-12-28 13:53] LABS: Glucose, Whole Blood 136 mg/dL (60-115)
[2021-12-28 14:01] LABS: Anion Gap 16 (12-20); Blood Urea Nitrogen 33 mg/dL (9-16); Calcium 7.5 mg/dL (8.4-10.2); Carbon Dioxide 28 mmol/L (22-29); Chloride 93 mmol/L (96-108); Creatinine Clr Calc Pharmacy 11.4; Estimated Glomerular Filt Rate 16; Glucose Random 142 mg/dL (60-115); Potassium 3.4 mmol/L (3.3-5.1); Sodium 134 mmol/L (135-145)
--- NOTE | 2021-12-28 14:34 | PC.NURSE ---
Heparin GTT pump running at correct 10 unit/kg/hr since 12:43- APR reflected heparin gtt running at 10 mls/hr due to documentation error. pump has been running at correct dose rate, MAR updated to reflect correct dose gtt.
[2021-12-28] MEDS: Lactated Ringers 1,000 ML 80 ML IVCONT (17:02)
[2021-12-28 18:20] LABS: Glucose, Whole Blood 131 mg/dL (60-115)
[2021-12-28] MEDS: Omeprazole 20 MG CAPSULE.DR PO (19:14)
[2021-12-28 19:44] LABS: PTT Heparin Drip > 200.0 SEC (53-77.9)
--- NOTE | 2021-12-28 20:00 | PC.NURSE ---
Lab called with critical PTT HD >200. Heparin drip oh hold, recheck PTT HD scheduled in [address] Adam notified. Patient has room at [facility]. Jermaine vazquez notified and will be transport patient. Nurse to nurse report called to Emi [facility].
[2021-12-28] MEDS: Magnesium Oxide 400 MG TABLET PO (21:07)
[2021-12-28] MEDS: clonazePAM 0.5 MG TABLET PO (21:07)
[2021-12-28 21:12] LABS: Glucose, Whole Blood 125 mg/dL (60-115)
[2021-12-29] VITALS (9 sets, daily range): BP systolic 102–152; BP diastolic 47–74; PULSE 54–63; RESP 17–20; TEMP 35.7–36.5; O2SAT 99–100; BMI 20.3
--- NOTE | 2021-12-29 | ECG_ITS ---
Test Reason : cp Blood Pressure : / mmHG Vent. Rate : 057 BPM Atrial Rate : 057 BPM P-R Int : 140 ms QRS Dur : 090 ms QT Int : 538 ms P-R-T Axes : 042 042 100 degrees QTc Int : 523 ms Sinus bradycardia Low voltage QRS ST & T wave abnormality, consider anterior ischemia Prolonged QT Abnormal ECG When compared with ECG of 27-DEC-2021 20:14, QRS duration has decreased Referred By: Mckenna Henriquez Electronically Signed By:CELESTINO DOMINGUEZ MD
[2021-12-29 04:42] LABS: Hematocrit 29.2 % (37.0-47.0); Hemoglobin 10.2 g/dl (12.0-16.0); Mean Corpuscular HGB Conc 34.9 g/dl (31.0-35.0); Mean Corpuscular Hemoglobin 28.6 pg (27.0-33.0); Mean Corpuscular Volume 81.8 fL (80.0-98.0); Mean Platelet Volume 12.2 fL (9.4-12.3); Platelet Count 122 X10*3/uL (160-400); Red Blood Count 3.57 X10*6/uL (4.20-5.50); Red Cell Distribution Width 16.8 % (11.0-16.0); White Blood Count 6.6 X10*3/uL (4.8-10.8)
[2021-12-29 04:46] LABS: INTERNATIONAL NORM RATIO 1.2 (0.9-1.1); Prothrombin Time 14.4 SEC (10.0-13.1)
[2021-12-29 04:49] LABS: PTT Heparin Drip 85.6 SEC (53-77.9)
[2021-12-29 05:06] LABS: Alanine Aminotransferase 40 U/L (0-31); Alkaline Phosphatase 121 U/L (39-117); Anion Gap 13 (12-20); Aspartate Amino Transferase 70 U/L (5-31); Bilirubin Direct 0.4 mg/dL (0.0-0.5); Bilirubin Total 0.7 mg/dL (0.0-1.0); Blood Urea Nitrogen 32 mg/dL (9-16); Calcium 7.3 mg/dL (8.4-10.2); Carbon Dioxide 29 mmol/L (22-29); Chloride 96 mmol/L (96-108); Creatinine Clr Calc Pharmacy 12.9; Estimated Glomerular Filt Rate 18; Glucose Random 144 mg/dL (60-115); Magnesium 1.5 mg/dL (1.6-2.6); Sodium 135 mmol/L (135-145); Total Protein 4.5 g/dL (6.5-8.0)
[2021-12-29] MEDS: Lactated Ringers 1,000 ML 80 ML IVCONT ×2 (06:17→18:06)
[2021-12-29] MEDS: Omeprazole 20 MG CAPSULE.DR PO (06:17)
[2021-12-29 07:41] LABS: Glucose, Whole Blood 147 mg/dL (60-115)
[2021-12-29] MEDS: clonazePAM 0.5 MG TABLET PO ×2 (09:41→20:26)
[2021-12-29] MEDS: Isosorbide Mononitrate 30 MG TAB.ER.24H PO (09:41)
[2021-12-29] MEDS: Magnesium Oxide 400 MG TABLET PO ×2 (09:41→20:25)
[2021-12-29] MEDS: Atorvastatin Calcium 40 MG TABLET PO (09:43)
[2021-12-29] MEDS: Potassium Chloride Packet 20 MEQ PACKET 40 MEQ PO (09:49)
[2021-12-29] MEDS: Magnesium Sulfate/H2O 2 GM/50 ML PIGGYBACK IV (09:55)
[2021-12-29 11:35] LABS: PTT Heparin Drip 48.1 SEC (53-77.9)
[2021-12-29 11:44] LABS: Glucose, Whole Blood 154 mg/dL (60-115)
--- NOTE | 2021-12-29 12:23 | HO.PM.IMPN ---
Subjective Subjective Date of Service: 12/29/21 Interval History: seen and examined this morning History obtained with the assistance of a parish visitor patient reports generalized weakness, denies any specific complaints. She denies chest pain, palpitations, shortness of breath, abdominal pain. She reports that she still has no appetite although she is trying to drink her Ensure Review of Systems Review of Systems: Yes all other systems are reviewed and are negative Constitutional Constitutional: Denies chills and Denies fever(s) Cardiovascular Cardiovascular: Denies chest pain, Denies palpitations and Denies dyspnea Respiratory Respiratory: Denies cough and Denies dyspnea Gastrointestinal Gastrointestinal: Denies abdominal pain, Denies nausea and Denies vomiting Endocrine Endocrine: Denies palpitations Physical Exam Vital Signs: Vital Signs: Last Vital Signs Temp 96.6 F L 12/29/21 11:57 Pulse 54 12/29/21 11:57 Resp 18 12/29/21 11:57 BP 135/74 12/29/21 11:57 Pulse Ox 99 12/29/21 11:57 O2 Del Method 12/29/21 11:57 O2 Flow Rate 100 12/28/21 06:36 BMI result Body Mass Index 20.3 Const: Other: chronically ill appearing General: comfortable, no acute distress, alert and awake Nutritional Appearance: thin Orientation/consciousness: oriented to person and oriented to place Resp: Effort & Inspection: normal respiratory effort and able to speak in complete sentences Cardio: Rate: regular rate Heart sounds: S1 normal heart sound present and S2 normal heart sound present GI: Inspection: No distended Palpation (GI): Soft to palpation and nontender Neuro: General: oriented to person and oriented to place Extrem: General: Yes no pedal edema Objective Data Active Medications Aspirin (Aspirin Enteric Coated 81 Mg Peyton.) 81 mg PO DAILY [facility] Last Admin: 12/29/21 11:39 Dose: Not Given Documented By: HUGH Non-Admin Reason: See Note Atorvastatin Calcium (Atorvastatin Calcium 40 Mg Tablet) 40 mg PO DAILY [facility] Last Admin: 12/29/21 09:43 Dose: 40 mg Documented By: HUGH Clonazepam (Clonazepam 0.5 Mg Tablet) 0.5 mg PO BID [facility] Last Admin: 12/29/21 09:41 Dose: 0.5 mg Documented By: HUGH Dextrose (Dextrose 50 % 25 Gm/50 Ml Syringe) 25 gm IVPUSH Q15M PRN; Protocol PRN Reason: per Hypoglycemia Standing Ord. Glucose (Glucose Gel 15 Gm Gel..Gram.) 15 gm PO Q15M PRN; Protocol PRN Reason: per Hypoglycemia Standing Ord. Lactated Ringer's (Lr) 1,000 mls @ 80 mls/hr IVCONT .[id number] [facility] Last Infusion: 12/29/21 06:18 Dose: 0 mls/hr Documented By: JUAN A Isosorbide Mononitrate (Isosorbide Mononitrate 30 Mg Tab.Er.24h) 30 mg PO DAILY [facility]; Protocol Last Admin: 12/29/21 09:41 Dose: 30 mg Documented By: HUGH Ketotifen Fumarate (Ketotifen Fumarate 0.025% Oph 5 Ml Drpbtl) 1 drop EYE-BOTH BID PRN PRN Reason: itch Magnesium Oxide (Magnesium Oxide 400 Mg Tablet) 400 mg PO BID [facility] Last Admin: 12/29/21 09:41 Dose: 400 mg Documented By: HUHG Melatonin (Melatonin 3 Mg Tablet) 6 mg PO BEDTIME PRN PRN Reason: Insomnia Metoprolol Tartrate (Metoprolol Tartrate 12.5 Mg Halftab) 12.5 mg PO BID [facility]; Protocol Last Admin: 12/29/21 09:59 Dose: Not Given Documented By: HUGH Non-Admin Reason: See Note Nitroglycerin (Nitroglycerin 0.4 Mg Tab.Subl) 0.4 mg SUBLINGUAL Q5MX3 PRN PRN Reason: Chest Pain Non-Formulary Medication (Dronabinol) 2.5 mg PO BID [facility] Omeprazole (Omeprazole 20 Mg Capsule.Dr) 20 mg PO BID@0630,1630 [facility] Last Admin: 12/29/21 06:17 Dose: 20 mg Documented By: JUAN A Pharmacy Consult (Consult Rx Perform Med Rec) 1 each MISCELLANE ONCE PRN PRN Reason: Consult order Sodium Chloride (0.9 % Sodium Chloride Flush 3 Ml Syringe) 3 ml IVFLUSH QSHIFT [facility] Last Admin: 12/29/21 09:55 Dose: Not Given Documented By: HUGH Non-Admin Reason: IV Running Labs CBC & Chem 7: 12/29/21 04:27 12/29/21 04:27 Labs: Laboratory Results - last 24 hr 12/28/21 12/28/21 12/28/21 13:18 13:30 13:47 MCV MCH MCHC RDW Plt Count MPV Absolute Nucleated RBC Nucleated RBC % (auto) PT INR aPTT Heparin Protocol Anion Gap 16 Estim Creat Clear Calc 11.4 Estimated GFR 16 POC Glucose 136 H Random Glucose 142 H Calcium 7.5 L D Magnesium Total Bilirubin Direct Bilirubin AST ALT Alkaline Phosphatase Total Protein Albumin Blood Type A Positive Antibody Screen NEGATIVE 12/28/21 12/28/21 12/28/21 18:16 19:13 21:08 MCV MCH MCHC RDW Plt Count MPV Absolute Nucleated RBC Nucleated RBC % (auto) PT INR aPTT Heparin Protocol > 200.0 H* D Anion Gap Estim Creat Clear Calc Estimated GFR POC Glucose 131 H 125 H Random Glucose Calcium Magnesium Total Bilirubin Direct Bilirubin AST ALT Alkaline Phosphatase Total Protein Albumin Blood Type Antibody Screen 12/28/21 12/28/21 12/29/21 21:27 23:42 04:27 MCV 81.8 MCH 28.6 MCHC 34.9 RDW 16.8 H Plt Count 122 L MPV 12.2 Absolute Nucleated RBC 0.000 Nucleated RBC % (auto) 0.0 PT INR aPTT Heparin Protocol 104.0 H D 37.0 L D Anion Gap Estim Creat Clear Calc Estimated GFR POC Glucose Random Glucose Calcium Magnesium Total Bilirubin Direct Bilirubin AST ALT Alkaline Phosphatase Total Protein Albumin Blood Type Antibody Screen 12/29/21 12/29/21 12/29/21 04:27 04:27 04:27 MCV MCH MCHC RDW Plt Count MPV Absolute Nucleated RBC Nucleated RBC % (auto) PT 14.4 H INR 1.2 H aPTT Heparin Protocol 85.6 H D Anion Gap 13 Estim Creat Clear Calc 12.9 Estimated GFR 18 POC Glucose Random Glucose 144 H Calcium 7.3 L Magnesium 1.5 L Total Bilirubin 0.7 Direct Bilirubin 0.4 AST 70 H ALT 40 H Alkaline Phosphatase 121 H Total Protein 4.5 L Albumin 2.0 L Blood Type Antibody Screen 12/29/21 12/29/21 07:35 11:39 MCV MCH MCHC RDW Plt Count MPV Absolute Nucleated RBC Nucleated RBC % (auto) PT INR aPTT Heparin Protocol Anion Gap Estim Creat Clear Calc Estimated GFR POC Glucose 147 H 154 H Random Glucose Calcium Magnesium Total Bilirubin Direct Bilirubin AST ALT Alkaline Phosphatase Total Protein Albumin Blood Type Antibody Screen Assessment and Plan (1) Prolonged QT interval: Status: Acute (2) Hypokalemia: Status: Acute (3) Hypomagnesemia: Status: Acute Plan This is a 81-year-old female with pertinent history of pancreatic cancer on chemotherapy, ischemic cardiomyopathy with CHFrEF, CAD with h/o NSTEMI, essential hypertension, mixed hyperlipidemia, adult failure to thrive with protein calorie malnutrition was brought to the emergency department via EMS for evaluation of progressive generalized weakness. NSTEMI d/c heparin drip today per cardiology. think EKG changes could be r/t electrolyte abnormalities continue aspirin, statin and metoprolol, imdur Patient has previously refused cardiac catheterization transfuse to keep hematocrit around 30 Prolonged QT repeat EKG still with prolonged QT, improved a little o 523 r/t to electrolyte abnormalities avoid QT prolonging meds follow BMP continue to replace electrolytes tele monitoring Acute kidney injury on CKD4 likely prerenal, renal function improving with IVF creatinine down to 2.5 from 3.10 follow BMP hold lasix Hyponatremia resolved Hypokalemia/ hypomagnesemia likely due to poor p.o. intake continue to replace electrolytes tele monitoring follow BMP Thrombocytopenia follow CBC Adult failure to thrive with protein calorie malnutrition added ensure to diet. Prognosis is guarded due to underlying pancreatic cancer. was supposed to have hospice eval as outpatient, has declined hospice in past. currently wants treatment and will consider hospice in future Generalized weakness due to underlying pancreatic cancer/FTT seen by PT - rec STR vs LTC Chronic HFrEF no decompensation at admission hold lasix for onofre NIDDM with hyperglycemia not on baseline meds check HbA1c follow POCs, SSI Chronic normocytic anemia s/p PRbC transfusion as above. H/H stable follow CBC Mood disorder continue home po medications with exception of SSRI due to prolonged QT DVT prophylaxis: mechanical devies Full code- discussed with patient and daughter at bedside. has been recommended for hospice care by oncology. offered to have inpatient hospice evaluation, patient and daughter decline at this time Diet: Cardiac diet with ensure Attending - dr. bliss Patient requires ongoing inpatient hospitaliation close cardiac monitoring/prolonged QTc. High risk for decompensation. Prognosis is guarded. Quality Stroke Does the patient have a stroke diagnosis?: No VTE Prior VTE?: No VTE Risk Level:: Medical - moderate - high VTE Device Contraindication: Treatment Not Indicated VTE Drug Contraindication: N/A - Med Ordered
--- NOTE | 2021-12-29 13:02 | PM.PNCARD ---
Subjective Subjective Date of Service: 12/29/21 Interval history: Seen and examined at bedside was moisture meter reader had a detailed discussion with patient's son. Continues to have no appetite and not eating much. Denying any chest pain or shortness of breath. EKG has precordial T-wave inversions as before. Physical Exam Vital Signs: Last Vital Signs Temp 96.6 F L 12/29/21 11:57 Pulse 54 12/29/21 11:57 Resp 18 12/29/21 11:57 BP 135/74 12/29/21 11:57 Pulse Ox 99 12/29/21 11:57 O2 Del Method 12/29/21 11:57 O2 Flow Rate 100 12/28/21 06:36 BMI result Body Mass Index 20.3 GENERAL APPEARANCE: in no acute distress, frail. Appears chronically sick. NECK: no carotid bruit, no jugular venous distention. SKIN: no suspicious lesions, warm and dry. HEART: no murmurs, regular rate and rhythm. LUNGS: clear to auscultation bilaterally. ABDOMEN: soft, nontender. EXTREMITIES: no edema. PERIPHERAL PULSES: equal. NEUROLOGIC: No gross deficits, AAO X 3 Objective Labs and Meds Result diagrams: 12/29/21 04:27 12/29/21 04:27 Lab results: Laboratory Results - last 24 hr 12/28/21 12/28/21 12/28/21 13:18 13:30 13:47 WBC RBC Hgb Hct MCV MCH MCHC RDW Plt Count MPV Absolute Nucleated RBC Nucleated RBC % (auto) PT INR aPTT Heparin Protocol Sodium 134 L Potassium 3.4 Chloride 93 L Carbon Dioxide 28 Anion Gap 16 BUN 33 H Creatinine 2.87 H Estim Creat Clear Calc 11.4 Estimated GFR 16 POC Glucose 136 H Random Glucose 142 H Calcium 7.5 L D Magnesium Total Bilirubin Direct Bilirubin AST ALT Alkaline Phosphatase Total Protein Albumin Blood Type A Positive Antibody Screen NEGATIVE 12/28/21 12/28/21 12/28/21 18:16 19:13 21:08 WBC RBC Hgb Hct MCV MCH MCHC RDW Plt Count MPV Absolute Nucleated RBC Nucleated RBC % (auto) PT INR aPTT Heparin Protocol > 200.0 H* D Sodium Potassium Chloride Carbon Dioxide Anion Gap BUN Creatinine Estim Creat Clear Calc Estimated GFR POC Glucose 131 H 125 H Random Glucose Calcium Magnesium Total Bilirubin Direct Bilirubin AST ALT Alkaline Phosphatase Total Protein Albumin Blood Type Antibody Screen 12/28/21 12/28/21 12/29/21 21:27 23:42 04:27 WBC 6.6 RBC 3.57 L Hgb 10.2 L Hct 29.2 L MCV 81.8 MCH 28.6 MCHC 34.9 RDW 16.8 H Plt Count 122 L MPV 12.2 Absolute Nucleated RBC 0.000 Nucleated RBC % (auto) 0.0 PT INR aPTT Heparin Protocol 104.0 H D 37.0 L D Sodium Potassium Chloride Carbon Dioxide Anion Gap BUN Creatinine Estim Creat Clear Calc Estimated GFR POC Glucose Random Glucose Calcium Magnesium Total Bilirubin Direct Bilirubin AST ALT Alkaline Phosphatase Total Protein Albumin Blood Type Antibody Screen 12/29/21 12/29/21 12/29/21 04:27 04:27 04:27 WBC RBC Hgb Hct MCV MCH MCHC RDW Plt Count MPV Absolute Nucleated RBC Nucleated RBC % (auto) PT 14.4 H INR 1.2 H aPTT Heparin Protocol 85.6 H D Sodium 135 Potassium 3.0 L Chloride 96 Carbon Dioxide 29 Anion Gap 13 BUN 32 H Creatinine 2.52 H Estim Creat Clear Calc 12.9 Estimated GFR 18 POC Glucose Random Glucose 144 H Calcium 7.3 L Magnesium 1.5 L Total Bilirubin 0.7 Direct Bilirubin 0.4 AST 70 H ALT 40 H Alkaline Phosphatase 121 H Total Protein 4.5 L Albumin 2.0 L Blood Type Antibody Screen 12/29/21 12/29/21 12/29/21 07:35 10:50 11:39 WBC RBC Hgb Hct MCV MCH MCHC RDW Plt Count MPV Absolute Nucleated RBC Nucleated RBC % (auto) PT INR aPTT Heparin Protocol 48.1 L D Sodium Potassium Chloride Carbon Dioxide Anion Gap BUN Creatinine Estim Creat Clear Calc Estimated GFR POC Glucose 147 H 154 H Random Glucose Calcium Magnesium Total Bilirubin Direct Bilirubin AST ALT Alkaline Phosphatase Total Protein Albumin Blood Type Antibody Screen Progress Note: A&P Assessment and plan (1) Prolonged QT interval: Status: Acute (2) Non-ST elevation [place] (NSTEMI): Status: Acute (3) Pancreatic carcinoma: Status: Acute Plan 81-year-old female with pancreatic cancer and failure to thrive. She is in with dehydration kidney injury and electrolyte imbalance. She also had abnormal high sensitivity troponin levels and also complained of some chest discomfort at home. In the hospital she did not complain of any symptoms. Her EKG had precordial T-wave inversions with prolonged QT interval. Her potassium magnesium were low. These are being repleted and being monitored closely. Her underlying issue obviously is the pancreatic cancer and she has not tolerated the chemotherapy in the past. She is cachectic and has no appetite. I have discussed with patient's son in detail that we are looking at advanced terminal disease and she is best treated with hospice to improve her quality of life. I also explained to the patient's son that with advance cancer and possibility of multivessel disease based on previous presentation and echocardiography as well as EKG changes at this point -her prognosis is poor and she should not be kept as full code. They will discuss as a family and come to a decision. Heparin should be discontinued after 48 hours. Continue supportive care otherwise. Thank you for allowing me to participate in the care of your patient. Please feel free to contact me if you have any questions. Time Spent With Patient Time: Total time spent is greater than 50% in coordination of care (as documented) at patient's floor/unit and/or counseling patient: Progress Note: Quality Stroke Does the patient have a stroke diagnosis?: No Procedures Date of Service Date of Service: 12/29/21
--- NOTE | 2021-12-29 13:27 | MHC.CLN ---
RE: CONSULT PT IS MODERATELY MALNOURISHED PT WITH MILDLY DEPLETED SUBCUTANEOUS FAT AND MUSCLE MASS WITH CHRONIC POOR PO INTAKE PT FAMILIAR FROM PREVIOUS ADMISSIONS. FAMILY REPORTED MEETING WITH HOSPICE REP SOON. DIET RX: CARDIAC-MAY LIBERALIZE FOR INCREASE IN VARIETY TO INCREASE PO IF NEEDED PT RECEIVING ENSURE TID TO PROVIDE 1050KCALS, 60G PROTEIN MONITOR PO INTAKE CLOSELY SEE ALSO FULL CLINICAL NUTRITION ASSESSMENT
[2021-12-29 14:41] LABS: Potassium 5.1 mmol/L (3.3-5.1)
[2021-12-29] MEDS: 0.9 % Sodium Chloride Flush 3 ML SYRINGE IVFLUSH (15:14)
[2021-12-29 16:36] LABS: Glucose, Whole Blood 175 mg/dL (60-115)
--- NOTE | 2021-12-29 17:29 | PC.NURSE ---
Addendum entered by Laci Pretty RN 12/29/21 18:30: pt noted to bekah to 47 while asleep. value stream leader informed. no new orders at this time Original Note: Pt hep gtt stopped as ordered. Cloud Systems Architect was informed of bleeding gums, per CONVOLUTE TUBE WINDER continue to monitor. LR noted to not be running at start of shift, CONVOLUTE TUBE WINDER informed, afterwards value stream leader stated to continue LR infusion. Temp rechecked, pt not hypothermic but normothermic. Sore found inside pt's mouth in upper lip, ? source of bleed. Family at bedside assisting with care.
--- NOTE | 2021-12-29 18:34 | PM.EVENT ---
Event Note Date of Service: 12/29/21 Event Note: Called by nurse since tele monitor showed heart rate between 45-55 while patient is sleeping, BP 134/73 Patient in no respiratory distress, sleeping comfortably Potassium improved to 5.1, magnesium 1.5 received 2 g of IV magnesium will follow magnesium level hold lopressor 12.5mg bid , continue tele monitoring
[2021-12-29 20:51] LABS: Glucose, Whole Blood 173 mg/dL (60-115)
[2021-12-30] VITALS (8 sets, daily range): BP systolic 118–176; BP diastolic 68–81; PULSE 55–87; RESP 18–20; TEMP 36–37.1; O2SAT 92–100
--- NOTE | 2021-12-30 | ECG_ITS ---
Test Reason : cp Blood Pressure : / mmHG Vent. Rate : 060 BPM Atrial Rate : 000 BPM P-R Int : 000 ms QRS Dur : 090 ms QT Int : 520 ms P-R-T Axes : 000 052 079 degrees QTc Int : 520 ms Atrial fibrillation Low voltage QRS ST & T wave abnormality, consider anterior ischemia Prolonged QT RSR' or QR pattern in V1 suggests right ventricular conduction delay Abnormal ECG When compared with ECG of 29-DEC-2021 10:55, Atrial fibrillation has replaced Sinus rhythm Referred By: Mckenna Henriquez Electronically Signed By:CELESTINO DOMINGUEZ MD
[2021-12-30] MEDS: Omeprazole 20 MG CAPSULE.DR PO ×2 (06:14→15:36)
[2021-12-30 06:19] LABS: Hematocrit 30.5 % (37.0-47.0); Hemoglobin 10.5 g/dl (12.0-16.0); Mean Corpuscular HGB Conc 34.4 g/dl (31.0-35.0); Mean Corpuscular Hemoglobin 28.6 pg (27.0-33.0); Mean Corpuscular Volume 83.1 fL (80.0-98.0); Mean Platelet Volume 12.3 fL (9.4-12.3); Red Blood Count 3.67 X10*6/uL (4.20-5.50); Red Cell Distribution Width 16.8 % (11.0-16.0); White Blood Count 6.5 X10*3/uL (4.8-10.8)
[2021-12-30 06:20] LABS: Platelet Count 76 X10*3/uL (160-400)
[2021-12-30 06:48] LABS: Anion Gap 18 (12-20); Blood Urea Nitrogen 33 mg/dL (9-16); Calcium 7.5 mg/dL (8.4-10.2); Carbon Dioxide 21 mmol/L (22-29); Chloride 96 mmol/L (96-108); Creatinine Clr Calc Pharmacy 13.5; Estimated Glomerular Filt Rate 19; Glucose Random 136 mg/dL (60-115); Magnesium 2.2 mg/dL (1.6-2.6); Potassium 3.9 mmol/L (3.3-5.1); Sodium 131 mmol/L (135-145)
[2021-12-30 07:50] LABS: Glucose, Whole Blood 115 mg/dL (60-115)
[2021-12-30 07:56] LABS: Estimated Average Glucose 128 mg/dL; Hemoglobin A1c % 6.1 %
[2021-12-30] MEDS: 0.9 % Sodium Chloride Flush 3 ML SYRINGE IVFLUSH ×2 (08:45→16:02)
[2021-12-30] MEDS: Lactated Ringers 1,000 ML 80 ML IVCONT (08:46)
[2021-12-30] MEDS: Isosorbide Mononitrate 30 MG TAB.ER.24H PO (08:48)
[2021-12-30] MEDS: clonazePAM 0.5 MG TABLET PO ×2 (08:48→20:06)
[2021-12-30] MEDS: Atorvastatin Calcium 40 MG TABLET PO (08:48)
[2021-12-30] MEDS: Magnesium Oxide 400 MG TABLET PO ×2 (08:48→20:06)
--- NOTE | 2021-12-30 11:31 | HO.PM.IMPN ---
Subjective Subjective Date of Service: 12/30/21 Interval History: seen and examined this morning Follow-up failure to thrive, NSTMI history obtained with the assistance of a electrical designer. Patient does not feel well this morning however denies any abdominal pain, chest pain, shortness of breath. Review of Systems Review of Systems: Yes all other systems are reviewed and are negative Constitutional Constitutional: Denies chills and Denies fever(s) Cardiovascular Cardiovascular: Denies chest pain, Denies palpitations and Denies dyspnea Respiratory Respiratory: Denies cough and Denies dyspnea Endocrine Endocrine: Denies palpitations Physical Exam Vital Signs: Vital Signs: Last Vital Signs Temp 97.4 F 12/30/21 07:32 Pulse 55 12/30/21 07:32 Resp 20 12/30/21 07:32 BP 162/81 H 12/30/21 07:32 Pulse Ox 99 12/30/21 07:32 O2 Del Method 12/30/21 07:32 O2 Flow Rate 100 12/28/21 06:36 BMI result Body Mass Index 20.3 Const: Other: chronically ill appearing General: comfortable, no acute distress, alert and awake Nutritional Appearance: thin Orientation/consciousness: oriented to person and oriented to place Resp: Effort & Inspection: normal respiratory effort and able to speak in complete sentences Cardio: Rate: regular rate Heart sounds: S1 normal heart sound present and S2 normal heart sound present GI: Inspection: No distended Palpation (GI): Soft to palpation and nontender Neuro: General: oriented to person and oriented to place Extrem: General: Yes no pedal edema Objective Data Active Medications Aspirin (Aspirin Enteric Coated 81 Mg Tablet.) 81 mg PO DAILY [facility] Last Admin: 12/29/21 11:39 Dose: Not Given Documented By: HUGH Non-Admin Reason: See Note Atorvastatin Calcium (Atorvastatin Calcium 40 Mg Tablet) 40 mg PO DAILY [facility] Last Admin: 12/30/21 08:48 Dose: 40 mg Documented By: DEBORA Clonazepam (Clonazepam 0.5 Mg Tablet) 0.5 mg PO BID [facility] Last Admin: 12/30/21 08:48 Dose: 0.5 mg Documented By: DEBORA Dextrose (Dextrose 50 % 25 Gm/50 Ml Syringe) 25 gm IVPUSH Q15M PRN; Protocol PRN Reason: per Hypoglycemia Standing Ord. Glucose (Glucose Gel 15 Gm Gel..Gram.) 15 gm PO Q15M PRN; Protocol PRN Reason: per Hypoglycemia Standing Ord. Lactated Ringer's (Lr) 1,000 mls @ 80 mls/hr IVCONT .[id number] [facility] Last Admin: 12/30/21 08:46 Dose: 80 mls/hr Documented By: DEBORA Isosorbide Mononitrate (Isosorbide Mononitrate 30 Mg Tab.Er.24h) 30 mg PO DAILY [facility]; Protocol Last Admin: 12/30/21 08:48 Dose: 30 mg Documented By: DEBORA Ketotifen Fumarate (Ketotifen Fumarate 0.025% Oph 5 Ml Drpbtl) 1 drop EYE-BOTH BID PRN PRN Reason: itch Magnesium Oxide (Magnesium Oxide 400 Mg Tablet) 400 mg PO BID [facility] Last Admin: 12/30/21 08:48 Dose: 400 mg Documented By: DEBORA Melatonin (Melatonin 3 Mg Tablet) 6 mg PO BEDTIME PRN PRN Reason: Insomnia Metoprolol Tartrate (Metoprolol Tartrate 12.5 Mg Halftab) 12.5 mg PO BID [facility]; Protocol Last Admin: 12/29/21 20:26 Dose: Not Given Documented By: JUAN A Non-Admin Reason: Decreased Heart Rate Nitroglycerin (Nitroglycerin 0.4 Mg Tab.Subl) 0.4 mg SUBLINGUAL Q5MX3 PRN PRN Reason: Chest Pain Non-Formulary Medication (Dronabinol) 2.5 mg PO BID [facility] Omeprazole (Omeprazole 20 Mg Capsule.Dr) 20 mg PO BID@0630,1630 [facility] Last Admin: 12/30/21 06:14 Dose: 20 mg Documented By: JUAN A Pharmacy Consult (Consult Rx Perform Med Rec) 1 each MISCELLANE ONCE PRN PRN Reason: Consult order Sodium Chloride (0.9 % Sodium Chloride Flush 3 Ml Syringe) 3 ml IVFLUSH QSHIFT [facility] Last Admin: 12/30/21 08:45 Dose: 3 ml Documented By: DEBORA Labs CBC & Chem 7: 12/30/21 05:41 12/30/21 05:41 Labs: Laboratory Results - last 24 hr 12/29/21 12/29/21 12/29/21 10:50 11:39 16:32 MCV MCH MCHC RDW Plt Count MPV Absolute Nucleated RBC Nucleated RBC % (auto) aPTT Heparin Protocol 48.1 L D Anion Gap Estim Creat Clear Calc Estimated GFR POC Glucose 154 H 175 H Random Glucose Estimat Average Glucose Hemoglobin A1c % Calcium Magnesium 12/29/21 12/30/21 12/30/21 20:33 05:41 05:41 MCV 83.1 MCH 28.6 MCHC 34.4 RDW 16.8 H Plt Count 76 L D MPV 12.3 Absolute Nucleated RBC 0.000 Nucleated RBC % (auto) 0.0 aPTT Heparin Protocol Anion Gap 18 Estim Creat Clear Calc 13.5 Estimated GFR 19 POC Glucose 173 H Random Glucose 136 H Estimat Average Glucose Hemoglobin A1c % Calcium 7.5 L Magnesium 2.2 12/30/21 12/30/21 05:41 07:38 MCV MCH MCHC RDW Plt Count MPV Absolute Nucleated RBC Nucleated RBC % (auto) aPTT Heparin Protocol Anion Gap Estim Creat Clear Calc Estimated GFR POC Glucose 115 Random Glucose Estimat Average Glucose 128 Hemoglobin A1c % 6.1 Calcium Magnesium Assessment and Plan (1) Prolonged QT interval: Status: Acute (2) Non-ST elevation [place] (NSTEMI): Status: Acute (3) Hyponatremia: Status: Acute Plan This is a 81-year-old female with pertinent history of pancreatic cancer on chemotherapy, ischemic cardiomyopathy with CHFrEF, CAD with h/o NSTEMI, essential hypertension, mixed hyperlipidemia, adult failure to thrive with protein calorie malnutrition was brought to the emergency department via EMS for evaluation of progressive generalized weakness. NSTEMI s/p heparin drip continue aspirin, statin, imdur metoprolol d/c for bradycardia Patient has previously refused cardiac catheterization transfuse to keep hematocrit around 30 Prolonged QT repeat EKG still with persistently prolonged QT despite regulation of K and Mag, 520 today avoid QT prolonging meds follow BMP continue to replace electrolytes tele monitoring cardiology following, possible due to underlying ischemic dz but due to frail condition, coomorbidities, renal failure, poor prognosis, not candidate for invasive intervention - this was communicated in detail with family Acute kidney injury on CKD4 likely prerenal, renal function improving with IVF creatinine down to 2.4 from 3.10 follow BMP hold lasix Hyponatremia sodium 131 today follow BMP Hypokalemia/ hypomagnesemia likely due to poor p.o. intake continue to replace electrolytes tele monitoring follow BMP Acute on chronic Thrombocytopenia platelets down to 76 follow CBC Adult failure to thrive with protein calorie malnutrition added ensure to diet. Prognosis is guarded due to underlying pancreatic cancer. was supposed to have hospice eval as outpatient, has declined hospice in past Generalized weakness due to underlying pancreatic cancer/FTT seen by PT - rec STR vs LTC Chronic HFrEF no decompensation at admission hold lasix for oonfre NIDDM with hyperglycemia not on baseline meds HbA1c 6.1 follow POCs, SSI Chronic normocytic anemia s/p PRbC transfusion as above. H/H stable follow CBC Mood disorder continue home po medications with exception of SSRI due to prolonged QT DVT prophylaxis: mechanical devices due to thrombocytopenia Full code- discussed with patient and daughter at bedside. has been recommended for hospice care by oncology. offered to have inpatient hospice evaluation. Had a long discussion with daughter lauryn and son Andrei about poor prognosis. Cardiology has had extensive discussion with family as well. Currently they would like her to remain full code. They plan to have discussion with all siblings. They are agree able to hospice evaluation. According to daughter goal would be home with hospice. Case management was updated and hospice evaluation will be arranged. Attending - dr. bliss Patient requires ongoing inpatient hospitaliation close cardiac monitoring/prolonged QTc. High risk for decompensation. Prognosis is guarded. Quality Stroke Does the patient have a stroke diagnosis?: No VTE Prior VTE?: No VTE Risk Level:: Medical - moderate - high VTE Device Contraindication: Treatment Not Indicated VTE Drug Contraindication: N/A - Med Ordered
[2021-12-30 12:16] LABS: Glucose, Whole Blood 152 mg/dL (60-115)
--- NOTE | 2021-12-30 12:48 | MHC.CM.PN ---
Addendum entered by Ev Landaverde 12/30/21 12:59: 1st choice for SNF is [facility]. A clinical update has been sent to the facility. Original Note: Per MD rounds Patient may be ready to discharge tomorrow. A Hospice consult has been requested. Preferences were obtained and a referral made to [facility]. A HCP has been documented and placed on the chart. The patient named her dtr Melinda as HCP. The patient had a HCP in the EMR; however the phone numbers were no longer in service.
--- NOTE | 2021-12-30 13:19 | MHC.CLN ---
F/U DIET RX: CARDIAC-MAY LIBERALIZE FOR INCREASE IN VARIETY TO INCREASE PO IF NEEDED. PT RECEIVING ENSURE TID TO PROVIDE 1050KCALS, 60G PROTEIN. INTAKE APPEARS TO BE 50% AT MEALS. MONITOR PO INTAKE CLOSELY
--- NOTE | 2021-12-30 16:04 | P.CDIC_ITS ---
CDI Concurrent Query Documentation Clarification: PHYSICIAN'S DOCUMENTATION REQUEST Date of Query: 12/30/21 [id number] Patient Name: Barbara Garcia Admit Date: 12/28/21 Dear Doctor, A review of the medical record indicates additional documentation may be needed. Please review below and update the documentation accordingly. Clinical Indicators: Documentation includes the diagnosis of malnutrition. Is there further specificity/clarification that correlates with the findings below: Risk Factors/Clinical Indicators/Treatments Per provider progress notes: - Adult failure to thrive with protein c alorie malnutrition -added ensure to diet. Prognosis is guarded due to underlying pancreatic cancer.? Patient is currently full code but family was scheduled to meet with hospice sales representative [employer] - Thin and chronically ill appearing. Per binder folder operator progress note on 12/29: - PT IS MODERATELY MALNOURISHED PT WITH MILDLY DEPLETED SUBCUTANEOUS FAT AND MUSCLE MASS WITH CHRONIC POOR PO INTAKE Other Indicators: BMI: 20.3 HEIGHT: 5ft WEIGHT: 47.3kg ASPEN Criteria* Acute Illness Chronic Illness Clinical Characteristic Non-Severe (2 or more criteria present) Severe (2 or more criteria present) Non-Severe (2 or more criteria present) Severe (2 or more criteria present) Energy Intake <75% for >7 days <=50% for >=5 days <75% for >=1 month <=75% for >=1 month Weight Loss 1 week 1 ? 2% >2% N/A N/A 1 month 5% >5% 5% >5% 3 months 7.5 % >7.5% 7.5% >7.5% 6 months N/A N/A 10% >10% 1 year N/A N/A 20% >20% Body Fat Mild Moderate Mild Severe Muscle Mass Mild Moderate Mild Severe Fluid Accumulation Mild Moderate to Severe Mild Severe Reduced Horticulture/Floriculture Teacher Strength N/A Measurably Reduced N/A Measurably Reduced *ACP Hospitalist, 2017 If possible, please provide in your progress notes, additional specificity regarding the severity of the malnutrition using the above information: * Mild * Moderate * Severe * Other (please specify) * Unable to determine Use of terms such as suspected, likely, concern for, or probable (associated with a specific diagnosis that is being evaluated, monitored, or treated as if it exists) are acceptable and can be coded in the inpatient setting, when documented at the time of discharge. Thank you, Paloma Zhu MS, RN, CCRN Extension: [phone] Please use your independent medical judgment in providing your response. THIS QUERY IS PART OF THE PERMANENT MEDICAL RECORD Provider Response: Moderate Protein-Calorie Malnutrition
--- NOTE | 2021-12-30 16:16 | P.CDIC_ITS ---
CDI Concurrent Query Documentation Clarification: PHYSICIAN'S DOCUMENTATION REQUEST Date of Query: 12/30/21 1616 Patient Name: Barbara Garcia Admit Date: 12/28/21 Dear Doctor, A review of the medical record indicates additional documentation may be needed. Please review below and update the documentation accordingly. Clinical Indicators: Is there a diagnosis that correlates with the findings below: Risk Factors/Clinical Indicators/Treatments Per provider progress note on 12/30: Chronic normocytic anemia s/p PRbC transfusion as above Labs: Hgb on 12/27: 8.2 Hct on 12/28: 23.9 Hgb on 12/27: 8.3 Hct on 12/28: 24.1 Transfusions: Leukocyte-Reduced Red Blood Cells administered on 12/28 Based on the above, could you clarify in the Progress Notes which of the following is the most likely type of anemia you are evaluating, treating, and/or monitoring? * Acute on chronic normocytic anemia * Chronic normocytic anemia * Other ? please specify * Unable to determine Use of terms such as suspected, likely, concern for, or probable (associated with a specific diagnosis that is being evaluated, monitored, or treated as if it exists) are acceptable and can be coded in the inpatient setting, when documented at the time of discharge. Thank you, Paloma Zhu MS, RN, CCRN Extension: [phone] Please use your independent medical judgment in providing your response. THIS QUERY IS PART OF THE PERMANENT MEDICAL RECORD Provider Response: Other Other Diagnosis: acute on chronic normocytic anemia
[2021-12-30 16:45] LABS: Glucose, Whole Blood 159 mg/dL (60-115)
[2021-12-30 20:01] LABS: Glucose, Whole Blood 162 mg/dL (60-115)
[2021-12-31] VITALS (7 sets, daily range): BP systolic 113–139; BP diastolic 59–87; PULSE 73–85; RESP 15–18; TEMP 36–36.4; O2SAT 97–99
[2021-12-31] MEDS: 0.9 % Sodium Chloride Flush 3 ML SYRINGE IVFLUSH ×3 (00:58→17:15)
[2021-12-31] MEDS: Omeprazole 20 MG CAPSULE.DR PO (06:05)
[2021-12-31 07:27] LABS: Anion Gap 21 (12-20); Blood Urea Nitrogen 35 mg/dL (9-16); Calcium 8.1 mg/dL (8.4-10.2); Carbon Dioxide 20 mmol/L (22-29); Chloride 94 mmol/L (96-108); Creatinine Clr Calc Pharmacy 13.3; Estimated Glomerular Filt Rate 19; Glucose Random 150 mg/dL (60-115); Magnesium 2.2 mg/dL (1.6-2.6); Potassium 4.4 mmol/L (3.3-5.1); Sodium 131 mmol/L (135-145)
[2021-12-31 08:34] LABS: Glucose, Whole Blood 147 mg/dL (60-115)
[2021-12-31 10:20] LABS: MANUAL DIFF FLAG NO
[2021-12-31 10:21] LABS: Basophils Percent Auto 0.1 % (0-2); Eosinophils Percent Auto 0.1 % (0-4); Hematocrit 32.5 % (37.0-47.0); Hemoglobin 10.8 g/dl (12.0-16.0); Imm Gran Abs Auto 0.08 X10*3/uL (0.00-0.03); Imm Gran Pct Auto 0.5 % (0.0-0.4); Lymphocytes Absolute Auto 0.4 X10*3/uL (1.2-4.9); Lymphocytes Percent Auto 2.6 % (20-40); Mean Corpuscular HGB Conc 33.2 g/dl (31.0-35.0); Mean Corpuscular Hemoglobin 27.6 pg (27.0-33.0); Mean Corpuscular Volume 82.9 fL (80.0-98.0); Mean Platelet Volume 11.9 fL (9.4-12.3); Monocytes Absolute Auto 0.6 X10*3/uL (0.1-1.2); Monocytes Percent Auto 3.5 % (2-11); Neutrophils Absolute Auto 14.6 x10*3/uL (2.0-8.3); Platelet Count 155 X10*3/uL (160-400); Red Blood Count 3.92 X10*6/uL (4.20-5.50); Red Cell Distribution Width 16.7 % (11.0-16.0); SCAN SMEAR FLAG 1; White Blood Count 15.7 X10*3/uL (4.8-10.8)
[2021-12-31] MEDS: Isosorbide Mononitrate 30 MG TAB.ER.24H PO (10:41)
[2021-12-31] MEDS: clonazePAM 0.5 MG TABLET PO ×2 (10:42→20:13)
[2021-12-31] MEDS: Atorvastatin Calcium 40 MG TABLET PO (10:42)
[2021-12-31] MEDS: Magnesium Oxide 400 MG TABLET PO ×2 (10:42→20:13)
[2021-12-31 10:44] LABS: Neutrophils Percent Auto 93.2 % (45-73)
[2021-12-31 11:39] LABS: Glucose, Whole Blood 149 mg/dL (60-115)
--- NOTE | 2021-12-31 13:50 | P.PNIM_ITS ---
Subjective Subjective Date of Service: 12/31/21 Interval History: pt seen and examined at bedside. Talked to her family including her daughters and 3 sons at bedside. gave them update. Pt has no acute complaints. reports to joss that she has moved her bowels. she chronic pain, with no acute change. denies any chest pain. no sob. awaiting to hear back from hospice Review of Systems Review of Systems: Yes all other systems are reviewed and are negative Physical Exam Vital Signs: Vital Signs: Last Vital Signs Temp 97.3 F 12/31/21 12:00 Pulse 80 12/31/21 12:00 Resp 18 12/31/21 12:00 BP 116/65 12/31/21 12:00 Pulse Ox 97 12/31/21 12:00 O2 Del Method 12/31/21 08:00 O2 Flow Rate 2 12/30/21 18:48 BMI result Body Mass Index 20.3 Const: Other: pt is awake, alert, no acute distress Resp: Other: no resp distress. lungs clear to auscultation bilaterally GI: Other: abd is soft, grimaces when i palpate abdomen Objective Data Active Medications Aspirin (Aspirin Enteric Coated 81 Mg Tablet.) 81 mg PO DAILY [facility] Last Admin: 12/29/21 11:39 Dose: Not Given Documented By: HUGH Non-Admin Reason: See Note Atorvastatin Calcium (Atorvastatin Calcium 40 Mg Tablet) 40 mg PO DAILY [facility] Last Admin: 12/31/21 10:42 Dose: 40 mg Documented By: TOMAS Clonazepam (Clonazepam 0.5 Mg Tablet) 0.5 mg PO BID [facility] Last Admin: 12/31/21 10:42 Dose: 0.5 mg Documented By: TOMAS Dextrose (Dextrose 50 % 25 Gm/50 Ml Syringe) 25 gm IVPUSH Q15M PRN; Protocol PRN Reason: per Hypoglycemia Standing Ord. Glucose (Glucose Gel 15 Gm Gel..Gram.) 15 gm PO Q15M PRN; Protocol PRN Reason: per Hypoglycemia Standing Ord. Isosorbide Mononitrate (Isosorbide Mononitrate 30 Mg Tab.Er.24h) 30 mg PO DAILY [facility]; Protocol Last Admin: 12/31/21 10:41 Dose: 30 mg Documented By: TOMAS Ketotifen Fumarate (Ketotifen Fumarate 0.025% Oph 5 Ml Drpbtl) 1 drop EYE-BOTH BID PRN PRN Reason: itch Magnesium Oxide (Magnesium Oxide 400 Mg Tablet) 400 mg PO BID [facility] Last Admin: 12/31/21 10:42 Dose: 400 mg Documented By: TOMAS Melatonin (Melatonin 3 Mg Tablet) 6 mg PO BEDTIME PRN PRN Reason: Insomnia Metoprolol Tartrate (Metoprolol Tartrate 12.5 Mg Halftab) 12.5 mg PO BID [facility]; Protocol Last Admin: 12/29/21 20:26 Dose: Not Given Documented By: JUAN A Non-Admin Reason: Decreased Heart Rate Nitroglycerin (Nitroglycerin 0.4 Mg Tab.Subl) 0.4 mg SUBLINGUAL Q5MX3 PRN PRN Reason: Chest Pain Non-Formulary Medication (Dronabinol) 2.5 mg PO BID [facility] Omeprazole (Omeprazole 20 Mg Capsule.Dr) 20 mg PO BID@0630,1630 [facility] Last Admin: 12/31/21 06:05 Dose: 20 mg Documented By: ALEJANDRO Pharmacy Consult (Consult Rx Perform Med Rec) 1 each MISCELLANE ONCE PRN PRN Reason: Consult order Sodium Chloride (0.9 % Sodium Chloride Flush 3 Ml Syringe) 3 ml IVFLUSH QSHIFT [facility] Last Admin: 12/31/21 10:42 Dose: 3 ml Documented By: TOMAS Labs CBC & Chem 7: 12/31/21 10:10 12/31/21 06:24 Labs: Laboratory Results - last 24 hr 12/30/21 12/30/21 12/31/21 16:41 19:57 06:24 MCV MCH MCHC RDW Plt Count MPV Immature Gran % (Auto) Neut % (Auto) Lymph % (Auto) [place] % (Auto) Eos % (Auto) Baso % (Auto) Lymph # (Auto) [place] # (Auto) Eos # (Auto) Baso # (Auto) Abs Immat Gran (auto) Absolute Neuts (auto) Absolute Nucleated RBC Nucleated RBC % (auto) Anion Gap 21 H Estim Creat Clear Calc 13.3 Estimated GFR 19 POC Glucose 159 H 162 H Random Glucose 150 H Calcium 8.1 L D Magnesium 2.2 11/12/22 11/12/22 11/12/22 08:30 10:10 11:35 MCV 82.9 MCH 27.6 MCHC 33.2 RDW 16.7 H Plt Count 155 L D MPV 11.9 Immature Gran % (Auto) 0.5 H Neut % (Auto) 93.2 H Lymph % (Auto) 2.6 L [place] % (Auto) 3.5 Eos % (Auto) 0.1 Baso % (Auto) 0.1 Lymph # (Auto) 0.4 L [place] # (Auto) 0.6 Eos # (Auto) 0.0 Baso # (Auto) 0.0 Abs Immat Gran (auto) 0.08 H Absolute Neuts (auto) 14.6 H Absolute Nucleated RBC 0.000 Nucleated RBC % (auto) 0.0 Anion Gap Estim Creat Clear Calc Estimated GFR POC Glucose 147 H 149 H Random Glucose Calcium Magnesium Assessment and Plan (1) Prolonged QT interval: Status: Acute (2) Non-ST elevation SC (NSTEMI): Status: Acute (3) Hyponatremia: Status: Acute (4) Hypokalemia: Status: Acute (5) Acute kidney injury superimposed on chronic kidney disease: Status: Acute (6) Elevated brain natriuretic peptide (BNP) level: Status: Acute Plan This is a 81-year-old female with pertinent history of pancreatic cancer on chemotherapy, ischemic cardiomyopathy with CHFrEF, CAD with h/o NSTEMI, essential hypertension, mixed hyperlipidemia, adult failure to thrive with protein calorie malnutrition was brought to the emergency department via EMS for evaluation of progressive generalized weakness. # NSTEMI - s/p heparin drip - continue aspirin, statin, imdur - metoprolol was discontinued for bradycardia - Patient has previously refused cardiac catheterization #Prolonged QT - EKG still with persistently prolonged QT despite regulation of K and Mag, - avoid QT prolonging meds - continue to replace electrolytes as needed - cardiology following, possible due to underlying ischemic dz but due to frail condition, coomorbidities, renal failure, poor prognosis, not candidate for invasive intervention - this was communicated in detail with family and they understand the implication - Pt will be going home on home hospice on sunday #Acute kidney injury on CKD4 - close to baseline - likely prerenal, renal function improving with IVF - continue to hold lasix # Hyponatremia - sodium 131- stable - at this time family wants minmal blood draws as she is going on hospice and do not want her to be poked and caused discomfort # Hypokalemia/ hypomagnesemia - likely due to poor p.o. intake - Hypokalemia resolved - tele monitoring # Acute on chronic Thrombocytopenia - stable - pt want minimal blood draws unless necessary # Adult failure to thrive with protein calorie malnutrition - added ensure to diet. Prognosis is guarded due to underlying pancreatic cancer. - pt will be discharge on home hospice # Generalized weakness - due to underlying pancreatic cancer/FTT - home hospice # Chronic HFrEF -no decompensation at this time -hold lasix for onofre NIDDM with hyperglycemia not on baseline meds HbA1c 6.1 follow POCs, SSI Chronic normocytic anemia s/p PRbC transfusion as above. H/H stable follow CBC Mood disorder continue home po medications with exception of SSRI due to prolonged QT DVT prophylaxis: mechanical devices due to thrombocytopenia Full code- discussed with patient and daughter at bedside. has been recommended for hospice care by oncology. offered to have inpatient hospice evaluation. Had a long discussion with daughter lauryn and son Andrei about poor prognosis. Cardiology has had extensive discussion with family as well. Currently they would like her to remain full code. They plan to have discussion with all siblings. They are agree able to hospice evaluation. According to daughter they want pt to be going home with home hospice. Hospice accepted pt, will discharge in AM with hospice start date on sunday Patient requires ongoing inpatient hospitaliation close cardiac monitoring/prolonged QTc. High risk for decompensation. Prognosis is guarded. Quality Stroke Does the patient have a stroke diagnosis?: No VTE Prior VTE?: No VTE Risk Level:: Medical - moderate - high VTE Device Contraindication: Treatment Not Indicated VTE Drug Contraindication: N/A - Med Ordered
[2021-12-31 15:28] LABS: Glucose, Whole Blood 128 mg/dL (60-115)
[2021-12-31 21:26] LABS: Glucose, Whole Blood 160 mg/dL (60-115)
[2022-01-01] MEDS: 0.9 % Sodium Chloride Flush 3 ML SYRINGE IVFLUSH (01:38)
[2022-01-01 03:24] VITALS: BP 122/59; PULSE 83; RESP 19; TEMP 36.7; O2SAT 98
[2022-01-01] MEDS: Omeprazole 20 MG CAPSULE.DR PO (06:09)
[2022-01-01 07:45] LABS: Glucose, Whole Blood 131 mg/dL (60-115)
[2022-01-01 08:00] VITALS: BP 129/78; PULSE 82; RESP 19; TEMP 36.4; O2SAT 98
[2022-01-01 08:03] LABS: Anion Gap 18 (12-20); Blood Urea Nitrogen 36 mg/dL (9-16); Calcium 7.8 mg/dL (8.4-10.2); Carbon Dioxide 21 mmol/L (22-29); Chloride 96 mmol/L (96-108); Creatinine Clr Calc Pharmacy 12.6; Estimated Glomerular Filt Rate 18; Glucose Random 149 mg/dL (60-115); Potassium 4.6 mmol/L (3.3-5.1); Sodium 130 mmol/L (135-145)
[2022-01-01] MEDS: Atorvastatin Calcium 40 MG TABLET PO (08:24)
[2022-01-01] MEDS: Isosorbide Mononitrate 30 MG TAB.ER.24H PO (08:24)
[2022-01-01] MEDS: clonazePAM 0.5 MG TABLET PO (08:24)
[2022-01-01] MEDS: Magnesium Oxide 400 MG TABLET PO (08:24)
[2022-01-01] MEDS: 0.9 % Sodium Chloride 1,000 ML 125 ML IVCONT (08:32)
--- NOTE | 2022-01-01 11:33 | PM.DS ---
DS: Providers Provider Date of Service: 01/01/22 Date of admission: 12/28/21 01:31 Primary care physician: Maddison Saini DO Consults: 12/27/21 23:31 Consult to Cardiology Stat Consulting Provider: Valentín Stevenson Reason for consultation: CP, elevated trop 12/28/21 02:10 Consult to Care Team Routine Comment: Reason for consultation: hospice consult DS: Diagnosis Discharge Diagnosis (1) Prolonged QT interval: Status: Acute (2) Non-ST elevation MN (NSTEMI): Status: Acute (3) Hyponatremia: Status: Acute (4) Hypokalemia: Status: Acute (5) Acute kidney injury superimposed on chronic kidney disease: Status: Acute (6) Elevated brain natriuretic peptide (BNP) level: Status: Acute DS: Summary Hospital Course Hospital Course: 81-year-old female with history of pancreatic cancer on chemotherapy, history of schema cardiomyopathy with CHF with reduced ejection fraction, history of CAD with history of NSTEMI, HTN, and failure to thrive who came into the hospital on 12/28 for progressive generalized weakness. Patient was admitted and managed conservatively for NSTEMI with heparin ggt, aspirin, statin, and Imdur. Metoprolol was discontinued due to bradycardia. Patient was also found to have prolonged QT likely secondary to underlying ischemic disease, patient's potassium and magnesium are optimize and despite this she continued to have prolonged QT with no arrhythmias. Patient was also treated for THERON on CKD with improvement in her creatinine and GFR. She was also managed for failure to thrive secondary to protein calorie malnutrition, likely secondary to underlying pancreatic cancer. Patient was evaluated by PT who recommended short-term rehab versus long-term care, this was discussed with her family, they want patient to be going home. Hospice was discussed, at this time they are agreeable to take patient home on home hospice. Home hospice was arranged, patient's home hospice will be again on Sunday the 02 of January. MOLTS was signed and documented by her daughter and her son hospice care comfort medications were ordered. Patient to R\repeat BMP and follow with primary care in less than a week. Will continue her antihypertensives, nitroglycerin p.r.n. for chest pain, furosemide was stopped due to THERON as well as poor oral intake. Follow-up with PCP prior to resuming furosemide Time Spent with Patient Time attestation: Total time spent providing and/or coordinating discharge services: Discharge coordination time: Greater than 30 minutes Quality: Safe Use of Opioids Does Pt have an Active Cancer Diagnosis on the Problem List?: Yes Opioid Measure Date for [facility] Report: 12/02/21 Opioid Measure Time for [facility] Report: 11:41 Quality: Stroke Does the patient have a stroke diagnosis?: No Physical Exam Vital Signs: Vital Signs: Last Vital Signs Temp 97.5 F 01/01/22 08:00 Pulse 82 01/01/22 08:00 Resp 19 01/01/22 08:00 BP 129/78 01/01/22 08:00 Pulse Ox 98 01/01/22 08:00 O2 Del Method 01/01/22 08:00 O2 Flow Rate 2 12/30/21 18:48 BMI result Body Mass Index 20.3 Const: Other: patient alert oriented, eating her breakfast, denies any acute complaint Resp: Other: normal respiratory effort, lungs clear to auscultation bilaterally GI: Other: abdomen is soft, nontender Neuro: Other: alert oriented x3 Extrem: Other: no lower extremity edema DS: Data Data Completed and Pending Completed studies during hospitalization [Text1]: Procedures Drainage of Left Pleural Cavity, Percutaneous Approach (07/17/21) Drainage of Peritoneal Cavity, Percutaneous Approach (11/15/21) Transfusion of Nonautologous Red Blood Cells into Peripheral Vein, Percutaneous Approach (11/20/21) Labs on day of discharge: Laboratory Results - last 24 hr 12/31/21 12/31/21 12/31/21 11:35 15:21 21:17 Sodium Potassium Chloride Carbon Dioxide Anion Gap BUN Creatinine Estim Creat Clear Calc Estimated GFR POC Glucose 149 H 128 H 160 H Random Glucose Calcium 01/01/22 01/01/22 06:40 07:35 Sodium 130 L Potassium 4.6 Chloride 96 Carbon Dioxide 21 L Anion Gap 18 BUN 36 H Creatinine 2.59 H Estim Creat Clear Calc 12.6 Estimated GFR 18 POC Glucose 131 H Random Glucose 149 H Calcium 7.8 L Discharge Plan Discharge Anticipated Discharge Date/Time: 01/01/22 13:17 Patient Disposition: Hospice - Home Discharge Diagnosis: NSTEMI, THERON, Pancreatic cancer Referrals: Jacquelyn Mccormick MD [Physician] - 1 Week Maddison Saini DO [Primary Care Provider] - 1 Week Discharge Medications: New morphine concentrate 100 mg/5 mL (20 mg/mL) solution 5 mg PO Q3H PRN (Reason: pain/comfort) 15 Days Qty: 30 0RF Rx Instructions: Partial Fill upon patient request. scopolamine base 1 mg over 3 days patch 3 day 1 patch transdermal Q72H 12 Days Qty: 4 0RF Rx Instructions: 1 patch behind ear Q72H for secretions lorazepam [Lorazepam Intensol] 2 mg/mL concentrate 0.5 mg PO Q4H PRN (Reason: anxiety/restlessness) Qty: 30 0RF nitroglycerin [Nitrostat] 0.4 mg Tablet, Sublingual 0.4 mg sublingual Q5MX3 Qty: 10 0RF Continued amlodipine 2.5 mg tablet 2.5 mg PO BEDTIME Qty: 90 1RF megestrol 625 mg/5 mL (125 mg/mL) Suspension 625 mg PO DAILY Qty: 250 3RF loperamide [Imodium A-D] 2 mg Tablet 2 mg PO Q6H PRN (Reason: Diarrhea) Qty: 30 0RF tolterodine 2 mg capsule,extended release 24hr 2 mg PO DAILY sertraline 100 mg tablet 200 mg PO DAILY aspirin 81 mg tablet,delayed release (DR/EC) 81 mg PO DAILY Qty: 90 3RF ondansetron 8 mg Tablet,Disintegrating 8 mg PO Q8H PRN (Reason: Nausea) Qty: 30 3RF dronabinol 2.5 mg Capsule 2.5 mg PO BID Qty: 60 5RF Rx Instructions: administer before lunch and evening meal/dinner pantoprazole 40 mg tablet,delayed release (DR/EC) 1 tab PO BID magnesium oxide 400 mg (241.3 mg magnesium) Tablet 400 mg PO BID Qty: 60 0RF potassium chloride 10 mEq tablet extended release 1 tab PO DAILY atorvastatin 40 mg tablet 1 tab PO DAILY isosorbide mononitrate 30 mg tablet extended release 24 hr 1 tab PO QAM ketotifen fumarate 0.025 % (0.035 %) drops 1 drp ophthalmic (eye) BID PRN (Reason: itch) Held furosemide 40 mg tablet 40 mg PO DAILY Hold Instructions: Resume on 01/06/22. rpt BMP, follow with primary care physician before starting Protocol: Hold for SBP< HOLD for SBP < : 90 Discontinued clonazepam 0.5 mg tablet 0.5 mg PO BID metoprolol tartrate 25 mg tablet 0.5 tab PO BID Discharge Orders: Discharge Order (Routine); Ordered 01/01/22 Ordered By: Maria Alejandra Gallagher Diet: Diabetic diet Activity on Discharge: As tolerated Stand Alone Forms: Patient Portal Discharge page Other Ambulatory Orders: Basic Metabolic Panel Fasting (Routine) Timeframe: 3 Days Facility: [facility] - Location: Laboratory Ordered By: Maria Alejandra Gallagher Care Plan Goals: You are being discharged home on home hospice. please continue to follow with PCP and Dr. Mccormick Hematology/oncology for further medical care please follow hospice recommendation and management Health Concerns: myocardial infarction- you were managed and treated for NSTEMI THERON- you were also managed and treated for kidney failure that has now improved- please hyponatremia- low sodium level- improved, please rpt lab work and follow with primary care physician MARITZA has been signed and documented in file Plan of Treatment: Will be discharged on hospice comfort medications discontinue clonazepam and start lorazepam for anxiety and restlessness Do BMP in 3-5 days and follow with PCP please stop taking metoprolol due to low heart rate Assessment: see above
[2022-01-01 12:12] LABS: Anion Gap 19 (12-20); Blood Urea Nitrogen 38 mg/dL (9-16); Carbon Dioxide 23 mmol/L (22-29); Chloride 94 mmol/L (96-108); Creatinine Clr Calc Pharmacy 11.9; Estimated Glomerular Filt Rate 17; Glucose Random 151 mg/dL (60-115); Potassium 4.1 mmol/L (3.3-5.1); Sodium 132 mmol/L (135-145)
--- NOTE | 2022-01-01 12:41 | MHC.CM.PN ---
DP: PATIENT WILL DC HOME TODAY WITH HOSPICE CARE. [facility] WILL BE DOING A SIGN ON 01/02/22. FAMILY AWARE. [facility] NOTIFIED OF TODAY'S DISCHARGE. RN AWARE. BLS TO TRANSPORT AT 1 PM VIA [facility]
[2022-01-01] MEDS: Heparin Sodium,Porcine Flush 50 UNITS/5 ML SYRINGE IVFLUSH (12:44)
--- NOTE | 2022-01-02 10:42 | P.CDIR_ITS ---
Retrospective Query Documentation Clarification: PHYSICIAN'S DOCUMENTATION REQUEST Date of Query:? 01/02/22? 1616 Patient Name: Barbara Garcia Admit Date: 12/28/21 Dear Doctor, A review of the medical record indicates additional documentation may be needed. Please review below and?update the documentation accordingly. Clinical Indicators: Is there a diagnosis that correlates with the findings below: Risk Factors/Clinical Indicators/Treatments Per provider progress note on 12/30: Chronic normocytic anemia s/p PRbC transfusion as above Labs: Hgb on 12/27: 8.2 Hct on 12/28: 23.9 Hgb on 12/27: 8.3 Hct on 12/28: 24.1 Transfusions: Leukocyte-Reduced Red Blood Cells administered on 12/28 ? Based on the above, could you clarify in the Progress Notes which of the following is the most likely type of anemia you are evaluating, treating, and/or monitoring? ? * Acute on chronic normocytic anemia * Chronic normocytic anemia * Other?? please specify * Unable to determine? Use of terms such as suspected, likely, concern for, or probable (associated with a specific diagnosis that is being evaluated, monitored, or treated as if it exists) are acceptable and can be coded in the inpatient setting, when documented at the time of discharge. Thank you, Paloma Zhu MS, RN, CCRN Extension: [phone] Please use your independent medical judgment in providing your response. THIS QUERY IS PART OF THE PERMANENT MEDICAL RECORD
--- NOTE | 2022-01-02 10:43 | MHC.CDI.RETR ---
Retrospective Query Documentation Clarification: PHYSICIAN'S DOCUMENTATION REQUEST Date of Query:? 01/02/22? 1044 Patient Name: Barbara Garcia Admit Date: 12/28/21 Dear Doctor, A review of the medical record indicates additional documentation may be needed. Please review below and?update the documentation accordingly. Clinical Indicators: Documentation includes the diagnosis of malnutrition. Is there further specificity/clarification that correlates with the findings below: Risk Factors/Clinical Indicators/Treatments Per provider progress notes: - Adult failure to thrive with protein calorie malnutrition -added ensure to diet. Prognosis is guarded due to underlying pancreatic cancer.? Patient is currently full code but family was scheduled to meet with hospice sales representative printing supplies - Thin and chronically ill appearing. Per handbag operator progress note on 12/29: - PT IS MODERATELY MALNOURISHEDPT WITH MILDLY DEPLETED SUBCUTANEOUS FAT AND MUSCLE MASS WITH CHRONIC POOR PO INTAKE Other Indicators: BMI: 20.3 HEIGHT: 5ft WEIGHT: 47.3kg ? ASPEN Criteria*? Acute Illness ? Chronic Illness ? Clinical Characteristic Non-Severe (2 or more criteria present) Severe(2 or more criteria present) ? Non-Severe (2 or more criteria present) Severe(2 or more criteria present) Energy Intake <75% for >7 days <=50% for >=5 days ? <75% for >=1 month <=75% for >=1 month Weight Loss ? 1 week 1 ? 2% >2% ? N/A N/A 1 month 5% >5% ? 5% >5% 3 months 7.5 % >7.5% ? 7.5% >7.5% 6 months N/A N/A ? 10% >10% 1 year N/A N/A ? 20% >20% Body Fat Mild Moderate ? Mild Severe Muscle Mass Mild Moderate ? Mild Severe Fluid Accumulation Mild Moderate to Severe ? Mild Severe Reduced Venue Coordinator Strength N/A Measurably Reduced ? N/A Measurably Reduced *[facility] Hospitalist, 2017 If possible, please provide in your progress notes, additional specificity regarding the severity of the malnutrition using the above information: ? Mild Moderate Severe Other?(please specify) Unable to determine? Use of terms such as suspected, likely, concern for, or probable (associated with a specific diagnosis that is being evaluated, monitored, or treated as if it exists) are acceptable and can be coded in the inpatient setting, when documented at the time of discharge. Thank you, Paloma Zhu MS, RN, CCRN Extension: [phone] Please use your independent medical judgment in providing your response. THIS QUERY IS PART OF THE PERMANENT MEDICAL RECORD
== END 2022-01-01 14:18 | disposition hospice, home (50) | DRG 281 ==
LOC: HO.ED 22:40 → HO.EDOVER 12-28 01:37 → HO.IMC 12-28 19:15
PROVIDERS: Physician Assistant; Physician Assistant Medical; Admitting Provider Student in an Organized Health Care Education/Training Program; Emergency Provider Internal Medicine; PCP Family Medicine; Visit Provider Internal Medicine
DX: I21.4 Non-ST elevation (NSTEMI) myocardial infarction (principal); C25.9 Malignant neoplasm of pancreas, unspecified; E87.1 Hypo-osmolality and hyponatremia; N17.9 Acute kidney failure, unspecified; I13.0 Hypertensive heart and chronic kidney disease with heart failure and stage 1 through stage 4 chronic kidney disease, or unspecified chronic kidney disease; N18.4 Chronic kidney disease, stage 4 (severe); I50.22 Chronic systolic (congestive) heart failure; E46 Unspecified protein-calorie malnutrition; E44.0 Moderate protein-calorie malnutrition; I25.5 Ischemic cardiomyopathy; E11.22 Type 2 diabetes mellitus with diabetic chronic kidney disease; E86.1 Hypovolemia; R62.7 Adult failure to thrive; Z68.20 Body mass index [BMI] 20.0-20.9, adult; E11.65 Type 2 diabetes mellitus with hyperglycemia; D63.0 Anemia in neoplastic disease; D63.1 Anemia in chronic kidney disease; F39 Unspecified mood [affective] disorder; R94.31 Abnormal electrocardiogram [ECG] [EKG]; E87.6 Hypokalemia; E83.42 Hypomagnesemia; D69.6 Thrombocytopenia, unspecified; G89.29 Other chronic pain; D64.9 Anemia, unspecified; I25.10 Atherosclerotic heart disease of native coronary artery without angina pectoris; Z20.822 Contact with and (suspected) exposure to COVID-19; Z91.040 Latex allergy status; Z88.1 Allergy status to other antibiotic agents; Z88.8 Allergy status to other drugs, medicaments and biological substances; Z79.899 Other long term (current) drug therapy
CPT/HCPCS: 36415; 71045; 80048; 80053; 80076; 81003; 82550; 82947; 83036; 83690; 83735; 83880; 84132; 84484; 85025; 85027; 85610; 85730; 86850; 86900; 86901; 86923; 87635; 93005; 97110; 97163; 99285; J1642; J2270; J3475; P9016